=== PATIENT | male | born 1935 | race Caucasian/White ===

== ENCOUNTER 2017-02-04 16:53 | Inpatient (IN) | payer MEDICARE, BC ==
--- NOTE | 2017-02-04 17:41 | ER Document Report ---
ED General - General Time seen by provider: 17:38 Mode of Arrival: Medic Information source: Patient, Relative TRAVEL OUTSIDE OF THE [place] IN LAST 30 DAYS: No <CHILANGO LOPEZ - Last Filed: 02/04/17 20:14> <SHAMAR BELTRAN - Last Filed: 02/04/17 22:13> - General Chief Complaint: Shortness Of Breath Stated Complaint: RESPIRATORY DISTRESS Notes: 81-year-old male with 3 day history of worsening shortness of breath causing and uses home oxygen. He reports prior admission for pneumonia with similar symptoms. He also has history of COPD and is followed by pulmonology locally. He thinks his cough is been productive white or green sputum. He reports a remote history of cardiac bypass surgery and prior to that was having chest pain but he has not had any such symptoms recently. He reports no cardiac workup since his bypass surgery. He denies swelling to extremities, chest pain , abdominal pain, back pain, earache, sore throat, fevers, or chills. Has been using inhalers at home without improvement. He received one nebulizer treatment and 125 of soluMedrol IV from ambulance personnel in route. Physical Exam: General: Alert, appears well. HEENT: Normocephalic. Atraumatic. PERRLA. Extraocular movements intact. Oropharynx clear. Neck: Supple. Non-tender. Respiratory: Mild respiratory distress. Wheezes rhonchi throughout all lung hernandez with prolonged expiratory phase and diminished aeration Cardiovascular: Regular rate and rhythm. Abdominal: Normal Inspection. Soft, non-tender. No distension. Normal Bowel Sounds. Back: Non-tender. No deformity or step off. Extremities: Moves all four extremities. Upper extremities: Normal inspection. Non-tender. Normal color. Normal ROM. Normal temperature. Lower extremities: Normal inspection. Non-tender. No edema. Normal color. Normal ROM. Normal temperature. Neurological: Speech clear mentation normal engineering drawings checker strength 5 out of 5 equal both upper extremities motor function 5 out of 5 equal both lower extremities Psychological: Normal affect. Normal Mood. Skin: Warm. Dry. Normal color. (CHILANGO LOPEZ) - Related Data Allergies/Adverse Reactions: No Known Allergies Allergy (Verified 10/30/16 06:40) Past Medical History - Social History Smoking Status: Former Smoker Family History: Malignancy - Brain tumor - Past Medical History Cardiac Medical History: Reports: Hx Atrial Fibrillation, Hx Coronary Artery Disease, Hx Heart Attack - 08/2009, Hx Hypercholesterolemia, Hx Hypertension Pulmonary Medical History: Reports: Hx COPD, Hx Pneumonia Denies: Hx Asthma Neurological Medical History: Denies: Hx Cerebrovascular Accident, Hx Seizures GI Medical History: Denies: Hx Hepatitis, Hx Hiatal Hernia, Hx Ulcer Musculoskeltal Medical History: Reports Hx Arthritis, Reports Hx Musculoskeletal Trauma Psychiatric Medical History: Denies: Hx Depression Infectious Medical History: Denies: Hx Hepatitis Past Surgical History: Reports: Hx Appendectomy, Hx Coronary Artery Bypass Graft , Hx Open Heart Surgery, Hx Orthopedic Surgery - back surgery, Hx Pacemaker - Immunizations Immunizations up to date: Yes Hx Diphtheria, Pertussis, Tetanus Vaccination: Yes <CHILANGO LOPEZ - Last Filed: 02/04/17 20:14> Review of Systems - Review of Systems Constitutional: See HPI EENT: denies: Ear pain, Throat pain Cardiovascular: See HPI Respiratory: See HPI Gastrointestinal: denies: Abdominal pain, Diarrhea, Nausea, Vomiting, Blood in vomit, Black stools, Rectal bleeding Genitourinary: denies: Burning, Dysuria Musculoskeletal: Back pain - Chronic not different than baseline. denies: Leg swelling, Ankle swelling Skin: denies: Rash Hematologic/Lymphatic: denies: Swollen glands Neurological/Psychological: denies: Weakness, Numbness <CHILANGO LOPEZ - Last Filed: 02/04/17 20:14> Course - Laboratory Result Diagrams: 02/04/17 17:34 02/04/17 17:34 - Diagnostic Test Radiology reviewed: Image reviewed, Reports reviewed <CHILANGO LOPEZ - Last Filed: 02/04/17 20:14> - Laboratory Result Diagrams: 02/04/17 17:34 02/04/17 17:34 <SHAMAR BELTRAN - Last Filed: 02/04/17 22:13> - Re-evaluation Re-evalutation: 02/04/17 19:59 Patient is sitting up and eating and oxygen saturations 96% on 2 L as a cannula. Patient reports he does not routinely use oxygen at home. He did have some leftover after prior hospitalization. Attempt was made to discharge the patient but with ambulation of approximately 20 feet his oxygen saturation in room air about 84% and becomes quite short of breath. Do not believe he is safe for discharge now and will consult the hospitalist service for admission 02/04/17 20:14 (CHILANGO LOPEZ) - Vital Signs Vital signs: Temp Pulse Resp BP Pulse Ox 97.9 F 65 11 L 166/69 H 91 L 02/04/17 17:35 02/04/17 17:35 02/04/17 21:30 02/04/17 21:30 02/04/17 21:30 - Laboratory Laboratory results interpreted by me: 02/04/17 02/04/17 02/04/17 17:34 17:34 17:34 WBC 11.2 H Hgb 13.2 L RDW 15.8 H Eosinophils % 10.0 H Absolute Eosinophils 1.1 H Carbon Dioxide 33 H ALT 17 L NT-Pro-B Natriuret Pep 600 H - EKG Interpretation by Me Additional EKG results interpreted by me: 02/04/17 20:07 EKG 1 reviewed by myself sinus rhythm 64 acute change e old inferior TN EKG #2 reviewed by myself shows sinus rhythm at 70 to old inferior TN no acute changes no significant change from first (CHILANGO LOPEZ) Discharge <CHILANGO LOPEZ - Last Filed: 02/04/17 20:14> - Discharge Admitting Provider: Hospitalist Unit Admitted: Telemetry <SHAMAR BELTRAN - Last Filed: 02/04/17 22:13> - Discharge Clinical Impression: COPD with acute exacerbation, COPD exacerbation Condition: Fair Disposition: ADMITTED INPATIENT Additional Instructions: Chronic Obstructive Lung Disease You have chronic obstructive lung disease (COPD). The symptoms come from emphysema (damage to small airways, with trapping of air in large sacks in the lung) and chronic bronchitis (repeated infection and damage to larger airways). The cause is almost always cigarette smoking, although dust exposure, asthma, and infections contribute. You should avoid fumes, dust, and smoke (especially tobacco smoke). Your condition will flare from time to time. There is no cure, but the symptoms can be treated. Bronchodilators (asthma medicine) are often helpful. Antibiotics help when infection is present. When shortness of breath is severe, we may prescribe cortisone medication. If medicine doesn't help enough, we can arrange for you to have an oxygen tank at home. Notify your doctor at once if sputum becomes thick, foul, or bloody, if you develop a fever or chest pain, or if your shortness of breath worsens. See your regular doctor and your gamma facilities operator next week Prescriptions: Benzonatate [Tessalon Perle 100 mg Capsule] 100 mg PO Q8HP PRN #30 cap PRN Reason: Azithromycin [Zithromax 250 mg Tablet] 250 mg PO ASDIR PRN #6 tablet PRN Reason: Methylprednisolone [Medrol Dosepack (4 mg/Tab) 21 Tab/Dosepak] 4 mg PO ASDIR PRN #21 tab.ds.pk PRN Reason: Referrals: LILIANE VANEGAS NP [Primary Care Provider] - Follow up as needed
[2017-02-04 17:49] LABS: ABSOLUTE BASOPHILS # (AUTO) 0.1 10^3/uL (0.0-0.2); ABSOLUTE EOSINOPHILS # (AUTO) 1.1 10^3/uL (0.0-0.6); ABSOLUTE LYMPHOCYTES (AUTO) 3.5 10^3/uL (0.5-4.7); ABSOLUTE MONOCYTES (AUTO) 1.2 10^3/uL (0.1-1.4); ABSOLUTE NEUT (AUTO) 5.3 10^3/uL (1.7-8.2); BASOPHILS % (AUTO) 0.7 % (0-2); HEMATOCRIT 40.5 % (37.9-51.0); HEMOGLOBIN 13.2 g/dL (13.5-17.0); HGB HCT DIFFERENCE -0.9; LYMPHOCYTES % (AUTO) 31.2 % (13-45); MEAN CORPUSCULAR HEMOGLOBIN 28.9 pg (27.0-33.4); MEAN CORPUSCULAR HGB CONC 32.5 g/dL (32.0-36.0); MEAN CORPUSCULAR VOLUME 89 fl (80-97); MONOCYTES % (AUTO) 10.6 % (3-13); RED BLOOD COUNT 4.55 10^6/uL (4.35-5.55); RED CELL DISTRIBUTION WIDTH 15.8 % (11.5-14.0); SEGMENTED NEUTROPHILS % (AUTO) 47.5 % (42-78); WHITE BLOOD COUNT 11.2 10^3/uL (4.0-10.5)
[2017-02-04] MEDS ORDERED: IPRATROPIUM/ALBUTEROL 0.5-2.5 MG/3 ML AMPUL NEB ONE (17:56)
[2017-02-04 18:26] LABS: CREATINE KINASE MB 1.55 ng/mL (<4.55); TROPONIN I 0.013 ng/mL
[2017-02-04 18:34] LABS: ALANINE AMINOTRANSFERASE 17 U/L (21-72); ALBUMIN 4.3 g/dL (3.5-5.0); ALKALINE PHOSPHATASE 100 U/L (38-126); ANION GAP 12 (5-19); ASPARTATE AMINO TRANSFERASE 30 U/L (17-59); BILIRUBIN,TOTAL 0.8 mg/dL (0.2-1.3); BLOOD UREA NITROGEN 16 mg/dL (7-20); CALCIUM 9.9 mg/dL (8.4-10.2); CARBON DIOXIDE 33 mmol/L (22-30); CHLORIDE 99 mmol/L (98-107); CREATINE KINASE 72 U/L (55-170); CREATININE RESULT 0.84 mg/dL (0.52-1.25); DIGOXIN 1.18 ng/mL (0.8-2.0); GLUCOSE 100 mg/dL (75-110); MAGNESIUM 2.2 mg/dL (1.6-2.3); POTASSIUM 4.3 mmol/L (3.6-5.0); SODIUM 144.3 mmol/L (137-145)
[2017-02-04] MEDS ORDERED: AZITHROMYCIN 250 MG TABLET PO ONE (19:59)
--- NOTE | 2017-02-04 20:04 | EKG REPORT ---
SEVERITY:- ABNORMAL ECG - SINUS RHYTHM PROBABLE INFERIOR INFARCT, AGE INDETERMINATE : Confirmed by: Martha Mccall 04-Feb-2017 20:03:38
--- NOTE | 2017-02-04 20:07 | EKG REPORT ---
SEVERITY:- ABNORMAL ECG - SINUS RHYTHM PROBABLE INFERIOR INFARCT, AGE INDETERMINATE : Confirmed by: Martha Mccall 04-Feb-2017 20:07:06
[2017-02-05] MEDS ORDERED: DEXTROSE 50%-WATER 25 GM/50 ML DISP.SYRIN IV PRN ×2 (01:15)
[2017-02-05] MEDS ORDERED: GLUCAGON,HUMAN RECOMB 1 MG INJ IM PRN (01:15)
[2017-02-05] MEDS ORDERED: INSULIN LISPRO 100 UNIT/ML 3 ML VIAL SUBCUT PRN (01:15)
[2017-02-05] MEDS ORDERED: DEXTROSE 40% GEL 15 GM TUBE PO PRN ×2 (01:15)
[2017-02-05] MEDS ORDERED: DEXTROSE 5%-1/2 NORMAL SALINE 1,000 ML IV PRN (01:17)
[2017-02-05] MEDS ORDERED: ACETAMINOPHEN 325 MG TABLET PO PRN (01:17)
[2017-02-05] MEDS ORDERED: GUAIFENESIN SYRP 200 MG/10 ML UDC PO PRN (01:17)
[2017-02-05] MEDS ORDERED: MAGNESIUM HYDROXIDE SUSP 30 ML UDCUP PO PRN (01:22)
--- NOTE | 2017-02-05 01:37 | PDOC H&P ---
History of Present Illness Admission Date/PCP: 02/04/17 22:47 Rashmi Birch Neda Patient complains of: difficulty breathing History of Present Illness: JEAN-PIERRE OLIVAREZ is a 81 year old male, with underlying when necessary home O2 dependent COPD, typically rarely using oxygen, having stopped smoking in October when admitted here for pneumonia, who presents to the emergency room for a 3 day history of slowly progressive difficulty breathing. Difficulty breathing particular noticeable with much of any exertion. Has been using oxygen 24/7 over the last day or so. Home breathing treatments have not been very helpful. Cough productive of white and green sputum. No fever chills, nausea vomiting, or chest pain. No sick contacts. Up-to-date with flu vaccination. No prior intubation for respiratory difficulty. Patient has been discussed with emergency room physician who evaluated the patient. Initial plans by the emergency room physician were to send the patient home. However, once on room air, he became quite short of breath after only a few steps, with saturation dropping to 84% on room air. Hospitalist service then consulted. Hospitalized on our service October 30 through the of last year with final diagnoses including COPD exacerbation. Reported History in the not too distant past of MRSA and Escherichia coli pneumonia. History and physical and discharge summary have been reviewed.. Laboratory results are listed in [facility] and are reviewed. X-ray summary results are listed below, with full report(s) reviewed. . EKG's reviewed. And compared to tracing from October 30 of last year Social history/personal habits: . Lives with . 3 children. Retired. No tobacco use since above hospital stay. No alcohol or illicit drug use. Allergies/adverse reactions NKDA. Home medications Home medications initially autopopulated into [facility] may not accurately reflect patient's true medications, dosages, and/or frequencies. Unfortunately, patient uncertain of medications/dosages/frequencies. Order has been entered for staff to contact family, outpatient physician, and/or pharmacy to more accurately determine medications, dosages, and frequencies and to contact physician when that has been accomplished. REVIEW OF SYSTEMS: Constitutional: No fever or chills. Eyes: Wears glasses. ENT: No swallowing problems or complaints. No hearing problems or complaints. Pulmonary: See history and present illness. Cardiovascular: No current complaints, including chest pain. Gastrointestinal: No current complaints, including nausea or vomiting. Skin: No current complaints, including rashes. Hematologic: No unusual easy bruising or bleeding. Neurologic: No current complaints, including numbness or tingling. Musculoskeletal: Joint pain from arthritis. Psychiatric: No current complaints, including anxiety or depression. Endocrine: No current complaints, including polyuria. Genitourinary: No current complaints, including dysuria. PHYSICAL EXAMINATION: Temperature 97.9. 5 feet 10 inches tall. 68.2 kg. BMI 21.6 kg/m. Blood pressure 169/64. Pulse 71 and regular. Respirations are 18 and unlabored. 98 % saturation on 2 L oxygen per nasal cannula. Well-nourished well-developed elderly male appearing perhaps a bit younger than his stated age. Pleasant awake alert and cooperative. Appears to feel a bit under the weather, so to speak. Mildly anxious, without agitation. Perhaps slightly fatigued. Skin is warm and dry. No grossly obvious evidence of rash in areas of skin examined. No subcutaneous nodules palpated. ENT: Hearing grossly normal Mildly hard of hearing to normal conversation. Tongue midline on protrusion pink and slightly tacky.. Eyes: No scleral icterus. Pupils equal and reactive to light at 4 mm. [place] conjunctivae. Neck is supple and nontender to gentle active range of motion and palpation. Midline trachea. No palpable thyroid nodule mass enlargement or tenderness. Lymphatic: No palpable cervical or clavicular nodes. Neck and lymphatic exams limited by patient body habitus. Psychiatric: Reasonable insight into acute and chronic medical issues. Oriented to time location and why here. Lungs: Auscultation reveals equal breath sounds bilaterally. No use of accessory respiratory muscles. Mildly coarse breath sounds diffusely, with mild expiratory wheezing bilaterally. Cardiovascular: Heart regular rate and rhythm, without gallop murmur or rub. No carotid or abdominal aortic bruits. No ankle or pedal edema. palpable dorsalis pedis pulses. Abdomen: soft, , nontender with positive bowel sounds. No upper abdominal mass or organomegaly palpated.. Extremities: Feet are warm and dry. No calf tenderness to compression. No grossly obvious visual evidence of calf swelling. Gentle manipulation of lower extremities fails to reveal any obvious evidence of injury or instability to knees hips or ankles. Left lower extremity slightly smaller than right, chronic , since prior back surgery, per patient. Neurologic: Moves upper extremities grossly normally. Patellar reflexes absent. Absent Babinski. Light touch is intact at feet. plantarflexion of feet 5 / 5 and symmetric. Dorsiflexion of right foot 5 over 5; 3 over 5 on left , present since prior back surgery, per patient. Past Medical History Cardiac Medical History: Reports: Atrial Fibrillation - Aspirin only due to epistaxis with systemic anticoagulation., Coronary Artery Disease, Myocardial Infarction - 08/2009, Hyperlipidema, Hypertension Denies: DVT, Pulmonary Embolism Pulmonary Medical History: Reports: Chronic Obstructive Pulmonary Disease (COPD) , Pneumonia Denies: Asthma, Sleep Apnea Neurological Medical History: Denies: Hemorrhagic CVA, Ischemic CVA, Seizures Endocrine Medical History: Denies: Diabetes Mellitus Type 1, Diabetes Mellitus Type 2, Hyperthyroidism, Hypothyroidism Renal/ Medical History: Reports: None Malignancy Medical History: Reports: Skin Cancer GI Medical History: Reports: Gastroesophageal Reflux Disease Denies: Cirrhosis, Hepatitis, Hiatal Hernia, Peptic Ulcer Disease Musculoskeltal Medical History: Reports: Arthritis Psychiatric Medical History: Denies: Alcohol Dependency, Depression, General Anxiety Disorder, Substance Abuse, Tobacco Dependency - No tobacco use since October 2016 when admitted for COPD exacerbation. Hematology: Reports: Other - Easy bruising Denies: Anemia, Sickle Cell Disease Infectious Medical History: Reports: Methicillin-Resistant Staph Aureus Denies: Clostridium Difficile, Hepatitis B, Hepatitis C Past Surgical History Past Surgical History: Reports: Appendectomy, Coronary Artery Bypass Graft, Orthopedic Surgery - back surgery, Pacemaker Social History Information Source: Patient, Emergency Med Personnel, [facility] Records Lives with: Spouse/Significant other Smoking Status: Former Smoker Frequency of Alcohol Use: None Hx Recreational Drug Use: No Drugs: None Hx Prescription Drug Abuse: No - Advance Directive Resuscitation Status: Full Code Surrogate healthcare decision maker:: Family History Family History: Malignancy - Brain tumor Parental Family History Reviewed: Yes Children Family History Reviewed: Yes Sibling(s) Family History Reviewed.: Yes Medication/Allergy Home Medications: RX: Aspirin [Aspirin 325 mg Tablet] 325 mg PO DAILY 02/05/17 RX: Atorvastatin Calcium [Lipitor 80 mg Tablet] 80 mg PO QHS 02/05/17 RX: Gabapentin [Neurontin] 600 mg PO TID 02/05/17 RX: Hydrocodone/Acetaminophen [[place] 7.5-325 Tablet] 1 tab PO TIDP PRN 02/05/17 RX: Ipratropium/Albuterol Sulfate [Duoneb 3 ml Ampul] 3 ml NEB RTQ6 02/05/17 RX: Metoprolol Succinate [Toprol Xl 25 mg Tab.sr] 25 mg PO DAILY 02/05/17 RX: Ranitidine HCl [Zantac 150 mg Tablet] 150 mg PO BID 02/05/17 RX: Tamsulosin HCl [Flomax] 0.4 mg PO BID 02/05/17 Albuterol Sulfate [Ventolin 0.083% Neb 2.5 mg/3 ml Ampul] 2.5 mg NEB Q6HP PRN # 1 packet 02/10/17 Fluticasone/Salmeterol [Advair 250-50 Diskus 28 dose] 1 inh IH Q12H #1 inhaler 02/10/17 RX: Fluticasone Propionate [Flonase Nasal [place] 50 Mcg/[place] 16 gm] 1 spray NASL Q12 #1 spray.pump 02/10/17 RX: Linezolid [Zyvox 600 mg Tablet] 600 mg PO Q12 #28 tablet 02/10/17 RX: Montelukast Sodium [Singulair 10 mg Tablet] 10 mg PO QHS #30 tablet RX: Prednisone [Deltasone 20 mg Tablet] 40 mg PO BID #21 tablet 02/10/17 Allergies/Adverse Reactions: No Known Allergies Allergy (Verified 10/30/16 06:40) Physical Exam Vital Signs: Temp Pulse Resp BP Pulse Ox 97.9 F 65 12 177/71 H 97 02/04/17 17:35 02/04/17 17:35 02/04/17 23:01 02/04/17 23:00 02/04/17 23:01 Results Impressions: Chest X-Ray 02/04/17 17:35 IMPRESSION: No significant interval change. Obstructive lung disease. No acute changes are identified. Assessment & Plan - Diagnosis (1) COPD exacerbation Is this a current diagnosis for this admission?: YesPlan: Patient will be admitted under COPD exacerbation protocol. Incentive spirometry twice a day. Scheduled DuoNeb's. PRN albuterol nebs Solu-Medrol Prevacid for gastritis prophylaxis. Antibiotics will consist of intravenous Zithromax and cefepime.. I strongly encouraged patient to notify staff should patient feel that respiratory status is worsening. Patient is a full code. I have strongly encouraged patient not to get out of bed without notifying staff , , to avoid a fall with injury. Knee high SCDs for DVT prophylaxis, along with subcutaneous Lovenox Impression and plans were discussed with patient, who concurs. Time spent in evaluation and management of patient: 63 minutes. (2) Hypoxemia Is this a current diagnosis for this admission?: Yes (3) Atrial fibrillation Qualifiers: Atrial fibrillation type: paroxysmal Qualified Code(s): I48.0 - Paroxysmal atrial fibrillation Is this a current diagnosis for this admission?: YesPlan: Hemodynamically stable.Resume home medications as appropriate once these have been determined and reviewed. (4) CAD (coronary artery disease) Qualifiers: Coronary Disease-Associated Artery/Lesion type: [place] artery [place] vs. transplanted heart: [place] heart Associated angina: without angina Qualified Code(s): I25.10 - Atherosclerotic heart disease of [place] coronary artery without angina pectoris Is this a current diagnosis for this admission?: YesPlan: No evidence of acute coronary syndrome.Resume home medications as appropriate once these have been determined and reviewed. (5) HLD (hyperlipidemia) Qualifiers: Hyperlipidemia type: unspecified Qualified Code(s): E78.5 - Hyperlipidemia, unspecified Is this a current diagnosis for this admission?: YesPlan: Resume home medications as appropriate once these have been determined and reviewed. (6) HTN (hypertension) Qualifiers: Hypertension type: essential hypertension Qualified Code(s): I10 - Essential (primary) hypertension Is this a current diagnosis for this admission?: YesPlan: Resume home medications as appropriate once these have been determined and reviewed. (7) History of MRSA infection of lungs Is this a current diagnosis for this admission?: YesPlan: Contact precautions - Inpatient Certification Based on my medical assessment, after consideration of the patient's comorbidities, presenting symptoms, or acuity I expect that the services needed warrant INPATIENT care.: Yes I certify that my determination is in accordance with my understanding of Medicare's requirements for reasonable and necessary INPATIENT services [42 CFR 412.3e].: Yes Medical Necessity: Need Close Monitoring Due to Risk of Patient Decompensation, Need For Continuous Telemetry Monitoring, Need for Nebulizer Therapy and Monitoring of Response, Need for IV Antibiotics, Risk of Complication if Not Cared For in Hospital, Risk of Diagnosis Which Will Require Inpatient Eval/Care/ Monitoring Post Hospital Care: D/C or Transfer Summary
[2017-02-05] MEDS: ALBUTEROL SULFATE 0.083% NEB 2.5 MG/3 ML AMPUL NEB PRN ×4 (01:51→17:55)
[2017-02-05] MEDS ORDERED: CEFEPIME INJ 2 GM VIAL IV PRN (01:51)
[2017-02-05] MEDS ORDERED: CEFEPIME 2 GM/D5W RTU 2 GM/50 ML RTUPB IV SCH ×2 (02:00→04:00)
[2017-02-05] MEDS ORDERED: DOCUSATE SODIUM 100 MG CAPSULE PO SCH (02:00)
[2017-02-05] MEDS: METHYLPREDNISOLONE INJ 40 MG/1 ML SDV IV SCH ×3 (03:09→20:59)
[2017-02-05] MEDS ORDERED: CEFEPIME 2 GM/D5W RTU 2 GM/50 ML RTUPB IV ONE (03:54)
[2017-02-05] MEDS ORDERED: DOCUSATE SODIUM 100 MG CAPSULE PO ONE (04:00)
[2017-02-05] MEDS: LANSOPRAZOLE 30 MG TAB.RAP.DR PO SCH (05:15)
[2017-02-05 07:29] LABS: ABSOLUTE LYMPHOCYTES (AUTO) 0.9 10^3/uL (0.5-4.7); ABSOLUTE MONOCYTES (AUTO) 0.1 10^3/uL (0.1-1.4); BASOPHILS % (AUTO) 0.1 % (0-2); EOSINOPHILS % (AUTO) 0.1 % (0-6); HEMATOCRIT 41.3 % (37.9-51.0); HEMOGLOBIN 13.7 g/dL (13.5-17.0); HGB HCT DIFFERENCE -0.2; LYMPHOCYTES % (AUTO) 11.7 % (13-45); MEAN CORPUSCULAR HEMOGLOBIN 29.1 pg (27.0-33.4); MEAN CORPUSCULAR HGB CONC 33.2 g/dL (32.0-36.0); MEAN CORPUSCULAR VOLUME 88 fl (80-97); RED CELL DISTRIBUTION WIDTH 15.6 % (11.5-14.0); SEGMENTED NEUTROPHILS % (AUTO) 87.1 % (42-78); WHITE BLOOD COUNT 8.1 10^3/uL (4.0-10.5)
[2017-02-05] MEDS: IPRATROPIUM/ALBUTEROL 0.5-2.5 MG/3 ML AMPUL NEB SCH ×3 (08:09→19:38)
[2017-02-05] MEDS: ENOXAPARIN SODIUM INJ 40 MG/0.4 ML DISP.SYRIN SUBCUT SCH (09:29)
[2017-02-05] MEDS: DOCUSATE SODIUM 100 MG CAPSULE PO SCH ×2 (09:30→17:25)
[2017-02-05] MEDS: AZITHROMYCIN 500 MG in DEXTROSE 5%-WATER 250 ML IV SCH (09:30)
--- NOTE | 2017-02-05 15:37 | PDOC PROGRESS REPORT ---
Subjective Progress Note for:: 02/05/17 Subjective:: The patient was seen earlier today on rounds. Patient states that he feels much improved in comparison to when he came in. The patient admits to 2 separate episodes of dyspnea while at rest. The patient stated this improved when he got a nebulizer treatment. The patient denies any nausea, vomiting, diarrhea, shortness of breath, dizziness, chest pain, heart palpitations, fevers , or chills. The patient has remained afebrile. Blood pressures have been in a good range. When prompted the patient voices no other concerns at this time. Review of systems: The rest of the review of systems is negative. Physical Exam Vital Signs: Temp Pulse Resp BP Pulse Ox 97.8 F 85 20 156/75 H 96 02/05/17 12:06 02/05/17 13:56 02/05/17 13:56 02/05/17 12:06 02/05/17 13:56 Intake & Output 02/03/17 02/04/17 02/05/17 23:59 23:59 23:59 Intake Total 1201 Balance 1201 General appearance: PRESENT: no acute distress, cooperative, well-developed, well-nourished Head exam: PRESENT: atraumatic, normocephalic Eye exam: PRESENT: conjunctiva pink, EOMI, PERRLA. ABSENT: scleral icterus Ear exam: PRESENT: normal external ear exam Mouth exam: PRESENT: moist, tongue midline Neck exam: ABSENT: carotid bruit, JVD, lymphadenopathy, thyromegaly Respiratory exam: PRESENT: decreased breath sounds, symmetrical, tachypnea, wheezes. ABSENT: rales, rhonchi, unlabored Cardiovascular exam: PRESENT: RRR. ABSENT: diastolic murmur, rubs, systolic murmur Pulses: PRESENT: normal dorsalis pedis pul Vascular exam: PRESENT: normal capillary refill GI/Abdominal exam: PRESENT: normal bowel sounds, soft. ABSENT: distended, guarding, mass, organolmegaly, rebound, tenderness Rectal exam: PRESENT: deferred Extremities exam: PRESENT: full ROM. ABSENT: calf tenderness, clubbing, pedal edema Neurological exam: PRESENT: alert, awake, oriented to person, oriented to place , oriented to time, oriented to situation, CN II-XII grossly intact. ABSENT: motor sensory deficit Psychiatric exam: PRESENT: appropriate affect, normal mood. ABSENT: homicidal ideation, suicidal ideation Skin exam: PRESENT: dry, intact, warm. ABSENT: cyanosis, rash Results Laboratory Results: 02/05/17 06:35 02/05/17 06:35 WBC 8.1 RBC 4.70 Hgb 13.7 Hct 41.3 MCV 88 MCH 29.1 MCHC 33.2 RDW 15.6 H Plt Count 223 Seg Neutrophils % 87.1 H Lymphocytes % 11.7 L Monocytes % 1.0 L Eosinophils % 0.1 Basophils % 0.1 Absolute Neutrophils 7.0 Absolute Lymphocytes 0.9 Absolute Monocytes 0.1 Absolute Eosinophils 0.0 Absolute Basophils 0.0 Impressions: Chest X-Ray 02/04/17 17:35 IMPRESSION: No significant interval change. Obstructive lung disease. No acute changes are identified. Assessment & Plan - Diagnosis (1) COPD with acute exacerbation Is this a current diagnosis for this admission?: YesPlan: Continue nebulizer supplemental oxygen. Will add Mucinex, Singulair, Flonase, and start the patient on long acting inhaler Advair (2) Acute on chronic respiratory failure with hypoxemia Is this a current diagnosis for this admission?: YesPlan: Secondary to the above. Will continue supplemental O2. (3) Atrial fibrillation Qualifiers: Atrial fibrillation type: chronic Qualified Code(s): I48.2 - Chronic atrial fibrillation Is this a current diagnosis for this admission?: YesPlan: Patient currently in sinus rhythm will continue current medications (4) CAD (coronary artery disease) Qualifiers: Coronary Disease-Associated Artery/Lesion type: [place] artery [place] vs. transplanted heart: [place] heart Associated angina: without angina Qualified Code(s): I25.10 - Atherosclerotic heart disease of [place] coronary artery without angina pectoris Is this a current diagnosis for this admission?: YesPlan: Will continue current medications (5) HLD (hyperlipidemia) Qualifiers: Hyperlipidemia type: unspecified Qualified Code(s): E78.5 - Hyperlipidemia, unspecified Is this a current diagnosis for this admission?: Yes (6) HTN (hypertension) Qualifiers: Hypertension type: essential hypertension Qualified Code(s): I10 - Essential (primary) hypertension Is this a current diagnosis for this admission?: Yes (7) History of MRSA infection of lungs Is this a current diagnosis for this admission?: Yes - Time Time Spent with patient: 35 or more minutes Medications reviewed and adjusted accordingly: Yes Anticipated discharge: Home Within: within 48 hours
[2017-02-05] MEDS ORDERED: ASPIRIN 325 MG TABLET PO ONE (16:30)
[2017-02-05] MEDS: TAMSULOSIN HCL 0.4 MG CAP.SR.24H PO SCH (17:25)
[2017-02-05] MEDS: ASPIRIN 325 MG TABLET PO SCH (17:25)
[2017-02-05] MEDS: CEFEPIME HCL 2 GM in DEXTROSE 5%-WATER 50 ML IV SCH (17:27)
[2017-02-05] MEDS ORDERED: GUAIFENESIN 600 MG TABLET.SA PO ONE (18:00)
[2017-02-05] MEDS ORDERED: (PENDING PHARMACY ID) (Ranitidine Hcl [Zantac 150 Mg Tablet] 150 MG) PO SCH (18:00)
[2017-02-05] MEDS ORDERED: AZITHROMYCIN 500 MG in DEXTROSE 5%-WATER 250 ML IV SCH (20:00)
[2017-02-05] MEDS: FAMOTIDINE 20 MG TABLET PO SCH (21:00)
[2017-02-05] MEDS: FLUTICASONE/SALMETEROL DISKUS 250-50 MCG/DOSE IH SCH (21:00)
[2017-02-05] MEDS: FLUTICASONE NASAL SPRAY 50 MCG/SPRY 120 SPRAY/16 GM NASL SCH (21:00)
[2017-02-05] MEDS: GUAIFENESIN 600 MG TABLET.SA PO SCH (21:01)
[2017-02-05] MEDS: MONTELUKAST SODIUM 10 MG TABLET PO SCH (21:01)
[2017-02-05] MEDS: ATORVASTATIN CALCIUM 80 MG TABLET PO SCH (21:01)
[2017-02-05] MEDS: GABAPENTIN 300 MG CAPSULE PO SCH (21:02)
[2017-02-06] MEDS: METHYLPREDNISOLONE INJ 40 MG/1 ML SDV IV SCH ×2 (03:29→12:31)
[2017-02-06] MEDS: HYDROCODONE/ACETAMINOPHEN 7.5-325 MG TABLET PO PRN (03:37)
[2017-02-06] MEDS: LANSOPRAZOLE 30 MG TAB.RAP.DR PO SCH (05:43)
[2017-02-06] MEDS: GABAPENTIN 300 MG CAPSULE PO SCH ×3 (05:43→23:58)
[2017-02-06] MEDS: CEFEPIME HCL 2 GM in DEXTROSE 5%-WATER 50 ML IV SCH ×2 (05:43→18:58)
[2017-02-06 08:22] LABS: ABSOLUTE MONOCYTES (AUTO) 0.4 10^3/uL (0.1-1.4); ABSOLUTE NEUT (AUTO) 14.8 10^3/uL (1.7-8.2); HEMATOCRIT 35.8 % (37.9-51.0); HEMOGLOBIN 11.8 g/dL (13.5-17.0); HGB HCT DIFFERENCE -0.4; LYMPHOCYTES % (AUTO) 6.1 % (13-45); MEAN CORPUSCULAR HEMOGLOBIN 28.9 pg (27.0-33.4); MEAN CORPUSCULAR HGB CONC 32.9 g/dL (32.0-36.0); MEAN CORPUSCULAR VOLUME 88 fl (80-97); MONOCYTES % (AUTO) 2.8 % (3-13); RED BLOOD COUNT 4.07 10^6/uL (4.35-5.55); SEGMENTED NEUTROPHILS % (AUTO) 91.1 % (42-78); WHITE BLOOD COUNT 16.2 10^3/uL (4.0-10.5)
[2017-02-06 08:38] LABS: ANION GAP 7 (5-19); BLOOD UREA NITROGEN 21 mg/dL (7-20); CALCIUM 9.6 mg/dL (8.4-10.2); CARBON DIOXIDE 32 mmol/L (22-30); CHLORIDE 103 mmol/L (98-107); CREATININE RESULT 0.79 mg/dL (0.52-1.25); GLUCOSE 131 mg/dL (75-110); POTASSIUM 5.1 mmol/L (3.6-5.0); SODIUM 141.6 mmol/L (137-145)
[2017-02-06] MEDS: IPRATROPIUM/ALBUTEROL 0.5-2.5 MG/3 ML AMPUL NEB SCH ×3 (08:59→20:14)
[2017-02-06] MEDS: METOPROLOL SUCCINATE 25 MG TAB.SR.24H PO SCH (09:50)
[2017-02-06] MEDS: GUAIFENESIN 600 MG TABLET.SA PO SCH ×2 (09:50→23:58)
[2017-02-06] MEDS: ENOXAPARIN SODIUM INJ 40 MG/0.4 ML DISP.SYRIN SUBCUT SCH (09:51)
[2017-02-06] MEDS: FAMOTIDINE 20 MG TABLET PO SCH ×2 (09:51→23:58)
[2017-02-06] MEDS: AZITHROMYCIN 500 MG in DEXTROSE 5%-WATER 250 ML IV SCH (09:51)
[2017-02-06] MEDS: TAMSULOSIN HCL 0.4 MG CAP.SR.24H PO SCH ×2 (09:51→18:54)
[2017-02-06] MEDS: DOCUSATE SODIUM 100 MG CAPSULE PO SCH ×2 (09:52→18:54)
[2017-02-06] MEDS: FLUTICASONE NASAL SPRAY 50 MCG/SPRY 120 SPRAY/16 GM NASL SCH ×2 (09:59→23:59)
[2017-02-06] MEDS: FLUTICASONE/SALMETEROL DISKUS 250-50 MCG/DOSE IH SCH ×2 (10:00→23:59)
--- NOTE | 2017-02-06 13:49 | PDOC PROGRESS REPORT ---
Subjective Progress Note for:: 02/06/17 Subjective:: Patient reports he moved his bowels yesterday. He reports his shortness of breath has greatly improved since admission. Patient denies chest pain, abdominal pain, nausea, vomiting, fevers, chills, diarrhea, constipation, headache, new onset weakness. Physical Exam Vital Signs: Temp Pulse Resp BP Pulse Ox 97.4 F 62 18 144/51 H 96 02/06/17 08:37 02/06/17 08:59 02/06/17 08:59 02/06/17 08:37 02/06/17 08:37 Intake & Output 02/05/17 02/06/17 02/07/17 06:59 06:59 07:59 Intake Total 741 2170 Output Total 1100 Balance 741 1070 Weight 67.8 kg Exam: General: Awake alert and oriented x3, no acute respiratory distress HEENT: AT/NC, PERRL, EOMI, oropharynx is moist, pink, no scleral icterus, no conjunctival injection Neck: No JVD, trachea midline Chest: Bilateral end expiratory wheezes CV: Regular rate and rhythm, normal S1 and S2, no rub or gallop Abdomen: Soft, nontender to palpation, nondistended, active bowel sounds; no rebound, rigidity, or guarding Extremities: No cyanosis, clubbing or edema Neuro: Cranial nerves II through XII are grossly intact without focal deficits; awake alert and oriented x3 Psych: Normal mood and affect Results Laboratory Results: 02/06/17 08:07 02/06/17 08:07 02/06/17 02/06/17 08:07 08:07 WBC 16.2 H RBC 4.07 L Hgb 11.8 L Hct 35.8 L MCV 88 MCH 28.9 MCHC 32.9 RDW 16.0 H Plt Count 213 Seg Neutrophils % 91.1 H Lymphocytes % 6.1 L Monocytes % 2.8 L Eosinophils % 0.0 Basophils % 0.0 Absolute Neutrophils 14.8 H Absolute Lymphocytes 1.0 Absolute Monocytes 0.4 Absolute Eosinophils 0.0 Absolute Basophils 0.0 Sodium 141.6 Potassium 5.1 H Chloride 103 Carbon Dioxide 32 H Anion Gap 7 BUN 21 H Creatinine 0.79 Est GFR ( Amer) > 60 Est GFR (Non-Af Amer) > 60 Glucose 131 H Calcium 9.6 02/05/17 03:30 Nasophary ([facility] Only) MRSA Surveillance Culture - Final NO MRSA RECOVERED Impressions: Chest X-Ray 02/04/17 17:35 IMPRESSION: No significant interval change. Obstructive lung disease. No acute changes are identified. Assessment & Plan - Diagnosis (1) Acute on chronic respiratory failure with hypoxemia Is this a current diagnosis for this admission?: YesPlan: Continue oxygen. Continue treatment for underlying pneumonia. Patient reports he has been a smoker until proximally 5 months ago. (2) COPD with acute exacerbation Is this a current diagnosis for this admission?: YesPlan: Will increase patient's soluMedrol today with hopes of decreasing it tomorrow. He is still quite bronchospastic. Scheduled nebulized treatments. (3) Atrial fibrillation Qualifiers: Atrial fibrillation type: paroxysmal Qualified Code(s): I48.0 - Paroxysmal atrial fibrillation Is this a current diagnosis for this admission?: YesPlan: Patient currently in sinus rhythm. Patient is not on anything for this. Previous atrial fibrillation was likely driven by his COPD. (4) CAD (coronary artery disease) Qualifiers: Coronary Disease-Associated Artery/Lesion type: [place] artery [place] vs. transplanted heart: [place] heart Associated angina: without angina Qualified Code(s): I25.10 - Atherosclerotic heart disease of [place] coronary artery without angina pectoris Is this a current diagnosis for this admission?: Yes (5) HLD (hyperlipidemia) Qualifiers: Hyperlipidemia type: unspecified Qualified Code(s): E78.5 - Hyperlipidemia, unspecified Is this a current diagnosis for this admission?: Yes (6) HTN (hypertension) Qualifiers: Hypertension type: essential hypertension Qualified Code(s): I10 - Essential (primary) hypertension Is this a current diagnosis for this admission?: Yes (7) History of MRSA infection of lungs Is this a current diagnosis for this admission?: YesPlan: We'll place patient on linezolid pending sputum culture. - Time Time Spent with patient: 25-34 minutes Medications reviewed and adjusted accordingly: Yes
[2017-02-06] MEDS: ASPIRIN 325 MG TABLET PO SCH (18:54)
[2017-02-06] MEDS ORDERED: METHYLPREDNISOLONE INJ 40 MG/1 ML SDV IV SCH (22:00)
[2017-02-06] MEDS ORDERED: METHYLPREDNISOLONE INJ 125 MG/2 ML SDV IV SCH (23:45)
[2017-02-06] MEDS: ATORVASTATIN CALCIUM 80 MG TABLET PO SCH (23:57)
[2017-02-06] MEDS: MONTELUKAST SODIUM 10 MG TABLET PO SCH (23:58)
[2017-02-06] MEDS: LINEZOLID 600 MG TABLET PO SCH (23:59)
[2017-02-07] MEDS: HYDROCODONE/ACETAMINOPHEN 7.5-325 MG TABLET PO PRN ×2 (00:15→17:48)
[2017-02-07] MEDS: LANSOPRAZOLE 30 MG TAB.RAP.DR PO SCH (05:29)
[2017-02-07] MEDS: GABAPENTIN 300 MG CAPSULE PO SCH ×3 (05:29→22:21)
[2017-02-07] MEDS: CEFEPIME HCL 2 GM in DEXTROSE 5%-WATER 50 ML IV SCH ×2 (05:29→17:16)
[2017-02-07] MEDS: IPRATROPIUM/ALBUTEROL 0.5-2.5 MG/3 ML AMPUL NEB SCH ×3 (08:07→20:21)
[2017-02-07] MEDS: ENOXAPARIN SODIUM INJ 40 MG/0.4 ML DISP.SYRIN SUBCUT SCH (08:15)
[2017-02-07] MEDS: GUAIFENESIN 600 MG TABLET.SA PO SCH ×2 (09:58→22:21)
[2017-02-07] MEDS: METOPROLOL SUCCINATE 25 MG TAB.SR.24H PO SCH (09:58)
[2017-02-07] MEDS: AZITHROMYCIN 250 MG TABLET PO SCH (09:59)
[2017-02-07] MEDS: FAMOTIDINE 20 MG TABLET PO SCH ×2 (09:59→22:21)
[2017-02-07] MEDS: DOCUSATE SODIUM 100 MG CAPSULE PO SCH ×2 (09:59→17:15)
[2017-02-07] MEDS: TAMSULOSIN HCL 0.4 MG CAP.SR.24H PO SCH ×2 (09:59→17:15)
[2017-02-07] MEDS: FLUTICASONE NASAL SPRAY 50 MCG/SPRY 120 SPRAY/16 GM NASL SCH ×2 (10:00→22:21)
[2017-02-07] MEDS: FLUTICASONE/SALMETEROL DISKUS 250-50 MCG/DOSE IH SCH ×2 (10:00→22:22)
[2017-02-07] MEDS: LINEZOLID 600 MG TABLET PO SCH ×2 (10:00→22:21)
[2017-02-07 11:26] LABS: HEMATOCRIT 36.3 % (37.9-51.0); HEMOGLOBIN 11.9 g/dL (13.5-17.0); HGB HCT DIFFERENCE -0.6; MEAN CORPUSCULAR HEMOGLOBIN 28.8 pg (27.0-33.4); MEAN CORPUSCULAR HGB CONC 32.8 g/dL (32.0-36.0); MEAN CORPUSCULAR VOLUME 88 fl (80-97); RED BLOOD COUNT 4.13 10^6/uL (4.35-5.55); RED CELL DISTRIBUTION WIDTH 15.6 % (11.5-14.0); WHITE BLOOD COUNT 14.6 10^3/uL (4.0-10.5)
[2017-02-07 11:31] LABS: ANION GAP 7 (5-19); BLOOD UREA NITROGEN 23 mg/dL (7-20); CALCIUM 9.3 mg/dL (8.4-10.2); CARBON DIOXIDE 29 mmol/L (22-30); CHLORIDE 101 mmol/L (98-107); GLUCOSE 161 mg/dL (75-110); POTASSIUM 4.5 mmol/L (3.6-5.0); SODIUM 136.8 mmol/L (137-145)
[2017-02-07 11:47] LABS: BASOPHILS % (MANUAL) 0 % (0-2); EOSINOPHILS % (MANUAL) 0 % (0-6); LYMPHOCYTES % (MANUAL) 3 % (13-45); TOTAL CELLS COUNTED 100
[2017-02-07 11:48] LABS: ANISOCYTOSIS SLIGHT; HYPOCHROMASIA SLIGHT; OVALOCYTES SLIGHT; POIKILOCYTOSIS SLIGHT; TEAR DROP CELLS SLIGHT
[2017-02-07] MEDS: ASPIRIN 325 MG TABLET PO SCH (17:15)
[2017-02-07] MEDS: MONTELUKAST SODIUM 10 MG TABLET PO SCH (22:21)
[2017-02-07] MEDS: ATORVASTATIN CALCIUM 80 MG TABLET PO SCH (22:21)
[2017-02-08] MEDS: HYDROCODONE/ACETAMINOPHEN 7.5-325 MG TABLET PO PRN ×3 (01:23→22:21)
[2017-02-08] MEDS: CEFEPIME HCL 2 GM in DEXTROSE 5%-WATER 50 ML IV SCH ×2 (06:46→18:05)
[2017-02-08] MEDS: LANSOPRAZOLE 30 MG TAB.RAP.DR PO SCH (06:46)
[2017-02-08] MEDS: GABAPENTIN 300 MG CAPSULE PO SCH ×3 (06:46→22:19)
[2017-02-08] MEDS: IPRATROPIUM/ALBUTEROL 0.5-2.5 MG/3 ML AMPUL NEB SCH ×3 (07:57→19:56)
[2017-02-08] MEDS: ENOXAPARIN SODIUM INJ 40 MG/0.4 ML DISP.SYRIN SUBCUT SCH (09:34)
[2017-02-08] MEDS: FLUTICASONE NASAL SPRAY 50 MCG/SPRY 120 SPRAY/16 GM NASL SCH ×2 (09:35→22:19)
[2017-02-08] MEDS: FLUTICASONE/SALMETEROL DISKUS 250-50 MCG/DOSE IH SCH ×2 (09:35→22:19)
[2017-02-08] MEDS: TAMSULOSIN HCL 0.4 MG CAP.SR.24H PO SCH ×2 (09:36→18:06)
[2017-02-08] MEDS: DOCUSATE SODIUM 100 MG CAPSULE PO SCH ×2 (09:36→18:06)
[2017-02-08] MEDS: METOPROLOL SUCCINATE 25 MG TAB.SR.24H PO SCH (09:36)
[2017-02-08] MEDS: FAMOTIDINE 20 MG TABLET PO SCH ×2 (09:37→22:19)
[2017-02-08] MEDS: LINEZOLID 600 MG TABLET PO SCH ×2 (09:37→22:20)
[2017-02-08] MEDS: AZITHROMYCIN 250 MG TABLET PO SCH (09:37)
[2017-02-08] MEDS: GUAIFENESIN 600 MG TABLET.SA PO SCH ×2 (09:37→22:19)
--- NOTE | 2017-02-08 16:20 | PDOC PROGRESS REPORT ---
Subjective Progress Note for:: 02/07/17 Subjective:: This is a late entry for Reynaldo Figueroa for date of service 02/07/2017. Patient seen earlier that they are rounding. Patient complains of being unable to sleep. Patient is sleeping when I enter the room. No acute events overnight. Patient denies chest pain, abdominal pain, nausea, vomiting, fevers, chills, diarrhea, constipation, headache, new onset weakness. Physical Exam Vital Signs: Temp Pulse Resp BP Pulse Ox 97.6 F 65 18 161/59 H 99 02/08/17 07:42 02/08/17 07:42 02/08/17 07:42 02/08/17 07:42 02/08/17 07:42 Intake & Output 02/07/17 02/08/17 02/09/17 06:59 06:59 06:59 Intake Total 760 Output Total Balance 760 Weight Exam: General: Awake alert and oriented x3, no acute respiratory distress HEENT: AT/NC, PERRL, EOMI, oropharynx is moist, pink, no scleral icterus, no conjunctival injection Neck: No JVD, trachea midline Chest: Light Bilateral end expiratory wheezes CV: Regular rate and rhythm, normal S1 and S2, no rub or gallop Abdomen: Soft, nontender to palpation, nondistended, active bowel sounds; no rebound, rigidity, or guarding Extremities: No cyanosis, clubbing or edema Neuro: Cranial nerves II through XII are grossly intact without focal deficits; awake alert and oriented x3 Psych: Normal mood and affect Results Laboratory Results: 02/07/17 11:01 02/07/17 11:01 02/07/17 02/07/17 11:01 11:01 WBC 14.6 H RBC 4.13 L Hgb 11.9 L Hct 36.3 L MCV 88 MCH 28.8 MCHC 32.8 RDW 15.6 H Plt Count 226 Seg Neutrophils % Not Reportable Lymphocytes % Not Reportable Monocytes % Not Reportable Eosinophils % Not Reportable Basophils % Not Reportable Absolute Neutrophils Not Reportable Absolute Lymphocytes Not Reportable Absolute Monocytes Not Reportable Absolute Eosinophils Not Reportable Absolute Basophils Not Reportable Sodium 136.8 L Potassium 4.5 Chloride 101 Carbon Dioxide 29 Anion Gap 7 BUN 23 H Creatinine 0.80 Est GFR ( Amer) > 60 Est GFR (Non-Af Amer) > 60 Glucose 161 H Calcium 9.3 Impressions: Chest X-Ray 02/04/17 17:35 IMPRESSION: No significant interval change. Obstructive lung disease. No acute changes are identified. Assessment & Plan - Diagnosis (1) Acute on chronic respiratory failure with hypoxemia Is this a current diagnosis for this admission?: YesPlan: Continue oxygen. Continue treatment for underlying pneumonia. Patient reports he has been a smoker until proximally 5 months ago. (2) COPD with acute exacerbation Is this a current diagnosis for this admission?: YesPlan: Continue Solu-Medrol today. Plan to decrease tomorrow. Patient with significant wheezing. Encourage incentive spirometry and flutter valve. Encourage aggressive pulmonary toilet. Scheduled nebulized treatments. (3) Atrial fibrillation Qualifiers: Atrial fibrillation type: paroxysmal Qualified Code(s): I48.0 - Paroxysmal atrial fibrillation Is this a current diagnosis for this admission?: YesPlan: Currently in sinus. On metoprolol and aspirin. (4) CAD (coronary artery disease) Qualifiers: Coronary Disease-Associated Artery/Lesion type: [place] artery [place] vs. transplanted heart: [place] heart Associated angina: without angina Qualified Code(s): I25.10 - Atherosclerotic heart disease of [place] coronary artery without angina pectoris Is this a current diagnosis for this admission?: Yes (5) HLD (hyperlipidemia) Qualifiers: Hyperlipidemia type: unspecified Qualified Code(s): E78.5 - Hyperlipidemia, unspecified Is this a current diagnosis for this admission?: Yes (6) HTN (hypertension) Qualifiers: Hypertension type: essential hypertension Qualified Code(s): I10 - Essential (primary) hypertension Is this a current diagnosis for this admission?: Yes (7) History of MRSA infection of lungs Is this a current diagnosis for this admission?: YesPlan: We'll place patient on linezolid pending sputum culture. - Time Time Spent with patient: 25-34 minutes Medications reviewed and adjusted accordingly: Yes
--- NOTE | 2017-02-08 16:25 | PDOC PROGRESS REPORT ---
Subjective Progress Note for:: 02/08/17 Subjective:: Patient reports his shortness of breath is greatly improved. He reports he has not had a bowel movement in 2 days. He also continues to complain of insomnia. Patient denies chest pain, abdominal pain, nausea, vomiting, fevers, chills, diarrhea, constipation, headache, new onset weakness. Daughter is daughter is present at bedside Physical Exam Vital Signs: Temp Pulse Resp BP Pulse Ox 97.6 F 65 18 161/59 H 99 02/08/17 07:42 02/08/17 07:42 02/08/17 07:42 02/08/17 07:42 02/08/17 07:42 Intake & Output 02/07/17 02/08/17 02/09/17 06:59 06:59 06:59 Intake Total 760 Output Total Balance 760 Weight Exam: General: Awake alert and oriented x3, no acute respiratory distress HEENT: AT/NC, PERRL, EOMI, oropharynx is moist, pink, no scleral icterus, no conjunctival injection Neck: No JVD, trachea midline Chest: Coarse bilaterally, pleural rub CV: Regular rate and rhythm, normal S1 and S2, no rub or gallop Abdomen: Soft, nontender to palpation, nondistended, active bowel sounds; no rebound, rigidity, or guarding Extremities: No cyanosis, clubbing or edema Neuro: Cranial nerves II through XII are grossly intact without focal deficits; awake alert and oriented x3 Psych: Normal mood and affect Results Laboratory Results: 02/07/17 11:01 02/07/17 11:01 02/07/17 02/07/17 11:01 11:01 WBC 14.6 H RBC 4.13 L Hgb 11.9 L Hct 36.3 L MCV 88 MCH 28.8 MCHC 32.8 RDW 15.6 H Plt Count 226 Seg Neutrophils % Not Reportable Lymphocytes % Not Reportable Monocytes % Not Reportable Eosinophils % Not Reportable Basophils % Not Reportable Absolute Neutrophils Not Reportable Absolute Lymphocytes Not Reportable Absolute Monocytes Not Reportable Absolute Eosinophils Not Reportable Absolute Basophils Not Reportable Sodium 136.8 L Potassium 4.5 Chloride 101 Carbon Dioxide 29 Anion Gap 7 BUN 23 H Creatinine 0.80 Est GFR ( Amer) > 60 Est GFR (Non-Af Amer) > 60 Glucose 161 H Calcium 9.3 Impressions: Chest X-Ray 02/04/17 17:35 IMPRESSION: No significant interval change. Obstructive lung disease. No acute changes are identified. Assessment & Plan - Diagnosis (1) Acute on chronic respiratory failure with hypoxemia Is this a current diagnosis for this admission?: YesPlan: Continue oxygen. Continue treatment for underlying pneumonia. Patient reports he has been a smoker until proximally 5 months ago. (2) COPD with acute exacerbation Is this a current diagnosis for this admission?: YesPlan: Decrease Solu-Medrol today. Encourage incentive spirometry and flutter valve. Encourage aggressive pulmonary toilet. Scheduled nebulized treatments. Encourage ambulation (3) Atrial fibrillation Qualifiers: Atrial fibrillation type: paroxysmal Qualified Code(s): I48.0 - Paroxysmal atrial fibrillation Is this a current diagnosis for this admission?: YesPlan: Currently in sinus. On metoprolol and aspirin. (4) CAD (coronary artery disease) Qualifiers: Coronary Disease-Associated Artery/Lesion type: [place] artery [place] vs. transplanted heart: [place] heart Associated angina: without angina Qualified Code(s): I25.10 - Atherosclerotic heart disease of [place] coronary artery without angina pectoris Is this a current diagnosis for this admission?: Yes (5) HLD (hyperlipidemia) Qualifiers: Hyperlipidemia type: unspecified Qualified Code(s): E78.5 - Hyperlipidemia, unspecified Is this a current diagnosis for this admission?: Yes (6) HTN (hypertension) Qualifiers: Hypertension type: essential hypertension Qualified Code(s): I10 - Essential (primary) hypertension Is this a current diagnosis for this admission?: Yes (7) History of MRSA infection of lungs Is this a current diagnosis for this admission?: YesPlan: We'll place patient on linezolid pending sputum culture. Currently growing gram -positive cocci. (8) Insomnia Qualifiers: Insomnia type: unspecified Qualified Code(s): G47.00 - Insomnia, unspecified Is this a current diagnosis for this admission?: YesPlan: Place patient on trazodone 25 mg by mouth daily at bedtime may repeat 1 for insomnia. He reports he normally doesn't take anything at home, but being in the hospital makes him an unable asleep. Feel that reducing his steroids will also improve this. - Time Time Spent with patient: 25-34 minutes Medications reviewed and adjusted accordingly: Yes Anticipated discharge: Home Within: within 48 hours
[2017-02-08] MEDS: ASPIRIN 325 MG TABLET PO SCH (18:06)
[2017-02-08] MEDS: ACETYLCYSTEINE 20% SOLN 800 MG/4 ML VIAL.NEB NEB SCH (19:56)
[2017-02-08] MEDS ORDERED: TRAZODONE HCL 50 MG TABLET PO SCH (22:00)
[2017-02-08] MEDS: ATORVASTATIN CALCIUM 80 MG TABLET PO SCH (22:19)
[2017-02-08] MEDS: METHYLPREDNISOLONE INJ 125 MG/2 ML SDV IV SCH (22:20)
[2017-02-08] MEDS: TRAZODONE HCL 50 MG TABLET PO SCH (22:20)
[2017-02-08] MEDS: MONTELUKAST SODIUM 10 MG TABLET PO SCH (22:20)
[2017-02-09] MEDS: GABAPENTIN 300 MG CAPSULE PO SCH ×3 (06:31→22:12)
[2017-02-09] MEDS: METHYLPREDNISOLONE INJ 125 MG/2 ML SDV IV SCH ×2 (06:32→14:30)
[2017-02-09] MEDS: CEFEPIME HCL 2 GM in DEXTROSE 5%-WATER 50 ML IV SCH (06:32)
[2017-02-09] MEDS: LANSOPRAZOLE 30 MG TAB.RAP.DR PO SCH (06:32)
[2017-02-09] MEDS: ENOXAPARIN SODIUM INJ 40 MG/0.4 ML DISP.SYRIN SUBCUT SCH (08:21)
[2017-02-09] MEDS: IPRATROPIUM/ALBUTEROL 0.5-2.5 MG/3 ML AMPUL NEB SCH ×3 (08:45→20:01)
[2017-02-09] MEDS: ACETYLCYSTEINE 20% SOLN 800 MG/4 ML VIAL.NEB NEB SCH ×2 (08:46→20:01)
[2017-02-09] MEDS: DOCUSATE SODIUM 100 MG CAPSULE PO SCH ×2 (10:10→18:06)
[2017-02-09] MEDS: LINEZOLID 600 MG TABLET PO SCH ×2 (10:10→22:12)
[2017-02-09] MEDS: AZITHROMYCIN 250 MG TABLET PO SCH (10:10)
[2017-02-09] MEDS: FAMOTIDINE 20 MG TABLET PO SCH ×2 (10:10→22:12)
[2017-02-09] MEDS: METOPROLOL SUCCINATE 25 MG TAB.SR.24H PO SCH (10:11)
[2017-02-09] MEDS: GUAIFENESIN 600 MG TABLET.SA PO SCH ×2 (10:11→22:12)
[2017-02-09] MEDS: FLUTICASONE NASAL SPRAY 50 MCG/SPRY 120 SPRAY/16 GM NASL SCH ×2 (10:12→22:11)
[2017-02-09] MEDS: FLUTICASONE/SALMETEROL DISKUS 250-50 MCG/DOSE IH SCH ×2 (10:12→22:11)
[2017-02-09] MEDS: TAMSULOSIN HCL 0.4 MG CAP.SR.24H PO SCH ×2 (10:16→18:07)
[2017-02-09] MEDS: ASPIRIN 325 MG TABLET PO SCH (18:06)
[2017-02-09] MEDS: PREDNISONE 20 MG TABLET PO SCH (18:07)
[2017-02-09] MEDS: HYDROCODONE/ACETAMINOPHEN 7.5-325 MG TABLET PO PRN (18:55)
[2017-02-09] MEDS: MONTELUKAST SODIUM 10 MG TABLET PO SCH (22:12)
[2017-02-09] MEDS: ATORVASTATIN CALCIUM 80 MG TABLET PO SCH (22:12)
[2017-02-09] MEDS: TRAZODONE HCL 50 MG TABLET PO SCH (22:13)
--- NOTE | 2017-02-09 23:29 | PDOC PROGRESS REPORT ---
Subjective Progress Note for:: 02/09/17 Subjective:: Patient reports he slept well last night with trazodone. Patient reports he is breathing better. He reports he's been ambulating in the [place]. Patient denies chest pain, abdominal pain, nausea, vomiting, fevers, chills, diarrhea, constipation, headache, new onset weakness. Physical Exam Vital Signs: Temp Pulse Resp BP Pulse Ox 97.5 F 73 16 114/61 96 02/09/17 03:20 02/09/17 03:28 02/09/17 03:20 02/09/17 03:20 02/09/17 04:00 Intake & Output 02/08/17 02/09/17 02/10/17 06:59 06:59 06:59 Intake Total 760 1010 Output Total 400 Balance 760 610 Weight 64.9 kg Exam: General: Awake alert and oriented x3, no acute respiratory distress HEENT: AT/NC, PERRL, EOMI, oropharynx is moist, pink, no scleral icterus, no conjunctival injection Neck: No JVD, trachea midline Chest: Slight bilateral end expiratory wheezes, occasional rhonchi CV: Regular rate and rhythm, normal S1 and S2, no rub or gallop Abdomen: Soft, nontender to palpation, nondistended, active bowel sounds; no rebound, rigidity, or guarding Extremities: No cyanosis, clubbing or edema Neuro: Cranial nerves II through XII are grossly intact without focal deficits; awake alert and oriented x3 Psych: Normal mood and affect Results Laboratory Results: 02/07/17 11:01 02/07/17 11:01 Impressions: Chest X-Ray 02/04/17 17:35 IMPRESSION: No significant interval change. Obstructive lung disease. No acute changes are identified. Assessment & Plan - Diagnosis (1) Acute on chronic respiratory failure with hypoxemia Is this a current diagnosis for this admission?: YesPlan: Continue oxygen. Continue treatment for underlying pneumonia. Patient reports he has been a smoker until proximally 5 months ago. (2) COPD with acute exacerbation Is this a current diagnosis for this admission?: YesPlan: Attempt transition to prednisone Encourage incentive spirometry and flutter valve. Encourage aggressive pulmonary toilet. Scheduled nebulized treatments. Encourage ambulation Patiently currently growing MRSA in the sputum. Patient on linezolid alone. (3) Atrial fibrillation Qualifiers: Atrial fibrillation type: paroxysmal Qualified Code(s): I48.0 - Paroxysmal atrial fibrillation Is this a current diagnosis for this admission?: YesPlan: Currently in sinus. On metoprolol and aspirin. (4) CAD (coronary artery disease) Qualifiers: Coronary Disease-Associated Artery/Lesion type: [place] artery [place] vs. transplanted heart: [place] heart Associated angina: without angina Qualified Code(s): I25.10 - Atherosclerotic heart disease of [place] coronary artery without angina pectoris Is this a current diagnosis for this admission?: Yes (5) HLD (hyperlipidemia) Qualifiers: Hyperlipidemia type: unspecified Qualified Code(s): E78.5 - Hyperlipidemia, unspecified Is this a current diagnosis for this admission?: Yes (6) HTN (hypertension) Qualifiers: Hypertension type: essential hypertension Qualified Code(s): I10 - Essential (primary) hypertension Is this a current diagnosis for this admission?: Yes (7) History of MRSA infection of lungs Is this a current diagnosis for this admission?: Yes (8) Insomnia Qualifiers: Insomnia type: unspecified Qualified Code(s): G47.00 - Insomnia, unspecified Is this a current diagnosis for this admission?: Yes - Time Time Spent with patient: 25-34 minutes Medications reviewed and adjusted accordingly: Yes Anticipated discharge: Home Within: within 48 hours
[2017-02-10] MEDS: GABAPENTIN 300 MG CAPSULE PO SCH (06:10)
[2017-02-10] MEDS: LANSOPRAZOLE 30 MG TAB.RAP.DR PO SCH (06:10)
[2017-02-10] MEDS: IPRATROPIUM/ALBUTEROL 0.5-2.5 MG/3 ML AMPUL NEB SCH ×2 (08:53→14:02)
[2017-02-10] MEDS: ACETYLCYSTEINE 20% SOLN 800 MG/4 ML VIAL.NEB NEB SCH (08:54)
[2017-02-10] MEDS: ENOXAPARIN SODIUM INJ 40 MG/0.4 ML DISP.SYRIN SUBCUT SCH (11:02)
[2017-02-10] MEDS: FAMOTIDINE 20 MG TABLET PO SCH (11:07)
[2017-02-10] MEDS: METOPROLOL SUCCINATE 25 MG TAB.SR.24H PO SCH (11:07)
[2017-02-10] MEDS: TAMSULOSIN HCL 0.4 MG CAP.SR.24H PO SCH (11:07)
[2017-02-10] MEDS: DOCUSATE SODIUM 100 MG CAPSULE PO SCH (11:07)
[2017-02-10] MEDS: PREDNISONE 20 MG TABLET PO SCH (11:08)
[2017-02-10] MEDS: HYDROCODONE/ACETAMINOPHEN 7.5-325 MG TABLET PO PRN (11:09)
[2017-02-10] MEDS: LINEZOLID 600 MG TABLET PO SCH (11:10)
[2017-02-10] MEDS: FLUTICASONE NASAL SPRAY 50 MCG/SPRY 120 SPRAY/16 GM NASL SCH (11:11)
[2017-02-10] MEDS: FLUTICASONE/SALMETEROL DISKUS 250-50 MCG/DOSE IH SCH (11:11)
[2017-02-10] MEDS: GUAIFENESIN 600 MG TABLET.SA PO SCH (11:12)
[2017-02-10 14:16] VITALS: BP 102/69
--- NOTE | 2017-02-11 18:15 | PDOC DISCHARGE SUMMARY ---
General - Admit/Disc Date/PCP Admission Date/Primary Care Provider: 02/05/17 01:17 LILIANE VANEGAS NP Discharge Date: 02/10/17 - Discharge Diagnosis (1) Acute on chronic respiratory failure with hypoxemia Is this a current diagnosis for this admission?: Yes (2) COPD with acute exacerbation Is this a current diagnosis for this admission?: Yes (3) Atrial fibrillation Is this a current diagnosis for this admission?: Yes (4) CAD (coronary artery disease) Is this a current diagnosis for this admission?: Yes (5) HLD (hyperlipidemia) Is this a current diagnosis for this admission?: Yes (6) HTN (hypertension) Is this a current diagnosis for this admission?: Yes (7) Insomnia Is this a current diagnosis for this admission?: Yes (8) MRSA pneumonia Is this a current diagnosis for this admission?: Yes - Additional Information Resuscitation Status: Full Code Discharge Diet: Cardiac Discharge Activity: Activity As Tolerated, Walk Frequently Home Medications: Aspirin [Aspirin 325 mg Tablet] 325 mg PO DAILY 02/05/17 Atorvastatin Calcium [Lipitor 80 mg Tablet] 80 mg PO QHS 02/05/17 Gabapentin [Neurontin] 600 mg PO TID 02/05/17 Hydrocodone/Acetaminophen [[place] 7.5-325 Tablet] 1 tab PO TIDP PRN 02/05/17 Ipratropium/Albuterol Sulfate [Duoneb 3 ml Ampul] 3 ml NEB RTQ6 02/05/17 Metoprolol Succinate [Toprol Xl 25 mg Tab.sr] 25 mg PO DAILY 02/05/17 Ranitidine HCl [Zantac 150 mg Tablet] 150 mg PO BID 02/05/17 Tamsulosin HCl [Flomax] 0.4 mg PO BID 02/05/17 Albuterol Sulfate [Ventolin 0.083% Neb 2.5 mg/3 ml Ampul] 2.5 mg NEB Q6HP PRN # 1 packet 02/10/17 Fluticasone Propionate [Flonase Nasal [place] 50 Mcg/[place] 16 gm] 1 spray NASL Q12 #1 spray.pump 02/10/17 Fluticasone/Salmeterol [Advair 250-50 Diskus 28 dose] 1 inh IH Q12H #1 inhaler 02/10/17 Linezolid [Zyvox 600 mg Tablet] 600 mg PO Q12 #28 tablet 02/10/17 Montelukast Sodium [Singulair 10 mg Tablet] 10 mg PO QHS #30 tablet 02/10/17 Prednisone [Deltasone 20 mg Tablet] 40 mg PO BID #21 tablet 02/10/17 History of Present Illness History of Present Illness: Please see H&P for full history of present illness Hospital Course Hospital Course: Patient was admitted per standard pneumonia protocol, but upon review of his previous microbiology was discovered that he had MRSA pneumonia as well as pseudomonal pneumonia. Patient was started empirically on linezolid in addition to his cefepime. Patient continued on scheduled because treatments and quickly improved. Patient was found to have MRSA in his sputum. His steroids were quickly tapered from IV to by mouth. Patient did suffer from some insomnia which was improved with trazodone, but declined an outpatient prescription for this medication. He was ambulating in the halls with oxygen. Patient has home oxygen, but reports intermittent usage. He has been encouraged to be compliant with this. Patient was doing well on day of discharge without complaint. Physical Exam Vital Signs: Temp Pulse Resp BP Pulse Ox 98.5 F 64 16 102/69 97 02/10/17 14:12 02/10/17 14:12 02/10/17 14:12 02/10/17 14:12 02/10/17 14:12 Intake & Output 02/10/17 02/11/17 02/12/17 06:59 06:59 06:59 Intake Total 1200 Balance 1200 Weight 64.9 kg Exam: General: Awake alert and oriented x3, no acute respiratory distress HEENT: AT/NC, PERRL, EOMI, oropharynx is moist, pink, no scleral icterus, no conjunctival injection Neck: No JVD, trachea midline Chest: Clear to auscultation bilaterally CV: Regular rate and rhythm, normal S1 and S2, no rub or gallop Abdomen: Soft, nontender to palpation, nondistended, active bowel sounds; no rebound, rigidity, or guarding Extremities: No cyanosis, clubbing or edema Neuro: Cranial nerves II through XII are grossly intact without focal deficits; awake alert and oriented x3 Psych: Normal mood and affect Results Laboratory Results: 02/07/17 11:01 02/07/17 11:01 Impressions: Chest X-Ray 02/04/17 17:35 IMPRESSION: No significant interval change. Obstructive lung disease. No acute changes are identified. Qualifiers PATEINT BEING DISCHARGED WITH ANY OF THE FOLLOWING DIAGNOSIS?: No Plan Time Spent: Less than 30 Minutes
== END 2017-02-10 15:30 | disposition home or self-care (01) | DRG 190 ==
LOC: ER 16:53 → EH 22:47 → UNDOADMIN 22:47 → EH 02-05 01:17 → 5 02-05 02:31
PROVIDERS: ADMIT Family Medicine; ATTEND Family Medicine
DX: J44.0 Chronic obstructive pulmonary disease with (acute) lower respiratory infection (principal); J15.212 Pneumonia due to Methicillin resistant Staphylococcus aureus; J15.1 Pneumonia due to Pseudomonas; J96.21 Acute and chronic respiratory failure with hypoxia; J44.1 Chronic obstructive pulmonary disease with (acute) exacerbation; Z99.81 Dependence on supplemental oxygen; I48.0 Paroxysmal atrial fibrillation; I25.10 Atherosclerotic heart disease of native coronary artery without angina pectoris; M19.90 Unspecified osteoarthritis, unspecified site; G47.00 Insomnia, unspecified; I10 Essential (primary) hypertension; E78.5 Hyperlipidemia, unspecified; Z79.51 Long term (current) use of inhaled steroids; Z79.82 Long term (current) use of aspirin; Z95.1 Presence of aortocoronary bypass graft; Z95.0 Presence of cardiac pacemaker; Z79.899 Other long term (current) drug therapy; I25.2 Old myocardial infarction; Z87.891 Personal history of nicotine dependence; Z86.14 Personal history of Methicillin resistant Staphylococcus aureus infection; Z85.828 Personal history of other malignant neoplasm of skin; Z90.49 Acquired absence of other specified parts of digestive tract; Z80.8 Family history of malignant neoplasm of other organs or systems
CPT/HCPCS: 36415; 71010; 80048; 80053; 80162; 82550; 82553; 82962; 83735; 83880; 84484; 85025; 87040; 87070; 87077; 87186; 87205; 93005; 93010; 94640; 94799; 99285; J0456; J0692; J1650; J1815; J2920; J2930; J3490; J7060; J7512; J7620

== ENCOUNTER → 2017-07-13 | Outpatient (CLI) | payer MEDICARE, BC ==
--- NOTE | 2017-07-13 10:42 | RADIOLOGY REPORT (SQ) ---
EXAM DESCRIPTION: CHEST PA/LATERAL COMPLETED DATE/TIME: 07/13/2017 10:25 am REASON FOR STUDY: COUGH COMPARISON: Chest films 02/04/2017, 10/30/2016, 10/25/2016, 10/19/2016, 09/25/2010 since EXAM PARAMETERS: NUMBER OF VIEWS: two views TECHNIQUE: Digital Frontal and Lateral radiographic views of the chest acquired. RADIATION DOSE: NA LIMITATIONS: none FINDINGS: LUNGS AND PLEURA: Lungs are hyperlucent in the upper lobes from obstructive disease. There is patchy airspace disease just above the right hemidiaphragm, new compared to previous exams. No pleural effusions. No pneumothorax. No gross pulmonary nodules. MEDIASTINUM AND HILAR STRUCTURES: No masses or contour abnormalities. HEART AND VASCULAR STRUCTURES: No cardiomegaly. Old sternotomy for CABG. BONES: Osteopenic HARDWARE: Left-sided dual lead pacemaker. OTHER: No other significant finding. IMPRESSION: New airspace disease in the right lower lobe TECHNICAL DOCUMENTATION: JOB ID: [id number]- All Rights Reserved
[2017-07-13 11:38] LABS: ABSOLUTE EOSINOPHILS # (AUTO) 0.1 10^3/uL (0.0-0.6); ABSOLUTE LYMPHOCYTES (AUTO) 2.2 10^3/uL (0.5-4.7); ABSOLUTE MONOCYTES (AUTO) 1.3 10^3/uL (0.1-1.4); BASOPHILS % (AUTO) 0.4 % (0-2); EOSINOPHILS % (AUTO) 1.4 % (0-6); HEMATOCRIT 35.6 % (37.9-51.0); HGB HCT DIFFERENCE 0.4; LYMPHOCYTES % (AUTO) 20.3 % (13-45); MEAN CORPUSCULAR HEMOGLOBIN 29.5 pg (27.0-33.4); MEAN CORPUSCULAR HGB CONC 33.7 g/dL (32.0-36.0); MEAN CORPUSCULAR VOLUME 87 fl (80-97); MONOCYTES % (AUTO) 11.8 % (3-13); RED BLOOD COUNT 4.07 10^6/uL (4.35-5.55); RED CELL DISTRIBUTION WIDTH 14.8 % (11.5-14.0); SEGMENTED NEUTROPHILS % (AUTO) 66.1 % (42-78); WHITE BLOOD COUNT 10.6 10^3/uL (4.0-10.5)
== END ==
LOC: OD 09:59
PROVIDERS: ATTEND Internal Medicine Pulmonary Disease
DX: R05 Cough (principal)
CPT/HCPCS: 36415; 71020; 85025; 87070; 87077; 87186; 87205

== ENCOUNTER 2017-07-28 03:45 | Inpatient (IN) | payer MEDICARE, BC ==
[2017-07-28] MEDS ORDERED: ALBUTEROL SULFATE 0.083% NEB 2.5 MG/3 ML AMPUL NEB ONE (03:47)
--- NOTE | 2017-07-28 03:55 | ER Document Report ---
ED General - General Stated Complaint: DIFFICULTY BREATHING Time Seen by Provider: 07/28/17 03:46 Notes: Patient is an 81-year-old male who presents with complaint of difficulty breathing. He has had worsening difficulty breathing over the last week. He was recently placed on tobramycin inhaled nebulizer treatments. He says since starting those feels like his got worse. He does have history recurrent pneumonia. He says he was last admitted here in November for pneumonia. Denies any recent fevers. No vomiting. He quit smoking a month ago. Since denies spitting up much worse. He wears 1-1/2-2 L of oxygen at home. When paramedics arrived he was on his oxygen but still with setting the mid to low 80s. Paramedics gave him a total 4 g magnesium, 125 mg of Solu-Medrol, multiple breathing treatments, and place him on CPAP. He has had significant improvement with these interventions. Paramedics said when they first arrived he had poor air movement and diffuse wheezing. She denies any chest pain. He denies abdominal pain. She denies any recent leg pain or leg swelling. TRAVEL OUTSIDE OF THE [place] IN LAST 30 DAYS: No - Related Data Allergies/Adverse Reactions: No Known Allergies Allergy (Verified 10/30/16 06:40) Past Medical History - Social History Smoking Status: Former Smoker Frequency of alcohol use: None Drug Abuse: None Family History: Malignancy - Brain tumor - Past Medical History Cardiac Medical History: Reports: Hx Atrial Fibrillation - Aspirin only due to epistaxis with systemic anticoagulation., Hx Coronary Artery Disease, Hx Heart Attack - 08/2009, Hx Hypercholesterolemia, Hx Hypertension Denies: Hx DVT, Hx Pulmonary Embolism Pulmonary Medical History: Reports: Hx COPD, Hx Pneumonia Denies: Hx Asthma, Hx Sleep Apnea Neurological Medical History: Denies: Hx Cerebrovascular Accident, Hx Seizures Endocrine Medical History: Denies: Hx Diabetes Mellitus Type 1, Hx Diabetes Mellitus Type 2, Hx Hyperthyroidism, Hx Hypothyroidism Malignancy Medical History: Reports Hx Skin Cancer GI Medical History: Reports: Hx Gastroesophageal Reflux Disease. Denies: Hx Cirrhosis, Hx Hepatitis, Hx Hiatal Hernia, Hx Ulcer Musculoskeltal Medical History: Reports Hx Arthritis, Reports Hx Musculoskeletal Trauma Psychiatric Medical History: Denies: Hx Depression Infectious Medical History: Reports: Hx MRSA. Denies: Hx C-Diff, Hx Hepatitis Past Surgical History: Reports: Hx Appendectomy, Hx Coronary Artery Bypass Graft , Hx Open Heart Surgery, Hx Orthopedic Surgery - back surgery, Hx Pacemaker - Immunizations Immunizations up to date: Yes Hx Diphtheria, Pertussis, Tetanus Vaccination: Yes Review of Systems - Review of Systems Notes: My Normal Review Basic REVIEW OF SYSTEMS: CONSTITUTIONAL : Denies fever, chills, or sweats. Denies recent illness. EENT: Denies eye, ear, throat, or mouth pain or symptoms. Denies nasal or sinus congestion. CARDIOVASCULAR: Denies chest pain. RESPIRATORY: Difficulty breathing. Wheezing. GASTROINTESTINAL: Denies abdominal pain. Denies nausea, vomiting, or diarrhea. Denies constipation. Last BM: MUSCULOSKELETAL: Denies neck or back pain or joint pain or swelling. SKIN: Denies rash or skin lesions. NEUROLOGICAL: Denies altered mental status or loss of consciousness. Denies headache. Denies weakness or paralysis or loss of use of either side. Denies problems with gait or speech. Denies sensory or motor loss. ALL OTHER SYSTEMS REVIEWED AND NEGATIVE. Physical Exam - Vital signs Vitals: Pulse Ox 98 07/28/17 03:46 - Notes Notes: General Appearance: Well nourished, alert, cooperative, mild to moderate acute distress, speaking 3-4 words at a time. No obvious discomfort. Vitals: reviewed, See vital signs table. Head: no swelling or tenderness to the head Eyes: PERRL, EOMI, Conjuctiva clear Mouth: No decreasd moisture Throat: No tonsillar inflammation, No airway obstruction, No lymphadenopathy Neck: Supple, no neck tenderness Lungs: Diffuse wheezing, No rales, No rhonci, No accessory muscle use, good air exchange bilaterally. Heart: Normal rate, Regular rythm, No murmur, no rub Abdomen: Normal BS, soft, No rigidity, No abdominal tenderness, No guarding, no rebound, no abdominal masses, no organomegaly Extremities: strength 5/5 in all extremities, good pulses in all extremities, no swelling or tenderness in the extremities, no edema. Skin: warm, dry, appropriate color, no rash Neuro: speech clear, oriented x 3, normal affect, responds appropriately to questions. Course - Re-evaluation Re-evalutation: 07/28/17 04:59 Patient continues to improve. He still on the BiPAP. He was initially 93-92% on the BiPAP. I did increase his FiO2 some. He is now around 95-96%. His work of breathing has decreased significantly. He still has some tightness and wheezing but is also improving as well. I suspect that he will probably do well. His chest x-ray is read as possible developing pneumonia however he has this exact same findings on his previous old x-rays. Initially was in place him on linezolid due to his history of MRSA pneumonia but after comparing his current x-ray to his old x-rays, I will discontinue the antibiotic being that they look exactly like his previous x-rays. Also the patient has no fever and no leukocytosis. I have spoken with the hospitalist, Dr. Zapaat, who agrees to admit the patient. Dictation of this chart was performed using voice recognition software; therefore, there may be some unintended grammatical errors. - Vital Signs Vital signs: Temp Pulse Resp BP Pulse Ox 17 100/63 95 07/28/17 04:31 07/28/17 04:31 07/28/17 04:31 - Laboratory Result Diagrams: 07/28/17 03:55 07/28/17 03:55 Laboratory results interpreted by me: 07/28/17 07/28/17 03:55 03:55 RBC 3.87 L Hgb 11.6 L Hct 34.1 L RDW 15.1 H Eosinophils % 9.3 H Absolute Eosinophils 0.9 H Glucose 119 H Direct Bilirubin 0.5 H AST 75 H - EKG Interpretation by Me Additional EKG results interpreted by me: 07/28/17 03:55 EKG is reviewed and interpreted by me. EKG shows normal sinus rhythm with rate of [address] segment elevation or depression. No ischemic T-wave inversions. ID interval, QRS duration, QTc intervals are within normal range. Old EKG for comparison is from February 04, 2017. Discharge - Discharge Clinical Impression: COPD with acute exacerbation Condition: Stable Disposition: ADMITTED OBSERVATION Admitting Provider: Hospitalist Unit Admitted: Telemetry
[2017-07-28 04:09] LABS: ABSOLUTE BASOPHILS # (AUTO) 0.1 10^3/uL (0.0-0.2); ABSOLUTE EOSINOPHILS # (AUTO) 0.9 10^3/uL (0.0-0.6); ABSOLUTE LYMPHOCYTES (AUTO) 3.2 10^3/uL (0.5-4.7); ABSOLUTE MONOCYTES (AUTO) 0.9 10^3/uL (0.1-1.4); ABSOLUTE NEUT (AUTO) 4.6 10^3/uL (1.7-8.2); BASOPHILS % (AUTO) 0.7 % (0-2); EOSINOPHILS % (AUTO) 9.3 % (0-6); HEMATOCRIT 34.1 % (37.9-51.0); HEMOGLOBIN 11.6 g/dL (13.5-17.0); HGB HCT DIFFERENCE 0.7; LYMPHOCYTES % (AUTO) 32.8 % (13-45); MEAN CORPUSCULAR HEMOGLOBIN 29.9 pg (27.0-33.4); MEAN CORPUSCULAR HGB CONC 33.9 g/dL (32.0-36.0); MEAN CORPUSCULAR VOLUME 88 fl (80-97); MONOCYTES % (AUTO) 9.6 % (3-13); RED BLOOD COUNT 3.87 10^6/uL (4.35-5.55); RED CELL DISTRIBUTION WIDTH 15.1 % (11.5-14.0); SEGMENTED NEUTROPHILS % (AUTO) 47.6 % (42-78); WHITE BLOOD COUNT 9.6 10^3/uL (4.0-10.5)
[2017-07-28 04:20] LABS: VENOUS BLOOD BASE EXCESS 1.1 mmol/L; VENOUS BLOOD HCO3 28.1 mmol/L (20-32); VENOUS BLOOD PCO2 55.3 mmHg (35-63); VENOUS BLOOD PH 7.32 (7.30-7.42)
[2017-07-28 04:31] LABS: ALANINE AMINOTRANSFERASE 51 U/L (21-72); ALBUMIN 3.5 g/dL (3.5-5.0); ALKALINE PHOSPHATASE 121 U/L (38-126); ANION GAP 9 (5-19); ASPARTATE AMINO TRANSFERASE 75 U/L (17-59); BILIRUBIN,DIRECT 0.5 mg/dL (0.0-0.4); BILIRUBIN,TOTAL 0.7 mg/dL (0.2-1.3); BLOOD UREA NITROGEN 19 mg/dL (7-20); CALCIUM 9.3 mg/dL (8.4-10.2); CARBON DIOXIDE 27 mmol/L (22-30); CHLORIDE 106 mmol/L (98-107); CREATINE KINASE 56 U/L (55-170); CREATININE RESULT 1.07 mg/dL (0.52-1.25); GLUCOSE 119 mg/dL (75-110); SODIUM 142.4 mmol/L (137-145); TOTAL PROTEIN 6.7 g/dL (6.3-8.2)
--- NOTE | 2017-07-28 04:36 | RADIOLOGY REPORT (SQ) ---
EXAM DESCRIPTION: CHEST SINGLE VIEW COMPLETED DATE/TIME: 07/28/2017 4:17 am REASON FOR STUDY: respiratory distress COMPARISON: 07/13/2017. 02/04/2017. EXAM PARAMETERS: NUMBER OF VIEWS: One view. TECHNIQUE: Single frontal radiographic view of the chest acquired. RADIATION DOSE: NA LIMITATIONS: None. FINDINGS: LUNGS AND PLEURA: Small patchy airspace opacities of the right lung base, increased in deg ree of opacification. Moderate emphysematous hyperinflation. Mild interstitial markings. MEDIASTINUM AND HILAR STRUCTURES: No masses. Contour normal. HEART AND VASCULAR STRUCTURES: Heart normal in size. Normal vasculature. BONES: No acute findings. HARDWARE: Sternotomy. Left cardiac stimulation device and leads. OTHER: No other significant finding. IMPRESSION: Small right basilar pneumonia. Recommend CR surveillance in 7-12 weeks as clinically wa rranted. TECHNICAL DOCUMENTATION: JOB ID: [id number]
[2017-07-28 04:42] LABS: CREATINE KINASE MB 1.61 ng/mL (<4.55); TROPONIN I 0.014 ng/mL
[2017-07-28] MEDS ORDERED: LINEZOLID 300 ML IV ONE (04:51)
[2017-07-28] MEDS ORDERED: CEFTAZIDIME PENTAHYDRATE 2 GM in DEXTROSE 5%-WATER 100 ML IV SCH (05:15)
[2017-07-28] MEDS ORDERED: CEFTAZIDIME PENTAHYDRATE 2 GM in DEXTROSE 5%-WATER 100 ML IV ONE (05:30)
[2017-07-28] MEDS ORDERED: CEFTAZIDIME INJ 1 GM VIAL IV SCH (05:30)
[2017-07-28] MEDS ORDERED: FAMOTIDINE 20 MG TABLET PO SCH (06:00)
--- NOTE | 2017-07-28 06:28 | PDOC H&P ---
History of Present Illness Admission Date/PCP: MAVIS RED MD Patient complains of: Shortness of breath History of Present Illness: JEAN-PIERRE OLIVAREZ is a 81 year old male with a past medical history of coronary artery disease, permanent pacemaker, atrial fibrillation, oxygen dependent COPD , bronchiectasis and recurrent pneumonia whose sputum culture grew Pseudomonas 2 weeks ago and was subsequently placed on inhaled tobramycin. He has had significant worsening of the last 72 hours prompting a call to EMS finding him with oxygen saturations of 83% despite oxygen use. He received continuous albuterol nebulizer, magnesium sulfate with BiPAP support and he is referred to the hospitalist for admission. He denies chest pain nausea vomiting diaphoresis. Past Medical History Cardiac Medical History: Reports: Atrial Fibrillation - Aspirin only due to epistaxis with systemic anticoagulation., Coronary Artery Disease, Myocardial Infarction - 08/2009, Hyperlipidema, Hypertension Denies: DVT, Pulmonary Embolism Pulmonary Medical History: Reports: Chronic Obstructive Pulmonary Disease (COPD) , Pneumonia Denies: Asthma, Sleep Apnea Neurological Medical History: Denies: Seizures Endocrine Medical History: Denies: Diabetes Mellitus Type 1, Diabetes Mellitus Type 2, Hyperthyroidism, Hypothyroidism Malignancy Medical History: Reports: Skin Cancer GI Medical History: Reports: Gastroesophageal Reflux Disease Denies: Cirrhosis, Hepatitis, Hiatal Hernia Musculoskeltal Medical History: Reports: Arthritis Psychiatric Medical History: Denies: Depression Hematology: Denies: Anemia, Sickle Cell Disease Infectious Medical History: Reports: Methicillin-Resistant Staph Aureus Denies: Clostridium Difficile Past Surgical History Past Surgical History: Reports: Appendectomy, Coronary Artery Bypass Graft, Orthopedic Surgery - back surgery, Pacemaker Social History Smoking Status: Former Smoker Frequency of Alcohol Use: None Hx Recreational Drug Use: No Drugs: None Hx Prescription Drug Abuse: No - Advance Directive Resuscitation Status: Full Code Family History Family History: COPD, Malignancy - Brain tumor Parental Family History Reviewed: Yes Children Family History Reviewed: Yes Sibling(s) Family History Reviewed.: Yes Medication/Allergy Home Medications: Aspirin [Aspirin 325 mg Tablet] 325 mg PO DAILY 02/05/17 Atorvastatin Calcium [Lipitor 80 mg Tablet] 80 mg PO QHS 02/05/17 Gabapentin [Neurontin] 600 mg PO TID 02/05/17 Hydrocodone/Acetaminophen [[place] 7.5-325 Tablet] 1 tab PO TIDP PRN 02/05/17 Ipratropium/Albuterol Sulfate [Duoneb 3 ml Ampul] 3 ml NEB RTQ6 02/05/17 Metoprolol Succinate [Toprol Xl 25 mg Tab.sr] 25 mg PO DAILY 02/05/17 Ranitidine HCl [Zantac 150 mg Tablet] 150 mg PO BID 02/05/17 Tamsulosin HCl [Flomax] 0.4 mg PO BID 02/05/17 Albuterol Sulfate [Ventolin 0.083% Neb 2.5 mg/3 ml Ampul] 2.5 mg NEB Q6HP PRN # 1 packet 02/10/17 Fluticasone Propionate [Flonase Nasal [place] 50 Mcg/[place] 16 gm] 1 spray NASL Q12 #1 spray.pump 02/10/17 Fluticasone/Salmeterol [Advair 250-50 Diskus 28 dose] 1 inh IH Q12H #1 inhaler 02/10/17 Linezolid [Zyvox 600 mg Tablet] 600 mg PO Q12 #28 tablet 02/10/17 Montelukast Sodium [Singulair 10 mg Tablet] 10 mg PO QHS #30 tablet 02/10/17 Prednisone [Deltasone 20 mg Tablet] 40 mg PO BID #21 tablet 02/10/17 Allergies/Adverse Reactions: No Known Allergies Allergy (Verified 10/30/16 06:40) Review of Systems Constitutional: PRESENT: chills, fatigue. ABSENT: fever(s), headache(s), weight gain, weight loss Eyes: ABSENT: visual disturbances Ears: ABSENT: hearing changes Cardiovascular: ABSENT: chest pain, dyspnea on exertion, edema, orthropnea, palpitations Respiratory: PRESENT: cough, dyspnea, sputum. ABSENT: hemoptysis Gastrointestinal: ABSENT: abdominal pain, constipation, diarrhea, hematemesis, hematochezia, nausea, vomiting Genitourinary: ABSENT: dysuria, hematuria Musculoskeletal: ABSENT: joint swelling Integumentary: ABSENT: rash, wounds Neurological: ABSENT: abnormal gait, abnormal speech, confusion, dizziness, focal weakness, syncope Psychiatric: ABSENT: anxiety, depression, homidical ideation, suicidal ideation Endocrine: ABSENT: cold intolerance, heat intolerance, polydipsia, polyuria Hematologic/Lymphatic: ABSENT: easy bleeding, easy bruising Physical Exam Vital Signs: Temp Pulse Resp BP Pulse Ox 13 144/46 H 100 07/28/17 05:31 07/28/17 05:31 07/28/17 05:31 Intake & Output 07/26/17 07/27/17 07/28/17 11:59 11:59 11:59 Weight 63.503 kg General appearance: PRESENT: cooperative, mild distress, thin Head exam: PRESENT: atraumatic Eye exam: PRESENT: conjunctiva pink, EOMI, PERRLA. ABSENT: scleral icterus Ear exam: PRESENT: normal external ear exam Mouth exam: PRESENT: moist, tongue midline Neck exam: ABSENT: carotid bruit, JVD, lymphadenopathy, thyromegaly Respiratory exam: PRESENT: accessory muscle use, crackles, prolonged expiratory phas, retraction, rhonchi, symmetrical, tachypnea. ABSENT: stridor Cardiovascular exam: PRESENT: irregular rhythm, +S1, tachycardia Pulses: PRESENT: normal dorsalis pedis pul Vascular exam: PRESENT: normal capillary refill GI/Abdominal exam: PRESENT: normal bowel sounds, soft. ABSENT: distended, guarding, mass, organolmegaly, rebound, tenderness Rectal exam: PRESENT: deferred Extremities exam: PRESENT: full ROM. ABSENT: calf tenderness, clubbing, pedal edema Neurological exam: PRESENT: alert, awake, oriented to person, oriented to place , oriented to time, oriented to situation, CN II-XII grossly intact. ABSENT: motor sensory deficit Psychiatric exam: PRESENT: appropriate affect, normal mood. ABSENT: homicidal ideation, suicidal ideation Skin exam: PRESENT: dry, intact, warm. ABSENT: cyanosis, rash Results Laboratory Results: 07/28/17 03:55 07/28/17 03:55 07/28/17 07/28/17 07/28/17 03:55 03:55 03:55 WBC 9.6 RBC 3.87 L Hgb 11.6 L Hct 34.1 L MCV 88 MCH 29.9 MCHC 33.9 RDW 15.1 H Plt Count 311 Seg Neutrophils % 47.6 Lymphocytes % 32.8 Monocytes % 9.6 Eosinophils % 9.3 H Basophils % 0.7 Absolute Neutrophils 4.6 Absolute Lymphocytes 3.2 Absolute Monocytes 0.9 Absolute Eosinophils 0.9 H Absolute Basophils 0.1 VBG pH 7.32 VBG pCO2 55.3 VBG HCO3 28.1 VBG Base Excess 1.1 Sodium 142.4 Potassium 4.0 Chloride 106 Carbon Dioxide 27 Anion Gap 9 BUN 19 Creatinine 1.07 Est GFR ( Amer) > 60 Est GFR (Non-Af Amer) > 60 Glucose 119 H Calcium 9.3 Total Bilirubin 0.7 AST 75 H ALT 51 Alkaline Phosphatase 121 Total Protein 6.7 Albumin 3.5 07/28/17 07/28/17 03:55 03:55 Creatine Kinase 56 CK-MB (CK-2) 1.61 Troponin I 0.014 Impressions: Chest X-Ray 07/28/17 03:47 IMPRESSION: Small right basilar pneumonia. Recommend CR surveillance in 7-12 weeks as clinically warranted. Assessment & Plan - Diagnosis (1) Pseudomonas pneumonia Is this a current diagnosis for this admission?: Yes Plan: Complicated by bronchiectasis he is admitted to the telemetry floor with a pneumonia care set, microbiology sensitivity to ceftazidime is less than 1. He is started on ceftazidime and tobramycin inhaled. His CBC results in significant eosinophilia and started on prednisone. BiPAP, flutter valve and incentive spirometry ordered will consult ambulatory care nurse Dr. Red if not significantly improved. (2) Acute on chronic respiratory failure with hypoxemia Is this a current diagnosis for this admission?: Yes Plan: Please see #1 (3) Atrial fibrillation Qualifiers: Atrial fibrillation type: paroxysmal Qualified Code(s): I48.0 - Paroxysmal atrial fibrillation Is this a current diagnosis for this admission?: Yes Plan: Rate controlled continue Lopressor. - Time Time Spent: 50 to 70 Minutes - Inpatient Certification Medical Necessity: Need Close Monitoring Due to Risk of Patient Decompensation
[2017-07-28] MEDS: GABAPENTIN 300 MG CAPSULE PO SCH ×3 (07:02→21:15)
[2017-07-28] MEDS: HEPARIN SOD (PORCINE) 5,000 UNIT/ML 1 ML SYRINGE SUBCUT SCH ×3 (07:05→21:22)
[2017-07-28] MEDS: IPRATROPIUM/ALBUTEROL 0.5-2.5 MG/3 ML AMPUL NEB SCH ×3 (07:53→19:46)
[2017-07-28] MEDS ORDERED: LACTULOSE SYRUP 20 GM/30 ML UDCUP PO ONE ×2 (08:00→09:30)
[2017-07-28] MEDS: METOPROLOL SUCCINATE 25 MG TAB.SR.24H PO SCH (09:12)
[2017-07-28] MEDS: TAMSULOSIN HCL 0.4 MG CAP.SR.24H PO SCH ×2 (09:12→16:36)
[2017-07-28] MEDS: ASPIRIN 325 MG TABLET PO SCH (09:13)
[2017-07-28] MEDS: FLUTICASONE NASAL SPRAY 50 MCG/SPRY 120 SPRAY/16 GM NASL SCH ×2 (09:13→21:17)
[2017-07-28] MEDS: FLUTICASONE/SALMETEROL DISKUS 250-50 MCG/DOSE IH SCH ×2 (09:18→21:17)
[2017-07-28] MEDS ORDERED: PREDNISONE 20 MG TABLET PO SCH ×2 (10:00)
[2017-07-28] MEDS ORDERED: POLYETHYLENE GLYCOL 3350 POWDER 17 GM/1 PACKET PO PRN (10:14)
[2017-07-28] MEDS ORDERED: DIGOXIN 0.125 MG TABLET PO ONE (10:30)
--- NOTE | 2017-07-28 11:52 | EKG REPORT ---
SEVERITY:- ABNORMAL ECG - SINUS RHYTHM LAD, CONSIDER LEFT ANTERIOR FASCICULAR BLOCK BORDERLINE T ABNORMALITIES, ANT-LAT LEADS : Confirmed by: Martha Mccall 28-Jul-2017 11:51:13
[2017-07-28] MEDS ORDERED: ERGOCALCIFEROL (VITAMIN D2) 50000 UNIT (1.25 MG) CAPSULE PO ONE (12:00)
--- NOTE | 2017-07-28 13:57 | PDOC PROGRESS REPORT ---
Subjective Progress Note for:: 07/28/17 Subjective:: Patient was seen on morning rounds. He is resting comfortably on nasal cannula in bed. Continues to have diffuse wheezing bilaterally. His cough is nonproductive. He denies any chest pain, dizziness or dyspnea at the present time. He denies any fevers or chills. He states his breathing is much improved since admission. He denies any nausea, vomiting or abdominal pain. He denies any arthralgias or myalgias. Remaining review of systems is negative. Physical Exam Vital Signs: Temp Pulse Resp BP Pulse Ox 97.6 F 87 33 H 134/65 H 97 07/28/17 06:06 07/28/17 12:50 07/28/17 12:50 07/28/17 06:06 07/28/17 12:50 Intake & Output 07/27/17 07/28/17 07/29/17 06:59 06:59 06:59 Intake Total 0 Balance 0 Weight 59.6 kg General appearance: PRESENT: no acute distress, thin, well-developed Head exam: PRESENT: atraumatic, normocephalic Eye exam: PRESENT: conjunctiva pink, EOMI, PERRLA. ABSENT: scleral icterus Ear exam: PRESENT: normal external ear exam Mouth exam: PRESENT: moist, tongue midline Neck exam: ABSENT: carotid bruit, JVD, lymphadenopathy, thyromegaly Respiratory exam: PRESENT: symmetrical, unlabored, wheezes - bilateral expiratory wheezning Cardiovascular exam: PRESENT: RRR. ABSENT: diastolic murmur, rubs, systolic murmur Pulses: PRESENT: normal dorsalis pedis pul Vascular exam: PRESENT: normal capillary refill GI/Abdominal exam: PRESENT: normal bowel sounds, soft. ABSENT: distended, guarding, mass, organolmegaly, rebound, tenderness Rectal exam: PRESENT: deferred Musculoskeletal exam: PRESENT: ambulatory, full ROM Neurological exam: PRESENT: alert, awake, oriented to person, oriented to place , oriented to time, oriented to situation, CN II-XII grossly intact. ABSENT: motor sensory deficit Skin exam: PRESENT: dry, intact, warm. ABSENT: cyanosis, rash Results Impressions: Chest X-Ray 07/28/17 03:47 IMPRESSION: Small right basilar pneumonia. Recommend CR surveillance in 7-12 weeks as clinically warranted. Assessment & Plan - Diagnosis (1) Acute on chronic respiratory failure with hypoxemia Is this a current diagnosis for this admission?: Yes Plan: Patient required BIPAP therapy initially secondary to hypoxemia on 3l/min via nc. He is improved off bipap at the present,. He was being treated with oral Levaquin and inhaled tobramycin. He is presently on IV cefepime and tobramycin nebulizers. Added IV Solu-Medrol to his regimen as well. We will continue Spiriva Advair and DuoNeb therapy. (2) COPD with acute exacerbation Is this a current diagnosis for this admission?: Yes Plan: As above (3) Pseudomonas pneumonia Qualifiers: Laterality: right Lung location: lower lobe of lung Qualified Code(s): J15.1 - Pneumonia due to Pseudomonas Is this a current diagnosis for this admission?: Yes Plan: Cefepime and Tobramycin nebulizers (4) Atrial fibrillation Qualifiers: Atrial fibrillation type: paroxysmal Qualified Code(s): I48.0 - Paroxysmal atrial fibrillation Is this a current diagnosis for this admission?: Yes Plan: Currently normal sinus rhythm (5) CAD (coronary artery disease) Qualifiers: Coronary Disease-Associated Artery/Lesion type: [place] artery [place] vs. transplanted heart: [place] heart Associated angina: without angina Qualified Code(s): I25.10 - Atherosclerotic heart disease of [place] coronary artery without angina pectoris Is this a current diagnosis for this admission?: Yes (6) HLD (hyperlipidemia) Qualifiers: Hyperlipidemia type: unspecified Qualified Code(s): E78.5 - Hyperlipidemia , unspecified Is this a current diagnosis for this admission?: Yes Plan: Continue statin (7) HTN (hypertension) Qualifiers: Hypertension type: essential hypertension Qualified Code(s): I10 - Essential (primary) hypertension Is this a current diagnosis for this admission?: Yes Plan: Continue current antihypertensives,he is normotensive - Time Time Spent with patient: 25-34 minutes Medications reviewed and adjusted accordingly: Yes Anticipated discharge: Home with Homehealth - Inpatient Certification Based on my medical assessment, after consideration of the patient's comorbidities, presenting symptoms, or acuity I expect that the services needed warrant INPATIENT care.: Yes I certify that my determination is in accordance with my understanding of Medicare's requirements for reasonable and necessary INPATIENT services [42 CFR 412.3e].: Yes
[2017-07-28] MEDS: METHYLPREDNISOLONE INJ 40 MG/1 ML SDV IV SCH ×2 (15:53→21:15)
[2017-07-28] MEDS: TIOTROPIUM BROMIDE DPI 5 CAP/KIT (18 MCG/CAP) IH SCH (15:54)
[2017-07-28] MEDS ORDERED: (PENDING PHARMACY ID) (Ranitidine Hcl [Zantac 150 Mg Tablet] 150 MG) PO SCH (16:00)
[2017-07-28] MEDS: HYDROCODONE/ACETAMINOPHEN 7.5-325 MG TABLET PO PRN (16:35)
[2017-07-28] MEDS: FAMOTIDINE 20 MG TABLET PO SCH (16:35)
[2017-07-28] MEDS: CEFTAZIDIME PENTAHYDRATE 2 GM in DEXTROSE 5%-WATER 100 ML IV SCH (18:30)
[2017-07-28] MEDS: TOBRAMYCIN SULFATE NEB 40 MG/ML 30 ML NEB SCH (19:46)
[2017-07-28] MEDS ORDERED: NACL IH SCH (20:00)
[2017-07-28] MEDS ORDERED: [UNRECOGNIZED DRUG - OTHER] IH SCH (20:00)
[2017-07-28] MEDS ORDERED: TOBRAMYCIN IH SCH (20:00)
[2017-07-28] MEDS: ATORVASTATIN CALCIUM 80 MG TABLET PO SCH (21:15)
[2017-07-28] MEDS: MONTELUKAST SODIUM 10 MG TABLET PO SCH (21:16)
[2017-07-29] MEDS: IPRATROPIUM/ALBUTEROL 0.5-2.5 MG/3 ML AMPUL NEB SCH ×4 (02:06→19:47)
[2017-07-29] MEDS: METHYLPREDNISOLONE INJ 40 MG/1 ML SDV IV SCH ×3 (05:24→21:14)
[2017-07-29] MEDS: GABAPENTIN 300 MG CAPSULE PO SCH ×3 (05:24→21:13)
[2017-07-29] MEDS: CEFTAZIDIME PENTAHYDRATE 2 GM in DEXTROSE 5%-WATER 100 ML IV SCH ×2 (05:25→17:49)
[2017-07-29] MEDS: HEPARIN SOD (PORCINE) 5,000 UNIT/ML 1 ML SYRINGE SUBCUT SCH ×3 (05:29→21:13)
[2017-07-29 07:00] LABS: ABSOLUTE LYMPHOCYTES (AUTO) 1.1 10^3/uL (0.5-4.7); ABSOLUTE MONOCYTES (AUTO) 0.3 10^3/uL (0.1-1.4); BASOPHILS % (AUTO) 0.5 % (0-2); HEMATOCRIT 33.6 % (37.9-51.0); HEMOGLOBIN 11.3 g/dL (13.5-17.0); HGB HCT DIFFERENCE 0.3; LYMPHOCYTES % (AUTO) 14.4 % (13-45); MEAN CORPUSCULAR HEMOGLOBIN 29.2 pg (27.0-33.4); MEAN CORPUSCULAR HGB CONC 33.8 g/dL (32.0-36.0); MEAN CORPUSCULAR VOLUME 87 fl (80-97); MONOCYTES % (AUTO) 4.3 % (3-13); RED BLOOD COUNT 3.88 10^6/uL (4.35-5.55); SEGMENTED NEUTROPHILS % (AUTO) 80.8 % (42-78); WHITE BLOOD COUNT 7.4 10^3/uL (4.0-10.5)
[2017-07-29 07:15] LABS: ANION GAP 9 (5-19); BLOOD UREA NITROGEN 24 mg/dL (7-20); CALCIUM 9.5 mg/dL (8.4-10.2); CARBON DIOXIDE 28 mmol/L (22-30); CHLORIDE 103 mmol/L (98-107); CREATININE RESULT 0.87 mg/dL (0.52-1.25); GLUCOSE 132 mg/dL (75-110); POTASSIUM 4.6 mmol/L (3.6-5.0)
[2017-07-29] MEDS: TOBRAMYCIN SULFATE NEB 40 MG/ML 30 ML NEB SCH (08:01)
[2017-07-29] MEDS ORDERED: BISACODYL 10 MG SUPP.RECT PR PRN (10:41)
[2017-07-29] MEDS: ASPIRIN 325 MG TABLET PO SCH (11:22)
[2017-07-29] MEDS: FAMOTIDINE 20 MG TABLET PO SCH ×2 (11:22→17:49)
[2017-07-29] MEDS: TAMSULOSIN HCL 0.4 MG CAP.SR.24H PO SCH ×2 (11:24→17:49)
[2017-07-29] MEDS: METOPROLOL SUCCINATE 25 MG TAB.SR.24H PO SCH (11:24)
[2017-07-29] MEDS: DIGOXIN 0.125 MG TABLET PO SCH (11:24)
[2017-07-29] MEDS: FLUTICASONE/SALMETEROL DISKUS 250-50 MCG/DOSE IH SCH ×2 (11:25→21:15)
[2017-07-29] MEDS: FLUTICASONE NASAL SPRAY 50 MCG/SPRY 120 SPRAY/16 GM NASL SCH ×2 (11:25→21:15)
[2017-07-29] MEDS: TIOTROPIUM BROMIDE DPI 5 CAP/KIT (18 MCG/CAP) IH SCH (11:25)
--- NOTE | 2017-07-29 12:24 | PDOC PROGRESS REPORT ---
Subjective Progress Note for:: 07/29/17 Subjective:: Patient was seen on morning rounds. He is resting comfortably on nasal cannula in bed. His wheezing is improved from yesterday. His cough is productive. He denies any chest pain, dizziness or dyspnea at the present time. He denies any fevers or chills. He states his breathing is much improved since admission. He denies any nausea, vomiting or abdominal pain. He has problems with constipation. He reports his bowels finally moved this morning. He denies any arthralgias or myalgias. Remaining review of systems is negative. Physical Exam Vital Signs: Temp Pulse Resp BP Pulse Ox 97.5 F 53 L 18 117/67 92 07/29/17 11:35 07/29/17 11:35 07/29/17 11:35 07/29/17 11:35 07/29/17 11:35 Intake & Output 07/28/17 07/29/17 07/30/17 06:59 06:59 06:59 Intake Total 0 1120 Output Total 475 Balance 0 645 Weight 59.6 kg 59.6 kg General appearance: PRESENT: no acute distress, well-developed, well-nourished Head exam: PRESENT: atraumatic, normocephalic Eye exam: PRESENT: conjunctiva pink, EOMI, PERRLA. ABSENT: scleral icterus Ear exam: PRESENT: normal external ear exam Mouth exam: PRESENT: moist, tongue midline Neck exam: ABSENT: carotid bruit, JVD, lymphadenopathy, thyromegaly Respiratory exam: PRESENT: accessory muscle use, rhonchi, symmetrical, unlabored , wheezes. ABSENT: rales Cardiovascular exam: PRESENT: RRR. ABSENT: diastolic murmur, rubs, systolic murmur Pulses: PRESENT: normal dorsalis pedis pul Vascular exam: PRESENT: normal capillary refill GI/Abdominal exam: PRESENT: normal bowel sounds, soft. ABSENT: distended, guarding, mass, organolmegaly, rebound, tenderness Rectal exam: PRESENT: deferred Extremities exam: PRESENT: full ROM. ABSENT: calf tenderness, clubbing, pedal edema Neurological exam: PRESENT: alert, awake, oriented to person, oriented to place , oriented to time, oriented to situation, CN II-XII grossly intact. ABSENT: motor sensory deficit Psychiatric exam: PRESENT: appropriate affect, normal mood. ABSENT: homicidal ideation, suicidal ideation Skin exam: PRESENT: dry, intact, warm. ABSENT: cyanosis, rash Results Laboratory Results: 07/29/17 06:47 07/29/17 06:47 07/29/17 07/29/17 06:47 06:47 WBC 7.4 RBC 3.88 L Hgb 11.3 L Hct 33.6 L MCV 87 MCH 29.2 MCHC 33.8 RDW 15.0 H Plt Count 279 Seg Neutrophils % 80.8 H Lymphocytes % 14.4 Monocytes % 4.3 Eosinophils % 0.0 Basophils % 0.5 Absolute Neutrophils 6.0 Absolute Lymphocytes 1.1 Absolute Monocytes 0.3 Absolute Eosinophils 0.0 Absolute Basophils 0.0 Sodium 140.0 Potassium 4.6 Chloride 103 Carbon Dioxide 28 Anion Gap 9 BUN 24 H Creatinine 0.87 Est GFR ( Amer) > 60 Est GFR (Non-Af Amer) > 60 Glucose 132 H Calcium 9.5 07/28/17 06:30 Nasophary ([facility] Only) MRSA Surveillance Culture - Final NO MRSA RECOVERED Impressions: Chest X-Ray 07/28/17 03:47 IMPRESSION: Small right basilar pneumonia. Recommend CR surveillance in 7-12 weeks as clinically warranted. Assessment & Plan - Diagnosis (1) Acute on chronic respiratory failure with hypoxemia Is this a current diagnosis for this admission?: Yes Plan: Patient required BIPAP therapy initially secondary to hypoxemia on 3l/min via nc. He is improved off bipap at the present,. He was being treated with oral Levaquin and inhaled tobramycin. He is presently on IV cefepime and tobramycin nebulizers. Added IV Solu-Medrol to his regimen as well. We will continue Spiriva Advair and DuoNeb therapy. (2) COPD with acute exacerbation Is this a current diagnosis for this admission?: Yes Plan: As above (3) Pseudomonas pneumonia Qualifiers: Laterality: right Lung location: lower lobe of lung Qualified Code(s): J15.1 - Pneumonia due to Pseudomonas Is this a current diagnosis for this admission?: Yes Plan: Cefepime and Tobramycin nebulizers (4) Atrial fibrillation Qualifiers: Atrial fibrillation type: paroxysmal Qualified Code(s): I48.0 - Paroxysmal atrial fibrillation Is this a current diagnosis for this admission?: Yes Plan: Currently normal sinus rhythm (5) CAD (coronary artery disease) Qualifiers: Coronary Disease-Associated Artery/Lesion type: [place] artery [place] vs. transplanted heart: [place] heart Associated angina: without angina Qualified Code(s): I25.10 - Atherosclerotic heart disease of [place] coronary artery without angina pectoris Is this a current diagnosis for this admission?: Yes (6) HLD (hyperlipidemia) Qualifiers: Hyperlipidemia type: unspecified Qualified Code(s): E78.5 - Hyperlipidemia , unspecified Is this a current diagnosis for this admission?: Yes Plan: Continue statin (7) HTN (hypertension) Qualifiers: Hypertension type: essential hypertension Qualified Code(s): I10 - Essential (primary) hypertension Is this a current diagnosis for this admission?: Yes Plan: Continue current antihypertensives,he is normotensive - Time Time Spent with patient: 25-34 minutes Critical Time spent with patient: 25-34 minutes Medications reviewed and adjusted accordingly: Yes Anticipated discharge: Home with Homehealth
[2017-07-29] MEDS: ATORVASTATIN CALCIUM 80 MG TABLET PO SCH (21:14)
[2017-07-29] MEDS: MONTELUKAST SODIUM 10 MG TABLET PO SCH (21:14)
[2017-07-29] MEDS: HYDROCODONE/ACETAMINOPHEN 7.5-325 MG TABLET PO PRN (21:32)
[2017-07-30] MEDS: IPRATROPIUM/ALBUTEROL 0.5-2.5 MG/3 ML AMPUL NEB SCH ×4 (02:01→20:04)
[2017-07-30 02:18] LABS: ALANINE AMINOTRANSFERASE 40 U/L (21-72); ALBUMIN 3.4 g/dL (3.5-5.0); ALKALINE PHOSPHATASE 85 U/L (38-126); ANION GAP 8 (5-19); ASPARTATE AMINO TRANSFERASE 30 U/L (17-59); BILIRUBIN,DIRECT 0.4 mg/dL (0.0-0.4); BILIRUBIN,TOTAL 0.5 mg/dL (0.2-1.3); BLOOD UREA NITROGEN 29 mg/dL (7-20); CALCIUM 9.4 mg/dL (8.4-10.2); CARBON DIOXIDE 29 mmol/L (22-30); CHLORIDE 102 mmol/L (98-107); CREATININE RESULT 0.92 mg/dL (0.52-1.25); GLUCOSE 180 mg/dL (75-110); MAGNESIUM 2.3 mg/dL (1.6-2.3); POTASSIUM 5.1 mmol/L (3.6-5.0); SODIUM 138.8 mmol/L (137-145); TOTAL PROTEIN 6.5 g/dL (6.3-8.2)
[2017-07-30] MEDS ORDERED: CALCIUM GLUCONATE 1000 MG/10 ML INJ IV ONE ×2 (02:28→03:00)
[2017-07-30] MEDS ORDERED: FUROSEMIDE INJ/PF 20 MG/2 ML SDV ONE (02:28)
[2017-07-30] MEDS ORDERED: FUROSEMIDE INJ/PF 20 MG/2 ML SDV IV ONE (03:00)
[2017-07-30] MEDS ORDERED: CALCIUM GLUCONATE 1,000 MG in DEXTROSE 5%-WATER 50 ML IV ONE (03:00)
[2017-07-30] MEDS: HEPARIN SOD (PORCINE) 5,000 UNIT/ML 1 ML SYRINGE SUBCUT SCH ×3 (04:58→21:17)
[2017-07-30] MEDS: GABAPENTIN 300 MG CAPSULE PO SCH ×3 (04:58→21:20)
[2017-07-30] MEDS: CEFTAZIDIME PENTAHYDRATE 2 GM in DEXTROSE 5%-WATER 100 ML IV SCH ×2 (04:59→17:07)
[2017-07-30] MEDS: METHYLPREDNISOLONE INJ 40 MG/1 ML SDV IV SCH ×3 (04:59→21:20)
--- NOTE | 2017-07-30 09:54 | PDOC PROGRESS REPORT ---
Subjective Progress Note for:: 07/30/17 Subjective:: The patient is an 81-year-old male with underlying COPD (presumed severe) who presents with an exacerbation of COPD, acute on chronic hypoxic respiratory failure. The patient also has underlying bronchiectasis. The patient had a sputum culture that grew Pseudomonas approximately 2 weeks ago. The patient reported to me this morning that he felt that the tobramycin nebulizer treatment triggered his current admission, but, he is still receiving the tobramycin here. The patient is bringing up very little sputum. He denies hemoptysis. He states that his breathing is still very bad and he is not yet nearing his baseline. He is on and off BiPAP for rest. The patient told me this morning that he would not wish to be intubated or placed on mechanical ventilation. Physical Exam Vital Signs: Temp Pulse Resp BP Pulse Ox 98.6 F 49 L 18 130/60 H 95 07/30/17 07:41 07/30/17 07:41 07/30/17 07:41 07/30/17 07:41 07/30/17 07:41 Intake & Output 07/29/17 07/30/17 07/31/17 06:59 06:59 06:59 Intake Total 1120 1030 Output Total 475 Balance 645 1030 Weight 59.6 kg 59.6 kg General appearance: PRESENT: mild distress, other - He appears elderly and frail. He is thin but not cachectic. In general, he appears to be in poor health. Head exam: PRESENT: atraumatic Eye exam: PRESENT: EOMI Mouth exam: PRESENT: neck supple Respiratory exam: PRESENT: rhonchi, wheezes Cardiovascular exam: PRESENT: RRR GI/Abdominal exam: PRESENT: normal bowel sounds, soft Extremities exam: PRESENT: full ROM Musculoskeletal exam: PRESENT: full ROM Neurological exam: PRESENT: alert, awake Psychiatric exam: PRESENT: appropriate affect Results Laboratory Results: 07/29/17 06:47 07/30/17 01:48 07/30/17 01:48 Sodium 138.8 Potassium 5.1 H Chloride 102 Carbon Dioxide 29 Anion Gap 8 BUN 29 H Creatinine 0.92 Est GFR ( Amer) > 60 Est GFR (Non-Af Amer) > 60 Glucose 180 H Calcium 9.4 Magnesium 2.3 Total Bilirubin 0.5 AST 30 ALT 40 Alkaline Phosphatase 85 Total Protein 6.5 Albumin 3.4 L 07/28/17 06:30 Nasophary ([facility] Only) MRSA Surveillance Culture - Final NO MRSA RECOVERED Impressions: Chest X-Ray 07/28/17 03:47 IMPRESSION: Small right basilar pneumonia. Recommend CR surveillance in 7-12 weeks as clinically warranted.
--- NOTE | 2017-07-30 10:02 | PDOC PROGRESS REPORT ---
Subjective Progress Note for:: 07/30/17 Subjective:: See additional progress note from today. Physical Exam Vital Signs: Temp Pulse Resp BP Pulse Ox 98.6 F 49 L 18 130/60 H 95 07/30/17 07:41 07/30/17 07:41 07/30/17 07:41 07/30/17 07:41 07/30/17 07:41 Intake & Output 07/29/17 07/30/17 07/31/17 06:59 06:59 06:59 Intake Total 1120 1030 Output Total 475 Balance 645 1030 Weight 59.6 kg 59.6 kg Results Laboratory Results: 07/29/17 06:47 07/30/17 01:48 07/30/17 01:48 Sodium 138.8 Potassium 5.1 H Chloride 102 Carbon Dioxide 29 Anion Gap 8 BUN 29 H Creatinine 0.92 Est GFR ( Amer) > 60 Est GFR (Non-Af Amer) > 60 Glucose 180 H Calcium 9.4 Magnesium 2.3 Total Bilirubin 0.5 AST 30 ALT 40 Alkaline Phosphatase 85 Total Protein 6.5 Albumin 3.4 L 07/28/17 06:30 Nasophary ([facility] Only) MRSA Surveillance Culture - Final NO MRSA RECOVERED Impressions: Chest X-Ray 07/28/17 03:47 IMPRESSION: Small right basilar pneumonia. Recommend CR surveillance in 7-12 weeks as clinically warranted. Assessment & Plan - Diagnosis (1) Hyperkalemia Plan: The patient has a very mild elevation of potassium today at 5.1. He is not receiving supplemental potassium. This was confirmed with nursing staff. Will repeat labs in the morning. (2) COPD with acute exacerbation Is this a current diagnosis for this admission?: Yes Plan: Continue corticosteroids, antibiotics and nebulizer treatments. (3) Pseudomonas pneumonia Qualifiers: Laterality: right Lung location: lower lobe of lung Qualified Code(s): J15.1 - Pneumonia due to Pseudomonas Is this a current diagnosis for this admission?: Yes Plan: Continue dual antibiotic coverage. Patient does not appear to be having a reaction to the inhaled tobramycin as he suggested this morning. (4) Acute on chronic respiratory failure with hypoxemia Is this a current diagnosis for this admission?: Yes Plan: Continue supplemental oxygen and BiPAP as needed. The patient does not want intubation. (5) Insomnia Qualifiers: Insomnia type: unspecified Qualified Code(s): G47.00 - Insomnia, unspecified Plan: Patient does not complain of insomnia this morning. (6) Atrial fibrillation Qualifiers: Atrial fibrillation type: paroxysmal Qualified Code(s): I48.0 - Paroxysmal atrial fibrillation Is this a current diagnosis for this admission?: Yes Plan: Currently, patient is in sinus rhythm. (7) CAD (coronary artery disease) Qualifiers: Coronary Disease-Associated Artery/Lesion type: [place] artery [place] vs. transplanted heart: [place] heart Associated angina: without angina Qualified Code(s): I25.10 - Atherosclerotic heart disease of [place] coronary artery without angina pectoris Is this a current diagnosis for this admission?: Yes Plan: Continue with medical management. (8) HLD (hyperlipidemia) Qualifiers: Hyperlipidemia type: unspecified Qualified Code(s): E78.5 - Hyperlipidemia , unspecified Is this a current diagnosis for this admission?: Yes Plan: Continue with medical management. (9) HTN (hypertension) Qualifiers: Hypertension type: essential hypertension Qualified Code(s): I10 - Essential (primary) hypertension Is this a current diagnosis for this admission?: Yes Plan: Continue with medical management. - Time Critical Time spent with patient: 25-34 minutes - Inpatient Certification Medical Necessity: Need for IV Antibiotics - The patient requires inpatient hospitalization for ongoing respiratory failure. He is still somewhat dependent on BiPAP. He is also receiving intravenous antibiotics that cannot be given at home.
--- NOTE | 2017-07-30 10:10 | Progress Note ---
Provider Note Provider Note: The patient does not appear to be receiving tobramycin. This appears to have been discontinued yesterday. He is receiving ceftazidime. I was able to pull up the Pseudomonas culture from 2 weeks ago and the organism is susceptible to ceftazidime which we will continue at this time.
[2017-07-30] MEDS: ASPIRIN 325 MG TABLET PO SCH (10:28)
[2017-07-30] MEDS: FAMOTIDINE 20 MG TABLET PO SCH ×2 (10:28→17:07)
[2017-07-30] MEDS: FLUTICASONE/SALMETEROL DISKUS 250-50 MCG/DOSE IH SCH ×2 (10:29→21:20)
[2017-07-30] MEDS: TIOTROPIUM BROMIDE DPI 5 CAP/KIT (18 MCG/CAP) IH SCH (10:29)
[2017-07-30] MEDS: METOPROLOL SUCCINATE 25 MG TAB.SR.24H PO SCH (10:29)
[2017-07-30] MEDS: TAMSULOSIN HCL 0.4 MG CAP.SR.24H PO SCH ×2 (10:29→17:07)
[2017-07-30] MEDS: DIGOXIN 0.125 MG TABLET PO SCH (10:29)
[2017-07-30] MEDS: FLUTICASONE NASAL SPRAY 50 MCG/SPRY 120 SPRAY/16 GM NASL SCH ×2 (10:29→21:19)
[2017-07-30] MEDS: GUAIFENESIN SYRP 200 MG/10 ML UDC PO PRN (21:18)
[2017-07-30] MEDS: ATORVASTATIN CALCIUM 80 MG TABLET PO SCH (21:20)
[2017-07-30] MEDS: MONTELUKAST SODIUM 10 MG TABLET PO SCH (21:22)
--- NOTE | 2017-07-30 22:03 | EKG REPORT ---
SEVERITY:- ABNORMAL ECG - ATRIAL-PACED COMPLEXES VENTRICULAR PREMATURE COMPLEX LAD, CONSIDER LEFT ANTERIOR FASCICULAR BLOCK BORDERLINE T ABNORMALITIES, ANTERIOR LEADS : Confirmed by: Martha Mccall 30-Jul-2017 22:03:28
[2017-07-31] MEDS: IPRATROPIUM/ALBUTEROL 0.5-2.5 MG/3 ML AMPUL NEB SCH ×4 (01:53→19:53)
[2017-07-31] MEDS: HEPARIN SOD (PORCINE) 5,000 UNIT/ML 1 ML SYRINGE SUBCUT SCH ×3 (05:15→22:13)
[2017-07-31] MEDS: METHYLPREDNISOLONE INJ 40 MG/1 ML SDV IV SCH ×2 (05:16→22:13)
[2017-07-31] MEDS: GABAPENTIN 300 MG CAPSULE PO SCH ×3 (05:16→22:10)
[2017-07-31] MEDS: CEFTAZIDIME PENTAHYDRATE 2 GM in DEXTROSE 5%-WATER 100 ML IV SCH ×2 (05:16→17:35)
[2017-07-31 06:21] LABS: ANION GAP 6 (5-19); BLOOD UREA NITROGEN 26 mg/dL (7-20); CALCIUM 9.5 mg/dL (8.4-10.2); CARBON DIOXIDE 32 mmol/L (22-30); CHLORIDE 102 mmol/L (98-107); CREATININE RESULT 0.79 mg/dL (0.52-1.25); GLUCOSE 122 mg/dL (75-110); POTASSIUM 4.7 mmol/L (3.6-5.0); SODIUM 139.7 mmol/L (137-145)
[2017-07-31] MEDS: TIOTROPIUM BROMIDE DPI 5 CAP/KIT (18 MCG/CAP) IH SCH (10:40)
[2017-07-31] MEDS: ASPIRIN 325 MG TABLET PO SCH (10:41)
[2017-07-31] MEDS: TAMSULOSIN HCL 0.4 MG CAP.SR.24H PO SCH ×2 (10:41→17:35)
[2017-07-31] MEDS: DIGOXIN 0.125 MG TABLET PO SCH (10:41)
[2017-07-31] MEDS: FLUTICASONE/SALMETEROL DISKUS 250-50 MCG/DOSE IH SCH ×2 (10:41→22:12)
[2017-07-31] MEDS: METOPROLOL SUCCINATE 25 MG TAB.SR.24H PO SCH (10:41)
[2017-07-31] MEDS: FAMOTIDINE 20 MG TABLET PO SCH ×2 (10:41→17:35)
[2017-07-31] MEDS: FLUTICASONE NASAL SPRAY 50 MCG/SPRY 120 SPRAY/16 GM NASL SCH ×2 (10:41→22:11)
--- NOTE | 2017-07-31 12:30 | PDOC PROGRESS REPORT ---
Subjective Progress Note for:: 07/31/17 Subjective:: The patient is an 81-year-old male with underlying COPD (presumed severe) who presents with an exacerbation of COPD, acute on chronic hypoxic respiratory failure. The patient also has underlying bronchiectasis. The patient had a sputum culture that grew Pseudomonas approximately 2 weeks ago. The patient reported to me this morning that he felt that the tobramycin nebulizer treatment triggered his current admission. Initially, tobramycin was written for upon admission but it was stopped on 29 July 2017. The patient is bringing up very little sputum. He denies hemoptysis. Today, the patient states that he feels a lot better when compared to admission. He actually has been off BiPAP since yesterday afternoon. Yesterday afternoon he took a walk on supplemental oxygen and he was preparing for a walk this morning when I examined him. He is not yet back to baseline but feels that he is improving. His only other complaint today is constipation. Physical Exam Vital Signs: Temp Pulse Resp BP Pulse Ox 97.7 F 64 20 108/53 L 94 07/31/17 11:11 07/31/17 11:11 07/31/17 11:11 07/31/17 11:11 07/31/17 11:11 Intake & Output 07/30/17 07/31/17 08/01/17 06:59 06:59 06:59 Intake Total 1030 1300 Output Total 1700 Balance 1030 -400 Weight 59.6 kg 59.6 kg General appearance: PRESENT: no acute distress, cooperative Head exam: PRESENT: atraumatic Eye exam: PRESENT: EOMI Respiratory exam: PRESENT: accessory muscle use, rhonchi, wheezes Cardiovascular exam: PRESENT: RRR GI/Abdominal exam: PRESENT: normal bowel sounds, soft Extremities exam: PRESENT: full ROM Musculoskeletal exam: PRESENT: ambulatory Neurological exam: PRESENT: alert Skin exam: PRESENT: intact Results Laboratory Results: 07/29/17 06:47 07/31/17 04:58 07/31/17 04:58 Sodium 139.7 Potassium 4.7 Chloride 102 Carbon Dioxide 32 H Anion Gap 6 BUN 26 H Creatinine 0.79 Est GFR ( Amer) > 60 Est GFR (Non-Af Amer) > 60 Glucose 122 H Calcium 9.5 Impressions: Chest X-Ray 07/28/17 03:47 IMPRESSION: Small right basilar pneumonia. Recommend CR surveillance in 7-12 weeks as clinically warranted. Assessment & Plan - Diagnosis (1) Hyperkalemia Plan: Repeat labs today show the potassium to be improved at 4.7. (2) COPD with acute exacerbation Is this a current diagnosis for this admission?: Yes Plan: Continue corticosteroids, antibiotics and nebulizer treatments. Patient is improving, dose of IV steroids has been decreased today. (3) Pseudomonas pneumonia Qualifiers: Laterality: right Lung location: lower lobe of lung Qualified Code(s): J15.1 - Pneumonia due to Pseudomonas Is this a current diagnosis for this admission?: Yes Plan: Continue intravenous therapy while here. Patient is receiving ceftazadine. (4) Acute on chronic respiratory failure with hypoxemia Is this a current diagnosis for this admission?: Yes Plan: Continue supplemental oxygen and BiPAP as needed. The patient does not want intubation. His CODE STATUS was changed yesterday to reflect the fact that he does not want to be intubated. He is actually doing better and has not been on BiPAP starting yesterday afternoon. (5) Insomnia Qualifiers: Insomnia type: unspecified Qualified Code(s): G47.00 - Insomnia, unspecified Plan: Patient does not complain of insomnia this morning. (6) Atrial fibrillation Qualifiers: Atrial fibrillation type: paroxysmal Qualified Code(s): I48.0 - Paroxysmal atrial fibrillation Is this a current diagnosis for this admission?: Yes Plan: Currently, patient is in sinus rhythm. (7) CAD (coronary artery disease) Qualifiers: Coronary Disease-Associated Artery/Lesion type: [place] artery [place] vs. transplanted heart: [place] heart Associated angina: without angina Qualified Code(s): I25.10 - Atherosclerotic heart disease of [place] coronary artery without angina pectoris Is this a current diagnosis for this admission?: Yes Plan: Continue with medical management. (8) HTN (hypertension) Qualifiers: Hypertension type: essential hypertension Qualified Code(s): I10 - Essential (primary) hypertension Is this a current diagnosis for this admission?: Yes (9) HLD (hyperlipidemia) Qualifiers: Hyperlipidemia type: unspecified Qualified Code(s): E78.5 - Hyperlipidemia , unspecified Is this a current diagnosis for this admission?: Yes Plan: Continue with medical management. - Time Time Spent with patient: 25-34 minutes - Inpatient Certification Medical Necessity: Significant Comorbidiites Make Outpatient Treatment Too Risky , Need Close Monitoring Due to Risk of Patient Decompensation, Need for Nebulizer Therapy and Monitoring of Response, Need for IV Antibiotics
[2017-07-31] MEDS: GUAIFENESIN SYRP 200 MG/10 ML UDC PO PRN (14:08)
[2017-07-31] MEDS: DOCUSATE SODIUM 100 MG CAPSULE PO SCH (17:35)
[2017-07-31] MEDS: MONTELUKAST SODIUM 10 MG TABLET PO SCH (22:11)
[2017-07-31] MEDS: ATORVASTATIN CALCIUM 80 MG TABLET PO SCH (22:11)
[2017-08-01] MEDS: IPRATROPIUM/ALBUTEROL 0.5-2.5 MG/3 ML AMPUL NEB SCH ×4 (02:02→20:10)
[2017-08-01] MEDS: HEPARIN SOD (PORCINE) 5,000 UNIT/ML 1 ML SYRINGE SUBCUT SCH ×3 (06:06→22:29)
[2017-08-01] MEDS: GABAPENTIN 300 MG CAPSULE PO SCH ×3 (06:08→22:29)
[2017-08-01 06:24] LABS: ANION GAP 10 (5-19); BLOOD UREA NITROGEN 26 mg/dL (7-20); CALCIUM 9.4 mg/dL (8.4-10.2); CARBON DIOXIDE 30 mmol/L (22-30); CHLORIDE 101 mmol/L (98-107); CREATININE RESULT 0.72 mg/dL (0.52-1.25); GLUCOSE 125 mg/dL (75-110); POTASSIUM 4.6 mmol/L (3.6-5.0); SODIUM 140.9 mmol/L (137-145)
[2017-08-01] MEDS: CEFTAZIDIME PENTAHYDRATE 2 GM in DEXTROSE 5%-WATER 100 ML IV SCH ×2 (06:49→18:05)
[2017-08-01] MEDS: FAMOTIDINE 20 MG TABLET PO SCH ×2 (08:39→15:47)
[2017-08-01] MEDS: ASPIRIN 325 MG TABLET PO SCH (11:54)
[2017-08-01] MEDS: METHYLPREDNISOLONE INJ 40 MG/1 ML SDV IV SCH ×2 (11:54→22:29)
[2017-08-01] MEDS: METOPROLOL SUCCINATE 25 MG TAB.SR.24H PO SCH (11:55)
[2017-08-01] MEDS: DOCUSATE SODIUM 100 MG CAPSULE PO SCH ×2 (11:55→17:58)
[2017-08-01] MEDS: DIGOXIN 0.125 MG TABLET PO SCH (11:56)
[2017-08-01] MEDS: FLUTICASONE/SALMETEROL DISKUS 250-50 MCG/DOSE IH SCH ×2 (11:57→22:29)
[2017-08-01] MEDS: TAMSULOSIN HCL 0.4 MG CAP.SR.24H PO SCH ×2 (11:57→17:58)
[2017-08-01] MEDS: FLUTICASONE NASAL SPRAY 50 MCG/SPRY 120 SPRAY/16 GM NASL SCH ×2 (11:57→22:29)
--- NOTE | 2017-08-01 13:39 | PDOC PROGRESS REPORT ---
Subjective Progress Note for:: 08/01/17 Subjective:: The patient is an 81-year-old male with underlying COPD (presumed severe) who presents with an exacerbation of COPD, acute on chronic hypoxic respiratory failure. The patient also has underlying bronchiectasis. The patient had a sputum culture that grew Pseudomonas approximately 2 weeks ago. The patient reported to me this morning that he felt that the tobramycin nebulizer treatment triggered his current admission. Initially, tobramycin was written for upon admission but it was stopped on 29 July 2017. The patient is bringing up very little sputum. He denies hemoptysis. Today, the patient is not feeling as well as he did yesterday. He was on BiPAP for most of the night. He just feels more short of breath. He is not bringing up any sputum. His review of systems is otherwise unchanged. Physical Exam Vital Signs: Temp Pulse Resp BP Pulse Ox 97.8 F 99 18 115/54 L 100 08/01/17 11:28 08/01/17 11:28 08/01/17 11:28 08/01/17 11:28 08/01/17 11:28 Intake & Output 07/31/17 08/01/17 08/02/17 06:59 06:59 06:59 Intake Total 1300 1930 Output Total 1700 700 Balance -400 1230 Weight 59.6 kg 59.6 kg General appearance: PRESENT: no acute distress, cooperative Head exam: PRESENT: atraumatic Eye exam: PRESENT: EOMI Respiratory exam: PRESENT: accessory muscle use, rhonchi - Lungs sound better today with less rhonchi. Cardiovascular exam: PRESENT: RRR GI/Abdominal exam: PRESENT: soft, other - Patient has an abdominal bruit just to the right of midline. Extremities exam: PRESENT: full ROM Musculoskeletal exam: PRESENT: ambulatory Neurological exam: PRESENT: alert, awake Psychiatric exam: PRESENT: appropriate affect Skin exam: PRESENT: other - She has some areas on his skin that look concerning for skin cancer. They are primarily on his face. This has been discussed with the patient. Results Laboratory Results: 07/29/17 06:47 08/01/17 05:30 08/01/17 05:30 Sodium 140.9 Potassium 4.6 Chloride 101 Carbon Dioxide 30 Anion Gap 10 BUN 26 H Creatinine 0.72 Est GFR ( Amer) > 60 Est GFR (Non-Af Amer) > 60 Glucose 125 H Calcium 9.4 Impressions: Chest X-Ray 07/28/17 03:47 IMPRESSION: Small right basilar pneumonia. Recommend CR surveillance in 7-12 weeks as clinically warranted. Assessment & Plan - Diagnosis (1) Hyperkalemia Plan: Repeat labs today show the potassium to be improved at 4.6. (2) COPD with acute exacerbation Is this a current diagnosis for this admission?: Yes Plan: Continue corticosteroids, antibiotics and nebulizer treatments. Patient is improving, dose of IV steroids was decreased yesterday. Perhaps this is why the patient feels a little bit worse. In any event, we cannot continue the high doses of steroids indefinitely. I was hoping to switch to oral steroids today, but, I will refrain from switching to oral steroids and continue IV steroids at the current dose. Bronchodilators will be continued. I have recommended that the patient participate in pulmonary rehabilitation upon discharge. (3) Pseudomonas pneumonia Qualifiers: Laterality: right Lung location: lower lobe of lung Qualified Code(s): J15.1 - Pneumonia due to Pseudomonas Is this a current diagnosis for this admission?: Yes Plan: Continue intravenous therapy while here. Patient is receiving ceftazadine. (4) Acute on chronic respiratory failure with hypoxemia Is this a current diagnosis for this admission?: Yes Plan: Continue supplemental oxygen and BiPAP as needed. The patient does not want intubation. His CODE STATUS was changed to reflect the fact that he does not want to be intubated. (5) Insomnia Qualifiers: Insomnia type: unspecified Qualified Code(s): G47.00 - Insomnia, unspecified Plan: Patient does not complain of insomnia this morning. (6) Atrial fibrillation Qualifiers: Atrial fibrillation type: paroxysmal Qualified Code(s): I48.0 - Paroxysmal atrial fibrillation Is this a current diagnosis for this admission?: Yes Plan: Currently, patient is in sinus rhythm. (7) CAD (coronary artery disease) Qualifiers: Coronary Disease-Associated Artery/Lesion type: [place] artery [place] vs. transplanted heart: [place] heart Associated angina: without angina Qualified Code(s): I25.10 - Atherosclerotic heart disease of [place] coronary artery without angina pectoris Is this a current diagnosis for this admission?: Yes Plan: Continue with medical management. (8) HTN (hypertension) Qualifiers: Hypertension type: essential hypertension Qualified Code(s): I10 - Essential (primary) hypertension Is this a current diagnosis for this admission?: Yes Plan: Continue with medical management. (9) HLD (hyperlipidemia) Qualifiers: Hyperlipidemia type: unspecified Qualified Code(s): E78.5 - Hyperlipidemia , unspecified Is this a current diagnosis for this admission?: Yes Plan: Continue with medical management. (10) Abdominal bruit Plan: The patient has an abdominal bruit. I noted this finding today. The patient states that he has an abdominal aortic aneurysm. This is being followed by the heart center. He is having periodic ultrasound exams. - Time Time Spent with patient: 25-34 minutes Within: within 72 hours - Inpatient Certification Medical Necessity: Significant Comorbidiites Make Outpatient Treatment Too Risky , Need Close Monitoring Due to Risk of Patient Decompensation, Need for IV Antibiotics
[2017-08-01] MEDS: TIOTROPIUM BROMIDE DPI 5 CAP/KIT (18 MCG/CAP) IH SCH (14:42)
[2017-08-01] MEDS: ATORVASTATIN CALCIUM 80 MG TABLET PO SCH (22:29)
[2017-08-01] MEDS: MONTELUKAST SODIUM 10 MG TABLET PO SCH (22:29)
[2017-08-02] MEDS: IPRATROPIUM/ALBUTEROL 0.5-2.5 MG/3 ML AMPUL NEB SCH ×4 (01:54→19:56)
[2017-08-02] MEDS: CEFTAZIDIME PENTAHYDRATE 2 GM in DEXTROSE 5%-WATER 100 ML IV SCH ×2 (05:26→17:15)
[2017-08-02] MEDS: GABAPENTIN 300 MG CAPSULE PO SCH ×3 (05:27→21:34)
[2017-08-02] MEDS: HEPARIN SOD (PORCINE) 5,000 UNIT/ML 1 ML SYRINGE SUBCUT SCH ×3 (05:27→21:34)
[2017-08-02 06:21] LABS: BLOOD UREA NITROGEN 29 mg/dL (7-20); CALCIUM 9.2 mg/dL (8.4-10.2); CHLORIDE 101 mmol/L (98-107); CREATININE RESULT 0.71 mg/dL (0.52-1.25); GLUCOSE 120 mg/dL (75-110); POTASSIUM 4.7 mmol/L (3.6-5.0)
[2017-08-02 06:31] LABS: ANION GAP 6 (5-19); CARBON DIOXIDE 32 mmol/L (22-30)
[2017-08-02] MEDS: TIOTROPIUM BROMIDE DPI 5 CAP/KIT (18 MCG/CAP) IH SCH (10:16)
[2017-08-02] MEDS: FLUTICASONE/SALMETEROL DISKUS 250-50 MCG/DOSE IH SCH ×2 (10:16→21:34)
[2017-08-02] MEDS: METHYLPREDNISOLONE INJ 40 MG/1 ML SDV IV SCH ×2 (10:17→21:34)
[2017-08-02] MEDS: FAMOTIDINE 20 MG TABLET PO SCH ×2 (10:17→17:15)
[2017-08-02] MEDS: ASPIRIN 325 MG TABLET PO SCH (10:17)
[2017-08-02] MEDS: FLUTICASONE NASAL SPRAY 50 MCG/SPRY 120 SPRAY/16 GM NASL SCH ×2 (10:17→21:34)
[2017-08-02] MEDS: METOPROLOL SUCCINATE 25 MG TAB.SR.24H PO SCH (10:17)
[2017-08-02] MEDS: DOCUSATE SODIUM 100 MG CAPSULE PO SCH ×2 (10:17→17:15)
[2017-08-02] MEDS: TAMSULOSIN HCL 0.4 MG CAP.SR.24H PO SCH ×2 (10:18→17:15)
[2017-08-02] MEDS: DIGOXIN 0.125 MG TABLET PO SCH (10:18)
--- NOTE | 2017-08-02 13:37 | PDOC PROGRESS REPORT ---
Subjective Progress Note for:: 08/02/17 Subjective:: The patient is an 81-year-old male with underlying COPD (presumed severe) who presents with an exacerbation of COPD, acute on chronic hypoxic respiratory failure. The patient also has underlying bronchiectasis. The patient had a sputum culture that grew Pseudomonas approximately 2 weeks ago. The patient reported to me this morning that he felt that the tobramycin nebulizer treatment triggered his current admission. Initially, tobramycin was written for upon admission but it was stopped on 29 July 2017. Initially, the patient was bringing up very little sputum. He denies hemoptysis. The patient is not yet back to baseline. He still feels more short of breath when compared to being on corticosteroids 40 mg IV every 8. I did decrease his dose of intravenous steroids to every 12 hours about 24 hours ago. Again, last evening he required BiPAP. Today, he relates that he is coughing up more sputum. His sputum is yellow in color and fairly thick and mucinous. He does not have any hemoptysis. Physical Exam Vital Signs: Temp Pulse Resp BP Pulse Ox 97.6 F 68 18 136/53 H 92 08/02/17 07:38 08/02/17 08:43 08/02/17 08:43 08/02/17 07:38 08/02/17 08:43 Intake & Output 08/01/17 08/02/17 08/03/17 06:59 06:59 06:59 Intake Total 1930 1415 Output Total 700 900 Balance 1230 515 Weight 59.6 kg 59.6 kg General appearance: PRESENT: no acute distress, cooperative, thin Head exam: PRESENT: atraumatic Eye exam: PRESENT: EOMI Mouth exam: PRESENT: moist, neck supple Neck exam: PRESENT: full ROM Respiratory exam: PRESENT: accessory muscle use, rhonchi Cardiovascular exam: PRESENT: RRR GI/Abdominal exam: PRESENT: normal bowel sounds, soft Rectal exam: PRESENT: deferred - Extremity exam demonstrates edema in the left lower extremity and ankle. This is the patient's baseline since he underwent coronary artery bypass grafting and has saphenous vein graft at this area. Neurological exam: PRESENT: alert, awake Psychiatric exam: PRESENT: appropriate affect Additional comments: Skin exam does demonstrate purpura. Patient has very thin and friable skin likely from chronic steroid use. Results Laboratory Results: 07/29/17 06:47 08/02/17 05:10 08/02/17 05:10 Sodium 139.0 Potassium 4.7 Chloride 101 Carbon Dioxide 32 H Anion Gap 6 BUN 29 H Creatinine 0.71 Est GFR ( Amer) > 60 Est GFR (Non-Af Amer) > 60 Glucose 120 H Calcium 9.2 07/28/17 05:11 Blood Blood Culture - Final NO GROWTH IN 5 DAYS Impressions: Chest X-Ray 07/28/17 03:47 IMPRESSION: Small right basilar pneumonia. Recommend CR surveillance in 7-12 weeks as clinically warranted. Assessment & Plan - Diagnosis (1) Hyperkalemia Is this a current diagnosis for this admission?: Yes Plan: Repeat labs today show the potassium to be stable at 4.7. (2) COPD with acute exacerbation Is this a current diagnosis for this admission?: Yes Plan: Continue corticosteroids, antibiotics and nebulizer treatments. Patient appears to be slowly improving. I informed the patient again that he will not go back to his previous baseline due to progression of his underlying disease. At this point in time he will require another 24-48 hours in the hospital for intravenous corticosteroids. (3) Pseudomonas pneumonia Qualifiers: Laterality: right Lung location: lower lobe of lung Qualified Code(s): J15.1 - Pneumonia due to Pseudomonas Is this a current diagnosis for this admission?: Yes Plan: Continue intravenous therapy while here. Patient is receiving ceftazadine. Total duration of therapy should be 14 days. This should include parenteral and oral therapy. (4) Acute on chronic respiratory failure with hypoxemia Is this a current diagnosis for this admission?: Yes Plan: Continue supplemental oxygen and BiPAP as needed. The patient does not want intubation. His CODE STATUS was changed to reflect the fact that he does not want to be intubated. (5) Atrial fibrillation Qualifiers: Atrial fibrillation type: paroxysmal Qualified Code(s): I48.0 - Paroxysmal atrial fibrillation Is this a current diagnosis for this admission?: Yes (6) CAD (coronary artery disease) Qualifiers: Coronary Disease-Associated Artery/Lesion type: [place] artery [place] vs. transplanted heart: [place] heart Associated angina: without angina Qualified Code(s): I25.10 - Atherosclerotic heart disease of [place] coronary artery without angina pectoris Is this a current diagnosis for this admission?: Yes Plan: Continue with medical management. (7) HTN (hypertension) Qualifiers: Hypertension type: essential hypertension Qualified Code(s): I10 - Essential (primary) hypertension Is this a current diagnosis for this admission?: Yes Plan: Continue with medical management. (8) HLD (hyperlipidemia) Qualifiers: Hyperlipidemia type: unspecified Qualified Code(s): E78.5 - Hyperlipidemia , unspecified Is this a current diagnosis for this admission?: Yes Plan: Continue with medical management. (9) Abdominal bruit Is this a current diagnosis for this admission?: Yes Plan: The patient has an abdominal bruit. I noted this finding yesterday. The patient states that he has an abdominal aortic aneurysm. This is being followed by the heart center. He is having periodic ultrasound exams. - Time Time Spent with patient: 15-24 minutes - Inpatient Certification Medical Necessity: Significant Comorbidiites Make Outpatient Treatment Too Risky , Need Close Monitoring Due to Risk of Patient Decompensation, Need for Nebulizer Therapy and Monitoring of Response, Need for IV Antibiotics
[2017-08-02] MEDS: HYDROCODONE/ACETAMINOPHEN 7.5-325 MG TABLET PO PRN (17:52)
[2017-08-02] MEDS: MONTELUKAST SODIUM 10 MG TABLET PO SCH (21:34)
[2017-08-02] MEDS: ATORVASTATIN CALCIUM 80 MG TABLET PO SCH (21:34)
[2017-08-03] MEDS: IPRATROPIUM/ALBUTEROL 0.5-2.5 MG/3 ML AMPUL NEB SCH ×4 (01:54→20:21)
[2017-08-03 05:06] LABS: ANION GAP 6 (5-19); BLOOD UREA NITROGEN 26 mg/dL (7-20); CALCIUM 9.2 mg/dL (8.4-10.2); CARBON DIOXIDE 33 mmol/L (22-30); CHLORIDE 102 mmol/L (98-107); CREATININE RESULT 0.72 mg/dL (0.52-1.25); GLUCOSE 130 mg/dL (75-110); POTASSIUM 4.8 mmol/L (3.6-5.0); SODIUM 140.8 mmol/L (137-145)
[2017-08-03] MEDS: CEFTAZIDIME PENTAHYDRATE 2 GM in DEXTROSE 5%-WATER 100 ML IV SCH (05:33)
[2017-08-03] MEDS: GABAPENTIN 300 MG CAPSULE PO SCH ×3 (05:34→22:22)
[2017-08-03] MEDS: HEPARIN SOD (PORCINE) 5,000 UNIT/ML 1 ML SYRINGE SUBCUT SCH ×3 (05:34→22:26)
[2017-08-03] MEDS: FAMOTIDINE 20 MG TABLET PO SCH ×2 (07:36→16:39)
[2017-08-03] MEDS: TAMSULOSIN HCL 0.4 MG CAP.SR.24H PO SCH ×2 (10:11→17:35)
[2017-08-03] MEDS: ASPIRIN 325 MG TABLET PO SCH (10:11)
[2017-08-03] MEDS: DOCUSATE SODIUM 100 MG CAPSULE PO SCH ×2 (10:11→17:35)
[2017-08-03] MEDS: FLUTICASONE/SALMETEROL DISKUS 250-50 MCG/DOSE IH SCH ×2 (10:12→22:23)
[2017-08-03] MEDS: DIGOXIN 0.125 MG TABLET PO SCH (10:12)
[2017-08-03] MEDS: FLUTICASONE NASAL SPRAY 50 MCG/SPRY 120 SPRAY/16 GM NASL SCH ×2 (10:12→22:23)
[2017-08-03] MEDS: METOPROLOL SUCCINATE 25 MG TAB.SR.24H PO SCH (10:12)
[2017-08-03] MEDS: METHYLPREDNISOLONE INJ 40 MG/1 ML SDV IV SCH ×2 (10:13→22:23)
[2017-08-03] MEDS: TIOTROPIUM BROMIDE DPI 5 CAP/KIT (18 MCG/CAP) IH SCH (10:13)
--- NOTE | 2017-08-03 13:38 | PDOC PROGRESS REPORT ---
Subjective Progress Note for:: 08/03/17 Subjective:: Patient sitting up in bed. Patient states that he still not able to take real deep breath. Patient still having productive cough. Patient did not sleep with BiPAP last night. Patient is willing to try chest physiotherapy. Physical Exam Vital Signs: Temp Pulse Resp BP Pulse Ox 97.9 F 59 L 18 130/54 H 100 08/03/17 11:48 08/03/17 11:48 08/03/17 11:48 08/03/17 11:48 08/03/17 11:48 Intake & Output 08/02/17 08/03/17 08/04/17 06:59 06:59 06:59 Intake Total 1415 1830 Output Total 900 850 Balance 515 980 Weight 59.6 kg 62.1 kg General appearance: PRESENT: no acute distress, cooperative Head exam: PRESENT: normocephalic Eye exam: PRESENT: EOMI Mouth exam: PRESENT: moist Neck exam: PRESENT: full ROM. ABSENT: lymphadenopathy Respiratory exam: PRESENT: decreased breath sounds, rhonchi. ABSENT: retraction , unlabored Cardiovascular exam: PRESENT: RRR GI/Abdominal exam: PRESENT: soft. ABSENT: tenderness Rectal exam: PRESENT: deferred Extremities exam: ABSENT: pedal edema Musculoskeletal exam: PRESENT: full ROM Neurological exam: PRESENT: alert, altered, awake, CN II-XII grossly intact Psychiatric exam: PRESENT: normal mood Skin exam: PRESENT: warm Results Laboratory Results: 07/29/17 06:47 08/03/17 03:56 08/03/17 03:56 Sodium 140.8 Potassium 4.8 Chloride 102 Carbon Dioxide 33 H Anion Gap 6 BUN 26 H Creatinine 0.72 Est GFR ( Amer) > 60 Est GFR (Non-Af Amer) > 60 Glucose 130 H Calcium 9.2 Impressions: Chest X-Ray 07/28/17 03:47 IMPRESSION: Small right basilar pneumonia. Recommend CR surveillance in 7-12 weeks as clinically warranted. Assessment & Plan - Diagnosis (1) Hyperkalemia Is this a current diagnosis for this admission?: Yes Plan: Potassium is stable at 4.8. Renal function is normal. We will continue to monitor intermittently. (2) COPD with acute exacerbation Is this a current diagnosis for this admission?: Yes Plan: Continue current dose of steroids which is 40 mg IV twice daily, antibiotics, and breathing treatments. Patient will be treated transition to p.o. steroids tomorrow. Will also start chest physical therapy to see if this improves patient symptoms. Patient is currently using a flutter valve which he says helps some. (3) Pseudomonas pneumonia Qualifiers: Laterality: right Lung location: lower lobe of lung Qualified Code(s): J15.1 - Pneumonia due to Pseudomonas Is this a current diagnosis for this admission?: Yes Plan: She is currently on ceftazidime this is day 6 of treatment was recommended that patient complete 14 days of treatment. (4) Acute on chronic respiratory failure with hypoxemia Is this a current diagnosis for this admission?: Yes Plan: Patient is on supplemental oxygen. Patient is using BiPAP as needed. Patient did not use BiPAP last night. Patient does not want to be intubated patient is currently a DO NOT INTUBATE. (5) Atrial fibrillation Qualifiers: Atrial fibrillation type: paroxysmal Qualified Code(s): I48.0 - Paroxysmal atrial fibrillation Is this a current diagnosis for this admission?: Yes Plan: Patient currently in normal sinus rhythm with heart rates in the 50s. We will continue patient on his metoprolol succinate 25 mg daily and digoxin 0.125 mg p.o. daily. Patient is not on anticoagulation however he is on high-dose aspirin. (6) CAD (coronary artery disease) Qualifiers: Coronary Disease-Associated Artery/Lesion type: [place] artery [place] vs. transplanted heart: [place] heart Associated angina: without angina Qualified Code(s): I25.10 - Atherosclerotic heart disease of [place] coronary artery without angina pectoris Is this a current diagnosis for this admission?: Yes Plan: Is currently on medical management management with beta-sung statin and aspirin. (7) HLD (hyperlipidemia) Qualifiers: Hyperlipidemia type: unspecified Qualified Code(s): E78.5 - Hyperlipidemia , unspecified Is this a current diagnosis for this admission?: Yes Plan: Continue statin. (8) HTN (hypertension) Qualifiers: Hypertension type: essential hypertension Qualified Code(s): I10 - Essential (primary) hypertension Is this a current diagnosis for this admission?: Yes (9) Abdominal bruit Is this a current diagnosis for this admission?: Yes Plan: Patient has a history of abdominal aortic aneurysm. Which is being followed by the heart center. Patient states that he does have periodic ultrasound examinations. - Time Time Spent with patient: 15-24 minutes - Current comorbidities may outpatient treatment risky. Patient is still requiring close monitoring while on IV antibiotics and steroids.
[2017-08-03] MEDS: ATORVASTATIN CALCIUM 80 MG TABLET PO SCH (22:22)
[2017-08-03] MEDS: MONTELUKAST SODIUM 10 MG TABLET PO SCH (22:22)
[2017-08-03] MEDS: HYDROCODONE/ACETAMINOPHEN 7.5-325 MG TABLET PO PRN (22:28)
[2017-08-04] MEDS: IPRATROPIUM/ALBUTEROL 0.5-2.5 MG/3 ML AMPUL NEB SCH ×4 (01:54→20:14)
[2017-08-04] MEDS: GABAPENTIN 300 MG CAPSULE PO SCH ×3 (05:19→22:12)
[2017-08-04] MEDS: HEPARIN SOD (PORCINE) 5,000 UNIT/ML 1 ML SYRINGE SUBCUT SCH ×3 (05:19→22:11)
[2017-08-04 05:38] LABS: ANION GAP 7 (5-19); BLOOD UREA NITROGEN 29 mg/dL (7-20); CALCIUM 9.3 mg/dL (8.4-10.2); CARBON DIOXIDE 33 mmol/L (22-30); CHLORIDE 101 mmol/L (98-107); CREATININE RESULT 0.77 mg/dL (0.52-1.25); GLUCOSE 119 mg/dL (75-110); POTASSIUM 4.9 mmol/L (3.6-5.0)
[2017-08-04] MEDS: FAMOTIDINE 20 MG TABLET PO SCH ×2 (08:07→15:09)
[2017-08-04] MEDS ORDERED: ERGOCALCIFEROL (VITAMIN D2) 50000 UNIT (1.25 MG) CAPSULE PO SCH (10:00)
[2017-08-04] MEDS ORDERED: (PENDING PHARMACY ID) (Cholecalciferol (Vitamin D3) [Vitamin D3] 50,000 UNIT) PO SCH (10:00)
[2017-08-04] MEDS: METHYLPREDNISOLONE INJ 40 MG/1 ML SDV IV SCH (10:22)
[2017-08-04] MEDS: LEVOFLOXACIN 750 MG TABLET PO SCH (10:22)
[2017-08-04] MEDS: METOPROLOL SUCCINATE 25 MG TAB.SR.24H PO SCH (10:23)
[2017-08-04] MEDS: DOCUSATE SODIUM 100 MG CAPSULE PO SCH ×2 (10:23→17:24)
[2017-08-04] MEDS: DIGOXIN 0.125 MG TABLET PO SCH (10:24)
[2017-08-04] MEDS: TAMSULOSIN HCL 0.4 MG CAP.SR.24H PO SCH ×2 (10:25→17:25)
[2017-08-04] MEDS: ASPIRIN 325 MG TABLET PO SCH (10:25)
[2017-08-04] MEDS: FLUTICASONE/SALMETEROL DISKUS 250-50 MCG/DOSE IH SCH ×2 (10:25→22:12)
[2017-08-04] MEDS: FLUTICASONE NASAL SPRAY 50 MCG/SPRY 120 SPRAY/16 GM NASL SCH ×2 (10:26→22:12)
[2017-08-04] MEDS: TIOTROPIUM BROMIDE DPI 5 CAP/KIT (18 MCG/CAP) IH SCH (10:26)
[2017-08-04] MEDS ORDERED: HYDROCODONE/ACETAMINOPHEN 7.5-325 MG TABLET PO PRN (14:15)
--- NOTE | 2017-08-04 15:41 | PDOC PROGRESS REPORT ---
Subjective Progress Note for:: 08/04/17 Subjective:: Patient states that he breathing is still not good. Patient is also complaining of back pain. Physical Exam Vital Signs: Temp Pulse Resp BP Pulse Ox 98.4 F 64 17 118/71 100 08/04/17 11:16 08/04/17 14:00 08/04/17 13:48 08/04/17 11:16 08/04/17 11:16 Intake & Output 08/03/17 08/04/17 08/05/17 06:59 06:59 06:59 Intake Total 1830 2084 Output Total 850 1500 Balance 980 584 Weight 62.1 kg 60.9 kg General appearance: PRESENT: no acute distress, thin - frail Head exam: PRESENT: normocephalic Respiratory exam: PRESENT: decreased breath sounds, rales, rhonchi, unlabored Cardiovascular exam: PRESENT: RRR GI/Abdominal exam: PRESENT: normal bowel sounds, soft Rectal exam: PRESENT: deferred Extremities exam: ABSENT: pedal edema Musculoskeletal exam: PRESENT: full ROM Neurological exam: PRESENT: alert, awake, oriented to person, oriented to place , oriented to time, oriented to situation, CN II-XII grossly intact Psychiatric exam: PRESENT: normal mood Skin exam: PRESENT: warm Results Laboratory Results: 07/29/17 06:47 08/04/17 05:05 08/04/17 05:05 Sodium 141.0 Potassium 4.9 Chloride 101 Carbon Dioxide 33 H Anion Gap 7 BUN 29 H Creatinine 0.77 Est GFR ( Amer) > 60 Est GFR (Non-Af Amer) > 60 Glucose 119 H Calcium 9.3 Impressions: Chest X-Ray 07/28/17 03:47 IMPRESSION: Small right basilar pneumonia. Recommend CR surveillance in 7-12 weeks as clinically warranted. Assessment & Plan - Diagnosis (1) Hyperkalemia Is this a current diagnosis for this admission?: Yes Plan: Potassium is stable at 4.9. Patient has normal renal function. (2) COPD with acute exacerbation Is this a current diagnosis for this admission?: Yes Plan: Will continue IV steroids as daily dosing, ceftazidime switched to levaquin. Patient continue on nebs and flutter valve. Patient asked to walk the hallways. Will continue chest CPT. (3) Pseudomonas pneumonia Qualifiers: Laterality: right Lung location: lower lobe of lung Qualified Code(s): J15.1 - Pneumonia due to Pseudomonas Is this a current diagnosis for this admission?: Yes Plan: Patient transitioned to oral levaquin from ceftazidime on 08/03. (4) Acute on chronic respiratory failure with hypoxemia Is this a current diagnosis for this admission?: Yes (5) Atrial fibrillation Qualifiers: Atrial fibrillation type: paroxysmal Qualified Code(s): I48.0 - Paroxysmal atrial fibrillation Is this a current diagnosis for this admission?: Yes Plan: Patient currently in normal sinus rhythm with heart rates in the 50s. Will continue patient on his metoprolol succinate 25 mg daily and digoxin 0.125 mg p.o. daily. Patient is not on anticoagulation however he is on high-dose aspirin. (6) CAD (coronary artery disease) Qualifiers: Coronary Disease-Associated Artery/Lesion type: [place] artery [place] vs. transplanted heart: [place] heart Associated angina: without angina Qualified Code(s): I25.10 - Atherosclerotic heart disease of [place] coronary artery without angina pectoris Is this a current diagnosis for this admission?: Yes Plan: Continue medical management with beta-sung statin and aspirin. (7) HLD (hyperlipidemia) Qualifiers: Hyperlipidemia type: unspecified Qualified Code(s): E78.5 - Hyperlipidemia , unspecified Is this a current diagnosis for this admission?: Yes Plan: Continue statin. (8) HTN (hypertension) Qualifiers: Hypertension type: essential hypertension Qualified Code(s): I10 - Essential (primary) hypertension Is this a current diagnosis for this admission?: Yes Plan: Stable on current medications. (9) Abdominal bruit Is this a current diagnosis for this admission?: Yes Plan: Patient has a history of abdominal aortic aneurysm. Which is being followed by the heart center. Patient states that he does have periodic ultrasound examinations. - Time Time Spent with patient: Less than 15 minutes Anticipated discharge: Home Within: within 24 hours - Plan Summary Plan Summary: Patient transitioned to oral antibiotics. Currently still on IV steroids at a decreased dose.
[2017-08-04] MEDS: ATORVASTATIN CALCIUM 80 MG TABLET PO SCH (22:12)
[2017-08-04] MEDS: MONTELUKAST SODIUM 10 MG TABLET PO SCH (22:12)
[2017-08-05] MEDS: IPRATROPIUM/ALBUTEROL 0.5-2.5 MG/3 ML AMPUL NEB SCH ×3 (02:11→13:57)
[2017-08-05 05:07] LABS: ANION GAP 5 (5-19); BLOOD UREA NITROGEN 26 mg/dL (7-20); CALCIUM 9.3 mg/dL (8.4-10.2); CARBON DIOXIDE 34 mmol/L (22-30); CHLORIDE 102 mmol/L (98-107); CREATININE RESULT 0.79 mg/dL (0.52-1.25); GLUCOSE 90 mg/dL (75-110); POTASSIUM 4.8 mmol/L (3.6-5.0)
[2017-08-05] MEDS: HEPARIN SOD (PORCINE) 5,000 UNIT/ML 1 ML SYRINGE SUBCUT SCH ×2 (05:45→13:36)
[2017-08-05] MEDS: GABAPENTIN 300 MG CAPSULE PO SCH ×2 (05:45→13:35)
[2017-08-05] MEDS: FAMOTIDINE 20 MG TABLET PO SCH (09:00)
[2017-08-05] MEDS: ASPIRIN 325 MG TABLET PO SCH (09:01)
[2017-08-05] MEDS: LEVOFLOXACIN 750 MG TABLET PO SCH (09:01)
[2017-08-05] MEDS: DIGOXIN 0.125 MG TABLET PO SCH (09:01)
[2017-08-05] MEDS: METOPROLOL SUCCINATE 25 MG TAB.SR.24H PO SCH (09:01)
[2017-08-05] MEDS: DOCUSATE SODIUM 100 MG CAPSULE PO SCH (09:01)
[2017-08-05] MEDS: TAMSULOSIN HCL 0.4 MG CAP.SR.24H PO SCH (09:01)
[2017-08-05] MEDS: FLUTICASONE/SALMETEROL DISKUS 250-50 MCG/DOSE IH SCH (09:01)
[2017-08-05] MEDS: FLUTICASONE NASAL SPRAY 50 MCG/SPRY 120 SPRAY/16 GM NASL SCH (09:02)
[2017-08-05] MEDS ORDERED: METHYLPREDNISOLONE INJ 40 MG/1 ML SDV IV SCH (10:00)
[2017-08-05 12:20] VITALS: BP 106/48
[2017-08-05] MEDS: TIOTROPIUM BROMIDE DPI 5 CAP/KIT (18 MCG/CAP) IH SCH (13:34)
--- NOTE | 2017-08-06 01:23 | PDOC DISCHARGE SUMMARY ---
General - Admit/Disc Date/PCP Admission Date/Primary Care Provider: 07/28/17 05:07 MAVIS FISHER MD Discharge Date: 08/05/17 - Discharge Diagnosis (1) Hyperkalemia Is this a current diagnosis for this admission?: Yes (2) COPD with acute exacerbation Is this a current diagnosis for this admission?: Yes (3) Pseudomonas pneumonia Is this a current diagnosis for this admission?: Yes (4) Acute on chronic respiratory failure with hypoxemia Is this a current diagnosis for this admission?: Yes (5) Atrial fibrillation Is this a current diagnosis for this admission?: Yes (6) CAD (coronary artery disease) Is this a current diagnosis for this admission?: Yes (7) HLD (hyperlipidemia) Is this a current diagnosis for this admission?: Yes (8) HTN (hypertension) Is this a current diagnosis for this admission?: Yes (9) Abdominal bruit Is this a current diagnosis for this admission?: Yes - Additional Information Resuscitation Status: Full Code Discharge Diet: Regular Discharge Activity: Activity As Tolerated Home Medications: Albuterol Sulfate [Proair HFA] 2 puff IH Q4HP PRN 07/28/17 Aspirin [Aspirin 325 mg Tablet] 325 mg PO DAILY 07/28/17 Atorvastatin Calcium [Lipitor 80 mg Tablet] 80 mg PO QHS 07/28/17 Cholecalciferol (Vitamin D3) [Vitamin D3] 50,000 unit PO WE@1000 07/28/17 Digoxin [Lanoxin 0.125 mg Tablet] 0.125 mg PO DAILY 07/28/17 Gabapentin [Neurontin] 600 mg PO Q8 07/28/17 Hydrocodone/Acetaminophen [[place] 7.5-325 mg Tablet] 1 tab PO TIDP PRN 07/28/17 Metoprolol Succinate [Toprol Xl 25 mg Tab.sr] 12.5 mg PO DAILY 07/28/17 Ranitidine HCl [Zantac 150 mg Tablet] 150 mg PO BIDACBS 07/28/17 Tamsulosin HCl [Flomax 0.4 mg Cap.sr] 0.8 mg PO QPM 07/28/17 Albuterol Sulfate [Albuterol Sulfate 2.5mg/3 mL] 1 vial IH RTQ6HP PRN 30 Days ml 08/05/17 Aspirin [Aspirin 325 mg Tablet] 325 mg PO DAILY tablet 08/05/17 Atorvastatin Calcium [Lipitor 80 mg Tablet] 80 mg PO QHS tablet 08/05/17 Fluticasone/Salmeterol [Advair 250-50 Diskus 28 dose] 1 inh IH Q12 #1 inhaler Ipratropium/Albuterol Sulfate [Duoneb 3 ml Ampul] 3 ml NEB RTQ6HP PRN 30 Days vial.neb 08/05/17 Levofloxacin [Levaquin 750 mg Tablet] 750 mg PO DAILY #6 tablet 08/05/17 Tamsulosin HCl [Flomax 0.4 mg Cap.sr] 0.4 mg PO BID cap.sr.24h 08/05/17 Tiotropium [place] [Spiriva Handihaler 18 mcg/dose (30 Dose)] 1 cap IH DAILY # 30 cap.w.dev 08/05/17 History of Present Illness History of Present Illness: JEAN-PIERRE OLIVAREZ is a 81 year old male with a past medical history of coronary artery disease, permanent pacemaker, atrial fibrillation, oxygen dependent COPD , bronchiectasis and recurrent pneumonia whose sputum culture grew Pseudomonas 2 weeks ago and was subsequently placed on inhaled tobramycin. He has had significant worsening of the last 72 hours prompting a call to EMS finding him with oxygen saturations of 83% despite oxygen use. He received continuous albuterol nebulizer, magnesium sulfate with BiPAP support and he is referred to the hospitalist for admission. He denies chest pain nausea vomiting diaphoresis. Hospital Course Hospital Course: Patient presented with COPD exacerbation most likely secondary to his Pseudomonas pneumonia pneumonia. Patient was receiving Tobra nebs however he was unable to tolerate this medication. He was then started on ceftazidime. This medication was later on transitioned to Levaquin. He was made recommended that patient complete 14 days of treatment with the Levaquin. Patient COPD exacerbation seems to be improving however patient has a unrealistic expectation of complete resolution despite having underlying chronic lung disease leaving him oxygen dependent. Patient did use his supplemental oxygen during the day however did use BiPAP occasionally at night. Patient made it clear that he does not want to be intubated at any time therefore he was made a DO NOT INTUBATE. Patient also has a history of atrial fibrillation which was fairly well-controlled during his hospitalization occasionally patient become tachycardic with activity however this will resolve immediately with rest. He also has a history of coronary artery disease for which he was continued on aspirin statin and beta-sung. He was continued on his statin for his hyperlipidemia. Hypertension remains stable on his current medications. Patient also was noted to have a abdominal bruit for which he is being followed at the heart center. Physical Exam Vital Signs: Temp Pulse Resp BP Pulse Ox 98.9 F 65 18 106/48 L 98 08/05/17 14:03 08/05/17 14:03 08/05/17 14:03 08/05/17 14:03 08/05/17 14:03 Intake & Output 08/04/17 08/05/17 08/06/17 06:59 06:59 06:59 Intake Total 2084 2216 Output Total 1500 3800 Balance 584 -1584 Weight 60.9 kg 60.9 kg General appearance: PRESENT: no acute distress, thin Eye exam: PRESENT: EOMI Respiratory exam: PRESENT: decreased breath sounds, rhonchi, unlabored. ABSENT : accessory muscle use, prolonged expiratory phas Cardiovascular exam: PRESENT: RRR GI/Abdominal exam: PRESENT: normal bowel sounds, soft. ABSENT: tenderness Rectal exam: PRESENT: deferred Extremities exam: ABSENT: pedal edema Musculoskeletal exam: PRESENT: full ROM Neurological exam: PRESENT: alert, awake, oriented to person, oriented to place , oriented to time, oriented to situation, CN II-XII grossly intact Psychiatric exam: PRESENT: normal mood Results Laboratory Results: 07/29/17 06:47 08/05/17 04:10 08/05/17 04:10 Sodium 141.0 Potassium 4.8 Chloride 102 Carbon Dioxide 34 H Anion Gap 5 BUN 26 H Creatinine 0.79 Est GFR ( Amer) > 60 Est GFR (Non-Af Amer) > 60 Glucose 90 Calcium 9.3 Impressions: Chest X-Ray 07/28/17 03:47 IMPRESSION: Small right basilar pneumonia. Recommend CR surveillance in 7-12 weeks as clinically warranted. Plan Time Spent: Greater than 30 Minutes - All patient medications were called into his [facility] pharmacy prior to discharge.
== END 2017-08-05 14:45 | disposition home health service (06) | DRG 190 ==
LOC: ER 03:45 → EH 05:02 → OBSVTOIN 05:07 → INTOOBSV 05:07 → UNDOADMOB 05:07 → EH 05:07 → 5 05:59
PROVIDERS: ADMIT Internal Medicine; ATTEND Internal Medicine
PROC: 5A09457 Assistance with Respiratory Ventilation, 24-96 Consecutive Hours, Continuous Positive Airway Pressure (ICD-10-PCS; principal; 2017-07-28)
PROC: 3E0F73Z Introduction of Anti-inflammatory into Respiratory Tract, Via Natural or Artificial Opening (ICD-10-PCS; 2017-07-28)
DX: J44.0 Chronic obstructive pulmonary disease with (acute) lower respiratory infection (principal); J15.1 Pneumonia due to Pseudomonas; J96.21 Acute and chronic respiratory failure with hypoxia; J44.1 Chronic obstructive pulmonary disease with (acute) exacerbation; E87.5 Hyperkalemia; I48.0 Paroxysmal atrial fibrillation; I25.10 Atherosclerotic heart disease of native coronary artery without angina pectoris; E78.5 Hyperlipidemia, unspecified; I10 Essential (primary) hypertension; I25.2 Old myocardial infarction; K21.9 Gastro-esophageal reflux disease without esophagitis; M19.90 Unspecified osteoarthritis, unspecified site; K59.00 Constipation, unspecified; G47.00 Insomnia, unspecified; Z66 Do not resuscitate; Z79.899 Other long term (current) drug therapy; Z79.82 Long term (current) use of aspirin; Z95.0 Presence of cardiac pacemaker; Z99.81 Dependence on supplemental oxygen; Z86.14 Personal history of Methicillin resistant Staphylococcus aureus infection; Z95.5 Presence of coronary angioplasty implant and graft; Z87.891 Personal history of nicotine dependence; Z83.6 Family history of other diseases of the respiratory system; Z80.8 Family history of malignant neoplasm of other organs or systems
CPT/HCPCS: 36415; 71010; 80048; 80053; 82550; 82553; 82803; 83735; 84484; 85025; 87040; 93005; 93010; 94640; 94660; 94667; 94668; 94799; 96365; 99285; J0610; J0713; J1644; J1940; J2920; J3490; J7512; J7620; J7685

== ENCOUNTER 2017-10-05 16:14 | Inpatient (IN) | payer MEDICARE, BC ==
[2017-10-05] MEDS ORDERED: IPRATROPIUM/ALBUTEROL 0.5-2.5 MG/3 ML AMPUL NEB ONE (16:34)
[2017-10-05 16:47] LABS: ABSOLUTE BASOPHILS # (AUTO) 0.1 10^3/uL (0.0-0.2); ABSOLUTE EOSINOPHILS # (AUTO) 0.7 10^3/uL (0.0-0.6); ABSOLUTE LYMPHOCYTES (AUTO) 2.3 10^3/uL (0.5-4.7); ABSOLUTE MONOCYTES (AUTO) 1.2 10^3/uL (0.1-1.4); ABSOLUTE NEUT (AUTO) 4.7 10^3/uL (1.7-8.2); BASOPHILS % (AUTO) 0.6 % (0-2); EOSINOPHILS % (AUTO) 7.4 % (0-6); HEMATOCRIT 36.2 % (37.9-51.0); HGB HCT DIFFERENCE -0.2; LYMPHOCYTES % (AUTO) 25.8 % (13-45); MEAN CORPUSCULAR HEMOGLOBIN 28.6 pg (27.0-33.4); MEAN CORPUSCULAR VOLUME 87 fl (80-97); RED BLOOD COUNT 4.19 10^6/uL (4.35-5.55); RED CELL DISTRIBUTION WIDTH 16.8 % (11.5-14.0); SEGMENTED NEUTROPHILS % (AUTO) 53.2 % (42-78); WHITE BLOOD COUNT 8.9 10^3/uL (4.0-10.5)
[2017-10-05 16:53] LABS: ALANINE AMINOTRANSFERASE 25 U/L (21-72); ALKALINE PHOSPHATASE 103 U/L (38-126); ANION GAP 10 (5-19); ASPARTATE AMINO TRANSFERASE 27 U/L (17-59); BILIRUBIN,DIRECT 0.4 mg/dL (0.0-0.4); BILIRUBIN,TOTAL 0.4 mg/dL (0.2-1.3); BLOOD UREA NITROGEN 28 mg/dL (7-20); CALCIUM 9.5 mg/dL (8.4-10.2); CARBON DIOXIDE 32 mmol/L (22-30); CHLORIDE 100 mmol/L (98-107); CREATINE KINASE 47 U/L (55-170); CREATININE RESULT 1.26 mg/dL (0.52-1.25); GLUCOSE 102 mg/dL (75-110); POTASSIUM 5.1 mmol/L (3.6-5.0); SODIUM 141.8 mmol/L (137-145); TOTAL PROTEIN 7.4 g/dL (6.3-8.2)
[2017-10-05 17:04] LABS: CREATINE KINASE MB 1.95 ng/mL (<4.55); TROPONIN I 0.014 ng/mL
--- NOTE | 2017-10-05 17:15 | RADIOLOGY REPORT (SQ) ---
EXAM DESCRIPTION: CHEST SINGLE VIEW COMPLETED DATE/TIME: 10/05/2017 5:00 pm REASON FOR STUDY: sob, cough, copd COMPARISON: 07/28/2017 EXAM PARAMETERS: NUMBER OF VIEWS: One view. TECHNIQUE: Single frontal radiographic view of the chest acquired. RADIATION DOSE: NA LIMITATIONS: None. FINDINGS: LUNGS AND PLEURA: There is some minimal increased density in the right lung base which cou ld represent atelectatic changes or minimal infiltrate. Remaining lung hernandez are clear. No pleural effusions are identified. No pneumothorax is seen. Again there is evidence for obstructive lung di sease. MEDIASTINUM AND HILAR STRUCTURES: No masses. Contour normal. HEART AND VASCULAR STRUCTURES: Heart normal in size. Normal vasculature. BONES: No acute findings. HARDWARE: Patient is status post median sternotomy. Transvenous pacemaker is unchanged in position. OTHER: No other significant finding. IMPRESSION: Minimal increased density in the right lung base which could represent atelectatic fernandes es or a minimal infiltrate. Remaining lung hernandez are clear. Again there is evidence for obstructiv e lung disease. Other findings as noted above. TECHNICAL DOCUMENTATION: JOB ID: [id number] [employer]- All Rights Reserved
[2017-10-05] MEDS ORDERED: ACETAMINOPHEN 325 MG TABLET PO PRN (18:05)
--- NOTE | 2017-10-05 18:07 | ER Document Report ---
ED Respiratory Problem - General Chief Complaint: Breathing Difficulty Stated Complaint: DIFFICULTY BREATHING Time Seen by Provider: 10/05/17 16:28 Mode of Arrival: Medic Information source: Patient Notes: Patient is an 81-year-old male with COPD who is brought into the emergency department by EMS today for difficulty breathing, respiratory distress. Patient states that for the past 13 days he has been on antibiotics, he cannot tell me the name of these. He states that Dr. Red, his die finisher placed him on this for pneumonia. He is on 2 L of oxygen at home normally. He does also have inhalers that he has been using that he states has not been helping. He states that breathing got worse today. He admits to wheezing, cough that is productive. States that a sputum culture came back that showed MRSA pneumonia. TRAVEL OUTSIDE OF THE [place] IN LAST 30 DAYS: No - Related Data Allergies/Adverse Reactions: No Known Allergies Allergy (Verified 10/30/16 06:40) Past Medical History - General Information source: Patient - Social History Smoking Status: Former Smoker Chew tobacco use (# tins/day): No Frequency of alcohol use: None Drug Abuse: None Family History: COPD, Malignancy - Brain tumor - Past Medical History Cardiac Medical History: Reports: Hx Atrial Fibrillation - Aspirin only due to epistaxis with systemic anticoagulation., Hx Coronary Artery Disease, Hx Heart Attack - 08/2009, Hx Hypercholesterolemia, Hx Hypertension Denies: Hx DVT, Hx Pulmonary Embolism Pulmonary Medical History: Reports: Hx COPD, Hx Pneumonia Denies: Hx Asthma, Hx Sleep Apnea Neurological Medical History: Denies: Hx Cerebrovascular Accident, Hx Seizures Endocrine Medical History: Denies: Hx Diabetes Mellitus Type 1, Hx Diabetes Mellitus Type 2, Hx Hyperthyroidism, Hx Hypothyroidism Malignancy Medical History: Reports Hx Skin Cancer GI Medical History: Reports: Hx Gastroesophageal Reflux Disease. Denies: Hx Cirrhosis, Hx Hepatitis, Hx Hiatal Hernia, Hx Ulcer Musculoskeltal Medical History: Reports Hx Arthritis, Reports Hx Musculoskeletal Trauma Psychiatric Medical History: Denies: Hx Depression Infectious Medical History: Reports: Hx MRSA. Denies: Hx C-Diff, Hx Hepatitis Past Surgical History: Reports: Hx Appendectomy, Hx Coronary Artery Bypass Graft , Hx Open Heart Surgery, Hx Orthopedic Surgery - back surgery, Hx Pacemaker - Immunizations Immunizations up to date: Yes Hx Diphtheria, Pertussis, Tetanus Vaccination: Yes Review of Systems - Review of Systems Constitutional: No symptoms reported EENT: No symptoms reported Cardiovascular: No symptoms reported Respiratory: See HPI Gastrointestinal: No symptoms reported Genitourinary: No symptoms reported Male Genitourinary: No symptoms reported Musculoskeletal: No symptoms reported Skin: No symptoms reported Hematologic/Lymphatic: No symptoms reported Neurological/Psychological: No symptoms reported Physical Exam - Vital signs Vitals: Resp 19 10/05/17 16:25 - Notes Notes: PHYSICAL EXAMINATION: GENERAL: Working harder to breathe, and mild respiratory distress HEAD: Atraumatic, normocephalic. EYES: Pupils equal round and reactive to light, extraocular movements intact, sclera anicteric, conjunctiva are normal. ENT: ear canals without erythema or foreign body, TMs pearly cross with good bony landmarks, nares patent, oropharynx clear without exudates. Moist mucous membranes. airway patent NECK: Normal range of motion, supple without lymphadenopathy LUNGS: Using accessory muscles to breathe, moderate wheezing throughout, no rales or rhonchi. HEART: Regular rate and rhythm without murmurs EXTREMITIES: Normal range of motion, no pitting edema. No cyanosis. NEUROLOGICAL: Cranial nerves grossly intact. Normal sensory/motor exams. PSYCH: Normal mood, normal affect. SKIN: Warm, Dry, normal turgor, no rashes or lesions noted Course - Re-evaluation Re-evalutation: 10/05/17 18:14 Laboratory evaluation unremarkable today, normal white blood cell count, chest x -ray reveals a worsening infiltrate in the right lower lobe. Patient on BiPAP, doing much better. Dr. Barrios, hospitalist agrees to admit patient at this time. VBG pending at this time. - Vital Signs Vital signs: Temp Pulse Resp BP Pulse Ox 14 154/52 H 95 10/05/17 17:40 10/05/17 17:01 10/05/17 17:40 - Laboratory Result Diagrams: 10/05/17 16:20 10/05/17 16:20 Laboratory results interpreted by me: 10/05/17 10/05/17 16:20 16:20 RBC 4.19 L Hgb 12.0 L Hct 36.2 L RDW 16.8 H Eosinophils % 7.4 H Absolute Eosinophils 0.7 H Potassium 5.1 H Carbon Dioxide 32 H BUN 28 H Creatinine 1.26 H Est GFR (Non-Af Amer) 55 L Creatine Kinase 47 L Discharge - Discharge Clinical Impression: Pneumonia Qualifiers: Pneumonia type: due to unspecified organism Laterality: right Lung location: lower lobe of lung Qualified Code(s): J18.1 - Lobar pneumonia, unspecified organism Condition: Stable Disposition: ADMITTED INPATIENT Admitting Provider: Hospitalist Unit Admitted: [facility]
[2017-10-05] MEDS ORDERED: PHARMACY COMMUNICATION ORDER MC NR (18:15)
[2017-10-05] MEDS ORDERED: ONDANSETRON HCL INJ/PF 4 MG/2 ML SDV IV PRN (18:15)
[2017-10-05] MEDS ORDERED: ALPRAZOLAM 0.25 MG TABLET PO PRN (18:46)
--- NOTE | 2017-10-05 19:45 | EKG REPORT ---
SEVERITY:- ABNORMAL ECG - SINUS RHYTHM PROBABLE INFERIOR INFARCT, AGE INDETERMINATE : Confirmed by: Tima Rendon MD 05-Oct-2017 19:44:14
[2017-10-05] MEDS: NORMAL SALINE 1000 ML 1,000 ML IV PRN ×2 (19:51→21:35)
[2017-10-05] MEDS: IPRATROPIUM/ALBUTEROL 0.5-2.5 MG/3 ML AMPUL NEB SCH (19:51)
[2017-10-05] MEDS ORDERED: METHYLPREDNISOLONE INJ 40 MG/1 ML SDV IV ONE (20:00)
[2017-10-05 20:01] LABS: APPEARANCE,URINE CLEAR; BILIRUBIN,URINE NEGATIVE (NEGATIVE); GLUCOSE, URINE NEGATIVE (NEGATIVE); KETONES,URINE NEGATIVE (NEGATIVE); LEUKOCYTE ESTERASE,URINE NEGATIVE (NEGATIVE); NITRITE,URINE NEGATIVE (NEGATIVE); PROTEIN,URINE NEGATIVE (NEGATIVE); URINE SPECIFIC GRAVITY 1.017; UROBILINOGEN,URINE NEGATIVE mg/dL (<2.0)
[2017-10-05] MEDS: CEFEPIME 2 GM/D5W RTU 2 GM/50 ML RTUPB IV SCH (21:37)
[2017-10-05] MEDS ORDERED: TAMSULOSIN HCL 0.4 MG CAP.SR.24H PO ONE (23:00)
[2017-10-05] MEDS ORDERED: METOPROLOL TARTRATE 50 MG TABLET PO ONE (23:09)
[2017-10-05] MEDS: HEPARIN SOD (PORCINE) 5,000 UNIT/ML 1 ML SYRINGE SUBCUT SCH (23:12)
[2017-10-05] MEDS: GUAIFENESIN 600 MG TABLET.SA PO SCH (23:12)
[2017-10-05] MEDS: LINEZOLID 300 ML IV SCH (23:12)
[2017-10-05] MEDS ORDERED: ATORVASTATIN CALCIUM 80 MG TABLET PO ONE (23:30)
[2017-10-05] MEDS ORDERED: GABAPENTIN 300 MG CAPSULE PO ONE (23:30)
[2017-10-05] MEDS ORDERED: CALCIUM CARBONATE 500 MG TAB.CHEW PO PRN (23:34)
[2017-10-05] MEDS ORDERED: LANSOPRAZOLE 30 MG TAB.RAP.DR PO ONE (23:45)
[2017-10-06 01:00] LABS: CREATINE KINASE MB 1.93 ng/mL (<4.55); TROPONIN I 0.012 ng/mL
--- NOTE | 2017-10-06 01:16 | PDOC H&P ---
History of Present Illness Admission Date/PCP: 10/05/17 18:22 KELLIE BASSETT Patient complains of: Shortness of breath worse today History of Present Illness: JEAN-PIERRE OLIVAREZ is a 81 year old male who arrived to ED via ambulance after calling 911 since got short of breath all of a sudden. Patient states that going to his car when could not breath. He did not know what to do but to call 911. Patient states that had been battling chest congestion and was seen by Dr Red 2 weeks ago. He was put on 2 different kinds of antibiotics (one is levaquin and the other one cannot remember the name). He was also placed on oxygen which he uses off/on. He is supposed to be on 2 liters. He admits history of COPD. Patient admits having productive cough mostly of white phlegm. He denies fever, chills or chest pain. While in route he was given oxygen with further improvement. He was placed on bipap but gets claustrophobic. Our service was contacted and prompted to admit. Past Medical History Cardiac Medical History: Reports: Atrial Fibrillation - Aspirin only due to epistaxis with systemic anticoagulation., Coronary Artery Disease, Myocardial Infarction - 08/2009, Hyperlipidema, Hypertension Denies: DVT, Pulmonary Embolism Pulmonary Medical History: Reports: Chronic Obstructive Pulmonary Disease (COPD) , Pneumonia Denies: Asthma, Sleep Apnea Neurological Medical History: Denies: Seizures Endocrine Medical History: Denies: Diabetes Mellitus Type 1, Diabetes Mellitus Type 2, Hyperthyroidism, Hypothyroidism Malignancy Medical History: Reports: Skin Cancer GI Medical History: Reports: Gastroesophageal Reflux Disease Denies: Cirrhosis, Hepatitis, Hiatal Hernia Musculoskeltal Medical History: Reports: Arthritis Psychiatric Medical History: Denies: Depression Hematology: Denies: Anemia, Sickle Cell Disease Infectious Medical History: Reports: Methicillin-Resistant Staph Aureus Denies: Clostridium Difficile Past Surgical History Past Surgical History: Reports: Appendectomy, Coronary Artery Bypass Graft, Orthopedic Surgery - back surgery, Pacemaker Social History Information Source: Patient Lives with: Spouse/Significant other Smoking Status: Former Smoker Frequency of Alcohol Use: None Hx Recreational Drug Use: No Drugs: None Hx Prescription Drug Abuse: No - Advance Directive Resuscitation Status: Do Not Resuscitate Family History Family History: COPD, Malignancy - Brain tumor Parental Family History Reviewed: Yes Children Family History Reviewed: Yes Sibling(s) Family History Reviewed.: Yes Medication/Allergy Home Medications: Albuterol Sulfate [Proair HFA] 2 puff IH Q4HP PRN 10/05/17 Aspirin [Aspirin 325 mg Tablet] 325 mg PO DAILY 10/05/17 Atorvastatin Calcium [Lipitor 80 mg Tablet] 80 mg PO DAILY 10/05/17 Digoxin [Digox] 125 mcg PO DAILY 10/05/17 Fluticasone/Salmeterol [Advair 250-50 Diskus 28 dose] 1 puff PO Q12 10/05/17 Gabapentin [Neurontin] 600 mg PO Q8 10/05/17 Hydrocodone/Acetaminophen [[place] 7.5-325 Tablet] 1 tab PO TIDP PRN 10/05/17 Metoprolol Succinate [Toprol Xl 25 mg Tab.sr] 25 mg PO DAILY 10/05/17 Nitroglycerin [Nitrostat] 0.4 mg SL Q5MP PRN 10/05/17 Sulfamethoxazole/Trimethoprim [Bactrim Ds Tablet] 1 tab PO BID 10/05/17 Tamsulosin HCl [Flomax 0.4 mg Cap.sr] 0.4 mg PO DAILY 10/05/17 Tiotropium [place] [Spiriva Handihaler 18 mcg/dose (30 Dose)] 1 cap IH DAILY 07/15 Allergies/Adverse Reactions: No Known Allergies Allergy (Verified 10/30/16 06:40) Review of Systems Constitutional: PRESENT: fatigue, fever(s). ABSENT: chills, headache(s), night sweats Eyes: ABSENT: visual disturbances Ears: ABSENT: hearing changes Cardiovascular: PRESENT: dyspnea on exertion. ABSENT: chest pain, palpitations Respiratory: PRESENT: cough, sputum Gastrointestinal: ABSENT: abdominal pain, bloating, diarrhea Musculoskeletal: PRESENT: joint swelling. ABSENT: deformity Neurological: ABSENT: focal weakness, frequent falls Psychiatric: PRESENT: anxiety Physical Exam Vital Signs: Temp Pulse Resp BP Pulse Ox 14 154/52 H 95 10/05/17 17:40 10/05/17 17:01 10/05/17 17:40 General appearance: PRESENT: no acute distress, cooperative, thin Head exam: PRESENT: atraumatic, normocephalic Eye exam: PRESENT: conjunctiva pink, EOMI, PERRLA Ear exam: PRESENT: normal external ear exam Mouth exam: PRESENT: moist, neck supple Neck exam: PRESENT: full ROM. ABSENT: JVD, tenderness, thyromegaly Respiratory exam: PRESENT: crackles - basilar, wheezes Cardiovascular exam: ABSENT: diastolic murmur - IRRR, systolic murmur Vascular exam: PRESENT: normal capillary refill GI/Abdominal exam: PRESENT: normal bowel sounds, soft, tenderness. ABSENT: organolmegaly Extremities exam: PRESENT: full ROM, pedal edema Musculoskeletal exam: PRESENT: ambulatory Neurological exam: PRESENT: alert, oriented to person, oriented to place, oriented to time Psychiatric exam: PRESENT: appropriate affect, normal mood Results Impressions: Chest X-Ray 10/05/17 16:34 IMPRESSION: Minimal increased density in the right lung base which could represent atelectatic changes or a minimal infiltrate. Remaining lung hernandez are clear. Again there is evidence for obstructive lung disease. Other findings as noted above. Assessment & Plan - Diagnosis (1) Bronchiectasis Is this a current diagnosis for this admission?: Yes Plan: Recent culture rony Pseudomonas and MRSA. To place on cefepime and zyvox. To order nebs, iv steroids and mucolytic (2) Acute on chronic respiratory failure with hypoxemia Is this a current diagnosis for this admission?: Yes Plan: Patient got anxious which aggravated dyspnea. To discontinue bipap and keep on oxygen which will be titrated as needed. (3) COPD with acute exacerbation Is this a current diagnosis for this admission?: Yes Plan: Oxygen, iv steroids, nebs and mucolytic. Order low dose xanax since gets anxious. To consult Dr Red in AM (4) Atrial fibrillation Qualifiers: Atrial fibrillation type: paroxysmal Qualified Code(s): I48.0 - Paroxysmal atrial fibrillation Is this a current diagnosis for this admission?: Yes Plan: Stable and watch for decompensation since using nebs. (5) HTN (hypertension) Qualifiers: Hypertension type: essential hypertension Qualified Code(s): I10 - Essential (primary) hypertension Is this a current diagnosis for this admission?: Yes Plan: Anticipate to continue outpatient regimen - Time Time Spent: 30 to 50 Minutes Medications reviewed and adjusted accordingly: Yes Anticipated discharge: Home Within: within 48 hours - Inpatient Certification Based on my medical assessment, after consideration of the patient's comorbidities, presenting symptoms, or acuity I expect that the services needed warrant INPATIENT care.: Yes I certify that my determination is in accordance with my understanding of Medicare's requirements for reasonable and necessary INPATIENT services [42 CFR 412.3e].: Yes Medical Necessity: Need For Continuous Telemetry Monitoring, Need for IV Antibiotics
[2017-10-06] MEDS: HYDROCODONE/ACETAMINOPHEN 7.5-325 MG TABLET PO PRN (01:36)
[2017-10-06] MEDS: IPRATROPIUM/ALBUTEROL 0.5-2.5 MG/3 ML AMPUL NEB SCH ×4 (02:00→20:07)
[2017-10-06] MEDS: METHYLPREDNISOLONE INJ 40 MG/1 ML SDV IV SCH ×3 (03:01→22:08)
[2017-10-06] MEDS: HEPARIN SOD (PORCINE) 5,000 UNIT/ML 1 ML SYRINGE SUBCUT SCH ×3 (06:41→22:09)
[2017-10-06] MEDS: GABAPENTIN 300 MG CAPSULE PO SCH ×3 (06:41→22:08)
[2017-10-06] MEDS: LANSOPRAZOLE 30 MG TAB.RAP.DR PO SCH ×2 (08:19→16:17)
[2017-10-06 09:03] LABS: ABSOLUTE MONOCYTES (AUTO) 0.1 10^3/uL (0.1-1.4); ABSOLUTE NEUT (AUTO) 4.5 10^3/uL (1.7-8.2); BASOPHILS % (AUTO) 0.2 % (0-2); HEMATOCRIT 35.8 % (37.9-51.0); HEMOGLOBIN 11.9 g/dL (13.5-17.0); HGB HCT DIFFERENCE -0.1; LYMPHOCYTES % (AUTO) 18.5 % (13-45); MEAN CORPUSCULAR HEMOGLOBIN 28.5 pg (27.0-33.4); MEAN CORPUSCULAR HGB CONC 33.3 g/dL (32.0-36.0); MEAN CORPUSCULAR VOLUME 86 fl (80-97); MONOCYTES % (AUTO) 1.6 % (3-13); RED BLOOD COUNT 4.18 10^6/uL (4.35-5.55); RED CELL DISTRIBUTION WIDTH 16.9 % (11.5-14.0); SEGMENTED NEUTROPHILS % (AUTO) 79.7 % (42-78); WHITE BLOOD COUNT 5.6 10^3/uL (4.0-10.5)
[2017-10-06 09:22] LABS: ANION GAP 9 (5-19); BLOOD UREA NITROGEN 24 mg/dL (7-20); CALCIUM 9.4 mg/dL (8.4-10.2); CARBON DIOXIDE 29 mmol/L (22-30); CHLORIDE 104 mmol/L (98-107); CREATINE KINASE 51 U/L (55-170); CREATININE RESULT 0.94 mg/dL (0.52-1.25); GLUCOSE 128 mg/dL (75-110); SODIUM 141.5 mmol/L (137-145)
[2017-10-06 09:30] LABS: POTASSIUM 4.1 mmol/L (3.6-5.0)
[2017-10-06 09:41] LABS: CREATINE KINASE MB 2.24 ng/mL (<4.55); TROPONIN I 0.013 ng/mL
[2017-10-06] MEDS: GUAIFENESIN 600 MG TABLET.SA PO SCH ×2 (09:46→22:08)
[2017-10-06] MEDS: ASPIRIN 325 MG TABLET PO SCH (09:46)
[2017-10-06] MEDS: DIGOXIN 0.125 MG TABLET PO SCH (09:47)
[2017-10-06] MEDS: TAMSULOSIN HCL 0.4 MG CAP.SR.24H PO SCH (09:47)
[2017-10-06] MEDS: LINEZOLID 300 ML IV SCH ×2 (09:48→23:57)
[2017-10-06] MEDS ORDERED: METOPROLOL SUCCINATE 25 MG TAB.SR.24H PO SCH (10:00)
[2017-10-06] MEDS ORDERED: LACTULOSE SYRUP 20 GM/30 ML UDCUP PO ONE (12:00)
--- NOTE | 2017-10-06 12:13 | PDOC PROGRESS REPORT ---
Subjective Progress Note for:: 10/06/17 Subjective:: Patient relates that the breathing is better. Complains of constipation for 5-6 days. Physical Exam Vital Signs: Temp Pulse Resp BP Pulse Ox 97.7 F 60 20 147/50 H 94 10/06/17 03:16 10/06/17 03:16 10/06/17 03:16 10/06/17 03:16 10/06/17 03:16 Intake & Output 10/05/17 10/06/17 10/07/17 06:59 06:59 06:59 Output Total 250 Balance -250 Weight 52 kg General appearance: PRESENT: no acute distress, cooperative, thin Head exam: PRESENT: atraumatic, normocephalic Eye exam: PRESENT: EOMI, PERRLA Mouth exam: PRESENT: moist, neck supple Neck exam: PRESENT: full ROM. ABSENT: JVD, lymphadenopathy, tenderness, thyromegaly Respiratory exam: PRESENT: clear to auscultation alicia Cardiovascular exam: ABSENT: diastolic murmur, gallop - IRR, systolic murmur Vascular exam: PRESENT: normal capillary refill GI/Abdominal exam: PRESENT: hypoactive bowel sounds, soft. ABSENT: guarding, tenderness Extremities exam: ABSENT: joint swelling, pedal edema Musculoskeletal exam: PRESENT: full ROM Neurological exam: PRESENT: oriented to person, oriented to place, oriented to time Results Laboratory Results: 10/05/17 19:49 Urine Color YELLOW Urine Appearance CLEAR Urine pH 6.0 Ur Specific Williamson 1.017 Urine Protein NEGATIVE Urine Glucose (UA) NEGATIVE Urine Ketones NEGATIVE Urine Blood NEGATIVE Urine Nitrite NEGATIVE Ur Leukocyte Esterase NEGATIVE Urine WBC (Auto) 1 Urine RBC (Auto) 0 10/06/17 10/06/17 00:18 00:18 Creatine Kinase 47 L CK-MB (CK-2) 1.93 Troponin I 0.012 Impressions: Chest X-Ray 10/05/17 16:34 IMPRESSION: Minimal increased density in the right lung base which could represent atelectatic changes or a minimal infiltrate. Remaining lung hernandez are clear. Again there is evidence for obstructive lung disease. Other findings as noted above. Assessment & Plan - Diagnosis (1) Bronchiectasis Is this a current diagnosis for this admission?: Yes Plan: Recent culture grew Pseudomonas and MRSA. continue cefepime/zyvox. Decrease steroids. Order sputum culture. (2) Acute on chronic respiratory failure with hypoxemia Is this a current diagnosis for this admission?: Yes Plan: Patient got anxious which aggravated dyspnea. Continue oxygen supplementation (3) COPD with acute exacerbation Is this a current diagnosis for this admission?: Yes Plan: Oxygen, nebs, mucolytic, restart Advair. Decrease iv steroids Continue low dose xanax since gets anxious. (4) Atrial fibrillation Qualifiers: Atrial fibrillation type: paroxysmal Qualified Code(s): I48.0 - Paroxysmal atrial fibrillation Is this a current diagnosis for this admission?: Yes Plan: Stable and watch for decompensation since using nebs. (5) HTN (hypertension) Qualifiers: Hypertension type: essential hypertension Qualified Code(s): I10 - Essential (primary) hypertension Is this a current diagnosis for this admission?: Yes Plan: Continue outpatient regimen (6) Constipation Is this a current diagnosis for this admission?: Yes Plan: Trial lactulose and add miralax - Time Time Spent with patient: 15-24 minutes Medications reviewed and adjusted accordingly: Yes Anticipated discharge: Home Within: within 48 hours - Inpatient Certification Based on my medical assessment, after consideration of the patient's comorbidities, presenting symptoms, or acuity I expect that the services needed warrant INPATIENT care.: Yes I certify that my determination is in accordance with my understanding of Medicare's requirements for reasonable and necessary INPATIENT services [42 CFR 412.3e].: Yes Medical Necessity: Need for Nebulizer Therapy and Monitoring of Response, Need for IV Antibiotics
[2017-10-06] MEDS: NORMAL SALINE 1000 ML 1,000 ML IV PRN (14:42)
[2017-10-06 17:17] LABS: CREATINE KINASE MB 1.99 ng/mL (<4.55)
[2017-10-06 17:21] LABS: TROPONIN I < 0.012 ng/mL
[2017-10-06] MEDS: LACTULOSE SYRUP 20 GM/30 ML UDCUP PO SCH (17:28)
[2017-10-06] MEDS: ALBUTEROL SULFATE 0.083% NEB 2.5 MG/3 ML AMPUL NEB PRN (17:39)
[2017-10-06] MEDS: FLUTICASONE/SALMETEROL DISKUS 500-50 MCG/DOSE IH SCH (22:08)
[2017-10-06] MEDS: ATORVASTATIN CALCIUM 80 MG TABLET PO SCH (22:08)
[2017-10-06] MEDS: CEFEPIME 2 GM/D5W RTU 2 GM/50 ML RTUPB IV SCH (22:09)
[2017-10-06] MEDS ORDERED: NA PHOS,M-B/NA PHOS,DI-BA (ADULT) 133 ML ENEMA PR ONE (23:00)
[2017-10-06] MEDS ORDERED: NA PHOS,M-B/NA PHOS,DI-BA (ADULT) 133 ML ENEMA PR PRN (23:03)
[2017-10-07] MEDS: IPRATROPIUM/ALBUTEROL 0.5-2.5 MG/3 ML AMPUL NEB SCH ×4 (01:53→20:04)
[2017-10-07] MEDS: NORMAL SALINE 1000 ML 1,000 ML IV PRN ×2 (06:19→21:38)
[2017-10-07] MEDS: HEPARIN SOD (PORCINE) 5,000 UNIT/ML 1 ML SYRINGE SUBCUT SCH ×3 (06:19→21:38)
[2017-10-07] MEDS: GABAPENTIN 300 MG CAPSULE PO SCH ×3 (06:20→21:40)
[2017-10-07] MEDS ORDERED: ONDANSETRON HCL INJ/PF 4 MG/2 ML SDV IV PRN (09:30)
[2017-10-07] MEDS ORDERED: ALPRAZOLAM 0.25 MG TABLET PO PRN (09:30)
[2017-10-07] MEDS: POLYETHYLENE GLYCOL 3350 POWDER 17 GM/1 PACKET PO SCH (09:39)
[2017-10-07] MEDS: ASPIRIN 325 MG TABLET PO SCH (09:40)
[2017-10-07] MEDS: LACTULOSE SYRUP 20 GM/30 ML UDCUP PO SCH ×2 (09:40→17:45)
[2017-10-07] MEDS: TAMSULOSIN HCL 0.4 MG CAP.SR.24H PO SCH (09:41)
[2017-10-07] MEDS: HYDROCODONE/ACETAMINOPHEN 7.5-325 MG TABLET PO PRN ×2 (09:42→23:00)
[2017-10-07] MEDS: GUAIFENESIN 600 MG TABLET.SA PO SCH ×2 (09:45→21:39)
[2017-10-07] MEDS: FLUTICASONE/SALMETEROL DISKUS 500-50 MCG/DOSE IH SCH ×2 (09:46→21:41)
[2017-10-07] MEDS: LINEZOLID 300 ML IV SCH ×2 (09:47→22:53)
[2017-10-07] MEDS: DIGOXIN 0.125 MG TABLET PO SCH (09:56)
[2017-10-07] MEDS: METHYLPREDNISOLONE INJ 40 MG/1 ML SDV IV SCH ×3 (10:02→21:38)
[2017-10-07] MEDS: LANSOPRAZOLE 30 MG TAB.RAP.DR PO SCH ×2 (10:03→16:10)
[2017-10-07 11:21] LABS: ARTERIAL BLOOD BASE EXCESS -1.9 mmol/L; ARTERIAL BLOOD O2 SATURATION 97.7 % (94-98)
--- NOTE | 2017-10-07 11:35 | PDOC PROGRESS REPORT ---
Subjective Progress Note for:: 10/07/17 Subjective:: Patient relates that the breathing is no better today.Was able to move his bowels with an enema. ROS All organ systems evaluated and negative except as in subject All significant laboratories and diagnostics have been reviewed Physical Exam Vital Signs: Temp Pulse Resp BP Pulse Ox 97.9 F 61 18 137/40 H 99 10/07/17 03:38 10/07/17 03:38 10/07/17 03:38 10/07/17 03:38 10/07/17 03:38 Intake & Output 10/06/17 10/07/17 10/08/17 06:59 06:59 06:59 Intake Total 832 2576 Output Total 250 1450 Balance 582 1126 Weight 52 kg 62.1 kg General appearance: PRESENT: no acute distress, cooperative, thin Head exam: PRESENT: atraumatic, normocephalic Eye exam: PRESENT: EOMI, PERRLA Ear exam: PRESENT: normal external ear exam Mouth exam: PRESENT: moist, neck supple Neck exam: PRESENT: full ROM. ABSENT: JVD, tenderness Respiratory exam: PRESENT: crackles - Crackles heard throughout with adequate movement of air, unlabored Cardiovascular exam: ABSENT: diastolic murmur - IRR, systolic murmur Vascular exam: PRESENT: normal capillary refill GI/Abdominal exam: PRESENT: normal bowel sounds, soft. ABSENT: tenderness Extremities exam: ABSENT: joint swelling, pedal edema Musculoskeletal exam: PRESENT: full ROM Neurological exam: PRESENT: alert, oriented to person, oriented to place, oriented to time Results Laboratory Results: 10/06/17 08:27 10/06/17 08:27 10/06/17 10/06/17 08:27 08:27 WBC 5.6 RBC 4.18 L Hgb 11.9 L Hct 35.8 L MCV 86 MCH 28.5 MCHC 33.3 RDW 16.9 H Plt Count 198 Seg Neutrophils % 79.7 H Lymphocytes % 18.5 Monocytes % 1.6 L Eosinophils % 0.0 Basophils % 0.2 Absolute Neutrophils 4.5 Absolute Lymphocytes 1.0 Absolute Monocytes 0.1 Absolute Eosinophils 0.0 Absolute Basophils 0.0 Sodium 141.5 Potassium 4.1 D Chloride 104 Carbon Dioxide 29 Anion Gap 9 BUN 24 H Creatinine 0.94 Est GFR ( Amer) > 60 Est GFR (Non-Af Amer) > 60 Glucose 128 H Calcium 9.4 10/06/17 10/06/17 10/06/17 00:18 00:18 08:27 Creatine Kinase 47 L 51 L CK-MB (CK-2) 1.93 Troponin I 0.012 10/06/17 10/06/17 10/06/17 08:27 16:37 16:37 Creatine Kinase 34 L CK-MB (CK-2) 2.24 1.99 Troponin I 0.013 < 0.012 Impressions: Chest X-Ray 10/05/17 16:34 IMPRESSION: Minimal increased density in the right lung base which could represent atelectatic changes or a minimal infiltrate. Remaining lung hernandez are clear. Again there is evidence for obstructive lung disease. Other findings as noted above. Assessment & Plan - Diagnosis (1) Bronchiectasis Is this a current diagnosis for this admission?: Yes Plan: Recent culture grew Pseudomonas and MRSA. Continue cefepime/zyvox. Increase steroids. Sputum culture ordered. (2) Acute on chronic respiratory failure with hypoxemia Is this a current diagnosis for this admission?: Yes Plan: Patient got anxious which aggravated dyspnea. Continue oxygen supplementation. Order ABG. Considering BiPAP at night but patient gets claustrophobic (3) COPD with acute exacerbation Is this a current diagnosis for this admission?: Yes Plan: Oxygen, nebs, mucolytic and Advair. Increase iv steroids Continue low dose xanax since gets anxious. At [employer] [facility] (4) Atrial fibrillation Qualifiers: Atrial fibrillation type: paroxysmal Qualified Code(s): I48.0 - Paroxysmal atrial fibrillation Is this a current diagnosis for this admission?: Yes Plan: Stable and watch for decompensation since using nebs. Order BNP and echocardiogram to evaluate dyspnea. (5) HTN (hypertension) Qualifiers: Hypertension type: essential hypertension Qualified Code(s): I10 - Essential (primary) hypertension Is this a current diagnosis for this admission?: Yes Plan: Continue outpatient regimen (6) Constipation Is this a current diagnosis for this admission?: Yes Plan: Improved after enema - Time Time Spent with patient: 15-24 minutes Medications reviewed and adjusted accordingly: Yes Anticipated discharge: Home - Inpatient Certification Based on my medical assessment, after consideration of the patient's comorbidities, presenting symptoms, or acuity I expect that the services needed warrant INPATIENT care.: Yes I certify that my determination is in accordance with my understanding of Medicare's requirements for reasonable and necessary INPATIENT services [42 CFR 412.3e].: Yes Medical Necessity: Need for Nebulizer Therapy and Monitoring of Response, Need for IV Antibiotics
[2017-10-07] MEDS: ROFLUMILAST 500 MCG TABLET PO SCH (12:24)
[2017-10-07] MEDS: ACETYLCYSTEINE 20% SOLN 800 MG/4 ML VIAL.NEB NEB SCH (20:04)
--- NOTE | 2017-10-07 20:58 | Physician Advisory Note ---
Physician Advisor ProgressNote .: Pursuant to the plan for [facility], I have reviewed the medical record for this patient. Physician Advisor Statement: Please consider documentin. Reason for abx: "Acute exacerbation of bronchiectasis due to Pseudomonas & MRSA", or "RLL pneumonia, suspect Pseudomonas & MRSA", or "Acute bronchitis", or ... 2. Support for dx Acute on Chronic Hypoxemic Respiratory Failure: "evidenced by labored breathing, & O2 sat 89% on his usual 2L O2, for EMS". Thanks! CK
[2017-10-07] MEDS: CEFEPIME 2 GM/D5W RTU 2 GM/50 ML RTUPB IV SCH (21:38)
[2017-10-07] MEDS: ATORVASTATIN CALCIUM 80 MG TABLET PO SCH (21:39)
[2017-10-08] MEDS: IPRATROPIUM/ALBUTEROL 0.5-2.5 MG/3 ML AMPUL NEB SCH ×4 (02:16→20:52)
[2017-10-08] MEDS: METHYLPREDNISOLONE INJ 40 MG/1 ML SDV IV SCH ×3 (05:59→21:30)
[2017-10-08] MEDS: HEPARIN SOD (PORCINE) 5,000 UNIT/ML 1 ML SYRINGE SUBCUT SCH ×3 (05:59→21:32)
[2017-10-08] MEDS: GABAPENTIN 300 MG CAPSULE PO SCH ×3 (05:59→21:31)
[2017-10-08] MEDS: ACETYLCYSTEINE 20% SOLN 800 MG/4 ML VIAL.NEB NEB SCH ×2 (07:48→20:51)
--- NOTE | 2017-10-08 08:53 | RADIOLOGY REPORT (SQ) ---
EXAM DESCRIPTION: CTA CHEST COMPLETED DATE/TIME: 10/08/2017 8:21 am REASON FOR STUDY: dyspnea COMPARISON: Recent radiographs. TECHNIQUE: CT scan of the chest performed using helical scanning technique with dynamic intravenous contrast injection. Images reviewed with lung, soft tissue and bone windows. Reconstructed coronal and sagittal MPR images reviewed. Additional 3 dimensional post-processing performed to develop Maximal Intensity Projection images (TX P). All images stored on PACS. All CT scanners at this facility use dose modulation, iterative reconstruction, and/or weight based d osing when appropriate to reduce radiation dose to as low as reasonably achievable (ALARA). [facility]: Dose Right [facility]: CareDose [facility]: Dose Right [facility]: Teradose 4D [facility]: Extreme Wireless Communication CONTRAST TYPE AND DOSE: contrast/concentration: Isovue 370.00 mg/ml; Total Contrast Delivered: 58.0 ml; Total Saline Delivered: 103.0 ml Contrast bolus optimized for the pulmonary arteries. Not diagnostic for the aorta. RENAL FUNCTION: Creatinine 0.9 RADIATION DOSE: Up-to-date CT equipment and radiation dose reduction techniques were employed. CTDIv ol: 7.9 - 9.4 mGy. DLP: 362 mGy-cm. . LIMITATIONS: None. 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 Patchy airsp danette disease right lower lobe ; debris and plugging of the regional bronchi. Faint potential intersti tial infiltrate left lower lobe. There is some associated bronchiectasis and mucous plugging in the airways here as well. No significant pleural effusion. No pleural plaque or calcification detected. AORTA AND GREAT VESSELS: No overt dissection or aneurysm, limited assessment. HEART: No pericardial effusion. Prior CABG. PULMONARY ARTERIES: No emboli visualized in the main pulmonary arteries or the segmental branches. HILAR AND MEDIASTINAL STRUCTURES: Small mediastinal nodes measuring just under 1 cm generally. Mild subcentimeter nodes in the bilateral joycelyn. HARDWARE: Left pacer. UPPER ABDOMEN: No significant findings. Limited exam. THYROID AND OTHER SOFT TISSUES: No masses. No adenopathy. BONES: No acute or significant finding. 3D MIPS: Confirm above findings. OTHER: No other significant finding. IMPRESSION: 1. Chronic changes of COPD. 2. Mucous plugging and infiltrates in the lung bases. 3. No evidence of pulmonary embolus. COMMENT: Quality ID # [id number]: Final reports with documentation of one or more dose reduction techniques (e.g., Automated exposure control, adjustment of the mA and/or kV according to patient size, use of iterative reconstruction technique) TECHNICAL DOCUMENTATION: JOB ID: [id number] [employer]- All Rights Reserved
[2017-10-08] MEDS: LINEZOLID 300 ML IV SCH (09:07)
[2017-10-08] MEDS: FLUTICASONE/SALMETEROL DISKUS 500-50 MCG/DOSE IH SCH ×2 (09:09→21:29)
[2017-10-08] MEDS: POLYETHYLENE GLYCOL 3350 POWDER 17 GM/1 PACKET PO SCH (09:09)
[2017-10-08] MEDS: GUAIFENESIN 600 MG TABLET.SA PO SCH ×2 (09:09→21:30)
[2017-10-08] MEDS: DIGOXIN 0.125 MG TABLET PO SCH (09:09)
[2017-10-08] MEDS: LACTULOSE SYRUP 20 GM/30 ML UDCUP PO SCH ×2 (09:09→17:05)
[2017-10-08] MEDS: LANSOPRAZOLE 30 MG TAB.RAP.DR PO SCH ×2 (09:09→17:05)
[2017-10-08] MEDS: TAMSULOSIN HCL 0.4 MG CAP.SR.24H PO SCH (09:09)
[2017-10-08] MEDS: ASPIRIN 325 MG TABLET PO SCH (09:10)
--- NOTE | 2017-10-08 09:39 | XCELERA REPORT ---
[address] [address] Transthoracic Echocardiogram Report Name: JEAN-PIERRE OLIVAREZ Age: 81 yrs Gender: Male : 1935 Patient Status: Inpatient Patient Location: [address] [place] [address] Study Date: 10/07/2017 02:01 PM Height: 68 in Weight: 136 lb BSA: 1.7 m2 Procedure: A complete two-dimensional transthoracic echocardiogram was performed (2D, M-mode, spectral and color flow Doppler). The study was technically difficult with many images being suboptimal in quality. Reason For Study: dyspnea Ordering Physician: ALEJA GARCIA Performed By: Lolis Mario Interpretation Summary The study was technically difficult with many images being suboptimal in quality. The left ventricular ejection fraction is normal. There is mild concentric left ventricular hypertrophy. The left ventricle is grossly normal size. Doppler measurements suggest impaired left ventricular relaxation, which is associated with grade I/IV or mild diastolic dysfunction Regional wall motion abnormalities cannot be excluded due to limited visualization. The right ventricle is mildly dilated. The right ventricular systolic function is normal. The right atrium is mildly dilated. The left atrium is moderately dilated. There is no mitral valve stenosis. There is a trace amount of mitral regurgitation There is no aortic valve stenosis No aortic regurgitation is present. There is a trace or physiologic amount of tricuspid regurgitation Tricuspid regurgitation jet envelope not well defined to measure RV systolic pressure accurately. The aortic root is not well visualized. The inferior vena cava was not well visualized There is no pericardial effusion. MMode/2D Measurements & Calculations RVDd: 3.3 cm LVIDd: 5.2 cmFS: 40.7 % Ao root diam: 3.2 cm IVSd: 1.2 cm LVIDs: 3.1 cmEDV(Teich): 130.0 ml LVPWd: 1.2 cmESV(Teich): 37.6 ml Ao root area: 8.2 cm2 EF(Teich): 71.1 % LA dimension: 5.0 cm LVOT diam: 2.2 cm LVOT area: 3.9 cm2 Doppler Measurements & Calculations MV E max scout: MV P1/2t max scout: Ao V2 max: LV V1 max P.3 cm/sec 95.3 cm/sec 118.5 cm/sec 3.6 mmHg MV A max scout: MV P1/2t: 77.6 msec Ao max PG: LV V1 max: 58.2 cm/sec MVA(P1/2t): 2.8 cm2 5.7 mmHg 95.3 cm/sec MV E/A: 1.6 MV dec slope: YEHUDA(V,D): 3.1 cm2 359.7 cm/sec2 PA V2 max: TR max scout: 100.2 cm/sec 219.1 cm/sec PA max PG: TR max P.2 mmHg 4.0 mmHg Left Ventricle The left ventricle is grossly normal size. There is mild concentric left ventricular hypertrophy. The left ventricular ejection fraction is normal. Doppler measurements suggest impaired left ventricular relaxation, which is associated with grade I/IV or mild diastolic dysfunction. Regional wall motion abnormalities cannot be excluded due to limited visualization. Right Ventricle The right ventricle is mildly dilated. There is normal right ventricular wall thickness. The right ventricular systolic function is normal. Atria The right atrium is mildly dilated. The left atrium is moderately dilated. Interarterial septum not well visualized and not well dopplered. Cannot comment on ASD/PFO presence. Mitral Valve There is mild mitral leaflet calcification. There is moderate mitral annular calcification. There is no mitral valve stenosis. There is a trace amount of mitral regurgitation. Aortic Valve The aortic valve is mildly calcified. There is no aortic valve stenosis. No aortic regurgitation is present. Tricuspid Valve The tricuspid valve is not well visualized secondary to technical limitations. There is no tricuspid stenosis. There is a trace or physiologic amount of tricuspid regurgitation. Tricuspid regurgitation jet envelope not well defined to measure RV systolic pressure accurately. Pulmonic Valve The pulmonic valve is not well visualized. Great Vessels The aortic root is not well visualized. The inferior vena cava was not well visualized. Effusions There is no pericardial effusion. : ALEJA GARCIA > Catalina Schroeder
[2017-10-08] MEDS: ALBUTEROL SULFATE 0.083% NEB 2.5 MG/3 ML AMPUL NEB PRN (11:18)
[2017-10-08] MEDS ORDERED: ALBUTEROL SULFATE 0.083% NEB 2.5 MG/3 ML AMPUL NEB PRN (12:00)
[2017-10-08] MEDS: SODIUM CHLORIDE 3% FOR INHALATION 15 ML AMPUL NEB SCH ×3 (12:10→20:01)
--- NOTE | 2017-10-08 12:45 | PDOC PROGRESS REPORT ---
Subjective Progress Note for:: 10/08/17 Subjective:: Patient relates that the breathing is bad. He is unable to cough up what is inside his chest. Family to bedside and went over recent results of CTA of the chest as well as echocardiogram. Made aware that anxiety and depression are also playing a role and in agreement. Would prefer to avoid any medications to treat depression. ROS All organ systems evaluated and negative except as in subject All significant laboratories and diagnostics have been reviewed Physical Exam Vital Signs: Temp Pulse Resp BP Pulse Ox 97.7 F 69 20 100/49 L 98 10/08/17 03:12 10/08/17 03:12 10/08/17 03:12 10/08/17 03:12 10/08/17 03:12 Intake & Output 10/06/17 10/07/17 10/08/17 06:59 06:59 06:59 Intake Total 832 2576 3317 Output Total 250 1450 900 Balance 582 1126 2417 Weight 52 kg 62.1 kg 54.2 kg General appearance: PRESENT: cooperative, mild distress, thin Head exam: PRESENT: atraumatic, normocephalic Eye exam: PRESENT: EOMI, PERRLA Ear exam: PRESENT: normal external ear exam Mouth exam: PRESENT: moist, neck supple Neck exam: PRESENT: full ROM. ABSENT: JVD, tenderness, thyromegaly Respiratory exam: PRESENT: crackles - decreased movement of air, wheezes Cardiovascular exam: ABSENT: diastolic murmur - IRRR, systolic murmur GI/Abdominal exam: PRESENT: normal bowel sounds, soft, tenderness Extremities exam: ABSENT: joint swelling, pedal edema Musculoskeletal exam: PRESENT: full ROM Neurological exam: PRESENT: alert, oriented to person, oriented to place, oriented to time Results Laboratory Results: 10/06/17 08:27 10/06/17 08:27 10/07/17 11:00 Carbonic Acid 1.21 HCO3/H2CO3 Ratio 19:1 ABG pH 7.38 ABG pCO2 40.3 ABG pO2 105.4 H ABG HCO3 23.1 ABG O2 Saturation 97.7 ABG Base Excess -1.9 FiO2 3L 10/05/17 21:20 Nasophary (Mrsa Only) MRSA Surveillance Culture - Final NO MRSA RECOVERED 10/06/17 10/06/17 10/06/17 00:18 00:18 08:27 Creatine Kinase 47 L 51 L CK-MB (CK-2) 1.93 Troponin I 0.012 NT-Pro-B Natriuret Pep 10/06/17 10/06/17 10/06/17 08:27 16:37 16:37 Creatine Kinase 34 L CK-MB (CK-2) 2.24 1.99 Troponin I 0.013 < 0.012 NT-Pro-B Natriuret Pep 10/07/17 11:33 Creatine Kinase CK-MB (CK-2) Troponin I NT-Pro-B Natriuret Pep 860 H Impressions: Chest X-Ray 10/05/17 16:34 IMPRESSION: Minimal increased density in the right lung base which could represent atelectatic changes or a minimal infiltrate. Remaining lung hernandez are clear. Again there is evidence for obstructive lung disease. Other findings as noted above. Assessment & Plan - Diagnosis (1) Bronchiectasis Qualifiers: Bronchiectasis type: with acute exacerbation Qualified Code(s): J47.1 - Bronchiectasis with (acute) exacerbation Is this a current diagnosis for this admission?: Yes Plan: To discontinue Zyvox and cefepime IV. Will place on Cipro and Zyvox. CTA obtained show significant mucus plugging which certainly contributing to his persistent complaints of shortness of breath and inability to cough up. Will continue with Mucomyst neb and will add hypertonic saline nebs. Patient encouraged to drink water. Findings of CTA discussed with patient and family present in the room (2) Acute on chronic respiratory failure with hypoxemia Is this a current diagnosis for this admission?: Yes Plan: Patient got anxious which aggravated dyspnea. ABG noted and will decrease oxygen. (3) COPD with acute exacerbation Is this a current diagnosis for this admission?: Yes (4) Atrial fibrillation Qualifiers: Atrial fibrillation type: paroxysmal Qualified Code(s): I48.0 - Paroxysmal atrial fibrillation Is this a current diagnosis for this admission?: Yes Plan: Stable and watch for decompensation since using nebs. Echo results noted (5) HTN (hypertension) Qualifiers: Hypertension type: essential hypertension Qualified Code(s): I10 - Essential (primary) hypertension Is this a current diagnosis for this admission?: Yes Plan: We will adjust regimen since running a bit on the lower side (6) Constipation Is this a current diagnosis for this admission?: Yes Plan: Continue current regimen - Time Time Spent with patient: 25-34 minutes Medications reviewed and adjusted accordingly: Yes Anticipated discharge: Home - Inpatient Certification Based on my medical assessment, after consideration of the patient's comorbidities, presenting symptoms, or acuity I expect that the services needed warrant INPATIENT care.: Yes I certify that my determination is in accordance with my understanding of Medicare's requirements for reasonable and necessary INPATIENT services [42 CFR 412.3e].: Yes Medical Necessity: Need for Nebulizer Therapy and Monitoring of Response, Risk of Complication if Not Cared For in Hospital
[2017-10-08] MEDS: ROFLUMILAST 500 MCG TABLET PO SCH (14:54)
[2017-10-08] MEDS: LINEZOLID 600 MG TABLET PO SCH (21:30)
[2017-10-08] MEDS: CIPROFLOXACIN HCL 500 MG TABLET PO SCH (21:31)
[2017-10-08] MEDS: ATORVASTATIN CALCIUM 80 MG TABLET PO SCH (21:31)
[2017-10-08] MEDS ORDERED: CIPROFLOXACIN HCL 500 MG TABLET PO SCH (22:00)
[2017-10-08] MEDS: HYDROCODONE/ACETAMINOPHEN 7.5-325 MG TABLET PO PRN (22:43)
[2017-10-09] MEDS: IPRATROPIUM/ALBUTEROL 0.5-2.5 MG/3 ML AMPUL NEB SCH ×4 (02:26→20:30)
[2017-10-09] MEDS: GABAPENTIN 300 MG CAPSULE PO SCH ×3 (05:48→22:10)
[2017-10-09] MEDS: HEPARIN SOD (PORCINE) 5,000 UNIT/ML 1 ML SYRINGE SUBCUT SCH ×3 (05:49→22:53)
[2017-10-09] MEDS: METHYLPREDNISOLONE INJ 40 MG/1 ML SDV IV SCH ×3 (05:49→22:53)
[2017-10-09] MEDS: ACETYLCYSTEINE 20% SOLN 800 MG/4 ML VIAL.NEB NEB SCH (07:37)
[2017-10-09] MEDS: SODIUM CHLORIDE 3% FOR INHALATION 15 ML AMPUL NEB SCH ×2 (07:37→11:54)
[2017-10-09] MEDS: LANSOPRAZOLE 30 MG TAB.RAP.DR PO SCH ×2 (09:31→18:03)
[2017-10-09] MEDS: LINEZOLID 600 MG TABLET PO SCH (09:32)
[2017-10-09] MEDS: GUAIFENESIN 600 MG TABLET.SA PO SCH ×2 (09:32→22:11)
[2017-10-09] MEDS: ASPIRIN 325 MG TABLET PO SCH (09:32)
[2017-10-09] MEDS: CIPROFLOXACIN HCL 500 MG TABLET PO SCH ×2 (09:33→22:53)
[2017-10-09] MEDS: TAMSULOSIN HCL 0.4 MG CAP.SR.24H PO SCH (09:33)
[2017-10-09] MEDS: FLUTICASONE/SALMETEROL DISKUS 500-50 MCG/DOSE IH SCH (09:34)
[2017-10-09] MEDS: DIGOXIN 0.125 MG TABLET PO SCH (09:34)
[2017-10-09] MEDS: LACTULOSE SYRUP 20 GM/30 ML UDCUP PO SCH ×2 (09:47→17:04)
[2017-10-09] MEDS: POLYETHYLENE GLYCOL 3350 POWDER 17 GM/1 PACKET PO SCH (09:47)
[2017-10-09] MEDS ORDERED: LEVOFLOXACIN 500 MG TABLET PO SCH (10:00)
--- NOTE | 2017-10-09 10:34 | PDOC PROGRESS REPORT ---
Subjective Progress Note for:: 10/09/17 Subjective:: Mr. Figueroa is an elderly male with severe underlying COPD. The patient also has an extensive cardiac history. In any event he has been starting to feel better slowly. This morning, he did feel worse after he received a nebulizer treatment. When I talked to his nurse about this I think this was in conjunction with receiving the Mucor mist nebulizer as it smelled like rotten eggs. He is receiving benefit with Acapella. Physical Exam Vital Signs: Temp Pulse Resp BP Pulse Ox 97.7 F 65 19 162/56 H 99 10/09/17 07:47 10/09/17 07:47 10/09/17 07:47 10/09/17 07:47 10/09/17 07:47 Intake & Output 10/08/17 10/09/17 10/10/17 06:59 06:59 06:59 Intake Total 3317 363 Output Total 900 1750 Balance 2417 -1387 Weight 54.2 kg Additional comments: The patient is a thin, elderly male. He does not appear to be in any distress. He does not have any audible wheezing. His mentation and cognition are appropriate. His facial appearance is normal. His lungs do demonstrate scattered wheezes. He has decreased air movement and decreased breath sounds throughout all lung hernandez. His cardiac exam is regular. I do not appreciate any murmurs, gallops or rubs. The abdomen is soft and flat. Bowel sounds are present and are noted in the lower quadrants. There is no guarding or rebound present. There are no hernias or masses present. No hepatosplenomegaly is noted. The lower extremities are thin. Skin demonstrates some chronic changes of purpura but is otherwise without any acute lesions or rashes. Skin is clean , warm, dry and intact. Results Laboratory Results: 10/06/17 08:27 10/06/17 08:27 10/06/17 10/06/17 10/06/17 00:18 00:18 08:27 Creatine Kinase 47 L 51 L CK-MB (CK-2) 1.93 Troponin I 0.012 NT-Pro-B Natriuret Pep 10/06/17 10/06/17 10/06/17 08:27 16:37 16:37 Creatine Kinase 34 L CK-MB (CK-2) 2.24 1.99 Troponin I 0.013 < 0.012 NT-Pro-B Natriuret Pep 10/07/17 11:33 Creatine Kinase CK-MB (CK-2) Troponin I NT-Pro-B Natriuret Pep 860 H Impressions: Chest X-Ray 10/05/17 16:34 IMPRESSION: Minimal increased density in the right lung base which could represent atelectatic changes or a minimal infiltrate. Remaining lung hernandez are clear. Again there is evidence for obstructive lung disease. Other findings as noted above. Chest/Abdomen CTA 10/08/17 00:00 IMPRESSION: 1. Chronic changes of COPD. 2. Mucous plugging and infiltrates in the lung bases. 3. No evidence of pulmonary embolus. Assessment & Plan - Diagnosis (1) Bronchiectasis Qualifiers: Bronchiectasis type: with acute exacerbation Qualified Code(s): J47.1 - Bronchiectasis with (acute) exacerbation Is this a current diagnosis for this admission?: Yes (2) Constipation Is this a current diagnosis for this admission?: Yes (3) Acute on chronic respiratory failure with hypoxemia Is this a current diagnosis for this admission?: Yes (4) COPD with acute exacerbation Is this a current diagnosis for this admission?: Yes (5) Pseudomonas pneumonia Qualifiers: Laterality: right Lung location: lower lobe of lung Qualified Code(s): J15.1 - Pneumonia due to Pseudomonas (6) Atrial fibrillation Qualifiers: Atrial fibrillation type: paroxysmal Qualified Code(s): I48.0 - Paroxysmal atrial fibrillation Is this a current diagnosis for this admission?: Yes (7) CAD (coronary artery disease) Qualifiers: Coronary Disease-Associated Artery/Lesion type: [place] artery [place] vs. transplanted heart: [place] heart Associated angina: without angina Qualified Code(s): I25.10 - Atherosclerotic heart disease of [place] coronary artery without angina pectoris (8) HTN (hypertension) Qualifiers: Hypertension type: essential hypertension Qualified Code(s): I10 - Essential (primary) hypertension Is this a current diagnosis for this admission?: Yes - Time Time Spent with patient: 25-34 minutes - Inpatient Certification Medical Necessity: Need Close Monitoring Due to Risk of Patient Decompensation, Need for Nebulizer Therapy and Monitoring of Response - Plan Summary Plan Summary: The patient has advanced lung disease. At this point time his sputum culture is growing Pseudomonas and MRSA. While these could be agents that are colonizing the patient he is receiving Zyvox and ciprofloxacin. I have stopped the Mucomyst as this could aggravate bronchospasm. Hypertonic saline can also aggravate bronchial spasm. He can continue on the Mucinex. He is continuing to receive IV steroids, Advair, Daliresp and nebulizer treatments. I have taken care of this patient in the past. I have explained to the patient that he has very advanced lung disease and he is likely going to get progressively worse over time. The patient does see Dr. Red in the outpatient arena.
[2017-10-09] MEDS: ROFLUMILAST 500 MCG TABLET PO SCH (12:41)
[2017-10-09] MEDS: HYDROCODONE/ACETAMINOPHEN 7.5-325 MG TABLET PO PRN ×2 (14:52→22:11)
[2017-10-09] MEDS: ATORVASTATIN CALCIUM 80 MG TABLET PO SCH (22:53)
[2017-10-10] MEDS: IPRATROPIUM/ALBUTEROL 0.5-2.5 MG/3 ML AMPUL NEB SCH ×4 (02:08→19:44)
[2017-10-10] MEDS: FLUTICASONE/SALMETEROL DISKUS 500-50 MCG/DOSE IH SCH ×3 (05:11→22:10)
[2017-10-10] MEDS: HEPARIN SOD (PORCINE) 5,000 UNIT/ML 1 ML SYRINGE SUBCUT SCH ×3 (06:07→22:09)
[2017-10-10] MEDS: METHYLPREDNISOLONE INJ 40 MG/1 ML SDV IV SCH (06:07)
[2017-10-10] MEDS: GABAPENTIN 300 MG CAPSULE PO SCH ×3 (06:07→22:10)
[2017-10-10] MEDS: LANSOPRAZOLE 30 MG TAB.RAP.DR PO SCH ×2 (06:21→17:45)
[2017-10-10] MEDS: LACTULOSE SYRUP 20 GM/30 ML UDCUP PO SCH ×2 (10:33→17:49)
[2017-10-10] MEDS: ASPIRIN 325 MG TABLET PO SCH (10:33)
[2017-10-10] MEDS: TAMSULOSIN HCL 0.4 MG CAP.SR.24H PO SCH (10:34)
[2017-10-10] MEDS: GUAIFENESIN 600 MG TABLET.SA PO SCH ×2 (10:34→22:10)
[2017-10-10] MEDS: CIPROFLOXACIN HCL 500 MG TABLET PO SCH (10:34)
[2017-10-10] MEDS: POLYETHYLENE GLYCOL 3350 POWDER 17 GM/1 PACKET PO SCH (10:35)
[2017-10-10] MEDS: DIGOXIN 0.125 MG TABLET PO SCH (10:35)
--- NOTE | 2017-10-10 11:50 | PDOC PROGRESS REPORT ---
Subjective Progress Note for:: 10/10/17 Subjective:: The patient is currently hospitalized for COPD with acute exacerbation. He is now stating that he feels better and he thinks he might be ready to go home soon. Yesterday, we stopped the Mucomyst nebulizer treatments which appeared to be exacerbating underlying bronchospasm. The patient appears to have some confusion with how he is supposed to take his bronchodilator medications. I did provide education and counseling this morning in regards to his rescue inhaler and I told him that prior to discharge I want to sit down with both he and his and go over his medication list so that I can explain how he should use his respiratory medications precisely. Also, the patient did not enroll in pulmonary rehab after his last hospitalization. Physical Exam Vital Signs: Temp Pulse Resp BP Pulse Ox 99.3 F 67 18 148/70 H 97 10/10/17 07:44 10/10/17 08:01 10/10/17 08:01 10/10/17 07:44 10/10/17 08:01 Intake & Output 10/09/17 10/10/17 10/11/17 06:59 06:59 06:59 Intake Total 363 458 Output Total 1750 750 Balance -1387 -292 Weight 54 kg Additional comments: The patient appears better today. He does not appear to be significantly tachypneic. His cognition and mentation are appropriate. Today, the patient does appear to have better air excursion. He has mild rhonchi throughout his lung hernandez both anteriorly and posteriorly but this is the clearest I have heard the patient. This relates to this admission and previous admissions when I have taken care of him. His cardiac exam demonstrates a regular rate and rhythm without murmurs, gallops or rubs. The abdomen is noted to be soft and flat. Bowel sounds are present in all 4 quadrants. He does not have guarding, rebound, hernias or masses. The lower extremities are warm and thin. Skin is warm dry and intact without lesions or rashes. Results Laboratory Results: 10/06/17 08:27 10/06/17 08:27 10/06/17 22:00 Sputum Gram Stain - Final 10/06/17 22:00 Sputum Sputum Culture - Final Escherichia Coli C.albicans/C.dubliniensis Greatly Reduced Normal Brittny 10/06/17 10/06/17 10/06/17 00:18 00:18 08:27 Creatine Kinase 47 L 51 L CK-MB (CK-2) 1.93 Troponin I 0.012 NT-Pro-B Natriuret Pep 10/06/17 10/06/17 10/06/17 08:27 16:37 16:37 Creatine Kinase 34 L CK-MB (CK-2) 2.24 1.99 Troponin I 0.013 < 0.012 NT-Pro-B Natriuret Pep 10/07/17 11:33 Creatine Kinase CK-MB (CK-2) Troponin I NT-Pro-B Natriuret Pep 860 H Impressions: Chest X-Ray 10/05/17 16:34 IMPRESSION: Minimal increased density in the right lung base which could represent atelectatic changes or a minimal infiltrate. Remaining lung hernandez are clear. Again there is evidence for obstructive lung disease. Other findings as noted above. Chest/Abdomen CTA 10/08/17 00:00 IMPRESSION: 1. Chronic changes of COPD. 2. Mucous plugging and infiltrates in the lung bases. 3. No evidence of pulmonary embolus. Assessment & Plan - Diagnosis (1) Bronchiectasis Qualifiers: Bronchiectasis type: with acute exacerbation Qualified Code(s): J47.1 - Bronchiectasis with (acute) exacerbation Is this a current diagnosis for this admission?: Yes Plan: Continue pulmonary toilet with the Acapella MC device. (2) Constipation Is this a current diagnosis for this admission?: Yes Plan: She is complaining of mild constipation today. I will reevaluate his bowel regimen. (3) Acute on chronic respiratory failure with hypoxemia Is this a current diagnosis for this admission?: Yes Plan: Improving. Continue supplemental oxygen. (4) COPD with acute exacerbation Is this a current diagnosis for this admission?: Yes Plan: Improving. Switch to p.o. steroids and continue bronchodilators. (5) Pseudomonas pneumonia Qualifiers: Laterality: right Lung location: lower lobe of lung Qualified Code(s): J15.1 - Pneumonia due to Pseudomonas Plan: Currently, respiratory pathogen is E. coli. Will adjust antibiotics. (6) Atrial fibrillation Qualifiers: Atrial fibrillation type: paroxysmal Qualified Code(s): I48.0 - Paroxysmal atrial fibrillation Is this a current diagnosis for this admission?: Yes (7) CAD (coronary artery disease) Qualifiers: Coronary Disease-Associated Artery/Lesion type: [place] artery [place] vs. transplanted heart: [place] heart Associated angina: without angina Qualified Code(s): I25.10 - Atherosclerotic heart disease of [place] coronary artery without angina pectoris (8) HTN (hypertension) Qualifiers: Hypertension type: essential hypertension Qualified Code(s): I10 - Essential (primary) hypertension Is this a current diagnosis for this admission?: Yes - Time Time Spent with patient: 25-34 minutes - Inpatient Certification Medical Necessity: Significant Comorbidiites Make Outpatient Treatment Too Risky , Need Close Monitoring Due to Risk of Patient Decompensation - Plan Summary Plan Summary: The care plan is outlined above. The cardiac issues are stable. I have made no changes to the patient's regimen for atrial fibrillation, coronary artery disease and hypertension. If patient continues to improve I plan on sending him home on oral prednisone with a taper tomorrow. Today, I will also augment his regimen for constipation and give him something for sleep because he is not sleeping well.
[2017-10-10] MEDS ORDERED: BISACODYL 5 MG TABEC PO PRN (11:51)
[2017-10-10] MEDS ORDERED: TEMAZEPAM 15 MG CAPSULE PO PRN (11:51)
[2017-10-10] MEDS ORDERED: BISACODYL 5 MG TABEC PO ONE (12:30)
[2017-10-10] MEDS: ROFLUMILAST 500 MCG TABLET PO SCH (12:57)
[2017-10-10] MEDS ORDERED: DOCUSATE SODIUM 100 MG CAPSULE PO ONE (13:00)
[2017-10-10] MEDS: HYDROCODONE/ACETAMINOPHEN 7.5-325 MG TABLET PO PRN ×2 (13:06→22:10)
[2017-10-10] MEDS: PREDNISONE 20 MG TABLET PO SCH (17:45)
[2017-10-10] MEDS: AMOXICILLIN TR/POT CLAVULANATE 500-125 MG TAB PO SCH (17:46)
[2017-10-10] MEDS: DOCUSATE SODIUM 100 MG CAPSULE PO SCH (17:49)
[2017-10-10] MEDS: ATORVASTATIN CALCIUM 80 MG TABLET PO SCH (22:10)
[2017-10-11] MEDS: IPRATROPIUM/ALBUTEROL 0.5-2.5 MG/3 ML AMPUL NEB SCH ×3 (01:37→13:45)
[2017-10-11] MEDS: GABAPENTIN 300 MG CAPSULE PO SCH ×2 (05:46→14:57)
[2017-10-11] MEDS: HEPARIN SOD (PORCINE) 5,000 UNIT/ML 1 ML SYRINGE SUBCUT SCH ×2 (05:46→14:58)
[2017-10-11 05:56] LABS: ANION GAP 7 (5-19); BLOOD UREA NITROGEN 30 mg/dL (7-20); CALCIUM 8.9 mg/dL (8.4-10.2); CARBON DIOXIDE 28 mmol/L (22-30); CHLORIDE 108 mmol/L (98-107); CREATININE RESULT 0.74 mg/dL (0.52-1.25); GLUCOSE 97 mg/dL (75-110); MAGNESIUM 2.2 mg/dL (1.6-2.3); POTASSIUM 4.8 mmol/L (3.6-5.0); SODIUM 142.9 mmol/L (137-145)
[2017-10-11] MEDS: PREDNISONE 20 MG TABLET PO SCH (09:29)
[2017-10-11] MEDS: GUAIFENESIN 600 MG TABLET.SA PO SCH (09:29)
[2017-10-11] MEDS: DOCUSATE SODIUM 100 MG CAPSULE PO SCH (09:30)
[2017-10-11] MEDS: LACTULOSE SYRUP 20 GM/30 ML UDCUP PO SCH (09:30)
[2017-10-11] MEDS: AMOXICILLIN TR/POT CLAVULANATE 500-125 MG TAB PO SCH ×2 (09:30→12:39)
[2017-10-11] MEDS: ASPIRIN 325 MG TABLET PO SCH (09:30)
[2017-10-11] MEDS: TAMSULOSIN HCL 0.4 MG CAP.SR.24H PO SCH (09:30)
[2017-10-11] MEDS: LANSOPRAZOLE 30 MG TAB.RAP.DR PO SCH (09:30)
[2017-10-11] MEDS: FLUTICASONE/SALMETEROL DISKUS 500-50 MCG/DOSE IH SCH (09:31)
[2017-10-11] MEDS: POLYETHYLENE GLYCOL 3350 POWDER 17 GM/1 PACKET PO SCH (09:31)
[2017-10-11] MEDS: DIGOXIN 0.125 MG TABLET PO SCH (09:31)
[2017-10-11] MEDS: ROFLUMILAST 500 MCG TABLET PO SCH (12:39)
--- NOTE | 2017-10-11 14:15 | PDOC DISCHARGE SUMMARY ---
General - Admit/Disc Date/PCP Admission Date/Primary Care Provider: 10/05/17 18:03 KELLIE BASSETT Discharge Date: 10/11/17 - Discharge Diagnosis (1) Bronchiectasis Is this a current diagnosis for this admission?: Yes (2) Constipation Is this a current diagnosis for this admission?: Yes (3) Acute on chronic respiratory failure with hypoxemia Is this a current diagnosis for this admission?: Yes (4) COPD with acute exacerbation Is this a current diagnosis for this admission?: Yes (6) Atrial fibrillation Is this a current diagnosis for this admission?: Yes (8) HTN (hypertension) Is this a current diagnosis for this admission?: Yes - Additional Information Resuscitation Status: Do Not Resuscitate Discharge Diet: Cardiac Discharge Activity: Balance Activity w/Rest, No Lifting Over 10 Pounds, Walk Frequently Home Medications: Albuterol Sulfate [Proair HFA] 2 puff IH Q4HP PRN 10/05/17 Aspirin [Aspirin 325 mg Tablet] 325 mg PO DAILY 10/05/17 Atorvastatin Calcium [Lipitor 80 mg Tablet] 80 mg PO DAILY 10/05/17 Digoxin [Digox] 125 mcg PO DAILY 10/05/17 Fluticasone/Salmeterol [Advair 250-50 Diskus 28 dose] 1 puff PO Q12 10/05/17 Gabapentin [Neurontin] 600 mg PO Q8 10/05/17 Hydrocodone/Acetaminophen [[place] 7.5-325 Tablet] 1 tab PO TIDP PRN 10/05/17 Metoprolol Succinate [Toprol Xl 25 mg Tab.sr] 25 mg PO DAILY 10/05/17 Nitroglycerin [Nitrostat] 0.4 mg SL Q5MP PRN 10/05/17 Tamsulosin HCl [Flomax 0.4 mg Cap.sr] 0.4 mg PO DAILY 10/05/17 Tiotropium [place] [Spiriva Handihaler 18 mcg/dose (30 Dose)] 1 cap IH DAILY 07/15 Albuterol Sulfate [Ventolin 0.083% Neb 2.5 mg/3 mL Ampul] 2.5 mg NEB RTQ4HP PRN 10 Days #30 vial.neb 10/11/17 Alprazolam [Xanax 0.25 mg Tablet] 0.25 mg PO Q8HP PRN 7 Days #20 tablet Amox Tr/Potassium Clavulanate [Augmentin "500" Tablet] 1 tab PO MEALS 5 Days # 15 tablet 10/11/17 Docusate Sodium [Colace 100 mg Capsule] 100 mg PO BID capsule 10/11/17 Guaifenesin [Mucinex Sr 600 mg Tablet.sa] 1,200 mg PO Q12 tablet.sa 10/11/17 Pantoprazole Sodium 40 mg PO DAILY 30 Days #30 tablet. 10/11/17 Polyethylene Glycol 3350 [Miralax Powder 17 gm/Packet] 17 gm PO DAILY powd.pack 10/11/17 Prednisone [Deltasone 20 mg Tablet] 20 mg PO BID 3 Days #6 tablet 10/11/17 History of Present Illness History of Present Illness: JEAN-PIERRE OLIVAREZ is a 81 year old male who arrived to ED via ambulance after calling 911 since got short of breath all of a sudden. Patient states that going to his car when could not breath. He did not know what to do but to call 911. Patient states that had been battling chest congestion and was seen by Dr Red 2 weeks ago. He was put on 2 different kinds of antibiotics (one is levaquin and the other one cannot remember the name). He was also placed on oxygen which he uses off/on. He is supposed to be on 2 liters. He admits history of COPD. Patient admits having productive cough mostly of white phlegm. He denies fever, chills or chest pain. While in route he was given oxygen with further improvement. He was placed on bipap but gets claustrophobic. Our service was contacted and prompted to admit. Hospital Course Hospital Course: The patient was admitted to the hospital on October 05 with evidence of respiratory distress. Patient has severe COPD. In addition, he has a significant cardiac history. The patient recently had a sputum culture that was showing evidence of Pseudomonas, MRSA and Proteus. Therefore, on admission the patient was placed on cefepime and Zyvox. Sputum culture during this hospitalization demonstrated E. coli. Therefore, the patient will be discharged on a course of Augmentin. While he was here he was receiving cefepime and Zyvox followed by ciprofloxacin. The organism is resistant to ciprofloxacin. The patient also received intravenous steroids followed by oral prednisone. He had an echocardiogram this admission on 10/07/2017. This showed grossly normal LV function. The patient's cardiac issues did not appear to be playing a significant role during this hospitalization. I strongly encouraged pulmonary rehabilitation during this hospitalization. This will be set up through home health. Physical Exam Vital Signs: Temp Pulse Resp BP Pulse Ox 97.8 F 70 16 128/50 H 96 10/11/17 11:11 10/11/17 13:47 10/11/17 13:47 10/11/17 11:11 10/11/17 13:47 Intake & Output 10/10/17 10/11/17 10/12/17 06:59 06:59 06:59 Intake Total 458 1111 400 Output Total 750 1250 350 Balance -292 -139 50 Weight 54 kg 64.042 kg Additional comments: The patient is elderly, frail and thin. He does not appear to be in good health. However, the patient is stable and actually appears to be doing better than on previous occasions. His mentation is appropriate. In terms of his lungs he does have diminished breath sounds throughout but he is not wheezing today. He has a few scattered crackles in the bases of his lungs posteriorly only. His cardiac exam is regular. I do not appreciate any murmurs, gallops or rubs. The abdomen is soft and flat. Bowel sounds are present. He has no guarding or rebound noted. There are no skin lesions or rashes present. Skin is clean, warm, dry and intact. Results Laboratory Results: 10/06/17 08:27 10/11/17 04:52 10/11/17 04:52 Sodium 142.9 Potassium 4.8 Chloride 108 H Carbon Dioxide 28 Anion Gap 7 BUN 30 H Creatinine 0.74 Est GFR ( Amer) > 60 Est GFR (Non-Af Amer) > 60 Glucose 97 Calcium 8.9 Magnesium 2.2 10/06/17 22:00 Sputum Gram Stain - Final 10/06/17 22:00 Sputum Sputum Culture - Final Escherichia Coli C.albicans/C.dubliniensis Greatly Reduced Normal Brittny 10/06/17 10/06/17 10/06/17 00:18 00:18 08:27 Creatine Kinase 47 L 51 L CK-MB (CK-2) 1.93 Troponin I 0.012 NT-Pro-B Natriuret Pep 10/06/17 10/06/17 10/06/17 08:27 16:37 16:37 Creatine Kinase 34 L CK-MB (CK-2) 2.24 1.99 Troponin I 0.013 < 0.012 NT-Pro-B Natriuret Pep 10/07/17 11:33 Creatine Kinase CK-MB (CK-2) Troponin I NT-Pro-B Natriuret Pep 860 H Impressions: Chest X-Ray 10/05/17 16:34 IMPRESSION: Minimal increased density in the right lung base which could represent atelectatic changes or a minimal infiltrate. Remaining lung hernandez are clear. Again there is evidence for obstructive lung disease. Other findings as noted above. Chest/Abdomen CTA 10/08/17 00:00 IMPRESSION: 1. Chronic changes of COPD. 2. Mucous plugging and infiltrates in the lung bases. 3. No evidence of pulmonary embolus. Plan Discharge Plan: 1. Follow-up with primary ambulatory care coordinator in 7-10 days 2. Follow-up with Dr. Red as scheduled 3. Home health will be arranged for in-home pulmonary rehabilitation Time Spent: Greater than 30 Minutes
[2017-10-11 14:38] VITALS: BP 106/44
== END 2017-10-11 15:22 | disposition home health service (06) | DRG 190 ==
LOC: ER 16:14 → EH 18:03 → UNDOADMIN 18:22 → 3N 20:35
PROVIDERS: ADMIT Internal Medicine; ATTEND Internal Medicine
PROC: 5A09357 Assistance with Respiratory Ventilation, Less than 24 Consecutive Hours, Continuous Positive Airway Pressure (ICD-10-PCS; principal; 2017-10-05)
PROC: 3E0F73Z Introduction of Anti-inflammatory into Respiratory Tract, Via Natural or Artificial Opening (ICD-10-PCS; 2017-10-08)
DX: J47.1 Bronchiectasis with (acute) exacerbation (principal); J96.21 Acute and chronic respiratory failure with hypoxia; J44.1 Chronic obstructive pulmonary disease with (acute) exacerbation; K59.00 Constipation, unspecified; I48.0 Paroxysmal atrial fibrillation; I10 Essential (primary) hypertension; B96.5 Pseudomonas (aeruginosa) (mallei) (pseudomallei) as the cause of diseases classified elsewhere; B96.4 Proteus (mirabilis) (morganii) as the cause of diseases classified elsewhere; B95.62 Methicillin resistant Staphylococcus aureus infection as the cause of diseases classified elsewhere; B96.20 Unspecified Escherichia coli [E. coli] as the cause of diseases classified elsewhere; I25.10 Atherosclerotic heart disease of native coronary artery without angina pectoris; K21.9 Gastro-esophageal reflux disease without esophagitis; M19.90 Unspecified osteoarthritis, unspecified site; J15.1 Pneumonia due to Pseudomonas; I25.2 Old myocardial infarction; Z66 Do not resuscitate; Z79.82 Long term (current) use of aspirin; Z79.899 Other long term (current) drug therapy; Z85.828 Personal history of other malignant neoplasm of skin; Z79.1 Long term (current) use of non-steroidal anti-inflammatories (NSAID); Z95.0 Presence of cardiac pacemaker; Z87.891 Personal history of nicotine dependence; Z83.6 Family history of other diseases of the respiratory system; Z80.8 Family history of malignant neoplasm of other organs or systems
CPT/HCPCS: 36415; 36600; 71010; 71275; 80048; 80053; 81001; 82550; 82553; 82803; 83605; 83735; 83880; 84484; 85025; 87040; 87070; 87077; 87186; 87205; 93005; 93010; 93306; 94640; 94660; 99285; J0692; J1644; J2020; J2920; J3490; J7030; J7512; J7620

== ENCOUNTER 2017-12-29 19:08 | Inpatient (IN) | payer MEDICARE, BC ==
[~2017-12-29 19:08] MED LIST: ROCURONIUM BROMIDE INJ 50 MG/5 ML VIAL IV ONE
[2017-12-29] MEDS ORDERED: ETOMIDATE INJ/PF 20 MG/10 ML SDV IV ONE (19:15)
--- NOTE | 2017-12-29 19:23 | ER Document Report ---
ED General - General Mode of Arrival: Stretcher Information source: Emergency Med Personnel TRAVEL OUTSIDE OF THE [place] IN LAST 30 DAYS: No <EDUARDO BRUMFIELD - Last Filed: 12/30/17 03:19> <YESSENIA RAINES - Last Filed: 12/30/17 03:24> - General Chief Complaint: Respiratory Distress Stated Complaint: RESPIRATORY DISTRESS Time Seen by Provider: 12/29/17 19:15 Notes: Patient is an 82 year old male with a history of COPD and pneumonia presents to the emergency department via EMS in respiratory distress. EMS states they believe the patient was having a severe exacerbation of COPD. EMS states upon arrival to the patients home, the patient was able to speak in 3-4 word sentences. Family denies any recent illness with the patient. EMS gave the patient 4 Albuterol, 2 Mag, 3 Epi, and 125 Atrovent Solu-Medrol, Versed, and 2 Atrovent. (EDUARDO BRUMFIELD) - Related Data Allergies/Adverse Reactions: tobramycin Adverse Reaction (Unknown, Verified 10/06/17 01:57) Past Medical History - General Information source: Emergency Med Personnel - Social History Smoking Status: Unknown if Ever Smoked Family History: COPD, Malignancy - Brain tumor - Past Medical History Cardiac Medical History: Reports: Hx Atrial Fibrillation - Aspirin only due to epistaxis with systemic anticoagulation., Hx Coronary Artery Disease, Hx Heart Attack - 08/2009, Hx Hypercholesterolemia, Hx Hypertension Pulmonary Medical History: Reports: Hx COPD, Hx Pneumonia Malignancy Medical History: Reports Hx Skin Cancer GI Medical History: Reports: Hx Gastroesophageal Reflux Disease Musculoskeltal Medical History: Reports Hx Arthritis, Reports Hx Musculoskeletal Trauma Infectious Medical History: Reports: Hx MRSA Past Surgical History: Reports: Hx Appendectomy, Hx Coronary Artery Bypass Graft , Hx Open Heart Surgery, Hx Orthopedic Surgery - back surgery, Hx Pacemaker - Immunizations Immunizations up to date: Yes Hx Diphtheria, Pertussis, Tetanus Vaccination: Yes <EDUARDO BRUMFIELD - Last Filed: 12/30/17 03:19> Review of Systems - Review of Systems -: Yes ROS unobtainable due to patient's medical condition Constitutional: No symptoms reported EENT: No symptoms reported Cardiovascular: No symptoms reported Respiratory: No symptoms reported Gastrointestinal: No symptoms reported Genitourinary: No symptoms reported Male Genitourinary: No symptoms reported Musculoskeletal: No symptoms reported Skin: No symptoms reported Hematologic/Lymphatic: No symptoms reported Neurological/Psychological: No symptoms reported -: Yes All other systems reviewed and negative <EDUARDO BRUMFIELD - Last Filed: 12/30/17 03:19> Physical Exam <EDUARDO BRUMFIELD - Last Filed: 12/30/17 03:19> <YESSENIA RAINES - Last Filed: 12/30/17 03:24> - Vital signs Vitals: Resp 0 L 12/29/17 19:10 - Notes Notes: GENERAL: Drowsy but arousable to voice. In severe respiratory distress. HEAD: Normocephalic, atraumatic. EYES: Appear normal. Pupils equal, round, and reactive to light. ENT: Dry mucus membranes, tongue midline. LUNGS: Tachypneic, hypoxic. Decreased breath sounds, worse on the left. Decreased air movement bilaterally.Wheezing. In respiratory distress. HEART: Regular rate and rhythm. No murmurs, gallops, or rubs. ABDOMEN: Soft, non-tender. Non-distended. Normal bowel sounds. SKIN: Hot, dry, normal turgor. No rashes or lesions noted. (EDUARDO BRUMFIELD) Course - Laboratory Result Diagrams: 12/29/17 19:30 12/29/17 19:30 <EDUARDO BRUMFIELD - Last Filed: 12/30/17 03:19> - Laboratory Result Diagrams: 12/29/17 19:30 12/29/17 19:30 <YESSENIA RAINES - Last Filed: 12/30/17 03:24> - Re-evaluation Re-evalutation: 12/29/17 19:30 Patient is still in respiratory distress though somewhat improved. Pneumonia shown on chest x-ray. Ordered antibiotics. 12/29/17 19:47 Rate of breathing improved. Patient has a temperature of 102, Tylenol will be given rectally. 12/29/17 20:21 Daughter and at bedside and brought DNR papers. Patients work of breathing is better. Family states the patient was sick over the weekend and requested the patient be seen at the doctor on 12/27/2017 but denied. Patient wants to be taken off BiPAP and denies being placed on ventilator. Patient requested a drink , told no. (EDUARDO BRUMFIELD) Patient is an 82-year-old male who comes in with severe respiratory distress. Patient was given 5 nebulizer treatments, Solu-Medrol, and magnesium prior to arrival. He was also given Versed to tolerate CPAP on the way here. Epinephrine was also given subcu. Patient was placed on BiPAP in the emergency department. He has been monitored and his work of breathing has improved. Family states that the patient has not been feeling well for a few days but did not want to come to the emergency department or be seen by his doctor. Patient Is a DNR order with him. When asked if he would want to be intubated patient shakes his head no he would not want to be put on a ventilator. He is much improved from his initial presentation and is asking for something to drink. Patient has been instructed that he will not be drinking anything while he was on the BiPAP because we do not want him to get worse right now. Initial pH and CO2 on blood gas concerning for respiratory failure Patient with bilateral pneumonia on x-ray. Patient was recently admitted 2 months ago and has a history of MRSA pneumonia. He was started on cefepime, vancomycin, and Levaquin. Cultures have been sent. Patient has been discussed with the hospitalist service and will be admitted to the [facility]. He is also been fluid resuscitated for tachycardia, hypotension. He has been given Tylenol for fever. Patient and family agree with this plan. Stable at the time of admission. ( YESSENIA RAINES) - Vital Signs Vital signs: Temp Pulse Resp BP Pulse Ox 97.7 F 99 16 123/56 L 100 12/30/17 00:05 12/30/17 02:04 12/30/17 02:04 12/30/17 00:05 12/30/17 02:04 - Laboratory Laboratory results interpreted by tn: 12/29/17 12/29/17 12/29/17 19:30 19:30 19:30 WBC 19.9 H RBC 4.03 L Hgb 10.4 L Hct 32.3 L MCH 25.8 L RDW 17.0 H Plt Count 621 H Seg Neutrophils % 90.3 H Lymphocytes % 6.5 L Monocytes % 0.8 L Absolute Neutrophils 18.0 H Absolute Basophils 0.3 H VBG pH 7.29 L VBG pCO2 71.2 H* VBG HCO3 33.1 H AST 106 H Alkaline Phosphatase 154 H NT-Pro-B Natriuret Pep Urine Protein 12/29/17 12/29/17 19:30 19:55 WBC RBC Hgb Hct MCH RDW Plt Count Seg Neutrophils % Lymphocytes % Monocytes % Absolute Neutrophils Absolute Basophils VBG pH VBG pCO2 VBG HCO3 AST Alkaline Phosphatase NT-Pro-B Natriuret Pep 2330 H Urine Protein 30 H Critical Care Note - Critical Care Note Total time excluding time spent on procedures (mins): 60 - Evaluation and management of respiratory distress, treatment of pneumonia, treatment of sepsis , multiple re-evaluations, coordination of admission, counseling of patient and family <YESSENIA RAINES - Last Filed: 12/30/17 03:24> Discharge <EDUARDO BRUMFIELD - Last Filed: 12/30/17 03:19> - [facility] Unit Admitted: [facility] <YESSENIA RAINES - Last Filed: 12/30/17 03:24> - Discharge Clinical Impression: COPD with acute exacerbation, Acute on chronic respiratory failure with hypoxemia Pneumonia Qualifiers: Pneumonia type: due to unspecified organism Laterality: bilateral Lung location : lower lobe of lung Qualified Code(s): J18.9 - Pneumonia, unspecified organism Sepsis Qualifiers: Sepsis type: sepsis due to unspecified organism Qualified Code(s): A41.9 - Sepsis, unspecified organism Condition: Stable Disposition: ADMITTED INPATIENT Scribe Attestation: 12/30/17 03:24 I personally performed the services described in the documentation, reviewed and edited the documentation which was dictated to the scribe in my presence, and it accurately records my words and actions. (YESSENIA RAINES) Scribe Documentation - Scribe Written by Eddiibe:: Donovan Wong, 12/29/2017 19:50 acting as scribe for :: Gwyn <EDUARDO BRUMFIELD - Last Filed: 12/30/17 03:19>
[2017-12-29] MEDS ORDERED: VANCOMYCIN HCL INJ 1000 MG VIAL IV ONE (19:30)
[2017-12-29] MEDS ORDERED: CEFEPIME 2 GM/D5W RTU 2 GM/50 ML RTUPB IV ONE (19:30)
[2017-12-29] MEDS ORDERED: ACETAMINOPHEN 325 MG TABLET ONE (19:38)
[2017-12-29] MEDS ORDERED: ACETAMINOPHEN 650 MG SUPP.RECT PR ONE (19:39)
[2017-12-29 19:49] LABS: ABSOLUTE BASOPHILS # (AUTO) 0.3 10^3/uL (0.0-0.2); ABSOLUTE EOSINOPHILS # (AUTO) 0.2 10^3/uL (0.0-0.6); ABSOLUTE LYMPHOCYTES (AUTO) 1.3 10^3/uL (0.5-4.7); ABSOLUTE MONOCYTES (AUTO) 0.2 10^3/uL (0.1-1.4); BASOPHILS % (AUTO) 1.3 % (0-2); EOSINOPHILS % (AUTO) 1.1 % (0-6); HEMATOCRIT 32.3 % (37.9-51.0); HEMOGLOBIN 10.4 g/dL (13.5-17.0); LYMPHOCYTES % (AUTO) 6.5 % (13-45); MEAN CORPUSCULAR HEMOGLOBIN 25.8 pg (27.0-33.4); MEAN CORPUSCULAR HGB CONC 32.2 g/dL (32.0-36.0); MEAN CORPUSCULAR VOLUME 80 fl (80-97); MONOCYTES % (AUTO) 0.8 % (3-13); PLATELET COUNT 621 10^3/uL (150-450); RED BLOOD COUNT 4.03 10^6/uL (4.35-5.55); SEGMENTED NEUTROPHILS % (AUTO) 90.3 % (42-78); TOTAL CELLS COUNTED % (AUTO) 100 %; VENOUS BLOOD BASE EXCESS 4.8 mmol/L; VENOUS BLOOD HCO3 33.1 mmol/L (20-32); VENOUS BLOOD PH 7.29 (7.30-7.42); WHITE BLOOD COUNT 19.9 10^3/uL (4.0-10.5)
[2017-12-29 19:54] LABS: INTERNATIONAL RATION (INR) 1.02; PROTHROMBIN TIME 14.1 SEC (11.4-15.4)
--- NOTE | 2017-12-29 19:57 | RADIOLOGY REPORT (SQ) ---
EXAM DESCRIPTION: CHEST SINGLE VIEW COMPLETED DATE/TIME: 12/29/2017 7:31 pm REASON FOR STUDY: SOB COMPARISON: 10/05/2017 EXAM PARAMETERS: NUMBER OF VIEWS: One view. TECHNIQUE: Single frontal radiographic view of the chest acquired. RADIATION DOSE: NA LIMITATIONS: None. FINDINGS: LUNGS AND PLEURA: Acute dense opacity in the periphery of the right base. Minimal opacity at the left base. No pneumothorax. MEDIASTINUM AND HILAR STRUCTURES: No masses. Contour normal. HEART AND VASCULAR STRUCTURES: Heart normal in size. Normal vasculature. BONES: Sternal wires. HARDWARE: Cardiac stable. OTHER: No other significant finding. IMPRESSION: Bilateral lower lobe pneumonia right greater than left. TECHNICAL DOCUMENTATION: JOB ID: [id number] [employer]- All Rights Reserved
[2017-12-29] MEDS ORDERED: ACETAMINOPHEN 325 MG SUPP.RECT PR ONE (20:01)
[2017-12-29 20:06] LABS: ALANINE AMINOTRANSFERASE 62 U/L (21-72); ALBUMIN 3.7 g/dL (3.5-5.0); ALKALINE PHOSPHATASE 154 U/L (38-126); ANION GAP 9 (5-19); ASPARTATE AMINO TRANSFERASE 106 U/L (17-59); BILIRUBIN,DIRECT 0.4 mg/dL (0.0-0.4); BILIRUBIN,TOTAL 0.4 mg/dL (0.2-1.3); BLOOD UREA NITROGEN 18 mg/dL (7-20); CALCIUM 9.4 mg/dL (8.4-10.2); CARBON DIOXIDE 28 mmol/L (22-30); CHLORIDE 105 mmol/L (98-107); GLUCOSE 96 mg/dL (75-110); POTASSIUM 4.8 mmol/L (3.6-5.0); SODIUM 141.8 mmol/L (137-145)
[2017-12-29 20:18] LABS: TROPONIN I 0.03 ng/mL; VENOUS BLOOD PCO2 71.2 mmHg (35-63)
[2017-12-29] MEDS ORDERED: NORMAL SALINE 1000 ML 1,000 ML IV ONE (20:30)
[2017-12-29 20:42] LABS: APPEARANCE,URINE CLEAR; BILIRUBIN,URINE NEGATIVE (NEGATIVE); COLOR,URINE YELLOW; GLUCOSE, URINE NEGATIVE (NEGATIVE); KETONES,URINE NEGATIVE (NEGATIVE); LEUKOCYTE ESTERASE,URINE NEGATIVE (NEGATIVE); NITRITE,URINE NEGATIVE (NEGATIVE); PROTEIN,URINE 30 mg/dL (NEGATIVE); URINE SPECIFIC GRAVITY 1.011; UROBILINOGEN,URINE NEGATIVE mg/dL (<2.0)
[2017-12-29] MEDS ORDERED: GUAIFENESIN SYRP 200 MG/10 ML UDC PO PRN (21:07)
[2017-12-29] MEDS ORDERED: IPRATROPIUM/ALBUTEROL 0.5-2.5 MG/3 ML AMPUL NEB PRN (21:07)
[2017-12-29] MEDS ORDERED: HYDROCODONE/ACETAMINOPHEN 5-325 MG TABLET PO PRN (21:10)
[2017-12-29] MEDS ORDERED: DILTIAZEM HCL 60 MG TABLET PO ONE (21:13)
[2017-12-29] MEDS ORDERED: VANCOMYCIN HCL 0 MG in DEXTROSE 5%-WATER 250 ML IV NR (21:15)
[2017-12-29] MEDS: DILTIAZEM HCL 60 MG TABLET PO SCH (21:59)
[2017-12-29] MEDS ORDERED: GUAIFENESIN 600 MG TABLET.SA PO SCH (22:00)
[2017-12-29] MEDS ORDERED: LEVOFLOXACIN 750 MG/D5W RTU 750 MG/150 ML RTUPB IV ONE (22:30)
[2017-12-29] MEDS ORDERED: CHLORPHENIRAMINE MALEATE 4 MG TABLET PO ONE (23:00)
[2017-12-29] MEDS: FAMOTIDINE 20 MG TABLET PO SCH (23:04)
[2017-12-29] MEDS: GABAPENTIN 300 MG CAPSULE PO SCH (23:04)
[2017-12-29] MEDS: FLUTICASONE NASAL SPRAY 50 MCG/SPRY 120 SPRAY/16 GM NASL SCH (23:05)
[2017-12-29] MEDS: NORMAL SALINE 1000 ML 1,000 ML IV SCH (23:05)
[2017-12-29] MEDS: ATORVASTATIN CALCIUM 80 MG TABLET PO SCH (23:06)
[2017-12-29] MEDS: HEPARIN SOD (PORCINE) 5,000 UNIT/ML 1 ML SYRINGE SUBCUT SCH (23:06)
[2017-12-30] MEDS: IPRATROPIUM/ALBUTEROL 0.5-2.5 MG/3 ML AMPUL NEB SCH ×4 (02:06→20:10)
[2017-12-30] MEDS: NORMAL SALINE 1000 ML 1,000 ML IV SCH (04:32)
--- NOTE | 2017-12-30 04:43 | PDOC H&P ---
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 Patient presents with 48 hours of shortness of breath nonproductive cough. In the emergency room he is found to have tachypnea, atrial fibrillation with RVR, a right-sided infiltrate suggestive of pneumonia, leukocytosis and referred to the hospitalist for admission. Patient is a poor historian and unable to provide history. Past Medical History Cardiac Medical History: Reports: Atrial Fibrillation - Aspirin only due to epistaxis with systemic anticoagulation., Coronary Artery Disease, Myocardial Infarction - 08/2009, Hyperlipidema, Hypertension Denies: DVT, Pulmonary Embolism Pulmonary Medical History: Reports: Chronic Obstructive Pulmonary Disease (COPD) , Pneumonia Denies: Asthma, Sleep Apnea Neurological Medical History: Denies: Seizures Endocrine Medical History: Denies: Diabetes Mellitus Type 1, Diabetes Mellitus Type 2, Hyperthyroidism, Hypothyroidism Malignancy Medical History: Reports: Skin Cancer GI Medical History: Reports: Gastroesophageal Reflux Disease Denies: Cirrhosis, Hepatitis, Hiatal Hernia Musculoskeltal Medical History: Reports: Arthritis Psychiatric Medical History: Reports: Dementia Denies: Depression Hematology: Denies: Anemia, Sickle Cell Disease Infectious Medical History: Reports: Methicillin-Resistant Staph Aureus Denies: Clostridium Difficile Past Surgical History Past Surgical History: Reports: Appendectomy, Coronary Artery Bypass Graft, Orthopedic Surgery - back surgery, Pacemaker Social History Information Source: Patient, [facility] Records Smoking Status: Unknown if Ever Smoked Frequency of Alcohol Use: None Hx Recreational Drug Use: No Drugs: None Hx Prescription Drug Abuse: No - Advance Directive Resuscitation Status: Do Not Resuscitate Family History Family History: COPD, Malignancy - Brain tumor Parental Family History Reviewed: Yes Children Family History Reviewed: Yes Sibling(s) Family History Reviewed.: Yes Medication/Allergy Home Medications: Albuterol Sulfate [Albuterol Sulfate 2.5mg/3 mL] 1 vial IH Q4 PRN 12/29/17 Aspirin [Aspirin 325 mg Tablet] 325 mg PO DAILY 12/29/17 Atorvastatin Calcium [Lipitor 80 mg Tablet] 80 mg PO QHS 12/29/17 Fluticasone/Salmeterol [Advair 250-50 Diskus 14 Dose/Diskus] 1 inh IH Q12 Gabapentin [Neurontin] 600 mg PO Q8 12/29/17 Hydrocodone/Acetaminophen [Hydrocodon-Acetaminophen 5-325] 1 tab PO Q8 12/29/17 Ipratropium/Albuterol Sulfate [Duoneb 3 ml Ampul] 3 ml NEB RTQ6HP PRN 12/29/17 Ranitidine HCl [Zantac 150 mg Tablet] 150 mg PO BIDACBS 12/29/17 Tamsulosin HCl [Flomax 0.4 mg Cap.sr] 0.4 mg PO DAILY 12/29/17 Tiotropium [place] [Spiriva Handihaler 5 Cap/Kit (18 Mcg/Cap)] 1 cap IH DAILY Allergies/Adverse Reactions: tobramycin Adverse Reaction (Unknown, Verified 10/06/17 01:57) Review of Systems ROS unobtainable: Due to mental status Physical Exam Vital Signs: Temp Pulse Resp BP Pulse Ox 98.0 F 73 18 120/57 L 100 12/30/17 04:16 12/30/17 04:16 12/30/17 04:16 12/30/17 04:16 12/30/17 04:16 Intake & Output 12/28/17 12/29/17 12/30/17 11:59 11:59 11:59 Weight 65.5 kg General appearance: PRESENT: cooperative, mild distress, well-developed, other - Temporal wasting Head exam: PRESENT: atraumatic, normocephalic Eye exam: PRESENT: conjunctiva pink, EOMI, PERRLA. ABSENT: scleral icterus Ear exam: PRESENT: normal external ear exam Mouth exam: PRESENT: moist, tongue midline Neck exam: ABSENT: carotid bruit, JVD, lymphadenopathy, thyromegaly Respiratory exam: PRESENT: accessory muscle use, crackles, prolonged expiratory phas, rales, retraction, rhonchi, tachypnea, wheezes. ABSENT: chest wall tenderness, clear to auscultation alicia Cardiovascular exam: PRESENT: irregular rhythm, +S1, +S2, tachycardia. ABSENT: diastolic murmur, gallop Pulses: PRESENT: normal dorsalis pedis pul Vascular exam: PRESENT: normal capillary refill GI/Abdominal exam: PRESENT: normal bowel sounds, soft. ABSENT: distended, guarding, mass, organolmegaly, rebound, tenderness Rectal exam: PRESENT: deferred Extremities exam: PRESENT: full ROM. ABSENT: calf tenderness, clubbing, pedal edema Neurological exam: PRESENT: alert, awake, oriented to person, CN II-XII grossly intact. ABSENT: motor sensory deficit Psychiatric exam: PRESENT: appropriate affect, normal mood. ABSENT: homicidal ideation, suicidal ideation Skin exam: PRESENT: dry, intact, warm. ABSENT: cyanosis, rash Results Impressions: Chest X-Ray 12/29/17 19:16 IMPRESSION: Bilateral lower lobe pneumonia right greater than left. Assessment & Plan - Diagnosis (1) Acute on chronic respiratory failure with hypoxemia Is this a current diagnosis for this admission?: Yes Plan: Telemetry admission, pneumonia care set, incentive spirometry and flutter valve (2) Pneumonia Qualifiers: Pneumonia type: due to unspecified organism Laterality: bilateral Lung location: lower lobe of lung Qualified Code(s): J18.9 - Pneumonia, unspecified organism Is this a current diagnosis for this admission?: Yes Plan: MRSA history, vancomycin and cefepime ordered. Follow-up culture (3) Sepsis Qualifiers: Sepsis type: sepsis due to unspecified organism Qualified Code(s): A41.9 - Sepsis, unspecified organism Is this a current diagnosis for this admission?: Yes Plan: Secondary to pneumonia complicated by atrial fibrillation and coronary artery disease. IV fluid resuscitation and reevaluation of fluid status. Follow-up CBC and blood culture (4) MRSA pneumonia Is this a current diagnosis for this admission?: Yes Plan: Vancomycin and cefepime ordered. Follow-up culture (5) Atrial fibrillation Qualifiers: Is this a current diagnosis for this admission?: Yes Plan: Dayron Mclaughlin initiated follow-up telemetry. - Time Time Spent: 50 to 70 Minutes - Inpatient Certification Medical Necessity: Need Close Monitoring Due to Risk of Patient Decompensation
[2017-12-30] MEDS: DILTIAZEM HCL 60 MG TABLET PO SCH ×2 (05:34→14:39)
[2017-12-30] MEDS: HEPARIN SOD (PORCINE) 5,000 UNIT/ML 1 ML SYRINGE SUBCUT SCH ×3 (05:34→22:12)
[2017-12-30] MEDS: GABAPENTIN 300 MG CAPSULE PO SCH ×3 (05:36→22:13)
[2017-12-30] MEDS ORDERED: CEFEPIME 2 GM/D5W RTU 2 GM/50 ML RTUPB IV ONE (05:57)
[2017-12-30] MEDS ORDERED: CEFEPIME 2 GM/D5W RTU 2 GM/50 ML RTUPB IV SCH (06:00)
[2017-12-30 06:18] LABS: HEMATOCRIT 30.1 % (37.9-51.0); HEMOGLOBIN 9.6 g/dL (13.5-17.0); MEAN CORPUSCULAR HEMOGLOBIN 25.4 pg (27.0-33.4); MEAN CORPUSCULAR VOLUME 80 fl (80-97); PLATELET COUNT 440 10^3/uL (150-450); RED BLOOD COUNT 3.79 10^6/uL (4.35-5.55); RED CELL DISTRIBUTION WIDTH 16.9 % (11.5-14.0)
[2017-12-30 06:34] LABS: ANION GAP 9 (5-19); BLOOD UREA NITROGEN 19 mg/dL (7-20); CALCIUM 8.8 mg/dL (8.4-10.2); CARBON DIOXIDE 25 mmol/L (22-30); CHLORIDE 108 mmol/L (98-107); GLUCOSE 166 mg/dL (75-110); POTASSIUM 5.2 mmol/L (3.6-5.0); SODIUM 142.1 mmol/L (137-145)
[2017-12-30 06:38] LABS: ABSOLUTE LYMPHOCYTES# (MANUAL) 0.7 10^3/uL (0.5-4.7); ABSOLUTE MONOCYTES # (MANUAL) 0.7 10^3/uL (0.1-1.4); BAND NEUTROPHILS % (MANUAL) 9 % (3-5); BASOPHILS % (MANUAL) 0 % (0-2); EOSINOPHILS % (MANUAL) 0 % (0-6); LYMPHOCYTES % (MANUAL) 2 % (13-45); MONOCYTES % (MANUAL) 2 % (3-13); SEGMENTED NEUTROPHILS % (MAN) 87 % (42-78); TOTAL CELLS COUNTED 100
[2017-12-30 06:40] LABS: ANISOCYTOSIS 1+; BURR CELLS 1+; OVALOCYTES SLIGHT; PLATELET COMMENT ADEQUATE; POIKILOCYTOSIS 1+; POLYCHROMASIA SLIGHT; SCHISTOCYTES SLIGHT; TOXIC GRANULATION 1+; TOXIC VACUOLATION PRESENT; WHITE BLOOD COUNT 33.3 10^3/uL (4.0-10.5)
--- NOTE | 2017-12-30 07:31 | EKG REPORT ---
SEVERITY:- ABNORMAL ECG - ATRIAL FIBRILLATION, V-RATE 109-153 VENTRICULAR PACING PROBABLE INFERIOR INFARCT, AGE INDETERMINATE : Confirmed by: Tima Rendon MD 30-Dec-2017 07:30:29
[2017-12-30] MEDS ORDERED: (PENDING PHARMACY ID) (Ranitidine Hcl [Zantac 150 Mg Tablet] 150 MG) PO SCH (08:00)
[2017-12-30] MEDS: PREDNISONE 20 MG TABLET PO SCH ×2 (09:11→17:23)
[2017-12-30] MEDS: TAMSULOSIN HCL 0.4 MG CAP.SR.24H PO SCH (09:11)
[2017-12-30] MEDS: ASPIRIN 325 MG TABLET PO SCH (09:11)
[2017-12-30] MEDS: FAMOTIDINE 20 MG TABLET PO SCH ×2 (09:11→22:13)
[2017-12-30] MEDS: GUAIFENESIN 600 MG TABLET.SA PO SCH ×2 (09:11→22:13)
[2017-12-30] MEDS: FLUTICASONE NASAL SPRAY 50 MCG/SPRY 120 SPRAY/16 GM NASL SCH ×2 (09:12→22:21)
[2017-12-30] MEDS: VANCOMYCIN HCL 750 MG in DEXTROSE 5%-WATER 250 ML IV SCH ×2 (09:48→22:13)
[2017-12-30 12:54] LABS: PATH REVIEW PATHOLOGIST REVIEWED
[2017-12-30] MEDS: CEFEPIME HCL 2 GM in DEXTROSE 5%-WATER 50 ML IV SCH (17:25)
--- NOTE | 2017-12-30 18:49 | PDOC PROGRESS REPORT ---
Subjective Progress Note for:: 12/30/17 Subjective:: Patient admitted with shortness of breath as well as cough and was found to be tachypneic with a right-sided infiltrate suggestive of pneumonia. He was also found to have atrial fibrillation with rapid ventricular response. He reports feeling better today. He denies any cough and states his breathing is improving. A Reason For Visit: SEPSIS PNEUMONIA, COPD EXACERBATION Physical Exam Vital Signs: Temp Pulse Resp BP Pulse Ox 98.3 F 70 18 94/56 L 100 12/30/17 17:09 12/30/17 17:09 12/30/17 17:09 12/30/17 17:09 12/30/17 17:09 Intake & Output 12/29/17 12/30/17 12/31/17 06:59 06:59 06:59 Intake Total 237 2125 Output Total 280 Balance -43 2125 Weight 70.3 kg General appearance: PRESENT: no acute distress, well-nourished Head exam: PRESENT: atraumatic, normocephalic Eye exam: PRESENT: conjunctiva pink, EOMI, PERRLA. ABSENT: scleral icterus Ear exam: PRESENT: normal external ear exam Mouth exam: PRESENT: moist, tongue midline Neck exam: ABSENT: carotid bruit, JVD, lymphadenopathy, thyromegaly Respiratory exam: PRESENT: crackles, decreased breath sounds. ABSENT: rales, rhonchi, wheezes Cardiovascular exam: PRESENT: RRR. ABSENT: diastolic murmur, rubs, systolic murmur Pulses: PRESENT: normal dorsalis pedis pul Vascular exam: PRESENT: normal capillary refill GI/Abdominal exam: PRESENT: normal bowel sounds, soft. ABSENT: distended, guarding, mass, organolmegaly, rebound, tenderness Rectal exam: PRESENT: deferred Extremities exam: PRESENT: full ROM. ABSENT: calf tenderness, clubbing, pedal edema Neurological exam: PRESENT: alert, awake, oriented to person, oriented to place , oriented to time, oriented to situation, CN II-XII grossly intact. ABSENT: motor sensory deficit Psychiatric exam: PRESENT: appropriate affect, normal mood. ABSENT: homicidal ideation, suicidal ideation Skin exam: PRESENT: dry, intact, warm. ABSENT: cyanosis, rash Results Laboratory Results: 12/30/17 05:08 12/30/17 05:08 12/30/17 12/30/17 05:08 05:08 WBC 33.3 H* RBC 3.79 L Hgb 9.6 L Hct 30.1 L MCV 80 MCH 25.4 L MCHC 32.0 RDW 16.9 H Plt Count 440 Seg Neutrophils % Not Reportable Lymphocytes % Not Reportable Monocytes % Not Reportable Eosinophils % Not Reportable Basophils % Not Reportable Absolute Neutrophils Not Reportable Absolute Lymphocytes Not Reportable Absolute Monocytes Not Reportable Absolute Eosinophils Not Reportable Absolute Basophils Not Reportable Sodium 142.1 Potassium 5.2 H Chloride 108 H Carbon Dioxide 25 Anion Gap 9 BUN 19 Creatinine 0.84 Est GFR ( Amer) > 60 Est GFR (Non-Af Amer) > 60 Glucose 166 H Calcium 8.8 Impressions: Chest X-Ray 12/29/17 19:16 IMPRESSION: Bilateral lower lobe pneumonia right greater than left. Assessment & Plan - Time Time Spent with patient: 15-24 minutes Medications reviewed and adjusted accordingly: Yes Anticipated discharge: Home - Inpatient Certification Medical Necessity: Need for IV Antibiotics, Risk of Complication if Not Cared For in Hospital - Plan Summary Plan Summary: Assessment and plan These are current diagnosis for this admission Acute on chronic respiratory failure with hypoxia and secondary to pneumonia. Patient appears to be clinically improved since admission. Will continue with oxygen support. 2. Pneumonia bilateral effusions specified organism. Patient is on e empiric coverage with vancomycin and cefepime. Will continue with both and de-escalate as appropriate #3 sepsis secondary to pneumonia with tachycardia tachypnea on admission this has since resolved. 4. 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 Atrial fibrillation with rapid ventricular response. His heart rate is currently stable #6 leukocytosis with a white count of 33,000. It was 19.9 yesterday evening. I suspect this may be due to steroids. Patient is not clinically worse so at this time I will continue with the current management and repeat CBC in a.m. #7 mild hyperkalemia will follow
[2017-12-30] MEDS ORDERED: DILTIAZEM HCL 60 MG TABLET PO SCH (18:52)
[2017-12-30] MEDS: DILTIAZEM HCL 30 MG TABLET PO SCH (22:12)
[2017-12-30] MEDS: ATORVASTATIN CALCIUM 80 MG TABLET PO SCH (22:13)
[2017-12-31] MEDS: IPRATROPIUM/ALBUTEROL 0.5-2.5 MG/3 ML AMPUL NEB SCH ×4 (01:49→20:12)
[2017-12-31 05:11] LABS: HEMATOCRIT 26.5 % (37.9-51.0); HEMOGLOBIN 8.5 g/dL (13.5-17.0); MEAN CORPUSCULAR HEMOGLOBIN 25.6 pg (27.0-33.4); MEAN CORPUSCULAR HGB CONC 32.1 g/dL (32.0-36.0); MEAN CORPUSCULAR VOLUME 80 fl (80-97); PLATELET COUNT 399 10^3/uL (150-450); RED BLOOD COUNT 3.33 10^6/uL (4.35-5.55); RED CELL DISTRIBUTION WIDTH 16.8 % (11.5-14.0); WHITE BLOOD COUNT 29.7 10^3/uL (4.0-10.5)
[2017-12-31] MEDS: HEPARIN SOD (PORCINE) 5,000 UNIT/ML 1 ML SYRINGE SUBCUT SCH ×3 (05:15→22:33)
[2017-12-31] MEDS: GABAPENTIN 300 MG CAPSULE PO SCH ×3 (05:15→22:33)
[2017-12-31] MEDS: CEFEPIME HCL 2 GM in DEXTROSE 5%-WATER 50 ML IV SCH ×2 (05:15→18:12)
[2017-12-31] MEDS: DILTIAZEM HCL 30 MG TABLET PO SCH (05:15)
[2017-12-31 05:33] LABS: ABSOLUTE LYMPHOCYTES# (MANUAL) 0.6 10^3/uL (0.5-4.7); ABSOLUTE MONOCYTES # (MANUAL) 0.9 10^3/uL (0.1-1.4); ABSOLUTE NEUTROPHILS# (MANUAL) 28.2 10^3/uL (1.7-8.2); BASOPHILS % (MANUAL) 0 % (0-2); EOSINOPHILS % (MANUAL) 0 % (0-6); LYMPHOCYTES % (MANUAL) 2 % (13-45); MONOCYTES % (MANUAL) 3 % (3-13); SEGMENTED NEUTROPHILS % (MAN) 95 % (42-78); TOTAL CELLS COUNTED 100
[2017-12-31 05:34] LABS: TOXIC GRANULATION SLIGHT; TOXIC VACUOLATION PRESENT
[2017-12-31 05:35] LABS: ANISOCYTOSIS 1+; BURR CELLS SLIGHT; HYPOCHROMASIA SLIGHT; OVALOCYTES SLIGHT; PLATELET COMMENT ADEQUATE; POIKILOCYTOSIS SLIGHT; SCHISTOCYTES SLIGHT
[2017-12-31 05:39] LABS: ANION GAP 9 (5-19); BLOOD UREA NITROGEN 27 mg/dL (7-20); CALCIUM 8.6 mg/dL (8.4-10.2); CARBON DIOXIDE 24 mmol/L (22-30); CHLORIDE 106 mmol/L (98-107); GLUCOSE 123 mg/dL (75-110); POTASSIUM 5.6 mmol/L (3.6-5.0); SODIUM 138.6 mmol/L (137-145)
[2017-12-31] MEDS: ASPIRIN 325 MG TABLET PO SCH (10:55)
[2017-12-31] MEDS: FLUTICASONE NASAL SPRAY 50 MCG/SPRY 120 SPRAY/16 GM NASL SCH ×2 (10:56→22:46)
[2017-12-31] MEDS: FAMOTIDINE 20 MG TABLET PO SCH ×2 (10:56→22:33)
[2017-12-31] MEDS: GUAIFENESIN 600 MG TABLET.SA PO SCH ×2 (10:57→22:33)
[2017-12-31] MEDS: PREDNISONE 20 MG TABLET PO SCH ×2 (10:57→18:07)
[2017-12-31] MEDS: VANCOMYCIN HCL 750 MG in DEXTROSE 5%-WATER 250 ML IV SCH (10:58)
[2017-12-31] MEDS: TAMSULOSIN HCL 0.4 MG CAP.SR.24H PO SCH (10:58)
[2017-12-31] MEDS: HYDROCODONE/ACETAMINOPHEN 5-325 MG TABLET PO PRN (12:41)
[2017-12-31] MEDS ORDERED: SODIUM POLYSTYRENE SULFONATE 15 GM/60 ML PO ONE (16:22)
--- NOTE | 2017-12-31 16:32 | PDOC PROGRESS REPORT ---
Subjective Progress Note for:: 12/31/17 Subjective:: Patient admitted with shortness of breath as well as cough and was found to be tachypneic with a right-sided infiltrate suggestive of pneumonia. He was also found to have atrial fibrillation with rapid ventricular response. Patient reports breathing better Reason For Visit: SEPSIS PNEUMONIA, COPD EXACERBATION Physical Exam Vital Signs: Temp Pulse Resp BP Pulse Ox 97.6 F 77 16 109/43 L 98 12/31/17 11:05 12/31/17 14:05 12/31/17 14:05 12/31/17 11:05 12/31/17 14:05 Intake & Output 12/30/17 12/31/17 01/01/18 06:59 06:59 06:59 Intake Total 237 2825 150 Output Total 280 200 Balance -43 2825 -50 Weight 70.3 kg 74.2 kg General appearance: PRESENT: no acute distress, thin Head exam: PRESENT: atraumatic Eye exam: PRESENT: conjunctiva pink, EOMI, PERRLA. ABSENT: scleral icterus Ear exam: PRESENT: bleeding Mouth exam: PRESENT: dry mucosa Neck exam: ABSENT: carotid bruit, JVD, lymphadenopathy, thyromegaly Respiratory exam: PRESENT: decreased breath sounds, rales, unlabored. ABSENT: wheezes Cardiovascular exam: PRESENT: RRR. ABSENT: diastolic murmur, rubs, systolic murmur Pulses: PRESENT: normal dorsalis pedis pul Vascular exam: PRESENT: normal capillary refill GI/Abdominal exam: PRESENT: normal bowel sounds, soft. ABSENT: distended, guarding, mass, organolmegaly, rebound, tenderness Rectal exam: PRESENT: deferred Extremities exam: PRESENT: full ROM. ABSENT: calf tenderness, clubbing, pedal edema Skin exam: PRESENT: other - Pacemaker on L chest wall Results Laboratory Results: 12/31/17 04:42 12/31/17 04:42 12/31/17 12/31/17 04:42 04:42 WBC 29.7 H RBC 3.33 L Hgb 8.5 L Hct 26.5 L MCV 80 MCH 25.6 L MCHC 32.1 RDW 16.8 H Plt Count 399 Seg Neutrophils % Not Reportable Lymphocytes % Not Reportable Monocytes % Not Reportable Eosinophils % Not Reportable Basophils % Not Reportable Absolute Neutrophils Not Reportable Absolute Lymphocytes Not Reportable Absolute Monocytes Not Reportable Absolute Eosinophils Not Reportable Absolute Basophils Not Reportable Sodium 138.6 Potassium 5.6 H Chloride 106 Carbon Dioxide 24 Anion Gap 9 BUN 27 H Creatinine 0.95 Est GFR ( Amer) > 60 Est GFR (Non-Af Amer) > 60 Glucose 123 H Calcium 8.6 Impressions: Chest X-Ray 12/29/17 19:16 IMPRESSION: Bilateral lower lobe pneumonia right greater than left. Assessment & Plan - Time Time Spent with patient: 15-24 minutes Anticipated discharge: Home Within: within 72 hours - Inpatient Certification Medical Necessity: Need for Nebulizer Therapy and Monitoring of Response, Need for IV Antibiotics - Plan Summary Plan Summary: Assessment and plan These are current diagnosis for this admission 1. Acute on chronic respiratory failure with hypoxia, secondary to pneumonia. Patient continues to clinically improved. Will continue with oxygen support. 2. Pneumonia bilateral, unspecified organism. Patient is on empiric coverage with vancomycin and cefepime. Will continue with both and de-escalate as appropriate #3 sepsis secondary to pneumonia with tachycardia tachypnea, leukocytosis on admission this has since resolved. 4. 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 Atrial fibrillation with rapid ventricular response. His heart rate is currently stable His BP has tended low, will hold Cardizem for nopw and restart as appropriate #6 leukocytosis secondary to sepsis and pneumonia. We will continue to trend #7 mild hyperkalemia will give Kayexalate and recheck in a.m. #8 anemia likely chronic with acute worsening from acute infection. There is no evidence of acute blood loss.
[2017-12-31] MEDS: ATORVASTATIN CALCIUM 80 MG TABLET PO SCH (22:33)
[2017-12-31] MEDS: VANCOMYCIN HCL 1,000 MG in DEXTROSE 5%-WATER 250 ML IV SCH (22:34)
[2018-01-01] MEDS: IPRATROPIUM/ALBUTEROL 0.5-2.5 MG/3 ML AMPUL NEB SCH ×4 (02:16→20:40)
[2018-01-01] MEDS: HEPARIN SOD (PORCINE) 5,000 UNIT/ML 1 ML SYRINGE SUBCUT SCH ×3 (06:05→22:21)
[2018-01-01] MEDS: GABAPENTIN 300 MG CAPSULE PO SCH ×3 (06:05→22:08)
[2018-01-01] MEDS: CEFEPIME HCL 2 GM in DEXTROSE 5%-WATER 50 ML IV SCH ×2 (06:05→17:32)
[2018-01-01 06:08] LABS: HEMATOCRIT 26.2 % (37.9-51.0); HEMOGLOBIN 8.5 g/dL (13.5-17.0); MEAN CORPUSCULAR HEMOGLOBIN 25.6 pg (27.0-33.4); MEAN CORPUSCULAR HGB CONC 32.3 g/dL (32.0-36.0); MEAN CORPUSCULAR VOLUME 79 fl (80-97); PLATELET COUNT 413 10^3/uL (150-450); RED CELL DISTRIBUTION WIDTH 17.2 % (11.5-14.0); WHITE BLOOD COUNT 25.1 10^3/uL (4.0-10.5)
[2018-01-01 06:28] LABS: ANION GAP 8 (5-19); BLOOD UREA NITROGEN 23 mg/dL (7-20); CALCIUM 8.8 mg/dL (8.4-10.2); CARBON DIOXIDE 29 mmol/L (22-30); CHLORIDE 107 mmol/L (98-107); GLUCOSE 117 mg/dL (75-110); POTASSIUM 4.8 mmol/L (3.6-5.0); SODIUM 144.2 mmol/L (137-145)
[2018-01-01 07:06] LABS: ABSOLUTE LYMPHOCYTES# (MANUAL) 0.8 10^3/uL (0.5-4.7); ABSOLUTE MONOCYTES # (MANUAL) 0.8 10^3/uL (0.1-1.4); ABSOLUTE NEUTROPHILS# (MANUAL) 23.6 10^3/uL (1.7-8.2); BASOPHILS % (MANUAL) 0 % (0-2); EOSINOPHILS % (MANUAL) 0 % (0-6); LYMPHOCYTES % (MANUAL) 3 % (13-45); MONOCYTES % (MANUAL) 3 % (3-13); SEGMENTED NEUTROPHILS % (MAN) 94 % (42-78); TOTAL CELLS COUNTED 100
[2018-01-01 07:08] LABS: ANISOCYTOSIS 1+; HYPOCHROMASIA SLIGHT; POIKILOCYTOSIS 1+
[2018-01-01 07:09] LABS: OVALOCYTES 1+
[2018-01-01 07:10] LABS: SCHISTOCYTES 1+; STOMATOCYTES SLIGHT
[2018-01-01 07:11] LABS: PLATELET COMMENT ADEQUATE
[2018-01-01] MEDS: ASPIRIN 325 MG TABLET PO SCH (11:49)
[2018-01-01] MEDS: FAMOTIDINE 20 MG TABLET PO SCH ×2 (11:49→22:08)
[2018-01-01] MEDS: PREDNISONE 20 MG TABLET PO SCH ×2 (11:49→17:31)
[2018-01-01] MEDS: GUAIFENESIN 600 MG TABLET.SA PO SCH ×2 (11:49→22:08)
[2018-01-01] MEDS: TAMSULOSIN HCL 0.4 MG CAP.SR.24H PO SCH (11:49)
[2018-01-01] MEDS: FLUTICASONE NASAL SPRAY 50 MCG/SPRY 120 SPRAY/16 GM NASL SCH ×2 (11:50→22:09)
[2018-01-01] MEDS: VANCOMYCIN HCL 1,000 MG in DEXTROSE 5%-WATER 250 ML IV SCH ×2 (11:50→22:09)
--- NOTE | 2018-01-01 14:12 | PDOC PROGRESS REPORT ---
Subjective Progress Note for:: 01/01/18 Subjective:: Patient admitted with shortness of breath as well as cough and was found to be tachypneic with a right-sided infiltrate suggestive of pneumonia. He was also found to have atrial fibrillation with rapid ventricular response. Patient reports breathing better Reason For Visit: SEPSIS PNEUMONIA, COPD EXACERBATION Physical Exam Vital Signs: Temp Pulse Resp BP Pulse Ox 97.4 F 88 18 90/54 L 99 01/01/18 12:03 01/01/18 12:03 01/01/18 12:03 01/01/18 12:03 01/01/18 12:03 Intake & Output 12/31/17 01/01/18 01/02/18 06:59 06:59 06:59 Intake Total 2825 2275 237 Output Total 1900 Balance 2825 375 237 Weight 74.2 kg 73.3 kg General appearance: PRESENT: no acute distress, well-developed, well-nourished Head exam: PRESENT: atraumatic, normocephalic Eye exam: PRESENT: conjunctiva pink, EOMI, PERRLA. ABSENT: scleral icterus Ear exam: PRESENT: normal external ear exam Mouth exam: PRESENT: moist, tongue midline Neck exam: ABSENT: carotid bruit, JVD, lymphadenopathy, thyromegaly Respiratory exam: PRESENT: clear to auscultation alicia. ABSENT: rales, rhonchi, wheezes Cardiovascular exam: PRESENT: RRR. ABSENT: diastolic murmur, rubs, systolic murmur Pulses: PRESENT: normal dorsalis pedis pul Vascular exam: PRESENT: normal capillary refill GI/Abdominal exam: PRESENT: normal bowel sounds, soft. ABSENT: distended, guarding, mass, organolmegaly, rebound, tenderness Rectal exam: PRESENT: deferred Extremities exam: PRESENT: full ROM. ABSENT: calf tenderness, clubbing, pedal edema Neurological exam: PRESENT: alert, awake, oriented to person, oriented to place , oriented to time, oriented to situation, CN II-XII grossly intact. ABSENT: motor sensory deficit Psychiatric exam: PRESENT: appropriate affect, normal mood. ABSENT: homicidal ideation, suicidal ideation Skin exam: PRESENT: dry, intact, warm. ABSENT: cyanosis, rash Results Laboratory Results: 01/01/18 05:15 01/01/18 05:15 01/01/18 01/01/18 05:15 05:15 WBC 25.1 H RBC 3.30 L Hgb 8.5 L Hct 26.2 L MCV 79 L MCH 25.6 L MCHC 32.3 RDW 17.2 H Plt Count 413 Seg Neutrophils % Not Reportable Lymphocytes % Not Reportable Monocytes % Not Reportable Eosinophils % Not Reportable Basophils % Not Reportable Absolute Neutrophils Not Reportable Absolute Lymphocytes Not Reportable Absolute Monocytes Not Reportable Absolute Eosinophils Not Reportable Absolute Basophils Not Reportable Sodium 144.2 Potassium 4.8 Chloride 107 Carbon Dioxide 29 Anion Gap 8 BUN 23 H Creatinine 0.72 Est GFR ( Amer) > 60 Est GFR (Non-Af Amer) > 60 Glucose 117 H Calcium 8.8 Impressions: Chest X-Ray 12/29/17 19:16 IMPRESSION: Bilateral lower lobe pneumonia right greater than left. Assessment & Plan - Plan Summary Plan Summary: Assessment and plan These are current diagnosis for this admission 1. Acute on chronic respiratory failure with hypoxia, secondary to pneumonia. Resolved 2. Pneumonia bilateral, unspecified organism. Patient is on empiric coverage with vancomycin and cefepime. Continue with both and de-escalate as appropriate #3 sepsis secondary to pneumonia with tachycardia tachypnea, leukocytosis on admission this has since resolved. 4. 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 Atrial fibrillation with rapid ventricular response. His heart rate is currently stable Hold Cardizem for now and restart as appropriate #6 leukocytosis secondary to sepsis and pneumonia. continue to trend #7 mild hyperkalemia - Recheck in am #8 anemia likely chronic with acute worsening from acute infection. There is no evidence of acute blood loss. Will continue to monitor
[2018-01-01] MEDS: ATORVASTATIN CALCIUM 80 MG TABLET PO SCH (22:08)
[2018-01-02] MEDS: IPRATROPIUM/ALBUTEROL 0.5-2.5 MG/3 ML AMPUL NEB SCH ×4 (01:27→19:52)
[2018-01-02 05:56] LABS: HEMATOCRIT 27.1 % (37.9-51.0); HEMOGLOBIN 8.7 g/dL (13.5-17.0); MEAN CORPUSCULAR HEMOGLOBIN 25.6 pg (27.0-33.4); MEAN CORPUSCULAR VOLUME 80 fl (80-97); PLATELET COUNT 417 10^3/uL (150-450); RED BLOOD COUNT 3.38 10^6/uL (4.35-5.55); RED CELL DISTRIBUTION WIDTH 17.4 % (11.5-14.0)
[2018-01-02] MEDS: HEPARIN SOD (PORCINE) 5,000 UNIT/ML 1 ML SYRINGE SUBCUT SCH ×3 (05:56→23:00)
[2018-01-02] MEDS: CEFEPIME HCL 2 GM in DEXTROSE 5%-WATER 50 ML IV SCH ×2 (05:56→18:01)
[2018-01-02] MEDS: GABAPENTIN 300 MG CAPSULE PO SCH ×3 (05:57→23:00)
[2018-01-02 06:18] LABS: ABSOLUTE LYMPHOCYTES# (MANUAL) 1.1 10^3/uL (0.5-4.7); ABSOLUTE MONOCYTES # (MANUAL) 1.1 10^3/uL (0.1-1.4); ABSOLUTE NEUTROPHILS# (MANUAL) 19.8 10^3/uL (1.7-8.2); BASOPHILS % (MANUAL) 0 % (0-2); EOSINOPHILS % (MANUAL) 0 % (0-6); LYMPHOCYTES % (MANUAL) 5 % (13-45); MONOCYTES % (MANUAL) 5 % (3-13); SEGMENTED NEUTROPHILS % (MAN) 90 % (42-78); TOTAL CELLS COUNTED 100
[2018-01-02 06:19] LABS: ANISOCYTOSIS 1+
[2018-01-02 06:20] LABS: POIKILOCYTOSIS 1+
[2018-01-02 06:21] LABS: ANION GAP 6 (5-19); BLOOD UREA NITROGEN 24 mg/dL (7-20); BURR CELLS SLIGHT; CALCIUM 9.5 mg/dL (8.4-10.2); CARBON DIOXIDE 33 mmol/L (22-30); CHLORIDE 105 mmol/L (98-107); GLUCOSE 134 mg/dL (75-110); HYPOCHROMASIA SLIGHT; OVALOCYTES 1+; PLATELET COMMENT ADEQUATE; POLYCHROMASIA SLIGHT; POTASSIUM 4.9 mmol/L (3.6-5.0); SCHISTOCYTES SLIGHT; SODIUM 143.6 mmol/L (137-145); TARGET CELLS SLIGHT; TEAR DROP CELLS SLIGHT
[2018-01-02 06:22] LABS: TOXIC VACUOLATION PRESENT
[2018-01-02 10:33] LABS: VANCOMYCIN,TROUGH 15.3 ug/mL (5.0-20.0)
[2018-01-02] MEDS: FAMOTIDINE 20 MG TABLET PO SCH ×2 (11:08→23:00)
[2018-01-02] MEDS: GUAIFENESIN 600 MG TABLET.SA PO SCH ×2 (11:09→23:00)
[2018-01-02] MEDS: PREDNISONE 20 MG TABLET PO SCH (11:09)
[2018-01-02] MEDS: ASPIRIN 325 MG TABLET PO SCH (11:09)
[2018-01-02] MEDS: FLUTICASONE NASAL SPRAY 50 MCG/SPRY 120 SPRAY/16 GM NASL SCH ×2 (11:10→23:00)
[2018-01-02] MEDS: TAMSULOSIN HCL 0.4 MG CAP.SR.24H PO SCH (11:10)
[2018-01-02] MEDS: VANCOMYCIN HCL 1,000 MG in DEXTROSE 5%-WATER 250 ML IV SCH ×2 (11:11→23:00)
[2018-01-02] MEDS ORDERED: BISACODYL 5 MG TABEC PO PRN (12:27)
[2018-01-02] MEDS ORDERED: POLYETHYLENE GLYCOL 3350 POWDER 17 GM/1 PACKET PO SCH (12:30)
--- NOTE | 2018-01-02 12:37 | PDOC PROGRESS REPORT ---
Subjective Progress Note for:: 01/02/18 Subjective:: Patient admitted with shortness of breath as well as cough and was found to be tachypneic with a right-sided infiltrate suggestive of pneumonia. He was also found to have atrial fibrillation with rapid ventricular response. Patient reports breathing better He c/o constipation otherwise making some progress Reason For Visit: SEPSIS PNEUMONIA, COPD EXACERBATION Physical Exam Vital Signs: Temp Pulse Resp BP Pulse Ox 98.5 F 98 18 148/64 H 100 01/02/18 08:57 01/02/18 08:57 01/02/18 08:57 01/02/18 08:57 01/02/18 08:57 Intake & Output 01/01/18 01/02/18 01/03/18 06:59 06:59 06:59 Intake Total 2275 1727 Output Total 1900 650 Balance 375 1077 Weight 73.3 kg 71.4 kg General appearance: PRESENT: no acute distress, thin - elderly comfortable in no distress Head exam: PRESENT: atraumatic Eye exam: PRESENT: conjunctiva pink, EOMI, PERRLA. ABSENT: scleral icterus Ear exam: PRESENT: normal external ear exam Respiratory exam: PRESENT: decreased breath sounds, rales - bilat basal, rhonchi Cardiovascular exam: PRESENT: RRR, other - PPM on L chest wall. ABSENT: diastolic murmur, rubs, systolic murmur Pulses: PRESENT: normal dorsalis pedis pul GI/Abdominal exam: PRESENT: normal bowel sounds, soft. ABSENT: distended, guarding, mass, organolmegaly, rebound, tenderness Rectal exam: PRESENT: deferred Extremities exam: PRESENT: full ROM. ABSENT: calf tenderness, clubbing, pedal edema Musculoskeletal exam: PRESENT: ambulatory Neurological exam: PRESENT: alert, awake, oriented to person, oriented to place , oriented to time Results Laboratory Results: 01/02/18 05:24 01/02/18 09:43 01/02/18 01/02/18 01/02/18 05:24 05:24 09:43 WBC 22.0 H RBC 3.38 L Hgb 8.7 L Hct 27.1 L MCV 80 MCH 25.6 L MCHC 32.0 RDW 17.4 H Plt Count 417 Seg Neutrophils % Not Reportable Lymphocytes % Not Reportable Monocytes % Not Reportable Eosinophils % Not Reportable Basophils % Not Reportable Absolute Neutrophils Not Reportable Absolute Lymphocytes Not Reportable Absolute Monocytes Not Reportable Absolute Eosinophils Not Reportable Absolute Basophils Not Reportable Sodium 143.6 Potassium 4.9 Chloride 105 Carbon Dioxide 33 H Anion Gap 6 BUN 24 H Creatinine 0.80 0.76 Est GFR ( Amer) > 60 > 60 Est GFR (Non-Af Amer) > 60 > 60 Glucose 134 H Calcium 9.5 Impressions: Chest X-Ray 12/29/17 19:16 IMPRESSION: Bilateral lower lobe pneumonia right greater than left. Assessment & Plan - Diagnosis (1) Acute on chronic respiratory failure with hypoxemia Is this a current diagnosis for this admission?: Yes Plan: Secondary to pneumonia (2) COPD with acute exacerbation Is this a current diagnosis for this admission?: Yes Plan: We will continue to taper steroids as per clinical course (3) Pneumonia Qualifiers: Pneumonia type: due to unspecified organism Laterality: bilateral Lung location: lower lobe of lung Qualified Code(s): J18.9 - Pneumonia, unspecified organism Is this a current diagnosis for this admission?: Yes Plan: Continue his current antibiotics and de-escalate as per response (4) Sepsis Qualifiers: Sepsis type: sepsis due to unspecified organism Qualified Code(s): A41.9 - Sepsis, unspecified organism Is this a current diagnosis for this admission?: Yes Plan: Secondary to pneumonia this is resolving (5) Hyperkalemia Is this a current diagnosis for this admission?: Yes Plan: Etiology is unclear. We will continue to monitor (6) Atrial fibrillation Qualifiers: Atrial fibrillation type: chronic Qualified Code(s): I48.2 - Chronic atrial fibrillation Is this a current diagnosis for this admission?: Yes Plan: His Cardizem had been on hold due to hypotension but his blood pressure seems to be recovering so we will restart his Cardizem at a lower dose - Time Time Spent with patient: 15-24 minutes Medications reviewed and adjusted accordingly: Yes Anticipated discharge: Home Within: within 72 hours - Inpatient Certification Medical Necessity: Need Close Monitoring Due to Risk of Patient Decompensation, Need for IV Antibiotics
[2018-01-02] MEDS ORDERED: DOCUSATE SODIUM 100 MG CAPSULE PO ONE (13:00)
[2018-01-02] MEDS: DILTIAZEM HCL 30 MG TABLET PO SCH ×2 (14:42→23:00)
[2018-01-02] MEDS: ATORVASTATIN CALCIUM 80 MG TABLET PO SCH (23:00)
[2018-01-03] MEDS: IPRATROPIUM/ALBUTEROL 0.5-2.5 MG/3 ML AMPUL NEB SCH ×4 (01:22→20:21)
[2018-01-03] MEDS: CEFEPIME HCL 2 GM in DEXTROSE 5%-WATER 50 ML IV SCH ×2 (06:29→18:49)
[2018-01-03] MEDS: GABAPENTIN 300 MG CAPSULE PO SCH ×3 (06:29→21:29)
[2018-01-03] MEDS: HEPARIN SOD (PORCINE) 5,000 UNIT/ML 1 ML SYRINGE SUBCUT SCH ×3 (06:29→21:28)
[2018-01-03] MEDS: DILTIAZEM HCL 30 MG TABLET PO SCH ×3 (06:29→21:28)
[2018-01-03 07:02] LABS: ABSOLUTE BASOPHILS # (AUTO) 0.1 10^3/uL (0.0-0.2); ABSOLUTE LYMPHOCYTES (AUTO) 2.7 10^3/uL (0.5-4.7); ABSOLUTE MONOCYTES (AUTO) 1.7 10^3/uL (0.1-1.4); ABSOLUTE NEUT (AUTO) 11.9 10^3/uL (1.7-8.2); BASOPHILS % (AUTO) 0.7 % (0-2); EOSINOPHILS % (AUTO) 0.2 % (0-6); HEMATOCRIT 27.5 % (37.9-51.0); HEMOGLOBIN 8.9 g/dL (13.5-17.0); LYMPHOCYTES % (AUTO) 16.3 % (13-45); MEAN CORPUSCULAR HEMOGLOBIN 25.8 pg (27.0-33.4); MEAN CORPUSCULAR HGB CONC 32.2 g/dL (32.0-36.0); MEAN CORPUSCULAR VOLUME 80 fl (80-97); MONOCYTES % (AUTO) 10.1 % (3-13); PLATELET COUNT 432 10^3/uL (150-450); RED BLOOD COUNT 3.43 10^6/uL (4.35-5.55); SEGMENTED NEUTROPHILS % (AUTO) 72.7 % (42-78); TOTAL CELLS COUNTED % (AUTO) 100 %; WHITE BLOOD COUNT 16.4 10^3/uL (4.0-10.5)
[2018-01-03 07:24] LABS: ANION GAP 7 (5-19); BLOOD UREA NITROGEN 22 mg/dL (7-20); CALCIUM 9.5 mg/dL (8.4-10.2); CARBON DIOXIDE 31 mmol/L (22-30); CHLORIDE 104 mmol/L (98-107); GLUCOSE 80 mg/dL (75-110); POTASSIUM 4.4 mmol/L (3.6-5.0); SODIUM 142.1 mmol/L (137-145)
[2018-01-03] MEDS: FAMOTIDINE 20 MG TABLET PO SCH ×2 (09:40→21:28)
[2018-01-03] MEDS: DOCUSATE SODIUM 100 MG CAPSULE PO SCH (09:40)
[2018-01-03] MEDS: PREDNISONE 20 MG TABLET PO SCH (09:40)
[2018-01-03] MEDS: GUAIFENESIN 600 MG TABLET.SA PO SCH ×2 (09:40→21:29)
[2018-01-03] MEDS: ASPIRIN 325 MG TABLET PO SCH (09:40)
[2018-01-03] MEDS: VANCOMYCIN HCL 1,000 MG in DEXTROSE 5%-WATER 250 ML IV SCH ×2 (09:41→21:29)
[2018-01-03] MEDS: FLUTICASONE NASAL SPRAY 50 MCG/SPRY 120 SPRAY/16 GM NASL SCH ×2 (09:41→21:30)
[2018-01-03] MEDS: TAMSULOSIN HCL 0.4 MG CAP.SR.24H PO SCH (09:41)
--- NOTE | 2018-01-03 15:52 | PDOC PROGRESS REPORT ---
Subjective Progress Note for:: 01/03/18 Subjective:: Patient admitted with shortness of breath as well as cough and was found to be tachypneic with a right-sided infiltrate suggestive of pneumonia. He was also found to have atrial fibrillation with rapid ventricular response. Patient reports breathing better No new complaints today Reason For Visit: SEPSIS PNEUMONIA, COPD EXACERBATION Physical Exam Vital Signs: Temp Pulse Resp BP Pulse Ox 97.5 F 77 18 129/72 H 98 01/03/18 12:21 01/03/18 14:00 01/03/18 14:00 01/03/18 12:21 01/03/18 14:00 Intake & Output 01/02/18 01/03/18 01/04/18 06:59 06:59 06:59 Intake Total 1727 1972 450 Output Total 650 900 500 Balance 1077 1072 -50 Weight 71.4 kg 71.4 kg General appearance: PRESENT: no acute distress, thin Head exam: PRESENT: atraumatic Eye exam: PRESENT: conjunctiva pink, EOMI, PERRLA. ABSENT: scleral icterus Mouth exam: PRESENT: moist, tongue midline Respiratory exam: PRESENT: crackles, decreased breath sounds, rales, rhonchi. ABSENT: accessory muscle use, clear to auscultation alicia Cardiovascular exam: PRESENT: bradycardia GI/Abdominal exam: PRESENT: normal bowel sounds, soft. ABSENT: distended, guarding, mass, organolmegaly, rebound, tenderness Rectal exam: PRESENT: deferred Extremities exam: PRESENT: full ROM. ABSENT: calf tenderness, clubbing, pedal edema Neurological exam: PRESENT: alert, awake, oriented to person, oriented to place , oriented to time, oriented to situation, CN II-XII grossly intact. ABSENT: motor sensory deficit Results Laboratory Results: 01/03/18 05:38 01/03/18 05:38 01/03/18 01/03/18 05:38 05:38 WBC 16.4 H RBC 3.43 L Hgb 8.9 L Hct 27.5 L MCV 80 MCH 25.8 L MCHC 32.2 RDW 17.0 H Plt Count 432 Seg Neutrophils % 72.7 Lymphocytes % 16.3 Monocytes % 10.1 Eosinophils % 0.2 Basophils % 0.7 Absolute Neutrophils 11.9 H Absolute Lymphocytes 2.7 Absolute Monocytes 1.7 H Absolute Eosinophils 0.0 Absolute Basophils 0.1 Sodium 142.1 Potassium 4.4 Chloride 104 Carbon Dioxide 31 H Anion Gap 7 BUN 22 H Creatinine 0.77 Est GFR ( Amer) > 60 Est GFR (Non-Af Amer) > 60 Glucose 80 Calcium 9.5 Impressions: Chest X-Ray 12/29/17 19:16 IMPRESSION: Bilateral lower lobe pneumonia right greater than left. Assessment & Plan - Diagnosis (1) Acute on chronic respiratory failure with hypoxemia Is this a current diagnosis for this admission?: Yes Plan: Secondary to pneumonia (2) COPD with acute exacerbation Is this a current diagnosis for this admission?: Yes Plan: Patient continues to improve. continue to taper steroids as per clinical course (3) Pneumonia Qualifiers: Pneumonia type: due to unspecified organism Laterality: bilateral Lung location: lower lobe of lung Qualified Code(s): J18.9 - Pneumonia, unspecified organism Is this a current diagnosis for this admission?: Yes Plan: Continue his current antibiotics and de-escalate as per response (4) Sepsis Qualifiers: Sepsis type: sepsis due to unspecified organism Qualified Code(s): A41.9 - Sepsis, unspecified organism Is this a current diagnosis for this admission?: Yes Plan: Secondary to pneumonia -Resolved (5) Hyperkalemia Is this a current diagnosis for this admission?: Yes Plan: Etiology is unclear. We will continue to monitor (6) Atrial fibrillation Qualifiers: Atrial fibrillation type: chronic Qualified Code(s): I48.2 - Chronic atrial fibrillation Is this a current diagnosis for this admission?: Yes Plan: Cont Cardizem at a lower dose - Time Time Spent with patient: 15-24 minutes Anticipated discharge: Home Within: within 72 hours
[2018-01-03] MEDS: ATORVASTATIN CALCIUM 80 MG TABLET PO SCH (21:28)
[2018-01-04] MEDS: IPRATROPIUM/ALBUTEROL 0.5-2.5 MG/3 ML AMPUL NEB SCH ×4 (02:32→20:24)
[2018-01-04] MEDS: CEFEPIME HCL 2 GM in DEXTROSE 5%-WATER 50 ML IV SCH ×2 (05:44→18:35)
[2018-01-04] MEDS: HEPARIN SOD (PORCINE) 5,000 UNIT/ML 1 ML SYRINGE SUBCUT SCH ×3 (05:44→21:36)
[2018-01-04] MEDS: GABAPENTIN 300 MG CAPSULE PO SCH ×3 (05:44→21:37)
[2018-01-04] MEDS: DILTIAZEM HCL 30 MG TABLET PO SCH ×3 (05:44→21:36)
[2018-01-04 06:02] LABS: HEMATOCRIT 28.1 % (37.9-51.0); HEMOGLOBIN 9.2 g/dL (13.5-17.0); MEAN CORPUSCULAR HEMOGLOBIN 25.8 pg (27.0-33.4); MEAN CORPUSCULAR HGB CONC 32.6 g/dL (32.0-36.0); MEAN CORPUSCULAR VOLUME 79 fl (80-97); PLATELET COUNT 428 10^3/uL (150-450); RED BLOOD COUNT 3.56 10^6/uL (4.35-5.55); RED CELL DISTRIBUTION WIDTH 17.3 % (11.5-14.0); WHITE BLOOD COUNT 14.4 10^3/uL (4.0-10.5)
[2018-01-04] MEDS ORDERED: PREDNISONE 20 MG TABLET PO SCH (10:00)
[2018-01-04] MEDS: ASPIRIN 325 MG TABLET PO SCH (10:51)
[2018-01-04] MEDS: TAMSULOSIN HCL 0.4 MG CAP.SR.24H PO SCH (10:52)
[2018-01-04] MEDS: DOCUSATE SODIUM 100 MG CAPSULE PO SCH (10:52)
[2018-01-04] MEDS: GUAIFENESIN 600 MG TABLET.SA PO SCH ×2 (10:52→21:38)
[2018-01-04] MEDS: VANCOMYCIN HCL 1,000 MG in DEXTROSE 5%-WATER 250 ML IV SCH ×2 (10:52→21:37)
[2018-01-04] MEDS: FAMOTIDINE 20 MG TABLET PO SCH ×2 (10:52→21:37)
[2018-01-04] MEDS: FLUTICASONE NASAL SPRAY 50 MCG/SPRY 120 SPRAY/16 GM NASL SCH ×2 (10:52→21:41)
--- NOTE | 2018-01-04 12:55 | PDOC PROGRESS REPORT ---
Subjective Progress Note for:: 01/04/18 Subjective:: Patient admitted with shortness of breath as well as cough and was found to be tachypneic with a right-sided infiltrate suggestive of pneumonia. He was also found to have atrial fibrillation with rapid ventricular response. Patient reports breathing better No new complaints today. He is recovering well and ambulating Reason For Visit: SEPSIS PNEUMONIA, COPD EXACERBATION Physical Exam Vital Signs: Temp Pulse Resp BP Pulse Ox 98.1 F 84 20 127/59 H 94 01/04/18 08:00 01/04/18 08:03 01/04/18 08:03 01/04/18 08:00 01/04/18 08:03 Intake & Output 01/03/18 01/04/18 01/05/18 06:59 06:59 06:59 Intake Total 1972 2655 Output Total 900 2375 Balance 1072 280 Weight 71.4 kg 72.3 kg General appearance: PRESENT: no acute distress, thin - Elderly but comfortable Head exam: PRESENT: atraumatic Eye exam: PRESENT: conjunctiva pink, EOMI, PERRLA. ABSENT: scleral icterus Ear exam: PRESENT: normal external ear exam Respiratory exam: PRESENT: decreased breath sounds, rhonchi - Few scattered. ABSENT: accessory muscle use, tachypnea, unlabored, wheezes Cardiovascular exam: PRESENT: RRR, other - Pacemaker and chest wall. ABSENT: diastolic murmur, rubs, systolic murmur GI/Abdominal exam: PRESENT: normal bowel sounds, soft. ABSENT: distended, guarding, mass, organolmegaly, rebound, tenderness Rectal exam: PRESENT: deferred Neurological exam: PRESENT: alert, awake, oriented to person, oriented to place , oriented to time, oriented to situation, CN II-XII grossly intact. ABSENT: motor sensory deficit Results Laboratory Results: 01/04/18 05:22 01/03/18 05:38 01/04/18 05:22 WBC 14.4 H RBC 3.56 L Hgb 9.2 L Hct 28.1 L MCV 79 L MCH 25.8 L MCHC 32.6 RDW 17.3 H Plt Count 428 12/29/17 21:30 Blood Blood Culture - Final NO GROWTH IN 5 DAYS Impressions: Chest X-Ray 12/29/17 19:16 IMPRESSION: Bilateral lower lobe pneumonia right greater than left. Assessment & Plan - Diagnosis (1) Acute on chronic respiratory failure with hypoxemia Is this a current diagnosis for this admission?: Yes Plan: Secondary to pneumonia Patient seems to be recovering pretty well. He is back on his chronic 2 L of oxygen and ambulating with no issues (2) COPD with acute exacerbation Is this a current diagnosis for this admission?: Yes Plan: Patient continues to improve. Prednisone is down to 10 mg and this can be discontinued prior to discharge (3) Pneumonia Qualifiers: Pneumonia type: due to unspecified organism Laterality: bilateral Lung location: lower lobe of lung Qualified Code(s): J18.9 - Pneumonia, unspecified organism Is this a current diagnosis for this admission?: Yes Plan: Patient is on day 6 of cefepime and I will suggest that with complete 7 days tomorrow after which patient can be discharged hopefully on January 06. I will discontinue vancomycin today after a full 5 day course. (4) Sepsis Qualifiers: Sepsis type: sepsis due to unspecified organism Qualified Code(s): A41.9 - Sepsis, unspecified organism Is this a current diagnosis for this admission?: Yes Plan: Secondary to pneumonia -Resolved (5) Hyperkalemia Is this a current diagnosis for this admission?: Yes Plan: Etiology is unclear. We will continue to monitor (6) Atrial fibrillation Qualifiers: Atrial fibrillation type: chronic Qualified Code(s): I48.2 - Chronic atrial fibrillation Is this a current diagnosis for this admission?: Yes Plan: Cont Cardizem and adjust as needed. I have started him on 30mg q8h and this can be adjusted as needed - Time Time Spent with patient: 15-24 minutes Medications reviewed and adjusted accordingly: Yes Anticipated discharge: Home Within: within 48 hours
[2018-01-04] MEDS: ATORVASTATIN CALCIUM 80 MG TABLET PO SCH (21:37)
[2018-01-05] MEDS: IPRATROPIUM/ALBUTEROL 0.5-2.5 MG/3 ML AMPUL NEB SCH ×4 (02:21→19:55)
[2018-01-05] MEDS: HEPARIN SOD (PORCINE) 5,000 UNIT/ML 1 ML SYRINGE SUBCUT SCH ×3 (05:02→21:18)
[2018-01-05] MEDS: GABAPENTIN 300 MG CAPSULE PO SCH ×3 (05:02→21:18)
[2018-01-05] MEDS: DILTIAZEM HCL 30 MG TABLET PO SCH ×3 (05:02→21:18)
[2018-01-05] MEDS: CEFEPIME HCL 2 GM in DEXTROSE 5%-WATER 50 ML IV SCH ×2 (05:03→17:35)
[2018-01-05] MEDS: HYDROCODONE/ACETAMINOPHEN 5-325 MG TABLET PO PRN (08:43)
[2018-01-05] MEDS: FAMOTIDINE 20 MG TABLET PO SCH ×2 (09:34→21:18)
[2018-01-05] MEDS: DOCUSATE SODIUM 100 MG CAPSULE PO SCH (09:35)
[2018-01-05] MEDS: ASPIRIN 325 MG TABLET PO SCH (09:35)
[2018-01-05] MEDS: TAMSULOSIN HCL 0.4 MG CAP.SR.24H PO SCH (09:35)
[2018-01-05] MEDS: FLUTICASONE NASAL SPRAY 50 MCG/SPRY 120 SPRAY/16 GM NASL SCH ×2 (09:36→21:21)
[2018-01-05] MEDS: GUAIFENESIN 600 MG TABLET.SA PO SCH ×2 (09:36→21:18)
[2018-01-05] MEDS: PREDNISONE 20 MG TABLET PO SCH (09:36)
--- NOTE | 2018-01-05 18:11 | PDOC PROGRESS REPORT ---
Subjective Progress Note for:: 01/05/18 Subjective:: She states he is breathing better. Patient states he has not had a bowel movement. Patient states that he is still wheezing. Reason For Visit: SEPSIS PNEUMONIA, COPD EXACERBATION Physical Exam Vital Signs: Temp Pulse Resp BP Pulse Ox 98.8 F 91 20 93/51 L 95 01/05/18 16:00 01/05/18 16:00 01/05/18 16:00 01/05/18 16:00 01/05/18 16:00 Intake & Output 01/04/18 01/05/18 01/06/18 06:59 06:59 06:59 Intake Total 2655 1360 337 Output Total 2375 1350 500 Balance 280 10 -163 Weight 72.3 kg 74 kg General appearance: PRESENT: no acute distress, well-developed, well-nourished Head exam: PRESENT: atraumatic, normocephalic Eye exam: PRESENT: conjunctiva pink, EOMI. ABSENT: scleral icterus Ear exam: PRESENT: normal external ear exam Mouth exam: PRESENT: moist, tongue midline Neck exam: ABSENT: carotid bruit, JVD, lymphadenopathy, thyromegaly Respiratory exam: PRESENT: accessory muscle use, prolonged expiratory phas, wheezes Cardiovascular exam: PRESENT: RRR. ABSENT: diastolic murmur, rubs, systolic murmur Pulses: PRESENT: normal dorsalis pedis pul Vascular exam: PRESENT: normal capillary refill GI/Abdominal exam: PRESENT: normal bowel sounds, soft. ABSENT: distended, guarding, mass, organolmegaly, rebound, tenderness Rectal exam: PRESENT: deferred Extremities exam: PRESENT: full ROM. ABSENT: calf tenderness, clubbing, pedal edema Neurological exam: PRESENT: alert, awake, oriented to person, oriented to place , oriented to time, oriented to situation, CN II-XII grossly intact. ABSENT: motor sensory deficit Psychiatric exam: PRESENT: appropriate affect, normal mood. ABSENT: homicidal ideation, suicidal ideation Skin exam: PRESENT: dry, intact, warm. ABSENT: cyanosis, rash Results Laboratory Results: 01/04/18 05:22 01/03/18 05:38 Impressions: Chest X-Ray 12/29/17 19:16 IMPRESSION: Bilateral lower lobe pneumonia right greater than left. Assessment & Plan - Diagnosis (1) Acute on chronic respiratory failure with hypoxemia Is this a current diagnosis for this admission?: Yes Plan: Secondary to pneumonia community-acquired and COPD exacerbation: Resolving. Patient is breathing much better. (2) COPD with acute exacerbation Is this a current diagnosis for this admission?: Yes Plan: We will continue breathing treatments and steroids. (3) Pneumonia Qualifiers: Pneumonia type: due to unspecified organism Laterality: bilateral Lung location: lower lobe of lung Qualified Code(s): J18.9 - Pneumonia, unspecified organism Is this a current diagnosis for this admission?: Yes Plan: Pt completed antibiotic treatment. (4) Sepsis Qualifiers: Sepsis type: sepsis due to unspecified organism Qualified Code(s): A41.9 - Sepsis, unspecified organism Is this a current diagnosis for this admission?: Yes Plan: Secondary to community-acquired pneumonia: Resolved. (5) Hyperkalemia Is this a current diagnosis for this admission?: Yes Plan: Resolved. (6) Atrial fibrillation Qualifiers: Atrial fibrillation type: chronic Qualified Code(s): I48.2 - Chronic atrial fibrillation Is this a current diagnosis for this admission?: Yes Plan: Will continue Cardizem 30mg Q8h (7) Constipation Is this a current diagnosis for this admission?: Yes Plan: Give enema (8) Anemia Is this a current diagnosis for this admission?: Yes Plan: Etiology currently unclear we will have to discuss with patient about workup for anemia. Will do iron studies and check stools. - Time Time Spent with patient: 25-34 minutes
[2018-01-05] MEDS: ATORVASTATIN CALCIUM 80 MG TABLET PO SCH (21:18)
[2018-01-06] MEDS: IPRATROPIUM/ALBUTEROL 0.5-2.5 MG/3 ML AMPUL NEB SCH ×4 (01:41→19:57)
[2018-01-06 06:08] LABS: ABSOLUTE EOSINOPHILS # (AUTO) 0.4 10^3/uL (0.0-0.6); ABSOLUTE LYMPHOCYTES (AUTO) 3.1 10^3/uL (0.5-4.7); ABSOLUTE MONOCYTES (AUTO) 2.3 10^3/uL (0.1-1.4); ABSOLUTE NEUT (AUTO) 8.5 10^3/uL (1.7-8.2); ABSOLUTE RETICS # 0.079 10^6/uL (0.028-0.122); BASOPHILS % (AUTO) 0.2 % (0-2); EOSINOPHILS % (AUTO) 2.9 % (0-6); HEMATOCRIT 27.5 % (37.9-51.0); HEMOGLOBIN 8.8 g/dL (13.5-17.0); LYMPHOCYTES % (AUTO) 21.9 % (13-45); MEAN CORPUSCULAR HEMOGLOBIN 25.2 pg (27.0-33.4); MEAN CORPUSCULAR HGB CONC 31.9 g/dL (32.0-36.0); MEAN CORPUSCULAR VOLUME 79 fl (80-97); MONOCYTES % (AUTO) 15.7 % (3-13); PLATELET COUNT 410 10^3/uL (150-450); RED BLOOD COUNT 3.48 10^6/uL (4.35-5.55); RED CELL DISTRIBUTION WIDTH 17.4 % (11.5-14.0); RETICULOCYTE COUNT (AUTO) 2.27 % (0.66-2.85); SEGMENTED NEUTROPHILS % (AUTO) 59.3 % (42-78); TOTAL CELLS COUNTED % (AUTO) 100 %; WHITE BLOOD COUNT 14.4 10^3/uL (4.0-10.5)
[2018-01-06 06:25] LABS: ALANINE AMINOTRANSFERASE 31 U/L (21-72); ALBUMIN 2.8 g/dL (3.5-5.0); ALKALINE PHOSPHATASE 88 U/L (38-126); ANION GAP 7 (5-19); ASPARTATE AMINO TRANSFERASE 17 U/L (17-59); BILIRUBIN,DIRECT 0.1 mg/dL (0.0-0.4); BILIRUBIN,TOTAL 0.3 mg/dL (0.2-1.3); BLOOD UREA NITROGEN 21 mg/dL (7-20); CARBON DIOXIDE 33 mmol/L (22-30); CHLORIDE 102 mmol/L (98-107); GLUCOSE 81 mg/dL (75-110); IRON(TIBC) 20.3 ug/dL (49-181); POTASSIUM 4.6 mmol/L (3.6-5.0); SODIUM 141.9 mmol/L (137-145); TOTAL PROTEIN 5.4 g/dL (6.3-8.2)
[2018-01-06] MEDS: DILTIAZEM HCL 30 MG TABLET PO SCH ×3 (06:25→21:39)
[2018-01-06] MEDS: GABAPENTIN 300 MG CAPSULE PO SCH ×3 (06:26→21:29)
[2018-01-06] MEDS: HEPARIN SOD (PORCINE) 5,000 UNIT/ML 1 ML SYRINGE SUBCUT SCH ×2 (06:28→14:18)
[2018-01-06 07:34] LABS: FOLATE 4.59 ng/mL (>2.76)
[2018-01-06] MEDS: DOCUSATE SODIUM 100 MG CAPSULE PO SCH (11:28)
[2018-01-06] MEDS: ASPIRIN 325 MG TABLET PO SCH (11:28)
[2018-01-06] MEDS: PREDNISONE 20 MG TABLET PO SCH (11:29)
[2018-01-06] MEDS: GUAIFENESIN 600 MG TABLET.SA PO SCH ×2 (11:29→21:30)
[2018-01-06] MEDS: FAMOTIDINE 20 MG TABLET PO SCH ×2 (11:30→21:30)
[2018-01-06] MEDS: FLUTICASONE NASAL SPRAY 50 MCG/SPRY 120 SPRAY/16 GM NASL SCH ×2 (11:30→21:31)
[2018-01-06] MEDS: TAMSULOSIN HCL 0.4 MG CAP.SR.24H PO SCH (11:30)
[2018-01-06] MEDS ORDERED: NORMAL SALINE 1000 ML 500 ML IV ONE (20:14)
[2018-01-06] MEDS ORDERED: IPRATROPIUM/ALBUTEROL 0.5-2.5 MG/3 ML AMPUL NEB PRN (20:15)
--- NOTE | 2018-01-06 20:23 | PDOC PROGRESS REPORT ---
Subjective Progress Note for:: 01/06/18 Subjective:: Patient states that his breathing is better. Patient states that he had a large bowel movement yesterday. Patient states that he has been able to get up and ambulate around room however he would like to be more active. Reason For Visit: SEPSIS PNEUMONIA, COPD EXACERBATION Physical Exam Vital Signs: Temp Pulse Resp BP Pulse Ox 98.7 F 111 H 18 95/64 L 98 01/06/18 17:22 01/06/18 19:57 01/06/18 19:57 01/06/18 17:22 01/06/18 19:57 Intake & Output 01/05/18 01/06/18 01/07/18 06:59 06:59 06:59 Intake Total 1360 1443 588 Output Total 1350 1700 850 Balance 10 -257 -262 Weight 74 kg 73.1 kg General appearance: PRESENT: no acute distress, thin, well-developed Head exam: PRESENT: atraumatic, normocephalic Eye exam: PRESENT: conjunctiva pink, EOMI. ABSENT: scleral icterus Ear exam: PRESENT: normal external ear exam Mouth exam: PRESENT: moist, tongue midline Neck exam: ABSENT: carotid bruit, JVD, lymphadenopathy, thyromegaly Respiratory exam: PRESENT: accessory muscle use, wheezes - Scant wheezing. ABSENT: rales, rhonchi Cardiovascular exam: PRESENT: RRR. ABSENT: diastolic murmur, rubs, systolic murmur Pulses: PRESENT: normal dorsalis pedis pul Vascular exam: PRESENT: normal capillary refill GI/Abdominal exam: PRESENT: normal bowel sounds, soft. ABSENT: distended, guarding, mass, organolmegaly, rebound, tenderness Rectal exam: PRESENT: deferred Extremities exam: PRESENT: full ROM. ABSENT: calf tenderness, clubbing, pedal edema Musculoskeletal exam: PRESENT: full ROM Neurological exam: PRESENT: alert, awake, oriented to person, oriented to place , oriented to time, oriented to situation, CN II-XII grossly intact. ABSENT: motor sensory deficit Psychiatric exam: PRESENT: appropriate affect, normal mood. ABSENT: homicidal ideation, suicidal ideation Skin exam: PRESENT: dry, intact, warm. ABSENT: cyanosis, rash Results Laboratory Results: 01/06/18 05:41 01/06/18 05:41 02/08/18 02/08/18 05:41 05:41 WBC 14.4 H RBC 3.48 L Hgb 8.8 L Hct 27.5 L MCV 79 L MCH 25.2 L MCHC 31.9 L RDW 17.4 H Plt Count 410 Seg Neutrophils % 59.3 Lymphocytes % 21.9 Monocytes % 15.7 H Eosinophils % 2.9 Basophils % 0.2 Absolute Neutrophils 8.5 H Absolute Lymphocytes 3.1 Absolute Monocytes 2.3 H Absolute Eosinophils 0.4 Absolute Basophils 0.0 Retic Count (auto) 2.27 Absolute Retic 0.079 Sodium 141.9 Potassium 4.6 Chloride 102 Carbon Dioxide 33 H Anion Gap 7 BUN 21 H Creatinine 0.69 Est GFR ( Amer) > 60 Est GFR (Non-Af Amer) > 60 Glucose 81 Calcium 9.0 Iron 20.3 L TIBC 276 % Saturation 7 Ferritin 25.40 Total Bilirubin 0.3 AST 17 ALT 31 Alkaline Phosphatase 88 Total Protein 5.4 L Albumin 2.8 L Vitamin B12 431.0 Folate 4.59 Impressions: Chest X-Ray 12/29/17 19:16 IMPRESSION: Bilateral lower lobe pneumonia right greater than left. Assessment & Plan - Diagnosis (1) Acute on chronic respiratory failure with hypoxemia Is this a current diagnosis for this admission?: Yes Plan: Secondary to pneumonia community-acquired gram-negative and COPD exacerbation: Resolving. Patient is breathing much better. (2) COPD with acute exacerbation Is this a current diagnosis for this admission?: Yes Plan: We will space breathing treatments this evening.. (3) Pneumonia Qualifiers: Pneumonia type: due to unspecified organism Laterality: bilateral Lung location: lower lobe of lung Qualified Code(s): J18.9 - Pneumonia, unspecified organism Is this a current diagnosis for this admission?: Yes Plan: Secondary to gram-positive organism: Pt completed antibiotic treatment. (4) Sepsis Qualifiers: Sepsis type: sepsis due to unspecified organism Qualified Code(s): A41.9 - Sepsis, unspecified organism Is this a current diagnosis for this admission?: Yes Plan: Secondary to community-acquired pneumonia: Resolved. (5) Hyperkalemia Is this a current diagnosis for this admission?: Yes Plan: Resolved. (6) Atrial fibrillation Qualifiers: Atrial fibrillation type: chronic Qualified Code(s): I48.2 - Chronic atrial fibrillation Is this a current diagnosis for this admission?: Yes Plan: Will continue Cardizem 30mg Q8h (7) Constipation Is this a current diagnosis for this admission?: Yes Plan: Resolved (8) Anemia Is this a current diagnosis for this admission?: Yes Plan: Iron deficiency anemia: We will give iron replacement. Occult stool pending - Time Time Spent with patient: 25-34 minutes
[2018-01-06] MEDS ORDERED: NORMAL SALINE 500 ML IV ONE (21:00)
[2018-01-06] MEDS: ATORVASTATIN CALCIUM 80 MG TABLET PO SCH (21:30)
[2018-01-07] MEDS: IPRATROPIUM/ALBUTEROL 0.5-2.5 MG/3 ML AMPUL NEB SCH ×3 (00:23→16:24)
[2018-01-07 05:14] LABS: ABSOLUTE BASOPHILS # (AUTO) 0.1 10^3/uL (0.0-0.2); ABSOLUTE EOSINOPHILS # (AUTO) 0.3 10^3/uL (0.0-0.6); ABSOLUTE LYMPHOCYTES (AUTO) 3.6 10^3/uL (0.5-4.7); ABSOLUTE MONOCYTES (AUTO) 1.6 10^3/uL (0.1-1.4); ABSOLUTE NEUT (AUTO) 5.9 10^3/uL (1.7-8.2); BASOPHILS % (AUTO) 1.1 % (0-2); EOSINOPHILS % (AUTO) 2.7 % (0-6); HEMATOCRIT 26.5 % (37.9-51.0); HEMOGLOBIN 8.6 g/dL (13.5-17.0); LYMPHOCYTES % (AUTO) 31.5 % (13-45); MEAN CORPUSCULAR HEMOGLOBIN 25.7 pg (27.0-33.4); MEAN CORPUSCULAR HGB CONC 32.5 g/dL (32.0-36.0); MEAN CORPUSCULAR VOLUME 79 fl (80-97); MONOCYTES % (AUTO) 13.9 % (3-13); PLATELET COUNT 407 10^3/uL (150-450); RED BLOOD COUNT 3.35 10^6/uL (4.35-5.55); RED CELL DISTRIBUTION WIDTH 17.5 % (11.5-14.0); SEGMENTED NEUTROPHILS % (AUTO) 50.8 % (42-78); TOTAL CELLS COUNTED % (AUTO) 100 %; WHITE BLOOD COUNT 11.5 10^3/uL (4.0-10.5)
[2018-01-07 05:32] LABS: ALANINE AMINOTRANSFERASE 36 U/L (21-72); ALBUMIN 2.8 g/dL (3.5-5.0); ALKALINE PHOSPHATASE 84 U/L (38-126); ASPARTATE AMINO TRANSFERASE 17 U/L (17-59); BILIRUBIN,DIRECT 0.4 mg/dL (0.0-0.4); BILIRUBIN,TOTAL 0.4 mg/dL (0.2-1.3); BLOOD UREA NITROGEN 26 mg/dL (7-20); CALCIUM 9.1 mg/dL (8.4-10.2); CHLORIDE 102 mmol/L (98-107); GLUCOSE 87 mg/dL (75-110); POTASSIUM 5.1 mmol/L (3.6-5.0); TOTAL PROTEIN 5.6 g/dL (6.3-8.2)
[2018-01-07 05:41] LABS: CARBON DIOXIDE 33 mmol/L (22-30); SODIUM 137.4 mmol/L (137-145)
[2018-01-07 05:42] LABS: ANION GAP 2 (5-19)
[2018-01-07] MEDS: DILTIAZEM HCL 30 MG TABLET PO SCH ×3 (06:00→23:44)
[2018-01-07] MEDS: GABAPENTIN 300 MG CAPSULE PO SCH ×3 (06:00→23:44)
[2018-01-07] MEDS ORDERED: RINGERS SOLUTION,LACTATED 1,000 ML IV ONE (06:03)
[2018-01-07] MEDS: PREDNISONE 20 MG TABLET PO SCH (10:52)
[2018-01-07] MEDS: IRON SUCROSE COMPLEX INJ/PF 100 MG/5 ML SDV IV SCH (10:52)
[2018-01-07] MEDS: TAMSULOSIN HCL 0.4 MG CAP.SR.24H PO SCH (10:52)
[2018-01-07] MEDS: GUAIFENESIN 600 MG TABLET.SA PO SCH ×2 (10:52→23:45)
[2018-01-07] MEDS: ASPIRIN 325 MG TABLET PO SCH (10:52)
[2018-01-07] MEDS: FAMOTIDINE 20 MG TABLET PO SCH ×2 (10:52→23:45)
[2018-01-07] MEDS: DOCUSATE SODIUM 100 MG CAPSULE PO SCH (10:52)
[2018-01-07] MEDS: FLUTICASONE NASAL SPRAY 50 MCG/SPRY 120 SPRAY/16 GM NASL SCH ×2 (10:53→23:50)
--- NOTE | 2018-01-07 20:39 | PDOC PROGRESS REPORT ---
Subjective Progress Note for:: 01/07/18 Subjective:: Pt states that he is feeling better. Nursing states that his blood pressure is low. Reason For Visit: SEPSIS PNEUMONIA, COPD EXACERBATION Physical Exam Vital Signs: Temp Pulse Resp BP Pulse Ox 98.7 F 78 18 108/57 L 100 01/07/18 17:18 01/07/18 17:18 01/07/18 17:18 01/07/18 17:18 01/07/18 17:18 Intake & Output 01/06/18 01/07/18 01/08/18 06:59 06:59 06:59 Intake Total 5011 988 9940 Output Total 1700 2350 1050 Balance -257 -1752 590 Weight 73.1 kg 73.3 kg General appearance: PRESENT: no acute distress, well-developed, well-nourished Head exam: PRESENT: atraumatic, normocephalic Eye exam: PRESENT: conjunctiva pink, EOMI. ABSENT: scleral icterus Ear exam: PRESENT: normal external ear exam Mouth exam: PRESENT: moist, tongue midline Neck exam: ABSENT: carotid bruit, JVD, lymphadenopathy, thyromegaly Respiratory exam: PRESENT: accessory muscle use, prolonged expiratory phas, wheezes Cardiovascular exam: PRESENT: RRR. ABSENT: diastolic murmur, rubs, systolic murmur Pulses: PRESENT: normal dorsalis pedis pul Vascular exam: PRESENT: normal capillary refill GI/Abdominal exam: PRESENT: normal bowel sounds, soft. ABSENT: distended, guarding, mass, organolmegaly, rebound, tenderness Rectal exam: PRESENT: deferred Extremities exam: PRESENT: full ROM. ABSENT: calf tenderness, clubbing, pedal edema Neurological exam: PRESENT: alert, awake, oriented to person, oriented to place , oriented to time, oriented to situation, CN II-XII grossly intact. ABSENT: motor sensory deficit Psychiatric exam: PRESENT: appropriate affect, normal mood. ABSENT: homicidal ideation, suicidal ideation Skin exam: PRESENT: dry, intact, warm. ABSENT: cyanosis, rash Results Laboratory Results: 01/07/18 04:46 01/07/18 04:46 01/06/18 01/06/18 01/07/18 05:41 22:00 04:46 WBC 11.5 H RBC 3.35 L Hgb 8.6 L Hct 26.5 L MCV 79 L MCH 25.7 L MCHC 32.5 RDW 17.5 H Plt Count 407 Seg Neutrophils % 50.8 Lymphocytes % 31.5 Monocytes % 13.9 H Eosinophils % 2.7 Basophils % 1.1 Absolute Neutrophils 5.9 Absolute Lymphocytes 3.6 Absolute Monocytes 1.6 H Absolute Eosinophils 0.3 Absolute Basophils 0.1 Sodium Potassium Chloride Carbon Dioxide Anion Gap BUN Creatinine Est GFR ( Amer) Est GFR (Non-Af Amer) Glucose Calcium Magnesium 2.0 Transferrin 199 L Total Bilirubin AST ALT Alkaline Phosphatase Total Protein Albumin 01/07/18 04:46 WBC RBC Hgb Hct MCV MCH MCHC RDW Plt Count Seg Neutrophils % Lymphocytes % Monocytes % Eosinophils % Basophils % Absolute Neutrophils Absolute Lymphocytes Absolute Monocytes Absolute Eosinophils Absolute Basophils Sodium 137.4 Potassium 5.1 H Chloride 102 Carbon Dioxide 33 H Anion Gap 2 L BUN 26 H Creatinine 0.73 Est GFR ( Amer) > 60 Est GFR (Non-Af Amer) > 60 Glucose 87 Calcium 9.1 Magnesium 2.0 Transferrin Total Bilirubin 0.4 AST 17 ALT 36 Alkaline Phosphatase 84 Total Protein 5.6 L Albumin 2.8 L Impressions: Chest X-Ray 12/29/17 19:16 IMPRESSION: Bilateral lower lobe pneumonia right greater than left. Assessment & Plan - Diagnosis (1) Acute on chronic respiratory failure with hypoxemia Is this a current diagnosis for this admission?: Yes Plan: Secondary to pneumonia community-acquired gram-negative and COPD exacerbation: Resolving. Patient is breathing much better. (2) COPD with acute exacerbation Is this a current diagnosis for this admission?: Yes Plan: We will space breathing treatments this evening.. (3) Pneumonia Qualifiers: Pneumonia type: due to unspecified organism Laterality: bilateral Lung location: lower lobe of lung Qualified Code(s): J18.9 - Pneumonia, unspecified organism Is this a current diagnosis for this admission?: Yes Plan: Secondary to gram-positive organism: Pt completed antibiotic treatment. (4) Sepsis Qualifiers: Sepsis type: sepsis due to unspecified organism Qualified Code(s): A41.9 - Sepsis, unspecified organism Is this a current diagnosis for this admission?: Yes Plan: Secondary to community-acquired pneumonia: Resolved. (5) Hyperkalemia Is this a current diagnosis for this admission?: Yes Plan: Resolved. (6) Atrial fibrillation Qualifiers: Atrial fibrillation type: chronic Qualified Code(s): I48.2 - Chronic atrial fibrillation Is this a current diagnosis for this admission?: Yes Plan: Will continue Cardizem 30mg Q8h (7) Constipation Is this a current diagnosis for this admission?: Yes Plan: Resolved (8) Anemia Is this a current diagnosis for this admission?: Yes Plan: Iron deficiency anemia: We will give iron replacement. Occult stool pending (9) Hypotension Is this a current diagnosis for this admission?: Yes Plan: Secondary to Dehydration and medication: Pt give NS bolus. - Time Time Spent with patient: 15-24 minutes
[2018-01-07] MEDS: ATORVASTATIN CALCIUM 80 MG TABLET PO SCH (23:45)
[2018-01-08] MEDS: IPRATROPIUM/ALBUTEROL 0.5-2.5 MG/3 ML AMPUL NEB SCH ×2 (00:06→08:39)
[2018-01-08 05:28] LABS: ABSOLUTE BASOPHILS # (AUTO) 0.1 10^3/uL (0.0-0.2); ABSOLUTE EOSINOPHILS # (AUTO) 0.4 10^3/uL (0.0-0.6); ABSOLUTE LYMPHOCYTES (AUTO) 3.2 10^3/uL (0.5-4.7); ABSOLUTE MONOCYTES (AUTO) 1.3 10^3/uL (0.1-1.4); ABSOLUTE NEUT (AUTO) 5.4 10^3/uL (1.7-8.2); BASOPHILS % (AUTO) 0.8 % (0-2); HEMATOCRIT 27.3 % (37.9-51.0); HEMOGLOBIN 8.8 g/dL (13.5-17.0); LYMPHOCYTES % (AUTO) 30.7 % (13-45); MEAN CORPUSCULAR HEMOGLOBIN 25.5 pg (27.0-33.4); MEAN CORPUSCULAR HGB CONC 32.4 g/dL (32.0-36.0); MEAN CORPUSCULAR VOLUME 79 fl (80-97); MONOCYTES % (AUTO) 12.5 % (3-13); PLATELET COUNT 399 10^3/uL (150-450); RED BLOOD COUNT 3.46 10^6/uL (4.35-5.55); RED CELL DISTRIBUTION WIDTH 17.4 % (11.5-14.0); TOTAL CELLS COUNTED % (AUTO) 100 %; WHITE BLOOD COUNT 10.4 10^3/uL (4.0-10.5)
[2018-01-08] MEDS: DILTIAZEM HCL 30 MG TABLET PO SCH (05:47)
[2018-01-08] MEDS: GABAPENTIN 300 MG CAPSULE PO SCH (05:48)
[2018-01-08 05:55] LABS: ALANINE AMINOTRANSFERASE 27 U/L (21-72); ALBUMIN 2.8 g/dL (3.5-5.0); ALKALINE PHOSPHATASE 83 U/L (38-126); ANION GAP 6 (5-19); ASPARTATE AMINO TRANSFERASE 16 U/L (17-59); BILIRUBIN,DIRECT 0.4 mg/dL (0.0-0.4); BILIRUBIN,TOTAL 0.4 mg/dL (0.2-1.3); BLOOD UREA NITROGEN 20 mg/dL (7-20); CALCIUM 9.3 mg/dL (8.4-10.2); CARBON DIOXIDE 33 mmol/L (22-30); CHLORIDE 101 mmol/L (98-107); GLUCOSE 85 mg/dL (75-110); POTASSIUM 4.6 mmol/L (3.6-5.0); SODIUM 140.4 mmol/L (137-145); TOTAL PROTEIN 5.7 g/dL (6.3-8.2)
[2018-01-08] MEDS: IRON SUCROSE COMPLEX INJ/PF 100 MG/5 ML SDV IV SCH (10:29)
[2018-01-08] MEDS: FAMOTIDINE 20 MG TABLET PO SCH (10:29)
[2018-01-08] MEDS: TAMSULOSIN HCL 0.4 MG CAP.SR.24H PO SCH (10:29)
[2018-01-08] MEDS: PREDNISONE 20 MG TABLET PO SCH (10:29)
[2018-01-08] MEDS: DOCUSATE SODIUM 100 MG CAPSULE PO SCH (10:29)
[2018-01-08] MEDS: ASPIRIN 325 MG TABLET PO SCH (10:29)
[2018-01-08] MEDS: GUAIFENESIN 600 MG TABLET.SA PO SCH (10:29)
[2018-01-08] MEDS: FLUTICASONE NASAL SPRAY 50 MCG/SPRY 120 SPRAY/16 GM NASL SCH (10:29)
--- NOTE | 2018-01-08 11:45 | PDOC DISCHARGE SUMMARY ---
General - Admit/Disc Date/PCP Admission Date/Primary Care Provider: 12/29/17 21:05 KELLIE BASSETT Discharge Date: 01/08/18 - Discharge Diagnosis (1) Acute on chronic respiratory failure with hypoxemia Is this a current diagnosis for this admission?: Yes Summary: Secondary to community-acquired pneumonia gram-negative organism and COPD: Patient was admitted to placed on breathing treatments, steroids, and antibiotics. Patient's respiratory function has slowly improved and at time of discharge patient is back to baseline. Patient has completed antibiotic treatment for pneumonia and COPD exacerbation. Patient was sent home on a Medrol dose taper. (2) COPD with acute exacerbation Is this a current diagnosis for this admission?: Yes Summary: Pt was admitted to the hospital was placed on breathing treatments, antibiotics , and steroids. Pt 02 requirements are at patient's baseline. Patient was placed on a Medrol dose taper. (3) Pneumonia Is this a current diagnosis for this admission?: Yes Summary: Community Acquired pneumonia gram-negative organism: Completed treatment (4) Sepsis Is this a current diagnosis for this admission?: Yes Summary: Secondary to community-acquired pneumonia gram-negative organism: Resolved (5) Hyperkalemia Is this a current diagnosis for this admission?: Yes Summary: Resolved. (6) Atrial fibrillation Is this a current diagnosis for this admission?: Yes Summary: Placed on diltiazem 30 mg p.o. every 8 hours. Patient is on high-dose aspirin. Noted to have hemoglobin of 8.8. Patient also noted to have iron deficiency anemia and has been placed on iron replacement. Patient will need to have follow-up with GI for possible colonoscopy and EGD. (7) Constipation Is this a current diagnosis for this admission?: Yes (8) Anemia Is this a current diagnosis for this admission?: Yes Summary: Deficiency anemia: Patient will need a follow-up with GI for further evaluation. Patient only on aspirin. Ferrous Sulfate 325mg PO BID. (9) Hypotension Is this a current diagnosis for this admission?: Yes Summary: Resolved. - Additional Information Resuscitation Status: Do Not Resuscitate Discharge Diet: Regular Discharge Activity: Activity As Tolerated Prescriptions: Diltiazem HCl [Cardizem 30 mg Tablet] 30 mg PO Q8 #90 tablet Methylprednisolone [Medrol Dosepack (4 mg/Tab) 21 Tab/Dosepak] 4 mg PO ASDIR PRN #21 tab.ds.pk PRN Reason: Home Medications: Albuterol Sulfate [Albuterol Sulfate 2.5mg/3 mL] 1 vial IH Q4 PRN 12/29/17 Aspirin [Aspirin 325 mg Tablet] 325 mg PO DAILY 12/29/17 Atorvastatin Calcium [Lipitor 80 mg Tablet] 80 mg PO QHS 12/29/17 Fluticasone/Salmeterol [Advair 250-50 Diskus 14 Dose/Diskus] 1 inh IH Q12 Gabapentin [Neurontin] 600 mg PO Q8 12/29/17 Hydrocodone/Acetaminophen [Hydrocodone-Acetamin 5-325 mg] 1 tab PO Q8 12/29/17 Ipratropium/Albuterol Sulfate [Duoneb 3 ml Ampul] 3 ml NEB [id number] PRN 12/29/17 Ranitidine HCl [Zantac 150 mg Tablet] 150 mg PO BIDACBS 12/29/17 Tamsulosin HCl [Flomax 0.4 mg Cap.sr] 0.4 mg PO DAILY 12/29/17 Tiotropium [place] [Spiriva Handihaler 5 Cap/Kit (18 Mcg/Cap)] 1 cap IH DAILY Diltiazem HCl [Cardizem 30 mg Tablet] 30 mg PO Q8 #90 tablet 01/08/18 Methylprednisolone [Medrol Dosepack (4 mg/Tab) 21 Tab/Dosepak] 4 mg PO ASDIR PRN #21 tab.ds.pk 01/08/18 History of Present Illness Patient complains of: Shortness of breath History of Present Illness: JEAN-PIERRE OLIVAREZ is a 82 year old male hospital with complaint of shortness of breath. Patient was admitted to the hospital for COPD exacerbation and community-acquired pneumonia. Hospital Course Hospital Course: 82-year-old male presented to our facility with complaint of shortness of breath. Found to have community-acquired pneumonia and COPD exacerbation. Patient was placed on steroids breathing treatments and steroids. Patient completed antibiotic treatment here at the hospital and patient was placed on steroid taper for COPD exacerbation. Physical Exam Vital Signs: Temp Pulse Resp BP Pulse Ox 97.8 F 79 18 100/62 100 01/08/18 07:50 01/08/18 08:39 01/08/18 08:39 01/08/18 07:50 01/08/18 07:50 Intake & Output 01/07/18 01/08/18 01/09/18 06:59 06:59 06:59 Intake Total 598 1640 Output Total 2350 1050 Balance -1752 590 Weight 73.3 kg 71.9 kg General appearance: PRESENT: no acute distress, well-developed, well-nourished Head exam: PRESENT: atraumatic, normocephalic Eye exam: PRESENT: conjunctiva pink, EOMI. ABSENT: scleral icterus Ear exam: PRESENT: normal external ear exam Mouth exam: PRESENT: moist, tongue midline Neck exam: ABSENT: carotid bruit, JVD, lymphadenopathy, thyromegaly Respiratory exam: PRESENT: accessory muscle use, wheezes - scant Cardiovascular exam: PRESENT: irregular rhythm. ABSENT: diastolic murmur, rubs , systolic murmur Pulses: PRESENT: normal dorsalis pedis pul Vascular exam: PRESENT: normal capillary refill GI/Abdominal exam: PRESENT: normal bowel sounds, soft. ABSENT: distended, guarding, mass, organolmegaly, rebound, tenderness Rectal exam: PRESENT: deferred Extremities exam: PRESENT: full ROM. ABSENT: calf tenderness, clubbing, pedal edema Musculoskeletal exam: PRESENT: full ROM Neurological exam: PRESENT: alert, awake, oriented to person, oriented to place , oriented to time, oriented to situation, CN II-XII grossly intact. ABSENT: motor sensory deficit Psychiatric exam: PRESENT: appropriate affect, normal mood. ABSENT: homicidal ideation, suicidal ideation Skin exam: PRESENT: dry, intact, warm. ABSENT: cyanosis, rash Results Laboratory Results: 01/08/18 04:51 01/08/18 04:51 01/08/18 01/08/18 04:51 04:51 WBC 10.4 RBC 3.46 L Hgb 8.8 L Hct 27.3 L MCV 79 L MCH 25.5 L MCHC 32.4 RDW 17.4 H Plt Count 399 Seg Neutrophils % 52.0 Lymphocytes % 30.7 Monocytes % 12.5 Eosinophils % 4.0 Basophils % 0.8 Absolute Neutrophils 5.4 Absolute Lymphocytes 3.2 Absolute Monocytes 1.3 Absolute Eosinophils 0.4 Absolute Basophils 0.1 Sodium 140.4 Potassium 4.6 Chloride 101 Carbon Dioxide 33 H Anion Gap 6 BUN 20 Creatinine 0.71 Est GFR ( Amer) > 60 Est GFR (Non-Af Amer) > 60 Glucose 85 Calcium 9.3 Total Bilirubin 0.4 AST 16 L ALT 27 Alkaline Phosphatase 83 Total Protein 5.7 L Albumin 2.8 L Impressions: Chest X-Ray 12/29/17 19:16 IMPRESSION: Bilateral lower lobe pneumonia right greater than left. Plan Time Spent: Greater than 30 Minutes
[2018-01-08 12:14] VITALS: BP 93/51
== END 2018-01-08 12:45 | disposition home or self-care (01) | DRG 871 ==
LOC: ER 19:08 → EH 21:05 → 3W 22:23
PROVIDERS: ADMIT Internal Medicine; ATTEND Internal Medicine
PROC: 5A09557 Assistance with Respiratory Ventilation, Greater than 96 Consecutive Hours, Continuous Positive Airway Pressure (ICD-10-PCS; principal; 2017-12-29)
DX: A41.9 Sepsis, unspecified organism (principal); J15.6 Pneumonia due to other Gram-negative bacteria; J96.21 Acute and chronic respiratory failure with hypoxia; J44.1 Chronic obstructive pulmonary disease with (acute) exacerbation; J44.0 Chronic obstructive pulmonary disease with (acute) lower respiratory infection; I25.2 Old myocardial infarction; D64.9 Anemia, unspecified; I48.2 Chronic atrial fibrillation; I25.10 Atherosclerotic heart disease of native coronary artery without angina pectoris; E87.5 Hyperkalemia; I10 Essential (primary) hypertension; K21.9 Gastro-esophageal reflux disease without esophagitis; K59.00 Constipation, unspecified; M19.90 Unspecified osteoarthritis, unspecified site; Z86.14 Personal history of Methicillin resistant Staphylococcus aureus infection; Z95.1 Presence of aortocoronary bypass graft; Z90.49 Acquired absence of other specified parts of digestive tract; Z85.828 Personal history of other malignant neoplasm of skin; Z66 Do not resuscitate; F41.9 Anxiety disorder, unspecified; Z95.0 Presence of cardiac pacemaker; Z79.82 Long term (current) use of aspirin
CPT/HCPCS: 36415; 71045; 80048; 80053; 80202; 81001; 82565; 82607; 82728; 82746; 82803; 83540; 83550; 83605; 83735; 83880; 84466; 84484; 85025; 85027; 85045; 85610; 87040; 87086; 93005; 93010; 94660; 94667; 94668; 94799; 96365; 96367; 99285; G8978-GP; G8979-GP; G8980-GP; G8987-GO; G8988-GO; G8989-GO; J0692; J1644; J1756; J1956; J3370; J3490; J7030; J7040; J7060; J7120; J7512; J7620

== ENCOUNTER 2018-01-23 04:57 | Inpatient (IN) | payer MEDICARE, BC ==
[2018-01-23] MEDS ORDERED: ALBUTEROL SULFATE 0.083% NEB 2.5 MG/3 ML AMPUL NEB ONE (05:01)
--- NOTE | 2018-01-23 05:03 | ER Document Report ---
Doctor's Note Notes: 01/23/18 05:01 I performed a quick triage evaluation the patient. Patient is an 82-year-old male who presents with rest or distress. He says he has had worsening breathing over last couple days. Tonight became much worse and therefore he called the months. He does wear 2 L of oxygen at home. When paramedics arrived he was 74% on his 2 L. The given 3 DuoNeb treatments. He placed on CPAP. On CPAP with the breathing treatments he is 97%. Continues to have some tachypnea. He does have some tightness throughout lung hernandez with some wheezing. Magnesium 2 g was started in the ambulance was continued here in the ER. He also received Solu-Medrol 125 mg in the ambulance. He has been admitted in the past due to COPD exacerbations. He quit smoking approximately 6 months ago. We will continue BiPAP here. Lab work has been ordered. Venous blood gas been ordered. Chest x-ray has been ordered. He will receive breathing treatments BiPAP machine.
[2018-01-23 05:28] LABS: HEMATOCRIT 35.1 % (37.9-51.0); HEMOGLOBIN 11.2 g/dL (13.5-17.0); MEAN CORPUSCULAR HEMOGLOBIN 26.2 pg (27.0-33.4); MEAN CORPUSCULAR HGB CONC 31.8 g/dL (32.0-36.0); PLATELET COUNT 295 10^3/uL (150-450); RED BLOOD COUNT 4.25 10^6/uL (4.35-5.55); WHITE BLOOD COUNT 23.6 10^3/uL (4.0-10.5)
[2018-01-23 05:31] LABS: VENOUS BLOOD BASE EXCESS 3.8 mmol/L; VENOUS BLOOD HCO3 32.3 mmol/L (20-32); VENOUS BLOOD PH 7.28 (7.30-7.42)
--- NOTE | 2018-01-23 05:34 | RADIOLOGY REPORT (SQ) ---
EXAM DESCRIPTION: CHEST SINGLE VIEW CLINICAL HISTORY: dyspnea COMPARISON: 12/29/2017 FINDINGS: Single frontal view of the chest. Atherosclerotic calcification of the aortic arch. Heart is not enlarged. Left-sided pacemaker. Prior median sternotomy. Hyperinflation. Persistent right basilar airspace opacity. Interval increase of left basilar airspace opacity. No definite pleural effusion or pneumothorax. No acute osseous abnormalities. Upper abdominal soft tissues are unremarkable. IMPRESSION: 1. Interval increase of patchy left basilar airspace opacity. Persistent right basilar airspace opacity. These findings are concerning for bibasilar pneumonia. Findings could be related to aspiration.
[2018-01-23 05:42] LABS: ALANINE AMINOTRANSFERASE 25 U/L (21-72); ALBUMIN 3.7 g/dL (3.5-5.0); ALKALINE PHOSPHATASE 104 U/L (38-126); ANION GAP 11 (5-19); ASPARTATE AMINO TRANSFERASE 46 U/L (17-59); BILIRUBIN,DIRECT 0.4 mg/dL (0.0-0.4); BILIRUBIN,TOTAL 0.7 mg/dL (0.2-1.3); BLOOD UREA NITROGEN 20 mg/dL (7-20); CALCIUM 8.9 mg/dL (8.4-10.2); CARBON DIOXIDE 31 mmol/L (22-30); CHLORIDE 100 mmol/L (98-107); GLUCOSE 111 mg/dL (75-110); POTASSIUM 5.1 mmol/L (3.6-5.0); SODIUM 142.1 mmol/L (137-145); TOTAL PROTEIN 7.4 g/dL (6.3-8.2)
[2018-01-23 05:49] LABS: VENOUS BLOOD PCO2 70.7 mmHg (35-63)
[2018-01-23 05:59] LABS: ABSOLUTE LYMPHOCYTES# (MANUAL) 3.5 10^3/uL (0.5-4.7); ABSOLUTE MONOCYTES # (MANUAL) 0.5 10^3/uL (0.1-1.4); ABSOLUTE NEUTROPHILS# (MANUAL) 18.4 10^3/uL (1.7-8.2); BAND NEUTROPHILS % (MANUAL) 1 % (3-5); BASOPHILS % (MANUAL) 0 % (0-2); EOSINOPHILS % (MANUAL) 5 % (0-6); LYMPHOCYTES % (MANUAL) 15 % (13-45); MONOCYTES % (MANUAL) 2 % (3-13); SEGMENTED NEUTROPHILS % (MAN) 77 % (42-78); TOTAL CELLS COUNTED 100
[2018-01-23 06:00] LABS: PLATELET COMMENT ADEQUATE
[2018-01-23 06:02] LABS: BURR CELLS SLIGHT; HYPOCHROMASIA SLIGHT; OVALOCYTES SLIGHT; POIKILOCYTOSIS 1+; STOMATOCYTES SLIGHT
[2018-01-23] MEDS ORDERED: VANCOMYCIN HCL INJ 1000 MG VIAL IV ONE ×2 (06:14→08:19)
[2018-01-23] MEDS ORDERED: PIPERACILLIN/TAZOBACTAM 3.375 GM VIAL IV ONE ×2 (06:14→08:11)
[2018-01-23 06:28] LABS: MEAN CORPUSCULAR VOLUME 83 fl (80-97)
--- NOTE | 2018-01-23 06:37 | ER Document Report ---
ED Respiratory Problem - General Chief Complaint: Shortness Of Breath Stated Complaint: RESPIRATORY DISTRESS Time Seen by Provider: 01/23/18 05:00 Notes: This 82 years old male with a well advanced COPD was discharged from the hospital 2 weeks ago, presents with increasing shortness of breath and wheezing. She he was seen by the media production support manager diagnosed as atrial fibrillation and possible CHF 2 in the recent past. He presents today with increased shortness of breath. On arrival he was placed on BiPAP. And currently oxygenating well. Denies any chest pain denies any nausea vomiting denies any fever chills or other constitutional symptoms. TRAVEL OUTSIDE OF THE [place] IN LAST 30 DAYS: No - Related Data Allergies/Adverse Reactions: tobramycin Adverse Reaction (Unknown, Verified 10/06/17 01:57) Past Medical History - Social History Smoking Status: Former Smoker Chew tobacco use (# tins/day): No Frequency of alcohol use: None Drug Abuse: None Family History: COPD, Malignancy - Brain tumor Patient has suicidal ideation: No Patient has homicidal ideation: No - Past Medical History Cardiac Medical History: Reports: Hx Atrial Fibrillation - Aspirin only due to epistaxis with systemic anticoagulation., Hx Coronary Artery Disease, Hx Heart Attack - 08/2009, Hx Hypercholesterolemia, Hx Hypertension Denies: Hx DVT, Hx Pulmonary Embolism Pulmonary Medical History: Reports: Hx COPD, Hx Pneumonia Denies: Hx Asthma, Hx Sleep Apnea Neurological Medical History: Denies: Hx Cerebrovascular Accident, Hx Seizures Endocrine Medical History: Denies: Hx Diabetes Mellitus Type 1, Hx Diabetes Mellitus Type 2, Hx Hyperthyroidism, Hx Hypothyroidism Renal/ Medical History: Denies: Hx Peritoneal Dialysis Malignancy Medical History: Reports Hx Skin Cancer GI Medical History: Reports: Hx Gastroesophageal Reflux Disease. Denies: Hx Cirrhosis, Hx Hepatitis, Hx Hiatal Hernia, Hx Ulcer Musculoskeltal Medical History: Reports Hx Arthritis, Reports Hx Musculoskeletal Trauma Psychiatric Medical History: Reports: Hx Dementia Denies: Hx Depression Infectious Medical History: Reports: Hx MRSA. Denies: Hx C-Diff, Hx Hepatitis Past Surgical History: Reports: Hx Appendectomy, Hx Coronary Artery Bypass Graft , Hx Open Heart Surgery, Hx Orthopedic Surgery - back surgery, Hx Pacemaker - Immunizations Immunizations up to date: Yes Hx Diphtheria, Pertussis, Tetanus Vaccination: Yes Review of Systems - Review of Systems Constitutional: See HPI Physical Exam - Vital signs Vitals: Pulse Ox 100 01/23/18 04:59 PHYSICAL EXAMINATION: GENERAL: Cachectic, due to advanced COPD. Respiratory difficulty. HEAD: Atraumatic, normocephalic. EYES: Pupils equal round and reactive to light, extraocular movements intact, sclera anicteric, conjunctiva are normal. ENT: Nares patent, oropharynx clear without exudates. Moist mucous membranes. NECK: Normal range of motion, supple without lymphadenopathy LUNGS: Bilaterally diffuse expiratory crackles with no inspiratory rales. HEART: Regular rate and rhythm without murmurs ABDOMEN: Soft, nontender, nondistended abdomen. No guarding, no rebound. No masses appreciated. Musculoskeletal: Normal range of motion, no pitting or edema. No cyanosis. NEUROLOGICAL: Cranial nerves grossly intact. Normal speech, normal gait. Normal sensory, motor exams PSYCH: Normal mood, normal affect. SKIN: Warm, Dry, normal turgor, no rashes or lesions noted. Course - Re-evaluation Re-evalutation: 01/23/18 06:35 Patient was placed on BiPAP and oxygenating well now. 01/23/18 08:20 Give him IV antibiotics Zosyn and Vanco IV fluids - Vital Signs Vital signs: Temp Pulse Resp BP Pulse Ox 98.5 F 119 H 0 L 99/69 L 96 01/23/18 05:17 01/23/18 05:17 01/23/18 08:01 01/23/18 08:00 01/23/18 08:01 - Laboratory Result Diagrams: 01/23/18 05:05 01/23/18 05:05 Laboratory results interpreted by me: 01/23/18 01/23/18 01/23/18 05:05 05:05 05:05 WBC 23.6 H RBC 4.25 L Hgb 11.2 L Hct 35.1 L MCH 26.2 L MCHC 31.8 L RDW 21.0 H Band Neutrophils % 1 L Monocytes % (Manual) 2 L Abs Neuts (Manual) 18.4 H Absolute Eos (Manual) 1.2 H VBG pH 7.28 L VBG pCO2 70.7 H* VBG HCO3 32.3 H Potassium 5.1 H Carbon Dioxide 31 H Glucose 111 H Critical Care Note - Critical Care Note Total time excluding time spent on procedures (mins): 60 - Manmanagement of COPD pneumonia Discharge - Discharge Clinical Impression: COPD with acute exacerbation, Acute on chronic respiratory failure with hypoxemia Atrial fibrillation Qualifiers: Atrial fibrillation type: chronic Qualified Code(s): I48.2 - Chronic atrial fibrillation Pneumonia Qualifiers: Pneumonia type: aspiration pneumonia Aspiration pneumonia type: unspecified Laterality: right Lung location: upper lobe of lung Qualified Code(s): J69.0 - Pneumonitis due to inhalation of food and vomit Disposition: ADMITTED INPATIENT Admitting Provider: Hospitalist Unit Admitted: IMCU Referrals: KELLIE BASSETT MD [Primary Care Provider] - Follow up as needed
[2018-01-23] MEDS ORDERED: NORMAL SALINE 1000 ML 1,000 ML IV PRN (08:09)
--- NOTE | 2018-01-23 08:59 | EKG REPORT ---
SEVERITY:- ABNORMAL ECG - AFIB/FLUT LEFT ANTERIOR FASCICULAR BLOCK BORDERLINE REPOL ABNORMALITY, ANT-LAT LEADS : Confirmed by: Tima Rendon MD 23-Jan-2018 08:58:33
[2018-01-23 10:48] LABS: A TYPE INFLUENZA AG NEGATIVE (NEGATIVE); B INFLUENZA AG NEGATIVE (NEGATIVE)
[2018-01-23] MEDS ORDERED: ACETAMINOPHEN 325 MG TABLET PO PRN (11:56)
[2018-01-23] MEDS ORDERED: ALBUTEROL SULFATE HFA (90 MCG/PUFF) 200 PUFF/8.5 GM MDI IH PRN (11:56)
[2018-01-23] MEDS ORDERED: PHARMACY COMMUNICATION ORDER MC NR (12:15)
[2018-01-23] MEDS ORDERED: DILTIAZEM HCL 30 MG TABLET PO SCH (14:00)
[2018-01-23] MEDS: CEFEPIME 2 GM/D5W RTU 2 GM/50 ML RTUPB IV SCH (15:23)
[2018-01-23] MEDS: NORMAL SALINE 1000 ML 1,000 ML IV PRN ×2 (15:24→16:54)
[2018-01-23] MEDS: IPRATROPIUM/ALBUTEROL 0.5-2.5 MG/3 ML AMPUL NEB PRN ×2 (15:24→21:07)
--- NOTE | 2018-01-23 15:39 | PDOC H&P ---
History of Present Illness Admission Date/PCP: 01/23/18 08:34 KELLIE BASSETT Patient complains of: Difficulty breathing and shortness of breath History of Present Illness: JEAN-PIERRE OLIVAREZ is a 82 year old male This 82-year-old gentleman who is well-known to me from his last admission when was treated for a community-acquired pneumonia returns to the emergency room today again with complaints of difficulty breathing and shortness of breath as well as fever. Chest x-ray finding was an interval increase of patchy left basilar air space opacity with persistent right basilar airspace opacity concerning for bibasilar pneumonia. He was found to be hypoxemic on initial presentation. Patient was also septic with hypotension, tachycardia and tachypnea with source infection of pneumonia. He said he finished his antibiotic from his last admission. He was just discharged on January 08. Past Medical History Cardiac Medical History: Reports: Atrial Fibrillation - Aspirin only due to epistaxis with systemic anticoagulation., Coronary Artery Disease, Myocardial Infarction - 08/2009, Hyperlipidema, Hypertension Denies: DVT, Pulmonary Embolism Pulmonary Medical History: Reports: Chronic Obstructive Pulmonary Disease (COPD) , Pneumonia Denies: Asthma, Sleep Apnea Neurological Medical History: Denies: Seizures Endocrine Medical History: Denies: Diabetes Mellitus Type 1, Diabetes Mellitus Type 2, Hyperthyroidism, Hypothyroidism Malignancy Medical History: Reports: Skin Cancer GI Medical History: Reports: Gastroesophageal Reflux Disease Denies: Cirrhosis, Hepatitis, Hiatal Hernia Musculoskeltal Medical History: Reports: Arthritis Psychiatric Medical History: Reports: Dementia Denies: Depression Hematology: Denies: Anemia, Sickle Cell Disease Infectious Medical History: Reports: Methicillin-Resistant Staph Aureus Denies: Clostridium Difficile Past Surgical History Past Surgical History: Reports: Appendectomy, Coronary Artery Bypass Graft, Orthopedic Surgery - back surgery, Pacemaker Social History Information Source: Patient Smoking Status: Former Smoker Frequency of Alcohol Use: None Hx Recreational Drug Use: No Drugs: None Hx Prescription Drug Abuse: No - Advance Directive Resuscitation Status: Do Not Resuscitate Family History Family History: COPD, Malignancy - Brain tumor Parental Family History Reviewed: No - None available Children Family History Reviewed: Yes - Reviewed no significant Sibling(s) Family History Reviewed.: Unknown Medication/Allergy Home Medications: Albuterol Sulfate [Albuterol Sulfate 2.5mg/3 mL] 1 vial IH RTQ4HP PRN 01/23/18 Aspirin [Aspirin 325 mg Tablet] 325 mg PO DAILY 01/23/18 Atorvastatin Calcium [Lipitor 80 mg Tablet] 80 mg PO QHS 01/23/18 Diltiazem HCl [Cardizem 30 mg Tablet] 30 mg PO Q8 01/23/18 Fluticasone/Salmeterol [Advair 250-50 Diskus 14 Dose/Diskus] 1 inh IH Q12 Gabapentin [Neurontin] 600 mg PO Q8 01/23/18 Ipratropium/Albuterol Sulfate [Duoneb 3 ml Ampul] 3 ml NEB RTQ6HP PRN 01/23/18 Ranitidine HCl [Zantac] 150 mg PO BIDACBS 01/23/18 Tamsulosin HCl [Flomax 0.4 mg Cap.sr] 0.4 mg PO DAILY 01/23/18 Tiotropium [place] [Spiriva Handihaler 5 Cap/Kit (18 Mcg/Cap)] 1 cap IH DAILY Allergies/Adverse Reactions: tobramycin Adverse Reaction (Unknown, Verified 10/06/17 01:57) Review of Systems All systems: reviewed and no additional remarkable complaints except as stated Cardiovascular: PRESENT: dyspnea on exertion. ABSENT: chest pain, palpitations Respiratory: PRESENT: cough, dyspnea, sputum Gastrointestinal: ABSENT: abdominal pain, constipation, diarrhea, hematemesis, hematochezia, nausea, vomiting Genitourinary: ABSENT: dysuria, hematuria Musculoskeletal: PRESENT: as per HPI Integumentary: PRESENT: as per HPI Neurological: PRESENT: as per HPI Endocrine: PRESENT: as per HPI Hematologic/Lymphatic: PRESENT: as per HPI Physical Exam Vital Signs: Temp Pulse Resp BP Pulse Ox 98.8 F 119 H 17 96/59 L 99 01/23/18 11:57 01/23/18 05:17 01/23/18 13:05 01/23/18 12:01 01/23/18 13:05 General appearance: PRESENT: no acute distress, other - Elderly and frail Head exam: PRESENT: atraumatic Eye exam: PRESENT: conjunctiva pink, EOMI, PERRLA. ABSENT: scleral icterus Mouth exam: PRESENT: dry mucosa Neck exam: ABSENT: carotid bruit, JVD, lymphadenopathy, thyromegaly Respiratory exam: PRESENT: crackles, rhonchi. ABSENT: accessory muscle use, chest wall tenderness Cardiovascular exam: PRESENT: RRR, +S1, +S2 Pulses: PRESENT: normal dorsalis pedis pul GI/Abdominal exam: PRESENT: normal bowel sounds, soft. ABSENT: distended, guarding, mass, organolmegaly, rebound, tenderness Rectal exam: PRESENT: deferred Gentrourinary exam: ABSENT: erythema Extremities exam: PRESENT: full ROM. ABSENT: calf tenderness, clubbing, pedal edema Musculoskeletal exam: PRESENT: ambulatory, full ROM Neurological exam: PRESENT: alert, awake, oriented to person, oriented to place , oriented to time, oriented to situation Psychiatric exam: PRESENT: appropriate affect, normal mood. ABSENT: homicidal ideation, suicidal ideation Results Laboratory Results: 01/23/18 08:40 Lactic Acid 0.9 Impressions: Chest X-Ray 01/23/18 05:00 IMPRESSION: 1. Interval increase of patchy left basilar airspace opacity. Persistent right basilar airspace opacity. These findings are concerning for bibasilar pneumonia. Findings could be related to aspiration. Assessment & Plan - Diagnosis (1) Acute on chronic respiratory failure with hypoxemia Is this a current diagnosis for this admission?: Yes Plan: Secondary to healthcare associated pneumonia. Patient was just recently discharged about 2 weeks ago for community-acquired pneumonia. We will continue with oxygen support BRA mind that patient has history of COPD although this is currently stable (2) Pneumonia Qualifiers: Pneumonia type: aspiration pneumonia Aspiration pneumonia type: unspecified Laterality: right Lung location: upper lobe of lung Qualified Code(s): J69.0 - Pneumonitis due to inhalation of food and vomit Plan: This should be treated as a healthcare associated pneumonia and so I have added vancomycin to his regimen. Due to concerns about aspiration pneumonia is speech therapy evaluation will also be ordered to review his swallowing. (3) Sepsis Qualifiers: Sepsis type: sepsis due to unspecified organism Qualified Code(s): A41.9 - Sepsis, unspecified organism Is this a current diagnosis for this admission?: Yes Plan: Patient meets current sepsis criteria with his tachycardia, tachypnea, fever as well as hypotension and pneumonia. (4) HTN (hypertension) Qualifiers: (5) Atrial fibrillation Qualifiers: Atrial fibrillation type: chronic Qualified Code(s): I48.2 - Chronic atrial fibrillation Plan: Likely this seems to be relatively controlled at this time. Patient is on no anticoagulant likely due to fall risk He will be placed on prophylactic anticoagulant - Time Time Spent: 50 to 70 Minutes Medications reviewed and adjusted accordingly: Yes Anticipated discharge: Home Within: within 72 hours - Inpatient Certification Medical Necessity: Need for IV Antibiotics, Risk of Complication if Not Cared For in Hospital
[2018-01-23] MEDS ORDERED: ENOXAPARIN SODIUM INJ 40 MG/0.4 ML DISP.SYRIN SUBCUT ONE (16:00)
[2018-01-23] MEDS: FAMOTIDINE 20 MG TABLET PO SCH (19:54)
[2018-01-23] MEDS: HYDROCODONE/ACETAMINOPHEN 5-325 MG TABLET PO PRN (20:40)
[2018-01-23] MEDS: FLUTICASONE/SALMETEROL DISKUS 250-50 MCG/DOSE IH SCH (21:25)
[2018-01-23] MEDS: ATORVASTATIN CALCIUM 80 MG TABLET PO SCH (21:25)
[2018-01-23] MEDS: GUAIFENESIN 600 MG TABLET.SA PO SCH (21:25)
[2018-01-23] MEDS: VANCOMYCIN HCL 750 MG in DEXTROSE 5%-WATER 250 ML IV SCH (21:26)
[2018-01-24] MEDS ORDERED: MAG HYDROX/AL HYDROX/SIMETH SUSP 30 ML UDCUP PO PRN (00:29)
[2018-01-24] MEDS: IPRATROPIUM/ALBUTEROL 0.5-2.5 MG/3 ML AMPUL NEB PRN ×3 (02:12→17:25)
[2018-01-24] MEDS ORDERED: CEFEPIME 2 GM/D5W RTU 2 GM/50 ML RTUPB IV ONE (02:15)
[2018-01-24] MEDS: CEFEPIME 2 GM/D5W RTU 2 GM/50 ML RTUPB IV SCH (02:21)
[2018-01-24] MEDS ORDERED: CALCIUM CARBONATE 500 MG TAB.CHEW PO PRN (02:40)
[2018-01-24 04:41] LABS: HEMATOCRIT 28.3 % (37.9-51.0); MEAN CORPUSCULAR HEMOGLOBIN 26.3 pg (27.0-33.4); MEAN CORPUSCULAR HGB CONC 32.3 g/dL (32.0-36.0); MEAN CORPUSCULAR VOLUME 82 fl (80-97); PLATELET COUNT 181 10^3/uL (150-450); RED BLOOD COUNT 3.48 10^6/uL (4.35-5.55); RED CELL DISTRIBUTION WIDTH 21.2 % (11.5-14.0); WHITE BLOOD COUNT 18.2 10^3/uL (4.0-10.5)
[2018-01-24 04:58] LABS: HEMOGLOBIN 9.1 g/dL (13.5-17.0)
[2018-01-24 04:59] LABS: ANION GAP 10 (5-19); BLOOD UREA NITROGEN 26 mg/dL (7-20); CALCIUM 8.3 mg/dL (8.4-10.2); CARBON DIOXIDE 25 mmol/L (22-30); CHLORIDE 102 mmol/L (98-107); GLUCOSE 124 mg/dL (75-110); POTASSIUM 4.7 mmol/L (3.6-5.0); SODIUM 137.2 mmol/L (137-145)
[2018-01-24] MEDS: NORMAL SALINE 1000 ML 1,000 ML IV PRN ×2 (05:10→18:06)
[2018-01-24] MEDS: HYDROCODONE/ACETAMINOPHEN 5-325 MG TABLET PO PRN ×2 (08:05→18:10)
[2018-01-24] MEDS: GUAIFENESIN 600 MG TABLET.SA PO SCH ×2 (09:21→21:48)
[2018-01-24] MEDS: TAMSULOSIN HCL 0.4 MG CAP.SR.24H PO SCH (09:21)
[2018-01-24] MEDS: FAMOTIDINE 20 MG TABLET PO SCH ×2 (09:22→21:47)
[2018-01-24] MEDS: ASPIRIN 325 MG TABLET PO SCH (09:22)
[2018-01-24] MEDS: FLUTICASONE/SALMETEROL DISKUS 250-50 MCG/DOSE IH SCH ×2 (09:22→21:48)
[2018-01-24] MEDS: VANCOMYCIN HCL 750 MG in DEXTROSE 5%-WATER 250 ML IV SCH ×2 (09:23→21:51)
[2018-01-24] MEDS: ENOXAPARIN SODIUM INJ 40 MG/0.4 ML DISP.SYRIN SUBCUT SCH (09:23)
--- NOTE | 2018-01-24 09:56 | PDOC PROGRESS REPORT ---
Subjective Progress Note for:: 01/24/18 Subjective:: Patient feels better and breathing is improved. Is actually using minimal oxygen at this time. He still has a lot of cough but getting clear. Reason For Visit: [facility] PNEUMONIA Physical Exam Vital Signs: Temp Pulse Resp BP Pulse Ox 98.4 F 73 18 148/68 H 95 01/24/18 07:10 01/24/18 09:30 01/24/18 09:30 01/24/18 07:10 01/24/18 09:30 Intake & Output 01/23/18 01/24/18 01/25/18 06:59 06:59 06:59 Intake Total 2119 Balance 2119 Weight 68.3 kg General appearance: PRESENT: no acute distress, cooperative, thin Head exam: PRESENT: atraumatic Eye exam: PRESENT: conjunctiva pink, EOMI, PERRLA. ABSENT: scleral icterus Ear exam: PRESENT: normal external ear exam Neck exam: ABSENT: carotid bruit, JVD, lymphadenopathy, thyromegaly Respiratory exam: PRESENT: decreased breath sounds, rales, rhonchi, unlabored. ABSENT: accessory muscle use, crackles, prolonged expiratory phas, tachypnea, wheezes Cardiovascular exam: PRESENT: RRR, +S1, +S2 Pulses: PRESENT: normal dorsalis pedis pul GI/Abdominal exam: PRESENT: normal bowel sounds, soft. ABSENT: distended, guarding, mass, organolmegaly, rebound, tenderness Extremities exam: ABSENT: calf tenderness, joint swelling Musculoskeletal exam: PRESENT: ambulatory, full ROM Neurological exam: PRESENT: alert, awake, oriented to time, oriented to situation, CN II-XII grossly intact. ABSENT: motor sensory deficit Psychiatric exam: PRESENT: appropriate affect, normal mood. ABSENT: homicidal ideation, suicidal ideation Skin exam: PRESENT: dry, intact, warm. ABSENT: cyanosis, rash Results Laboratory Results: 01/24/18 04:13 01/24/18 04:13 01/23/18 01/23/18 01/24/18 08:40 17:11 04:13 WBC 18.2 H RBC 3.48 L Hgb 9.1 L D Hct 28.3 L MCV 82 MCH 26.3 L MCHC 32.3 RDW 21.2 H Plt Count 181 Sodium Potassium Chloride Carbon Dioxide Anion Gap BUN Creatinine Est GFR ( Amer) Est GFR (Non-Af Amer) Glucose Lactic Acid 0.9 Calcium Magnesium 2.2 01/24/18 04:13 WBC RBC Hgb Hct MCV MCH MCHC RDW Plt Count Sodium 137.2 Potassium 4.7 Chloride 102 Carbon Dioxide 25 Anion Gap 10 BUN 26 H Creatinine 0.79 Est GFR ( Amer) > 60 Est GFR (Non-Af Amer) > 60 Glucose 124 H Lactic Acid Calcium 8.3 L Magnesium 01/23/18 19:20 Sputum Gram Stain - Final 01/23/18 19:20 Sputum Sputum Culture - Final Impressions: Chest X-Ray 01/23/18 05:00 IMPRESSION: 1. Interval increase of patchy left basilar airspace opacity. Persistent right basilar airspace opacity. These findings are concerning for bibasilar pneumonia. Findings could be related to aspiration. Status: Imported from PACS Assessment & Plan - Diagnosis (1) Acute on chronic respiratory failure with hypoxemia Is this a current diagnosis for this admission?: Yes Plan: Secondary to healthcare associated pneumonia. Patient was just recently discharged about 2 weeks ago for community-acquired pneumonia. [facility] oxygenation has improved currently on half liter oxygen (2) Pneumonia Qualifiers: Pneumonia type: aspiration pneumonia Aspiration pneumonia type: unspecified Laterality: right Lung location: upper lobe of lung Qualified Code(s): J69.0 - Pneumonitis due to inhalation of food and vomit Plan: We will continue vancomycin for possible healthcare associated pneumonia as well as cefepime. Speech therapy evaluation of his swallowing abilities will be obtained to rule out aspiration pneumonia (3) Sepsis Qualifiers: Sepsis type: sepsis due to unspecified organism Qualified Code(s): A41.9 - Sepsis, unspecified organism Is this a current diagnosis for this admission?: Yes Plan: Patient meets current sepsis criteria with his tachycardia, tachypnea, fever as well as hypotension and pneumonia. This is resolving (4) HTN (hypertension) Qualifiers: Is this a current diagnosis for this admission?: Yes Plan: His blood pressure has actually tended somewhat low. We will hold his antihypertensives for now (5) Atrial fibrillation Qualifiers: Atrial fibrillation type: chronic Qualified Code(s): I48.2 - Chronic atrial fibrillation Is this a current diagnosis for this admission?: Yes Plan: He is currently sinus although with some occasional PVCs noted - Time Time Spent with patient: 15-24 minutes Medications reviewed and adjusted accordingly: Yes Anticipated discharge: Home - Inpatient Certification Based on my medical assessment, after consideration of the patient's comorbidities, presenting symptoms, or acuity I expect that the services needed warrant INPATIENT care.: Yes I certify that my determination is in accordance with my understanding of Medicare's requirements for reasonable and necessary INPATIENT services [42 CFR 412.3e].: Yes Medical Necessity: Need for IV Antibiotics, Risk of Complication if Not Cared For in Hospital
[2018-01-24] MEDS ORDERED: CEFEPIME HCL 2 GM in NORMAL SALINE 100 ML IV ONE (15:00)
[2018-01-24] MEDS ORDERED: DILTIAZEM HCL 30 MG TABLET PO ONE ×2 (19:30→22:00)
[2018-01-24] MEDS: ATORVASTATIN CALCIUM 80 MG TABLET PO SCH (21:47)
[2018-01-24] MEDS ORDERED: LEVALBUTEROL HCL NEB 0.63 MG/3 ML AMPUL NEB ONE (21:57)
[2018-01-24] MEDS ORDERED: IPRATROPIUM BROMIDE 0.02% NEB 0.5 MG/2.5 ML AMPUL NEB ONE (21:57)
[2018-01-24] MEDS: IPRATROPIUM BROMIDE 0.02% NEB 0.5 MG/2.5 ML AMPUL NEB SCH (23:46)
[2018-01-24] MEDS: LEVALBUTEROL HCL NEB 0.63 MG/3 ML AMPUL NEB SCH (23:47)
[2018-01-25] MEDS: CEFEPIME HCL 2 GM in NORMAL SALINE 100 ML IV SCH ×2 (02:33→15:51)
[2018-01-25] MEDS: HYDROCODONE/ACETAMINOPHEN 5-325 MG TABLET PO PRN ×2 (02:36→22:27)
[2018-01-25] MEDS: LEVALBUTEROL HCL NEB 0.63 MG/3 ML AMPUL NEB SCH ×5 (04:01→21:01)
[2018-01-25] MEDS: IPRATROPIUM BROMIDE 0.02% NEB 0.5 MG/2.5 ML AMPUL NEB SCH ×5 (04:01→21:01)
[2018-01-25 05:58] LABS: HEMATOCRIT 28.9 % (37.9-51.0); HEMOGLOBIN 9.2 g/dL (13.5-17.0); MEAN CORPUSCULAR HGB CONC 31.9 g/dL (32.0-36.0); MEAN CORPUSCULAR VOLUME 82 fl (80-97); PLATELET COUNT 215 10^3/uL (150-450); RED BLOOD COUNT 3.54 10^6/uL (4.35-5.55); RED CELL DISTRIBUTION WIDTH 20.8 % (11.5-14.0); WHITE BLOOD COUNT 14.8 10^3/uL (4.0-10.5)
[2018-01-25] MEDS ORDERED: DILTIAZEM HCL 30 MG TABLET PO SCH (06:00)
[2018-01-25] MEDS ORDERED: LORAZEPAM INJ 2 MG/1 ML VIAL ONE (08:41)
[2018-01-25] MEDS: ASPIRIN 325 MG TABLET PO SCH (08:50)
[2018-01-25] MEDS: DILTIAZEM HCL 60 MG TABLET PO SCH ×2 (08:50→22:27)
--- NOTE | 2018-01-25 09:50 | PDOC PROGRESS REPORT ---
Subjective Progress Note for:: 01/25/18 Subjective:: Patient was tachycardic and was restarted on his Cardizem, his dose was increased overnight. Still tachycardic and anxious. He apparently was started on Dig after his last hospital discharge and so he has been off this for at least 3 days now. Reason For Visit: [facility] PNEUMONIA Physical Exam Vital Signs: Temp Pulse Resp BP Pulse Ox 97.7 F 103 H 22 H 141/79 H 100 01/25/18 07:09 01/25/18 07:09 01/25/18 07:09 01/25/18 07:09 01/25/18 07:09 Intake & Output 01/24/18 01/25/18 01/26/18 06:59 06:59 06:59 Intake Total 2119 3391 Output Total 940 Balance 2119 2451 Weight 68.3 kg 71.7 kg General appearance: PRESENT: no acute distress, thin Head exam: PRESENT: atraumatic Eye exam: PRESENT: conjunctiva pink, EOMI, PERRLA. ABSENT: scleral icterus Ear exam: PRESENT: normal external ear exam Mouth exam: PRESENT: dry mucosa Neck exam: ABSENT: carotid bruit, JVD, lymphadenopathy, thyromegaly Respiratory exam: PRESENT: decreased breath sounds, rhonchi Cardiovascular exam: PRESENT: irregular rhythm, +S1, +S2, other - PPM GI/Abdominal exam: PRESENT: normal bowel sounds, soft. ABSENT: distended, guarding, mass, organolmegaly, rebound, tenderness Rectal exam: PRESENT: deferred Extremities exam: PRESENT: full ROM. ABSENT: calf tenderness, clubbing, pedal edema Musculoskeletal exam: PRESENT: ambulatory Neurological exam: PRESENT: alert, awake, oriented to person, oriented to time Psychiatric exam: PRESENT: anxious Results Laboratory Results: 01/25/18 05:20 01/24/18 04:13 01/25/18 05:20 WBC 14.8 H RBC 3.54 L Hgb 9.2 L Hct 28.9 L MCV 82 MCH 26.0 L MCHC 31.9 L RDW 20.8 H Plt Count 215 01/23/18 19:20 Sputum Gram Stain - Final 01/23/18 19:20 Sputum Sputum Culture - Final Impressions: Chest X-Ray 01/23/18 05:00 IMPRESSION: 1. Interval increase of patchy left basilar airspace opacity. Persistent right basilar airspace opacity. These findings are concerning for bibasilar pneumonia. Findings could be related to aspiration. Assessment & Plan - Diagnosis (1) Acute on chronic respiratory failure with hypoxemia Is this a current diagnosis for this admission?: Yes Plan: Secondary to healthcare associated pneumonia. Patient was just recently discharged about 2 weeks ago for community-acquired pneumonia. His respiratory status continues to improve (2) Pneumonia Qualifiers: Pneumonia type: aspiration pneumonia Aspiration pneumonia type: unspecified Laterality: right Lung location: upper lobe of lung Qualified Code(s): J69.0 - Pneumonitis due to inhalation of food and vomit (3) Sepsis Qualifiers: Sepsis type: sepsis due to unspecified organism Qualified Code(s): A41.9 - Sepsis, unspecified organism Is this a current diagnosis for this admission?: Yes Plan: Patient meets current sepsis criteria with his tachycardia, tachypnea, fever as well as hypotension and pneumonia. This is resolving (4) Atrial fibrillation Qualifiers: Atrial fibrillation type: chronic Qualified Code(s): I48.2 - Chronic atrial fibrillation Is this a current diagnosis for this admission?: Yes Plan: Patient is back in A fib with RVR also worsened by his anxiety. Will add Digoxin , ativan and continue Diltiazem. See plans above (5) HTN (hypertension) Qualifiers: Is this a current diagnosis for this admission?: Yes Plan: BP has recovered and he is now hypertensive. Will restart his antihypertensives - Time Time Spent with patient: 15-24 minutes Medications reviewed and adjusted accordingly: Yes Anticipated discharge: Home Within: within 72 hours - Inpatient Certification Based on my medical assessment, after consideration of the patient's comorbidities, presenting symptoms, or acuity I expect that the services needed warrant INPATIENT care.: Yes I certify that my determination is in accordance with my understanding of Medicare's requirements for reasonable and necessary INPATIENT services [42 CFR 412.3e].: Yes Medical Necessity: Need for IV Antibiotics, Risk of Complication if Not Cared For in Hospital
[2018-01-25] MEDS ORDERED: DIGOXIN INJ 0.5 MG/2 ML AMPULE IV ONE (10:00)
[2018-01-25 11:09] LABS: VANCOMYCIN,TROUGH 11.7 ug/mL (5.0-20.0)
[2018-01-25] MEDS: TAMSULOSIN HCL 0.4 MG CAP.SR.24H PO SCH (11:09)
[2018-01-25] MEDS: GUAIFENESIN 600 MG TABLET.SA PO SCH ×2 (11:10→22:32)
[2018-01-25] MEDS: FLUTICASONE/SALMETEROL DISKUS 250-50 MCG/DOSE IH SCH ×2 (11:10→22:28)
[2018-01-25] MEDS: ENOXAPARIN SODIUM INJ 40 MG/0.4 ML DISP.SYRIN SUBCUT SCH (11:10)
[2018-01-25] MEDS: FAMOTIDINE 20 MG TABLET PO SCH ×2 (11:10→22:27)
[2018-01-25] MEDS: VANCOMYCIN HCL 750 MG in DEXTROSE 5%-WATER 250 ML IV SCH (11:33)
[2018-01-25] MEDS: LORAZEPAM 0.5 MG TABLET PO PRN ×2 (15:34→21:01)
[2018-01-25] MEDS: VANCOMYCIN HCL 1,000 MG in DEXTROSE 5%-WATER 250 ML IV SCH (22:21)
[2018-01-25] MEDS: ATORVASTATIN CALCIUM 80 MG TABLET PO SCH (22:32)
[2018-01-26] MEDS: IPRATROPIUM BROMIDE 0.02% NEB 0.5 MG/2.5 ML AMPUL NEB SCH ×6 (00:02→19:49)
[2018-01-26] MEDS: LEVALBUTEROL HCL NEB 0.63 MG/3 ML AMPUL NEB SCH ×6 (00:03→19:49)
[2018-01-26] MEDS: CEFEPIME HCL 2 GM in NORMAL SALINE 100 ML IV SCH ×2 (02:47→14:26)
[2018-01-26 04:49] LABS: HEMATOCRIT 26.9 % (37.9-51.0); HEMOGLOBIN 8.7 g/dL (13.5-17.0); MEAN CORPUSCULAR HEMOGLOBIN 26.2 pg (27.0-33.4); MEAN CORPUSCULAR HGB CONC 32.2 g/dL (32.0-36.0); MEAN CORPUSCULAR VOLUME 82 fl (80-97); PLATELET COUNT 211 10^3/uL (150-450); RED CELL DISTRIBUTION WIDTH 21.3 % (11.5-14.0)
[2018-01-26 05:07] LABS: BLOOD UREA NITROGEN 25 mg/dL (7-20); CALCIUM 8.4 mg/dL (8.4-10.2); CARBON DIOXIDE 24 mmol/L (22-30); CHLORIDE 110 mmol/L (98-107); DIGOXIN 0.48 ng/mL (0.8-2.0); GLUCOSE 81 mg/dL (75-110); POTASSIUM 4.6 mmol/L (3.6-5.0)
[2018-01-26 05:30] LABS: SODIUM 136.6 mmol/L (137-145)
[2018-01-26 05:34] LABS: ANION GAP 3 (5-19)
[2018-01-26] MEDS: LORAZEPAM 0.5 MG TABLET PO PRN (07:00)
--- NOTE | 2018-01-26 10:14 | PDOC PROGRESS REPORT ---
Subjective Progress Note for:: 01/26/18 Subjective:: Patient says his appetite is poor, not sure if he's feeling better. Reason For Visit: [facility] A Fib Physical Exam Vital Signs: Temp Pulse Resp BP Pulse Ox 98.7 F 94 16 157/67 H 100 01/26/18 08:08 01/26/18 08:08 01/26/18 08:08 01/26/18 08:08 01/26/18 08:08 Intake & Output 01/25/18 01/26/18 01/27/18 06:59 06:59 06:59 Intake Total 3391 1843 Output Total 940 1750 Balance 2451 93 Weight 71.7 kg 69.2 kg General appearance: PRESENT: thin - elderly Head exam: PRESENT: atraumatic Eye exam: PRESENT: conjunctiva pink, EOMI, PERRLA. ABSENT: scleral icterus Ear exam: PRESENT: normal external ear exam Neck exam: ABSENT: carotid bruit, JVD, lymphadenopathy, thyromegaly Respiratory exam: PRESENT: decreased breath sounds, rhonchi. ABSENT: accessory muscle use Cardiovascular exam: PRESENT: irregular rhythm, +S1, +S2 Pulses: PRESENT: normal dorsalis pedis pul GI/Abdominal exam: PRESENT: normal bowel sounds, soft. ABSENT: distended, guarding, mass, organolmegaly, rebound, tenderness Rectal exam: PRESENT: deferred Extremities exam: PRESENT: full ROM. ABSENT: calf tenderness, clubbing, pedal edema Musculoskeletal exam: PRESENT: ambulatory, full ROM, normal inspection Neurological exam: PRESENT: alert, awake, oriented to person, oriented to place , oriented to time, oriented to situation, CN II-XII grossly intact. ABSENT: motor sensory deficit Psychiatric exam: PRESENT: anxious Skin exam: PRESENT: dry, intact, warm. ABSENT: cyanosis, rash Results Laboratory Results: 01/26/18 04:38 01/26/18 04:38 01/26/18 01/26/18 04:38 04:38 WBC 11.0 H RBC 3.30 L Hgb 8.7 L Hct 26.9 L MCV 82 MCH 26.2 L MCHC 32.2 RDW 21.3 H Plt Count 211 Sodium 136.6 L Potassium 4.6 Chloride 110 H Carbon Dioxide 24 Anion Gap 3 L BUN 25 H Creatinine 0.74 Est GFR ( Amer) > 60 Est GFR (Non-Af Amer) > 60 Glucose 81 Calcium 8.4 Magnesium 2.0 Impressions: Chest X-Ray 01/23/18 05:00 IMPRESSION: 1. Interval increase of patchy left basilar airspace opacity. Persistent right basilar airspace opacity. These findings are concerning for bibasilar pneumonia. Findings could be related to aspiration. Assessment & Plan - Diagnosis (1) Acute on chronic respiratory failure with hypoxemia Is this a current diagnosis for this admission?: Yes Plan: Secondary to healthcare associated pneumonia. Patient was recently discharged about 2 weeks ago for community-acquired pneumonia. His respiratory status continues to improve. He is on 2L Oxygen chronically, currently requiring even less with Sat>92% (2) Pneumonia Qualifiers: Pneumonia type: aspiration pneumonia Aspiration pneumonia type: unspecified Laterality: right Lung location: upper lobe of lung Qualified Code(s): J69.0 - Pneumonitis due to inhalation of food and vomit Plan: We will continue vancomycin for possible healthcare associated pneumonia as well as cefepime. (3) Sepsis Qualifiers: Sepsis type: sepsis due to unspecified organism Qualified Code(s): A41.9 - Sepsis, unspecified organism Is this a current diagnosis for this admission?: Yes Plan: Patient meets current sepsis criteria with his tachycardia, tachypnea, fever as well as hypotension and pneumonia. This is resolving (4) Atrial fibrillation Qualifiers: Atrial fibrillation type: chronic Qualified Code(s): I48.2 - Chronic atrial fibrillation Is this a current diagnosis for this admission?: Yes Plan: Controlled. Dig level is low. Will continue to adjust meds as appropriate (5) HTN (hypertension) Qualifiers: Is this a current diagnosis for this admission?: Yes Plan: Cont current meds - Time Time Spent with patient: 15-24 minutes Anticipated discharge: Home Within: within 72 hours - Inpatient Certification Based on my medical assessment, after consideration of the patient's comorbidities, presenting symptoms, or acuity I expect that the services needed warrant INPATIENT care.: Yes Medical Necessity: Need For Continuous Telemetry Monitoring, Need for Nebulizer Therapy and Monitoring of Response, Need for IV Antibiotics
[2018-01-26] MEDS: ASPIRIN 325 MG TABLET PO SCH (10:58)
[2018-01-26] MEDS: GUAIFENESIN 600 MG TABLET.SA PO SCH ×2 (10:58→21:17)
[2018-01-26] MEDS: TAMSULOSIN HCL 0.4 MG CAP.SR.24H PO SCH (10:58)
[2018-01-26] MEDS: ENOXAPARIN SODIUM INJ 40 MG/0.4 ML DISP.SYRIN SUBCUT SCH (10:58)
[2018-01-26] MEDS: FAMOTIDINE 20 MG TABLET PO SCH ×2 (10:58→21:15)
[2018-01-26] MEDS: DIGOXIN 0.125 MG TABLET PO SCH (10:58)
[2018-01-26] MEDS: FLUTICASONE/SALMETEROL DISKUS 250-50 MCG/DOSE IH SCH ×2 (11:00→21:16)
[2018-01-26] MEDS: VANCOMYCIN HCL 1,000 MG in DEXTROSE 5%-WATER 250 ML IV SCH ×2 (11:01→21:17)
[2018-01-26] MEDS: HYDROCODONE/ACETAMINOPHEN 5-325 MG TABLET PO PRN (14:22)
[2018-01-26] MEDS: DILTIAZEM HCL 60 MG TABLET PO SCH ×2 (14:24→21:15)
[2018-01-26] MEDS: ATORVASTATIN CALCIUM 80 MG TABLET PO SCH (21:15)
[2018-01-27] MEDS: LEVALBUTEROL HCL NEB 0.63 MG/3 ML AMPUL NEB SCH ×6 (00:06→19:52)
[2018-01-27] MEDS: IPRATROPIUM BROMIDE 0.02% NEB 0.5 MG/2.5 ML AMPUL NEB SCH ×6 (00:07→19:53)
[2018-01-27] MEDS: LORAZEPAM 0.5 MG TABLET PO PRN ×2 (02:15→09:49)
[2018-01-27] MEDS: IPRATROPIUM/ALBUTEROL 0.5-2.5 MG/3 ML AMPUL NEB PRN ×2 (02:30→07:44)
[2018-01-27] MEDS: CEFEPIME HCL 2 GM in NORMAL SALINE 100 ML IV SCH ×2 (02:32→14:08)
[2018-01-27] MEDS: DILTIAZEM HCL 60 MG TABLET PO SCH ×3 (06:00→21:51)
[2018-01-27] MEDS: ENOXAPARIN SODIUM INJ 40 MG/0.4 ML DISP.SYRIN SUBCUT SCH (09:48)
[2018-01-27] MEDS: FAMOTIDINE 20 MG TABLET PO SCH ×2 (09:49→21:50)
[2018-01-27] MEDS: ASPIRIN 325 MG TABLET PO SCH (09:49)
[2018-01-27] MEDS: TAMSULOSIN HCL 0.4 MG CAP.SR.24H PO SCH (09:49)
[2018-01-27] MEDS: DIGOXIN 0.125 MG TABLET PO SCH (09:49)
[2018-01-27] MEDS: GUAIFENESIN 600 MG TABLET.SA PO SCH ×2 (09:49→21:50)
[2018-01-27] MEDS: FLUTICASONE/SALMETEROL DISKUS 250-50 MCG/DOSE IH SCH ×2 (09:54→21:50)
[2018-01-27] MEDS: VANCOMYCIN HCL 1,000 MG in DEXTROSE 5%-WATER 250 ML IV SCH ×2 (10:02→21:49)
[2018-01-27 10:35] LABS: VANCOMYCIN,TROUGH 18.4 ug/mL (5.0-20.0)
--- NOTE | 2018-01-27 14:04 | PDOC PROGRESS REPORT ---
Subjective Progress Note for:: 01/27/18 Subjective:: Patient still not sure if he's feeling better. He appears to be less anxious today Reason For Visit: [facility] Physical Exam Vital Signs: Temp Pulse Resp BP Pulse Ox 97.4 F 106 H 16 148/63 H 99 01/27/18 11:23 01/27/18 11:33 01/27/18 11:33 01/27/18 11:23 01/27/18 11:23 Intake & Output 01/26/18 01/27/18 01/28/18 06:59 06:59 06:59 Intake Total 1843 2009 Output Total 1750 1200 Balance 93 810 Weight 69.2 kg 69.9 kg General appearance: PRESENT: no acute distress, thin, other - Elderly Head exam: PRESENT: atraumatic Ear exam: PRESENT: normal external ear exam Neck exam: ABSENT: carotid bruit, JVD, lymphadenopathy, thyromegaly Respiratory exam: PRESENT: decreased breath sounds, rhonchi, unlabored. ABSENT : accessory muscle use, crackles, rales, retraction, tachypnea, wheezes Cardiovascular exam: PRESENT: irregular rhythm, other GI/Abdominal exam: PRESENT: normal bowel sounds, soft. ABSENT: distended, guarding, mass, organolmegaly, rebound, tenderness Rectal exam: PRESENT: deferred Extremities exam: PRESENT: calf tenderness Musculoskeletal exam: PRESENT: ambulatory Neurological exam: PRESENT: alert, awake, oriented to person, oriented to place , oriented to time Psychiatric exam: PRESENT: anxious Skin exam: PRESENT: abrasion Results Laboratory Results: 01/26/18 04:38 01/27/18 09:52 01/27/18 09:52 Creatinine 0.71 Est GFR ( Amer) > 60 Est GFR (Non-Af Amer) > 60 Impressions: Chest X-Ray 01/23/18 05:00 IMPRESSION: 1. Interval increase of patchy left basilar airspace opacity. Persistent right basilar airspace opacity. These findings are concerning for bibasilar pneumonia. Findings could be related to aspiration. Assessment & Plan - Diagnosis (1) Acute on chronic respiratory failure with hypoxemia Is this a current diagnosis for this admission?: Yes Plan: Secondary to healthcare associated pneumonia. Patient was recently discharged about 2 weeks ago for community-acquired pneumonia. His respiratory status continues to improve. He is on 2L Oxygen chronically, currently requiring even less with Sat>92%, Patient is somewhat anxious and sometimes works himself up but once it comes down his oxygen saturation has always been acceptable and is clinically recovering from the pneumonia. (2) Pneumonia Qualifiers: Pneumonia type: aspiration pneumonia Aspiration pneumonia type: unspecified Laterality: right Lung location: upper lobe of lung Qualified Code(s): J69.0 - Pneumonitis due to inhalation of food and vomit Plan: We will continue vancomycin for possible healthcare associated pneumonia as well as cefepime. His sputum culture yielded MRSA although patient has a prior history of same. I will continue vancomycin as well as cefepime and de- escalate antibiotics as appropriate (3) Sepsis Qualifiers: Sepsis type: sepsis due to unspecified organism Qualified Code(s): A41.9 - Sepsis, unspecified organism Is this a current diagnosis for this admission?: Yes Plan: Patient meets current sepsis criteria with his tachycardia, tachypnea, fever as well as hypotension and pneumonia. This is resolved (4) Atrial fibrillation Qualifiers: Atrial fibrillation type: chronic Qualified Code(s): I48.2 - Chronic atrial fibrillation Is this a current diagnosis for this admission?: Yes Plan: Controlled. Dig level is low. Will continue to adjust meds as appropriate We will continue his current medications as his heart rate has been controlled on the current regimen. (5) HTN (hypertension) Qualifiers: Is this a current diagnosis for this admission?: Yes Plan: Cont current meds and adjust as needed - Time Time Spent with patient: 15-24 minutes Medications reviewed and adjusted accordingly: Yes Anticipated discharge: Home Within: within 72 hours - Inpatient Certification Medical Necessity: Need for IV Antibiotics, Risk of Complication if Not Cared For in Hospital - Plan Summary Plan Summary: Discussed with patient and spouse and questions answered satisfactorily
[2018-01-27] MEDS: ATORVASTATIN CALCIUM 80 MG TABLET PO SCH (21:48)
[2018-01-27] MEDS: FLUTICASONE NASAL SPRAY 50 MCG/SPRY 120 SPRAY/16 GM NASL SCH (21:50)
[2018-01-28] MEDS: IPRATROPIUM BROMIDE 0.02% NEB 0.5 MG/2.5 ML AMPUL NEB SCH ×6 (00:03→20:07)
[2018-01-28] MEDS: LEVALBUTEROL HCL NEB 0.63 MG/3 ML AMPUL NEB SCH ×7 (00:03→23:59)
[2018-01-28] MEDS: LORAZEPAM 0.5 MG TABLET PO PRN ×2 (00:43→07:56)
[2018-01-28] MEDS: CEFEPIME HCL 2 GM in NORMAL SALINE 100 ML IV SCH (03:48)
[2018-01-28 04:40] LABS: HEMATOCRIT 28.4 % (37.9-51.0); HEMOGLOBIN 9.4 g/dL (13.5-17.0); MEAN CORPUSCULAR HEMOGLOBIN 26.6 pg (27.0-33.4); MEAN CORPUSCULAR HGB CONC 33.2 g/dL (32.0-36.0); MEAN CORPUSCULAR VOLUME 80 fl (80-97); PLATELET COUNT 201 10^3/uL (150-450); RED BLOOD COUNT 3.55 10^6/uL (4.35-5.55); RED CELL DISTRIBUTION WIDTH 21.1 % (11.5-14.0); WHITE BLOOD COUNT 8.2 10^3/uL (4.0-10.5)
[2018-01-28 05:13] LABS: ANION GAP 6 (5-19); BLOOD UREA NITROGEN 15 mg/dL (7-20); CALCIUM 8.8 mg/dL (8.4-10.2); CARBON DIOXIDE 26 mmol/L (22-30); CHLORIDE 107 mmol/L (98-107); GLUCOSE 98 mg/dL (75-110); POTASSIUM 4.2 mmol/L (3.6-5.0); SODIUM 138.7 mmol/L (137-145)
[2018-01-28] MEDS: DILTIAZEM HCL 60 MG TABLET PO SCH ×3 (06:43→22:08)
[2018-01-28] MEDS: ENOXAPARIN SODIUM INJ 40 MG/0.4 ML DISP.SYRIN SUBCUT SCH (10:09)
[2018-01-28] MEDS: GUAIFENESIN 600 MG TABLET.SA PO SCH ×2 (10:10→22:07)
[2018-01-28] MEDS: FAMOTIDINE 20 MG TABLET PO SCH ×2 (10:10→22:07)
[2018-01-28] MEDS: DIGOXIN 0.125 MG TABLET PO SCH (10:10)
[2018-01-28] MEDS: TAMSULOSIN HCL 0.4 MG CAP.SR.24H PO SCH (10:10)
[2018-01-28] MEDS: ASPIRIN 325 MG TABLET PO SCH (10:10)
[2018-01-28] MEDS: VANCOMYCIN HCL 1,000 MG in DEXTROSE 5%-WATER 250 ML IV SCH ×2 (10:11→22:10)
[2018-01-28] MEDS: FLUTICASONE/SALMETEROL DISKUS 250-50 MCG/DOSE IH SCH ×2 (10:11→22:08)
[2018-01-28] MEDS ORDERED: MORPHINE SULFATE 0.1 MG/ML ORAL SOLN 100 ML (NSY) PO PRN (11:36)
[2018-01-28] MEDS ORDERED: BISACODYL 10 MG SUPP.RECT PR PRN (12:04)
[2018-01-28] MEDS: MORPHINE SULFATE 10 MG/5 ML ORAL SOLUTION UDCUP PO PRN (13:03)
[2018-01-28] MEDS: IPRATROPIUM/ALBUTEROL 0.5-2.5 MG/3 ML AMPUL NEB PRN (14:35)
[2018-01-28] MEDS ORDERED: CEFEPIME HCL 2 GM in DEXTROSE 5%-WATER 100 ML IV SCH (15:00)
[2018-01-28] MEDS ORDERED: CEFEPIME HCL 2 GM in NORMAL SALINE 100 ML IV ONE (15:00)
[2018-01-28] MEDS: LORAZEPAM INJ 2 MG/1 ML VIAL IV PRN (16:03)
--- NOTE | 2018-01-28 16:50 | PDOC PROGRESS REPORT ---
Subjective Progress Note for:: 01/28/18 Subjective:: Patient feeling weak today. He is still coughing quite a bit. He gets very anxious if he can breathe well. No fevers or chills today. He is sleeping without too much difficulty. He continues to cough and is producing phlegm. No chest pain. Feeling a little bit constipated today and requesting a Dulcolax suppository that he uses at home. No urinary difficulty. Reason For Visit: [facility] Physical Exam Vital Signs: Temp Pulse Resp BP Pulse Ox 97.7 F 84 20 100/56 L 100 01/28/18 16:31 01/28/18 16:31 01/28/18 16:31 01/28/18 16:31 01/28/18 16:31 Intake & Output 01/27/18 01/28/18 01/29/18 06:59 06:59 06:59 Intake Total 2009 1617 Output Total 1200 400 Balance 810 1217 Weight 69.9 kg 71.4 kg General appearance: PRESENT: cooperative, mild distress, thin Head exam: PRESENT: atraumatic, normocephalic Eye exam: PRESENT: conjunctiva pink, EOMI. ABSENT: scleral icterus Ear exam: PRESENT: normal external ear exam. ABSENT: drainage Mouth exam: PRESENT: dry mucosa Respiratory exam: PRESENT: rhonchi, wheezes. ABSENT: retraction, tachypnea, unlabored Cardiovascular exam: PRESENT: RRR. ABSENT: systolic murmur Pulses: PRESENT: normal radial pulses GI/Abdominal exam: PRESENT: normal bowel sounds, soft. ABSENT: distended, tenderness Rectal exam: PRESENT: deferred Extremities exam: ABSENT: pedal edema Neurological exam: PRESENT: alert, awake, oriented to person, oriented to place , oriented to situation, CN II-XII grossly intact Psychiatric exam: PRESENT: anxious, appropriate affect Skin exam: PRESENT: dry, intact, warm Results Laboratory Results: 01/28/18 04:22 01/28/18 04:22 01/28/18 01/28/18 04:22 04:22 WBC 8.2 RBC 3.55 L Hgb 9.4 L Hct 28.4 L MCV 80 MCH 26.6 L MCHC 33.2 RDW 21.1 H Plt Count 201 Sodium 138.7 Potassium 4.2 Chloride 107 Carbon Dioxide 26 Anion Gap 6 BUN 15 Creatinine 0.70 Est GFR ( Amer) > 60 Est GFR (Non-Af Amer) > 60 Glucose 98 Calcium 8.8 01/23/18 11:07 Blood Blood Culture - Final NO GROWTH IN 5 DAYS 01/23/18 08:40 Blood Blood Culture - Final NO GROWTH IN 5 DAYS 01/24/18 15:45 Sputum Gram Stain - Final 01/24/18 15:45 Sputum Sputum Culture - Final Mrsa (Meth Resis Staph Aureus) C.albicans/C.dubliniensis Greatly Reduced Normal Brittny Impressions: Chest X-Ray 01/23/18 05:00 IMPRESSION: 1. Interval increase of patchy left basilar airspace opacity. Persistent right basilar airspace opacity. These findings are concerning for bibasilar pneumonia. Findings could be related to aspiration. Assessment & Plan - Diagnosis (1) Dyspnea and respiratory abnormalities Is this a current diagnosis for this admission?: Yes Plan: Related to pneumonia, underlying COPD. Patient has had some relief with Ativan 0.5 mg and so I will make that available every 4 hours as needed dyspnea with anxiety. I am also adding oral morphine 2.5 mg p.o. every 4 hours as needed dyspnea. He has already had 1 dose and it has helped him considerably. We will monitor for excessive sedation and titrate back on sedating meds if indicated. (2) Anxiety Is this a current diagnosis for this admission?: Yes Plan: We will continue with Ativan 0.5 mg tabs for anxiety related to dyspnea and also will make this available more frequently, every 4 hours as needed. (3) Acute on chronic respiratory failure with hypoxemia Is this a current diagnosis for this admission?: Yes Plan: Secondary to healthcare associated pneumonia, patient growing MRSA in his sputum. Continue O2 to keep his sats greater than 90%. Continue antibiotics. (4) COPD with acute exacerbation Is this a current diagnosis for this admission?: Yes Plan: Continue his home COPD meds. Secondary to wheezing will add prednisone 20 mg p.o. daily for 5 days. (5) Pneumonia Qualifiers: Aspiration pneumonia type: unspecified Laterality: right Lung location: upper lobe of lung Is this a current diagnosis for this admission?: Yes Plan: Continue Invanz. We will continue guaifenesin twice daily. Slowly improving. (6) Atrial fibrillation Qualifiers: Atrial fibrillation type: chronic Qualified Code(s): I48.2 - Chronic atrial fibrillation Is this a current diagnosis for this admission?: Yes Plan: Rate controlled. Continue current medications. Patient is not on anticoagulation for stroke prophylaxis. I cannot find the reason why in chart review. Will ask the patient and his family. (7) Constipation Qualifiers: Constipation type: drug induced constipation Qualified Code(s): K59.03 - Drug induced constipation Is this a current diagnosis for this admission?: Yes Plan: Probably related to opioid use chronically. Will add Dulcolax 10 mg suppository daily as needed constipation, this is his home medication works well for him.
[2018-01-28] MEDS: PREDNISONE 20 MG TABLET PO SCH (18:09)
[2018-01-28] MEDS: ATORVASTATIN CALCIUM 80 MG TABLET PO SCH (22:08)
[2018-01-28] MEDS: FLUTICASONE NASAL SPRAY 50 MCG/SPRY 120 SPRAY/16 GM NASL SCH (22:16)
[2018-01-29] MEDS: CEFEPIME HCL 2 GM in DEXTROSE 5%-WATER 50 ML IV SCH ×2 (02:19→15:13)
[2018-01-29] MEDS: IPRATROPIUM BROMIDE 0.02% NEB 0.5 MG/2.5 ML AMPUL NEB SCH ×7 (04:13→23:21)
[2018-01-29] MEDS: LEVALBUTEROL HCL NEB 0.63 MG/3 ML AMPUL NEB SCH ×6 (04:13→23:21)
[2018-01-29] MEDS: DILTIAZEM HCL 60 MG TABLET PO SCH ×3 (06:40→21:21)
[2018-01-29] MEDS: FAMOTIDINE 20 MG TABLET PO SCH ×2 (09:53→21:20)
[2018-01-29] MEDS: GUAIFENESIN 600 MG TABLET.SA PO SCH ×2 (09:54→21:26)
[2018-01-29] MEDS: ENOXAPARIN SODIUM INJ 40 MG/0.4 ML DISP.SYRIN SUBCUT SCH (09:54)
[2018-01-29] MEDS: TAMSULOSIN HCL 0.4 MG CAP.SR.24H PO SCH (09:54)
[2018-01-29] MEDS: ASPIRIN 325 MG TABLET PO SCH (09:54)
[2018-01-29] MEDS: DIGOXIN 0.125 MG TABLET PO SCH (09:54)
[2018-01-29] MEDS: FLUTICASONE/SALMETEROL DISKUS 250-50 MCG/DOSE IH SCH ×2 (09:54→21:25)
[2018-01-29] MEDS: VANCOMYCIN HCL 1,000 MG in DEXTROSE 5%-WATER 250 ML IV SCH ×2 (09:59→21:27)
[2018-01-29] MEDS: HYDROCODONE/ACETAMINOPHEN 5-325 MG TABLET PO PRN (10:33)
[2018-01-29] MEDS: PREDNISONE 20 MG TABLET PO SCH (17:11)
[2018-01-29] MEDS: MORPHINE SULFATE 10 MG/5 ML ORAL SOLUTION UDCUP PO PRN ×2 (17:22→21:22)
--- NOTE | 2018-01-29 18:13 | PDOC PROGRESS REPORT ---
Subjective Progress Note for:: 01/29/18 Subjective:: Patient breathing better. Cough improving. Still having some dyspnea and anxiety especially with movement. Slept reasonably well. Appetite still poor. No nausea vomiting. No dysuria. Patient feels a little constipated and will use a suppository tonight. Reason For Visit: [facility] Physical Exam Vital Signs: Temp Pulse Resp BP Pulse Ox 98.6 F 78 20 111/55 L 100 01/29/18 16:18 01/29/18 16:18 01/29/18 16:18 01/29/18 16:18 01/29/18 16:18 Intake & Output 01/28/18 01/29/18 01/30/18 06:59 06:59 06:59 Intake Total 1617 2268 430 Output Total 400 Balance 1217 2268 430 Weight 71.4 kg 70.9 kg General appearance: PRESENT: no acute distress, cooperative, thin Eye exam: PRESENT: conjunctiva pink, EOMI Mouth exam: PRESENT: moist Respiratory exam: PRESENT: rales, rhonchi, unlabored. ABSENT: wheezes Cardiovascular exam: PRESENT: RRR, systolic murmur Pulses: PRESENT: normal radial pulses GI/Abdominal exam: PRESENT: normal bowel sounds, soft. ABSENT: distended, tenderness Extremities exam: ABSENT: calf tenderness, pedal edema Musculoskeletal exam: PRESENT: normal inspection Neurological exam: PRESENT: alert, awake, oriented to person, oriented to place , oriented to situation, CN II-XII grossly intact Psychiatric exam: PRESENT: appropriate affect. ABSENT: anxious Skin exam: PRESENT: dry, intact, warm Results Laboratory Results: 01/28/18 04:22 01/28/18 04:22 Impressions: Chest X-Ray 01/23/18 05:00 IMPRESSION: 1. Interval increase of patchy left basilar airspace opacity. Persistent right basilar airspace opacity. These findings are concerning for bibasilar pneumonia. Findings could be related to aspiration. Assessment & Plan - Diagnosis (1) Dyspnea and respiratory abnormalities Is this a current diagnosis for this admission?: Yes Plan: Secondary to pneumonia and COPD. He has used Ativan and morphine and they are both helpful. Will continue to make the morphine 2.5 mg p.o. every 4 hours as needed dyspnea available. Ativan at 0.5 mg p.o. or IV every 4 hours as needed anxiety and dyspnea. (2) Anxiety Is this a current diagnosis for this admission?: Yes Plan: Improving, continue as needed Ativan, dose above. (3) Acute on chronic respiratory failure with hypoxemia Is this a current diagnosis for this admission?: Yes Plan: Secondary to COPD with exacerbation and pneumonia. Will treat underlying conditions as dictated in this note. Continue nasal cannula oxygen to keep sats greater than 90. (4) COPD with acute exacerbation Is this a current diagnosis for this admission?: Yes Plan: Continue prednisone 20 mg p.o. for a total of 5 days, continue other medications. Wheezing improved. To new nasal cannula oxygen for now. (5) Pneumonia Qualifiers: Aspiration pneumonia type: unspecified Laterality: right Lung location: upper lobe of lung Is this a current diagnosis for this admission?: Yes Plan: Yesterday's note it is we will continue Invanz, this is an air. We will continue vancomycin and cefepime and that was true yesterday as well. Clinically the patient is improving. Cell count was 23.6 on admission and is 8.2 yesterday. (6) Atrial fibrillation Qualifiers: Atrial fibrillation type: chronic Qualified Code(s): I48.2 - Chronic atrial fibrillation Is this a current diagnosis for this admission?: Yes Plan: Rate controlled, continue current medications. (7) Constipation Qualifiers: Constipation type: drug induced constipation Qualified Code(s): K59.03 - Drug induced constipation Is this a current diagnosis for this admission?: Yes Plan: Patient will continue to use his as needed Dulcolax. He is not concerned about constipation at this time. - Time Time Spent with patient: 15-24 minutes - Inpatient Certification Based on my medical assessment, after consideration of the patient's comorbidities, presenting symptoms, or acuity I expect that the services needed warrant INPATIENT care.: Yes I certify that my determination is in accordance with my understanding of Medicare's requirements for reasonable and necessary INPATIENT services [42 CFR 412.3e].: Yes Medical Necessity: Significant Comorbidiites Make Outpatient Treatment Too Risky , Need Close Monitoring Due to Risk of Patient Decompensation, Need for IV Antibiotics, Risk of Complication if Not Cared For in Hospital
[2018-01-29] MEDS: ATORVASTATIN CALCIUM 80 MG TABLET PO SCH (21:20)
[2018-01-29] MEDS: FLUTICASONE NASAL SPRAY 50 MCG/SPRY 120 SPRAY/16 GM NASL SCH (21:22)
[2018-01-30] MEDS ORDERED: CEFEPIME HCL 2 GM in DEXTROSE 5%-WATER 100 ML IV SCH (03:00)
[2018-01-30] MEDS: IPRATROPIUM BROMIDE 0.02% NEB 0.5 MG/2.5 ML AMPUL NEB SCH ×6 (04:22→23:26)
[2018-01-30] MEDS: LEVALBUTEROL HCL NEB 0.63 MG/3 ML AMPUL NEB SCH ×6 (04:22→23:26)
[2018-01-30] MEDS: DILTIAZEM HCL 60 MG TABLET PO SCH ×2 (05:49→13:39)
[2018-01-30] MEDS: GUAIFENESIN 600 MG TABLET.SA PO SCH ×2 (09:02→22:31)
[2018-01-30] MEDS: ASPIRIN 325 MG TABLET PO SCH (09:02)
[2018-01-30] MEDS: DIGOXIN 0.125 MG TABLET PO SCH (09:03)
[2018-01-30] MEDS: FAMOTIDINE 20 MG TABLET PO SCH ×3 (09:03→22:30)
[2018-01-30] MEDS: TAMSULOSIN HCL 0.4 MG CAP.SR.24H PO SCH (09:03)
[2018-01-30] MEDS: ENOXAPARIN SODIUM INJ 40 MG/0.4 ML DISP.SYRIN SUBCUT SCH (09:03)
[2018-01-30] MEDS: MORPHINE SULFATE 10 MG/5 ML ORAL SOLUTION UDCUP PO PRN (09:03)
[2018-01-30] MEDS: FLUTICASONE/SALMETEROL DISKUS 250-50 MCG/DOSE IH SCH ×2 (09:04→22:31)
[2018-01-30] MEDS: VANCOMYCIN HCL 1,000 MG in DEXTROSE 5%-WATER 250 ML IV SCH ×2 (09:08→22:32)
[2018-01-30] MEDS: HYDROCODONE/ACETAMINOPHEN 5-325 MG TABLET PO PRN (10:46)
[2018-01-30] MEDS ORDERED: HYDROCORTISONE ACETATE 25 MG SUPP.RECT PR PRN (10:51)
[2018-01-30] MEDS: GABAPENTIN 300 MG CAPSULE PO SCH ×2 (13:38→22:29)
[2018-01-30] MEDS: LORAZEPAM INJ 2 MG/1 ML VIAL IV PRN (13:44)
--- NOTE | 2018-01-30 15:11 | PDOC PROGRESS REPORT ---
Subjective Progress Note for:: 01/30/18 Subjective:: Pt is feeling better , still weak, still coughing, some phlegm production. Still with some dyspnea. Low-dose oral morphine does not seem to be helping as much as Ativan with the dyspnea. He is sleeping better. He had a bowel movement early this morning. Tells me that at home chronically he struggles with constipation. We discussed constipation in the context of chronic opioids which he uses for chronic pain. No dysuria. No fever or chills. Reason For Visit: [facility] Physical Exam Vital Signs: Temp Pulse Resp BP Pulse Ox 97.6 F 87 20 103/60 100 01/30/18 08:08 01/30/18 14:00 01/30/18 11:31 01/30/18 08:08 01/30/18 08:08 Intake & Output 01/29/18 01/30/18 01/31/18 06:59 06:59 06:59 Intake Total 2268 1135 237 Balance 2268 1135 237 Weight 70.9 kg 69.6 kg General appearance: PRESENT: no acute distress, cooperative, thin Head exam: PRESENT: atraumatic, normocephalic Eye exam: PRESENT: conjunctiva pink, EOMI Ear exam: PRESENT: normal external ear exam Mouth exam: PRESENT: moist, neck supple Neck exam: ABSENT: lymphadenopathy Respiratory exam: PRESENT: decreased breath sounds, rhonchi. ABSENT: tachypnea , unlabored, wheezes Cardiovascular exam: PRESENT: RRR, systolic murmur. ABSENT: bradycardia GI/Abdominal exam: PRESENT: normal bowel sounds, soft. ABSENT: distended, guarding, tenderness Rectal exam: PRESENT: deferred Extremities exam: ABSENT: pedal edema Musculoskeletal exam: PRESENT: normal inspection Neurological exam: PRESENT: alert, awake, oriented to person, oriented to place , oriented to situation, CN II-XII grossly intact Psychiatric exam: PRESENT: appropriate affect. ABSENT: anxious Skin exam: PRESENT: dry, warm Results Laboratory Results: 01/28/18 04:22 01/28/18 04:22 Impressions: Chest X-Ray 01/23/18 05:00 IMPRESSION: 1. Interval increase of patchy left basilar airspace opacity. Persistent right basilar airspace opacity. These findings are concerning for bibasilar pneumonia. Findings could be related to aspiration. Assessment & Plan - Diagnosis (1) Dyspnea and respiratory abnormalities Is this a current diagnosis for this admission?: Yes Plan: Stopping oral morphine. We will continue with Ativan for anxiety with dyspnea. We will continue to treat his MRSA pneumonia and COPD exacerbation. (2) Anxiety Is this a current diagnosis for this admission?: Yes Plan: Continue with Ativan. This has been effective and there have been no adverse sequelae. Anxiety seems to be related to dyspnea. (3) Acute on chronic respiratory failure with hypoxemia Is this a current diagnosis for this admission?: Yes Plan: Secondary to COPD with exacerbation and now with pneumonia. We will continue nasal cannula oxygen to keep sats greater than 90%. (4) COPD with acute exacerbation Is this a current diagnosis for this admission?: Yes Plan: Continue on prednisone, continue bronchodilators, nasal cannula oxygen, antibiotics. (5) Pneumonia Qualifiers: Aspiration pneumonia type: unspecified Laterality: right Lung location: upper lobe of lung Is this a current diagnosis for this admission?: Yes Plan: Patient is growing MRSA in his sputum. He will need 10-14 days of IV vancomycin. Cultures are negative. Consult for PICC line has been placed. Discharge planning consult has been placed. (6) Atrial fibrillation Qualifiers: Atrial fibrillation type: chronic Qualified Code(s): I48.2 - Chronic atrial fibrillation Is this a current diagnosis for this admission?: Yes Plan: Rate has been well controlled. Continue diltiazem and digoxin. Will check dig level. (7) Constipation Qualifiers: Constipation type: drug induced constipation Qualified Code(s): K59.03 - Drug induced constipation Is this a current diagnosis for this admission?: Yes Plan: Patient agrees to add senna. I have added senna 1 tab p.o. twice daily. We can up titrate until he has regular bowel movements. We will continue the as needed Dulcolax. - Time Time Spent with patient: 25-34 minutes Medications reviewed and adjusted accordingly: Yes Anticipated discharge: SNF - Inpatient Certification Medical Necessity: Need for IV Antibiotics
[2018-01-30] MEDS ORDERED: (PENDING PHARMACY ID) (Ranitidine Hcl [Zantac 150 Mg Tablet] 150 MG) PO SCH (16:00)
[2018-01-30] MEDS: SENNOSIDES/DOCUSATE 8.6-50 MG 1 EACH TABLET PO SCH (17:54)
[2018-01-30] MEDS: PREDNISONE 20 MG TABLET PO SCH (17:54)
[2018-01-30] MEDS: ATORVASTATIN CALCIUM 80 MG TABLET PO SCH (22:30)
[2018-01-30] MEDS ORDERED: VANCOMYCIN HCL INJ 1000 MG VIAL ONE (22:30)
[2018-01-30] MEDS: FLUTICASONE NASAL SPRAY 50 MCG/SPRY 120 SPRAY/16 GM NASL SCH (22:31)
[2018-01-31] MEDS: DILTIAZEM HCL 60 MG TABLET PO SCH ×2 (00:50→06:14)
[2018-01-31] MEDS: LEVALBUTEROL HCL NEB 0.63 MG/3 ML AMPUL NEB SCH ×5 (03:49→20:31)
[2018-01-31] MEDS: IPRATROPIUM BROMIDE 0.02% NEB 0.5 MG/2.5 ML AMPUL NEB SCH ×5 (03:49→20:31)
[2018-01-31] MEDS: GABAPENTIN 300 MG CAPSULE PO SCH ×3 (06:13→23:01)
[2018-01-31] MEDS: FAMOTIDINE 20 MG TABLET PO SCH ×3 (07:58→15:54)
[2018-01-31] MEDS: ASPIRIN 325 MG TABLET PO SCH (10:08)
[2018-01-31] MEDS: SENNOSIDES/DOCUSATE 8.6-50 MG 1 EACH TABLET PO SCH ×2 (10:08→17:13)
[2018-01-31] MEDS: GUAIFENESIN 600 MG TABLET.SA PO SCH ×2 (10:11→23:02)
[2018-01-31] MEDS: VANCOMYCIN HCL 1,000 MG in DEXTROSE 5%-WATER 250 ML IV SCH ×2 (10:12→22:58)
[2018-01-31] MEDS: DIGOXIN 0.125 MG TABLET PO SCH (10:12)
[2018-01-31] MEDS: TAMSULOSIN HCL 0.4 MG CAP.SR.24H PO SCH (10:12)
[2018-01-31] MEDS: FLUTICASONE/SALMETEROL DISKUS 250-50 MCG/DOSE IH SCH ×2 (10:13→22:59)
--- NOTE | 2018-01-31 10:43 | PDOC PROGRESS REPORT ---
Subjective Progress Note for:: 01/31/18 Subjective:: Pls much beetter today, less anxious Reason For Visit: [facility] Physical Exam Vital Signs: Temp Pulse Resp BP Pulse Ox 97.8 F 82 18 89/50 L 100 01/31/18 08:12 01/31/18 08:12 01/31/18 08:12 01/31/18 08:12 01/31/18 08:12 Intake & Output 01/30/18 01/31/18 02/01/18 06:59 06:59 06:59 Intake Total 1135 1307 Output Total 250 Balance 1135 1057 Weight 69.6 kg 74.6 kg General appearance: PRESENT: no acute distress, thin Head exam: PRESENT: atraumatic Ear exam: PRESENT: normal external ear exam Respiratory exam: PRESENT: decreased breath sounds, rhonchi, unlabored. ABSENT : accessory muscle use, chest wall tenderness, tachypnea, wheezes Cardiovascular exam: PRESENT: irregular rhythm, +S1, +S2. ABSENT: diastolic murmur, rubs, systolic murmur Pulses: PRESENT: normal dorsalis pedis pul GI/Abdominal exam: PRESENT: normal bowel sounds, soft. ABSENT: distended, guarding, mass, organolmegaly, rebound, tenderness Rectal exam: PRESENT: deferred Extremities exam: ABSENT: calf tenderness Musculoskeletal exam: PRESENT: ambulatory Neurological exam: PRESENT: alert, awake, oriented to person, oriented to place , oriented to time Psychiatric exam: PRESENT: appropriate affect, normal mood. ABSENT: homicidal ideation, suicidal ideation Results Laboratory Results: 01/28/18 04:22 01/28/18 04:22 Impressions: Chest X-Ray 01/23/18 05:00 IMPRESSION: 1. Interval increase of patchy left basilar airspace opacity. Persistent right basilar airspace opacity. These findings are concerning for bibasilar pneumonia. Findings could be related to aspiration. Assessment & Plan - Diagnosis (1) Acute on chronic respiratory failure with hypoxemia Is this a current diagnosis for this admission?: Yes Plan: Secondary to healthcare associated pneumonia. Patient was recently discharged about 2 weeks ago for community-acquired pneumonia. His respiratory status continues to improve. He is on 2L Oxygen chronically, currently requiring even less with Sat>92%, Patient is somewhat anxious and sometimes works himself up but once it comes down his oxygen saturation has always been acceptable and is clinically recovering from the pneumonia. Will continue his current Oxygen (2) Pneumonia Qualifiers: Aspiration pneumonia type: unspecified Laterality: right Lung location: upper lobe of lung Is this a current diagnosis for this admission?: Yes Plan: Patient has received 9 days of Vancomycin. Sputum yielded MRSA with negative blood cultures and clinical improvement. Will plan on 10 days of IV Vancomycin then DC. If further antibiotic treatment is needed can place him on Bactrim PO for additional 4 days to complete 14days of treatment otherwise no further abx treatment needed. I have DC PICC line ordered for today (3) Sepsis Qualifiers: Sepsis type: sepsis due to unspecified organism Qualified Code(s): A41.9 - Sepsis, unspecified organism Is this a current diagnosis for this admission?: Yes Plan: This is resolved (4) Atrial fibrillation Qualifiers: Atrial fibrillation type: chronic Qualified Code(s): I48.2 - Chronic atrial fibrillation Is this a current diagnosis for this admission?: Yes Plan: Controlled. We will continue his current medications as his heart rate has been controlled on the current regimen. (5) HTN (hypertension) Qualifiers: Is this a current diagnosis for this admission?: Yes Plan: Cont current meds and adjust as needed - Time Time Spent with patient: 15-24 minutes Medications reviewed and adjusted accordingly: Yes Anticipated discharge: SNF
[2018-01-31] MEDS: ENOXAPARIN SODIUM INJ 40 MG/0.4 ML DISP.SYRIN SUBCUT SCH (11:57)
[2018-01-31] MEDS ORDERED: DILTIAZEM HCL 30 MG TABLET PO ONE (14:30)
[2018-01-31] MEDS: HYDROCODONE/ACETAMINOPHEN 5-325 MG TABLET PO PRN (14:46)
[2018-01-31] MEDS: PREDNISONE 20 MG TABLET PO SCH (17:14)
[2018-01-31] MEDS: FLUTICASONE NASAL SPRAY 50 MCG/SPRY 120 SPRAY/16 GM NASL SCH (22:59)
[2018-01-31] MEDS: ATORVASTATIN CALCIUM 80 MG TABLET PO SCH (23:01)
[2018-01-31] MEDS: DILTIAZEM HCL 30 MG TABLET PO SCH (23:02)
[2018-02-01] MEDS: LEVALBUTEROL HCL NEB 0.63 MG/3 ML AMPUL NEB SCH ×7 (00:22→23:59)
[2018-02-01] MEDS: IPRATROPIUM BROMIDE 0.02% NEB 0.5 MG/2.5 ML AMPUL NEB SCH ×6 (00:22→19:38)
[2018-02-01 05:14] LABS: ABSOLUTE LYMPHOCYTES (AUTO) 1.2 10^3/uL (0.5-4.7); ABSOLUTE MONOCYTES (AUTO) 0.8 10^3/uL (0.1-1.4); ABSOLUTE NEUT (AUTO) 4.5 10^3/uL (1.7-8.2); BASOPHILS % (AUTO) 0.6 % (0-2); EOSINOPHILS % (AUTO) 0.1 % (0-6); HEMATOCRIT 28.3 % (37.9-51.0); HEMOGLOBIN 9.4 g/dL (13.5-17.0); LYMPHOCYTES % (AUTO) 18.4 % (13-45); MEAN CORPUSCULAR HEMOGLOBIN 26.5 pg (27.0-33.4); MEAN CORPUSCULAR HGB CONC 33.1 g/dL (32.0-36.0); MEAN CORPUSCULAR VOLUME 80 fl (80-97); MONOCYTES % (AUTO) 12.3 % (3-13); PLATELET COUNT 297 10^3/uL (150-450); RED BLOOD COUNT 3.53 10^6/uL (4.35-5.55); RED CELL DISTRIBUTION WIDTH 20.9 % (11.5-14.0); SEGMENTED NEUTROPHILS % (AUTO) 68.6 % (42-78); TOTAL CELLS COUNTED % (AUTO) 100 %; WHITE BLOOD COUNT 6.5 10^3/uL (4.0-10.5)
[2018-02-01] MEDS: GABAPENTIN 300 MG CAPSULE PO SCH ×3 (05:26→22:05)
[2018-02-01] MEDS: DILTIAZEM HCL 30 MG TABLET PO SCH ×3 (05:27→22:06)
[2018-02-01] MEDS: HYDROCODONE/ACETAMINOPHEN 5-325 MG TABLET PO PRN ×2 (05:31→19:55)
[2018-02-01 05:32] LABS: ANION GAP 6 (5-19); BLOOD UREA NITROGEN 20 mg/dL (7-20); CALCIUM 8.9 mg/dL (8.4-10.2); CARBON DIOXIDE 28 mmol/L (22-30); CHLORIDE 106 mmol/L (98-107); GLUCOSE 121 mg/dL (75-110); POTASSIUM 4.7 mmol/L (3.6-5.0); SODIUM 139.9 mmol/L (137-145)
[2018-02-01] MEDS: FAMOTIDINE 20 MG TABLET PO SCH ×2 (08:03→16:06)
[2018-02-01] MEDS: GUAIFENESIN 600 MG TABLET.SA PO SCH ×2 (09:07→22:10)
[2018-02-01] MEDS: SENNOSIDES/DOCUSATE 8.6-50 MG 1 EACH TABLET PO SCH ×2 (09:07→17:12)
[2018-02-01] MEDS: TAMSULOSIN HCL 0.4 MG CAP.SR.24H PO SCH (09:07)
[2018-02-01] MEDS: ENOXAPARIN SODIUM INJ 40 MG/0.4 ML DISP.SYRIN SUBCUT SCH (09:07)
[2018-02-01] MEDS: ASPIRIN 325 MG TABLET PO SCH (09:07)
[2018-02-01] MEDS: DIGOXIN 0.125 MG TABLET PO SCH (09:07)
--- NOTE | 2018-02-01 10:16 | PDOC PROGRESS REPORT ---
Subjective Progress Note for:: 02/01/18 Subjective:: Pt states that he is coughing up a little phlegm. Pt states that he had a bowel movement on Wednesday. Reason For Visit: [facility] Physical Exam Vital Signs: Temp Pulse Resp BP Pulse Ox 98.3 F 91 23 H 113/65 98 02/01/18 07:13 02/01/18 07:53 02/01/18 07:53 02/01/18 07:13 02/01/18 07:53 Intake & Output 01/31/18 02/01/18 02/02/18 06:59 06:59 06:59 Intake Total 1307 1572 Output Total 250 775 Balance 1057 797 Weight 74.6 kg 75 kg General appearance: PRESENT: no acute distress, thin, well-nourished Head exam: PRESENT: atraumatic, normocephalic Eye exam: PRESENT: conjunctiva pink, EOMI. ABSENT: scleral icterus Ear exam: PRESENT: normal external ear exam Mouth exam: PRESENT: moist, tongue midline Neck exam: ABSENT: carotid bruit, JVD, lymphadenopathy, thyromegaly Respiratory exam: PRESENT: other - F. ABSENT: rales, rhonchi, wheezes Cardiovascular exam: PRESENT: RRR. ABSENT: diastolic murmur, rubs, systolic murmur Pulses: PRESENT: normal dorsalis pedis pul Vascular exam: PRESENT: normal capillary refill GI/Abdominal exam: PRESENT: normal bowel sounds, soft. ABSENT: distended, guarding, mass, organolmegaly, rebound, tenderness Rectal exam: PRESENT: deferred Extremities exam: PRESENT: full ROM. ABSENT: calf tenderness, clubbing, pedal edema Musculoskeletal exam: PRESENT: full ROM Neurological exam: PRESENT: alert, awake, oriented to person, oriented to place , oriented to time, oriented to situation, CN II-XII grossly intact. ABSENT: motor sensory deficit Psychiatric exam: PRESENT: appropriate affect, normal mood. ABSENT: homicidal ideation, suicidal ideation Skin exam: PRESENT: dry, intact, warm. ABSENT: cyanosis, rash Results Laboratory Results: 02/01/18 04:46 02/01/18 04:46 02/01/18 02/01/18 04:46 04:46 WBC 6.5 RBC 3.53 L Hgb 9.4 L Hct 28.3 L MCV 80 MCH 26.5 L MCHC 33.1 RDW 20.9 H Plt Count 297 Seg Neutrophils % 68.6 Lymphocytes % 18.4 Monocytes % 12.3 Eosinophils % 0.1 Basophils % 0.6 Absolute Neutrophils 4.5 Absolute Lymphocytes 1.2 Absolute Monocytes 0.8 Absolute Eosinophils 0.0 Absolute Basophils 0.0 Sodium 139.9 Potassium 4.7 Chloride 106 Carbon Dioxide 28 Anion Gap 6 BUN 20 Creatinine 0.74 Est GFR ( Amer) > 60 Est GFR (Non-Af Amer) > 60 Glucose 121 H Calcium 8.9 Impressions: Chest X-Ray 01/23/18 05:00 IMPRESSION: 1. Interval increase of patchy left basilar airspace opacity. Persistent right basilar airspace opacity. These findings are concerning for bibasilar pneumonia. Findings could be related to aspiration. Assessment & Plan - Diagnosis (1) Acute on chronic respiratory failure with hypoxemia Is this a current diagnosis for this admission?: Yes Plan: Secondary to MRSA Pneumonia: Will continue Vancomycin. Will have PICC placed for Antibiotics. (2) Pneumonia Qualifiers: Aspiration pneumonia type: unspecified Laterality: right Lung location: upper lobe of lung Is this a current diagnosis for this admission?: Yes Plan: Secondary to MRSA Pneumonia: Will continue Vancomyin. Will have PICC line placed. (3) Atrial fibrillation Qualifiers: Atrial fibrillation type: chronic Qualified Code(s): I48.2 - Chronic atrial fibrillation Is this a current diagnosis for this admission?: Yes Plan: Will continue current medication. (4) Sepsis Qualifiers: Sepsis type: sepsis due to unspecified organism Qualified Code(s): A41.9 - Sepsis, unspecified organism Is this a current diagnosis for this admission?: Yes Plan: Secondary to MRSA Pneumonia: Will continue Vancomycin. (5) HTN (hypertension) Qualifiers: Is this a current diagnosis for this admission?: Yes Plan: Will continue current treatment plan. (6) Hypotension Is this a current diagnosis for this admission?: Yes Plan: Cardiazem discreased due to low blood pressure. (7) DVT prophylaxis Is this a current diagnosis for this admission?: Yes Plan: Lovenox. - Time Time Spent with patient: 15-24 minutes
[2018-02-01 10:47] LABS: VANCOMYCIN,TROUGH 21.9 ug/mL (5.0-20.0)
[2018-02-01] MEDS: FLUTICASONE/SALMETEROL DISKUS 250-50 MCG/DOSE IH SCH ×2 (11:10→22:13)
[2018-02-01] MEDS: VANCOMYCIN HCL 1,000 MG in DEXTROSE 5%-WATER 250 ML IV SCH (11:10)
--- NOTE | 2018-02-01 13:47 | RADIOLOGY REPORT (SQ) ---
EXAM DESCRIPTION: PICC INSERTION; FLUORO/CV PLACEMENT COMPLETED DATE/TIME: 02/01/2018 1:07 pm REASON FOR STUDY: Antibiotics; IV ABX COMPARISON: None. FLUOROSCOPY TIME: 5 seconds 2 images saved to PACS. TECHNIQUE: Fluoroscopic and ultrasound guided PICC placement. LIMITATIONS: None. PROCEDURE: After written consent and assessment were obtained, the patient was brought into the fluo roscopy room and place supine on the table. Ultrasound was used on the patient's right arm for PICC access. The right arm was prepped and draped in a sterile fashion along with the ultrasound probe. Th e entry site was anesthetized with 1% lidocaine. A 21 gauge 7 cm needle was advanced through the skin and into the basilic vein under live ultrasound guidance. An ultrasound image was saved to PACS con firming access site. A .018 guide wire was then inserted through the needle and into the venous syst em. The needle was the removed and an 11 blade scalpel was used to make a 1cm skin incision. A 5 fr peel-away sheath was advanced over the wire and into the venous system. A measurement was then made u sing the existing wire and live fluoroscopic guidance. The wire was then removed and the trimmed. The PICC was advanced through the peel-away sheath and into the venous system. The peel-away sheath was removed and the catheter was adhered to the patients arm with a stat lock. The catheter was then aspi rated and flushed and a sterile bandage was placed over the access site. A fluoroscopic spot image w as saved to PACS confirming the catheter tip within the superior vena cava. IMPRESSION: SUCCESSFUL PLACEMENT OF A 5 FR DUAL LUMEN 33 CM PICC IN THE RIGHT BASILIC VEIN. COMMENT: Patient medication list reviewed: Yes- Quality ID# 130:Eligible professional attests to doc umenting in the medical record they obtained, updated, or reviewed the patient's current medications. . Quality ID 145: Final reports for procedures using fluoroscopy that document radiation exposure munira fer, or exposure time and number of fluorographic images (if radiation exposure indices are not avail able) Quality ID #76: The patient was prepped and draped using maximum sterile barrier technique including cap, mask, sterile gown, sterile gloves, a large sterile sheet, hand hygiene, and 2% Chlorhexidine fo r cutaneous antisepsis. When ultrasound is used, sterile ultrasound techniques are followed requiring sterile gel and sterile probes. TECHNICAL DOCUMENTATION: JOB ID: [id number] [employer]- All Rights Reserved Reading location - IP/workstation name: [email or web address]
[2018-02-01] MEDS ORDERED: NORMAL SALINE 10 ML SDV (AFTER EACH USE) IV PRN (14:05)
--- NOTE | 2018-02-01 14:06 | RADIOLOGY REPORT (SQ) ---
EXAM DESCRIPTION: U/S GUIDE FOR VASCULAR ACCESS COMPLETE DATE/TIME: 02/01/2018 1:10 pm REASON FOR STUDY: IV ABX FINDINGS: Please see combined report for performance of procedure and radiologic supervision and int erpretation. IMPRESSION: Please see combined report for performance of procedure and radiologic supervision and i nterpretation. Reading location - IP/workstation name: [email or web address]
[2018-02-01] MEDS: PREDNISONE 20 MG TABLET PO SCH (17:12)
[2018-02-01] MEDS: VANCOMYCIN HCL 750 MG in DEXTROSE 5%-WATER 250 ML IV SCH (22:05)
[2018-02-01] MEDS: ATORVASTATIN CALCIUM 80 MG TABLET PO SCH (22:06)
[2018-02-01] MEDS: NORMAL SALINE 10 ML SDV (SCHEDULED) IV SCH (22:07)
[2018-02-01] MEDS: FLUTICASONE NASAL SPRAY 50 MCG/SPRY 120 SPRAY/16 GM NASL SCH (22:13)
[2018-02-02] MEDS: LEVALBUTEROL HCL NEB 0.63 MG/3 ML AMPUL NEB SCH ×5 (03:56→20:07)
[2018-02-02] MEDS: IPRATROPIUM BROMIDE 0.02% NEB 0.5 MG/2.5 ML AMPUL NEB SCH ×6 (03:56→20:07)
[2018-02-02] MEDS: GABAPENTIN 300 MG CAPSULE PO SCH ×2 (05:30→16:58)
[2018-02-02] MEDS: DILTIAZEM HCL 30 MG TABLET PO SCH ×2 (05:30→17:00)
[2018-02-02 05:44] LABS: ABSOLUTE LYMPHOCYTES (AUTO) 1.5 10^3/uL (0.5-4.7); ABSOLUTE MONOCYTES (AUTO) 0.7 10^3/uL (0.1-1.4); BASOPHILS % (AUTO) 0.3 % (0-2); HEMATOCRIT 28.1 % (37.9-51.0); HEMOGLOBIN 9.1 g/dL (13.5-17.0); LYMPHOCYTES % (AUTO) 17.9 % (13-45); MEAN CORPUSCULAR HEMOGLOBIN 26.4 pg (27.0-33.4); MEAN CORPUSCULAR HGB CONC 32.4 g/dL (32.0-36.0); MEAN CORPUSCULAR VOLUME 82 fl (80-97); MONOCYTES % (AUTO) 8.9 % (3-13); PLATELET COUNT 359 10^3/uL (150-450); RED BLOOD COUNT 3.45 10^6/uL (4.35-5.55); RED CELL DISTRIBUTION WIDTH 20.9 % (11.5-14.0); SEGMENTED NEUTROPHILS % (AUTO) 72.9 % (42-78); TOTAL CELLS COUNTED % (AUTO) 100 %; WHITE BLOOD COUNT 8.2 10^3/uL (4.0-10.5)
[2018-02-02 06:02] LABS: ALANINE AMINOTRANSFERASE 29 U/L (21-72); ALBUMIN 2.9 g/dL (3.5-5.0); ALKALINE PHOSPHATASE 84 U/L (38-126); ANION GAP 8 (5-19); ASPARTATE AMINO TRANSFERASE 17 U/L (17-59); BILIRUBIN,TOTAL 0.1 mg/dL (0.2-1.3); BLOOD UREA NITROGEN 19 mg/dL (7-20); CALCIUM 9.2 mg/dL (8.4-10.2); CARBON DIOXIDE 31 mmol/L (22-30); CHLORIDE 101 mmol/L (98-107); GLUCOSE 100 mg/dL (75-110); POTASSIUM 4.6 mmol/L (3.6-5.0); SODIUM 139.9 mmol/L (137-145); TOTAL PROTEIN 5.4 g/dL (6.3-8.2)
[2018-02-02] MEDS: FAMOTIDINE 20 MG TABLET PO SCH ×2 (07:55→16:59)
--- NOTE | 2018-02-02 10:33 | PDOC PROGRESS REPORT ---
Subjective Progress Note for:: 02/02/18 Subjective:: Pt states that he is feeling much better today. Patient states that he is coughing up some phlegm. Reason For Visit: [facility] Physical Exam Vital Signs: Temp Pulse Resp BP Pulse Ox 98.9 F 92 16 111/51 L 100 02/02/18 08:51 02/02/18 08:51 02/02/18 08:51 02/02/18 08:51 02/02/18 08:51 Intake & Output 02/01/18 02/02/18 02/03/18 06:59 06:59 06:59 Intake Total 1572 1834 Output Total 775 300 Balance 797 1534 Weight 75 kg 73 kg General appearance: PRESENT: no acute distress, thin, well-developed Head exam: PRESENT: atraumatic, normocephalic Eye exam: PRESENT: conjunctiva pink, EOMI. ABSENT: scleral icterus Ear exam: PRESENT: normal external ear exam Mouth exam: PRESENT: moist, tongue midline Neck exam: ABSENT: carotid bruit, JVD, lymphadenopathy, thyromegaly Respiratory exam: PRESENT: other - coarse breath sounds, diminished at bases.. ABSENT: rales, rhonchi, wheezes Cardiovascular exam: PRESENT: RRR. ABSENT: diastolic murmur, rubs, systolic murmur Pulses: PRESENT: normal dorsalis pedis pul Vascular exam: PRESENT: normal capillary refill GI/Abdominal exam: PRESENT: normal bowel sounds, soft. ABSENT: distended, guarding, mass, organolmegaly, rebound, tenderness Rectal exam: PRESENT: deferred Extremities exam: PRESENT: full ROM. ABSENT: calf tenderness, clubbing, pedal edema Musculoskeletal exam: PRESENT: full ROM Neurological exam: PRESENT: alert, awake, oriented to person, oriented to place , oriented to time, oriented to situation, CN II-XII grossly intact. ABSENT: motor sensory deficit Psychiatric exam: PRESENT: appropriate affect, normal mood. ABSENT: homicidal ideation, suicidal ideation Skin exam: PRESENT: dry, intact, warm. ABSENT: cyanosis, rash Results Laboratory Results: 02/02/18 04:40 02/02/18 04:40 02/02/18 02/02/18 04:40 04:40 WBC 8.2 RBC 3.45 L Hgb 9.1 L Hct 28.1 L MCV 82 MCH 26.4 L MCHC 32.4 RDW 20.9 H Plt Count 359 Seg Neutrophils % 72.9 Lymphocytes % 17.9 Monocytes % 8.9 Eosinophils % 0.0 Basophils % 0.3 Absolute Neutrophils 6.0 Absolute Lymphocytes 1.5 Absolute Monocytes 0.7 Absolute Eosinophils 0.0 Absolute Basophils 0.0 Sodium 139.9 Potassium 4.6 Chloride 101 Carbon Dioxide 31 H Anion Gap 8 BUN 19 Creatinine 0.76 Est GFR ( Amer) > 60 Est GFR (Non-Af Amer) > 60 Glucose 100 Calcium 9.2 Magnesium 2.1 Total Bilirubin 0.1 L AST 17 ALT 29 Alkaline Phosphatase 84 Total Protein 5.4 L Albumin 2.9 L Impressions: Chest X-Ray 01/23/18 05:00 IMPRESSION: 1. Interval increase of patchy left basilar airspace opacity. Persistent right basilar airspace opacity. These findings are concerning for bibasilar pneumonia. Findings could be related to aspiration. Guidance Fluoroscopy 02/01/18 00:00 IMPRESSION: SUCCESSFUL PLACEMENT OF A 5 FR DUAL LUMEN 33 CM PICC IN THE RIGHT BASILIC VEIN. Interventional Vascular Procedure 02/01/18 00:00 IMPRESSION: Please see combined report for performance of procedure and radiologic supervision and interpretation. PICC Line Insertion 02/01/18 00:00 IMPRESSION: SUCCESSFUL PLACEMENT OF A 5 FR DUAL LUMEN 33 CM PICC IN THE RIGHT BASILIC VEIN. Assessment & Plan - Diagnosis (1) Acute on chronic respiratory failure with hypoxemia Is this a current diagnosis for this admission?: Yes Plan: Secondary to MRSA Pneumonia: Will continue Vancomycin. PICC placed for Antibiotics. (2) Pneumonia Qualifiers: Aspiration pneumonia type: unspecified Laterality: right Lung location: upper lobe of lung Is this a current diagnosis for this admission?: Yes Plan: Secondary to MRSA Pneumonia: Will continue Vancomyin. PICC line placed. (3) Atrial fibrillation Qualifiers: Atrial fibrillation type: chronic Qualified Code(s): I48.2 - Chronic atrial fibrillation Is this a current diagnosis for this admission?: Yes Plan: Will continue current medication. (4) Sepsis Qualifiers: Sepsis type: sepsis due to unspecified organism Qualified Code(s): A41.9 - Sepsis, unspecified organism Is this a current diagnosis for this admission?: Yes Plan: Secondary to MRSA Pneumonia: Will continue Vancomycin. (5) HTN (hypertension) Qualifiers: Is this a current diagnosis for this admission?: Yes Plan: Will continue current treatment plan. (6) Hypotension Is this a current diagnosis for this admission?: Yes Plan: Blood pressure has improved. We will continue to monitor. (7) DVT prophylaxis Is this a current diagnosis for this admission?: Yes Plan: Lovenox.
[2018-02-02] MEDS: TAMSULOSIN HCL 0.4 MG CAP.SR.24H PO SCH (10:48)
[2018-02-02] MEDS: GUAIFENESIN 600 MG TABLET.SA PO SCH (10:48)
[2018-02-02] MEDS: DIGOXIN 0.125 MG TABLET PO SCH (10:48)
[2018-02-02] MEDS: FLUTICASONE/SALMETEROL DISKUS 250-50 MCG/DOSE IH SCH (10:49)
[2018-02-02] MEDS: ASPIRIN 325 MG TABLET PO SCH (10:49)
[2018-02-02] MEDS: NORMAL SALINE 10 ML SDV (SCHEDULED) IV SCH (10:50)
[2018-02-02] MEDS: VANCOMYCIN HCL 750 MG in DEXTROSE 5%-WATER 250 ML IV SCH (10:50)
[2018-02-02] MEDS: ENOXAPARIN SODIUM INJ 40 MG/0.4 ML DISP.SYRIN SUBCUT SCH (10:51)
[2018-02-02] MEDS: SENNOSIDES/DOCUSATE 8.6-50 MG 1 EACH TABLET PO SCH ×2 (10:53→17:04)
[2018-02-02] MEDS: HYDROCODONE/ACETAMINOPHEN 5-325 MG TABLET PO PRN (11:08)
--- NOTE | 2018-02-02 14:46 | PDOC DISCHARGE SUMMARY ---
General - Admit/Disc Date/PCP Admission Date/Primary Care Provider: 01/23/18 08:34 KELLIE BASSETT Discharge Date: 02/02/18 - Discharge Diagnosis (1) Acute on chronic respiratory failure with hypoxemia Is this a current diagnosis for this admission?: Yes Summary: Secondary to MRSA pneumonia: Patient was placed on vancomycin patient will need to finish a total of 8/ days of treatment. (2) Pneumonia Is this a current diagnosis for this admission?: Yes Summary: Secondary to MRSA pneumonia: Patient is on vancomycin. (3) Atrial fibrillation Is this a current diagnosis for this admission?: Yes Summary: Patient was continued on diltiazem and digoxin was added. Patient's heart rate has been better controlled. (4) Sepsis Is this a current diagnosis for this admission?: Yes Summary: Contrary to MRSA pneumonia: Resolved (5) HTN (hypertension) Is this a current diagnosis for this admission?: Yes Summary: Continue current medications. (6) Hypotension Is this a current diagnosis for this admission?: Yes Summary: Resolved - Additional Information Resuscitation Status: Do Not Resuscitate Discharge Diet: Cardiac Discharge Activity: Activity As Tolerated Prescriptions: Hydrocodone/Acetaminophen [[place] 5-325 mg Tablet] 1 tab PO Q6HP PRN #5 tablet PRN Reason: Methylprednisolone [Medrol Dosepack (4 mg/Tab) 21 Tab/Dosepak] 4 mg PO ASDIR PRN #21 tab.ds.pk PRN Reason: Home Medications: Albuterol Sulfate [Albuterol Sulfate 2.5mg/3 mL] 1 vial IH RTQ4HP PRN 01/23/18 Aspirin [Aspirin 325 mg Tablet] 325 mg PO DAILY 01/23/18 Atorvastatin Calcium [Lipitor 80 mg Tablet] 80 mg PO QHS 01/23/18 Diltiazem HCl [Cardizem 30 mg Tablet] 30 mg PO Q8 01/23/18 Fluticasone/Salmeterol [Advair 250-50 Diskus 14 Dose/Diskus] 1 inh IH Q12 Gabapentin [Neurontin] 600 mg PO Q8 01/23/18 Ranitidine HCl [Zantac 150 mg Tablet] 150 mg PO BIDACBS 01/23/18 Tamsulosin HCl [Flomax 0.4 mg Cap.sr] 0.4 mg PO DAILY 01/23/18 Tiotropium [place] [Spiriva Handihaler 5 Cap/Kit (18 Mcg/Cap)] 1 cap IH DAILY Acetaminophen [Tylenol 325 mg Tablet] 650 mg PO Q4HP PRN tablet 02/02/18 Digoxin [Lanoxin 0.125 mg Tablet] 0.125 mg PO DAILY tablet 02/02/18 Diltiazem HCl [Cardizem 30 mg Tablet] 30 mg PO Q8 tablet 02/02/18 Fluticasone Propionate [Flonase Nasal [place] 50 Mcg/[place] 16 gm] 2 spray NASL QHS spray.pump 02/02/18 Heparin Sodium,Porcine [Heparin Flush 10 Unit/ml 5 ml Disp.syrg] 30 unit IV .AFTER EACH USE PRN disp.syrin 02/02/18 Heparin Sodium,Porcine [Heparin Flush 10 Unit/ml 5 ml Disp.syrg] 30 unit IV Q12 disp.syrin 02/02/18 Hydrocodone/Acetaminophen [[place] 5-325 mg Tablet] 1 tab PO Q6HP PRN #5 tablet Hydrocortisone Acetate [Anusol Hc 25 mg Supp.rect] 25 mg NV BIDP PRN supp.rect 02/02/18 Ipratropium [place] [Atrovent 0.02% Neb 0.5 mg/2.5 ml Ampul] 0.5 mg NEB RTQ4 vial.neb 02/02/18 Levalbuterol HCl [Xopenex Neb 0.63 mg/3 ml Ampul] 0.63 mg NEB RTQ4 vial.neb 06/15 Methylprednisolone [Medrol Dosepack (4 mg/Tab) 21 Tab/Dosepak] 4 mg PO ASDIR PRN #21 tab.ds.pk 02/02/18 History of Present Illness Patient complains of: Difficulty breathing and shortness of breath History of Present Illness: JEAN-PIERRE OLIVAREZ is a 82 year old male admitted to hospital with complaint of difficulty breathing and shortness of breath. Patient had been admitted approximately 1-2 weeks ago and was treated for community-acquired pneumonia. During this hospitalization patient was found to have MRSA pneumonia. Patient was placed on vancomycin and is currently requiring 21 days of treatment. Patient was noted to have tachycardia secondary to his A. fib and was placed on dig. Patient's heart rate has been under good control. Patient was also noted to have hypotension at time of admission however that has resolved. Hospital Course Hospital Course: JEAN-PIERRE OLIVAREZ is a 82 year old male admitted to hospital with complaint of difficulty breathing and shortness of breath. Patient had been admitted approximately 1-2 weeks ago and was treated for community-acquired pneumonia. During this hospitalization patient was found to have MRSA pneumonia. Patient was placed on vancomycin and is currently requiring 21 days of treatment. Patient was noted to have tachycardia secondary to his A. fib and was placed on dig. Patient's heart rate has been under good control. Patient was also noted to have hypotension at time of admission however that has resolved. Physical Exam Vital Signs: Temp Pulse Resp BP Pulse Ox 98.9 F 75 16 111/51 L 97 02/02/18 08:51 02/02/18 11:46 02/02/18 11:46 02/02/18 08:51 02/02/18 11:46 Intake & Output 02/01/18 02/02/18 02/03/18 06:59 06:59 06:59 Intake Total 1572 1834 Output Total 775 300 Balance 797 1534 Weight 75 kg 73 kg General appearance: PRESENT: no acute distress, thin, well-nourished Head exam: PRESENT: atraumatic, normocephalic Eye exam: PRESENT: conjunctiva pink, EOMI. ABSENT: scleral icterus Ear exam: PRESENT: normal external ear exam Mouth exam: PRESENT: moist, tongue midline Neck exam: ABSENT: carotid bruit, JVD, lymphadenopathy, thyromegaly Respiratory exam: PRESENT: other - Coarse breath sounds, no wheezing heard. ABSENT: rales, rhonchi Cardiovascular exam: PRESENT: irregular rhythm. ABSENT: diastolic murmur, rubs , systolic murmur Pulses: PRESENT: normal dorsalis pedis pul Vascular exam: PRESENT: normal capillary refill GI/Abdominal exam: PRESENT: normal bowel sounds, soft. ABSENT: distended, guarding, mass, organolmegaly, rebound, tenderness Rectal exam: PRESENT: deferred Extremities exam: PRESENT: full ROM. ABSENT: calf tenderness, clubbing, pedal edema Musculoskeletal exam: PRESENT: full ROM Neurological exam: PRESENT: alert, awake, oriented to person, oriented to place , oriented to time, oriented to situation, CN II-XII grossly intact. ABSENT: motor sensory deficit Psychiatric exam: PRESENT: appropriate affect, normal mood. ABSENT: homicidal ideation, suicidal ideation Skin exam: PRESENT: dry, intact, warm. ABSENT: cyanosis, rash Results Laboratory Results: 02/02/18 04:40 02/02/18 04:40 02/02/18 02/02/18 04:40 04:40 WBC 8.2 RBC 3.45 L Hgb 9.1 L Hct 28.1 L MCV 82 MCH 26.4 L MCHC 32.4 RDW 20.9 H Plt Count 359 Seg Neutrophils % 72.9 Lymphocytes % 17.9 Monocytes % 8.9 Eosinophils % 0.0 Basophils % 0.3 Absolute Neutrophils 6.0 Absolute Lymphocytes 1.5 Absolute Monocytes 0.7 Absolute Eosinophils 0.0 Absolute Basophils 0.0 Sodium 139.9 Potassium 4.6 Chloride 101 Carbon Dioxide 31 H Anion Gap 8 BUN 19 Creatinine 0.76 Est GFR ( Amer) > 60 Est GFR (Non-Af Amer) > 60 Glucose 100 Calcium 9.2 Magnesium 2.1 Total Bilirubin 0.1 L AST 17 ALT 29 Alkaline Phosphatase 84 Total Protein 5.4 L Albumin 2.9 L Impressions: Chest X-Ray 01/23/18 05:00 IMPRESSION: 1. Interval increase of patchy left basilar airspace opacity. Persistent right basilar airspace opacity. These findings are concerning for bibasilar pneumonia. Findings could be related to aspiration. Guidance Fluoroscopy 02/01/18 00:00 IMPRESSION: SUCCESSFUL PLACEMENT OF A 5 FR DUAL LUMEN 33 CM PICC IN THE RIGHT BASILIC VEIN. Interventional Vascular Procedure 02/01/18 00:00 IMPRESSION: Please see combined report for performance of procedure and radiologic supervision and interpretation. PICC Line Insertion 02/01/18 00:00 IMPRESSION: SUCCESSFUL PLACEMENT OF A 5 FR DUAL LUMEN 33 CM PICC IN THE RIGHT BASILIC VEIN. Qualifiers - * PATEINT BEING DISCHARGED WITH ANY OF THE FOLLOWING DIAGNOSIS?: No Plan Time Spent: Greater than 30 Minutes
[2018-02-02] MEDS: PREDNISONE 20 MG TABLET PO SCH (17:00)
[2018-02-02] MEDS: LORAZEPAM INJ 2 MG/1 ML VIAL IV PRN (17:06)
[2018-02-02 19:18] VITALS: BP 112/73
== END 2018-02-02 18:45 | DRG 871 ==
LOC: ER 04:57 → EH 08:34 → 3W 16:21
PROVIDERS: ADMIT Emergency Medicine; ATTEND Emergency Medicine
PROC: 5A09457 Assistance with Respiratory Ventilation, 24-96 Consecutive Hours, Continuous Positive Airway Pressure (ICD-10-PCS; 2018-01-23)
PROC: 3E0F73Z Introduction of Anti-inflammatory into Respiratory Tract, Via Natural or Artificial Opening (ICD-10-PCS; 2018-01-23)
PROC: 02HV33Z Insertion of Infusion Device into Superior Vena Cava, Percutaneous Approach (ICD-10-PCS; principal; 2018-02-01)
PROC: B5181ZA Fluoroscopy of Superior Vena Cava using Low Osmolar Contrast, Guidance (ICD-10-PCS; 2018-02-01)
PROC: B548ZZA Ultrasonography of Superior Vena Cava, Guidance (ICD-10-PCS; 2018-02-01)
DX: A41.9 Sepsis, unspecified organism (principal); J96.21 Acute and chronic respiratory failure with hypoxia; J15.212 Pneumonia due to Methicillin resistant Staphylococcus aureus; J69.0 Pneumonitis due to inhalation of food and vomit; J44.0 Chronic obstructive pulmonary disease with (acute) lower respiratory infection; J44.1 Chronic obstructive pulmonary disease with (acute) exacerbation; Z66 Do not resuscitate; K59.03 Drug induced constipation; I48.91 Unspecified atrial fibrillation; I10 Essential (primary) hypertension; M19.90 Unspecified osteoarthritis, unspecified site; I25.10 Atherosclerotic heart disease of native coronary artery without angina pectoris; F03.90 Unspecified dementia, unspecified severity, without behavioral disturbance, psychotic disturbance, mood disturbance, and anxiety; E78.00 Pure hypercholesterolemia, unspecified; K21.9 Gastro-esophageal reflux disease without esophagitis; I48.2 Chronic atrial fibrillation; F41.9 Anxiety disorder, unspecified; I25.2 Old myocardial infarction; Z99.81 Dependence on supplemental oxygen; Z88.3 Allergy status to other anti-infective agents; Z79.82 Long term (current) use of aspirin; Z79.899 Other long term (current) drug therapy; Z85.828 Personal history of other malignant neoplasm of skin; Z95.1 Presence of aortocoronary bypass graft; Z95.0 Presence of cardiac pacemaker; Z83.6 Family history of other diseases of the respiratory system; Z80.8 Family history of malignant neoplasm of other organs or systems
CPT/HCPCS: 36415; 36569; 71045; 76937; 77001; 80048; 80053; 80162; 80202; 82565; 82803; 83605; 83735; 85025; 85027; 87040; 87070; 87077; 87186; 87205; 87804; 93005; 93010; 94660; 96361; 96374; 96375; 99291; G8996-GN; G8997-GN; G8998-GN; J0692; J1160; J1642; J1650; J2060; J2543; J3370; J3490; J7030; J7060; J7512; J7614; J7620

== ENCOUNTER → 2018-02-17 | Outpatient (CLI) | payer MEDICARE, BC ==
[2018-02-17 13:12] LABS: ANION GAP 6 (5-19); BLOOD UREA NITROGEN 14 mg/dL (7-20); CALCIUM 8.8 mg/dL (8.4-10.2); CARBON DIOXIDE 34 mmol/L (22-30); CHLORIDE 100 mmol/L (98-107); GLUCOSE 128 mg/dL (75-110); POTASSIUM 3.9 mmol/L (3.6-5.0); SODIUM 140.4 mmol/L (137-145)
== END ==
LOC: OD 12:03
PROVIDERS: ATTEND Family Medicine
DX: J96.21 Acute and chronic respiratory failure with hypoxia (principal); I48.91 Unspecified atrial fibrillation; I95.9 Hypotension, unspecified; I10 Essential (primary) hypertension
CPT/HCPCS: 36415; 80048

== ENCOUNTER 2018-03-03 06:19 | Inpatient (IN) | payer MEDICARE, BC ==
[2018-03-03] MEDS ORDERED: ASPIRIN 81 MG TABLET, CHEWABLE PO ONE (06:42)
[2018-03-03 06:49] LABS: ABSOLUTE BASOPHILS # (AUTO) 0.1 10^3/uL (0.0-0.2); ABSOLUTE EOSINOPHILS # (AUTO) 0.6 10^3/uL (0.0-0.6); ABSOLUTE LYMPHOCYTES (AUTO) 2.1 10^3/uL (0.5-4.7); ABSOLUTE MONOCYTES (AUTO) 1.4 10^3/uL (0.1-1.4); ABSOLUTE NEUT (AUTO) 5.3 10^3/uL (1.7-8.2); BASOPHILS % (AUTO) 1.2 % (0-2); EOSINOPHILS % (AUTO) 6.4 % (0-6); HEMATOCRIT 32.6 % (37.9-51.0); HEMOGLOBIN 10.8 g/dL (13.5-17.0); LYMPHOCYTES % (AUTO) 21.8 % (13-45); MEAN CORPUSCULAR HEMOGLOBIN 26.3 pg (27.0-33.4); MEAN CORPUSCULAR VOLUME 80 fl (80-97); MONOCYTES % (AUTO) 14.5 % (3-13); PLATELET COUNT 570 10^3/uL (150-450); RED CELL DISTRIBUTION WIDTH 20.3 % (11.5-14.0); SEGMENTED NEUTROPHILS % (AUTO) 56.1 % (42-78); TOTAL CELLS COUNTED % (AUTO) 100 %; WHITE BLOOD COUNT 9.5 10^3/uL (4.0-10.5)
[2018-03-03] MEDS ORDERED: IPRATROPIUM/ALBUTEROL 0.5-2.5 MG/3 ML AMPUL NEB ONE (06:52)
[2018-03-03 07:03] LABS: INTERNATIONAL RATION (INR) 0.96; PROTHROMBIN TIME 13.5 SEC (11.4-15.4)
--- NOTE | 2018-03-03 07:03 | ER Document Report ---
ED Respiratory Problem - General Chief Complaint: Shortness Of Breath Stated Complaint: SHORT OF BREATH Time Seen by Provider: 03/03/18 06:36 Notes: 82-year-old male history of COPD MRSA pneumonia presents to the ER with shortness of breath and cough. The patient is at the group home and they noticed that he was having increasing cough and difficulty breathing last night. The sent the patient to the ER. The patient is being treated for MRSA pneumonia. The spouse states the patient has been very swollen. He states he is not having fever or chills at this time he had a cough occasionally white/ clear sputum. Denies hemoptysis. Complains of lower extremity swelling. Planes of shortness of breath. Denies chest pain. TRAVEL OUTSIDE OF THE [place] IN LAST 30 DAYS: No - Related Data Allergies/Adverse Reactions: tobramycin Adverse Reaction (Unknown, Verified 03/03/18 06:55) Past Medical History - Social History Smoking Status: Former Smoker Chew tobacco use (# tins/day): No Frequency of alcohol use: None Drug Abuse: None Family History: COPD, Malignancy - Brain tumor Patient has suicidal ideation: No Patient has homicidal ideation: No - Past Medical History Cardiac Medical History: Reports: Hx Atrial Fibrillation - Aspirin only due to epistaxis with systemic anticoagulation., Hx Coronary Artery Disease, Hx Heart Attack - 08/2009, Hx Hypercholesterolemia, Hx Hypertension Denies: Hx DVT, Hx Pulmonary Embolism Pulmonary Medical History: Reports: Hx COPD, Hx Pneumonia Denies: Hx Asthma, Hx Sleep Apnea Neurological Medical History: Denies: Hx Cerebrovascular Accident, Hx Seizures Endocrine Medical History: Denies: Hx Diabetes Mellitus Type 1, Hx Diabetes Mellitus Type 2, Hx Hyperthyroidism, Hx Hypothyroidism Renal/ Medical History: Denies: Hx Peritoneal Dialysis Malignancy Medical History: Reports Hx Skin Cancer GI Medical History: Reports: Hx Gastroesophageal Reflux Disease. Denies: Hx Cirrhosis, Hx Hepatitis, Hx Hiatal Hernia, Hx Ulcer Musculoskeltal Medical History: Reports Hx Arthritis, Reports Hx Musculoskeletal Trauma Psychiatric Medical History: Reports: Hx Dementia Denies: Hx Depression Infectious Medical History: Reports: Hx MRSA. Denies: Hx C-Diff, Hx Hepatitis Past Surgical History: Reports: Hx Appendectomy, Hx Coronary Artery Bypass Graft , Hx Open Heart Surgery, Hx Orthopedic Surgery - back surgery, Hx Pacemaker - Immunizations Immunizations up to date: Yes Hx Diphtheria, Pertussis, Tetanus Vaccination: Yes Review of Systems - Review of Systems EENT: No symptoms reported Cardiovascular: Edema. denies: Chest pain, Palpitations, Heart racing Respiratory: Cough, Short of breath, Sputum, Wheezing Gastrointestinal: No symptoms reported Genitourinary: No symptoms reported Male Genitourinary: No symptoms reported Musculoskeletal: No symptoms reported Skin: No symptoms reported Hematologic/Lymphatic: No symptoms reported Neurological/Psychological: No symptoms reported -: Yes All other systems reviewed and negative Physical Exam - Vital signs Vitals: Pulse Ox 100 03/03/18 06:23 - Notes Notes: GENERAL_APPEARANCE: well_nourished, alert, cooperative VITALS: reviewed, see vital signs table. HEAD: no_swelling\tenderness on the head. EYES: PERRL, EOMI, conjunctiva_clear. NOSE: no_nasal_discharge. MOUTH: (-)decreased moisture. THROAT: no_tonsilar_inflammation, no_airway_obstruction. no_lymphadenopathy NECK: supple, no_neck_tenderness, (-)thyromegaly. BACK: no_back_tenderness. CHEST_WALL: no_chest_tenderness. LUNGS: Scattered_wheezing, basilar crackles, no_rhonchi, (-)accessory muscle use, failure air exchange bilateral. HEART: normal_rate, normal_rhythm, normal_S1, normal_S2, (-)S3, (-)S4, no_ murmur, no_rub. ABDOMEN: soft, no_abd_tenderness, (-)guarding, (-)rebound, no_organomegaly, no_ abd_masses. EXTREMITIES: good pulses in all_extremities, no_swelling\tenderness in the extremities, 3+ pedal_edema. SKIN: warm, dry, good_color, no_rash. MENTAL_STATUS: speech_clear, oriented_X_3, normal_affect, responds_ appropriately to questions. Course - Re-evaluation Re-evalutation: 03/03/18 07:02 82-year-old male presents to the ER with shortness of breath. Patient has some lower extremity edema. He has some crackles in the bases. He is also wheezing. We will give him an aerosol treatment. Certainly this may be COPD exacerbation versus CHF. Patient also is being treated with MRSA pneumonia. 03/03/18 07:23 Laboratory 03/03/18 03/03/18 03/03/18 06:25 06:25 06:25 WBC 9.5 RBC 4.10 L Hgb 10.8 L Hct 32.6 L MCV 80 MCH 26.3 L MCHC 33.0 RDW 20.3 H Plt Count 570 H Seg Neutrophils % 56.1 Lymphocytes % 21.8 Monocytes % 14.5 H Eosinophils % 6.4 H Basophils % 1.2 Absolute Neutrophils 5.3 Absolute Lymphocytes 2.1 Absolute Monocytes 1.4 Absolute Eosinophils 0.6 Absolute Basophils 0.1 PT 13.5 INR 0.96 Sodium 147.1 H Potassium 3.8 Chloride 103 Carbon Dioxide 38 H Anion Gap 6 BUN 18 Creatinine 1.05 Est GFR ( Amer) > 60 Est GFR (Non-Af Amer) > 60 Glucose 105 Calcium 9.5 Total Bilirubin 0.4 Direct Bilirubin 0.4 Neonat Total Bilirubin Not Reportable Neonat Direct Bilirubin Not Reportable Neonat Indirect Bili Not Reportable AST 24 ALT 22 Alkaline Phosphatase 104 Creatine Kinase 24 L CK-MB (CK-2) Troponin I NT-Pro-B Natriuret Pep Total Protein 7.5 Albumin 3.7 03/03/18 06:25 WBC RBC Hgb Hct MCV MCH MCHC RDW Plt Count Seg Neutrophils % Lymphocytes % Monocytes % Eosinophils % Basophils % Absolute Neutrophils Absolute Lymphocytes Absolute Monocytes Absolute Eosinophils Absolute Basophils PT INR Sodium Potassium Chloride Carbon Dioxide Anion Gap BUN Creatinine Est GFR ( Amer) Est GFR (Non-Af Amer) Glucose Calcium Total Bilirubin Direct Bilirubin Neonat Total Bilirubin Neonat Direct Bilirubin Neonat Indirect Bili AST ALT Alkaline Phosphatase Creatine Kinase CK-MB (CK-2) 0.60 Troponin I 0.021 NT-Pro-B Natriuret Pep 2210 H Total Protein Albumin 03/03/18 07:25 Chest X-Ray 03/03/18 06:42 IMPRESSION: 1. Persistent bibasilar airspace opacities with development of right pleural effusion. 03/03/18 09:05 Patient received aerosol treatments and steroids. He has no leukocytosis no fever. Chest x-ray shows some opacities which is very similar to his old and a right effusion. Chest x-ray outpatient yesterday showed a left-sided pneumonia however not really appreciating that clearly here. The patient also is edematous. The family states he was getting vancomycin IV at the group home and instead of the small bags due to the IV fluid shortage the ended up putting it in very large IV bags and the patient swelled up and they have been giving him Lasix to try to get the swelling down. The chest x-ray does show an effusion. This may be either fluid buildup due to the excess IV fluids or recurrence of the MRSA pneumonia. We will give a dose of vancomycin here and speak with the hospitalist service for admission. Patient still feels short of breath. 03/03/18 09:22 Spoke with the hospitalist service Dr West The patient was given again a dose of Lasix here for improved diuresis due to the increased fluid intake. Patient is stable at this time - Vital Signs Vital signs: Temp Pulse Resp BP Pulse Ox 97.9 F 96 18 107/68 97 03/03/18 06:48 03/03/18 06:48 03/03/18 07:31 03/03/18 07:01 03/03/18 07:01 - Laboratory Result Diagrams: 03/03/18 06:25 03/03/18 06:25 Laboratory results interpreted by me: 03/03/18 03/03/18 03/03/18 06:25 06:25 06:25 RBC 4.10 L Hgb 10.8 L Hct 32.6 L MCH 26.3 L RDW 20.3 H Plt Count 570 H Monocytes % 14.5 H Eosinophils % 6.4 H Sodium 147.1 H Carbon Dioxide 38 H Creatine Kinase 24 L NT-Pro-B Natriuret Pep 2210 H Discharge - Discharge Clinical Impression: COPD with acute exacerbation MRSA pneumonia Qualifiers: Laterality: bilateral Lung location: unspecified part of lung Qualified Code(s) : J15.212 - Pneumonia due to Methicillin resistant Staphylococcus aureus Condition: Fair Disposition: ADMITTED INPATIENT Admitting Provider: Hospitalist Referrals: KELLIE BASSETT MD [Primary Care Provider] - Follow up as needed
[2018-03-03 07:11] LABS: ALANINE AMINOTRANSFERASE 22 U/L (21-72); ALBUMIN 3.7 g/dL (3.5-5.0); ALKALINE PHOSPHATASE 104 U/L (38-126); ANION GAP 6 (5-19); ASPARTATE AMINO TRANSFERASE 24 U/L (17-59); BILIRUBIN,DIRECT 0.4 mg/dL (0.0-0.4); BILIRUBIN,TOTAL 0.4 mg/dL (0.2-1.3); BLOOD UREA NITROGEN 18 mg/dL (7-20); CALCIUM 9.5 mg/dL (8.4-10.2); CARBON DIOXIDE 38 mmol/L (22-30); CHLORIDE 103 mmol/L (98-107); CREATINE KINASE 24 U/L (55-170); GLUCOSE 105 mg/dL (75-110); POTASSIUM 3.8 mmol/L (3.6-5.0); SODIUM 147.1 mmol/L (137-145); TOTAL PROTEIN 7.5 g/dL (6.3-8.2)
--- NOTE | 2018-03-03 07:12 | RADIOLOGY REPORT (SQ) ---
EXAM DESCRIPTION: CHEST SINGLE VIEW CLINICAL HISTORY: SOB COMPARISON: 01/23/2018 FINDINGS: Single frontal view of the chest. Left-sided multilead pacemaker. Atherosclerotic calcification tortuosity of thoracic aorta. Heart is not enlarged. Right pleural effusion and bibasilar opacities, more confluent on the right than the left. No pneumothorax definitely identified. No acute osseous abnormality. Upper abdominal soft tissues are unremarkable. IMPRESSION: 1. Persistent bibasilar airspace opacities with development of right pleural effusion.
[2018-03-03 07:13] LABS: CREATINE KINASE MB 0.6 ng/mL (<4.55); TROPONIN I 0.021 ng/mL
[2018-03-03] MEDS ORDERED: METHYLPREDNISOLONE INJ 40 MG/1 ML SDV IV ONE (09:03)
[2018-03-03] MEDS ORDERED: FUROSEMIDE INJ/PF 20 MG/2 ML SDV IV ONE (09:03)
[2018-03-03] MEDS ORDERED: VANCOMYCIN HCL INJ 1000 MG VIAL IV ONE (09:07)
--- NOTE | 2018-03-03 09:13 | EKG REPORT ---
SEVERITY:- ABNORMAL ECG - VENTRICULAR-PACED COMPLEXES LEFT AXIS DEVIATION : Confirmed by: Martha Mccall 03-Mar-2018 09:12:28
[2018-03-03] MEDS ORDERED: ACETAMINOPHEN 325 MG TABLET PO PRN (11:21)
[2018-03-03] MEDS ORDERED: ONDANSETRON HCL INJ/PF 4 MG/2 ML SDV IV PRN (11:21)
[2018-03-03] MEDS ORDERED: TEMAZEPAM 7.5 MG CAPSULE PO PRN (11:21)
[2018-03-03] MEDS ORDERED: MAGNESIUM HYDROXIDE SUSP 30 ML UDCUP PO PRN (11:21)
[2018-03-03] MEDS ORDERED: IPRATROPIUM/ALBUTEROL 0.5-2.5 MG/3 ML AMPUL NEB PRN (11:29)
[2018-03-03 11:42] LABS: APPEARANCE,URINE CLEAR; BILIRUBIN,URINE NEGATIVE (NEGATIVE); COLOR,URINE STRAW; GLUCOSE, URINE NEGATIVE (NEGATIVE); KETONES,URINE NEGATIVE (NEGATIVE); LEUKOCYTE ESTERASE,URINE NEGATIVE (NEGATIVE); NITRITE,URINE NEGATIVE (NEGATIVE); PROTEIN,URINE 30 mg/dL (NEGATIVE); URINE SPECIFIC GRAVITY 1.009; UROBILINOGEN,URINE NEGATIVE mg/dL (<2.0)
[2018-03-03] MEDS: CLINDAMYCIN HCL 150 MG CAPSULE PO SCH ×3 (13:21→23:06)
[2018-03-03] MEDS: METHYLPREDNISOLONE INJ 40 MG/1 ML SDV IV SCH ×3 (13:22→23:06)
[2018-03-03] MEDS: IPRATROPIUM/ALBUTEROL 0.5-2.5 MG/3 ML AMPUL NEB SCH ×2 (14:17→20:51)
--- NOTE | 2018-03-03 14:38 | PDOC PROGRESS REPORT ---
Subjective Progress Note for:: 03/03/18 Subjective:: Patient presents to the emergency room with complaints of difficulty breathing and shortness of breath. This patient is well-known to this service. In fact he has been admitted about 3 times within the last couple of months for COPD as well as pneumonia and respiratory failure. He was [facility] and he says he had been there for 21 days precisely was actually supposed to be discharged home today but then he started having difficulty breathing. This started last night. There is no associated fever or chills and he has a cough with a whitish sputum. X-ray today shows right-sided pleural effusion which is somewhat new compared to his previous x- rays of the last few months. He remains afebrile and hypoxemic. He was subsequently found to be bronchospastic with wheezing in the ED so is being treated for possible COPD exacerbation. Reason For Visit: COPD EXACERBATION, RESPIRATORY FAILURE Physical Exam Vital Signs: Temp Pulse Resp BP Pulse Ox 97.9 F 123 H 15 104/65 96 03/03/18 06:48 03/03/18 14:17 03/03/18 14:17 03/03/18 13:01 03/03/18 14:17 General appearance: PRESENT: no acute distress Head exam: PRESENT: atraumatic Eye exam: PRESENT: conjunctiva pink, EOMI, PERRLA. ABSENT: scleral icterus Mouth exam: PRESENT: moist, tongue midline Cardiovascular exam: PRESENT: irregular rhythm, tachycardia GI/Abdominal exam: PRESENT: normal bowel sounds, soft. ABSENT: distended, guarding, mass, organolmegaly, rebound, tenderness Rectal exam: PRESENT: deferred Extremities exam: PRESENT: full ROM. ABSENT: calf tenderness, clubbing, pedal edema Neurological exam: PRESENT: alert, awake, oriented to person, oriented to place , oriented to time Psychiatric exam: PRESENT: appropriate affect, normal mood. ABSENT: homicidal ideation, suicidal ideation Results Laboratory Results: Laboratory 03/03/18 03/03/18 03/03/18 06:25 06:25 06:25 WBC 9.5 RBC 4.10 L Hgb 10.8 L Hct 32.6 L MCV 80 MCH 26.3 L MCHC 33.0 RDW 20.3 H Plt Count 570 H Seg Neutrophils % 56.1 Lymphocytes % 21.8 Monocytes % 14.5 H Eosinophils % 6.4 H Basophils % 1.2 Absolute Neutrophils 5.3 Absolute Lymphocytes 2.1 Absolute Monocytes 1.4 Absolute Eosinophils 0.6 Absolute Basophils 0.1 PT 13.5 INR 0.96 Sodium 147.1 H Potassium 3.8 Chloride 103 Carbon Dioxide 38 H Anion Gap 6 BUN 18 Creatinine 1.05 Est GFR ( Amer) > 60 Est GFR (Non-Af Amer) > 60 Glucose 105 Calcium 9.5 Total Bilirubin 0.4 Direct Bilirubin 0.4 Neonat Total Bilirubin Not Reportable Neonat Direct Bilirubin Not Reportable Neonat Indirect Bili Not Reportable AST 24 ALT 22 Alkaline Phosphatase 104 Creatine Kinase 24 L CK-MB (CK-2) Troponin I NT-Pro-B Natriuret Pep Total Protein 7.5 Albumin 3.7 Urine Color Urine Appearance Urine pH Ur Specific [place] Urine Protein Urine Glucose (UA) Urine Ketones Urine Blood Urine Nitrite Urine Bilirubin Urine Urobilinogen Ur Leukocyte Esterase Urine WBC (Auto) Urine RBC (Auto) Urine Bacteria (Auto) Urine Mucus (Auto) Urine Ascorbic Acid Digoxin 03/03/18 03/03/18 03/03/18 06:25 06:25 11:03 WBC RBC Hgb Hct MCV MCH MCHC RDW Plt Count Seg Neutrophils % Lymphocytes % Monocytes % Eosinophils % Basophils % Absolute Neutrophils Absolute Lymphocytes Absolute Monocytes Absolute Eosinophils Absolute Basophils PT INR Sodium Potassium Chloride Carbon Dioxide Anion Gap BUN Creatinine Est GFR ( Amer) Est GFR (Non-Af Amer) Glucose Calcium Total Bilirubin Direct Bilirubin Neonat Total Bilirubin Neonat Direct Bilirubin Neonat Indirect Bili AST ALT Alkaline Phosphatase Creatine Kinase CK-MB (CK-2) 0.60 Troponin I 0.021 0.021 NT-Pro-B Natriuret Pep 2210 H Total Protein Albumin Urine Color Urine Appearance Urine pH Ur Specific [place] Urine Protein Urine Glucose (UA) Urine Ketones Urine Blood Urine Nitrite Urine Bilirubin Urine Urobilinogen Ur Leukocyte Esterase Urine WBC (Auto) Urine RBC (Auto) Urine Bacteria (Auto) Urine Mucus (Auto) Urine Ascorbic Acid Digoxin 0.95 03/03/18 11:03 WBC RBC Hgb Hct MCV MCH MCHC RDW Plt Count Seg Neutrophils % Lymphocytes % Monocytes % Eosinophils % Basophils % Absolute Neutrophils Absolute Lymphocytes Absolute Monocytes Absolute Eosinophils Absolute Basophils PT INR Sodium Potassium Chloride Carbon Dioxide Anion Gap BUN Creatinine Est GFR ( Amer) Est GFR (Non-Af Amer) Glucose Calcium Total Bilirubin Direct Bilirubin Neonat Total Bilirubin Neonat Direct Bilirubin Neonat Indirect Bili AST ALT Alkaline Phosphatase Creatine Kinase CK-MB (CK-2) Troponin I NT-Pro-B Natriuret Pep Total Protein Albumin Urine Color STRAW Urine Appearance CLEAR Urine pH 7.0 Ur Specific [place] 1.009 Urine Protein 30 H Urine Glucose (UA) NEGATIVE Urine Ketones NEGATIVE Urine Blood MODERATE H Urine Nitrite NEGATIVE Urine Bilirubin NEGATIVE Urine Urobilinogen NEGATIVE Ur Leukocyte Esterase NEGATIVE Urine WBC (Auto) 0 Urine RBC (Auto) 33 Urine Bacteria (Auto) TRACE Urine Mucus (Auto) RARE Urine Ascorbic Acid NEGATIVE Digoxin Impressions: Chest X-Ray 03/03/18 06:42 IMPRESSION: 1. Persistent bibasilar airspace opacities with development of right pleural effusion. Assessment & Plan - Diagnosis (1) Acute on chronic respiratory failure with hypoxemia Is this a current diagnosis for this admission?: Yes Plan: This is likely multifactorial including right pleural effusion, possible diastolic dysfunction and sequela from recent pneumonia superimposed on COPD with exacerbation. He did have an echocardiogram done in September 2017 showed a grossly intact left ventricular systolic function with a grade 1 diastolic dysfunction. His BNP is elevated and so he would benefit from some Lasix. With a pleural effusion I think it is reasonable to try and obtain a therapeutic thoracentesis and send the fluid for analysis (2) COPD with acute exacerbation Is this a current diagnosis for this admission?: Yes Plan: We will continue with bronchodilators as well as steroids (3) MRSA pneumonia Qualifiers: Laterality: bilateral Lung location: unspecified part of lung Qualified Code(s): J15.212 - Pneumonia due to Methicillin resistant Staphylococcus aureus Is this a current diagnosis for this admission?: No Plan: This is a recent diagnosis however patient has completed his antibiotics. Will obtain repeat sputum cultures. I will place him on empiric clindamycin orally. I doubt that his symptoms at this time I really secondary to an infectious process (4) Anxiety Is this a current diagnosis for this admission?: Yes Plan: Continue with benzodiazepines (5) Atrial fibrillation Qualifiers: Atrial fibrillation type: chronic Is this a current diagnosis for this admission?: Yes Plan: Patient has history of chronic atrial fibrillation. He is on no anticoagulant likely because of his propensity for falls. We will continue rate control although his A. fib normally gets poorly controlled with his infection (6) Pleural effusion Is this a current diagnosis for this admission?: Yes Plan: Right-sided with precise etiology unknown. Patient was recently treated for pneumonia and so this could be a parapneumonic effusion. He also has diastolic dysfunction. With his acute onset of respiratory failure I will order a thoracentesis and hopefully get some fluid for analysis. Patient will be placed on Lasix as well as empiric antibiotics and will continue with oxygen support. - Plan Summary Plan Summary: I discussed CODE STATUS with the patient and he clarifies that he is a DO NOT RESUSCITATE
--- NOTE | 2018-03-03 16:35 | PDOC H&P ---
History of Present Illness Admission Date/PCP: 03/03/18 12:19 KELLIE BASSETT Patient complains of: difficulty breathing History of Present Illness: JEAN-PIERRE OLIVAREZ is a 82 year old male Patient presents to the emergency room with complaints of difficulty breathing and shortness of breath. This patient is well-known to this service. In fact he has been admitted about 3 times within the last couple of months for COPD as well as pneumonia and respiratory failure. [facility] and he says he had been there for 21 days precisely was actually supposed to be discharged home today but then he started having difficulty breathing. This started last night. There is no associated fever or chills and he has a cough with a whitish sputum. X-ray today shows right-sided pleural effusion which is somewhat new compared to his previous x- rays of the last few months. He remains afebrile and hypoxemic. He was subsequently found to be bronchospastic with wheezing in the ED so is being treated for possible COPD exacerbation. Past Medical History Cardiac Medical History: Reports: Atrial Fibrillation - Aspirin only due to epistaxis with systemic anticoagulation., Coronary Artery Disease, Myocardial Infarction - 08/2009, Hyperlipidema, Hypertension Denies: DVT, Pulmonary Embolism Pulmonary Medical History: Reports: Chronic Obstructive Pulmonary Disease (COPD) , Pneumonia Denies: Asthma, Sleep Apnea Neurological Medical History: Denies: Seizures Endocrine Medical History: Denies: Diabetes Mellitus Type 1, Diabetes Mellitus Type 2, Hyperthyroidism, Hypothyroidism Malignancy Medical History: Reports: Skin Cancer GI Medical History: Reports: Gastroesophageal Reflux Disease Denies: Cirrhosis, Hepatitis, Hiatal Hernia Musculoskeltal Medical History: Reports: Arthritis Psychiatric Medical History: Reports: Dementia Denies: Depression Hematology: Denies: Anemia, Sickle Cell Disease Infectious Medical History: Reports: Methicillin-Resistant Staph Aureus Denies: Clostridium Difficile Past Surgical History Past Surgical History: Reports: Appendectomy, Coronary Artery Bypass Graft, Orthopedic Surgery - back surgery, Pacemaker Social History Smoking Status: Former Smoker Frequency of Alcohol Use: None Hx Recreational Drug Use: No Drugs: None Hx Prescription Drug Abuse: No Family History Family History: COPD, Malignancy - Brain tumor Parental Family History Reviewed: Yes Children Family History Reviewed: Yes Sibling(s) Family History Reviewed.: Yes Medication/Allergy Home Medications: RX: Albuterol Sulfate [Albuterol Sulfate 2.5mg/3 mL] 1 vial IH RTQ4HP PRN RX: Aspirin [Aspirin 325 mg Tablet] 325 mg PO DAILY 01/23/18 RX: Atorvastatin Calcium [Lipitor 80 mg Tablet] 80 mg PO QHS 01/23/18 RX: Fluticasone/Salmeterol [Advair 250-50 Diskus 14 Dose/Diskus] 1 inh IH Q12 RX: Gabapentin [Neurontin] 600 mg PO Q8 01/23/18 RX: Ranitidine HCl [Zantac 150 mg Tablet] 150 mg PO BIDACBS 01/23/18 RX: Tamsulosin HCl [Flomax 0.4 mg Cap.sr] 0.4 mg PO DAILY 01/23/18 RX: Tiotropium Roscoe [Spiriva Handihaler 5 Cap/Kit (18 Mcg/Cap)] 1 cap IH DAILY 01/23/18 RX: Acetaminophen [Tylenol 325 mg Tablet] 650 mg PO Q4HP PRN tablet 02/02/18 RX: Digoxin [Lanoxin 0.125 mg Tablet] 0.125 mg PO DAILY tablet 02/02/18 RX: Diltiazem HCl [Cardizem 30 mg Tablet] 30 mg PO Q8 tablet 02/02/18 RX: Fluticasone Propionate [Flonase Nasal Nimitz 50 Mcg/Nimitz 16 gm] 2 spray NASL QHS spray.pump 02/02/18 RX: Hydrocodone/Acetaminophen [Onida 5-325 mg Tablet] 1 tab PO Q6HP PRN #5 tablet 02/02/18 RX: Hydrocortisone Acetate [Anusol Hc 25 mg Supp.rect] 25 mg VT BIDP PRN supp.rect 02/02/18 RX: Levalbuterol HCl [Xopenex Neb 0.63 mg/3 ml Ampul] 0.63 mg NEB RTQ4 vial.neb 02/02/18 Furosemide [Lasix 40 mg Tablet] 40 mg PO QAM 03/03/18 Ipratropium/Albuterol Sulfate [Duoneb 3 ml Ampul] 3 ml NEB RTQ6 03/03/18 Allergies/Adverse Reactions: tobramycin Adverse Reaction (Unknown, Verified 03/03/18 06:55) Review of Systems All systems: reviewed and no additional remarkable complaints except as stated Physical Exam Vital Signs: Temp Pulse Resp BP Pulse Ox 97.9 F 123 H 15 104/65 96 03/03/18 06:48 03/03/18 14:17 03/03/18 14:17 03/03/18 13:01 03/03/18 14:17 General appearance: PRESENT: no acute distress, thin Head exam: PRESENT: atraumatic, normocephalic Eye exam: PRESENT: conjunctiva pink, EOMI, PERRLA. ABSENT: scleral icterus Ear exam: PRESENT: normal external ear exam Mouth exam: PRESENT: moist, tongue midline Respiratory exam: PRESENT: clear to auscultation alicia. ABSENT: rales, rhonchi, wheezes Cardiovascular exam: PRESENT: irregular rhythm, +S1, +S2, tachycardia. ABSENT: systolic murmur Pulses: PRESENT: normal dorsalis pedis pul Vascular exam: PRESENT: normal capillary refill GI/Abdominal exam: PRESENT: normal bowel sounds, soft. ABSENT: distended, guarding, mass, organolmegaly, rebound, tenderness Rectal exam: PRESENT: deferred Extremities exam: PRESENT: full ROM. ABSENT: calf tenderness, clubbing, pedal edema Neurological exam: PRESENT: alert, awake, oriented to person, oriented to place , oriented to time, oriented to situation Psychiatric exam: PRESENT: appropriate affect, normal mood. ABSENT: homicidal ideation, suicidal ideation Skin exam: PRESENT: erythema, rash Results Laboratory Results: Laboratory 03/03/18 03/03/18 03/03/18 06:25 06:25 06:25 WBC 9.5 RBC 4.10 L Hgb 10.8 L Hct 32.6 L MCV 80 MCH 26.3 L MCHC 33.0 RDW 20.3 H Plt Count 570 H Seg Neutrophils % 56.1 Lymphocytes % 21.8 Monocytes % 14.5 H Eosinophils % 6.4 H Basophils % 1.2 Absolute Neutrophils 5.3 Absolute Lymphocytes 2.1 Absolute Monocytes 1.4 Absolute Eosinophils 0.6 Absolute Basophils 0.1 PT 13.5 INR 0.96 Sodium 147.1 H Potassium 3.8 Chloride 103 Carbon Dioxide 38 H Anion Gap 6 BUN 18 Creatinine 1.05 Est GFR ( Amer) > 60 Est GFR (Non-Af Amer) > 60 Glucose 105 Calcium 9.5 Total Bilirubin 0.4 Direct Bilirubin 0.4 Neonat Total Bilirubin Not Reportable Neonat Direct Bilirubin Not Reportable Neonat Indirect Bili Not Reportable AST 24 ALT 22 Alkaline Phosphatase 104 Creatine Kinase 24 L CK-MB (CK-2) Troponin I NT-Pro-B Natriuret Pep Total Protein 7.5 Albumin 3.7 Urine Color Urine Appearance Urine pH Ur Specific [place] Urine Protein Urine Glucose (UA) Urine Ketones Urine Blood Urine Nitrite Urine Bilirubin Urine Urobilinogen Ur Leukocyte Esterase Urine WBC (Auto) Urine RBC (Auto) Urine Bacteria (Auto) Urine Mucus (Auto) Urine Ascorbic Acid Digoxin 03/03/18 03/03/18 03/03/18 06:25 06:25 11:03 WBC RBC Hgb Hct MCV MCH MCHC RDW Plt Count Seg Neutrophils % Lymphocytes % Monocytes % Eosinophils % Basophils % Absolute Neutrophils Absolute Lymphocytes Absolute Monocytes Absolute Eosinophils Absolute Basophils PT INR Sodium Potassium Chloride Carbon Dioxide Anion Gap BUN Creatinine Est GFR ( Amer) Est GFR (Non-Af Amer) Glucose Calcium Total Bilirubin Direct Bilirubin Neonat Total Bilirubin Neonat Direct Bilirubin Neonat Indirect Bili AST ALT Alkaline Phosphatase Creatine Kinase CK-MB (CK-2) 0.60 Troponin I 0.021 0.021 NT-Pro-B Natriuret Pep 2210 H Total Protein Albumin Urine Color Urine Appearance Urine pH Ur Specific [place] Urine Protein Urine Glucose (UA) Urine Ketones Urine Blood Urine Nitrite Urine Bilirubin Urine Urobilinogen Ur Leukocyte Esterase Urine WBC (Auto) Urine RBC (Auto) Urine Bacteria (Auto) Urine Mucus (Auto) Urine Ascorbic Acid Digoxin 0.95 03/03/18 11:03 WBC RBC Hgb Hct MCV MCH MCHC RDW Plt Count Seg Neutrophils % Lymphocytes % Monocytes % Eosinophils % Basophils % Absolute Neutrophils Absolute Lymphocytes Absolute Monocytes Absolute Eosinophils Absolute Basophils PT INR Sodium Potassium Chloride Carbon Dioxide Anion Gap BUN Creatinine Est GFR ( Amer) Est GFR (Non-Af Amer) Glucose Calcium Total Bilirubin Direct Bilirubin Neonat Total Bilirubin Neonat Direct Bilirubin Neonat Indirect Bili AST ALT Alkaline Phosphatase Creatine Kinase CK-MB (CK-2) Troponin I NT-Pro-B Natriuret Pep Total Protein Albumin Urine Color STRAW Urine Appearance CLEAR Urine pH 7.0 Ur Specific [place] 1.009 Urine Protein 30 H Urine Glucose (UA) NEGATIVE Urine Ketones NEGATIVE Urine Blood MODERATE H Urine Nitrite NEGATIVE Urine Bilirubin NEGATIVE Urine Urobilinogen NEGATIVE Ur Leukocyte Esterase NEGATIVE Urine WBC (Auto) 0 Urine RBC (Auto) 33 Urine Bacteria (Auto) TRACE Urine Mucus (Auto) RARE Urine Ascorbic Acid NEGATIVE Digoxin Impressions: Chest X-Ray 03/03/18 06:42 IMPRESSION: 1. Persistent bibasilar airspace opacities with development of right pleural effusion. Assessment & Plan - Diagnosis (1) Pleural effusion Is this a current diagnosis for this admission?: Yes Plan: Right-sided with precise etiology unknown. Patient was recently treated for pneumonia and so this could be a parapneumonic effusion. He also has diastolic dysfunction. With his acute onset of respiratory failure I will order a thoracentesis and hopefully get some fluid for analysis. Patient will be placed on Lasix as well as empiric antibiotics and will continue with oxygen support. (2) Acute on chronic respiratory failure with hypoxemia Is this a current diagnosis for this admission?: Yes Plan: This is likely multifactorial including right pleural effusion, possible diastolic dysfunction and sequela from recent pneumonia superimposed on COPD with exacerbation. He did have an echocardiogram done in September 2017 showed a grossly intact left ventricular systolic function with a grade 1 diastolic dysfunction. His BNP is elevated and so he would benefit from some Lasix. With a pleural effusion I think it is reasonable to try and obtain a therapeutic thoracentesis and send the fluid for analysis (3) COPD with acute exacerbation Is this a current diagnosis for this admission?: Yes Plan: We will continue with bronchodilators as well as steroids (4) MRSA pneumonia Qualifiers: Laterality: bilateral Lung location: unspecified part of lung Qualified Code(s): J15.212 - Pneumonia due to Methicillin resistant Staphylococcus aureus Is this a current diagnosis for this admission?: No Plan: This is a recent diagnosis however patient has completed his antibiotics. Will obtain repeat sputum cultures. I will place him on empiric clindamycin orally. I doubt that his symptoms at this time I really secondary to an infectious process (5) Anxiety Is this a current diagnosis for this admission?: Yes Plan: Continue with benzodiazepines (6) Atrial fibrillation Qualifiers: Atrial fibrillation type: chronic Is this a current diagnosis for this admission?: Yes Plan: Patient has history of chronic atrial fibrillation. He is on no anticoagulant likely because of his propensity for falls. We will continue rate control although his A. fib normally gets poorly controlled with his infection - Time Time Spent: 30 to 50 Minutes Critical Time spent with patient: Less than 15 minutes Medications reviewed and adjusted accordingly: Yes Anticipated discharge: Home Within: within 72 hours - Inpatient Certification Based on my medical assessment, after consideration of the patient's comorbidities, presenting symptoms, or acuity I expect that the services needed warrant INPATIENT care.: Yes Medical Necessity: Need for IV Antibiotics
[2018-03-03] MEDS: TAMSULOSIN HCL 0.4 MG CAP.SR.24H PO SCH (20:24)
[2018-03-03] MEDS: DILTIAZEM HCL 30 MG TABLET PO SCH (21:59)
[2018-03-03] MEDS: ATORVASTATIN CALCIUM 80 MG TABLET PO SCH (21:59)
[2018-03-03] MEDS: GABAPENTIN 300 MG CAPSULE PO SCH (21:59)
[2018-03-03] MEDS: FLUTICASONE NASAL SPRAY 50 MCG/SPRY 120 SPRAY/16 GM NASL SCH (22:00)
[2018-03-03] MEDS: FAMOTIDINE 20 MG TABLET PO SCH (22:00)
[2018-03-03] MEDS: FLUTICASONE/SALMETEROL DISKUS 250-50 MCG/DOSE IH SCH (22:00)
[2018-03-04] MEDS: IPRATROPIUM/ALBUTEROL 0.5-2.5 MG/3 ML AMPUL NEB SCH ×4 (01:47→20:16)
[2018-03-04] MEDS: DILTIAZEM HCL 30 MG TABLET PO SCH ×3 (05:45→22:32)
[2018-03-04] MEDS: CLINDAMYCIN HCL 150 MG CAPSULE PO SCH ×4 (05:45→23:43)
[2018-03-04] MEDS: METHYLPREDNISOLONE INJ 40 MG/1 ML SDV IV SCH ×4 (05:45→23:43)
[2018-03-04] MEDS: GABAPENTIN 300 MG CAPSULE PO SCH ×3 (05:45→22:32)
[2018-03-04] MEDS: OXYCODONE-ACETAMINOPHEN 5-325 MG TABLET PO PRN (05:45)
[2018-03-04] MEDS ORDERED: MAG HYDROX/AL HYDROX/SIMETH SUSP 30 ML UDCUP PO ONE (06:45)
[2018-03-04 07:50] LABS: HEMATOCRIT 30.3 % (37.9-51.0); HEMOGLOBIN 9.6 g/dL (13.5-17.0); MEAN CORPUSCULAR HEMOGLOBIN 25.2 pg (27.0-33.4); MEAN CORPUSCULAR HGB CONC 31.8 g/dL (32.0-36.0); MEAN CORPUSCULAR VOLUME 79 fl (80-97); PLATELET COUNT 505 10^3/uL (150-450); RED BLOOD COUNT 3.82 10^6/uL (4.35-5.55); RED CELL DISTRIBUTION WIDTH 19.6 % (11.5-14.0); WHITE BLOOD COUNT 11.1 10^3/uL (4.0-10.5)
[2018-03-04 08:15] LABS: BLOOD UREA NITROGEN 32 mg/dL (7-20); CALCIUM 9.3 mg/dL (8.4-10.2); CARBON DIOXIDE 33 mmol/L (22-30); CHLORIDE 101 mmol/L (98-107); GLUCOSE 145 mg/dL (75-110); POTASSIUM 4.3 mmol/L (3.6-5.0); SODIUM 142.1 mmol/L (137-145)
[2018-03-04 08:16] LABS: ANION GAP 8 (5-19); DIGOXIN 0.83 ng/mL (0.8-2.0)
[2018-03-04] MEDS ORDERED: LIDOCAINE 1% INJ-PF (10 MG/ML) 30 ML SDV ONE (10:53)
[2018-03-04 11:29] LABS: FLUID APPEARANCE HAZY; FLUID COLOR STRAW; FLUID TYPE PLEURAL; FLUID VISCOSITY LIQUID
--- NOTE | 2018-03-04 11:40 | RADIOLOGY REPORT (SQ) ---
EXAM DESCRIPTION: U/S THORACENTESIS WITH IMAGING COMPLETED DATE/TIME: 03/04/2018 11:25 am REASON FOR STUDY: Pleural effusion, Respiratory failure A00.9 CHOLERA, UNSPECIFIED COMPARISON: None. RADIATION DOSE: None LIMITATIONS: None. PROCEDURE: Procedure, risks, benefit, and alternative explained to patient who then gave written con sent. The left chest wall was marked using ultrasound guidance. A time-out was called for correct m arking verification. Chest prepped and draped using sterile technique. Local anesthesia achieved usi ng 10 ml of 1% lidocaine injection. A thoracentesis catheter was introduced into the left pleural sp danette. Fluid was aspirated. The catheter was removed and the entry site was covered with sterile band age. No immediate complications noted. Images acquired during the procedure were stored on PACS. FINDINGS: ENTRY SITE: Left chest wall posteriorly FLUID VOLUME: 450 mL FLUID ANALYSIS: Straw-colored OTHER: None IMPRESSION: SUCCESSFUL THORACENTESIS USING ultrasound GUIDANCE. COMMENT: Patient medication list reviewed: Yes Quality ID #[id number]: Final reports for procedures using fluoroscopy that document radiation exposure munira fer, or exposure time and number of fluorographic images (if radiation exposure indices are not avail able) TECHNICAL DOCUMENTATION: JOB ID: [id number] [employer]- All Rights Reserved Reading location - IP/workstation name: [email or web address]
[2018-03-04] MEDS: ENOXAPARIN SODIUM INJ 40 MG/0.4 ML DISP.SYRIN SUBCUT SCH (11:52)
[2018-03-04] MEDS: DOCUSATE SODIUM 100 MG CAPSULE PO SCH (11:53)
[2018-03-04] MEDS: ASPIRIN 325 MG TABLET PO SCH (11:54)
[2018-03-04] MEDS: FAMOTIDINE 20 MG TABLET PO SCH ×2 (11:54→22:33)
[2018-03-04] MEDS: FLUTICASONE/SALMETEROL DISKUS 250-50 MCG/DOSE IH SCH ×2 (11:54→22:33)
[2018-03-04] MEDS: DIGOXIN 0.125 MG TABLET PO SCH (11:55)
--- NOTE | 2018-03-04 13:34 | RADIOLOGY REPORT (SQ) ---
EXAM DESCRIPTION: CHEST SINGLE VIEW COMPLETED DATE/TIME: 03/04/2018 11:28 am REASON FOR STUDY: S/P LEFT THORACENTESIS COMPARISON: 03/03/2018 EXAM PARAMETERS: NUMBER OF VIEWS: One view. TECHNIQUE: Single frontal radiographic view of the chest acquired. RADIATION DOSE: NA LIMITATIONS: None. FINDINGS: LUNGS AND PLEURA: Small right pleural effusion. No pneumothorax. Chronic interstitial ch anges in the lung bases. Opacification in the right lower lobe. MEDIASTINUM AND HILAR STRUCTURES: No masses. Contour normal. HEART AND VASCULAR STRUCTURES: Heart normal in size. Normal vasculature. BONES: No acute findings. HARDWARE: Sternotomy wires. Pacemaker. OTHER: No other significant finding. IMPRESSION: No pneumothorax. Cannot exclude right lower lobe pneumonia. Chronic lung changes. Devon ewhat loculated right pleural effusion. TECHNICAL DOCUMENTATION: JOB ID: [id number] [employer]- All Rights Reserved Reading location - IP/workstation name: [email or web address]
--- NOTE | 2018-03-04 14:03 | PDOC PROGRESS REPORT ---
Subjective Progress Note for:: 03/04/18 Subjective:: Patient presents to the emergency room with complaints of difficulty breathing and shortness of breath. This patient is well-known to this service. In fact he has been admitted about 3 times within the last couple of months for COPD as well as pneumonia and respiratory failure. He was discharged a [facility] weeks ago to [facility] and he says he had been there for 21 days precisely was actually supposed to be discharged home today but then he started having difficulty breathing. This started last night. There is no associated fever or chills and he has a cough with a whitish sputum. X-ray today shows right-sided pleural effusion which is somewhat new compared to his previous x- rays of the last few months. He remains afebrile and hypoxemic. He was subsequently found to be bronchospastic with wheezing in the ED so is being treated for possible COPD exacerbation. Reason For Visit: COPD EXACERBATION, RESPIRATORY FAILURE Physical Exam Vital Signs: Temp Pulse Resp BP Pulse Ox 98.2 F 95 16 109/49 L 94 03/04/18 04:00 03/04/18 07:50 03/04/18 07:50 03/04/18 04:00 03/04/18 07:50 Intake & Output 03/03/18 03/04/18 03/05/18 06:59 06:59 06:59 Intake Total 165 Output Total 225 Balance -60 Weight 67.7 kg General appearance: PRESENT: no acute distress, thin Head exam: PRESENT: atraumatic Eye exam: PRESENT: conjunctiva pink, EOMI, PERRLA. ABSENT: scleral icterus Ear exam: PRESENT: normal external ear exam Neck exam: ABSENT: carotid bruit, JVD, lymphadenopathy, thyromegaly Respiratory exam: PRESENT: decreased breath sounds, symmetrical, unlabored. ABSENT: chest wall tenderness, rhonchi, wheezes Cardiovascular exam: PRESENT: irregular rhythm, +S1, +S2 Pulses: PRESENT: normal carotid pulses GI/Abdominal exam: PRESENT: normal bowel sounds, soft. ABSENT: distended, guarding, mass, organolmegaly, rebound, tenderness Rectal exam: PRESENT: deferred Extremities exam: PRESENT: full ROM. ABSENT: calf tenderness, clubbing, pedal edema Neurological exam: PRESENT: alert, awake, oriented to person, oriented to place , oriented to time, oriented to situation Skin exam: PRESENT: dry, intact, warm. ABSENT: cyanosis, rash Results Laboratory Results: 03/04/18 06:56 03/04/18 06:56 03/04/18 03/04/18 03/04/18 06:56 06:56 11:02 WBC 11.1 H RBC 3.82 L Hgb 9.6 L Hct 30.3 L MCV 79 L MCH 25.2 L MCHC 31.8 L RDW 19.6 H Plt Count 505 H Sodium 142.1 Potassium 4.3 Chloride 101 Carbon Dioxide 33 H Anion Gap 8 BUN 32 H Creatinine 0.96 Est GFR ( Amer) > 60 Est GFR (Non-Af Amer) > 60 Glucose 145 H Calcium 9.3 Fluid Type PLEURAL Fluid Source Fluid Color STRAW Fluid Appearance HAZY Fluid Viscosity LIQUID Fluid WBC 385 Fluid RBC 820 Impressions: Thoracentesis Ultrasound 03/04/18 14:20 IMPRESSION: SUCCESSFUL THORACENTESIS USING ultrasound GUIDANCE. Assessment & Plan - Diagnosis (1) Acute on chronic respiratory failure with hypoxemia Is this a current diagnosis for this admission?: Yes Plan: This is likely multifactorial including right pleural effusion, possible diastolic dysfunction and sequela from recent pneumonia superimposed on COPD with exacerbation. He did have an echocardiogram done in September 2017 showed a grossly intact left ventricular systolic function with a grade 1 diastolic dysfunction. His BNP is elevated and so he would benefit from some Lasix although I will reduce dose as his BUN climbed overnight. (2) COPD with acute exacerbation Is this a current diagnosis for this admission?: Yes Plan: Continue with bronchodilators as well as steroids (3) MRSA pneumonia Qualifiers: Laterality: bilateral Lung location: unspecified part of lung Qualified Code(s): J15.212 - Pneumonia due to Methicillin resistant Staphylococcus aureus Is this a current diagnosis for this admission?: No Plan: This is a recent diagnosis however patient has completed his antibiotics. F/u repeat sputum cultures and pleural fluid analysis. Continue empiric clindamycin orally. (4) Anxiety Is this a current diagnosis for this admission?: Yes Plan: Continue with benzodiazepines (5) Atrial fibrillation Qualifiers: Atrial fibrillation type: chronic Is this a current diagnosis for this admission?: Yes Plan: Patient has history of chronic atrial fibrillation. He is on no anticoagulant likely because of his propensity for falls. (6) Pleural effusion Is this a current diagnosis for this admission?: Yes Plan: Right-sided with precise etiology unknown. Patient was recently treated for pneumonia and so this could be a parapneumonic effusion. He also has diastolic dysfunction. F/u pleural cultures (7) Pneumonia Qualifiers: Aspiration pneumonia type: unspecified Laterality: right Lung location: upper lobe of lung Is this a current diagnosis for this admission?: Yes Plan: Chest x-ray findings may be a sequela of recent bouts of pneumonia. Suggest follow-up of pleural fluid Gram stain and culture as well as chest x-ray as needed. Sputum culture has also been ordered. - Time Time Spent with patient: 15-24 minutes Medications reviewed and adjusted accordingly: Yes Anticipated discharge: Home with Homehealth Within: within 72 hours - Inpatient Certification Based on my medical assessment, after consideration of the patient's comorbidities, presenting symptoms, or acuity I expect that the services needed warrant INPATIENT care.: Yes Medical Necessity: Need for Nebulizer Therapy and Monitoring of Response, Need for IV Antibiotics - Plan Summary Plan Summary: Patient had a thoracentesis done today with removal of 450 mL of straw-colored fluid. This has been sent for analysis. Patient breathing is improved. The slight leukocytosis since yesterday is likely due to steroids. Chest x-ray obtained post procedure suggest a right lower lobe pneumonia and may be a loculated right pleural effusion. Of note patient has been treated for pneumonia believe since November and he has been on multiple antibiotics since then so this may just be a sequela of his recent infections. I did place him on an oral clindamycin as he did have a recent MRSA pneumonitis but I see no indication for anything more than this at this time. he also has a thrombocytosis which is new since his prior admission also likely due to reactive thrombocytosis The appears to be a deficit of knowledge between both the patient and his spouse. I have requested a palliative care consult but I am not really sure that the patient and spouse understand the severity of his chronic illnesses
--- NOTE | 2018-03-04 15:15 | RADIOLOGY REPORT (SQ) ---
EXAM DESCRIPTION: CHEST SINGLE VIEW COMPLETED DATE/TIME: 03/04/2018 1:31 pm REASON FOR STUDY: 2 HOURS S/P LEFT THORACENTESIS COMPARISON: 03/04/2018 EXAM PARAMETERS: NUMBER OF VIEWS: One view. TECHNIQUE: Single frontal radiographic view of the chest acquired. RADIATION DOSE: NA LIMITATIONS: None. FINDINGS: LUNGS AND PLEURA: There is no pneumothorax. Findings in the right lung are unchanged. So mewhat loculated small right pleural effusion. No significant left pleural effusion. MEDIASTINUM AND HILAR STRUCTURES: No masses. Contour normal. HEART AND VASCULAR STRUCTURES: Heart normal in size. Normal vasculature. BONES: No acute findings. HARDWARE: Sternotomy wires. Pacemaker. OTHER: No other significant finding. IMPRESSION: No pneumothorax. No interval changes are present. TECHNICAL DOCUMENTATION: JOB ID: [id number] [employer]- All Rights Reserved Reading location - IP/workstation name: [email or web address]
--- NOTE | 2018-03-04 16:19 | Palliative Consultation Report ---
Consultation From:: TREVA ELDER Consult Reason: Palliaitve care - HPI Chief Complaint: Repeated COPD exacerbations, pleural effusion, hospitalizations HPI: Appreciate palliative care consult for this 82 year old man who is admitted with recurrent shortness of breath and COPD exacerbation. He has had pleural effusion post pneumonia and had thoracentesis today to drain 450 ml. He said he is very tired and sleepy, having not slept well the last few nights. He is not sure if the thoracentesis helped his dyspnea or not. Mr. Figueroa is exhausted and asked if I could talk with him another time. He looks comfortable but is requesting to stay in fairly high fowlers position for breathing and comfort. No accessory muscles used at present for respirations, and he is using oxygen per nasal cannula. He denies pain or cough. Onset: Last week Onset/Duration: Gradual Quality of Pain: No pain Severity: None Pain Level: Denies Associated Symptoms: Productive cough, Shortness of breath Exacerbated by: Movement, Coughing Relieved by: Remaining still Past Medical History(Consults) - General Information Source: Patient, REPLACED BY [facility] Records Home Medications: Albuterol Sulfate [Albuterol Sulfate 2.5mg/3 mL] 1 vial IH RTQ4HP PRN 01/23/18 Aspirin [Aspirin 325 mg Tablet] 325 mg PO DAILY 01/23/18 Atorvastatin Calcium [Lipitor 80 mg Tablet] 80 mg PO QHS 01/23/18 Fluticasone/Salmeterol [Advair 250-50 Diskus 14 Dose/Diskus] 1 inh IH Q12 Gabapentin [Neurontin] 600 mg PO Q8 01/23/18 Ranitidine HCl [Zantac 150 mg Tablet] 150 mg PO BIDACBS 01/23/18 Tamsulosin HCl [Flomax 0.4 mg Cap.sr] 0.4 mg PO DAILY 01/23/18 Tiotropium [place] [Spiriva Handihaler 5 Cap/Kit (18 Mcg/Cap)] 1 cap IH DAILY Acetaminophen [Tylenol 325 mg Tablet] 650 mg PO Q4HP PRN tablet 02/02/18 Digoxin [Lanoxin 0.125 mg Tablet] 0.125 mg PO DAILY tablet 02/02/18 Diltiazem HCl [Cardizem 30 mg Tablet] 30 mg PO Q8 tablet 02/02/18 Fluticasone Propionate [Flonase Nasal [place] 50 Mcg/[place] 16 gm] 2 spray NASL QHS spray.pump 02/02/18 Hydrocodone/Acetaminophen [Premium 5-325 mg Tablet] 1 tab PO Q6HP PRN #5 tablet Hydrocortisone Acetate [Anusol Hc 25 mg Supp.rect] 25 mg [place] BIDP PRN supp.rect 02/02/18 Levalbuterol HCl [Xopenex Neb 0.63 mg/3 ml Ampul] 0.63 mg NEB RTQ4 vial.neb 06/15 Furosemide [Lasix 40 mg Tablet] 40 mg PO QAM 03/03/18 Ipratropium/Albuterol Sulfate [Duoneb 3 ml Ampul] 3 ml NEB RTQ6 03/03/18 Allergies/Adverse Reactions: tobramycin Adverse Reaction (Unknown, Verified 03/03/18 06:55) - Social History Lives with: Spouse/Significant other Family History: COPD, Malignancy - Brain tumor Parental Family History Reviewed: No Children Family History Reviewed: No Sibling(s) Family History Reviewed.: No Smoking Status: Former Smoker Frequency of Alcohol Use: None Hx Recreational Drug Use: No Drugs: None Hx Prescription Drug Abuse: No - Past Medical History Cardiac Medical History: Reports: Hx Atrial Fibrillation - Aspirin only due to epistaxis with systemic anticoagulation., Hx Coronary Artery Disease, Hx Heart Attack - 08/2009, Hx Hypercholesterolemia, Hx Hypertension Denies: Hx DVT, Hx Pulmonary Embolism Pulmonary Medical History: Reports: Hx COPD, Hx Pneumonia Denies: Hx Asthma, Hx Sleep Apnea Neurological Medical History: Denies: Hx Cerebrovascular Accident, Hx Seizures Endocrine Medical History: Denies: Hx Diabetes Mellitus Type 1, Hx Diabetes Mellitus Type 2, Hx Hyperthyroidism, Hx Hypothyroidism Renal/ Medical History: Denies: Hx Peritoneal Dialysis Malignancy Medical History: Reports Hx Skin Cancer GI Medical History: Reports: Hx Gastroesophageal Reflux Disease. Denies: Hx Cirrhosis, Hx Hepatitis, Hx Hiatal Hernia, Hx Ulcer Musculoskeltal Medical History: Reports Hx Arthritis, Reports Hx Musculoskeletal Trauma Psychiatric Medical History: Reports: Hx Anxiety, Hx Dementia Denies: Hx Depression Infectious Medical History: Reports: Hx MRSA. Denies: Hx C-Diff, Hx Hepatitis Hematology: Denies: Anemia, Sickle Cell Disease - Surgical History Past Surgical History: Reports: Hx Appendectomy, Hx Coronary Artery Bypass Graft , Hx Open Heart Surgery, Hx Orthopedic Surgery - back surgery, Hx Pacemaker - Immunizations Immunizations up to date: Yes Review of systems Constitutional: Malaise, Weakness Respiratory: Short of breath Gastrointestinal: No symptoms reported Neurological/Psychological: Anxiety, Weakness Ojective:Exam Vital Signs: Temp Pulse Resp BP Pulse Ox 98.2 F 95 16 109/49 L 94 03/04/18 04:00 03/04/18 07:50 03/04/18 07:50 03/04/18 04:00 03/04/18 07:50 Intake & Output 03/03/18 03/04/18 03/05/18 06:59 06:59 06:59 Intake Total 165 Output Total 225 Balance -60 Weight 67.7 kg - General General Appearance: Anxious In distress: None - HEENT Head: Normocephalic Eyes: Normal - Respiratory Respiratory Status: No respiratory distress Breath sounds: Rhonchi - Cardiovascular Pulses: Normal: Radial - Abdominal Distension: No distension Tenderness: Nontender - Neurological Cognition: Normal Orientation: AAOx4 - Psychological Associated symptoms: Anxious - Tired, states he just wants to sleep. Objective-Diagnostic Laboratory: 03/04/18 06:56 03/04/18 06:56 03/04/18 03/04/18 03/04/18 06:56 06:56 11:02 WBC 11.1 H RBC 3.82 L Hgb 9.6 L Hct 30.3 L MCV 79 L MCH 25.2 L MCHC 31.8 L RDW 19.6 H Plt Count 505 H Sodium 142.1 Potassium 4.3 Chloride 101 Carbon Dioxide 33 H Anion Gap 8 BUN 32 H Creatinine 0.96 Est GFR ( Amer) > 60 Est GFR (Non-Af Amer) > 60 Glucose 145 H Calcium 9.3 Fluid Type PLEURAL Fluid Source Fluid Color STRAW Fluid Appearance HAZY Fluid Viscosity LIQUID Fluid WBC 385 Fluid RBC 820 Plan and Recommendation Plan and Recommendation: No family with patient. I left my card with him and briefly discussed palliative alf visits. This patient may soon be appropriate for hospice with COPD if symptoms and frequent hospitalizations persist. I have asked RN liason from [facility] to check on him next week as I will be OOT. Appreciate consult request, no recommendations at this time. Javi follow at home if he agrees and agrees. - Time Spent with Patient Time spent with patient: 15 to 30 Minutes Time: 30 min total time
[2018-03-04] MEDS: TAMSULOSIN HCL 0.4 MG CAP.SR.24H PO SCH (17:17)
[2018-03-04] MEDS: ATORVASTATIN CALCIUM 80 MG TABLET PO SCH (22:32)
[2018-03-04] MEDS: FLUTICASONE NASAL SPRAY 50 MCG/SPRY 120 SPRAY/16 GM NASL SCH (22:33)
[2018-03-05] MEDS: IPRATROPIUM/ALBUTEROL 0.5-2.5 MG/3 ML AMPUL NEB SCH ×4 (01:52→20:33)
[2018-03-05 04:10] LABS: ANION GAP 7 (5-19); BLOOD UREA NITROGEN 44 mg/dL (7-20); CALCIUM 9.2 mg/dL (8.4-10.2); CARBON DIOXIDE 34 mmol/L (22-30); CHLORIDE 102 mmol/L (98-107); GLUCOSE 147 mg/dL (75-110); POTASSIUM 4.6 mmol/L (3.6-5.0); SODIUM 143.2 mmol/L (137-145)
[2018-03-05] MEDS: GABAPENTIN 300 MG CAPSULE PO SCH ×3 (05:26→21:57)
[2018-03-05] MEDS: CLINDAMYCIN HCL 150 MG CAPSULE PO SCH (05:26)
[2018-03-05] MEDS: METHYLPREDNISOLONE INJ 40 MG/1 ML SDV IV SCH ×3 (05:26→17:13)
[2018-03-05] MEDS: DILTIAZEM HCL 30 MG TABLET PO SCH ×3 (05:26→21:57)
[2018-03-05] MEDS ORDERED: FUROSEMIDE 20 MG TABLET PO SCH (10:00)
[2018-03-05] MEDS ORDERED: CEFTRIAXONE 1 GM/D5W RTU 1 GM/50 ML RTUPB IV SCH (10:00)
[2018-03-05] MEDS: ENOXAPARIN SODIUM INJ 40 MG/0.4 ML DISP.SYRIN SUBCUT SCH (10:01)
[2018-03-05] MEDS: DIGOXIN 0.125 MG TABLET PO SCH (10:01)
[2018-03-05] MEDS: FLUTICASONE/SALMETEROL DISKUS 250-50 MCG/DOSE IH SCH ×2 (10:02→21:57)
[2018-03-05] MEDS: ASPIRIN 325 MG TABLET PO SCH (10:02)
[2018-03-05] MEDS: DOCUSATE SODIUM 100 MG CAPSULE PO SCH (10:02)
[2018-03-05] MEDS: FAMOTIDINE 20 MG TABLET PO SCH ×2 (10:02→21:57)
[2018-03-05] MEDS ORDERED: CEFTRIAXONE SODIUM 1,000 MG in NORMAL SALINE 100 ML IV SCH (12:00)
[2018-03-05] MEDS: TAMSULOSIN HCL 0.4 MG CAP.SR.24H PO SCH (17:13)
--- NOTE | 2018-03-05 20:07 | PDOC PROGRESS REPORT ---
Subjective Progress Note for:: 03/05/18 Subjective:: Patient is not having chest pain. He thinks that he is breathing and feeling better overall. No palpitations. Is not sleeping well in the hospital. He is eating and drinking relatively well. No nausea vomiting. No fever or chills far as he can tell. Reason For Visit: COPD EXACERBATION, RESPIRATORY FAILURE Physical Exam Vital Signs: Temp Pulse Resp BP Pulse Ox 98.3 F 101 H 20 94/57 L 98 03/05/18 15:38 03/05/18 19:00 03/05/18 15:38 03/05/18 15:38 03/05/18 15:38 Intake & Output 03/04/18 03/05/18 03/06/18 06:59 06:59 06:59 Intake Total 165 720 460 Output Total 225 300 Balance -60 420 460 Weight 67.7 kg 67.7 kg General appearance: PRESENT: no acute distress, cooperative, thin Head exam: PRESENT: atraumatic, normocephalic, other - Significant bitemporal wasting. Eye exam: PRESENT: conjunctiva pink. ABSENT: scleral icterus Ear exam: PRESENT: normal external ear exam Teeth exam: PRESENT: poor dentation Neck exam: PRESENT: lymphadenopathy Respiratory exam: PRESENT: decreased breath sounds, unlabored. ABSENT: rales, rhonchi, wheezes Cardiovascular exam: PRESENT: RRR Pulses: PRESENT: normal radial pulses GI/Abdominal exam: PRESENT: normal bowel sounds, soft. ABSENT: distended, firm , tenderness Rectal exam: PRESENT: deferred Extremities exam: PRESENT: +1 edema Neurological exam: PRESENT: alert, awake, oriented to person, oriented to place , oriented to situation, CN II-XII grossly intact Psychiatric exam: PRESENT: appropriate affect. ABSENT: anxious Skin exam: PRESENT: dry, warm Results Laboratory Results: 03/04/18 06:56 03/05/18 03:36 03/04/18 03/04/18 03/04/18 11:02 11:02 11:02 Sodium Potassium Chloride Carbon Dioxide Anion Gap BUN Creatinine Est GFR ( Amer) Est GFR (Non-Af Amer) Glucose Calcium Magnesium Fluid Glucose 202 Fluid Total Protein 2.0 Fluid LDH 100 03/05/18 03/05/18 03:36 10:11 Sodium 143.2 Potassium 4.6 Chloride 102 Carbon Dioxide 34 H Anion Gap 7 BUN 44 H Creatinine 1.01 Est GFR ( Amer) > 60 Est GFR (Non-Af Amer) > 60 Glucose 147 H Calcium 9.2 Magnesium 2.5 H Fluid Glucose Fluid Total Protein Fluid LDH 03/05/18 03:36 NT-Pro-B Natriuret Pep 2890 H Impressions: Chest X-Ray 03/04/18 00:00 IMPRESSION: No pneumothorax. No interval changes are present. Thoracentesis Ultrasound 03/04/18 14:20 IMPRESSION: SUCCESSFUL THORACENTESIS USING ultrasound GUIDANCE. Assessment & Plan - Diagnosis (1) Acute on chronic diastolic heart failure Is this a current diagnosis for this admission?: Yes Plan: Patient has had his pleural effusion tapped. We are waiting fluid results. This is potentially both heart failure and parapneumonic related. Is being diuresed and is being treated for pneumonia. (2) COPD with acute exacerbation Is this a current diagnosis for this admission?: Yes (3) MRSA pneumonia Qualifiers: Laterality: bilateral Lung location: unspecified part of lung Qualified Code(s): J15.212 - Pneumonia due to Methicillin resistant Staphylococcus aureus Is this a current diagnosis for this admission?: No Plan: Patient was recently admitted to this hospital and treated for a MRSA pneumonia. There does not seem to be MRSA growing in his current sputum culture. (4) Pleural effusion Is this a current diagnosis for this admission?: Yes Plan: Fluid results pending. His breathing significantly easier since the thoracentesis. (5) Acute on chronic respiratory failure with hypoxemia Is this a current diagnosis for this admission?: Yes Plan: Multifactorial with pleural effusion, pneumonia, heart failure. Underlying conditions are being treated. He feels better. (6) Anxiety Is this a current diagnosis for this admission?: Yes Plan: Patient becomes anxious when he is dyspneic. He is stable from this perspective now. (7) Pneumonia Qualifiers: Aspiration pneumonia type: unspecified Laterality: right Lung location: upper lobe of lung Is this a current diagnosis for this admission?: Yes Plan: Today his sputum culture grew both gram-negative rods and what appears to be Streptococcus. I have started him on cefepime as he does have a history of pseudomonal pneumonia. This will also cover a strep pneumo pneumonia. Will await final culture results. (8) Atrial fibrillation Qualifiers: Atrial fibrillation type: chronic Is this a current diagnosis for this admission?: Yes Plan: Patient is on diltiazem 30 mg p.o. every 8 hours. His heart rate is right around 100 and his blood pressure has been showing systolic in the 90s and sometimes his diuresis was held because of this. I am going to try to transition his rate control medication over to metoprolol so that possibly we can get his blood pressure to increase some which will give us more room for diuresis. Hold parameters for heart rate and blood pressure have been placed for the diltiazem and metoprolol. - Time Time Spent with patient: 25-34 minutes Medications reviewed and adjusted accordingly: Yes - Inpatient Certification Based on my medical assessment, after consideration of the patient's comorbidities, presenting symptoms, or acuity I expect that the services needed warrant INPATIENT care.: Yes I certify that my determination is in accordance with my understanding of Medicare's requirements for reasonable and necessary INPATIENT services [42 CFR 412.3e].: Yes Medical Necessity: Significant Comorbidiites Make Outpatient Treatment Too Risky , Need Close Monitoring Due to Risk of Patient Decompensation, Need For Continuous Telemetry Monitoring, Need for IV Antibiotics, Risk of Complication if Not Cared For in Hospital
[2018-03-05] MEDS ORDERED: CEFEPIME 2 GM/D5W RTU 2 GM/50 ML RTUPB IV ONE (21:45)
[2018-03-05] MEDS: METOPROLOL TARTRATE 25 MG TABLET PO SCH (21:57)
[2018-03-05] MEDS: OXYCODONE-ACETAMINOPHEN 5-325 MG TABLET PO PRN (21:57)
[2018-03-05] MEDS: FLUTICASONE NASAL SPRAY 50 MCG/SPRY 120 SPRAY/16 GM NASL SCH (21:57)
[2018-03-05] MEDS: ATORVASTATIN CALCIUM 80 MG TABLET PO SCH (21:57)
[2018-03-05] MEDS ORDERED: CEFEPIME 2 GM/D5W RTU 2 GM/50 ML RTUPB IV SCH (22:00)
[2018-03-06] MEDS: IPRATROPIUM/ALBUTEROL 0.5-2.5 MG/3 ML AMPUL NEB SCH ×4 (02:17→20:27)
[2018-03-06] MEDS: DILTIAZEM HCL 30 MG TABLET PO SCH ×2 (05:58→21:35)
[2018-03-06] MEDS: OXYCODONE-ACETAMINOPHEN 5-325 MG TABLET PO PRN (05:58)
[2018-03-06] MEDS: METHYLPREDNISOLONE INJ 40 MG/1 ML SDV IV SCH ×2 (05:58→19:33)
[2018-03-06] MEDS: GABAPENTIN 300 MG CAPSULE PO SCH ×3 (05:58→21:35)
[2018-03-06] MEDS ORDERED: FUROSEMIDE 20 MG TABLET PO SCH (07:24)
[2018-03-06] MEDS: ASPIRIN 325 MG TABLET PO SCH (09:51)
[2018-03-06] MEDS: FAMOTIDINE 20 MG TABLET PO SCH ×2 (09:51→21:35)
[2018-03-06] MEDS: METOPROLOL TARTRATE 25 MG TABLET PO SCH ×2 (09:52→21:34)
[2018-03-06] MEDS: ENOXAPARIN SODIUM INJ 40 MG/0.4 ML DISP.SYRIN SUBCUT SCH (09:53)
[2018-03-06] MEDS: DOCUSATE SODIUM 100 MG CAPSULE PO SCH (09:54)
[2018-03-06] MEDS: FLUTICASONE/SALMETEROL DISKUS 250-50 MCG/DOSE IH SCH ×2 (09:54→21:35)
[2018-03-06] MEDS: DIGOXIN 0.125 MG TABLET PO SCH (09:54)
[2018-03-06] MEDS ORDERED: CEFEPIME HCL 2 GM in DEXTROSE 5%-WATER 100 ML IV SCH (10:00)
[2018-03-06] MEDS ORDERED: CEFEPIME HCL 2 GM in DEXTROSE 5%-WATER 100 ML IV ONE (13:00)
--- NOTE | 2018-03-06 13:42 | PDOC PROGRESS REPORT ---
Subjective Progress Note for:: 03/06/18 Subjective:: Patient is breathing well today. He is able to expectorate sputum. No blood. Eating and drinking relatively well but he does not like the food here. His strength is returning. No fever or chills. No chest pain. No abdominal pain nausea or vomiting. He moved his bowels today. Reason For Visit: COPD EXACERBATION, RESPIRATORY FAILURE Physical Exam Vital Signs: Temp Pulse Resp BP Pulse Ox 97.6 F 73 18 124/50 L 97 03/06/18 07:36 03/06/18 07:36 03/06/18 07:36 03/06/18 07:36 03/06/18 07:36 Intake & Output 03/05/18 03/06/18 03/07/18 06:59 06:59 06:59 Intake Total 720 860 Output Total 300 Balance 420 860 Weight 67.7 kg 71.6 kg General appearance: PRESENT: no acute distress, cooperative, thin Head exam: PRESENT: atraumatic, normocephalic Eye exam: PRESENT: conjunctiva pink, EOMI. ABSENT: scleral icterus Ear exam: PRESENT: normal external ear exam Mouth exam: PRESENT: moist, neck supple Neck exam: ABSENT: lymphadenopathy Respiratory exam: PRESENT: decreased breath sounds, rales, unlabored. ABSENT: rhonchi, wheezes Cardiovascular exam: PRESENT: RRR Pulses: PRESENT: normal radial pulses, normal dorsalis pedis pul GI/Abdominal exam: PRESENT: normal bowel sounds, soft. ABSENT: distended, tenderness Rectal exam: PRESENT: deferred Extremities exam: PRESENT: other - Trace bilateral ankle edema Psychiatric exam: PRESENT: appropriate affect. ABSENT: anxious Skin exam: PRESENT: dry, intact, warm Results Laboratory Results: 03/04/18 06:56 03/05/18 03:36 03/04/18 03/04/18 03/04/18 11:02 11:02 11:02 Fluid Glucose 202 Fluid Total Protein 2.0 Fluid LDH 100 03/05/18 03:36 NT-Pro-B Natriuret Pep 2890 H Impressions: Chest X-Ray 03/04/18 00:00 IMPRESSION: No pneumothorax. No interval changes are present. Thoracentesis Ultrasound 03/04/18 14:20 IMPRESSION: SUCCESSFUL THORACENTESIS USING ultrasound GUIDANCE. Assessment & Plan - Diagnosis (1) Acute on chronic diastolic heart failure Is this a current diagnosis for this admission?: Yes Plan: Pleural fluid looks likely to be a transudate. He does have evidence of pneumonia however. Family tells me that he may have been fluid overloaded while in a alf prior to this hospitalization. They described that he was receiving large amounts of IV fluids and became very edematous requiring diuresis just prior to this hospitalization. (2) COPD with acute exacerbation Is this a current diagnosis for this admission?: Yes Plan: Stable. Continue to titrate methylprednisolone down eventually to off. Patient is improving from a respiratory perspective. Continue antibiotics for gram-negative rods in the sputum. Continue bronchodilators as ordered. (3) MRSA pneumonia Qualifiers: Laterality: bilateral Lung location: unspecified part of lung Qualified Code(s): J15.212 - Pneumonia due to Methicillin resistant Staphylococcus aureus Is this a current diagnosis for this admission?: No Plan: Recent hospitalization for MRSA pneumonia. He was discharged to rehab for continued treatment with vancomycin. This treatment has been completed. (4) Pleural effusion Is this a current diagnosis for this admission?: Yes Plan: Fluid results show likely transudate. There are multiple cells however including lymphocytes and others that the pathologist is viewing. Ulcer hard to interpret at this point secondary to clumping and I will await pathology report for that. Thoracentesis culture is negative to date. Sputum culture is growing negative rods. Today the patient's and family told me that while he was in rehab receiving vancomycin for a recent MRSA pneumonia he was fluid overloaded and became very edematous. They are wondering if this pleural effusion is potentially related to those events. (5) Acute on chronic respiratory failure with hypoxemia Is this a current diagnosis for this admission?: Yes Plan: Possibly secondary to CHF exacerbation/volume overload also with pneumonia contributing. Patient feels significantly better. He is getting close to his baseline with his respiratory status. (6) Anxiety Is this a current diagnosis for this admission?: Yes Plan: Patient does not feel anxious today. His breathing is stable. Difficulty breathing is what makes him the most anxious he states today. (7) Pneumonia Qualifiers: Aspiration pneumonia type: unspecified Laterality: right Lung location: upper lobe of lung Is this a current diagnosis for this admission?: Yes Plan: Patient has had multiple pneumonias over the past few months. Most recently he was discharged from this hospital with a MRSA pneumonia. He is now growing gram -negative rods in his sputum culture. Etiology of recurrent pneumonia is not entirely clear though he has been in and out of the hospital and this could be related to hospitalization. I think patient would benefit from pulmonary follow -up on discharge and so we will set him up with an appointment with local job honer. He agrees with this plan. For now continue cefepime for gram- negative rods and sputum. (8) Atrial fibrillation Qualifiers: Atrial fibrillation type: chronic Qualified Code(s): I48.2 - Chronic atrial fibrillation Is this a current diagnosis for this admission?: Yes Plan: Heart rate stable. Blood pressure is improving. I am working on discontinuing diltiazem because his blood pressure has been pretty low and it has been difficult to administer Lasix for this reason. I am trying to switch him over to metoprolol for A. fib rate control. - Time Time Spent with patient: 25-34 minutes Anticipated discharge: Home with Homehealth - Family meeting held today in patient's room. 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
[2018-03-06] MEDS: TAMSULOSIN HCL 0.4 MG CAP.SR.24H PO SCH (19:33)
[2018-03-06] MEDS: FLUTICASONE NASAL SPRAY 50 MCG/SPRY 120 SPRAY/16 GM NASL SCH (21:35)
[2018-03-06] MEDS: CEFEPIME HCL 2 GM in DEXTROSE 5%-WATER 100 ML IV SCH (21:35)
[2018-03-06] MEDS: ATORVASTATIN CALCIUM 80 MG TABLET PO SCH (21:35)
[2018-03-07] MEDS: IPRATROPIUM/ALBUTEROL 0.5-2.5 MG/3 ML AMPUL NEB SCH ×4 (02:22→19:40)
[2018-03-07] MEDS: METHYLPREDNISOLONE INJ 40 MG/1 ML SDV IV SCH (06:32)
[2018-03-07] MEDS: GABAPENTIN 300 MG CAPSULE PO SCH ×3 (06:32→22:13)
[2018-03-07 06:45] LABS: HEMATOCRIT 28.6 % (37.9-51.0); HEMOGLOBIN 9.2 g/dL (13.5-17.0); MEAN CORPUSCULAR HEMOGLOBIN 25.5 pg (27.0-33.4); MEAN CORPUSCULAR HGB CONC 32.3 g/dL (32.0-36.0); MEAN CORPUSCULAR VOLUME 79 fl (80-97); PLATELET COUNT 448 10^3/uL (150-450); RED BLOOD COUNT 3.62 10^6/uL (4.35-5.55); RED CELL DISTRIBUTION WIDTH 19.2 % (11.5-14.0); WHITE BLOOD COUNT 12.3 10^3/uL (4.0-10.5)
[2018-03-07 07:18] LABS: ANION GAP 6 (5-19); BLOOD UREA NITROGEN 43 mg/dL (7-20); CALCIUM 9.3 mg/dL (8.4-10.2); CARBON DIOXIDE 34 mmol/L (22-30); CHLORIDE 101 mmol/L (98-107); GLUCOSE 131 mg/dL (75-110); POTASSIUM 4.8 mmol/L (3.6-5.0); SODIUM 141.2 mmol/L (137-145)
[2018-03-07] MEDS ORDERED: ONDANSETRON HCL INJ/PF 4 MG/2 ML SDV IV PRN (09:30)
[2018-03-07] MEDS: CEFEPIME HCL 2 GM in DEXTROSE 5%-WATER 100 ML IV SCH ×2 (12:02→22:12)
[2018-03-07] MEDS: FAMOTIDINE 20 MG TABLET PO SCH ×2 (12:24→22:13)
[2018-03-07] MEDS: ASPIRIN 325 MG TABLET PO SCH (12:24)
[2018-03-07] MEDS: METOPROLOL TARTRATE 25 MG TABLET PO SCH ×2 (12:25→22:13)
[2018-03-07] MEDS: ENOXAPARIN SODIUM INJ 40 MG/0.4 ML DISP.SYRIN SUBCUT SCH (12:25)
[2018-03-07] MEDS: OXYCODONE-ACETAMINOPHEN 5-325 MG TABLET PO PRN (12:27)
[2018-03-07] MEDS: PREDNISONE 20 MG TABLET PO SCH (12:28)
[2018-03-07] MEDS: DILTIAZEM HCL 30 MG TABLET PO SCH (12:28)
[2018-03-07] MEDS: FUROSEMIDE 40 MG TABLET PO SCH (12:28)
[2018-03-07] MEDS: DOCUSATE SODIUM 100 MG CAPSULE PO SCH (12:29)
[2018-03-07] MEDS: FLUTICASONE/SALMETEROL DISKUS 250-50 MCG/DOSE IH SCH ×2 (12:31→22:12)
[2018-03-07] MEDS: DIGOXIN 0.125 MG TABLET PO SCH (12:31)
[2018-03-07] MEDS ORDERED: METOPROLOL TARTRATE 25 MG TABLET PO SCH (19:23)
--- NOTE | 2018-03-07 19:29 | PDOC PROGRESS REPORT ---
Subjective Progress Note for:: 03/07/18 Subjective:: She is feeling pretty well today. No difficulty breathing. Getting closer to normal. No fevers or chills. Dry cough. No hemoptysis. Chest pain. He has not moved his bowels for 2 days does not feel constipated. No dysuria. Reason For Visit: PLEURAL EFFUSION,CHF WITH EXACERBATION Physical Exam Vital Signs: Temp Pulse Resp BP Pulse Ox 97.9 F 97 18 101/55 L 100 03/07/18 16:18 03/07/18 16:18 03/07/18 16:18 03/07/18 16:18 03/07/18 16:18 Intake & Output 03/06/18 03/07/18 03/08/18 06:59 06:59 06:59 Intake Total 1732 240 Balance 1732 240 Weight 71.1 kg General appearance: PRESENT: no acute distress, cooperative, thin Head exam: PRESENT: atraumatic, normocephalic Eye exam: PRESENT: EOMI Mouth exam: PRESENT: moist, neck supple Respiratory exam: PRESENT: decreased breath sounds - Bilateral bases he is decreased, rales, unlabored. ABSENT: rhonchi, wheezes Cardiovascular exam: PRESENT: irregular rhythm, systolic murmur Pulses: PRESENT: normal radial pulses GI/Abdominal exam: PRESENT: normal bowel sounds, soft. ABSENT: distended, firm , tenderness Neurological exam: PRESENT: alert, awake, oriented to person, oriented to place , oriented to situation, CN II-XII grossly intact Psychiatric exam: PRESENT: appropriate affect. ABSENT: anxious Skin exam: PRESENT: dry, warm Results Laboratory Results: 03/07/18 06:19 03/07/18 06:19 03/07/18 03/07/18 06:19 06:19 WBC 12.3 H RBC 3.62 L Hgb 9.2 L Hct 28.6 L MCV 79 L MCH 25.5 L MCHC 32.3 RDW 19.2 H Plt Count 448 Sodium 141.2 Potassium 4.8 Chloride 101 Carbon Dioxide 34 H Anion Gap 6 BUN 43 H Creatinine 0.91 Est GFR ( Amer) > 60 Est GFR (Non-Af Amer) > 60 Glucose 131 H Calcium 9.3 Impressions: Chest X-Ray 03/04/18 00:00 IMPRESSION: No pneumothorax. No interval changes are present. Thoracentesis Ultrasound 03/04/18 14:20 IMPRESSION: SUCCESSFUL THORACENTESIS USING ultrasound GUIDANCE. Assessment & Plan - Diagnosis (1) Acute on chronic diastolic heart failure Is this a current diagnosis for this admission?: Yes Plan: We will continue with current diuresis. Patient is improving from a respiratory perspective. (2) COPD with acute exacerbation Is this a current diagnosis for this admission?: Yes Plan: We will continue with breathing treatments as ordered, will continue prednisone taper, leukocytosis likely secondary to steroids d (3) MRSA pneumonia Qualifiers: Laterality: bilateral Lung location: unspecified part of lung Qualified Code(s): J15.212 - Pneumonia due to Methicillin resistant Staphylococcus aureus Is this a current diagnosis for this admission?: No Plan: Recent history of MRSA pneumonia. He recently completed treatment and a sniff. (4) Pleural effusion Is this a current diagnosis for this admission?: Yes Plan: Secondary to possibly pneumonia and congestive heart failure. (5) Acute on chronic respiratory failure with hypoxemia Is this a current diagnosis for this admission?: Yes Plan: Improving. Continue to treat underlying conditions. (6) Anxiety Is this a current diagnosis for this admission?: Yes Plan: Stable. Patient sometimes becomes anxious when he is dyspneic. He has responded well to Ativan low-dose in the past. (7) Pneumonia Qualifiers: Aspiration pneumonia type: unspecified Laterality: right Lung location: upper lobe of lung Is this a current diagnosis for this admission?: Yes Plan: Gram-negative rods growing in sputum. Continue cefepime for now. (8) Atrial fibrillation Qualifiers: Atrial fibrillation type: chronic Qualified Code(s): I48.2 - Chronic atrial fibrillation Is this a current diagnosis for this admission?: Yes Plan: Patient is relatively well rate controlled. He has however been struggling with hypotension. For this reason I have been transitioning him from diltiazem to metoprolol. Today he will receive his last dose of diltiazem and I have put him on metoprolol 25 mg p.o. every 8 hours with hold parameters. Secondary to hypotension we have had to hold several doses of diuresis and that was 1 of the motivating factors behind this medication change. - Time Time Spent with patient: 15-24 minutes Medications reviewed and adjusted accordingly: Yes Anticipated discharge: Home with Homehealth - Patient will likely need home physical therapy upon discharge. - Inpatient Certification Based on my medical assessment, after consideration of the patient's comorbidities, presenting symptoms, or acuity I expect that the services needed warrant INPATIENT care.: Yes I certify that my determination is in accordance with my understanding of Medicare's requirements for reasonable and necessary INPATIENT services [42 CFR 412.3e].: Yes Medical Necessity: Need Close Monitoring Due to Risk of Patient Decompensation, Risk of Complication if Not Cared For in Hospital
[2018-03-07] MEDS: TAMSULOSIN HCL 0.4 MG CAP.SR.24H PO SCH (19:47)
[2018-03-07] MEDS: FLUTICASONE NASAL SPRAY 50 MCG/SPRY 120 SPRAY/16 GM NASL SCH (22:12)
[2018-03-07] MEDS: ATORVASTATIN CALCIUM 80 MG TABLET PO SCH (22:13)
[2018-03-08] MEDS: IPRATROPIUM/ALBUTEROL 0.5-2.5 MG/3 ML AMPUL NEB SCH ×4 (01:25→19:33)
[2018-03-08] MEDS: METOPROLOL TARTRATE 25 MG TABLET PO SCH ×3 (05:07→21:30)
[2018-03-08] MEDS: GABAPENTIN 300 MG CAPSULE PO SCH ×3 (05:07→21:24)
[2018-03-08] MEDS: PREDNISONE 20 MG TABLET PO SCH (09:10)
[2018-03-08] MEDS: ENOXAPARIN SODIUM INJ 40 MG/0.4 ML DISP.SYRIN SUBCUT SCH (09:10)
[2018-03-08] MEDS: FUROSEMIDE 40 MG TABLET PO SCH (09:10)
[2018-03-08] MEDS: FAMOTIDINE 20 MG TABLET PO SCH ×2 (09:10→21:24)
[2018-03-08] MEDS: ASPIRIN 325 MG TABLET PO SCH (09:10)
[2018-03-08] MEDS: DIGOXIN 0.125 MG TABLET PO SCH (09:10)
[2018-03-08] MEDS: FLUTICASONE/SALMETEROL DISKUS 250-50 MCG/DOSE IH SCH ×2 (09:10→21:24)
[2018-03-08] MEDS: DOCUSATE SODIUM 100 MG CAPSULE PO SCH (09:10)
[2018-03-08] MEDS: CEFEPIME HCL 2 GM in DEXTROSE 5%-WATER 100 ML IV SCH (09:13)
[2018-03-08 09:27] LABS: HEMATOCRIT 29.2 % (37.9-51.0); HEMOGLOBIN 9.3 g/dL (13.5-17.0); MEAN CORPUSCULAR HEMOGLOBIN 25.3 pg (27.0-33.4); MEAN CORPUSCULAR HGB CONC 31.8 g/dL (32.0-36.0); MEAN CORPUSCULAR VOLUME 80 fl (80-97); PLATELET COUNT 428 10^3/uL (150-450); RED BLOOD COUNT 3.67 10^6/uL (4.35-5.55); RED CELL DISTRIBUTION WIDTH 19.3 % (11.5-14.0); WHITE BLOOD COUNT 15.6 10^3/uL (4.0-10.5)
[2018-03-08] MEDS: TAMSULOSIN HCL 0.4 MG CAP.SR.24H PO SCH (17:17)
--- NOTE | 2018-03-08 17:18 | PDOC PROGRESS REPORT ---
Subjective Progress Note for:: 03/08/18 Subjective:: The patient is resting in his bed. He states that his breathing is improving and he feels like he is getting a little closer to his baseline. He denies fever chills. No chest pain, increased shortness of breath or cough. No nausea vomiting or diarrhea. No dysuria, frequency or hematuria Reason For Visit: PLEURAL EFFUSION,CHF WITH EXACERBATION Physical Exam Vital Signs: Temp Pulse Resp BP Pulse Ox 98.4 F 99 16 88/51 L 98 03/08/18 16:00 03/08/18 16:00 03/08/18 16:00 03/08/18 16:00 03/08/18 16:00 Intake & Output 03/07/18 03/08/18 03/09/18 06:59 06:59 06:59 Intake Total 1732 390 Balance 1732 390 Weight 71.1 kg 71.7 kg General appearance: PRESENT: no acute distress, well-developed, well-nourished Head exam: PRESENT: atraumatic, normocephalic Ear exam: PRESENT: normal external ear exam Mouth exam: PRESENT: moist, tongue midline Respiratory exam: PRESENT: clear to auscultation alicia. ABSENT: rales, rhonchi, wheezes Cardiovascular exam: PRESENT: RRR. ABSENT: diastolic murmur, rubs, systolic murmur GI/Abdominal exam: PRESENT: normal bowel sounds, soft. ABSENT: distended, guarding, mass, organolmegaly, rebound, tenderness Rectal exam: PRESENT: deferred Extremities exam: PRESENT: full ROM. ABSENT: calf tenderness, clubbing, pedal edema Neurological exam: PRESENT: alert, awake, oriented to person, oriented to place , oriented to time, oriented to situation, CN II-XII grossly intact. ABSENT: motor sensory deficit Psychiatric exam: PRESENT: appropriate affect, normal mood. ABSENT: homicidal ideation, suicidal ideation Skin exam: PRESENT: dry, intact, warm. ABSENT: cyanosis, rash Results Laboratory Results: 03/08/18 08:57 03/07/18 06:19 03/08/18 08:57 WBC 15.6 H RBC 3.67 L Hgb 9.3 L Hct 29.2 L MCV 80 MCH 25.3 L MCHC 31.8 L RDW 19.3 H Plt Count 428 Impressions: Chest X-Ray 03/04/18 00:00 IMPRESSION: No pneumothorax. No interval changes are present. Thoracentesis Ultrasound 03/04/18 14:20 IMPRESSION: SUCCESSFUL THORACENTESIS USING ultrasound GUIDANCE. Assessment & Plan - Diagnosis (1) Acute on chronic respiratory failure with hypoxemia Is this a current diagnosis for this admission?: Yes Plan: The patient is improving. He is just about back to his baseline oxygen requirements. (2) Pneumonia Qualifiers: Aspiration pneumonia type: unspecified Laterality: right Lung location: upper lobe of lung Is this a current diagnosis for this admission?: Yes Plan: Sputum cultures positive for Acinetobacter. There is quite a bit of resistance to this organism. He has been on cefepime with only intermediate susceptibility. Going to change him over to meropenem. We will give him a couple of days of broad-spectrum antibiotics and then possibly de-escalate. His organism is sensitive to Unasyn. I will discuss further with pharmacy whether Augmentin would work for this patient. (3) Acute on chronic diastolic heart failure Is this a current diagnosis for this admission?: Yes Plan: He has been transitioned to oral Lasix at this point. His acute heart failure exacerbation has resolved (4) COPD with acute exacerbation Is this a current diagnosis for this admission?: Yes Plan: Continue p.o. prednisone (5) Pleural effusion Is this a current diagnosis for this admission?: Yes Plan: Stable (6) Atrial fibrillation Qualifiers: Atrial fibrillation type: chronic Qualified Code(s): I48.2 - Chronic atrial fibrillation Is this a current diagnosis for this admission?: Yes Plan: Currently rate controlled (7) Hyperglycemia Is this a current diagnosis for this admission?: Yes Plan: Secondary to steroids (8) Anemia Is this a current diagnosis for this admission?: Yes Plan: He has a microcytic anemia. His hemoglobin is stable (9) Anxiety Is this a current diagnosis for this admission?: Yes Plan: Stable (10) Hypernatremia Is this a current diagnosis for this admission?: Yes Plan: Resolved - Time Time Spent with patient: 25-34 minutes - Inpatient Certification Medical Necessity: Other - Inpatient hospitalization remains necessary. The patient has a positive sputum culture with lots of resistance. His antibiotic coverage needs to be changed as he has not been on the proper antibiotic. Timing of disposition will be determined by his clinical course
[2018-03-08] MEDS: FLUTICASONE NASAL SPRAY 50 MCG/SPRY 120 SPRAY/16 GM NASL SCH (21:24)
[2018-03-08] MEDS: ATORVASTATIN CALCIUM 80 MG TABLET PO SCH (21:24)
[2018-03-08] MEDS: MEROPENEM 1 GM in NORMAL SALINE 50 ML IV SCH (21:25)
[2018-03-08] MEDS: OXYCODONE-ACETAMINOPHEN 5-325 MG TABLET PO PRN (21:29)
[2018-03-09] MEDS: IPRATROPIUM/ALBUTEROL 0.5-2.5 MG/3 ML AMPUL NEB SCH ×4 (02:05→19:45)
[2018-03-09 05:08] LABS: ANION GAP 5 (5-19); BLOOD UREA NITROGEN 41 mg/dL (7-20); CALCIUM 8.9 mg/dL (8.4-10.2); CARBON DIOXIDE 35 mmol/L (22-30); CHLORIDE 102 mmol/L (98-107); GLUCOSE 90 mg/dL (75-110); POTASSIUM 4.4 mmol/L (3.6-5.0); SODIUM 142.4 mmol/L (137-145)
[2018-03-09] MEDS: MEROPENEM 1 GM in NORMAL SALINE 50 ML IV SCH ×3 (06:07→21:35)
[2018-03-09] MEDS: METOPROLOL TARTRATE 25 MG TABLET PO SCH ×3 (06:07→21:35)
[2018-03-09] MEDS ORDERED: GABAPENTIN 300 MG CAPSULE ONE (06:14)
[2018-03-09] MEDS: GABAPENTIN 300 MG CAPSULE PO SCH ×3 (06:16→21:35)
[2018-03-09] MEDS: ENOXAPARIN SODIUM INJ 40 MG/0.4 ML DISP.SYRIN SUBCUT SCH (09:05)
[2018-03-09] MEDS: DOCUSATE SODIUM 100 MG CAPSULE PO SCH (09:06)
[2018-03-09] MEDS: PREDNISONE 20 MG TABLET PO SCH (09:06)
[2018-03-09] MEDS: ASPIRIN 325 MG TABLET PO SCH (09:06)
[2018-03-09] MEDS: DIGOXIN 0.125 MG TABLET PO SCH (09:06)
[2018-03-09] MEDS: FUROSEMIDE 40 MG TABLET PO SCH (09:07)
[2018-03-09] MEDS: FAMOTIDINE 20 MG TABLET PO SCH ×2 (09:07→21:35)
[2018-03-09] MEDS: FLUTICASONE/SALMETEROL DISKUS 250-50 MCG/DOSE IH SCH (09:07)
[2018-03-09] MEDS: TAMSULOSIN HCL 0.4 MG CAP.SR.24H PO SCH (17:32)
[2018-03-09] MEDS: OXYCODONE-ACETAMINOPHEN 5-325 MG TABLET PO PRN (17:34)
--- NOTE | 2018-03-09 18:32 | PDOC PROGRESS REPORT ---
Subjective Progress Note for:: 03/09/18 Subjective:: The patient is an 82-year-old gentleman who is well-known to the hospitalist service. He is admitted admitted has been admitted 3 times within the past couple of months for acute on chronic respiratory failure, COPD exacerbations and pneumonia. He was discharged recently to a skilled facility for subacute rehabilitation. He was getting ready to be discharged to home after completing 21 days of therapy. However he began to have difficulty breathing. He had no fever chills at the time of admission. In the emergency room he was found to be having evidence of COPD exacerbation and he was referred for admission. He ultimately was found to be have a large left pleural effusion and he underwent thoracentesis. He is currently being treated for a COPD exacerbation as well as underlying pneumonia. Sputum culture is positive for Acinetobacter. He has not been on appropriate antibiotic therapy. His antibiotic therapy was changed to IV meropenem yesterday. I was going to give him a couple of days of broad-spectrum appropriate parenteral therapy and then transition him to possibly p.o. Augmentin which it looks like his organism is sensitive to. Today when I saw the patient he is sitting up on the side of the bed. He is in agreement with this plan. He states he feels a little better after starting the meropenem yesterday. He denies fever chills. No chest pain, shortness of breath or heart palpitations. He states his cough is improving. He has had no nausea vomiting or diarrhea. He states his appetite is improving. No dysuria, frequency or hematuria Reason For Visit: PLEURAL EFFUSION,CHF WITH EXACERBATION Physical Exam Vital Signs: Temp Pulse Resp BP Pulse Ox 98.3 F 92 17 98/57 L 99 03/09/18 15:57 03/09/18 15:57 03/09/18 15:57 03/09/18 15:57 03/09/18 15:57 Intake & Output 03/08/18 03/09/18 03/10/18 06:59 06:59 06:59 Intake Total 952 664 7358 Output Total 950 650 Balance 390 42 620 Weight 71.7 kg 71.7 kg General appearance: PRESENT: no acute distress, well-developed, well-nourished Head exam: PRESENT: normocephalic Mouth exam: PRESENT: moist, tongue midline Respiratory exam: PRESENT: clear to auscultation alicia, decreased breath sounds Cardiovascular exam: PRESENT: irregular rhythm. ABSENT: diastolic murmur, rubs , systolic murmur GI/Abdominal exam: PRESENT: normal bowel sounds, soft. ABSENT: distended, guarding, mass, organolmegaly, rebound, tenderness Rectal exam: PRESENT: deferred Extremities exam: PRESENT: full ROM. ABSENT: calf tenderness, clubbing, pedal edema Neurological exam: PRESENT: alert, awake, oriented to person, oriented to place , oriented to time, oriented to situation, CN II-XII grossly intact. ABSENT: motor sensory deficit Psychiatric exam: PRESENT: appropriate affect, normal mood. ABSENT: homicidal ideation, suicidal ideation Skin exam: PRESENT: dry, intact, warm. ABSENT: cyanosis, rash Results Laboratory Results: 03/08/18 08:57 03/09/18 03:56 03/09/18 03:56 Sodium 142.4 Potassium 4.4 Chloride 102 Carbon Dioxide 35 H Anion Gap 5 BUN 41 H Creatinine 0.85 Est GFR ( Amer) > 60 Est GFR (Non-Af Amer) > 60 Glucose 90 Calcium 8.9 Magnesium 2.3 Impressions: Chest X-Ray 03/04/18 00:00 IMPRESSION: No pneumothorax. No interval changes are present. Thoracentesis Ultrasound 03/04/18 14:20 IMPRESSION: SUCCESSFUL THORACENTESIS USING ultrasound GUIDANCE. Assessment & Plan - Diagnosis (1) Acute on chronic respiratory failure with hypoxemia Is this a current diagnosis for this admission?: Yes Plan: The patient is improving. He is just about back to his baseline oxygen requirements. (2) Pneumonia Qualifiers: Aspiration pneumonia type: unspecified Laterality: right Lung location: upper lobe of lung Is this a current diagnosis for this admission?: Yes Plan: Sputum cultures positive for Acinetobacter. There is quite a bit of resistance to this organism. He has been on cefepime with only intermediate susceptibility. This is day #2 of treatment with meropenem. We will give him a couple of days of broad-spectrum antibiotics and then possibly de-escalate. His organism is sensitive to Unasyn. He should be able to be discharged on Augmentin. (3) Acute on chronic diastolic heart failure Is this a current diagnosis for this admission?: Yes Plan: He has been transitioned to oral Lasix at this point. His acute heart failure exacerbation has resolved (4) COPD with acute exacerbation Is this a current diagnosis for this admission?: Yes Plan: Continue p.o. prednisone (5) Pleural effusion Is this a current diagnosis for this admission?: Yes Plan: Stable. He is status post thoracentesis. (6) Atrial fibrillation Qualifiers: Atrial fibrillation type: chronic Qualified Code(s): I48.2 - Chronic atrial fibrillation Is this a current diagnosis for this admission?: Yes Plan: Currently rate controlled (7) Hyperglycemia Is this a current diagnosis for this admission?: Yes (8) Anemia Is this a current diagnosis for this admission?: Yes (9) Anxiety Is this a current diagnosis for this admission?: Yes (10) Hypernatremia Is this a current diagnosis for this admission?: Yes Plan: Resolved - Time Time Spent with patient: 25-34 minutes - Inpatient Certification Medical Necessity: Need for IV Antibiotics - Inpatient hospitalization remains necessary. I was planning on giving the patient 3 days of IV meropenem and then transitioning him to p.o. Augmentin for discharge. Hopefully he will be stable for discharge in the next 24-48 hours., Other
[2018-03-09] MEDS: FLUTICASONE NASAL SPRAY 50 MCG/SPRY 120 SPRAY/16 GM NASL SCH (21:34)
[2018-03-09] MEDS: ATORVASTATIN CALCIUM 80 MG TABLET PO SCH (21:35)
[2018-03-10] MEDS: FLUTICASONE/SALMETEROL DISKUS 250-50 MCG/DOSE IH SCH ×2 (00:03→10:09)
[2018-03-10] MEDS: IPRATROPIUM/ALBUTEROL 0.5-2.5 MG/3 ML AMPUL NEB SCH ×3 (02:22→13:47)
[2018-03-10] MEDS: MEROPENEM 1 GM in NORMAL SALINE 50 ML IV SCH ×2 (05:45→13:13)
[2018-03-10] MEDS: GABAPENTIN 300 MG CAPSULE PO SCH ×2 (05:45→13:13)
[2018-03-10] MEDS: METOPROLOL TARTRATE 25 MG TABLET PO SCH ×2 (05:45→13:14)
[2018-03-10 06:42] LABS: ABSOLUTE EOSINOPHILS # (AUTO) 0.5 10^3/uL (0.0-0.6); ABSOLUTE LYMPHOCYTES (AUTO) 3.7 10^3/uL (0.5-4.7); ABSOLUTE MONOCYTES (AUTO) 1.8 10^3/uL (0.1-1.4); BASOPHILS % (AUTO) 0.2 % (0-2); EOSINOPHILS % (AUTO) 3.8 % (0-6); HEMATOCRIT 29.4 % (37.9-51.0); HEMOGLOBIN 9.3 g/dL (13.5-17.0); LYMPHOCYTES % (AUTO) 30.6 % (13-45); MEAN CORPUSCULAR HGB CONC 31.8 g/dL (32.0-36.0); MEAN CORPUSCULAR VOLUME 79 fl (80-97); MONOCYTES % (AUTO) 14.8 % (3-13); PLATELET COUNT 366 10^3/uL (150-450); RED BLOOD COUNT 3.74 10^6/uL (4.35-5.55); RED CELL DISTRIBUTION WIDTH 19.5 % (11.5-14.0); SEGMENTED NEUTROPHILS % (AUTO) 50.6 % (42-78); TOTAL CELLS COUNTED % (AUTO) 100 %; WHITE BLOOD COUNT 11.9 10^3/uL (4.0-10.5)
[2018-03-10 07:04] LABS: BLOOD UREA NITROGEN 36 mg/dL (7-20); CALCIUM 8.8 mg/dL (8.4-10.2); CARBON DIOXIDE 35 mmol/L (22-30); CHLORIDE 103 mmol/L (98-107); GLUCOSE 86 mg/dL (75-110); POTASSIUM 4.4 mmol/L (3.6-5.0); SODIUM 141.6 mmol/L (137-145)
[2018-03-10 07:10] LABS: ANION GAP 4 (5-19)
[2018-03-10] MEDS: ASPIRIN 325 MG TABLET PO SCH (10:07)
[2018-03-10] MEDS: FAMOTIDINE 20 MG TABLET PO SCH (10:07)
[2018-03-10] MEDS: ENOXAPARIN SODIUM INJ 40 MG/0.4 ML DISP.SYRIN SUBCUT SCH (10:07)
[2018-03-10] MEDS: DOCUSATE SODIUM 100 MG CAPSULE PO SCH (10:07)
[2018-03-10] MEDS: DIGOXIN 0.125 MG TABLET PO SCH (10:08)
[2018-03-10] MEDS: FUROSEMIDE 40 MG TABLET PO SCH (10:09)
[2018-03-10 13:34] VITALS: BP 137/57
--- NOTE | 2018-03-10 13:43 | PDOC DISCHARGE SUMMARY ---
General - Admit/Disc Date/PCP Admission Date/Primary Care Provider: 03/06/18 13:52 KELLIE BASSETT Discharge Date: 11/09/18 - Discharge Diagnosis (1) Pneumonia Is this a current diagnosis for this admission?: Yes (2) COPD with acute exacerbation Is this a current diagnosis for this admission?: Yes (3) Pleural effusion Is this a current diagnosis for this admission?: Yes (4) Atrial fibrillation Is this a current diagnosis for this admission?: Yes (5) CAD (coronary artery disease) Is this a current diagnosis for this admission?: Yes - Additional Information Resuscitation Status: Do Not Resuscitate Discharge Diet: Cardiac Discharge Activity: Activity As Tolerated, Balance Activity w/Rest, Weigh Daily Home Medications: Albuterol Sulfate [Proair HFA Inhalation Aerosol 8.5 gm MDI] 1 puff IH Q4HP PRN 03/14/18 Atorvastatin Calcium [Lipitor 80 mg Tablet] 80 mg PO QHS 03/14/18 Budesonide/Formoterol Fumarate [Symbicort HFA 160-4.5 mcg Inhaler 6 gm] 2 puff IH Q12 03/14/18 Digoxin [Lanoxin 0.125 mg Tablet] 0.125 mg PO DAILY 03/14/18 History of Present Illness History of Present Illness: JEAN-PIERRE OLIVAREZ is a very pleasant but unfortunate 82 year old male patient with multiple comorbidities including hypertension, hyperlipidemia, atrial fibrillation, coronary artery disease status post coronary artery bypass graft and COPD.. Transferred from [facility] for shortness of breath. Of note patient has multiple admission to the hospital the last 2 months. On his chest x-ray patient found to have pneumonia and pleural effusion. Hospital Course Hospital Course: Patient has been managed with antibiotics and ultrasound-guided thoracentesis was done and about 450 mL of straw-colored fluid had been removed. Patient has underlying chronic shortness of breath because of his COPD but currently his shortness of breath seems relatively subsided. Vital signs are also within normal limits Physical Exam Vital Signs: Temp Pulse Resp BP Pulse Ox 97.9 F 83 20 137/57 H 98 03/10/18 13:31 03/10/18 13:31 03/10/18 13:31 03/10/18 13:31 03/10/18 13:31 Intake & Output 03/09/18 03/10/18 03/11/18 06:59 06:59 06:59 Intake Total 992 1622 Output Total 950 950 Balance 42 672 Weight 71.7 kg 71.6 kg General appearance: PRESENT: mild distress Head exam: PRESENT: atraumatic, normocephalic Respiratory exam: PRESENT: decreased breath sounds Cardiovascular exam: PRESENT: irregular rhythm Results Laboratory Results: 03/10/18 05:55 03/10/18 05:55 03/10/18 03/10/18 05:55 05:55 WBC 11.9 H RBC 3.74 L Hgb 9.3 L Hct 29.4 L MCV 79 L MCH 25.0 L MCHC 31.8 L RDW 19.5 H Plt Count 366 Seg Neutrophils % 50.6 Lymphocytes % 30.6 Monocytes % 14.8 H Eosinophils % 3.8 Basophils % 0.2 Absolute Neutrophils 6.0 Absolute Lymphocytes 3.7 Absolute Monocytes 1.8 H Absolute Eosinophils 0.5 Absolute Basophils 0.0 Sodium 141.6 Potassium 4.4 Chloride 103 Carbon Dioxide 35 H Anion Gap 4 L BUN 36 H Creatinine 0.80 Est GFR ( Amer) > 60 Est GFR (Non-Af Amer) > 60 Glucose 86 Calcium 8.8 Magnesium 2.4 H Impressions: Chest X-Ray 03/04/18 00:00 IMPRESSION: No pneumothorax. No interval changes are present. Thoracentesis Ultrasound 03/04/18 14:20 IMPRESSION: SUCCESSFUL THORACENTESIS USING ultrasound GUIDANCE. Qualifiers - * PATEINT BEING DISCHARGED WITH ANY OF THE FOLLOWING DIAGNOSIS?: No
== END 2018-03-10 14:54 | disposition home or self-care (01) | DRG 177 ==
LOC: ER 06:19 → EH 12:19 → 5 19:09 → OBSVTOIN 03-06 13:52
PROVIDERS: ADMIT Internal Medicine; ATTEND Internal Medicine
PROC: 0W9B3ZX Drainage of Left Pleural Cavity, Percutaneous Approach, Diagnostic (ICD-10-PCS; principal; 2018-03-04)
PROC: 0W993ZX Drainage of Right Pleural Cavity, Percutaneous Approach, Diagnostic (ICD-10-PCS; 2018-03-04)
PROC: 3E0F73Z Introduction of Anti-inflammatory into Respiratory Tract, Via Natural or Artificial Opening (ICD-10-PCS; 2018-03-06)
DX: J15.6 Pneumonia due to other Gram-negative bacteria (principal); I50.33 Acute on chronic diastolic (congestive) heart failure; J96.21 Acute and chronic respiratory failure with hypoxia; J44.1 Chronic obstructive pulmonary disease with (acute) exacerbation; J44.0 Chronic obstructive pulmonary disease with (acute) lower respiratory infection; J91.8 Pleural effusion in other conditions classified elsewhere; E87.0 Hyperosmolality and hypernatremia; I25.10 Atherosclerotic heart disease of native coronary artery without angina pectoris; I11.0 Hypertensive heart disease with heart failure; E78.5 Hyperlipidemia, unspecified; Z51.5 Encounter for palliative care; F41.9 Anxiety disorder, unspecified; I25.2 Old myocardial infarction; T38.0X5A Adverse effect of glucocorticoids and synthetic analogues, initial encounter; K21.9 Gastro-esophageal reflux disease without esophagitis; M19.90 Unspecified osteoarthritis, unspecified site; Z66 Do not resuscitate; F03.90 Unspecified dementia, unspecified severity, without behavioral disturbance, psychotic disturbance, mood disturbance, and anxiety; D72.829 Elevated white blood cell count, unspecified; R73.9 Hyperglycemia, unspecified; D47.3 Essential (hemorrhagic) thrombocythemia; J15.212 Pneumonia due to Methicillin resistant Staphylococcus aureus; Z79.899 Other long term (current) drug therapy; Z95.1 Presence of aortocoronary bypass graft; Z79.82 Long term (current) use of aspirin; Z85.828 Personal history of other malignant neoplasm of skin; Z90.49 Acquired absence of other specified parts of digestive tract; Z87.891 Personal history of nicotine dependence; Z82.5 Family history of asthma and other chronic lower respiratory diseases; Z79.51 Long term (current) use of inhaled steroids; Z88.8 Allergy status to other drugs, medicaments and biological substances; Z87.01 Personal history of pneumonia (recurrent); Z83.6 Family history of other diseases of the respiratory system; Z80.8 Family history of malignant neoplasm of other organs or systems; Z95.0 Presence of cardiac pacemaker; Z86.14 Personal history of Methicillin resistant Staphylococcus aureus infection
CPT/HCPCS: 32555; 36415; 71045; 80048; 80053; 80162; 81001; 82550; 82553; 82945; 83615; 83735; 83880; 84157; 84484; 85025; 85027; 85610; 87040; 87070; 87075; 87077; 87186; 87205; 88305; 89050; 93005; 93010; 94640; 94667; 94668; 94799; 96365; 96366; 96372; 96375; 96376; 99285; G0378; G8978-GP; G8979-GP; G8980-GP; J0692; J0696; J1650; J1940; J2185; J2920; J3370; J3490; J7512; J7620

== ENCOUNTER 2018-03-14 03:37 | Inpatient (IN) | payer MEDICARE, BC ==
[2018-03-14] MEDS ORDERED: DILTIAZEM HCL/D5W 125 MG/125 ML RTUINJ IV PRN (03:43)
[2018-03-14] MEDS ORDERED: FUROSEMIDE INJ/PF 20 MG/2 ML SDV IV ONE (03:43)
[2018-03-14] MEDS ORDERED: DILTIAZEM HCL INJ 25 MG/5 ML VIAL IV ONE (03:43)
--- NOTE | 2018-03-14 03:46 | ER Document Report ---
ED General - General Stated Complaint: RESPIRATORY DISTRESS Time Seen by Provider: 03/14/18 03:42 Notes: Patient is an 82-year-old male with a history of CHF [facility] from [facility] with difficulty breathing. He says he was recently released with the hospital similar thing. No chest pain. No fevers. No vomiting. He does have a history of atrial fibrillation. He is in A. fib with RVR at this time. He has had increased edema in his legs ever since he has been to the prison. Has no other complaints at this time. He refused breathing treatment in the ambulance. He refused any care from the paramedics other than oxygen. TRAVEL OUTSIDE OF THE [place] IN LAST 30 DAYS: No - Related Data Allergies/Adverse Reactions: tobramycin Adverse Reaction (Unknown, Verified 03/14/18 04:27) Past Medical History - Social History Smoking Status: Unknown if Ever Smoked Frequency of alcohol use: None Drug Abuse: None Family History: COPD, Malignancy - Brain tumor - Past Medical History Cardiac Medical History: Reports: Hx Atrial Fibrillation - Aspirin only due to epistaxis with systemic anticoagulation., Hx Coronary Artery Disease, Hx Heart Attack - 08/2009, Hx Hypercholesterolemia, Hx Hypertension Denies: Hx DVT, Hx Pulmonary Embolism Pulmonary Medical History: Reports: Hx COPD, Hx Pneumonia Denies: Hx Asthma, Hx Sleep Apnea Neurological Medical History: Denies: Hx Cerebrovascular Accident, Hx Seizures Endocrine Medical History: Denies: Hx Diabetes Mellitus Type 1, Hx Diabetes Mellitus Type 2, Hx Hyperthyroidism, Hx Hypothyroidism Renal/ Medical History: Denies: Hx Peritoneal Dialysis Malignancy Medical History: Reports Hx Skin Cancer GI Medical History: Reports: Hx Gastroesophageal Reflux Disease. Denies: Hx Cirrhosis, Hx Hepatitis, Hx Hiatal Hernia, Hx Ulcer Musculoskeltal Medical History: Reports Hx Arthritis, Reports Hx Musculoskeletal Trauma Psychiatric Medical History: Reports: Hx Anxiety, Hx Dementia Denies: Hx Depression Infectious Medical History: Reports: Hx MRSA. Denies: Hx C-Diff, Hx Hepatitis Past Surgical History: Reports: Hx Appendectomy, Hx Coronary Artery Bypass Graft , Hx Open Heart Surgery, Hx Orthopedic Surgery - back surgery, Hx Pacemaker - Immunizations Immunizations up to date: Yes Hx Diphtheria, Pertussis, Tetanus Vaccination: Yes Review of Systems - Review of Systems Notes: My Normal Review Basic REVIEW OF SYSTEMS: CONSTITUTIONAL : Denies fever, chills, or sweats. Denies recent illness. EENT: Denies eye, ear, throat, or mouth pain or symptoms. Denies nasal or sinus congestion. CARDIOVASCULAR: Denies chest pain. RESPIRATORY: Difficulty breathing. GASTROINTESTINAL: Denies abdominal pain. Denies nausea, vomiting, or diarrhea. Denies constipation. Last BM: GENITOURINARY: Denies difficulty urinating, painful urination, burning, frequency, or blood in urine. MUSCULOSKELETAL: Leg edema. SKIN: Denies rash or skin lesions. NEUROLOGICAL: Denies altered mental status or loss of consciousness. Denies headache. Denies weakness or paralysis or loss of use of either side. Denies problems with gait or speech. Denies sensory or motor loss. ALL OTHER SYSTEMS REVIEWED AND NEGATIVE. Physical Exam - Vital signs Vitals: Pulse Ox 79 L 03/14/18 03:41 - Notes Notes: General Appearance: Well nourished, alert, cooperative, moderate acute distress , no obvious discomfort. Vitals: reviewed, See vital signs table. Head: no swelling or tenderness to the head Eyes: PERRL, EOMI, Conjuctiva clear Mouth: No decreasd moisture Neck: Supple, no neck tenderness, Lungs: No wheezing, diffuse rales, No rhonci, moderate accessory muscle use, good air exchange bilaterally. Heart: Normal rate, Regular rythm, No murmur, no rub Abdomen: Normal BS, soft, No rigidity, No abdominal tenderness, No guarding, no rebound, Extremities: strength 5/5 in all extremities, good pulses in all extremities, no swelling or tenderness in the extremities, 2+ bilateral lower extremity edema. Skin: warm, dry, appropriate color, no rash Neuro: speech clear, oriented x 3, normal affect, responds appropriately to questions. Course - Re-evaluation Re-evalutation: 03/14/18 05:44 Patient's lung hernandez have cleared considerably since being placed on the BiPAP. His heart rate is now much improved. His heart was initially 150s and now it is in the 90s. He looks much more comfortable and speaking full sentences. Chest x-ray shows pulmonary edema plus possibly pneumonia. It is difficult for me to ascertain whether it is truly pneumonia being that she has had similar findings in the past. I will still cover him being that he was recently hospitalized and he has a white count of 29,000. I did speak with the hospitalist, Dr. Zapata, who agrees to admit the patient. - Vital Signs Vital signs: Temp Pulse Resp BP Pulse Ox 98.1 F 130 H 18 110/61 94 03/14/18 03:42 03/14/18 03:43 03/14/18 05:00 03/14/18 04:56 03/14/18 05:00 - Laboratory Result Diagrams: 03/14/18 03:50 03/14/18 03:50 Laboratory results interpreted by me: 03/14/18 03/14/18 03/14/18 03:50 03:50 03:50 WBC 29.6 H RBC 4.08 L Hgb 10.0 L Hct 32.7 L MCH 24.6 L MCHC 30.7 L RDW 19.7 H Seg Neuts % (Manual) 87 H Lymphocytes % (Manual) 3 L Abs Neuts (Manual) 26.6 H Abs Monocytes (Manual) 1.5 H Carbon Dioxide 34 H BUN 32 H AST 61 H NT-Pro-B Natriuret Pep 2040 H Total Protein 6.1 L Albumin 3.3 L - EKG Interpretation by Me Additional EKG results interpreted by me: 03/14/18 03:58 EKG is reviewed and interpreted by me. EKG shows A. fib with RVR with rate of [address] segment elevation or depression. No ischemic T-wave inversions. QRS duration is within normal range. QTc interval slightly prolonged. Discharge - Discharge Clinical Impression: Atrial fibrillation with rapid ventricular response, Pulmonary vascular congestion Pneumonia Qualifiers: Pneumonia type: due to unspecified organism Laterality: unspecified laterality Lung location: unspecified part of lung Qualified Code(s): J18.9 - Pneumonia, unspecified organism Condition: Stable Disposition: ADMITTED INPATIENT Admitting Provider: Hospitalist Unit Admitted: I[facility]U
[2018-03-14 04:03] LABS: HEMATOCRIT 32.7 % (37.9-51.0); MEAN CORPUSCULAR HEMOGLOBIN 24.6 pg (27.0-33.4); MEAN CORPUSCULAR HGB CONC 30.7 g/dL (32.0-36.0); MEAN CORPUSCULAR VOLUME 80 fl (80-97); RED BLOOD COUNT 4.08 10^6/uL (4.35-5.55); RED CELL DISTRIBUTION WIDTH 19.7 % (11.5-14.0); WHITE BLOOD COUNT 29.6 10^3/uL (4.0-10.5)
--- NOTE | 2018-03-14 04:10 | RADIOLOGY REPORT (SQ) ---
EXAM DESCRIPTION: CHEST SINGLE VIEW CLINICAL HISTORY: 82 years Male, dyspnea COMPARISON: 4.6.18 NUMBER OF VIEWS/TECHNIQUE: 1/AP LIMITATIONS: None. FINDINGS: Moderate mixed airspace and interstitial opacity with lower predominance, right more than left, moderate right basilar effusion, normal cardiac silhouette, atherosclerosis, sternotomy, and left cardiac stimulation device and leads. IMPRESSION: Interval worsening includes moderate right lower lobar opacity-effusion.
[2018-03-14 04:16] LABS: ALANINE AMINOTRANSFERASE 62 U/L (21-72); ALBUMIN 3.3 g/dL (3.5-5.0); ALKALINE PHOSPHATASE 114 U/L (38-126); ANION GAP 6 (5-19); ASPARTATE AMINO TRANSFERASE 61 U/L (17-59); BILIRUBIN,DIRECT 0.1 mg/dL (0.0-0.4); BILIRUBIN,TOTAL 0.4 mg/dL (0.2-1.3); BLOOD UREA NITROGEN 32 mg/dL (7-20); CALCIUM 8.8 mg/dL (8.4-10.2); CARBON DIOXIDE 34 mmol/L (22-30); CHLORIDE 104 mmol/L (98-107); GLUCOSE 98 mg/dL (75-110); SODIUM 143.7 mmol/L (137-145); TOTAL PROTEIN 6.1 g/dL (6.3-8.2)
[2018-03-14 04:24] LABS: ABSOLUTE LYMPHOCYTES# (MANUAL) 0.9 10^3/uL (0.5-4.7); ABSOLUTE MONOCYTES # (MANUAL) 1.5 10^3/uL (0.1-1.4); ABSOLUTE NEUTROPHILS# (MANUAL) 26.6 10^3/uL (1.7-8.2); BAND NEUTROPHILS % (MANUAL) 3 % (3-5); BASOPHILS % (MANUAL) 0 % (0-2); EOSINOPHILS % (MANUAL) 2 % (0-6); LYMPHOCYTES % (MANUAL) 3 % (13-45); MONOCYTES % (MANUAL) 5 % (3-13); SEGMENTED NEUTROPHILS % (MAN) 87 % (42-78); TOTAL CELLS COUNTED 100
[2018-03-14 04:28] LABS: ANISOCYTOSIS 2+; BURR CELLS SLIGHT; HYPOCHROMASIA 2+; OVALOCYTES SLIGHT; PLATELET CLUMPS PRESENT; PLATELET COMMENT ADEQUATE; POIKILOCYTOSIS 1+
[2018-03-14 04:29] LABS: TOXIC GRANULATION 1+
[2018-03-14 04:30] LABS: PLATELET COUNT 334 10^3/uL (150-450)
[2018-03-14 04:51] LABS: TROPONIN I 0.041 ng/mL
[2018-03-14 04:57] LABS: INTERNATIONAL RATION (INR) 0.98; PROTHROMBIN TIME 13.5 SEC (11.4-15.4)
[2018-03-14] MEDS ORDERED: VANCOMYCIN HCL INJ 1000 MG VIAL IV ONE (05:20)
[2018-03-14] MEDS ORDERED: PIPERACILLIN/TAZOBACTAM 3.375 GM VIAL IV ONE (05:20)
[2018-03-14] MEDS ORDERED: ACETAMINOPHEN 325 MG TABLET PO PRN (05:43)
[2018-03-14] MEDS ORDERED: CHLORPHENIRAMINE MALEATE 4 MG TABLET PO ONE ×2 (05:44→13:00)
[2018-03-14] MEDS ORDERED: GUAIFENESIN SYRP 200 MG/10 ML UDC PO PRN (05:44)
[2018-03-14] MEDS ORDERED: DIGOXIN 0.125 MG TABLET PO ONE (06:00)
[2018-03-14] MEDS ORDERED: VANCOMYCIN HCL 0 MG in DEXTROSE 5%-WATER 250 ML IV NR (06:00)
[2018-03-14] MEDS ORDERED: DILTIAZEM HCL 30 MG TABLET PO SCH (06:00)
--- NOTE | 2018-03-14 06:18 | PDOC H&P ---
History of Present Illness Admission Date/PCP: KELLIE BASSETT Patient complains of: Shortness of breath History of Present Illness: JEAN-PIERRE OLIVAREZ is a 82 year old male with a past medical history of atrial fibrillation, COPD, chronic bronchitis, recurrent MRSA pneumonia, anxiety, coronary artery disease status post bypass grafting with permanent pacemaker. Patient is chronically ill with admission at [facility] 28 days of the past 2 months. Patient discharged to halfway 4 days ago returning to the emergency room with shortness of breath found to be in A. fib with RVR in the 140s and a leukocytosis of 29,000 and left-sided infiltrate on chest x-ray. He started on IV Cardizem, BiPAP, vancomycin and referred to the hospitalist for admission. Patient denies chest pain nausea vomiting diaphoresis. Past Medical History Cardiac Medical History: Reports: Atrial Fibrillation - Aspirin only due to epistaxis with systemic anticoagulation., Coronary Artery Disease, Myocardial Infarction - 08/2009, Hyperlipidema, Hypertension Denies: DVT, Pulmonary Embolism Pulmonary Medical History: Reports: Bronchitis, Chronic Obstructive Pulmonary Disease (COPD), Pneumonia Denies: Asthma, Sleep Apnea Neurological Medical History: Denies: Seizures Endocrine Medical History: Denies: Diabetes Mellitus Type 1, Diabetes Mellitus Type 2, Hyperthyroidism, Hypothyroidism Malignancy Medical History: Reports: Skin Cancer GI Medical History: Reports: Gastroesophageal Reflux Disease Denies: Cirrhosis, Hepatitis, Hiatal Hernia Musculoskeltal Medical History: Reports: Arthritis Psychiatric Medical History: Reports: Dementia Denies: Depression Hematology: Denies: Anemia, Sickle Cell Disease Infectious Medical History: Reports: Methicillin-Resistant Staph Aureus Denies: Clostridium Difficile Past Surgical History Past Surgical History: Reports: Appendectomy, Coronary Artery Bypass Graft, Orthopedic Surgery - back surgery, Pacemaker Social History Information Source: [facility] Records Lives with: Skilled Nursing Smoking Status: Unknown if Ever Smoked Frequency of Alcohol Use: None Hx Recreational Drug Use: No Drugs: None Hx Prescription Drug Abuse: No - Advance Directive Resuscitation Status: Do Not Resuscitate Family History Family History: COPD, Malignancy - Brain tumor Parental Family History Reviewed: Yes Children Family History Reviewed: Yes Sibling(s) Family History Reviewed.: Yes Medication/Allergy Home Medications: Albuterol Sulfate [Albuterol Sulfate 2.5mg/3 mL] 1 vial IH RTQ4HP PRN 01/23/18 Aspirin [Aspirin 325 mg Tablet] 325 mg PO DAILY 01/23/18 Atorvastatin Calcium [Lipitor 80 mg Tablet] 80 mg PO QHS 01/23/18 Fluticasone/Salmeterol [Advair 250-50 Diskus 14 Dose/Diskus] 1 inh IH Q12 Gabapentin [Neurontin] 600 mg PO Q8 01/23/18 Ranitidine HCl [Zantac 150 mg Tablet] 150 mg PO BIDACBS 01/23/18 Tamsulosin HCl [Flomax 0.4 mg Cap.sr] 0.4 mg PO DAILY 01/23/18 Tiotropium [place] [Spiriva Handihaler 5 Cap/Kit (18 Mcg/Cap)] 1 cap IH DAILY Acetaminophen [Tylenol 325 mg Tablet] 650 mg PO Q4HP PRN tablet 02/02/18 Digoxin [Lanoxin 0.125 mg Tablet] 0.125 mg PO DAILY tablet 02/02/18 Diltiazem HCl [Cardizem 30 mg Tablet] 30 mg PO Q8 tablet 02/02/18 Fluticasone Propionate [Flonase Nasal [place] 50 Mcg/[place] 16 gm] 2 spray NASL QHS spray.pump 02/02/18 Hydrocodone/Acetaminophen [[place] 5-325 mg Tablet] 1 tab PO Q6HP PRN #5 tablet Hydrocortisone Acetate [Anusol Hc 25 mg Supp.rect] 25 mg IN BIDP PRN supp.rect 02/02/18 Levalbuterol HCl [Xopenex Neb 0.63 mg/3 ml Ampul] 0.63 mg NEB RTQ4 vial.neb 06/15 Furosemide [Lasix 40 mg Tablet] 40 mg PO QAM 03/03/18 Ipratropium/Albuterol Sulfate [Duoneb 3 ml Ampul] 3 ml NEB RTQ6 03/03/18 Amox Tr/Potassium Clavulanate [Augmentin 500-125 Tablet] 1 each PO BID #14 tablet 03/10/18 Budesonide/Formoterol Fumarate [Symbicort 160-4.5 Mcg Inhaler] 10.2 gm IH BID 30 Days #1 hfa.aer.ad 03/10/18 Allergies/Adverse Reactions: tobramycin Adverse Reaction (Unknown, Verified 03/14/18 04:27) Review of Systems ROS unobtainable: Other - BiPAP with shortness of breath Physical Exam Vital Signs: Temp Pulse Resp BP Pulse Ox 98.1 F 130 H 18 110/61 94 03/14/18 03:42 03/14/18 03:43 03/14/18 05:00 03/14/18 04:56 03/14/18 05:00 Intake & Output 03/12/18 03/13/18 03/14/18 11:59 11:59 11:59 Weight 71.6 kg General appearance: PRESENT: disheveled, severe distress, thin Head exam: PRESENT: atraumatic, normocephalic Eye exam: PRESENT: conjunctiva pink, EOMI, PERRLA. ABSENT: scleral icterus Ear exam: PRESENT: normal external ear exam Mouth exam: PRESENT: moist, tongue midline Neck exam: ABSENT: carotid bruit, JVD, lymphadenopathy, thyromegaly Respiratory exam: PRESENT: accessory muscle use, crackles, decreased breath sounds, prolonged expiratory phas, rales, retraction, rhonchi, tachypnea. ABSENT: symmetrical Cardiovascular exam: PRESENT: gallop, irregular rhythm, tachycardia Pulses: PRESENT: normal dorsalis pedis pul Vascular exam: PRESENT: normal capillary refill GI/Abdominal exam: PRESENT: normal bowel sounds, soft. ABSENT: distended, guarding, mass, organolmegaly, rebound, tenderness Rectal exam: PRESENT: deferred Extremities exam: PRESENT: full ROM, +2 edema. ABSENT: calf tenderness, clubbing, pedal edema Neurological exam: PRESENT: alert, awake, oriented to person, oriented to situation, CN II-XII grossly intact. ABSENT: motor sensory deficit Psychiatric exam: PRESENT: anxious Skin exam: PRESENT: dry, intact, warm. ABSENT: cyanosis, rash Results Laboratory Results: 03/14/18 03:50 03/14/18 03:50 03/14/18 03/14/18 03:50 03:50 WBC 29.6 H RBC 4.08 L Hgb 10.0 L Hct 32.7 L MCV 80 MCH 24.6 L MCHC 30.7 L RDW 19.7 H Plt Count 334 Seg Neutrophils % Not Reportable Lymphocytes % Not Reportable Monocytes % Not Reportable Eosinophils % Not Reportable Basophils % Not Reportable Absolute Neutrophils Not Reportable Absolute Lymphocytes Not Reportable Absolute Monocytes Not Reportable Absolute Eosinophils Not Reportable Absolute Basophils Not Reportable Sodium 143.7 Potassium 5.0 Chloride 104 Carbon Dioxide 34 H Anion Gap 6 BUN 32 H Creatinine 0.81 Est GFR ( Amer) > 60 Est GFR (Non-Af Amer) > 60 Glucose 98 Calcium 8.8 Magnesium 2.1 Total Bilirubin 0.4 AST 61 H ALT 62 Alkaline Phosphatase 114 Total Protein 6.1 L Albumin 3.3 L 03/14/18 03:50 Troponin I 0.041 NT-Pro-B Natriuret Pep 2040 H Impressions: Chest X-Ray 03/14/18 03:43 IMPRESSION: Interval worsening includes moderate right lower lobar opacity-effusion. Assessment & Plan - Diagnosis (1) Atrial fibrillation with rapid ventricular response Is this a current diagnosis for this admission?: Yes Plan: IV Cardizem initiated, increase p.o. to 60 mg every 8 hours. Avoid albuterol in favor of Xopenex. (2) Pneumonia Qualifiers: Pneumonia type: due to unspecified organism Laterality: unspecified laterality Lung location: unspecified part of lung Qualified Code(s): J18.9 - Pneumonia, unspecified organism Is this a current diagnosis for this admission?: Yes Plan: Recurrent pneumonia recent hospitalization coverage with vancomycin and Levaquin. Follow-up CBC blood and sputum culture (3) Pulmonary vascular congestion Is this a current diagnosis for this admission?: Yes Plan: Secondary to #1 and 2, BiPAP (4) COPD with acute exacerbation Is this a current diagnosis for this admission?: Yes Plan: Incentive spirometry, flutter valve, Flonase, Xopenex with Atrovent. (5) Do not resuscitate Is this a current diagnosis for this admission?: Yes Plan: Poor overall prognosis given recurrence and underlying debility, hospice consult ordered - Time Time Spent: 50 to 70 Minutes - Inpatient Certification Medical Necessity: Need Close Monitoring Due to Risk of Patient Decompensation
[2018-03-14] MEDS: GABAPENTIN 300 MG CAPSULE PO SCH ×3 (07:49→21:21)
[2018-03-14] MEDS ORDERED: VANCOMYCIN HCL 1,000 MG in DEXTROSE 5%-WATER 250 ML IV ONE (08:00)
[2018-03-14] MEDS ORDERED: FUROSEMIDE 40 MG TABLET PO SCH (08:00)
[2018-03-14] MEDS: IPRATROPIUM BROMIDE 0.02% NEB 0.5 MG/2.5 ML AMPUL NEB SCH ×3 (08:09→20:11)
[2018-03-14] MEDS: LEVALBUTEROL HCL NEB 1.25 MG/3 ML AMPUL NEB SCH ×3 (08:09→20:11)
[2018-03-14] MEDS ORDERED: FUROSEMIDE INJ/PF 40 MG/4 ML SDV IV STA (09:11)
[2018-03-14] MEDS ORDERED: FLUTICASONE/SALMETEROL DISKUS 250-50 MCG/DOSE IH SCH (10:00)
[2018-03-14] MEDS: TAMSULOSIN HCL 0.4 MG CAP.SR.24H PO SCH (10:50)
[2018-03-14] MEDS: ASPIRIN 325 MG TABLET PO SCH (10:50)
[2018-03-14] MEDS: LEVOFLOXACIN 750 MG/D5W RTU 750 MG/150 ML RTUPB IV SCH (10:50)
[2018-03-14] MEDS: FLUTICASONE NASAL SPRAY 50 MCG/SPRY 120 SPRAY/16 GM NASL SCH ×2 (10:53→21:21)
[2018-03-14] MEDS: DILTIAZEM HCL 60 MG TABLET PO SCH ×2 (12:16→21:21)
[2018-03-14] MEDS: HEPARIN SOD (PORCINE) 5,000 UNIT/ML 1 ML SYRINGE SUBCUT SCH ×2 (13:36→21:20)
[2018-03-14] MEDS: OXYCODONE-ACETAMINOPHEN 5-325 MG TABLET PO PRN ×2 (13:41→20:13)
[2018-03-14 15:11] LABS: CREATINE KINASE MB 0.86 ng/mL (<4.55)
--- NOTE | 2018-03-14 15:12 | EKG REPORT ---
SEVERITY:- ABNORMAL ECG - ATRIAL FIBRILLATION WITH RAPID V-RATE LEFT AXIS DEVIATION REPOLARIZATION ABNORMALITY, PROB RATE RELATED : Confirmed by: Martha Mccall 14-Mar-2018 15:11:39
[2018-03-14 15:17] LABS: TROPONIN I 0.18 ng/mL
--- NOTE | 2018-03-14 16:21 | PDOC PROGRESS REPORT ---
Subjective Progress Note for:: 03/14/18 Subjective:: Mr. Amaya is a very pleasant unfortunate 82 years old male patient with recurrent admission to this hospital for the last 2 months this to be brought from long-term with chief complaint of shortness of breath. His initial evaluation revealed leukocytosis of 29,000 and chest x-ray right lower lobe consolidation compatible with pneumonia. Patient also running fever. When I see him at ED patient is propped up in bed and is in mild to moderate respiratory distress with labored breathing. Reason For Visit: PNEUMONIA, AFIB CHF Physical Exam Vital Signs: Temp Pulse Resp BP Pulse Ox 98.7 F 95 14 94/33 L 99 03/14/18 11:55 03/14/18 14:06 03/14/18 14:06 03/14/18 13:36 03/14/18 14:06 Pulse Oximeter Continuous Start: 03/14/18 05: 44 Freq: RTQ4 Status: Active Document 03/14/18 12:45 HCR (Rec: 03/14/18 13:38 HCR [email or web address]) Pulse Oximetry Assessment Oxygen Saturation (92-100) 98 Oxygen Flow Rate (L/min) 2.5 Equipment Usage Initial Set Up Continuous Pulse Oximeter 24 Hour Charge Charge Now Continuous SpO2 Machine # 2 General appearance: PRESENT: no acute distress, well-developed, well-nourished, other - Moderate respiratory distress Head exam: PRESENT: atraumatic, normocephalic Eye exam: PRESENT: conjunctiva pink, EOMI, PERRLA. ABSENT: scleral icterus Ear exam: PRESENT: normal external ear exam Mouth exam: PRESENT: moist, tongue midline Neck exam: ABSENT: carotid bruit, JVD, lymphadenopathy, thyromegaly Respiratory exam: PRESENT: decreased breath sounds - Bilaterally with crackles. ABSENT: rales, rhonchi, wheezes Cardiovascular exam: PRESENT: irregular rhythm, RRR, tachycardia. ABSENT: diastolic murmur, rubs, systolic murmur Pulses: PRESENT: normal dorsalis pedis pul Vascular exam: PRESENT: normal capillary refill GI/Abdominal exam: PRESENT: normal bowel sounds, soft. ABSENT: distended, guarding, mass, organolmegaly, rebound, tenderness Rectal exam: PRESENT: deferred Extremities exam: PRESENT: full ROM, pedal edema, +2 edema. ABSENT: calf tenderness, clubbing Neurological exam: PRESENT: alert, awake, oriented to person, oriented to place , oriented to time, oriented to situation, CN II-XII grossly intact. ABSENT: motor sensory deficit Psychiatric exam: PRESENT: appropriate affect, normal mood. ABSENT: homicidal ideation, suicidal ideation Skin exam: PRESENT: dry, intact, warm. ABSENT: cyanosis, rash Results Laboratory Results: 03/14/18 09:44 Lactic Acid 1.9 03/14/18 03/14/18 14:28 14:28 Creatine Kinase 34 L CK-MB (CK-2) 0.86 Troponin I 0.180 Impressions: Chest X-Ray 03/14/18 03:43 IMPRESSION: Interval worsening includes moderate right lower lobar opacity-effusion. Assessment & Plan - Diagnosis (1) Sepsis Qualifiers: Sepsis type: sepsis due to unspecified organism Qualified Code(s): A41.9 - Sepsis, unspecified organism Is this a current diagnosis for this admission?: Yes Plan: Patient has fever leukocytosis tachycardia and ongoing involvement namely the lungs. Patient has been on cefepime and vancomycin. CBC and BMP in a.m. (2) Healthcare-associated pneumonia Is this a current diagnosis for this admission?: Yes Plan: Patient has been in the long-term frequently admitted to hospital so patient qualifies for healthcare associated pneumonia. Continue cefepime and Vanco. CBC, lactic acid, sputum for culture. (3) Atrial fibrillation with RVR Is this a current diagnosis for this admission?: Yes Plan: Patient has been on Cardizem drip currently his heart rate is about 80 and the Cardizem drip discontinued and patient started on oral Cardizem. (4) Coronary artery disease Is this a current diagnosis for this admission?: Yes Plan: Continue home medications. (5) COPD (chronic obstructive pulmonary disease) Is this a current diagnosis for this admission?: Yes Plan: Continue as needed DuoNeb. - Time Time Spent with patient: 35 or more minutes
[2018-03-14] MEDS: VANCOMYCIN HCL 750 MG in DEXTROSE 5%-WATER 250 ML IV SCH (20:26)
[2018-03-14] MEDS: ATORVASTATIN CALCIUM 80 MG TABLET PO SCH (21:21)
[2018-03-14] MEDS ORDERED: NA PHOS,M-B/NA PHOS,DI-BA (ADULT) 133 ML ENEMA PR PRN (21:52)
[2018-03-14] MEDS ORDERED: DOCUSATE SODIUM 100 MG CAPSULE PO ONE (22:00)
[2018-03-14 22:04] LABS: CREATINE KINASE MB 1.13 ng/mL (<4.55)
[2018-03-14 22:09] LABS: TROPONIN I 0.123 ng/mL
[2018-03-15] MEDS: LEVALBUTEROL HCL NEB 1.25 MG/3 ML AMPUL NEB SCH ×3 (01:41→14:27)
[2018-03-15] MEDS: IPRATROPIUM BROMIDE 0.02% NEB 0.5 MG/2.5 ML AMPUL NEB SCH ×3 (01:41→14:27)
[2018-03-15 05:20] LABS: ABSOLUTE BASOPHILS # (AUTO) 0.1 10^3/uL (0.0-0.2); ABSOLUTE EOSINOPHILS # (AUTO) 0.5 10^3/uL (0.0-0.6); ABSOLUTE LYMPHOCYTES (AUTO) 3.2 10^3/uL (0.5-4.7); ABSOLUTE NEUT (AUTO) 9.5 10^3/uL (1.7-8.2); BASOPHILS % (AUTO) 0.4 % (0-2); EOSINOPHILS % (AUTO) 3.2 % (0-6); HEMATOCRIT 27.9 % (37.9-51.0); HEMOGLOBIN 8.8 g/dL (13.5-17.0); LYMPHOCYTES % (AUTO) 21.2 % (13-45); MEAN CORPUSCULAR HEMOGLOBIN 25.2 pg (27.0-33.4); MEAN CORPUSCULAR HGB CONC 31.6 g/dL (32.0-36.0); MEAN CORPUSCULAR VOLUME 80 fl (80-97); MONOCYTES % (AUTO) 13.1 % (3-13); PLATELET COUNT 230 10^3/uL (150-450); RED BLOOD COUNT 3.51 10^6/uL (4.35-5.55); RED CELL DISTRIBUTION WIDTH 19.6 % (11.5-14.0); SEGMENTED NEUTROPHILS % (AUTO) 62.1 % (42-78); TOTAL CELLS COUNTED % (AUTO) 100 %; WHITE BLOOD COUNT 15.2 10^3/uL (4.0-10.5)
[2018-03-15] MEDS: DILTIAZEM HCL 60 MG TABLET PO SCH ×3 (05:31→21:15)
[2018-03-15] MEDS: HEPARIN SOD (PORCINE) 5,000 UNIT/ML 1 ML SYRINGE SUBCUT SCH ×3 (05:31→21:15)
[2018-03-15] MEDS: GABAPENTIN 300 MG CAPSULE PO SCH ×3 (05:32→21:15)
[2018-03-15 05:38] LABS: ALANINE AMINOTRANSFERASE 47 U/L (21-72); ALBUMIN 2.8 g/dL (3.5-5.0); ALKALINE PHOSPHATASE 89 U/L (38-126); ANION GAP 5 (5-19); ASPARTATE AMINO TRANSFERASE 32 U/L (17-59); BILIRUBIN,DIRECT 0.3 mg/dL (0.0-0.4); BILIRUBIN,TOTAL 0.4 mg/dL (0.2-1.3); BLOOD UREA NITROGEN 33 mg/dL (7-20); CALCIUM 8.7 mg/dL (8.4-10.2); CARBON DIOXIDE 34 mmol/L (22-30); CHLORIDE 101 mmol/L (98-107); GLUCOSE 96 mg/dL (75-110); POTASSIUM 4.5 mmol/L (3.6-5.0); SODIUM 139.7 mmol/L (137-145); TOTAL PROTEIN 5.7 g/dL (6.3-8.2)
[2018-03-15] MEDS: VANCOMYCIN HCL 750 MG in DEXTROSE 5%-WATER 250 ML IV SCH ×2 (08:42→20:23)
[2018-03-15] MEDS: LEVOFLOXACIN 750 MG/D5W RTU 750 MG/150 ML RTUPB IV SCH (10:09)
[2018-03-15] MEDS: DIGOXIN 0.125 MG TABLET PO SCH (10:10)
[2018-03-15] MEDS: TAMSULOSIN HCL 0.4 MG CAP.SR.24H PO SCH (10:10)
[2018-03-15] MEDS: DOCUSATE SODIUM 100 MG CAPSULE PO SCH ×2 (10:11→21:15)
[2018-03-15] MEDS: ASPIRIN 325 MG TABLET PO SCH (10:11)
[2018-03-15] MEDS: FLUTICASONE NASAL SPRAY 50 MCG/SPRY 120 SPRAY/16 GM NASL SCH ×2 (10:12→21:15)
[2018-03-15] MEDS: OXYCODONE-ACETAMINOPHEN 5-325 MG TABLET PO PRN (13:51)
[2018-03-15] MEDS ORDERED: PIPERACILLIN/TAZOBACTAM 3.375 GM VIAL IV SCH (15:00)
[2018-03-15] MEDS ORDERED: METHYLPREDNISOLONE INJ 125 MG/2 ML SDV IV ONE (15:02)
[2018-03-15] MEDS ORDERED: IPRATROPIUM/ALBUTEROL 0.5-2.5 MG/3 ML AMPUL NEB PRN (15:17)
--- NOTE | 2018-03-15 15:19 | PDOC PROGRESS REPORT ---
Subjective Progress Note for:: 03/15/18 Subjective:: Reports she feels better currently. States that he initially felt better after discharge but declined rapidly. Reason For Visit: PNEUMONIA, AFIB CHF Physical Exam Vital Signs: Temp Pulse Resp BP Pulse Ox 98.1 F 79 18 101/53 L 100 03/15/18 12:20 03/15/18 14:27 03/15/18 14:27 03/15/18 12:20 03/15/18 14:27 Pulse Oximeter Continuous Start: 03/14/18 05: 44 Freq: RTQ4 Status: Active Document 03/15/18 11:55 HCR (Rec: 03/15/18 12:34 HCR [email or web address]) Pulse Oximetry Assessment Oxygen Saturation (92-100) 100 Oxygen Flow Rate (L/min) 30 Oxygen Delivery Method Bi-pap Equipment Usage Equipment in Use Continuous SpO2 Machine # 2 Intake & Output 03/14/18 03/15/18 03/16/18 06:59 06:59 06:59 Intake Total 1864 449 Output Total 800 500 Balance 1064 -51 Weight 72.7 kg General appearance: PRESENT: no acute distress GI/Abdominal exam: PRESENT: soft Extremities exam: ABSENT: +1 edema Neurological exam: PRESENT: alert Psychiatric exam: PRESENT: normal mood Skin exam: PRESENT: warm Results Laboratory Results: 03/15/18 04:55 03/15/18 04:55 03/15/18 03/15/18 04:55 04:55 WBC 15.2 H RBC 3.51 L Hgb 8.8 L Hct 27.9 L MCV 80 MCH 25.2 L MCHC 31.6 L RDW 19.6 H Plt Count 230 Seg Neutrophils % 62.1 Lymphocytes % 21.2 Monocytes % 13.1 H Eosinophils % 3.2 Basophils % 0.4 Absolute Neutrophils 9.5 H Absolute Lymphocytes 3.2 Absolute Monocytes 2.0 H Absolute Eosinophils 0.5 Absolute Basophils 0.1 Sodium 139.7 Potassium 4.5 Chloride 101 Carbon Dioxide 34 H Anion Gap 5 BUN 33 H Creatinine 1.05 Est GFR ( Amer) > 60 Est GFR (Non-Af Amer) > 60 Glucose 96 Calcium 8.7 Total Bilirubin 0.4 AST 32 ALT 47 Alkaline Phosphatase 89 Total Protein 5.7 L Albumin 2.8 L 03/14/18 03/14/18 03/14/18 14:28 14:28 21:20 Creatine Kinase 34 L 44 L CK-MB (CK-2) 0.86 Troponin I 0.180 03/14/18 21:20 Creatine Kinase CK-MB (CK-2) 1.13 Troponin I 0.123 Impressions: Chest X-Ray 03/14/18 03:43 IMPRESSION: Interval worsening includes moderate right lower lobar opacity-effusion. Status: Image reviewed by me - Chest x-ray shows significant underlying COPD with progressive right lower infiltrate Assessment & Plan - Diagnosis (1) Healthcare-associated pneumonia Is this a current diagnosis for this admission?: Yes Plan: Continue vancomycin, change Levaquin to Zosyn because of his history of Pseudomonas and Acinitobacter (2) Acute on chronic diastolic heart failure Is this a current diagnosis for this admission?: Yes Plan: Continue present management for now. Blood pressure is marginal. I would expect that he would diuresis some with respiratory improvement and better rate control (3) Acute on chronic respiratory failure with hypoxemia Is this a current diagnosis for this admission?: Yes (4) Anemia Qualifiers: Anemia type: unspecified type Qualified Code(s): D64.9 - Anemia, unspecified Is this a current diagnosis for this admission?: Yes Plan: We will send off iron studies. No need for transfusion currently (5) Bronchiectasis Qualifiers: Bronchiectasis type: with acute exacerbation Qualified Code(s): J47.1 - Bronchiectasis with (acute) exacerbation Is this a current diagnosis for this admission?: Yes (6) COPD with acute exacerbation Is this a current diagnosis for this admission?: Yes Plan: Nebulizers, steroids, aggressive pulmonary toilet. (7) Atrial fibrillation Qualifiers: Atrial fibrillation type: chronic Qualified Code(s): I48.2 - Chronic atrial fibrillation Is this a current diagnosis for this admission?: Yes Plan: Rate controlled (8) HLD (hyperlipidemia) Qualifiers: Hyperlipidemia type: unspecified Qualified Code(s): E78.5 - Hyperlipidemia , unspecified Is this a current diagnosis for this admission?: Yes Plan: Continue home medication
[2018-03-15 16:00] LABS: ALBUMIN 2.7 g/dL (3.5-5.0); ANION GAP 6 (5-19); BLOOD UREA NITROGEN 30 mg/dL (7-20); CALCIUM 8.5 mg/dL (8.4-10.2); CARBON DIOXIDE 32 mmol/L (22-30); CHLORIDE 100 mmol/L (98-107); GLUCOSE 97 mg/dL (75-110); PHOSPHORUS 3.7 mg/dL (2.5-4.5); POTASSIUM 5.1 mmol/L (3.6-5.0); SODIUM 137.8 mmol/L (137-145)
[2018-03-15 16:38] LABS: ABSOLUTE RETICS # 0.027 10^6/uL (0.028-0.122); RETICULOCYTE COUNT (AUTO) 0.78 % (0.66-2.85)
[2018-03-15] MEDS: PIPERACILLIN SODIUM/TAZOBACTAM 3.375 GM in NORMAL SALINE 100 ML IV SCH ×2 (17:18→22:59)
[2018-03-15] MEDS ORDERED: LORAZEPAM 1 MG TABLET PO PRN (18:21)
[2018-03-15] MEDS: IPRATROPIUM/ALBUTEROL 0.5-2.5 MG/3 ML AMPUL NEB SCH (20:08)
[2018-03-15] MEDS: MAG HYDROX/AL HYDROX/SIMETH SUSP 30 ML UDCUP PO PRN (21:15)
[2018-03-15] MEDS: ATORVASTATIN CALCIUM 80 MG TABLET PO SCH (21:15)
[2018-03-15] MEDS: METHYLPREDNISOLONE INJ 40 MG/1 ML SDV IV SCH (21:15)
[2018-03-15] MEDS: BUDESONIDE/FORMOTEROL 160-4.5 MCG 60 PUFF/6 GM MDI IH SCH (21:15)
[2018-03-16] MEDS: DILTIAZEM HCL 60 MG TABLET PO SCH ×3 (05:06→22:25)
[2018-03-16] MEDS: METHYLPREDNISOLONE INJ 40 MG/1 ML SDV IV SCH (05:06)
[2018-03-16] MEDS: GABAPENTIN 300 MG CAPSULE PO SCH ×3 (05:06→22:25)
[2018-03-16] MEDS: HEPARIN SOD (PORCINE) 5,000 UNIT/ML 1 ML SYRINGE SUBCUT SCH ×3 (05:06→22:25)
[2018-03-16] MEDS: PIPERACILLIN SODIUM/TAZOBACTAM 3.375 GM in NORMAL SALINE 100 ML IV SCH ×3 (05:06→18:21)
[2018-03-16 07:57] LABS: ABSOLUTE LYMPHOCYTES (AUTO) 1.1 10^3/uL (0.5-4.7); ABSOLUTE MONOCYTES (AUTO) 0.2 10^3/uL (0.1-1.4); BASOPHILS % (AUTO) 0.1 % (0-2); HEMATOCRIT 28.7 % (37.9-51.0); HEMOGLOBIN 9.2 g/dL (13.5-17.0); LYMPHOCYTES % (AUTO) 10.8 % (13-45); MEAN CORPUSCULAR HEMOGLOBIN 25.5 pg (27.0-33.4); MEAN CORPUSCULAR HGB CONC 32.1 g/dL (32.0-36.0); MEAN CORPUSCULAR VOLUME 80 fl (80-97); MONOCYTES % (AUTO) 2.3 % (3-13); PLATELET COUNT 225 10^3/uL (150-450); RED BLOOD COUNT 3.61 10^6/uL (4.35-5.55); RED CELL DISTRIBUTION WIDTH 19.7 % (11.5-14.0); SEGMENTED NEUTROPHILS % (AUTO) 86.8 % (42-78); TOTAL CELLS COUNTED % (AUTO) 100 %; WHITE BLOOD COUNT 10.4 10^3/uL (4.0-10.5)
[2018-03-16 08:15] LABS: VANCOMYCIN,TROUGH 12.9 ug/mL (5.0-20.0)
[2018-03-16] MEDS: IPRATROPIUM/ALBUTEROL 0.5-2.5 MG/3 ML AMPUL NEB SCH ×3 (08:40→20:10)
[2018-03-16] MEDS: TAMSULOSIN HCL 0.4 MG CAP.SR.24H PO SCH (09:17)
[2018-03-16] MEDS: ASPIRIN 325 MG TABLET PO SCH (09:17)
[2018-03-16] MEDS: VANCOMYCIN HCL 750 MG in DEXTROSE 5%-WATER 250 ML IV SCH ×2 (09:17→20:44)
[2018-03-16] MEDS: DIGOXIN 0.125 MG TABLET PO SCH (09:17)
[2018-03-16] MEDS: DOCUSATE SODIUM 100 MG CAPSULE PO SCH ×2 (09:17→22:25)
[2018-03-16] MEDS: FLUTICASONE NASAL SPRAY 50 MCG/SPRY 120 SPRAY/16 GM NASL SCH ×2 (09:18→22:24)
[2018-03-16] MEDS: BUDESONIDE/FORMOTEROL 160-4.5 MCG 60 PUFF/6 GM MDI IH SCH ×2 (09:19→22:24)
[2018-03-16] MEDS ORDERED: LEVOFLOXACIN 750 MG TABLET PO SCH (10:00)
--- NOTE | 2018-03-16 12:04 | PDOC PROGRESS REPORT ---
Subjective Progress Note for:: 03/16/18 Subjective:: Got pretty confused with Ativan last night. Still a little cloudy. No other complaints. Reason For Visit: PNEUMONIA, AFIB CHF Physical Exam Vital Signs: Temp Pulse Resp BP Pulse Ox 97.8 F 72 19 117/56 L 100 03/16/18 07:46 03/16/18 08:40 03/16/18 08:40 03/16/18 07:46 03/16/18 08:40 Pulse Oximeter Continuous Start: 03/14/18 05: 44 Freq: RTQ4 Status: Active Document 03/16/18 08:40 HCR (Rec: 03/16/18 10:26 HCR [email or web address]) Pulse Oximetry Assessment Oxygen Saturation (92-100) 100 Oxygen Flow Rate (L/min) 2 Oxygen Delivery Method Nasal Cannula Equipment Usage Equipment in Use Continuous SpO2 Machine # 2 Intake & Output 03/15/18 03/16/18 03/17/18 06:59 06:59 06:59 Intake Total 1864 2489 Output Total 800 1175 Balance 1064 1314 Weight 72.7 kg 73.1 kg General appearance: PRESENT: no acute distress Cardiovascular exam: PRESENT: other - Irregularly irregular GI/Abdominal exam: PRESENT: soft Extremities exam: PRESENT: +2 edema - Below the knees bilaterally Neurological exam: PRESENT: alert, other - A little clouded Results Laboratory Results: 03/16/18 07:30 03/16/18 07:30 03/15/18 03/15/18 03/15/18 04:55 15:35 15:35 WBC RBC Hgb Hct MCV MCH MCHC RDW Plt Count Seg Neutrophils % Lymphocytes % Monocytes % Eosinophils % Basophils % Absolute Neutrophils Absolute Lymphocytes Absolute Monocytes Absolute Eosinophils Absolute Basophils Retic Count (auto) 0.78 Absolute Retic 0.027 L Sodium 137.8 Potassium 5.1 H Chloride 100 Carbon Dioxide 32 H Anion Gap 6 BUN 30 H Creatinine 1.10 Est GFR ( Amer) > 60 Est GFR (Non-Af Amer) > 60 Glucose 97 Calcium 8.5 Phosphorus 3.7 Magnesium 2.0 Iron Albumin 2.7 L TSH 1.43 03/15/18 03/16/18 03/16/18 15:35 07:30 07:30 WBC 10.4 RBC 3.61 L Hgb 9.2 L Hct 28.7 L MCV 80 MCH 25.5 L MCHC 32.1 RDW 19.7 H Plt Count 225 Seg Neutrophils % 86.8 H Lymphocytes % 10.8 L Monocytes % 2.3 L Eosinophils % 0.0 Basophils % 0.1 Absolute Neutrophils 9.0 H Absolute Lymphocytes 1.1 Absolute Monocytes 0.2 Absolute Eosinophils 0.0 Absolute Basophils 0.0 Retic Count (auto) Absolute Retic Sodium Potassium Chloride Carbon Dioxide Anion Gap BUN Creatinine 0.98 Est GFR ( Amer) > 60 Est GFR (Non-Af Amer) > 60 Glucose Calcium Phosphorus Magnesium Iron 11.8 L Albumin TSH 03/14/18 18:50 Sputum Gram Stain - Final 03/14/18 03/14/18 03/14/18 14:28 14:28 21:20 Creatine Kinase 34 L 44 L CK-MB (CK-2) 0.86 Troponin I 0.180 03/14/18 21:20 Creatine Kinase CK-MB (CK-2) 1.13 Troponin I 0.123 Impressions: Chest X-Ray 03/14/18 03:43 IMPRESSION: Interval worsening includes moderate right lower lobar opacity-effusion. Assessment & Plan - Diagnosis (1) Healthcare-associated pneumonia Is this a current diagnosis for this admission?: Yes Plan: Continue vancomycin, Zosyn because of his history of Pseudomonas and Acinitobacter (2) Acute on chronic diastolic heart failure Is this a current diagnosis for this admission?: Yes Plan: His pressure is better today so I will diurese him a little more (3) Acute on chronic respiratory failure with hypoxemia Is this a current diagnosis for this admission?: Yes (4) Anemia Qualifiers: Anemia type: iron deficiency Iron deficiency anemia type: unspecified iron deficiency Qualified Code(s): D50.9 - Iron deficiency anemia, unspecified Is this a current diagnosis for this admission?: Yes Plan: Replace his iron (5) Bronchiectasis Qualifiers: Bronchiectasis type: with acute exacerbation Qualified Code(s): J47.1 - Bronchiectasis with (acute) exacerbation Is this a current diagnosis for this admission?: Yes (6) COPD with acute exacerbation Is this a current diagnosis for this admission?: Yes Plan: Nebulizers, steroids, aggressive pulmonary toilet. Change steroids to oral (7) Atrial fibrillation Qualifiers: Atrial fibrillation type: chronic Qualified Code(s): I48.2 - Chronic atrial fibrillation Is this a current diagnosis for this admission?: Yes Plan: Rate controlled (8) HLD (hyperlipidemia) Qualifiers: Hyperlipidemia type: unspecified Qualified Code(s): E78.5 - Hyperlipidemia , unspecified Is this a current diagnosis for this admission?: Yes Plan: Continue home medication
[2018-03-16] MEDS ORDERED: FUROSEMIDE INJ/PF 40 MG/4 ML SDV IV ONE (12:05)
[2018-03-16] MEDS ORDERED: IRON SUCROSE COMPLEX INJ/PF 100 MG/5 ML SDV IV ONE (13:00)
[2018-03-16 14:45] LABS: ANION GAP 8 (5-19); BLOOD UREA NITROGEN 31 mg/dL (7-20); CALCIUM 9.2 mg/dL (8.4-10.2); CARBON DIOXIDE 28 mmol/L (22-30); CHLORIDE 102 mmol/L (98-107); GLUCOSE 104 mg/dL (75-110); PHOSPHORUS 3.4 mg/dL (2.5-4.5); POTASSIUM 4.3 mmol/L (3.6-5.0); SODIUM 138.4 mmol/L (137-145)
[2018-03-16] MEDS: OXYCODONE-ACETAMINOPHEN 5-325 MG TABLET PO PRN (18:24)
--- NOTE | 2018-03-16 18:27 | Progress Note ---
Provider Note Provider Note: ID Consult Note Asked to review patient's chart by Pharmacy. Pt not seen or examined. Chart reviewed and discussed with pharmacist. Mr. Figueroa is an 82 [facility] male [facility] who has pmh including COPD, anxiety, CAD s/p CABG, atrial fibrillation s/p PPM and multiple admissions over the past few months for SOB. Most recent preceding admission was from 03/06- for a diagnosis of pneumonia with pleural effusion that required thoracentesis. During that admission his sputum culture grew 4+ Acinetobacter baumanii that was reported as susceptible to amikacin, ampicillin/sulbactam, gentamicin, meropenem, and tobramycin; it was intermediate to cefepime and resistant to Levaquin, Timentin, and bactrim among others. He returned to the hospital on 03/14 with AF with RVR, leukocytosis of 29k, and CXR read as showing interval worsening with R>L opacities. He has been treated empirically with Levaquin/vancomycin. Levaquin was then changed to Zosyn. Sputum Gram stain on has been reported as showing 4+ GNRs on Gram stain. Impression: Gram negative bacillary healthcare associated pneumonia - The sputum Gram stain has yielded 4+ GNRs on Gram stain. Quality of the sputum appears to be acceptable, given that there were 1+ PMNs and few epithelial cells. No GPCs were seen. Culture is in process. Based on the preliminary information, vancomycin is not likely to be needed. Based on the patient's most recent sputum culture prior to this admission, which grew the GNR Acinetobacter baumanii, meropenem may be a better choice than Zosyn or Levaquin while awaiting further data. Zosyn was not part of the panel tested, and susceptibility reported to ampicillin/sulbactam reflects the activity of sulbactam, rather than that of ampicillin, and does not shed light on whether Zosyn is likely to be effective. Recommendations - Recommend meropenem empirically instead of Zosyn. If culture growth is only that of a GNR, vancomycin can be discontinued. - F/u identification and susceptibilities for the GNR and modify antibiotic therapy accordingly Sam Lundberg MD [facility] Infectious Diseases pager [phone]
[2018-03-16] MEDS ORDERED: LORAZEPAM 0.5 MG TABLET PO PRN (19:40)
[2018-03-16] MEDS: ATORVASTATIN CALCIUM 80 MG TABLET PO SCH (22:25)
[2018-03-17] MEDS: PIPERACILLIN SODIUM/TAZOBACTAM 3.375 GM in NORMAL SALINE 100 ML IV SCH ×2 (00:28→05:06)
[2018-03-17] MEDS: HEPARIN SOD (PORCINE) 5,000 UNIT/ML 1 ML SYRINGE SUBCUT SCH ×3 (05:05→22:23)
[2018-03-17] MEDS: GABAPENTIN 300 MG CAPSULE PO SCH ×3 (05:05→22:23)
[2018-03-17] MEDS: DILTIAZEM HCL 60 MG TABLET PO SCH ×3 (05:06→22:23)
[2018-03-17] MEDS: IPRATROPIUM/ALBUTEROL 0.5-2.5 MG/3 ML AMPUL NEB SCH ×3 (08:20→20:09)
[2018-03-17] MEDS: ASPIRIN 325 MG TABLET PO SCH (09:22)
[2018-03-17] MEDS: TAMSULOSIN HCL 0.4 MG CAP.SR.24H PO SCH (09:22)
[2018-03-17] MEDS: IRON SUCROSE COMPLEX INJ/PF 100 MG/5 ML SDV IV SCH (09:22)
[2018-03-17] MEDS: PREDNISONE 20 MG TABLET PO SCH (09:22)
[2018-03-17] MEDS: DIGOXIN 0.125 MG TABLET PO SCH (09:22)
[2018-03-17] MEDS: DOCUSATE SODIUM 100 MG CAPSULE PO SCH ×2 (09:23→22:23)
[2018-03-17] MEDS: VANCOMYCIN HCL 750 MG in DEXTROSE 5%-WATER 250 ML IV SCH ×2 (09:24→20:35)
[2018-03-17] MEDS: FLUTICASONE NASAL SPRAY 50 MCG/SPRY 120 SPRAY/16 GM NASL SCH ×2 (09:26→22:23)
[2018-03-17] MEDS: BUDESONIDE/FORMOTEROL 160-4.5 MCG 60 PUFF/6 GM MDI IH SCH ×2 (09:26→22:23)
[2018-03-17] MEDS: MEROPENEM 500 MG in NORMAL SALINE 50 ML IV SCH ×2 (14:09→22:22)
[2018-03-17] MEDS: OXYCODONE-ACETAMINOPHEN 5-325 MG TABLET PO PRN (14:11)
--- NOTE | 2018-03-17 14:45 | PDOC PROGRESS REPORT ---
Subjective Progress Note for:: 03/17/18 Subjective:: No new complaints. Reason For Visit: PNEUMONIA, AFIB CHF Physical Exam Vital Signs: Temp Pulse Resp BP Pulse Ox 97.9 F 80 18 98/44 L 97 03/17/18 12:39 03/17/18 14:00 03/17/18 14:00 03/17/18 12:39 03/17/18 14:00 Pulse Oximeter Continuous Start: 03/14/18 05: 44 Freq: RTQ4 Status: Complete Document 03/16/18 08:40 HCR (Rec: 03/16/18 10:26 HCR [email or web address]) Pulse Oximetry Assessment Oxygen Saturation (92-100) 100 Oxygen Flow Rate (L/min) 2 Oxygen Delivery Method Nasal Cannula Equipment Usage Equipment in Use Continuous SpO2 Machine # 2 Intake & Output 03/16/18 03/17/18 03/18/18 06:59 06:59 06:59 Intake Total 2489 2812 237 Output Total 1175 2100 Balance 1314 712 237 Weight 73.1 kg 72.1 kg General appearance: PRESENT: no acute distress, thin Respiratory exam: PRESENT: crackles - Right basilar, decreased breath sounds, prolonged expiratory phas Cardiovascular exam: PRESENT: other - Irregularly irregular GI/Abdominal exam: PRESENT: soft Extremities exam: PRESENT: +1 edema - Below the knees Neurological exam: PRESENT: awake, oriented to person, oriented to place Psychiatric exam: PRESENT: appropriate affect Skin exam: PRESENT: dry, warm Results Laboratory Results: 03/16/18 07:30 03/16/18 13:53 03/16/18 13:53 Sodium 138.4 Potassium 4.3 Chloride 102 Carbon Dioxide 28 Anion Gap 8 BUN 31 H Creatinine 0.96 Est GFR ( Amer) > 60 Est GFR (Non-Af Amer) > 60 Glucose 104 Calcium 9.2 Phosphorus 3.4 Magnesium 2.3 Albumin 3.0 L 03/14/18 18:50 Sputum Gram Stain - Final 03/14/18 18:50 Sputum Sputum Culture - Final Acinetobacter Species Normal Brittny Absent 03/14/18 03/14/18 03/14/18 14:28 14:28 21:20 Creatine Kinase 34 L 44 L CK-MB (CK-2) 0.86 Troponin I 0.180 03/14/18 21:20 Creatine Kinase CK-MB (CK-2) 1.13 Troponin I 0.123 Impressions: Chest X-Ray 03/14/18 03:43 IMPRESSION: Interval worsening includes moderate right lower lobar opacity-effusion. Assessment & Plan - Diagnosis (1) Healthcare-associated pneumonia Is this a current diagnosis for this admission?: Yes Plan: Sputum cultures grew out Acinitobacter so changed to Zosyn and Levaquin to meropenem. I would prefer to leave the vancomycin in place for now. I will stop it at discharge. He will need another week of meropenem. I will have a PICC line placed and ask the discharge planners to see if we can either move him home or in to an extended care facility to complete his antibiotic course. (2) Acute on chronic diastolic heart failure Is this a current diagnosis for this admission?: Yes Plan: Blood pressure continues to limit how much we can diuresis him (3) Acute on chronic respiratory failure with hypoxemia Is this a current diagnosis for this admission?: Yes (4) Anemia Qualifiers: Anemia type: iron deficiency Iron deficiency anemia type: unspecified iron deficiency Qualified Code(s): D50.9 - Iron deficiency anemia, unspecified Is this a current diagnosis for this admission?: Yes Plan: Replace his iron (5) Bronchiectasis Qualifiers: Bronchiectasis type: with acute exacerbation Qualified Code(s): J47.1 - Bronchiectasis with (acute) exacerbation Is this a current diagnosis for this admission?: Yes (6) COPD with acute exacerbation Is this a current diagnosis for this admission?: Yes Plan: Nebulizers, steroids, aggressive pulmonary toilet. (7) Atrial fibrillation Qualifiers: Atrial fibrillation type: chronic Qualified Code(s): I48.2 - Chronic atrial fibrillation Is this a current diagnosis for this admission?: Yes Plan: Rate controlled (8) HLD (hyperlipidemia) Qualifiers: Hyperlipidemia type: unspecified Qualified Code(s): E78.5 - Hyperlipidemia , unspecified Is this a current diagnosis for this admission?: Yes Plan: Continue home medication
[2018-03-17 15:03] LABS: HEMATOCRIT 26.7 % (37.9-51.0); HEMOGLOBIN 8.9 g/dL (13.5-17.0); MEAN CORPUSCULAR HEMOGLOBIN 25.9 pg (27.0-33.4); MEAN CORPUSCULAR HGB CONC 33.1 g/dL (32.0-36.0); MEAN CORPUSCULAR VOLUME 78 fl (80-97); PLATELET COUNT 202 10^3/uL (150-450); RED BLOOD COUNT 3.42 10^6/uL (4.35-5.55); RED CELL DISTRIBUTION WIDTH 20.4 % (11.5-14.0); WHITE BLOOD COUNT 19.9 10^3/uL (4.0-10.5)
[2018-03-17 15:26] LABS: ABSOLUTE LYMPHOCYTES# (MANUAL) 0.6 10^3/uL (0.5-4.7); ABSOLUTE MONOCYTES # (MANUAL) 0.4 10^3/uL (0.1-1.4); ABSOLUTE NEUTROPHILS# (MANUAL) 18.9 10^3/uL (1.7-8.2); BASOPHILS % (MANUAL) 0 % (0-2); EOSINOPHILS % (MANUAL) 0 % (0-6); LYMPHOCYTES % (MANUAL) 3 % (13-45); MONOCYTES % (MANUAL) 2 % (3-13); SEGMENTED NEUTROPHILS % (MAN) 95 % (42-78); TOTAL CELLS COUNTED 100
[2018-03-17 15:28] LABS: ANISOCYTOSIS 2+; BURR CELLS SLIGHT; OVALOCYTES SLIGHT; PLATELET COMMENT ADEQUATE; POIKILOCYTOSIS SLIGHT; TOXIC GRANULATION SLIGHT
[2018-03-17] MEDS ORDERED: VENLAFAXINE HCL 37.5 MG CAP.SR.24H PO ONE (15:30)
[2018-03-17 15:32] LABS: ALBUMIN 3.1 g/dL (3.5-5.0); ANION GAP 9 (5-19); BLOOD UREA NITROGEN 32 mg/dL (7-20); CALCIUM 9.1 mg/dL (8.4-10.2); CARBON DIOXIDE 29 mmol/L (22-30); CHLORIDE 99 mmol/L (98-107); GLUCOSE 141 mg/dL (75-110); PHOSPHORUS 3.5 mg/dL (2.5-4.5); POTASSIUM 4.3 mmol/L (3.6-5.0); SODIUM 137.3 mmol/L (137-145)
[2018-03-17] MEDS: MAG HYDROX/AL HYDROX/SIMETH SUSP 30 ML UDCUP PO PRN (22:23)
[2018-03-17] MEDS: ATORVASTATIN CALCIUM 80 MG TABLET PO SCH (22:23)
[2018-03-18] MEDS: HEPARIN SOD (PORCINE) 5,000 UNIT/ML 1 ML SYRINGE SUBCUT SCH ×2 (05:27→13:48)
[2018-03-18] MEDS: GABAPENTIN 300 MG CAPSULE PO SCH ×2 (05:28→13:49)
[2018-03-18] MEDS: DILTIAZEM HCL 60 MG TABLET PO SCH ×2 (05:28→13:49)
[2018-03-18] MEDS: MEROPENEM 500 MG in NORMAL SALINE 50 ML IV SCH ×2 (05:28→13:48)
[2018-03-18] MEDS: VANCOMYCIN HCL 750 MG in DEXTROSE 5%-WATER 250 ML IV SCH (08:27)
[2018-03-18] MEDS: IPRATROPIUM/ALBUTEROL 0.5-2.5 MG/3 ML AMPUL NEB SCH ×2 (08:54→14:26)
[2018-03-18] MEDS: ASPIRIN 325 MG TABLET PO SCH (09:32)
[2018-03-18] MEDS: DIGOXIN 0.125 MG TABLET PO SCH (09:32)
[2018-03-18] MEDS: DOCUSATE SODIUM 100 MG CAPSULE PO SCH (09:32)
[2018-03-18] MEDS: IRON SUCROSE COMPLEX INJ/PF 100 MG/5 ML SDV IV SCH (09:33)
[2018-03-18] MEDS: PREDNISONE 20 MG TABLET PO SCH (09:33)
[2018-03-18] MEDS: TAMSULOSIN HCL 0.4 MG CAP.SR.24H PO SCH (09:33)
[2018-03-18] MEDS: BUDESONIDE/FORMOTEROL 160-4.5 MCG 60 PUFF/6 GM MDI IH SCH (09:34)
[2018-03-18] MEDS: FLUTICASONE NASAL SPRAY 50 MCG/SPRY 120 SPRAY/16 GM NASL SCH (09:34)
[2018-03-18] MEDS ORDERED: VENLAFAXINE HCL 37.5 MG CAP.SR.24H PO SCH (10:00)
--- NOTE | 2018-03-18 11:14 | RADIOLOGY REPORT (SQ) ---
EXAM DESCRIPTION: PICC INSERTION; U/S GUIDE FOR VASCULAR ACCESS; FLUORO/CV PLACEMENT COMPLETED DATE/TIME: 03/18/2018 10:51 am REASON FOR STUDY: Out patient abx; IV ABX COMPARISON: None. FLUOROSCOPY TIME: 6 seconds. 1 images saved to PACS. TECHNIQUE: Fluoroscopic and ultrasound guided PICC placement. LIMITATIONS: None. PROCEDURE: After written consent and assessment were obtained, the patient was brought into the fluo roscopy room and place supine on the table. Ultrasound was used on the patient's right arm for PICC access. The right arm was prepped and draped in a sterile fashion along with the ultrasound probe. Th e entry site was anesthetized with 1% lidocaine. A 21 gauge 7 cm needle was advanced through the skin and into the basilic vein under live ultrasound guidance. An ultrasound image was saved to PACS con firming access site. A .018 guide wire was then inserted through the needle and into the venous syst em. The needle was the removed and an 11 blade scalpel was used to make a 1cm skin incision. A 5 fr peel-away sheath was advanced over the wire and into the venous system. A measurement was then made u sing the existing wire and live fluoroscopic guidance. The wire was then removed and the trimmed. The PICC was advanced through the peel-away sheath and into the venous system. The peel-away sheath was removed and the catheter was adhered to the patients arm with a stat lock. The catheter was then aspi rated and flushed and a sterile bandage was placed over the access site. A fluoroscopic spot image w as saved to PACS confirming the catheter tip within the superior vena cava. IMPRESSION: SUCCESSFUL PLACEMENT OF A 5 FR DUAL LUMEN 44 CM PICC IN THE RIGHT BASILIC VEIN. COMMENT: Patient medication list reviewed: Yes- Quality ID# 130:Eligible professional attests to doc umenting in the medical record they obtained, updated, or reviewed the patient's current medications. . Quality ID 145: Final reports for procedures using fluoroscopy that document radiation exposure munira fer, or exposure time and number of fluorographic images (if radiation exposure indices are not avail able) Quality ID #76: The patient was prepped and draped using maximum sterile barrier technique including cap, mask, sterile gown, sterile gloves, a large sterile sheet, hand hygiene, and 2% Chlorhexidine fo r cutaneous antisepsis. When ultrasound is used, sterile ultrasound techniques are followed requiring sterile gel and sterile probes. TECHNICAL DOCUMENTATION: JOB ID: [id number] [employer]- All Rights Reserved Reading location - IP/workstation name: [email or web address]
--- NOTE | 2018-03-18 11:16 | PDOC PROGRESS REPORT ---
Subjective Progress Note for:: 03/18/18 Subjective:: Roughly stable since yesterday. No new complaints. Discharge planning discussed with family Reason For Visit: PNEUMONIA, AFIB CHF Physical Exam Vital Signs: Temp Pulse Resp BP Pulse Ox 97.8 F 89 18 110/57 L 95 03/18/18 07:36 03/18/18 08:54 03/18/18 08:54 03/18/18 07:36 03/18/18 08:54 Pulse Oximeter Continuous Start: 03/14/18 05: 44 Freq: RTQ4 Status: Complete Document 03/16/18 08:40 HCR (Rec: 03/16/18 10:26 HCR [email or web address]) Pulse Oximetry Assessment Oxygen Saturation (92-100) 100 Oxygen Flow Rate (L/min) 2 Oxygen Delivery Method Nasal Cannula Equipment Usage Equipment in Use Continuous SpO2 Machine # 2 Intake & Output 03/17/18 03/18/18 03/19/18 06:59 06:59 06:59 Intake Total 2812 1689 Output Total 2100 600 Balance 712 1089 Weight 72.1 kg 76.5 kg General appearance: PRESENT: no acute distress Respiratory exam: PRESENT: clear to auscultation alicia, decreased breath sounds, prolonged expiratory phas, unlabored Cardiovascular exam: PRESENT: other - Irregularly irregular GI/Abdominal exam: PRESENT: soft Extremities exam: PRESENT: +1 edema - Below the knees Musculoskeletal exam: PRESENT: normal inspection Neurological exam: PRESENT: alert, oriented to person, oriented to place Skin exam: PRESENT: warm Results Laboratory Results: 03/17/18 14:37 03/17/18 14:37 03/17/18 03/17/18 14:37 14:37 WBC 19.9 H RBC 3.42 L Hgb 8.9 L Hct 26.7 L MCV 78 L MCH 25.9 L MCHC 33.1 RDW 20.4 H Plt Count 202 Seg Neutrophils % Not Reportable Lymphocytes % Not Reportable Monocytes % Not Reportable Eosinophils % Not Reportable Basophils % Not Reportable Absolute Neutrophils Not Reportable Absolute Lymphocytes Not Reportable Absolute Monocytes Not Reportable Absolute Eosinophils Not Reportable Absolute Basophils Not Reportable Sodium 137.3 Potassium 4.3 Chloride 99 Carbon Dioxide 29 Anion Gap 9 BUN 32 H Creatinine 1.13 Est GFR ( Amer) > 60 Est GFR (Non-Af Amer) > 60 Glucose 141 H Calcium 9.1 Phosphorus 3.5 Magnesium 2.2 Albumin 3.1 L 03/14/18 18:50 Sputum Gram Stain - Final 03/14/18 18:50 Sputum Sputum Culture - Final Acinetobacter Species Normal Brittny Absent 03/14/18 03/14/18 03/14/18 14:28 14:28 21:20 Creatine Kinase 34 L 44 L CK-MB (CK-2) 0.86 Troponin I 0.180 NT-Pro-B Natriuret Pep 03/14/18 03/17/18 21:20 14:37 Creatine Kinase CK-MB (CK-2) 1.13 Troponin I 0.123 NT-Pro-B Natriuret Pep 2700 H Impressions: Chest X-Ray 03/14/18 03:43 IMPRESSION: Interval worsening includes moderate right lower lobar opacity-effusion. Assessment & Plan - Diagnosis (1) Healthcare-associated pneumonia Is this a current diagnosis for this admission?: Yes Plan: Sputum cultures grew out Acinitobacter so changed to Zosyn and Levaquin to meropenem. I will stop his vancomycin. He will need another week of meropenem. I will have a PICC line placed and ask the discharge planners to see if we can either move him home or in to an extended care facility to complete another week of meropenem. (2) Acute on chronic diastolic heart failure Is this a current diagnosis for this admission?: Yes Plan: Blood pressure continues to limit how much we can diuresis him (3) Acute on chronic respiratory failure with hypoxemia Is this a current diagnosis for this admission?: Yes Plan: I think he is approaching baseline. As noted we will continue treating his Acinetobacter for another week. He will probably need home O2 for a while. He has been on O2 at night. (4) Anemia Qualifiers: Anemia type: iron deficiency Iron deficiency anemia type: unspecified iron deficiency Qualified Code(s): D50.9 - Iron deficiency anemia, unspecified Is this a current diagnosis for this admission?: Yes Plan: Replace his iron (5) Bronchiectasis Qualifiers: Bronchiectasis type: with acute exacerbation Qualified Code(s): J47.1 - Bronchiectasis with (acute) exacerbation Is this a current diagnosis for this admission?: Yes (6) COPD with acute exacerbation Is this a current diagnosis for this admission?: Yes Plan: Nebulizers, steroids, aggressive pulmonary toilet. (7) Atrial fibrillation Qualifiers: Atrial fibrillation type: chronic Qualified Code(s): I48.2 - Chronic atrial fibrillation Is this a current diagnosis for this admission?: Yes Plan: Rate controlled (8) HLD (hyperlipidemia) Qualifiers: Hyperlipidemia type: unspecified Qualified Code(s): E78.5 - Hyperlipidemia , unspecified Is this a current diagnosis for this admission?: Yes Plan: Continue home medication
--- NOTE | 2018-03-18 17:21 | PDOC DISCHARGE SUMMARY ---
General - Admit/Disc Date/PCP Admission Date/Primary Care Provider: 03/14/18 05:53 KELLIE BASSETT Discharge Date: 03/18/18 - Discharge Diagnosis (1) Healthcare-associated pneumonia Is this a current diagnosis for this admission?: Yes Summary: Cultures grew out Acinetobacter, he was started on meropenem and he will need a total of 10 days treatment, and he is currently stable to go home and get that treatment as an outpatient with home health. (2) Acute on chronic diastolic heart failure Is this a current diagnosis for this admission?: Yes Summary: He was diuresed as tolerated. Blood pressure was a limiting factor. He has not had any diuretics in 2 days due to his marginal blood pressure. He still has about 2 mm of pretibial edema. (3) Acute on chronic respiratory failure with hypoxemia Is this a current diagnosis for this admission?: Yes Summary: Improving. He is down to 1/2-1 L per nasal cannula which will be continued at home and monitored by home health. He had previously been on oxygen at night so he already has the equipment in the home. (4) Anemia Is this a current diagnosis for this admission?: Yes Summary: Iron deficient. Started on Venofer here in the hospital, and he will be discharged on ferrous sulfate with vitamin C (5) Bronchiectasis Is this a current diagnosis for this admission?: Yes (6) COPD with acute exacerbation Is this a current diagnosis for this admission?: Yes Summary: I am arranging for him to get a nebulizer, and I will send him out with eli hendricks. He is on Symbicort, he will be sent on 5 day prednisone taper. (7) Atrial fibrillation Is this a current diagnosis for this admission?: Yes Summary: Started on Cardizem this admission for rate control. I think he is very high risk for bleeding and so I did not anticoagulate him. (8) HLD (hyperlipidemia) Is this a current diagnosis for this admission?: Yes Summary: Home medications were continued - Additional Information Resuscitation Status: Do Not Resuscitate Discharge Diet: Cardiac Discharge Activity: Activity As Tolerated, Balance Activity w/Rest, Weigh Daily Prescriptions: Ascorbic Acid [C-500] 500 mg PO ASDIR PRN #60 tablet.er PRN Reason: Diltiazem HCl [Cardizem 60 mg Tablet] 60 mg PO Q8 #90 tablet Ferrous Sulfate [Ferosul] 325 mg PO ASDIR #60 tablet Gabapentin [Neurontin 300 mg Capsule] 600 mg PO Q8 #180 capsule Ipratropium/Albuterol Sulfate [Duoneb 3 ml Ampul] 3 ml NEB [id number] #180 vial.neb Nebulizer [Aeroneb Go Nebulizer] 1 each ASDIR PRN #1 each PRN Reason: Prednisone [Deltasone 20 mg Tablet] 20 mg PO ASDIR PRN #15 tablet PRN Reason: Tamsulosin HCl [Flomax 0.4 mg Cap.sr] 0.4 mg PO DAILY #30 cap.sr.24h Venlafaxine HCl ER [Effexor Xr 37.5 mg Cap.sr] 37.5 mg PO DAILY #30 cap.sr.24h Home Medications: Albuterol Sulfate [Proair HFA Inhalation Aerosol 8.5 gm MDI] 1 puff IH Q4HP PRN 03/14/18 Atorvastatin Calcium [Lipitor 80 mg Tablet] 80 mg PO QHS 03/14/18 Budesonide/Formoterol Fumarate [Symbicort HFA 160-4.5 mcg Inhaler 6 gm] 2 puff IH Q12 03/14/18 Digoxin [Lanoxin 0.125 mg Tablet] 0.125 mg PO DAILY 03/14/18 Ascorbic Acid [C-500] 500 mg PO ASDIR PRN #60 tablet.er 03/18/18 Diltiazem HCl [Cardizem 60 mg Tablet] 60 mg PO Q8 #90 tablet 03/18/18 Ferrous Sulfate [Ferosul] 325 mg PO ASDIR #60 tablet 03/18/18 Fluticasone Propionate [Flonase Nasal [place] 50 Mcg/[place] 16 gm] 2 spray NASL Q12 spray.pump 03/18/18 Gabapentin [Neurontin 300 mg Capsule] 600 mg PO Q8 #180 capsule 03/18/18 Ipratropium/Albuterol Sulfate [Duoneb 3 ml Ampul] 3 ml NEB RTQ4HP PRN vial.neb 03/18/18 Ipratropium/Albuterol Sulfate [Duoneb 3 ml Ampul] 3 ml NEB [id number] #180 vial.neb 03/18/18 Meropenem [Merrem 500 mg Vial] 500 mg IV Q8 #21 vial 03/18/18 Nebulizer [Aeroneb Go Nebulizer] 1 each ASDIR PRN #1 each 03/18/18 Normal Saline [NaCl 0.9% 50 ml IV Soln] 50 ml IV Q8 #21 iv.soln 03/18/18 Prednisone [Deltasone 20 mg Tablet] 20 mg PO ASDIR PRN #15 tablet 03/18/18 Tamsulosin HCl [Flomax 0.4 mg Cap.sr] 0.4 mg PO DAILY #30 cap.sr.24h 03/18/18 Venlafaxine HCl ER [Effexor Xr 37.5 mg Cap.sr] 37.5 mg PO DAILY #30 cap.sr.24h 03/18/18 History of Present Illness Patient complains of: Short of breath History of Present Illness: JEAN-PIERRE OLIVAREZ is a 82 year old male with a past medical history of atrial fibrillation, COPD, chronic bronchitis, recurrent MRSA pneumonia, anxiety, coronary artery disease status post bypass grafting with permanent pacemaker. Patient is chronically ill with admission [facility] 28 days of the past 2 months. [facility] returning to the emergency room with shortness of breath found to be in A. fib with RVR in the 140s and a leukocytosis of 29,000 and left-sided infiltrate on chest x-ray. He started on IV Cardizem, BiPAP, vancomycin and referred to the hospitalist for admission. Patient denies chest pain nausea vomiting diaphoresis. Hospital Course Hospital Course: He was initially treated with vancomycin and Zosyn. Sputum cultures came back positive for Acinetobacter so he was changed over to meropenem. He will need to complete another 7 days as an outpatient. He was initially placed on a Cardizem drip, that has been transitioned to oral Cardizem. His COPD was treated with nebulizers, steroids, and aggressive pulmonary toilet. Oxygen requirements have decreased to half to 1 L. I would anticipate that he will get back to only requiring oxygen at night as previous. Physical Exam Vital Signs: Temp Pulse Resp BP Pulse Ox 97.8 F 83 18 114/72 98 03/18/18 11:38 03/18/18 14:26 03/18/18 14:26 03/18/18 11:38 03/18/18 14:26 Pulse Oximeter Continuous Start: 03/14/18 05: 44 Freq: RTQ4 Status: Complete Document 03/16/18 08:40 HCR (Rec: 03/16/18 10:26 HCR [email or web address]) Pulse Oximetry Assessment Oxygen Saturation (92-100) 100 Oxygen Flow Rate (L/min) 2 Oxygen Delivery Method Nasal Cannula Equipment Usage Equipment in Use Continuous SpO2 Machine # 2 Intake & Output 03/17/18 03/18/18 03/19/18 06:59 06:59 06:59 Intake Total 2812 1689 100 Output Total 2100 600 200 Balance 712 1089 -100 Weight 72.1 kg 76.5 kg General appearance: PRESENT: no acute distress Respiratory exam: PRESENT: clear to auscultation alicia, decreased breath sounds, prolonged expiratory phas Cardiovascular exam: PRESENT: other - Irregularly irregular GI/Abdominal exam: PRESENT: soft Extremities exam: PRESENT: +1 edema Musculoskeletal exam: PRESENT: normal inspection Neurological exam: PRESENT: alert Psychiatric exam: PRESENT: appropriate affect Skin exam: PRESENT: warm Results Laboratory Results: 03/17/18 14:37 03/17/18 14:37 03/14/18 03/14/18 03/14/18 14:28 14:28 21:20 Creatine Kinase 34 L 44 L CK-MB (CK-2) 0.86 Troponin I 0.180 NT-Pro-B Natriuret Pep 03/14/18 03/17/18 21:20 14:37 Creatine Kinase CK-MB (CK-2) 1.13 Troponin I 0.123 NT-Pro-B Natriuret Pep 2700 H Impressions: Chest X-Ray 03/14/18 03:43 IMPRESSION: Interval worsening includes moderate right lower lobar opacity-effusion. Guidance Fluoroscopy 03/18/18 00:00 IMPRESSION: SUCCESSFUL PLACEMENT OF A 5 FR DUAL LUMEN 44 CM PICC IN THE RIGHT BASILIC VEIN. Interventional Vascular Procedure 03/18/18 00:00 IMPRESSION: SUCCESSFUL PLACEMENT OF A 5 FR DUAL LUMEN 44 CM PICC IN THE RIGHT BASILIC VEIN. PICC Line Insertion 03/18/18 00:00 IMPRESSION: SUCCESSFUL PLACEMENT OF A 5 FR DUAL LUMEN 44 CM PICC IN THE RIGHT BASILIC VEIN. Qualifiers - * PATEINT BEING DISCHARGED WITH ANY OF THE FOLLOWING DIAGNOSIS?: Heart Failure HF Pt being discharged on ACEI for LVEF less than 40%?: No Reason(s) for not prescribing ACEI:: Not indicated HF Pt being discharged on ARBS for LVEF less than 40%?: No Reason(s) for not prescribing ARBS:: Not indicated HF Pt with Afib discharged with Warfarin?: No Reason(s) for not prescribing Warfarin:: Propensity to reaction HF Pt discharged on evidence-based Beta Paulette:: No Reason(s) for not prescribing evidence-based Beta Paulette:: Drug intolerance
[2018-03-18 18:24] VITALS: BP 95/48
== END 2018-03-18 18:37 | disposition home health service (06) | DRG 177 ==
LOC: ER 03:37 → EH 05:53 → 3W 11:35
PROVIDERS: ADMIT Internal Medicine; ATTEND Internal Medicine
PROC: 5A09557 Assistance with Respiratory Ventilation, Greater than 96 Consecutive Hours, Continuous Positive Airway Pressure (ICD-10-PCS; 2018-03-14)
PROC: 02HV33Z Insertion of Infusion Device into Superior Vena Cava, Percutaneous Approach (ICD-10-PCS; principal; 2018-03-18)
PROC: B518ZZA Fluoroscopy of Superior Vena Cava, Guidance (ICD-10-PCS; 2018-03-18)
DX: J15.8 Pneumonia due to other specified bacteria (principal); I50.33 Acute on chronic diastolic (congestive) heart failure; J96.21 Acute and chronic respiratory failure with hypoxia; J44.0 Chronic obstructive pulmonary disease with (acute) lower respiratory infection; J44.1 Chronic obstructive pulmonary disease with (acute) exacerbation; J15.6 Pneumonia due to other Gram-negative bacteria; I48.2 Chronic atrial fibrillation; F41.9 Anxiety disorder, unspecified; I11.0 Hypertensive heart disease with heart failure; I25.10 Atherosclerotic heart disease of native coronary artery without angina pectoris; Z66 Do not resuscitate; D64.9 Anemia, unspecified; E78.5 Hyperlipidemia, unspecified; K21.9 Gastro-esophageal reflux disease without esophagitis; M19.90 Unspecified osteoarthritis, unspecified site; F03.90 Unspecified dementia, unspecified severity, without behavioral disturbance, psychotic disturbance, mood disturbance, and anxiety; Z90.49 Acquired absence of other specified parts of digestive tract; Z79.82 Long term (current) use of aspirin; Z79.899 Other long term (current) drug therapy; Z87.01 Personal history of pneumonia (recurrent); I25.2 Old myocardial infarction; Z86.14 Personal history of Methicillin resistant Staphylococcus aureus infection; Z95.1 Presence of aortocoronary bypass graft; Z95.0 Presence of cardiac pacemaker
CPT/HCPCS: 36415; 36569; 71045; 76937; 77001; 80053; 80069; 80202; 82550; 82553; 82565; 83540; 83605; 83735; 83880; 84443; 84484; 85025; 85045; 85610; 87070; 87077; 87186; 87205; 93005; 93010; 94640; 94660; 94668; 94762; 94799; 96365; 96375; 99285; J1642; J1644; J1756; J1940; J1956; J2185; J2543; J2920; J2930; J3370; J3490; J7060; J7512; J7620

== ENCOUNTER 2018-03-24 22:36 | Inpatient (IN) | payer MEDICARE, BC ==
[2018-03-24] MEDS ORDERED: IPRATROPIUM/ALBUTEROL 0.5-2.5 MG/3 ML AMPUL NEB ONE (22:49)
--- NOTE | 2018-03-24 22:56 | ER Document Report ---
ED Respiratory Problem - General Chief Complaint: Shortness Of Breath Stated Complaint: TROUBLE BREATHING Time Seen by Provider: 03/24/18 22:41 Notes: Patient is an 82-year-old male with a history of CHF and COPD that comes emergency department for chief complaint of respiratory distress. Patient states that he was doing okay until this evening when he started to have increased difficulty getting around and then severe difficulty breathing. He is on 2 L nasal cannula at home with pulse oxygenation in the low 80s on initial presentation per EMS. He received multiple nebulizer treatments and Solu-Medrol in route, was given CPAP in route. Patient currently has a PICC line and is being treated with meropenem for Acinobacter culture growth. He was discharged about 1 week ago from the hospital after being admitted for pneumonia. He is on digoxin, Lasix, and has been compliant, but does report worsening lower extremity edema. He denies fever, new cough, chest pain. TRAVEL OUTSIDE OF THE [place] IN LAST 30 DAYS: No - Related Data Allergies/Adverse Reactions: tobramycin Adverse Reaction (Unknown, Verified 03/14/18 04:27) Past Medical History - General Information source: Patient - Social History Smoking Status: Former Smoker Frequency of alcohol use: None Drug Abuse: None Lives with: Spouse/Significant other Family History: COPD, Malignancy - Brain tumor - Past Medical History Cardiac Medical History: Reports: Hx Atrial Fibrillation - Aspirin only due to epistaxis with systemic anticoagulation., Hx Coronary Artery Disease, Hx Heart Attack - 08/2009, Hx Hypercholesterolemia, Hx Hypertension Denies: Hx DVT, Hx Pulmonary Embolism Pulmonary Medical History: Reports: Hx Bronchitis, Hx COPD, Hx Pneumonia Denies: Hx Asthma, Hx Sleep Apnea Neurological Medical History: Denies: Hx Cerebrovascular Accident, Hx Seizures Endocrine Medical History: Denies: Hx Diabetes Mellitus Type 1, Hx Diabetes Mellitus Type 2, Hx Hyperthyroidism, Hx Hypothyroidism Renal/ Medical History: Denies: Hx Peritoneal Dialysis Malignancy Medical History: Reports Hx Skin Cancer GI Medical History: Reports: Hx Gastroesophageal Reflux Disease. Denies: Hx Cirrhosis, Hx Hepatitis, Hx Hiatal Hernia, Hx Ulcer Musculoskeltal Medical History: Reports Hx Arthritis, Reports Hx Musculoskeletal Trauma Psychiatric Medical History: Reports: Hx Anxiety, Hx Dementia Denies: Hx Depression Infectious Medical History: Reports: Hx MRSA. Denies: Hx C-Diff, Hx Hepatitis Past Surgical History: Reports: Hx Appendectomy, Hx Coronary Artery Bypass Graft , Hx Open Heart Surgery, Hx Orthopedic Surgery - back surgery, Hx Pacemaker - Immunizations Immunizations up to date: Yes Hx Diphtheria, Pertussis, Tetanus Vaccination: Yes Review of Systems - Review of Systems Constitutional: No symptoms reported EENT: No symptoms reported Cardiovascular: See HPI Respiratory: See HPI Gastrointestinal: No symptoms reported Genitourinary: No symptoms reported Male Genitourinary: No symptoms reported Musculoskeletal: No symptoms reported Skin: No symptoms reported Hematologic/Lymphatic: No symptoms reported Neurological/Psychological: No symptoms reported Physical Exam - Vital signs Vitals: Resp Pulse Ox 14 100 03/24/18 22:47 03/24/18 22:47 Interpretation: Normal - General General appearance: Alert In distress: Mild - HEENT Head: Normocephalic, Atraumatic Eyes: Normal Pupils: PERRL - Respiratory Respiratory status: Respiratory distress, Labored, Tachypnea Chest status: Nontender Breath sounds: Decreased air movement, Rhonchi, Wheezing Chest palpation: Normal - Cardiovascular Rhythm: Regular. No: Tachycardia Heart sounds: Normal auscultation, S1 appreciated, S2 appreciated Murmur: No Normal capillary refill: Yes - Abdominal Inspection: Normal Distension: No distension Bowel sounds: Normal Tenderness: Nontender Organomegaly: No organomegaly - Back Back: Normal, Nontender - Extremities General upper extremity: Normal inspection, Nontender, Normal color, Normal ROM , Normal temperature General lower extremity: Nontender, Edema - Bilateral 3+ pitting edema, Normal ROM - Neurological Neuro grossly intact: Yes Cognition: Normal Orientation: AAOx4 Quinn Coma Scale Eye Opening: Spontaneous [place] Coma Scale Verbal: Oriented [place] Coma Scale Motor: Obeys Commands Quinn Coma Scale Total: 15 Speech: Normal Motor strength normal: LUE, RUE, LLE, RLE Sensory: Normal - Psychological Associated symptoms: Normal affect, Normal mood - Skin Skin Temperature: Warm Skin Moisture: Dry Skin Color: Normal Course - Re-evaluation Re-evalutation: On initial presentation patient in respiratory distress with tachypnea and labored breathing, patient was immediately placed on BiPAP, he had rapid significant improvement on this. Pulmonary auscultation showing expiratory wheezes, rhonchi, no overt rales, however patient has peripheral edema with significant pitting lower extremity edema bilaterally. Chest x-ray with the appearance of vascular congestion per my read and with Dr. Everett, opacity still present, no significant change from prior. BNP with no severe difference from prior but patient reports lower extremity edema has significantly worsened to the point that he can barely stand. confirms. Patient was given initial DuoNeb's, Solu-Medrol, given Lasix. Concern because of respiratory distress, hypoxia, lower extremity edema, COPD exacerbation, CHF exacerbation, will discuss for hospitalist admission. Discussed with Dr. Zapata, internal medicine, patient will be admitted to telemetry. Patient and state understanding and agreement. - Vital Signs Vital signs: Temp Pulse Resp BP Pulse Ox 97.6 F 74 16 106/57 L 98 03/25/18 04:11 03/25/18 04:11 03/25/18 04:11 03/25/18 04:11 03/25/18 04:11 - Laboratory Result Diagrams: 03/24/18 22:45 03/24/18 22:45 Laboratory results interpreted by me: 03/24/18 03/24/18 03/24/18 22:45 22:45 22:45 WBC 18.5 H RBC 3.65 L Hgb 9.4 L Hct 29.7 L MCH 25.8 L MCHC 31.6 L RDW 21.5 H Seg Neutrophils % 81.0 H Lymphocytes % 12.4 L Absolute Neutrophils 15.0 H Potassium 5.1 H Carbon Dioxide 35 H BUN 29 H AST 64 H Creatine Kinase 25 L NT-Pro-B Natriuret Pep 2310 H Total Protein 6.0 L Albumin 3.2 L Discharge - Discharge Clinical Impression: Respiratory distress, COPD exacerbation, Lower extremity edema, Hypoxia Acute exacerbation of congestive heart failure Qualifiers: Heart failure type: diastolic Qualified Code(s): I50.33 - Acute on chronic diastolic (congestive) heart failure Condition: Stable Disposition: ADMITTED INPATIENT Admitting Provider: Hospitalist Unit Admitted: Telemetry
[2018-03-24 23:14] LABS: VENOUS BLOOD BASE EXCESS 5.1 mmol/L; VENOUS BLOOD HCO3 31.8 mmol/L (20-32); VENOUS BLOOD PH 7.37 (7.30-7.42)
[2018-03-24 23:16] LABS: ABSOLUTE LYMPHOCYTES (AUTO) 2.3 10^3/uL (0.5-4.7); ABSOLUTE MONOCYTES (AUTO) 1.1 10^3/uL (0.1-1.4); BASOPHILS % (AUTO) 0.3 % (0-2); EOSINOPHILS % (AUTO) 0.1 % (0-6); HEMATOCRIT 29.7 % (37.9-51.0); HEMOGLOBIN 9.4 g/dL (13.5-17.0); LYMPHOCYTES % (AUTO) 12.4 % (13-45); MEAN CORPUSCULAR HEMOGLOBIN 25.8 pg (27.0-33.4); MEAN CORPUSCULAR HGB CONC 31.6 g/dL (32.0-36.0); MEAN CORPUSCULAR VOLUME 81 fl (80-97); MONOCYTES % (AUTO) 6.2 % (3-13); PLATELET COUNT 288 10^3/uL (150-450); RED BLOOD COUNT 3.65 10^6/uL (4.35-5.55); RED CELL DISTRIBUTION WIDTH 21.5 % (11.5-14.0); TOTAL CELLS COUNTED % (AUTO) 100 %; WHITE BLOOD COUNT 18.5 10^3/uL (4.0-10.5)
[2018-03-24 23:30] LABS: ALANINE AMINOTRANSFERASE 72 U/L (21-72); ALBUMIN 3.2 g/dL (3.5-5.0); ALKALINE PHOSPHATASE 103 U/L (38-126); ANION GAP 5 (5-19); ASPARTATE AMINO TRANSFERASE 64 U/L (17-59); BILIRUBIN,DIRECT 0.3 mg/dL (0.0-0.4); BILIRUBIN,TOTAL 0.4 mg/dL (0.2-1.3); BLOOD UREA NITROGEN 29 mg/dL (7-20); CALCIUM 8.8 mg/dL (8.4-10.2); CARBON DIOXIDE 35 mmol/L (22-30); CHLORIDE 100 mmol/L (98-107); CREATINE KINASE 25 U/L (55-170); DIGOXIN 1.14 ng/mL (0.8-2.0); GLUCOSE 99 mg/dL (75-110); POTASSIUM 5.1 mmol/L (3.6-5.0); SODIUM 139.5 mmol/L (137-145)
--- NOTE | 2018-03-24 23:31 | RADIOLOGY REPORT (SQ) ---
EXAM DESCRIPTION: CHEST SINGLE VIEW CLINICAL HISTORY: 82 years Male, shortness of breath COMPARISON: March 14, 2018 NUMBER OF VIEWS/TECHNIQUE: 1/AP FINDINGS: Mixed moderate interstitial and mild airspace opacities of the lower lung hernandez, small right pleural effusion, normal cardiac silhouette, right subclavian PICC tip at the cavoatrial junction, median sternotomy, left cardiac stimulation device with leads. No pneumothorax. No acute bone defect. IMPRESSION: No significant change.
[2018-03-24 23:39] LABS: CREATINE KINASE MB 0.93 ng/mL (<4.55); TROPONIN I 0.021 ng/mL
[2018-03-25] MEDS ORDERED: FUROSEMIDE INJ/PF 40 MG/4 ML SDV IV ONE (00:02)
[2018-03-25] MEDS ORDERED: LACTULOSE SYRUP 20 GM/30 ML UDCUP PO ONE (00:08)
[2018-03-25] MEDS ORDERED: HYDRALAZINE HCL INJ/PF 20 MG/1 ML SDV IV PRN (00:08)
[2018-03-25] MEDS ORDERED: CHLORPHENIRAMINE MALEATE 4 MG TABLET PO ONE ×2 (00:08→05:54)
[2018-03-25] MEDS ORDERED: GUAIFENESIN SYRP 200 MG/10 ML UDC PO PRN (00:10)
[2018-03-25] MEDS ORDERED: IPRATROPIUM/ALBUTEROL 0.5-2.5 MG/3 ML AMPUL NEB PRN (00:10)
[2018-03-25] MEDS ORDERED: MEROPENEM 1 GM VIAL IV PRN (01:10)
[2018-03-25] MEDS ORDERED: MEROPENEM 1 GM in NORMAL SALINE 50 ML IV ONE (01:15)
[2018-03-25] MEDS ORDERED: DILTIAZEM HCL 60 MG TABLET PO ONE (01:15)
[2018-03-25] MEDS ORDERED: TAMSULOSIN HCL 0.4 MG CAP.SR.24H PO ONE (02:00)
[2018-03-25] MEDS: IPRATROPIUM/ALBUTEROL 0.5-2.5 MG/3 ML AMPUL NEB SCH ×4 (02:21→20:04)
[2018-03-25] MEDS: HEPARIN SOD (PORCINE) 5,000 UNIT/ML 1 ML SYRINGE SUBCUT SCH ×3 (05:35→22:00)
[2018-03-25] MEDS: DILTIAZEM HCL 60 MG TABLET PO SCH ×3 (05:35→22:01)
[2018-03-25] MEDS: GABAPENTIN 300 MG CAPSULE PO SCH ×3 (05:36→22:01)
--- NOTE | 2018-03-25 05:54 | PDOC H&P ---
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 Chronically ill with acute care hospitalization 33 days of the last 9 weeks. Patient discharged 5 days ago with diagnosis of Acinetobacte, pneumonia sensitive to meropenem. Patient completed 10 day course of meropenem, denying fever chills nausea vomiting or chest pain. Today he presents with shortness of breath and complains of edema. Workup reveals persistent leukocytosis and Imaging reveals a small right-sided pleural effusion and bilateral basal infiltrate suggestive of pneumonia versus atelectasis. Labs also notable for hyperkalemia and chronic anemia. He started on empiric antibiotics and referred to the hospitalist for admission. Past Medical History Cardiac Medical History: Reports: Atrial Fibrillation - Aspirin only due to epistaxis with systemic anticoagulation., Coronary Artery Disease, Myocardial Infarction - 08/2009, Hyperlipidema, Hypertension Denies: DVT, Pulmonary Embolism Pulmonary Medical History: Reports: Bronchitis, Chronic Obstructive Pulmonary Disease (COPD), Pneumonia Denies: Asthma, Sleep Apnea Neurological Medical History: Denies: Seizures Endocrine Medical History: Denies: Diabetes Mellitus Type 1, Diabetes Mellitus Type 2, Hyperthyroidism, Hypothyroidism Malignancy Medical History: Reports: Skin Cancer GI Medical History: Reports: Gastroesophageal Reflux Disease Denies: Cirrhosis, Hepatitis, Hiatal Hernia Musculoskeltal Medical History: Reports: Arthritis Psychiatric Medical History: Reports: Dementia Denies: Depression Hematology: Reports: Anemia Denies: Sickle Cell Disease Infectious Medical History: Reports: Methicillin-Resistant Staph Aureus Denies: Clostridium Difficile Past Surgical History Past Surgical History: Reports: Appendectomy, Coronary Artery Bypass Graft, Orthopedic Surgery - back surgery, Pacemaker Social History Information Source: Patient, Relative, [facility] Records Lives with: Family Smoking Status: Former Smoker Frequency of Alcohol Use: None Hx Recreational Drug Use: No Drugs: None Hx Prescription Drug Abuse: No - Advance Directive Resuscitation Status: Full Code Family History Family History: COPD, Malignancy - Brain tumor Parental Family History Reviewed: Yes Children Family History Reviewed: Yes Sibling(s) Family History Reviewed.: Yes Medication/Allergy Home Medications: Albuterol Sulfate [Proair HFA Inhalation Aerosol 8.5 gm MDI] 1 puff IH Q4HP PRN 03/14/18 Atorvastatin Calcium [Lipitor 80 mg Tablet] 80 mg PO QHS 03/14/18 Budesonide/Formoterol Fumarate [Symbicort HFA 160-4.5 mcg Inhaler 6 gm] 2 puff IH Q12 03/14/18 Digoxin [Lanoxin 0.125 mg Tablet] 0.125 mg PO DAILY 03/14/18 Ascorbic Acid [C-500] 500 mg PO ASDIR PRN #60 tablet.er 03/18/18 Diltiazem HCl [Cardizem 60 mg Tablet] 60 mg PO Q8 #90 tablet 03/18/18 Ferrous Sulfate [Ferosul] 325 mg PO ASDIR #60 tablet 03/18/18 Fluticasone Propionate [Flonase Nasal [place]mer 50 Mcg/[place] 16 gm] 2 spray NASL Q12 spray.pump 03/18/18 Gabapentin [Neurontin 300 mg Capsule] 600 mg PO Q8 #180 capsule 03/18/18 Ipratropium/Albuterol Sulfate [Duoneb 3 ml Ampul] 3 ml NEB RTQ4HP PRN vial.neb 03/18/18 Ipratropium/Albuterol Sulfate [Duoneb 3 ml Ampul] 3 ml NEB [id number] #180 vial.neb 03/18/18 Meropenem [Merrem 500 mg Vial] 500 mg IV Q8 #21 vial 03/18/18 Nebulizer [Aeroneb Go Nebulizer] 1 each MC ASDIR PRN #1 each 03/18/18 Normal Saline [NaCl 0.9% 50 ml IV Soln] 50 ml IV Q8 #21 iv.soln 03/18/18 Prednisone [Deltasone 20 mg Tablet] 20 mg PO ASDIR PRN #15 tablet 03/18/18 Tamsulosin HCl [Flomax 0.4 mg Cap.sr] 0.4 mg PO DAILY #30 cap.sr.24h 03/18/18 Venlafaxine HCl ER [Effexor Xr 37.5 mg Cap.sr] 37.5 mg PO DAILY #30 cap.sr.24h 03/18/18 Allergies/Adverse Reactions: tobramycin Adverse Reaction (Unknown, Verified 03/14/18 04:27) Review of Systems Constitutional: PRESENT: as per HPI, fatigue, weakness. ABSENT: anorexia, chills Eyes: ABSENT: visual disturbances Ears: ABSENT: hearing changes Cardiovascular: PRESENT: as per HPI, dyspnea on exertion, edema, orthropnea. ABSENT: chest pain, palpitations Respiratory: PRESENT: as per HPI, cough, dyspnea. ABSENT: hemoptysis, sputum Gastrointestinal: ABSENT: abdominal pain, constipation, diarrhea, hematemesis, hematochezia, nausea, vomiting Genitourinary: ABSENT: dysuria, hematuria Musculoskeletal: ABSENT: joint swelling Integumentary: ABSENT: rash, wounds Neurological: ABSENT: abnormal gait, abnormal speech, confusion, dizziness, focal weakness, syncope Psychiatric: ABSENT: anxiety, depression, homidical ideation, suicidal ideation Endocrine: ABSENT: cold intolerance, heat intolerance, polydipsia, polyuria Hematologic/Lymphatic: ABSENT: easy bleeding, easy bruising Physical Exam Vital Signs: Temp Pulse Resp BP Pulse Ox 97.6 F 74 16 106/57 L 98 03/25/18 04:11 03/25/18 04:11 03/25/18 04:11 03/25/18 04:11 03/25/18 04:11 Intake & Output 03/23/18 03/24/18 03/25/18 11:59 11:59 11:59 Weight 69.1 kg General appearance: PRESENT: cooperative, disheveled, mild distress, thin, well- developed, well-nourished. ABSENT: obese, severe distress Head exam: PRESENT: atraumatic, normocephalic Eye exam: PRESENT: conjunctiva pink, EOMI, PERRLA. ABSENT: scleral icterus Ear exam: PRESENT: normal external ear exam Mouth exam: PRESENT: moist, tongue midline Neck exam: ABSENT: carotid bruit, JVD, lymphadenopathy, thyromegaly Respiratory exam: PRESENT: accessory muscle use, crackles, prolonged expiratory phas, retraction, rhonchi. ABSENT: tachypnea Cardiovascular exam: PRESENT: RRR. ABSENT: diastolic murmur, rubs, systolic murmur Pulses: PRESENT: normal dorsalis pedis pul Vascular exam: PRESENT: normal capillary refill GI/Abdominal exam: PRESENT: normal bowel sounds, soft. ABSENT: distended, guarding, mass, organolmegaly, rebound, tenderness Rectal exam: PRESENT: deferred Extremities exam: PRESENT: full ROM, pedal edema, +1 edema. ABSENT: calf tenderness, clubbing Neurological exam: PRESENT: alert, awake, oriented to person, oriented to place , oriented to time, oriented to situation, CN II-XII grossly intact. ABSENT: motor sensory deficit Psychiatric exam: PRESENT: appropriate affect, normal mood. ABSENT: homicidal ideation, suicidal ideation Skin exam: PRESENT: dry, intact, warm. ABSENT: cyanosis, rash Results Impressions: Chest X-Ray 03/24/18 22:47 IMPRESSION: No significant change. Assessment & Plan - Diagnosis (1) Acute exacerbation of congestive heart failure Qualifiers: Heart failure type: diastolic Qualified Code(s): I50.33 - Acute on chronic diastolic (congestive) heart failure Is this a current diagnosis for this admission?: Yes Plan: Optimize blood pressure and pulse, gentle diuresis, serial cardiac enzymes. (2) COPD exacerbation Is this a current diagnosis for this admission?: Yes Plan: Flonase, chlorpheniramine, incentive spirometry, flutter valve, albuterol and Atrovent. (3) Lower extremity edema Is this a current diagnosis for this admission?: Yes Plan: KRISTEN stockings and diuresis. (4) Anemia Qualifiers: Anemia type: iron deficiency Iron deficiency anemia type: unspecified iron deficiency Qualified Code(s): D50.9 - Iron deficiency anemia, unspecified Is this a current diagnosis for this admission?: Yes Plan: Iron deficiency anemia, iron of only 18 on last admission, outpatient follow-up for colonoscopy. Continue supplemental iron. (5) Constipation Qualifiers: Constipation type: drug induced constipation Qualified Code(s): K59.03 - Drug induced constipation Is this a current diagnosis for this admission?: Yes Plan: Complicated by iron, bowel regiment initiated (6) Hyperkalemia Is this a current diagnosis for this admission?: Yes Plan: Secondary to constipation, bowel regiment initiated follow-up chemistry. (7) Bronchiectasis Qualifiers: Bronchiectasis type: with acute exacerbation Qualified Code(s): J47.1 - Bronchiectasis with (acute) exacerbation Is this a current diagnosis for this admission?: Yes Plan: With recent Acinetobacter pneumonia. Continue meropenem - Time Time Spent: 50 to 70 Minutes - Inpatient Certification Medical Necessity: Need Close Monitoring Due to Risk of Patient Decompensation
[2018-03-25] MEDS ORDERED: CHLORPHENIRAMINE MALEATE 4 MG TABLET ONE (06:34)
--- NOTE | 2018-03-25 07:49 | EKG REPORT ---
SEVERITY:- ABNORMAL ECG - VENTRICULAR-PACED COMPLEXES PVC NONSPECIFIC ST-T CHANGES : Confirmed by: Tima Rendon MD 25-Mar-2018 07:48:56
[2018-03-25] MEDS: MEROPENEM 1 GM in NORMAL SALINE 50 ML IV SCH ×2 (11:34→19:56)
[2018-03-25] MEDS: DIGOXIN 0.125 MG TABLET PO SCH (11:34)
[2018-03-25] MEDS: FLUTICASONE NASAL SPRAY 50 MCG/SPRY 120 SPRAY/16 GM NASL SCH ×2 (11:34→22:02)
[2018-03-25] MEDS: BUDESONIDE/FORMOTEROL 160-4.5 MCG 60 PUFF/6 GM MDI IH SCH ×2 (11:36→22:02)
[2018-03-25] MEDS: VENLAFAXINE HCL 37.5 MG CAP.SR.24H PO SCH (11:36)
[2018-03-25] MEDS: PSYLLIUM SEED-SF 5.85 GM PACKET PO SCH (11:38)
[2018-03-25] MEDS ORDERED: CLONAZEPAM 1 MG TABLET PO PRN (11:49)
[2018-03-25 13:52] LABS: CREATINE KINASE < 20 U/L (55-170)
[2018-03-25] MEDS: HYDROCODONE/ACETAMINOPHEN 7.5-325 MG TABLET PO PRN (13:55)
[2018-03-25 13:57] LABS: CREATINE KINASE MB 1.04 ng/mL (<4.55); TROPONIN I 0.019 ng/mL
[2018-03-25 14:08] LABS: HEMATOCRIT 28.3 % (37.9-51.0); HEMOGLOBIN 9.2 g/dL (13.5-17.0); MEAN CORPUSCULAR HEMOGLOBIN 26.1 pg (27.0-33.4); MEAN CORPUSCULAR HGB CONC 32.4 g/dL (32.0-36.0); MEAN CORPUSCULAR VOLUME 81 fl (80-97); PLATELET COUNT 264 10^3/uL (150-450); RED BLOOD COUNT 3.52 10^6/uL (4.35-5.55); RED CELL DISTRIBUTION WIDTH 21.5 % (11.5-14.0); WHITE BLOOD COUNT 21.8 10^3/uL (4.0-10.5)
--- NOTE | 2018-03-25 18:35 | Progress Note ---
Provider Note Provider Note: This is an 82-year-old man who has been admitted to the hospital with chest of heart failure exacerbation. He is concurrently being treated with IV meropenem as an outpatient for recent pneumonia. He was admitted after midnight by the hospitalist. He is feeling better. He slept relatively well for a few hours but does still feel tired. His breathing has improved. No fevers or chills. No sputum production. No bleeding. No dysuria. On exam he is lying in his hospital bed, frail and pale appearing. Awake alert and oriented no acute distress. Neck supple without lymphadenopathy, trace bilateral basilar rales, irregularly irregular heart rhythm, non-tachycardic. Abdomen soft nontender nondistended. She has 2+ pitting edema in the distal legs up to the knees. Assessment and plan: Patient has very difficult to treat heart failure. He has A. fib with RVR and has on diltiazem which contributes to hypotension. This makes it hard to diuresis patient, this has been a persistent problem. I have consulted cardiology to assist with optimizing his heart failure and A. fib medications to see if we can more aggressively diurese this patient. COPD is stable and will continue current medications. Will continue the patient's meropenem for a recently diagnosed Acinetobacter pneumonia. Patient has a persistent leukocytosis of not entirely clear etiology. He is not on steroids. Infection is being treated unless there is an undiagnosed infection. Blood cultures are not yet final, I have ordered sputum and urine cultures. This patient has been hospitalized multiple times in the past year. I had a maira discussion, with his permission, about the likelihood that he would qualify for hospice care. Continue the discussion tomorrow.
[2018-03-25 19:58] LABS: ANION GAP 5 (5-19); BLOOD UREA NITROGEN 32 mg/dL (7-20); CALCIUM 9.1 mg/dL (8.4-10.2); CARBON DIOXIDE 36 mmol/L (22-30); CHLORIDE 98 mmol/L (98-107); GLUCOSE 111 mg/dL (75-110); POTASSIUM 5.2 mmol/L (3.6-5.0); SODIUM 139.3 mmol/L (137-145)
[2018-03-25 20:01] LABS: CREATINE KINASE < 20 U/L (55-170)
[2018-03-25 20:11] LABS: CREATINE KINASE MB 0.88 ng/mL (<4.55); TROPONIN I 0.023 ng/mL
--- NOTE | 2018-03-25 20:57 | PDOC CONSULTATION ---
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 Chronically ill with acute care hospitalization 33 days of the last 9 weeks. Patient discharged 5 days ago with diagnosis of Acinetobacte, pneumonia sensitive to meropenem. Patient completed 10 day course of meropenem, denying fever chills nausea vomiting or chest pain. Today he presents with shortness of breath and complains of edema. Workup reveals persistent leukocytosis and Imaging reveals a small right-sided pleural effusion and bilateral basal infiltrate suggestive of pneumonia versus atelectasis. Labs also notable for hyperkalemia and chronic anemia. He started on empiric antibiotics and referred to the hospitalist for admission. This history obtained by the hospitalist was reviewed and confirmed. When examined patient noted to be quite concerned about his recurrent admission. He claims to be short of breath and also complains of significant pedal edema. He is somewhat upset that the diuretic response is not fast enough. Patient has also been noted to have intermittently low blood pressure. This is causing some difficulty with adjustment of diuretic therapy. Patient main concern would be to get his edema relieved and shortness of breath relieved. She is currently a DNR. Patient's at bedside. Past Medical History Cardiac Medical History: Reports: Atrial Fibrillation - Aspirin only due to epistaxis with systemic anticoagulation., Coronary Artery Disease, Myocardial Infarction - 08/2009, Hyperlipidema, Hypertension Denies: DVT, Pulmonary Embolism Pulmonary Medical History: Reports: Bronchitis, Chronic Obstructive Pulmonary Disease (COPD), Pneumonia Denies: Asthma, Sleep Apnea Neurological Medical History: Denies: Seizures Endocrine Medical History: Denies: Diabetes Mellitus Type 1, Diabetes Mellitus Type 2, Hyperthyroidism, Hypothyroidism Malignancy Medical History: Reports: Skin Cancer GI Medical History: Reports: Gastroesophageal Reflux Disease Denies: Cirrhosis, Hepatitis, Hiatal Hernia Musculoskeltal Medical History: Reports: Arthritis Psychiatric Medical History: Reports: Dementia Denies: Depression Hematology: Reports: Anemia Denies: Sickle Cell Disease Infectious Medical History: Reports: Methicillin-Resistant Staph Aureus Denies: Clostridium Difficile Past Surgical History Past Surgical History: Reports: Appendectomy, Coronary Artery Bypass Graft, Orthopedic Surgery - back surgery, Pacemaker Social History Information Source: Patient Lives with: Spouse/Significant other Smoking Status: Former Smoker Frequency of Alcohol Use: None Hx Recreational Drug Use: No Drugs: None Hx Prescription Drug Abuse: No - Advance Directive Resuscitation Status: Full Code Surrogate healthcare decision maker:: Patient's is the surrogate decision-maker Family History Family History: COPD, Malignancy - Brain tumor Parental Family History Reviewed: Yes Children Family History Reviewed: Yes Sibling(s) Family History Reviewed.: Yes Medication/Allergy Home Medications: Budesonide/Formoterol Fumarate [Symbicort 160-4.5 Mcg Inhaler] 2 puff IH Q12 Clonazepam [Klonopin] 0.5 mg PO Q8 03/25/18 Diltiazem HCl [Cardizem 60 mg Tablet] 60 mg PO Q8 03/25/18 Furosemide [Lasix 20 mg Tablet] 10 mg PO DAILY 03/25/18 Gabapentin [Neurontin 300 mg Capsule] 600 mg PO Q8 03/25/18 Hydrocodone/Acetaminophen [Hydrocodone-Acetamin 7.5-325] 1 tab PO Q8HP PRN 03/25 Tamsulosin HCl [Flomax 0.4 mg Cap.sr] 0.4 mg PO DAILY 03/25/18 Venlafaxine HCl ER [Effexor Xr 37.5 mg Cap.sr] 37.5 mg PO DAILY 03/25/18 Allergies/Adverse Reactions: tobramycin Adverse Reaction (Unknown, Verified 03/14/18 04:27) Review of Systems Review of Systems: Please see history of present illness and past medical history as wall. Constitutional: Intermittent low-grade fever or chills reported. Head : No recent chronic headaches, recent head injury. Eyes: No recent eye pain, diplopia, redness, discharge, acute visual changes. Ears: No recent chronic ear pain, acute hearing loss, ear discharge. Oral cavity: No recent ulcerations, bleeding, oral cavity discomfort. Neck: No recent acute neck pain reported. Hematologic: No recent easy bruising or bleeding. Lymphatic: No recent lymph node enlargement reported. Cardiovascular system review: See history of present illness. Denies chest pain. Denies recent syncope. Respiratory system review: No hemoptysis or blood clots in the lungs reported. Mild Shortness of breath on exertion. History of recurrent pneumonia. Gastrointestinal system review: Negative for any recent acute hematemesis, melena. Genitourinary system review: No recent acute or chronic hematuria, flank pain, UTI etc. reported. Skin system review: Negative for any recent abnormal bruising, no rash, no pruritus reported. Neurologic: No prior history of strokes, mini strokes, seizure disorder. Psychologic: No history of major psychosis or major depression reported. Minor depression reported. Musculoskeletal: Minor aches and pains reported. No acute joint swelling reported. Endocrine: No recent polyuria, polydipsia, recent heat or cold intolerance. Physical Exam Vital Signs: Temp Pulse Resp BP Pulse Ox 98.5 F 87 18 109/53 L 99 03/25/18 20:00 03/25/18 20:05 03/25/18 20:05 03/25/18 20:00 03/25/18 20:05 Intake & Output 03/24/18 03/25/18 03/26/18 06:59 06:59 06:59 Intake Total 200 458 Output Total 500 525 Balance -300 -67 Weight 67.5 kg Exam: GENERAL: well-nourished and in no acute distress. Alert and oriented x3 HEAD: Atraumatic, normocephalic. EYES: Pupils equal round and reactive to light, extraocular movements intact, sclera anicteric, conjunctiva are normal. ENT: TMs normal, nares patent, oropharynx clear without exudates. Moist mucous membranes. No oral ulcerations or bleeding gums noted NECK: supple without lymphadenopathy. Trachea is central. No cervical or axillary lymphadenopathy noted. Carotids are 2+, JVD 10 cm LUNGS: Respiration seems nonlabored, no significant accessory muscle action noted. Bibasilar fine crackles and scattered bilateral wheezes rales or rhonchi noted. No significant dullness noted on percussion. CHEST: Palpation of the chest wall shows no significant chest wall tenderness. 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 ABDOMEN: Soft, no significant tenderness appreciated, normoactive bowel sounds. No guarding, no rebound. No rigidity noted . No masses appreciated. EXTREMITIES: Pedal pulses are 1-2+, no calf tenderness noted. No clubbing or cyanosis. 2+ pedal edema noted NEUROLOGICAL: Focused neurological exam showed no significant neurologic deficit. Normal speech, no focal weakness appreciated. PSYCH: Normal mood, normal affect. Judgment and insight within normal limits. SKIN: No significant ecchymosis, skin is noted to be warm. MUSCULOSKELETAL EXAM: No significant acute joint swelling noted. Results Laboratory Results: 03/25/18 13:47 03/25/18 19:35 03/25/18 03/25/18 03/25/18 13:04 13:47 19:35 WBC 21.8 H RBC 3.52 L Hgb 9.2 L Hct 28.3 L MCV 81 MCH 26.1 L MCHC 32.4 RDW 21.5 H Plt Count 264 Sodium 139.3 Potassium 5.2 H Chloride 98 Carbon Dioxide 36 H Anion Gap 5 BUN 32 H Creatinine 0.79 Est GFR ( Amer) > 60 Est GFR (Non-Af Amer) > 60 Glucose 111 H Calcium 9.1 Magnesium 2.0 03/25/18 03/25/18 03/25/18 13:04 13:04 19:35 Creatine Kinase < 20 L < 20 L CK-MB (CK-2) 1.04 Troponin I 0.019 03/25/18 19:35 Creatine Kinase CK-MB (CK-2) 0.88 Troponin I 0.023 EKG Comments: Atrial fibrillation with intermittent ventricular paced beats Impressions: Chest X-Ray 03/24/18 22:47 IMPRESSION: No significant change. Assessment & Plan - Diagnosis (1) Acute on chronic diastolic heart failure Is this a current diagnosis for this admission?: Yes (2) COPD exacerbation Is this a current diagnosis for this admission?: Yes (3) Hypotension Is this a current diagnosis for this admission?: Yes (4) Lower extremity edema Is this a current diagnosis for this admission?: Yes (5) Atrial fibrillation Qualifiers: Atrial fibrillation type: chronic Qualified Code(s): I48.2 - Chronic atrial fibrillation (6) CAD (coronary artery disease) Qualifiers: Coronary Disease-Associated Artery/Lesion type: [place] artery Is this a current diagnosis for this admission?: Yes (7) HLD (hyperlipidemia) Qualifiers: Hyperlipidemia type: unspecified Qualified Code(s): E78.5 - Hyperlipidemia , unspecified Is this a current diagnosis for this admission?: Yes (8) HTN (hypertension) Qualifiers: Hypertension type: essential hypertension Is this a current diagnosis for this admission?: Yes (9) Cardiac pacemaker in situ Is this a current diagnosis for this admission?: Yes - Notes Notes: Placed patient on torsemide 20 mg p.o. daily and also Midodrin 2.5 mg p.o. 3 times daily. Patient will benefit from support stockings, CHF pathway education. Patient is also requesting pulmonary consultation by Dr. Red. Acute on chronic diastolic heart failure: Patient may actually have also component of right heart failure. Will start patient on torsemide 20 mg p.o. daily. Monitor electrolytes and renal functions. COPD exacerbation: Continue current management plans. Hypotension: Have placed patient on Midodrin so that we can use diuretics. Lower extremity edema: Mostly related to right-sided heart failure but contribution from venous insufficiency and dependency also there. Will monitor central blood volume closely. Atrial fibrillation: Currently rate is well controlled. Patient has underlying pacemaker. Considered a borderline candidate for chronic anticoagulation. Coronary artery disease: Currently without any symptoms of angina or angina equivalent symptoms. Hyperlipidemia: Continue statin therapy. Hypertension: Currently patient noted to have relatively low blood pressure. However patient mentating well. Cardiac pacemaker in situ: Currently functioning adequately. - Time Time Spent: 30 to 50 Minutes - CODE STATUS : was discussed, patient remains DO NOT RESUSCITATE. Surrogate decision-maker unchanged. Multiple medical problems were addressed. More than 50% of the time spent coordinating care, discussing management plans with involved caregivers. Management plans discussed with involved personnels. Medical decision making was of moderate to high complexity, patient's has multiple comorbidities. Medications reviewed and adjusted accordingly: Yes
[2018-03-25] MEDS: ATORVASTATIN CALCIUM 80 MG TABLET PO SCH (22:01)
[2018-03-26] MEDS: MEROPENEM 1 GM in NORMAL SALINE 50 ML IV SCH ×3 (01:32→20:27)
[2018-03-26] MEDS: IPRATROPIUM/ALBUTEROL 0.5-2.5 MG/3 ML AMPUL NEB SCH ×4 (02:09→19:59)
[2018-03-26 04:40] LABS: ABSOLUTE LYMPHOCYTES (AUTO) 1.3 10^3/uL (0.5-4.7); ABSOLUTE MONOCYTES (AUTO) 0.8 10^3/uL (0.1-1.4); BASOPHILS % (AUTO) 0.1 % (0-2); HEMATOCRIT 27.6 % (37.9-51.0); HEMOGLOBIN 8.7 g/dL (13.5-17.0); LYMPHOCYTES % (AUTO) 8.8 % (13-45); MEAN CORPUSCULAR HEMOGLOBIN 25.7 pg (27.0-33.4); MEAN CORPUSCULAR HGB CONC 31.7 g/dL (32.0-36.0); MEAN CORPUSCULAR VOLUME 81 fl (80-97); MONOCYTES % (AUTO) 5.2 % (3-13); PLATELET COUNT 270 10^3/uL (150-450); RED CELL DISTRIBUTION WIDTH 22.2 % (11.5-14.0); SEGMENTED NEUTROPHILS % (AUTO) 85.9 % (42-78); TOTAL CELLS COUNTED % (AUTO) 100 %; WHITE BLOOD COUNT 15.1 10^3/uL (4.0-10.5)
[2018-03-26 04:50] LABS: BLOOD UREA NITROGEN 29 mg/dL (7-20); CALCIUM 8.9 mg/dL (8.4-10.2); CARBON DIOXIDE 37 mmol/L (22-30); CHLORIDE 99 mmol/L (98-107); GLUCOSE 115 mg/dL (75-110); POTASSIUM 4.5 mmol/L (3.6-5.0)
[2018-03-26 04:56] LABS: SODIUM 139.1 mmol/L (137-145)
[2018-03-26 04:59] LABS: ANION GAP 3 (5-19)
[2018-03-26 05:03] LABS: CREATINE KINASE MB 0.68 ng/mL (<4.55); TROPONIN I 0.024 ng/mL
[2018-03-26] MEDS: DILTIAZEM HCL 60 MG TABLET PO SCH ×3 (05:38→21:43)
[2018-03-26] MEDS: HEPARIN SOD (PORCINE) 5,000 UNIT/ML 1 ML SYRINGE SUBCUT SCH ×3 (05:38→21:43)
[2018-03-26] MEDS: GABAPENTIN 300 MG CAPSULE PO SCH ×3 (05:38→21:43)
[2018-03-26] MEDS ORDERED: FUROSEMIDE 20 MG TABLET PO SCH (10:00)
[2018-03-26] MEDS: TORSEMIDE 20 MG TABLET PO SCH (11:43)
[2018-03-26] MEDS: TAMSULOSIN HCL 0.4 MG CAP.SR.24H PO SCH (11:45)
[2018-03-26] MEDS: DIGOXIN 0.125 MG TABLET PO SCH (11:46)
[2018-03-26] MEDS: FLUTICASONE NASAL SPRAY 50 MCG/SPRY 120 SPRAY/16 GM NASL SCH ×2 (11:47→21:43)
[2018-03-26] MEDS: BUDESONIDE/FORMOTEROL 160-4.5 MCG 60 PUFF/6 GM MDI IH SCH ×2 (11:48→21:43)
[2018-03-26] MEDS: MIDODRINE HCL 5 MG TABLET PO SCH ×3 (11:48→20:26)
[2018-03-26] MEDS: VENLAFAXINE HCL 37.5 MG CAP.SR.24H PO SCH (11:51)
[2018-03-26] MEDS: PSYLLIUM SEED-SF 5.85 GM PACKET PO SCH (11:52)
[2018-03-26] MEDS: HYDROCODONE/ACETAMINOPHEN 7.5-325 MG TABLET PO PRN ×2 (13:44→21:44)
--- NOTE | 2018-03-26 17:34 | PDOC PROGRESS REPORT ---
Subjective Progress Note for:: 03/26/18 Subjective:: Patient breathing well today. His swelling has not really changed much. He slept well last night. No anxiety. No acute pain. No chest pain. Patient and I had a long discussion today about hospice. His daughter and and son- in-law were present. Reason For Visit: COPD EXACERBATION PNEUMONIA Physical Exam Vital Signs: Temp Pulse Resp BP Pulse Ox 97.7 F 80 16 94/49 L 99 03/26/18 12:00 03/26/18 14:08 03/26/18 14:08 03/26/18 12:00 03/26/18 14:08 Intake & Output 03/25/18 03/26/18 03/27/18 06:59 06:59 06:59 Intake Total 200 726 Output Total 500 775 Balance -300 -49 Weight 67.5 kg 76.1 kg General appearance: PRESENT: no acute distress Head exam: PRESENT: atraumatic, normocephalic Eye exam: PRESENT: conjunctiva pink. ABSENT: scleral icterus Mouth exam: PRESENT: moist, neck supple, tongue midline Respiratory exam: PRESENT: decreased breath sounds, rales, unlabored, wheezes Pulses: PRESENT: normal radial pulses GI/Abdominal exam: PRESENT: normal bowel sounds, soft. ABSENT: distended, guarding, tenderness Rectal exam: PRESENT: deferred Extremities exam: PRESENT: pedal edema, +2 edema. ABSENT: calf tenderness Musculoskeletal exam: PRESENT: ambulatory Neurological exam: PRESENT: alert, awake, oriented to person, oriented to place , oriented to situation, CN II-XII grossly intact Psychiatric exam: PRESENT: anxious. ABSENT: appropriate affect Skin exam: PRESENT: dry, warm Results Laboratory Results: 03/26/18 04:14 03/26/18 04:14 03/25/18 03/26/18 03/26/18 19:35 04:14 04:14 WBC 15.1 H RBC 3.40 L Hgb 8.7 L Hct 27.6 L MCV 81 MCH 25.7 L MCHC 31.7 L RDW 22.2 H Plt Count 270 Seg Neutrophils % 85.9 H Lymphocytes % 8.8 L Monocytes % 5.2 Eosinophils % 0.0 Basophils % 0.1 Absolute Neutrophils 13.0 H Absolute Lymphocytes 1.3 Absolute Monocytes 0.8 Absolute Eosinophils 0.0 Absolute Basophils 0.0 Sodium 139.3 139.1 Potassium 5.2 H 4.5 Chloride 98 99 Carbon Dioxide 36 H 37 H Anion Gap 5 3 L BUN 32 H 29 H Creatinine 0.79 0.71 Est GFR ( Amer) > 60 > 60 Est GFR (Non-Af Amer) > 60 > 60 Glucose 111 H 115 H Calcium 9.1 8.9 03/25/18 03/25/18 03/25/18 13:04 13:04 19:35 Creatine Kinase < 20 L < 20 L CK-MB (CK-2) 1.04 Troponin I 0.019 03/25/18 03/26/18 03/26/18 19:35 04:14 04:14 Creatine Kinase < 20 L CK-MB (CK-2) 0.88 0.68 Troponin I 0.023 0.024 Impressions: Chest X-Ray 03/24/18 22:47 IMPRESSION: No significant change. Assessment & Plan - Diagnosis (1) Hypotension Is this a current diagnosis for this admission?: Yes Plan: Heart failure and medication related. Dr. Mccall started him on midodrine today. We hope to bring his blood pressure up so that we could more effectively diurese him. Will monitor closely. (2) Acute exacerbation of congestive heart failure Qualifiers: Heart failure type: diastolic Qualified Code(s): I50.33 - Acute on chronic diastolic (congestive) heart failure Is this a current diagnosis for this admission?: Yes Plan: I have consulted Dr. Mccall to assist with diuresis and medication optimization. (3) COPD exacerbation Is this a current diagnosis for this admission?: Yes Plan: Patient seems stable from this perspective. Will continue current plan and monitor him closely. (4) Anxiety Is this a current diagnosis for this admission?: Yes Plan: She has intermittent anxiety related to dyspnea and also due to the hospitalization. He has as needed benzodiazepine available, he uses this at home from time to time. (5) Atrial fibrillation with RVR Is this a current diagnosis for this admission?: Yes Plan: Patient's heart rate has been controlled. Will continue current diltiazem dosing. He is not on anticoagulation secondary to bleeding risks. (6) CAD (coronary artery disease) Qualifiers: Coronary Disease-Associated Artery/Lesion type: [place] artery Is this a current diagnosis for this admission?: Yes Plan: Stable. Continue current cardiac medications. - Time Time Spent with patient: 35 or more minutes Medications reviewed and adjusted accordingly: Yes Anticipated discharge: Home with Homehealth - Inpatient Certification Based on my medical assessment, after consideration of the patient's comorbidities, presenting symptoms, or acuity I expect that the services needed warrant INPATIENT care.: Yes I certify that my determination is in accordance with my understanding of Medicare's requirements for reasonable and necessary INPATIENT services [42 CFR 412.3e].: Yes Medical Necessity: Significant Comorbidiites Make Outpatient Treatment Too Risky , Need Close Monitoring Due to Risk of Patient Decompensation, Risk of Complication if Not Cared For in Hospital
--- NOTE | 2018-03-26 18:28 | PDOC PROGRESS REPORT ---
Subjective Progress Note for:: 03/26/18 Subjective:: Patient seems to be doing better with gradual improvement. Breathing better but still has pedal edema. Pt is denying any chest arm or neck discomfort. Patient denying any PND, orthopnea. Patient denied any sustained palpitations, dizziness, syncope, near syncope. Patient denying any fever chills. Patient denying any other significant discomfort. Patient is maintaining atrial fibrillation with intermittent ventricular paced beats. Review of systems: Rest review of systems negative. Medications: Medications have been reviewed. Reason For Visit: COPD EXACERBATION PNEUMONIA Physical Exam Vital Signs: Temp Pulse Resp BP Pulse Ox 97.8 F 75 18 86/58 L 98 03/26/18 16:34 03/26/18 16:34 03/26/18 16:34 03/26/18 16:34 03/26/18 16:34 Intake & Output 03/25/18 03/26/18 03/27/18 06:59 06:59 06:59 Intake Total 200 726 Output Total 500 775 Balance -300 -49 Weight 67.5 kg 76.1 kg Exam: GENERAL: well-nourished and in no acute distress. Alert and oriented x3 HEAD: Atraumatic, normocephalic. EYES: Pupils equal round and reactive to light, extraocular movements intact, sclera anicteric, conjunctiva are normal. ENT: TMs normal, nares patent, oropharynx clear without exudates. Moist mucous membranes. No oral ulcerations or bleeding gums noted NECK: supple without lymphadenopathy. Trachea is central. No cervical or axillary lymphadenopathy noted. Carotids are 2+, JVD 8-10 cm LUNGS: Respiration seems nonlabored, no significant accessory muscle action noted. Bibasilar fine crackles and few a scattered wheezes rales or rhonchi noted. No significant dullness noted on percussion. CHEST: Palpation of the chest wall shows no significant chest wall tenderness. 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 ABDOMEN: Soft, no significant tenderness appreciated, normoactive bowel sounds. No guarding, no rebound. No rigidity noted . No masses appreciated. EXTREMITIES: Pedal pulses are 1-2+, no calf tenderness noted. No clubbing or cyanosis. 2+ pedal edema noted NEUROLOGICAL: Focused neurological exam showed no significant neurologic deficit. Normal speech, no focal weakness appreciated. PSYCH: Normal mood, normal affect. Judgment and insight within normal limits. SKIN: No significant ecchymosis, skin is noted to be warm. MUSCULOSKELETAL EXAM: No significant acute joint swelling noted. Results Laboratory Results: 03/26/18 04:14 03/26/18 04:14 03/25/18 03/26/18 03/26/18 19:35 04:14 04:14 WBC 15.1 H RBC 3.40 L Hgb 8.7 L Hct 27.6 L MCV 81 MCH 25.7 L MCHC 31.7 L RDW 22.2 H Plt Count 270 Seg Neutrophils % 85.9 H Lymphocytes % 8.8 L Monocytes % 5.2 Eosinophils % 0.0 Basophils % 0.1 Absolute Neutrophils 13.0 H Absolute Lymphocytes 1.3 Absolute Monocytes 0.8 Absolute Eosinophils 0.0 Absolute Basophils 0.0 Sodium 139.3 139.1 Potassium 5.2 H 4.5 Chloride 98 99 Carbon Dioxide 36 H 37 H Anion Gap 5 3 L BUN 32 H 29 H Creatinine 0.79 0.71 Est GFR ( Amer) > 60 > 60 Est GFR (Non-Af Amer) > 60 > 60 Glucose 111 H 115 H Calcium 9.1 8.9 03/25/18 03/25/18 03/25/18 13:04 13:04 19:35 Creatine Kinase < 20 L < 20 L CK-MB (CK-2) 1.04 Troponin I 0.019 03/25/18 03/26/18 03/26/18 19:35 04:14 04:14 Creatine Kinase < 20 L CK-MB (CK-2) 0.88 0.68 Troponin I 0.023 0.024 EKG Comments: Telemetry shows atrial fibrillation with intermittent ventricular paced beats Impressions: Chest X-Ray 03/24/18 22:47 IMPRESSION: No significant change. Assessment & Plan - Diagnosis (1) Acute on chronic diastolic heart failure Is this a current diagnosis for this admission?: Yes (2) COPD exacerbation Is this a current diagnosis for this admission?: Yes (3) Hypotension Is this a current diagnosis for this admission?: Yes (4) Lower extremity edema Is this a current diagnosis for this admission?: Yes (5) Atrial fibrillation Qualifiers: Atrial fibrillation type: chronic Qualified Code(s): I48.2 - Chronic atrial fibrillation (6) CAD (coronary artery disease) Qualifiers: Coronary Disease-Associated Artery/Lesion type: [place] artery Is this a current diagnosis for this admission?: Yes (7) HLD (hyperlipidemia) Qualifiers: Hyperlipidemia type: unspecified Qualified Code(s): E78.5 - Hyperlipidemia , unspecified Is this a current diagnosis for this admission?: Yes (8) HTN (hypertension) Qualifiers: Hypertension type: essential hypertension Is this a current diagnosis for this admission?: Yes (9) Cardiac pacemaker in situ Is this a current diagnosis for this admission?: Yes - Notes Notes: Acute on chronic diastolic heart failure: Continue patient on torsemide 20 mg p.o. daily. Monitor electrolytes and renal functions. COPD exacerbation: Continue current management plans. Hypotension: Have placed patient on Midodrin so that we can use diuretics. Patient on Midodrin 5 mg p.o. twice daily. Blood pressures are stable. Lower extremity edema: Mostly related to right-sided heart failure but contribution from venous insufficiency and dependency also there. Will monitor central blood volume closely. Atrial fibrillation: Currently rate is well controlled. Patient has underlying pacemaker. Considered a borderline candidate for chronic anticoagulation. Coronary artery disease: Currently without any symptoms of angina or angina equivalent symptoms. Hyperlipidemia: Continue statin therapy. Hypertension: Currently patient noted to have relatively low blood pressure. However patient mentating well. Cardiac pacemaker in situ: Currently functioning adequately. - Time Time with patient: Greater than 35 minutes - CODE STATUS : was discussed, patient remains DO NOT RESUSCITATE. Surrogate decision-maker unchanged. Multiple medical problems were addressed. More than 50% of the time spent coordinating care, discussing management plans with involved caregivers. Management plans discussed with involved personnels. Medical decision making was of moderate to high complexity, patient's has multiple comorbidities. Medications reviewed and adjusted accordingly: Yes
[2018-03-26] MEDS: ATORVASTATIN CALCIUM 80 MG TABLET PO SCH (21:43)
[2018-03-27] MEDS: IPRATROPIUM/ALBUTEROL 0.5-2.5 MG/3 ML AMPUL NEB SCH ×4 (02:30→19:55)
[2018-03-27] MEDS: MEROPENEM 1 GM in NORMAL SALINE 50 ML IV SCH ×3 (03:24→18:05)
[2018-03-27 05:50] LABS: ABSOLUTE EOSINOPHILS # (AUTO) 0.1 10^3/uL (0.0-0.6); ABSOLUTE LYMPHOCYTES (AUTO) 2.5 10^3/uL (0.5-4.7); ABSOLUTE MONOCYTES (AUTO) 1.2 10^3/uL (0.1-1.4); ABSOLUTE NEUT (AUTO) 9.7 10^3/uL (1.7-8.2); BASOPHILS % (AUTO) 0.2 % (0-2); HEMATOCRIT 27.8 % (37.9-51.0); HEMOGLOBIN 9.1 g/dL (13.5-17.0); LYMPHOCYTES % (AUTO) 18.1 % (13-45); MEAN CORPUSCULAR HEMOGLOBIN 26.4 pg (27.0-33.4); MEAN CORPUSCULAR HGB CONC 32.5 g/dL (32.0-36.0); MEAN CORPUSCULAR VOLUME 81 fl (80-97); MONOCYTES % (AUTO) 9.2 % (3-13); PLATELET COUNT 302 10^3/uL (150-450); RED BLOOD COUNT 3.42 10^6/uL (4.35-5.55); SEGMENTED NEUTROPHILS % (AUTO) 71.5 % (42-78); TOTAL CELLS COUNTED % (AUTO) 100 %; WHITE BLOOD COUNT 13.6 10^3/uL (4.0-10.5)
[2018-03-27 06:09] LABS: ANION GAP 6 (5-19); BLOOD UREA NITROGEN 29 mg/dL (7-20); CALCIUM 8.5 mg/dL (8.4-10.2); CARBON DIOXIDE 39 mmol/L (22-30); CHLORIDE 97 mmol/L (98-107); GLUCOSE 80 mg/dL (75-110); SODIUM 142.4 mmol/L (137-145)
[2018-03-27] MEDS: DILTIAZEM HCL 60 MG TABLET PO SCH ×3 (06:56→21:20)
[2018-03-27] MEDS: GABAPENTIN 300 MG CAPSULE PO SCH ×3 (06:56→21:20)
[2018-03-27] MEDS: HEPARIN SOD (PORCINE) 5,000 UNIT/ML 1 ML SYRINGE SUBCUT SCH ×3 (06:56→21:21)
[2018-03-27] MEDS: HYDROCODONE/ACETAMINOPHEN 7.5-325 MG TABLET PO PRN ×2 (10:44→21:20)
[2018-03-27] MEDS: VENLAFAXINE HCL 37.5 MG CAP.SR.24H PO SCH (10:45)
[2018-03-27] MEDS: MIDODRINE HCL 5 MG TABLET PO SCH ×3 (10:45→18:05)
[2018-03-27] MEDS: PSYLLIUM SEED-SF 5.85 GM PACKET PO SCH (10:45)
[2018-03-27] MEDS: TORSEMIDE 20 MG TABLET PO SCH (10:46)
[2018-03-27] MEDS: DIGOXIN 0.125 MG TABLET PO SCH (10:46)
[2018-03-27] MEDS: TAMSULOSIN HCL 0.4 MG CAP.SR.24H PO SCH (10:46)
[2018-03-27] MEDS: FLUTICASONE NASAL SPRAY 50 MCG/SPRY 120 SPRAY/16 GM NASL SCH ×2 (10:47→21:20)
[2018-03-27] MEDS: BUDESONIDE/FORMOTEROL 160-4.5 MCG 60 PUFF/6 GM MDI IH SCH ×2 (10:47→21:20)
--- NOTE | 2018-03-27 14:28 | PDOC PROGRESS REPORT ---
Subjective Progress Note for:: 03/27/18 Subjective:: Patient seems to be doing better with gradual improvement. Patient is quite happy with diuresis yesterday and today. His leg swelling is less, breathing is more comfortable Pt is denying any chest arm or neck discomfort. Patient denying any PND, orthopnea. Patient denied any sustained palpitations, dizziness, syncope, near syncope. Patient denying any fever chills. Patient denying any other significant discomfort. Patient is maintaining atrial fibrillation with intermittent ventricular paced beats. Review of systems: Rest review of systems negative. Medications: Medications have been reviewed. Reason For Visit: COPD EXACERBATION PNEUMONIA Physical Exam Vital Signs: Temp Pulse Resp BP Pulse Ox 97.7 F 84 16 99/62 L 96 03/27/18 08:23 03/27/18 13:21 03/27/18 13:21 03/27/18 08:23 03/27/18 13:21 Intake & Output 03/26/18 03/27/18 03/28/18 06:59 06:59 06:59 Intake Total 726 815 Output Total 775 800 Balance -49 15 Weight 76.1 kg 74.3 kg Exam: GENERAL: well-nourished and in no acute distress. Alert and oriented x3 HEAD: Atraumatic, normocephalic. EYES: Pupils equal round and reactive to light, extraocular movements intact, sclera anicteric, conjunctiva are normal. ENT: TMs normal, nares patent, oropharynx clear without exudates. Moist mucous membranes. No oral ulcerations or bleeding gums noted NECK: supple without lymphadenopathy. Trachea is central. No cervical or axillary lymphadenopathy noted. Carotids are 2+, JVD 8-10 cm LUNGS: Respiration seems nonlabored, no significant accessory muscle action noted. Bibasilar fine crackles with few scattered wheezes rales or rhonchi noted. No significant dullness noted on percussion. CHEST: Palpation of the chest wall shows no significant chest wall tenderness. HEART: [place] TEAM COORDINATOR, No PSH, 1/6 BROOKS aortic area, 1/6 [place] systolic murmur mitral area, no rubs, no gallops. ABDOMEN: Soft, no significant tenderness appreciated, normoactive bowel sounds. No guarding, no rebound. No rigidity noted . No masses appreciated. EXTREMITIES: Pedal pulses are 1-2+, no calf tenderness noted. No clubbing or cyanosis. 1-2+ pedal edema noted NEUROLOGICAL: Focused neurological exam showed no significant neurologic deficit. Normal speech, no focal weakness appreciated. PSYCH: Normal mood, normal affect. Judgment and insight within normal limits. SKIN: No significant ecchymosis, skin is noted to be warm. MUSCULOSKELETAL EXAM: No significant acute joint swelling noted. Results Laboratory Results: 03/27/18 04:49 03/27/18 04:49 03/27/18 03/27/18 04:49 04:49 WBC 13.6 H RBC 3.42 L Hgb 9.1 L Hct 27.8 L MCV 81 MCH 26.4 L MCHC 32.5 RDW 22.0 H Plt Count 302 Seg Neutrophils % 71.5 Lymphocytes % 18.1 Monocytes % 9.2 Eosinophils % 1.0 Basophils % 0.2 Absolute Neutrophils 9.7 H Absolute Lymphocytes 2.5 Absolute Monocytes 1.2 Absolute Eosinophils 0.1 Absolute Basophils 0.0 Sodium 142.4 Potassium 4.0 Chloride 97 L Carbon Dioxide 39 H Anion Gap 6 BUN 29 H Creatinine 0.89 Est GFR ( Amer) > 60 Est GFR (Non-Af Amer) > 60 Glucose 80 Calcium 8.5 03/25/18 03/25/18 03/25/18 13:04 13:04 19:35 Creatine Kinase < 20 L < 20 L CK-MB (CK-2) 1.04 Troponin I 0.019 03/25/18 03/26/18 03/26/18 19:35 04:14 04:14 Creatine Kinase < 20 L CK-MB (CK-2) 0.88 0.68 Troponin I 0.023 0.024 EKG Comments: Atrial fibrillation with controlled ventricular response and intermittent ventricular paced beats Impressions: Chest X-Ray 03/24/18 22:47 IMPRESSION: No significant change. Assessment & Plan - Diagnosis (1) Acute on chronic diastolic heart failure Is this a current diagnosis for this admission?: Yes (2) COPD exacerbation Is this a current diagnosis for this admission?: Yes (3) Hypotension Is this a current diagnosis for this admission?: Yes (4) Lower extremity edema Is this a current diagnosis for this admission?: Yes (5) Atrial fibrillation Qualifiers: Atrial fibrillation type: chronic Qualified Code(s): I48.2 - Chronic atrial fibrillation (6) CAD (coronary artery disease) Qualifiers: Coronary Disease-Associated Artery/Lesion type: [place] artery Is this a current diagnosis for this admission?: Yes (7) HLD (hyperlipidemia) Qualifiers: Hyperlipidemia type: unspecified Qualified Code(s): E78.5 - Hyperlipidemia , unspecified Is this a current diagnosis for this admission?: Yes (8) HTN (hypertension) Qualifiers: Hypertension type: essential hypertension Qualified Code(s): I10 - Essential (primary) hypertension Is this a current diagnosis for this admission?: Yes (9) Cardiac pacemaker in situ Is this a current diagnosis for this admission?: Yes - Notes Notes: Acute on chronic diastolic heart failure: Continue patient on torsemide 20 mg p.o. daily. Monitor electrolytes and renal functions. Consider reducing to 10 mg p.o. daily once edema subsides. COPD exacerbation: Continue current management plans. Hypotension: Have placed patient on Midodrin so that we can use diuretics. Continue patient on Midodrin 5 mg p.o. twice daily. Blood pressures are stable. Lower extremity edema: Mostly related to right-sided heart failure but contribution from venous insufficiency and dependency also there. Will monitor central blood volume closely. Atrial fibrillation: Currently rate is well controlled. Patient has underlying pacemaker. Considered a borderline candidate for chronic anticoagulation. Coronary artery disease: Currently without any symptoms of angina or angina equivalent symptoms. Hyperlipidemia: Continue statin therapy. Hypertension: Currently patient noted to have relatively low blood pressure but seems to have stabilized now. However patient mentating well. Cardiac pacemaker in situ: Currently functioning adequately. - Time Time with patient: Greater than 35 minutes - CODE STATUS was discussed, patient remains DNR. Surrogate decision-maker unchanged. Multiple medical problems were addressed. More than 50% of the time spent coordinating care, discussing management plans with involved caregivers. Management plans discussed with involved personnels. Medical decision making was of moderate to high complexity , patient's has multiple comorbidities. Medications reviewed and adjusted accordingly: Yes
--- NOTE | 2018-03-27 15:16 | PDOC PROGRESS REPORT ---
Subjective Progress Note for:: 03/27/18 Subjective:: Patient feeling good today. No chest pain or difficulty breathing. Slept well. No anxiety. Constipation. No dysuria. He thinks he is losing a little bit of fluid in his legs. No dizziness. Reason For Visit: COPD EXACERBATION PNEUMONIA Physical Exam Vital Signs: Temp Pulse Resp BP Pulse Ox 98.5 F 84 16 102/79 96 03/27/18 12:40 03/27/18 13:21 03/27/18 13:21 03/27/18 12:40 03/27/18 13:21 Intake & Output 03/26/18 03/27/18 03/28/18 06:59 06:59 06:59 Intake Total 726 815 476 Output Total 775 800 Balance -49 15 476 Weight 76.1 kg 74.3 kg General appearance: PRESENT: no acute distress, cooperative Eye exam: PRESENT: EOMI Mouth exam: PRESENT: neck supple, tongue midline Respiratory exam: PRESENT: clear to auscultation alicia, unlabored. ABSENT: rales , rhonchi, wheezes Cardiovascular exam: PRESENT: irregular rhythm. ABSENT: tachycardia GI/Abdominal exam: PRESENT: normal bowel sounds, soft. ABSENT: distended, tenderness Extremities exam: PRESENT: +1 edema Neurological exam: PRESENT: alert, awake, oriented to person, oriented to place , oriented to situation, CN II-XII grossly intact Psychiatric exam: PRESENT: appropriate affect. ABSENT: anxious Skin exam: PRESENT: normal color, warm. ABSENT: pallor Results Laboratory Results: 03/27/18 04:49 03/27/18 04:49 03/27/18 03/27/18 04:49 04:49 WBC 13.6 H RBC 3.42 L Hgb 9.1 L Hct 27.8 L MCV 81 MCH 26.4 L MCHC 32.5 RDW 22.0 H Plt Count 302 Seg Neutrophils % 71.5 Lymphocytes % 18.1 Monocytes % 9.2 Eosinophils % 1.0 Basophils % 0.2 Absolute Neutrophils 9.7 H Absolute Lymphocytes 2.5 Absolute Monocytes 1.2 Absolute Eosinophils 0.1 Absolute Basophils 0.0 Sodium 142.4 Potassium 4.0 Chloride 97 L Carbon Dioxide 39 H Anion Gap 6 BUN 29 H Creatinine 0.89 Est GFR ( Amer) > 60 Est GFR (Non-Af Amer) > 60 Glucose 80 Calcium 8.5 03/25/18 03/25/18 03/25/18 13:04 13:04 19:35 Creatine Kinase < 20 L < 20 L CK-MB (CK-2) 1.04 Troponin I 0.019 03/25/18 03/26/18 03/26/18 19:35 04:14 04:14 Creatine Kinase < 20 L CK-MB (CK-2) 0.88 0.68 Troponin I 0.023 0.024 Impressions: Chest X-Ray 03/24/18 22:47 IMPRESSION: No significant change. Assessment & Plan - Diagnosis (1) Hypotension Is this a current diagnosis for this admission?: Yes Plan: Improved with midodrine and gentle diuresis. Continue current care. Appreciate cardiology consultation. (2) Acute exacerbation of congestive heart failure Qualifiers: Heart failure type: diastolic Qualified Code(s): I50.33 - Acute on chronic diastolic (congestive) heart failure Is this a current diagnosis for this admission?: Yes Plan: Appreciate cardiology consultation. Will continue current medical management which includes mid a drain and diuresis with torsemide. Will monitor renal function, electrolytes and blood pressure. (3) COPD exacerbation Is this a current diagnosis for this admission?: Yes Plan: Exacerbation resolved. Continue current care. (4) Anxiety Is this a current diagnosis for this admission?: Yes Plan: Under good control, continue his as needed benzodiazepine. His anxiety is usually related to dyspnea. (5) Atrial fibrillation with RVR Is this a current diagnosis for this admission?: Yes Plan: Heart rate is well controlled on current dose of diltiazem, will continue this. Patient is not on anticoagulation as he has been deemed too high risk due to fall risk. (6) CAD (coronary artery disease) Qualifiers: Coronary Disease-Associated Artery/Lesion type: [place] artery Is this a current diagnosis for this admission?: Yes Plan: No angina, stable, cont current meds. Patient not on aspirin, will discuss with automatic dry starch operator. (7) Pneumonia Qualifiers: Pneumonia type: due to unspecified organism Laterality: unspecified laterality Lung location: unspecified part of lung Qualified Code(s): J18.9 - Pneumonia, unspecified organism Is this a current diagnosis for this admission?: Yes Plan: Patient was recently hospitalized and diagnosed with Acinetobacter pneumonia discharged with 10 days of meropenem, difficult to tell exactly when that was started by my counting it appears that tomorrow will be the last day of meropenem. We will see if I can learn more, perhaps speak with the pharmacy about this. We will stop his meropenem when the treatment is complete. PICC can be removed at that time as well. - Time Time Spent with patient: 15-24 minutes Medications reviewed and adjusted accordingly: Yes - Inpatient Certification Based on my medical assessment, after consideration of the patient's comorbidities, presenting symptoms, or acuity I expect that the services needed warrant INPATIENT care.: Yes I certify that my determination is in accordance with my understanding of Medicare's requirements for reasonable and necessary INPATIENT services [42 CFR 412.3e].: Yes Medical Necessity: Need Close Monitoring Due to Risk of Patient Decompensation, Need for IV Antibiotics
[2018-03-27] MEDS: ATORVASTATIN CALCIUM 80 MG TABLET PO SCH (21:20)
[2018-03-28] MEDS: MEROPENEM 1 GM in NORMAL SALINE 50 ML IV SCH (01:23)
[2018-03-28] MEDS: IPRATROPIUM/ALBUTEROL 0.5-2.5 MG/3 ML AMPUL NEB SCH ×4 (02:02→20:09)
[2018-03-28] MEDS: GABAPENTIN 300 MG CAPSULE PO SCH ×3 (06:04→21:38)
[2018-03-28] MEDS: HEPARIN SOD (PORCINE) 5,000 UNIT/ML 1 ML SYRINGE SUBCUT SCH ×3 (06:04→21:39)
[2018-03-28] MEDS: DILTIAZEM HCL 60 MG TABLET PO SCH ×3 (06:04→21:38)
--- NOTE | 2018-03-28 06:55 | EKG REPORT ---
SEVERITY:- ABNORMAL ECG - VENTRICULAR-PACED COMPLEXES BORDERLINE LEFT AXIS DEVIATION A FIB : Confirmed by: Martha Mccall 28-Mar-2018 06:54:47
[2018-03-28 06:58] LABS: ABSOLUTE EOSINOPHILS # (AUTO) 0.8 10^3/uL (0.0-0.6); ABSOLUTE LYMPHOCYTES (AUTO) 2.2 10^3/uL (0.5-4.7); ABSOLUTE MONOCYTES (AUTO) 1.1 10^3/uL (0.1-1.4); ABSOLUTE NEUT (AUTO) 6.4 10^3/uL (1.7-8.2); BASOPHILS % (AUTO) 0.3 % (0-2); HEMATOCRIT 28.7 % (37.9-51.0); HEMOGLOBIN 9.4 g/dL (13.5-17.0); LYMPHOCYTES % (AUTO) 20.8 % (13-45); MEAN CORPUSCULAR HEMOGLOBIN 26.5 pg (27.0-33.4); MEAN CORPUSCULAR HGB CONC 32.6 g/dL (32.0-36.0); MEAN CORPUSCULAR VOLUME 81 fl (80-97); MONOCYTES % (AUTO) 10.2 % (3-13); PLATELET COUNT 302 10^3/uL (150-450); RED BLOOD COUNT 3.53 10^6/uL (4.35-5.55); RED CELL DISTRIBUTION WIDTH 22.1 % (11.5-14.0); SEGMENTED NEUTROPHILS % (AUTO) 60.7 % (42-78); TOTAL CELLS COUNTED % (AUTO) 100 %; WHITE BLOOD COUNT 10.6 10^3/uL (4.0-10.5)
[2018-03-28 07:16] LABS: BLOOD UREA NITROGEN 25 mg/dL (7-20); CALCIUM 8.5 mg/dL (8.4-10.2); CHLORIDE 94 mmol/L (98-107); GLUCOSE 80 mg/dL (75-110); POTASSIUM 4.2 mmol/L (3.6-5.0); SODIUM 141.1 mmol/L (137-145)
[2018-03-28 07:32] LABS: ANION GAP 4 (5-19)
[2018-03-28 07:55] LABS: CARBON DIOXIDE 43 mmol/L (22-30)
[2018-03-28] MEDS: FLUTICASONE NASAL SPRAY 50 MCG/SPRY 120 SPRAY/16 GM NASL SCH ×2 (10:29→21:39)
[2018-03-28] MEDS: VENLAFAXINE HCL 37.5 MG CAP.SR.24H PO SCH (10:29)
[2018-03-28] MEDS: TORSEMIDE 20 MG TABLET PO SCH (10:29)
[2018-03-28] MEDS: MIDODRINE HCL 5 MG TABLET PO SCH ×3 (10:29→19:00)
[2018-03-28] MEDS: BUDESONIDE/FORMOTEROL 160-4.5 MCG 60 PUFF/6 GM MDI IH SCH ×2 (10:29→21:39)
[2018-03-28] MEDS: TAMSULOSIN HCL 0.4 MG CAP.SR.24H PO SCH (10:29)
[2018-03-28] MEDS: DIGOXIN 0.125 MG TABLET PO SCH (10:30)
[2018-03-28] MEDS: PSYLLIUM SEED-SF 5.85 GM PACKET PO SCH (10:34)
[2018-03-28] MEDS: HYDROCODONE/ACETAMINOPHEN 7.5-325 MG TABLET PO PRN ×2 (11:50→21:42)
--- NOTE | 2018-03-28 18:51 | PDOC PROGRESS REPORT ---
Subjective Subjective:: Patient breathing fine today. No fevers or chills. His leg swelling is improving. No abdominal pain nausea or vomiting. Reason For Visit: COPD EXACERBATION PNEUMONIA Physical Exam Vital Signs: Temp Pulse Resp BP Pulse Ox 98.2 F 90 19 99/53 L 100 03/28/18 16:00 03/28/18 16:00 03/28/18 16:00 03/28/18 16:00 03/28/18 16:00 Intake & Output 03/27/18 03/28/18 03/29/18 06:59 06:59 06:59 Intake Total 815 2124 Output Total 800 1900 Balance 15 224 Weight 74.3 kg 71.8 kg General appearance: PRESENT: no acute distress, thin Head exam: PRESENT: atraumatic, normocephalic Eye exam: PRESENT: EOMI Mouth exam: PRESENT: moist, tongue midline Respiratory exam: PRESENT: decreased breath sounds, unlabored, wheezes - Mild expiratory. ABSENT: rales GI/Abdominal exam: PRESENT: normal bowel sounds, soft. ABSENT: distended, firm , tenderness Extremities exam: PRESENT: +1 edema - Edema improving Neurological exam: PRESENT: alert, awake, oriented to person, oriented to place , oriented to situation, CN II-XII grossly intact Psychiatric exam: PRESENT: appropriate affect. ABSENT: anxious Skin exam: PRESENT: dry, warm Results Laboratory Results: 03/28/18 05:50 03/28/18 05:50 03/28/18 03/28/18 05:50 05:50 WBC 10.6 H RBC 3.53 L Hgb 9.4 L Hct 28.7 L MCV 81 MCH 26.5 L MCHC 32.6 RDW 22.1 H Plt Count 302 Seg Neutrophils % 60.7 Lymphocytes % 20.8 Monocytes % 10.2 Eosinophils % 8.0 H Basophils % 0.3 Absolute Neutrophils 6.4 Absolute Lymphocytes 2.2 Absolute Monocytes 1.1 Absolute Eosinophils 0.8 H Absolute Basophils 0.0 Sodium 141.1 Potassium 4.2 Chloride 94 L Carbon Dioxide 43 H* Anion Gap 4 L BUN 25 H Creatinine 0.82 Est GFR ( Amer) > 60 Est GFR (Non-Af Amer) > 60 Glucose 80 Calcium 8.5 03/26/18 03:45 Clean Catch Midstream Urine Culture - Final Yeast, Not [place] 03/25/18 03/25/1818 13:04 13:04 19:35 Creatine Kinase < 20 L < 20 L CK-MB (CK-2) 1.04 Troponin I 0.019 03/25/18 03/26/18 03/26/18 19:35 04:14 04:14 Creatine Kinase < 20 L CK-MB (CK-2) 0.88 0.68 Troponin I 0.023 0.024 Impressions: Chest X-Ray 03/24/18 22:47 IMPRESSION: No significant change. Assessment & Plan - Diagnosis (1) Hypotension Is this a current diagnosis for this admission?: Yes Plan: Patient continues on midodrine and with this we are able to diurese him. Cardiology consulting. (2) Acute exacerbation of congestive heart failure Qualifiers: Heart failure type: diastolic Qualified Code(s): I50.33 - Acute on chronic diastolic (congestive) heart failure Is this a current diagnosis for this admission?: Yes Plan: Aside from the lower extremity edema his heart failure is stable. Diastolic failure seems stable. (3) COPD exacerbation Is this a current diagnosis for this admission?: Yes Plan: Back to baseline. Continue current medical management. (4) Anxiety Is this a current diagnosis for this admission?: Yes Plan: Doing well. Continue as needed Ativan. (5) Atrial fibrillation with RVR Is this a current diagnosis for this admission?: Yes Plan: Rate well controlled. Continue diltiazem. May want to speak with health aid about these of this medication given his hypotension. (6) CAD (coronary artery disease) Qualifiers: Coronary Disease-Associated Artery/Lesion type: [place] artery Is this a current diagnosis for this admission?: Yes Plan: Stable continue current medications. Is pain-free. (7) Pneumonia Qualifiers: Pneumonia type: due to unspecified organism Laterality: unspecified laterality Lung location: unspecified part of lung Qualified Code(s): J18.9 - Pneumonia, unspecified organism Is this a current diagnosis for this admission?: Yes Plan: Today he completed the meropenem that was started during the last hospitalization. Patient and I have ordered for the PICC line to be removed. - Time Time Spent with patient: 25-34 minutes Medications reviewed and adjusted accordingly: Yes Anticipated discharge: Home with Homehealth - Inpatient Certification Based on my medical assessment, after consideration of the patient's comorbidities, presenting symptoms, or acuity I expect that the services needed warrant INPATIENT care.: Yes I certify that my determination is in accordance with my understanding of Medicare's requirements for reasonable and necessary INPATIENT services [42 CFR 412.3e].: Yes Medical Necessity: Significant Comorbidiites Make Outpatient Treatment Too Risky , Need Close Monitoring Due to Risk of Patient Decompensation, Risk of Complication if Not Cared For in Hospital
[2018-03-28] MEDS: ACETAMINOPHEN 325 MG TABLET PO PRN (19:00)
[2018-03-28 20:39] LABS: BLOOD UREA NITROGEN 29 mg/dL (7-20); CALCIUM 8.4 mg/dL (8.4-10.2); CHLORIDE 90 mmol/L (98-107); GLUCOSE 112 mg/dL (75-110); POTASSIUM 3.9 mmol/L (3.6-5.0); SODIUM 137.5 mmol/L (137-145)
[2018-03-28 20:51] LABS: ANION GAP 6 (5-19)
[2018-03-28 20:54] LABS: CARBON DIOXIDE 42 mmol/L (22-30)
[2018-03-28] MEDS: ATORVASTATIN CALCIUM 80 MG TABLET PO SCH (21:38)
[2018-03-29] MEDS: IPRATROPIUM/ALBUTEROL 0.5-2.5 MG/3 ML AMPUL NEB SCH ×4 (02:05→20:57)
[2018-03-29] MEDS: HYDROCODONE/ACETAMINOPHEN 7.5-325 MG TABLET PO PRN ×2 (06:46→14:49)
[2018-03-29] MEDS: HEPARIN SOD (PORCINE) 5,000 UNIT/ML 1 ML SYRINGE SUBCUT SCH ×3 (06:46→21:30)
[2018-03-29] MEDS: DILTIAZEM HCL 60 MG TABLET PO SCH ×2 (06:47→14:49)
[2018-03-29] MEDS: GABAPENTIN 300 MG CAPSULE PO SCH ×3 (06:47→21:30)
[2018-03-29 07:18] LABS: BLOOD UREA NITROGEN 27 mg/dL (7-20); CALCIUM 8.9 mg/dL (8.4-10.2); CHLORIDE 92 mmol/L (98-107); GLUCOSE 83 mg/dL (75-110); POTASSIUM 4.1 mmol/L (3.6-5.0); SODIUM 139.9 mmol/L (137-145)
[2018-03-29 07:28] LABS: ANION GAP 4 (5-19)
[2018-03-29 07:31] LABS: CARBON DIOXIDE 44 mmol/L (22-30)
[2018-03-29] MEDS: DIGOXIN 0.125 MG TABLET PO SCH (10:00)
[2018-03-29] MEDS: TAMSULOSIN HCL 0.4 MG CAP.SR.24H PO SCH (10:00)
[2018-03-29] MEDS: TORSEMIDE 20 MG TABLET PO SCH (10:01)
[2018-03-29] MEDS: BUDESONIDE/FORMOTEROL 160-4.5 MCG 60 PUFF/6 GM MDI IH SCH ×2 (10:02→21:30)
[2018-03-29] MEDS: FLUTICASONE NASAL SPRAY 50 MCG/SPRY 120 SPRAY/16 GM NASL SCH ×2 (10:03→21:30)
[2018-03-29] MEDS: VENLAFAXINE HCL 37.5 MG CAP.SR.24H PO SCH (10:04)
[2018-03-29] MEDS: MIDODRINE HCL 5 MG TABLET PO SCH ×3 (10:04→17:27)
[2018-03-29] MEDS: PSYLLIUM SEED-SF 5.85 GM PACKET PO SCH (10:10)
[2018-03-29] MEDS: ACETAMINOPHEN 325 MG TABLET PO PRN ×2 (11:18→17:32)
[2018-03-29] MEDS ORDERED: NORMAL SALINE 250 ML IV ONE (19:45)
--- NOTE | 2018-03-29 20:39 | PDOC PROGRESS REPORT ---
Subjective Progress Note for:: 03/29/18 Subjective:: Doing okay, no chest pain or shortness of breath or palpitations. No nausea or vomiting, no abdominal pain. Still with episodes of hypotension, received 250 cc bolus of fluid today. Reason For Visit: COPD EXACERBATION PNEUMONIA Physical Exam Vital Signs: Temp Pulse Resp BP Pulse Ox 97.9 F 74 20 98/54 L 98 03/29/18 16:00 03/29/18 19:00 03/29/18 16:00 03/29/18 16:00 03/29/18 16:00 Intake & Output 03/28/18 03/29/18 03/30/18 06:59 06:59 06:59 Intake Total 2124 1745 1550 Output Total 1900 1122 Balance 206 924 6140 Weight 71.8 kg 71.8 kg General appearance: PRESENT: no acute distress, thin Head exam: PRESENT: atraumatic, normocephalic Eye exam: PRESENT: EOMI Mouth exam: PRESENT: moist, tongue midline Respiratory exam: PRESENT: decreased breath sounds, unlabored, wheezes - Mild expiratory. ABSENT: rales GI/Abdominal exam: PRESENT: normal bowel sounds, soft. ABSENT: distended, firm , tenderness Extremities exam: PRESENT: +1 edema - Edema improving Neurological exam: PRESENT: alert, awake, oriented to person, oriented to place , oriented to situation, CN II-XII grossly intact Psychiatric exam: PRESENT: appropriate affect. ABSENT: anxious Skin exam: PRESENT: dry, warm Results Laboratory Results: 03/28/18 05:50 03/29/18 06:35 03/28/18 03/29/18 19:55 06:35 Sodium 137.5 139.9 Potassium 3.9 4.1 Chloride 90 L 92 L Carbon Dioxide 42 H* 44 H* Anion Gap 6 4 L BUN 29 H 27 H Creatinine 1.00 0.77 Est GFR ( Amer) > 60 > 60 Est GFR (Non-Af Amer) > 60 > 60 Glucose 112 H 83 Calcium 8.4 8.9 Magnesium 2.0 03/26/18 08:05 Sputum Gram Stain - Final 03/25/18 03/25/18 03/25/18 13:04 13:04 19:35 Creatine Kinase < 20 L < 20 L CK-MB (CK-2) 1.04 Troponin I 0.019 03/25/18 03/26/18 03/26/18 19:35 04:14 04:14 Creatine Kinase < 20 L CK-MB (CK-2) 0.88 0.68 Troponin I 0.023 0.024 Impressions: Chest X-Ray 03/24/18 22:47 IMPRESSION: No significant change. Assessment & Plan - Plan Summary Plan Summary: (1) Hypotension Is this a current diagnosis for this admission?: Yes Plan: Patient continues on midodrine but still with episodes of hypotension. Cardiology consulting. Spoke with Dr. Mccall, agree D/C diltiazem and start digoxin (2) Acute exacerbation of congestive heart failure Qualifiers: Heart failure type: diastolic Qualified Code(s): I50.33 - Acute on chronic diastolic (congestive) heart failure Is this a current diagnosis for this admission?: Yes Plan: Aside from the lower extremity edema his heart failure is stable. Diastolic failure seems stable. (3) COPD exacerbation Is this a current diagnosis for this admission?: Yes Plan: Back to baseline. Continue current medical management. (4) Anxiety Is this a current diagnosis for this admission?: Yes Plan: Doing well. Continue as needed Ativan. (5) Atrial fibrillation with RVR Is this a current diagnosis for this admission?: Yes Plan: Rate well controlled but discontinue diltiazem to episodes of hypotension. This is doing clinically continue CBC and to move around [place] assuming the same renal given his hypotension. (6) CAD (coronary artery disease) Qualifiers: Coronary Disease-Associated Artery/Lesion type: [place] artery Is this a current diagnosis for this admission?: Yes Plan: Stable continue current medications. Is pain-free. (7) Pneumonia Qualifiers: Pneumonia type: due to unspecified organism Laterality: unspecified laterality Lung location: unspecified part of lung Qualified Code(s): J18.9 - Pneumonia, unspecified organism Is this a current diagnosis for this admission?: Yes Plan: 03/28-completed the meropenem that was started during the last hospitalization. PICC d/c.
--- NOTE | 2018-03-29 20:54 | PDOC PROGRESS REPORT ---
Subjective Progress Note for:: 03/29/18 Subjective:: Patient seems to be doing better with gradual improvement. His leg swelling is less, breathing is more comfortable Pt is denying any chest arm or neck discomfort. Patient denying any PND, orthopnea. Patient denied any sustained palpitations, dizziness, syncope, near syncope. Patient denying any fever chills. Patient denying any other significant discomfort. Patient is maintaining atrial fibrillation with intermittent ventricular paced beats. Review of systems: Rest review of systems negative. Medications: Medications have been reviewed. Reason For Visit: COPD EXACERBATION PNEUMONIA Physical Exam Vital Signs: Temp Pulse Resp BP Pulse Ox 97.9 F 74 20 98/54 L 98 03/29/18 16:00 03/29/18 19:00 03/29/18 16:00 03/29/18 16:00 03/29/18 16:00 Intake & Output 03/28/18 03/29/18 03/30/18 06:59 06:59 06:59 Intake Total 2124 1745 1550 Output Total 1900 1122 Balance 255 386 2006 Weight 71.8 kg 71.8 kg Exam: GENERAL: well-nourished and in no acute distress. Alert and oriented x3 HEAD: Atraumatic, normocephalic. EYES: Pupils equal round and reactive to light, extraocular movements intact, sclera anicteric, conjunctiva are normal. ENT: TMs normal, nares patent, oropharynx clear without exudates. Moist mucous membranes. No oral ulcerations or bleeding gums noted NECK: supple without lymphadenopathy. Trachea is central. No cervical or axillary lymphadenopathy noted. Carotids are 2+, JVD WNL LUNGS: Respiration seems nonlabored, no significant accessory muscle action noted. Bibasilar fine crackles with few scattered wheezes rales or rhonchi noted. No significant dullness noted on percussion. CHEST: Palpation of the chest wall shows no significant chest wall tenderness. 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 ABDOMEN: Soft, no significant tenderness appreciated, normoactive bowel sounds. No guarding, no rebound. No rigidity noted . No masses appreciated. EXTREMITIES: Pedal pulses are 1-2+, no calf tenderness noted. No clubbing or cyanosis. 2+ pedal edema noted NEUROLOGICAL: Focused neurological exam showed no significant neurologic deficit. Normal speech, no focal weakness appreciated. PSYCH: Normal mood, normal affect. Judgment and insight within normal limits. SKIN: No significant ecchymosis, skin is noted to be warm. MUSCULOSKELETAL EXAM: No significant acute joint swelling noted. Results Laboratory Results: 03/28/18 05:50 03/29/18 06:35 03/28/18 03/29/18 19:55 06:35 Sodium 137.5 139.9 Potassium 3.9 4.1 Chloride 90 L 92 L Carbon Dioxide 42 H* 44 H* Anion Gap 6 4 L BUN 29 H 27 H Creatinine 1.00 0.77 Est GFR ( Amer) > 60 > 60 Est GFR (Non-Af Amer) > 60 > 60 Glucose 112 H 83 Calcium 8.4 8.9 Magnesium 2.0 03/26/18 08:05 Sputum Gram Stain - Final 03/25/18 03/25/18 03/25/18 13:04 13:04 19:35 Creatine Kinase < 20 L < 20 L CK-MB (CK-2) 1.04 Troponin I 0.019 03/25/18 03/26/18 03/26/18 19:35 04:14 04:14 Creatine Kinase < 20 L CK-MB (CK-2) 0.88 0.68 Troponin I 0.023 0.024 Impressions: Chest X-Ray 03/24/18 22:47 IMPRESSION: No significant change. Assessment & Plan - Diagnosis (1) Acute on chronic diastolic heart failure Is this a current diagnosis for this admission?: Yes (2) COPD exacerbation Is this a current diagnosis for this admission?: Yes (3) Hypotension Is this a current diagnosis for this admission?: Yes (4) Lower extremity edema Is this a current diagnosis for this admission?: Yes (5) Atrial fibrillation Qualifiers: Atrial fibrillation type: chronic Qualified Code(s): I48.2 - Chronic atrial fibrillation (6) CAD (coronary artery disease) Qualifiers: Coronary Disease-Associated Artery/Lesion type: [place] artery Is this a current diagnosis for this admission?: Yes (7) HLD (hyperlipidemia) Qualifiers: Hyperlipidemia type: unspecified Qualified Code(s): E78.5 - Hyperlipidemia , unspecified Is this a current diagnosis for this admission?: Yes (8) HTN (hypertension) Qualifiers: Hypertension type: essential hypertension Qualified Code(s): I10 - Essential (primary) hypertension Is this a current diagnosis for this admission?: Yes (9) Cardiac pacemaker in situ Is this a current diagnosis for this admission?: Yes - Notes Notes: I was told by the hospitalist that patient has been noted to have low blood pressure. Patient is on diltiazem therapy. So far review of rhythm strip did not show any significant tachycardia. At this point feel that patient could be taken off diltiazem and placed on digoxin. Patient was also placed on support stockings. If blood pressure remains low, we may need to go up on the Midodrin dose or back off the diuretics. - Time Time with patient: 15-25 minutes - CODE STATUS : was discussed, patient remains DO NOT RESUSCITATE. Surrogate decision-maker unchanged. Multiple medical problems were addressed. More than 50% of the time spent coordinating care, discussing management plans with involved caregivers. Management plans discussed with involved personnels. Medical decision making was of moderate to high complexity, patient's has multiple comorbidities. Medications reviewed and adjusted accordingly: Yes
[2018-03-29] MEDS: ATORVASTATIN CALCIUM 80 MG TABLET PO SCH (21:30)
[2018-03-30] MEDS: IPRATROPIUM/ALBUTEROL 0.5-2.5 MG/3 ML AMPUL NEB SCH ×4 (02:37→19:38)
[2018-03-30] MEDS: ACETAMINOPHEN 325 MG TABLET PO PRN ×2 (05:56→19:36)
[2018-03-30] MEDS: GABAPENTIN 300 MG CAPSULE PO SCH ×3 (05:56→22:32)
[2018-03-30] MEDS: HEPARIN SOD (PORCINE) 5,000 UNIT/ML 1 ML SYRINGE SUBCUT SCH ×3 (05:57→22:33)
[2018-03-30 06:10] LABS: ABSOLUTE EOSINOPHILS # (AUTO) 1.1 10^3/uL (0.0-0.6); ABSOLUTE LYMPHOCYTES (AUTO) 2.3 10^3/uL (0.5-4.7); ABSOLUTE MONOCYTES (AUTO) 1.1 10^3/uL (0.1-1.4); ABSOLUTE NEUT (AUTO) 5.3 10^3/uL (1.7-8.2); BASOPHILS % (AUTO) 0.5 % (0-2); HEMATOCRIT 28.5 % (37.9-51.0); HEMOGLOBIN 9.6 g/dL (13.5-17.0); LYMPHOCYTES % (AUTO) 23.1 % (13-45); MEAN CORPUSCULAR HEMOGLOBIN 26.8 pg (27.0-33.4); MEAN CORPUSCULAR HGB CONC 33.5 g/dL (32.0-36.0); MEAN CORPUSCULAR VOLUME 80 fl (80-97); MONOCYTES % (AUTO) 11.6 % (3-13); PLATELET COUNT 300 10^3/uL (150-450); RED BLOOD COUNT 3.57 10^6/uL (4.35-5.55); RED CELL DISTRIBUTION WIDTH 21.6 % (11.5-14.0); SEGMENTED NEUTROPHILS % (AUTO) 53.8 % (42-78); TOTAL CELLS COUNTED % (AUTO) 100 %; WHITE BLOOD COUNT 9.8 10^3/uL (4.0-10.5)
[2018-03-30 06:20] LABS: BLOOD UREA NITROGEN 23 mg/dL (7-20); CALCIUM 8.7 mg/dL (8.4-10.2); CHLORIDE 93 mmol/L (98-107); GLUCOSE 85 mg/dL (75-110); POTASSIUM 3.9 mmol/L (3.6-5.0)
[2018-03-30 06:31] LABS: ANION GAP 5 (5-19); CARBON DIOXIDE 41 mmol/L (22-30)
[2018-03-30] MEDS: HYDROCODONE/ACETAMINOPHEN 7.5-325 MG TABLET PO PRN ×2 (08:55→17:04)
[2018-03-30] MEDS: BUDESONIDE/FORMOTEROL 160-4.5 MCG 60 PUFF/6 GM MDI IH SCH ×2 (12:04→22:33)
[2018-03-30] MEDS: TORSEMIDE 20 MG TABLET PO SCH (12:05)
[2018-03-30] MEDS: FLUTICASONE NASAL SPRAY 50 MCG/SPRY 120 SPRAY/16 GM NASL SCH ×2 (12:05→22:33)
[2018-03-30] MEDS: TAMSULOSIN HCL 0.4 MG CAP.SR.24H PO SCH (12:05)
[2018-03-30] MEDS: DIGOXIN 0.125 MG TABLET PO SCH (12:06)
[2018-03-30] MEDS: MIDODRINE HCL 5 MG TABLET PO SCH ×3 (12:06→19:31)
[2018-03-30] MEDS: VENLAFAXINE HCL 37.5 MG CAP.SR.24H PO SCH (12:07)
[2018-03-30] MEDS: PSYLLIUM SEED-SF 5.85 GM PACKET PO SCH (12:08)
[2018-03-30] MEDS ORDERED: DILTIAZEM HCL 30 MG TABLET PO ONE (16:45)
--- NOTE | 2018-03-30 18:58 | PDOC PROGRESS REPORT ---
Subjective Progress Note for:: 03/30/18 Subjective:: Doing okay, no chest pain or shortness of breath or palpitations. No nausea or vomiting, no abdominal pain. Received 250 cc bolus of saline last night due to hypotension. Cardizem 60 mg every 8 was also discontinued. Today patient with episodes of tachycardia to 130s, blood pressure doing better. Reason For Visit: COPD EXACERBATION PNEUMONIA Physical Exam Vital Signs: Temp Pulse Resp BP Pulse Ox 98.2 F 70 18 141/75 H 97 03/30/18 16:00 03/30/18 16:00 03/30/18 16:00 03/30/18 16:00 03/30/18 16:00 Intake & Output 03/29/18 03/30/18 03/31/18 06:59 06:59 06:59 Intake Total 1745 2412 598 Output Total 1122 Balance 623 2412 598 Weight 71.8 kg 73.3 kg GEN: NAD, well-developed, well-nourished CV: Irregularly irregular, NL S1S2 LUNGS: Few wheezes/rhonchi bilaterally ABDOMEN Soft, NT, +BS EXTERMITIES: Vitals were extremity edema NEURO: Alert, oriented 3, no focal Results Laboratory Results: 03/30/18 05:55 03/30/18 05:55 03/30/18 03/30/18 05:55 05:55 WBC 9.8 RBC 3.57 L Hgb 9.6 L Hct 28.5 L MCV 80 MCH 26.8 L MCHC 33.5 RDW 21.6 H Plt Count 300 Seg Neutrophils % 53.8 Lymphocytes % 23.1 Monocytes % 11.6 Eosinophils % 11.0 H Basophils % 0.5 Absolute Neutrophils 5.3 Absolute Lymphocytes 2.3 Absolute Monocytes 1.1 Absolute Eosinophils 1.1 H Absolute Basophils 0.0 Sodium 139.0 Potassium 3.9 Chloride 93 L Carbon Dioxide 41 H* Anion Gap 5 BUN 23 H Creatinine 0.70 Est GFR ( Amer) > 60 Est GFR (Non-Af Amer) > 60 Glucose 85 Calcium 8.7 03/26/18 08:05 Sputum Gram Stain - Final 03/26/18 08:05 Sputum Sputum Culture - Final Stenotrophomonas Maltophilia Yeast, Not Ngoc Albicans Normal Brittny Absent 03/25/18 03/25/18 03/25/18 13:04 13:04 19:35 Creatine Kinase < 20 L < 20 L CK-MB (CK-2) 1.04 Troponin I 0.019 03/25/18 03/26/18 03/26/18 19:35 04:14 04:14 Creatine Kinase < 20 L CK-MB (CK-2) 0.88 0.68 Troponin I 0.023 0.024 Impressions: Chest X-Ray 03/24/18 22:47 IMPRESSION: No significant change. Assessment & Plan - Plan Summary Plan Summary: (1) Hypotension Is this a current diagnosis for this admission?: Yes Plan: Patient will continues on midodrine. Cardiology consulting. Patient was already on digoxin and it is therapeutic. We will restart Cardizem at a lower dose 30 mg every 8 hours for now due to spikes of RVR of a-fib. (2) Acute exacerbation of congestive heart failure Qualifiers: Heart failure type: diastolic Qualified Code(s): I50.33 - Acute on chronic diastolic (congestive) heart failure Is this a current diagnosis for this admission?: Yes Plan: Aside from the lower extremity edema his heart failure is stable. Diastolic failure seems stable. (3) COPD exacerbation Is this a current diagnosis for this admission?: Yes Plan: Back to baseline. Continue current medical management. (4) Anxiety Is this a current diagnosis for this admission?: Yes Plan: Doing well. Continue as needed Ativan. (5) Atrial fibrillation with RVR Is this a current diagnosis for this admission?: Yes Plan: Rate with history of RVR with discontinue the diltiazem. Will restart at 30 every 8 hours in addition to digoxin. (6) CAD (coronary artery disease) Qualifiers: Coronary Disease-Associated Artery/Lesion type: [place] artery Is this a current diagnosis for this admission?: Yes Plan: Stable continue current medications. He is pain-free. (7) Pneumonia Qualifiers: Pneumonia type: due to unspecified organism Laterality: unspecified laterality Lung location: unspecified part of lung Qualified Code(s): J18.9 - Pneumonia, unspecified organism Is this a current diagnosis for this admission?: Yes Plan: 03/28-completed the meropenem that was started during the last hospitalization. PICC d/c.
[2018-03-30] MEDS ORDERED: MAG HYDROX/AL HYDROX/SIMETH SUSP 30 ML UDCUP PO PRN (19:14)
[2018-03-30] MEDS: DILTIAZEM HCL 30 MG TABLET PO SCH (22:32)
[2018-03-30] MEDS: ATORVASTATIN CALCIUM 80 MG TABLET PO SCH (22:32)
[2018-03-31] MEDS: IPRATROPIUM/ALBUTEROL 0.5-2.5 MG/3 ML AMPUL NEB SCH ×4 (01:57→19:55)
[2018-03-31] MEDS: DILTIAZEM HCL 30 MG TABLET PO SCH ×3 (05:31→22:33)
[2018-03-31] MEDS: HEPARIN SOD (PORCINE) 5,000 UNIT/ML 1 ML SYRINGE SUBCUT SCH ×3 (05:31→22:35)
[2018-03-31] MEDS: HYDROCODONE/ACETAMINOPHEN 7.5-325 MG TABLET PO PRN (05:32)
[2018-03-31] MEDS: GABAPENTIN 300 MG CAPSULE PO SCH ×3 (05:32→22:33)
[2018-03-31 06:27] LABS: HEMATOCRIT 32.4 % (37.9-51.0); HEMOGLOBIN 10.6 g/dL (13.5-17.0); MEAN CORPUSCULAR HEMOGLOBIN 26.5 pg (27.0-33.4); MEAN CORPUSCULAR HGB CONC 32.6 g/dL (32.0-36.0); MEAN CORPUSCULAR VOLUME 81 fl (80-97); PLATELET COUNT 331 10^3/uL (150-450); RED CELL DISTRIBUTION WIDTH 21.5 % (11.5-14.0)
[2018-03-31 06:42] LABS: ANION GAP 7 (5-19); BLOOD UREA NITROGEN 23 mg/dL (7-20); CALCIUM 8.4 mg/dL (8.4-10.2); CARBON DIOXIDE 37 mmol/L (22-30); CHLORIDE 95 mmol/L (98-107); GLUCOSE 88 mg/dL (75-110); POTASSIUM 4.4 mmol/L (3.6-5.0); SODIUM 139.2 mmol/L (137-145)
[2018-03-31 06:52] LABS: WHITE BLOOD COUNT 20.5 10^3/uL (4.0-10.5)
[2018-03-31 06:55] LABS: ABSOLUTE LYMPHOCYTES# (MANUAL) 1.6 10^3/uL (0.5-4.7); ABSOLUTE MONOCYTES # (MANUAL) 1.6 10^3/uL (0.1-1.4); ABSOLUTE NEUTROPHILS# (MANUAL) 16.4 10^3/uL (1.7-8.2); BASOPHILS % (MANUAL) 0 % (0-2); EOSINOPHILS % (MANUAL) 4 % (0-6); LYMPHOCYTES % (MANUAL) 8 % (13-45); MONOCYTES % (MANUAL) 8 % (3-13); SEGMENTED NEUTROPHILS % (MAN) 80 % (42-78); TOTAL CELLS COUNTED 100
[2018-03-31 06:56] LABS: ANISOCYTOSIS 2+; OVALOCYTES SLIGHT; PLATELET COMMENT ADEQUATE; POIKILOCYTOSIS SLIGHT; SCHISTOCYTES SLIGHT
[2018-03-31] MEDS: BUDESONIDE/FORMOTEROL 160-4.5 MCG 60 PUFF/6 GM MDI IH SCH ×2 (09:35→22:34)
[2018-03-31] MEDS: VENLAFAXINE HCL 37.5 MG CAP.SR.24H PO SCH (09:45)
[2018-03-31] MEDS: TAMSULOSIN HCL 0.4 MG CAP.SR.24H PO SCH (09:45)
[2018-03-31] MEDS: DIGOXIN 0.125 MG TABLET PO SCH (09:45)
[2018-03-31] MEDS: TORSEMIDE 20 MG TABLET PO SCH (09:45)
[2018-03-31] MEDS: FLUTICASONE NASAL SPRAY 50 MCG/SPRY 120 SPRAY/16 GM NASL SCH ×2 (09:46→22:34)
[2018-03-31] MEDS: MIDODRINE HCL 5 MG TABLET PO SCH ×3 (09:46→18:09)
[2018-03-31] MEDS: PSYLLIUM SEED-SF 5.85 GM PACKET PO SCH (09:46)
[2018-03-31] MEDS: ACETAMINOPHEN 325 MG TABLET PO PRN (18:13)
--- NOTE | 2018-03-31 22:31 | PDOC PROGRESS REPORT ---
Subjective Progress Note for:: 03/31/18 Subjective:: Doing okay, no chest pain or shortness of breath or palpitations. No nausea or vomiting, no abdominal pain. Received 250 cc bolus of saline 2 nights ago due to hypotension. Cardizem 60 mg every 8 was also discontinued but restarted yesterday at 30 mg per hr due to episodes of tachycardia to 130s and improvement in blood pressure doing better. Patient remains on Midodrin. I had a long discussion with patient and family, including and daughter, today about hospice, as his condition is very tenuous and this is his fifth hospitalization since November. They are open to talking to [facility] and/or [facility]. Case management was called and involved. Reason For Visit: COPD EXACERBATION PNEUMONIA Physical Exam Vital Signs: Temp Pulse Resp BP Pulse Ox 98.5 F 108 H 18 92/64 L 97 03/31/18 11:04 03/31/18 14:00 03/31/18 13:38 03/31/18 15:42 03/31/18 13:38 Intake & Output 03/30/18 03/31/18 04/01/18 06:59 06:59 06:59 Intake Total 2412 1089 150 Balance 2412 1089 150 Weight 73.3 kg 73.6 kg GEN: NAD, well-developed, well-nourished CV: Irregularly irregular, NL S1S2 LUNGS: Few wheezes/rhonchi bilaterally ABDOMEN Soft, NT, +BS EXTERMITIES: Bilateral lower extremity edema NEURO: Alert, oriented 3, no focal Results Laboratory Results: 03/31/18 05:45 03/31/18 05:45 03/31/18 03/31/18 05:45 05:45 WBC 20.5 H D RBC 4.00 L Hgb 10.6 L Hct 32.4 L MCV 81 MCH 26.5 L MCHC 32.6 RDW 21.5 H Plt Count 331 Seg Neutrophils % Not Reportable Lymphocytes % Not Reportable Monocytes % Not Reportable Eosinophils % Not Reportable Basophils % Not Reportable Absolute Neutrophils Not Reportable Absolute Lymphocytes Not Reportable Absolute Monocytes Not Reportable Absolute Eosinophils Not Reportable Absolute Basophils Not Reportable Sodium 139.2 Potassium 4.4 Chloride 95 L Carbon Dioxide 37 H Anion Gap 7 BUN 23 H Creatinine 0.76 Est GFR ( Amer) > 60 Est GFR (Non-Af Amer) > 60 Glucose 88 Calcium 8.4 03/25/18 03/25/18 03/25/18 13:04 13:04 19:35 Creatine Kinase < 20 L < 20 L CK-MB (CK-2) 1.04 Troponin I 0.019 03/25/18 03/26/18 03/26/18 19:35 04:14 04:14 Creatine Kinase < 20 L CK-MB (CK-2) 0.88 0.68 Troponin I 0.023 0.024 Impressions: Chest X-Ray 03/24/18 22:47 IMPRESSION: No significant change. Assessment & Plan - Plan Summary Plan Summary: (1) Hypotension Is this a current diagnosis for this admission?: Yes Plan: Will continue patient on midodrine. Cardiology consulting. Patient was already on digoxin and it is therapeutic. We will continue Cardizem at a lower dose 30 mg every 8 hours for now due to spikes of RVR of a-fib. (2) Acute exacerbation of congestive heart failure Qualifiers: Heart failure type: diastolic Qualified Code(s): I50.33 - Acute on chronic diastolic (congestive) heart failure Is this a current diagnosis for this admission?: Yes Plan: Aside from the lower extremity edema diastolic failure seems stable. (3) COPD exacerbation Is this a current diagnosis for this admission?: Yes Plan: Back to baseline. Continue current medical management. (4) Anxiety Is this a current diagnosis for this admission?: Yes Plan: Doing well. Continue as needed Ativan. (5) Atrial fibrillation with RVR Is this a current diagnosis for this admission?: Yes Plan: Rate with history of RVR with discontinuation of diltiazem. Will continue at 30 every 8 hours in addition to digoxin. (6) CAD (coronary artery disease) Qualifiers: Coronary Disease-Associated Artery/Lesion type: [place] artery Is this a current diagnosis for this admission?: Yes Plan: Stable ,continue current medications. He is pain-free. (7) Pneumonia Qualifiers: Pneumonia type: due to unspecified organism Laterality: unspecified laterality Lung location: unspecified part of lung Qualified Code(s): J18.9 - Pneumonia, unspecified organism Is this a current diagnosis for this admission?: Yes Plan: 03/28-completed the meropenem that was started during the last hospitalization. Concerning though is a spike of WBC today, after initial improvement in leukocytosis. We will recheck chest x-ray, UA, blood cultures. We will hold off restarting antibiotics at this time pending these results. Consider restarting antibiotics if patient spikes temperature. Palliative/psychosocial/disposition: Possible hospice evaluation.
[2018-03-31] MEDS: ATORVASTATIN CALCIUM 80 MG TABLET PO SCH (22:34)
[2018-04-01] MEDS: IPRATROPIUM/ALBUTEROL 0.5-2.5 MG/3 ML AMPUL NEB SCH ×3 (02:26→14:16)
[2018-04-01] MEDS: HEPARIN SOD (PORCINE) 5,000 UNIT/ML 1 ML SYRINGE SUBCUT SCH ×2 (06:20→13:20)
[2018-04-01] MEDS: GABAPENTIN 300 MG CAPSULE PO SCH ×2 (06:20→14:23)
[2018-04-01] MEDS: DILTIAZEM HCL 30 MG TABLET PO SCH ×2 (06:20→13:20)
[2018-04-01 07:32] LABS: ABSOLUTE BASOPHILS # (AUTO) 0.1 10^3/uL (0.0-0.2); ABSOLUTE EOSINOPHILS # (AUTO) 0.7 10^3/uL (0.0-0.6); ABSOLUTE LYMPHOCYTES (AUTO) 2.4 10^3/uL (0.5-4.7); ABSOLUTE MONOCYTES (AUTO) 1.5 10^3/uL (0.1-1.4); ABSOLUTE NEUT (AUTO) 7.8 10^3/uL (1.7-8.2); BASOPHILS % (AUTO) 0.6 % (0-2); EOSINOPHILS % (AUTO) 5.8 % (0-6); HEMATOCRIT 29.4 % (37.9-51.0); HEMOGLOBIN 9.6 g/dL (13.5-17.0); LYMPHOCYTES % (AUTO) 19.4 % (13-45); MEAN CORPUSCULAR HEMOGLOBIN 26.6 pg (27.0-33.4); MEAN CORPUSCULAR HGB CONC 32.7 g/dL (32.0-36.0); MEAN CORPUSCULAR VOLUME 82 fl (80-97); PLATELET COUNT 287 10^3/uL (150-450); RED BLOOD COUNT 3.61 10^6/uL (4.35-5.55); RED CELL DISTRIBUTION WIDTH 21.5 % (11.5-14.0); SEGMENTED NEUTROPHILS % (AUTO) 62.2 % (42-78); TOTAL CELLS COUNTED % (AUTO) 100 %; WHITE BLOOD COUNT 12.5 10^3/uL (4.0-10.5)
[2018-04-01 07:46] LABS: ANION GAP 8 (5-19); BLOOD UREA NITROGEN 23 mg/dL (7-20); CALCIUM 8.5 mg/dL (8.4-10.2); CARBON DIOXIDE 38 mmol/L (22-30); CHLORIDE 95 mmol/L (98-107); GLUCOSE 91 mg/dL (75-110); POTASSIUM 3.9 mmol/L (3.6-5.0); SODIUM 140.6 mmol/L (137-145)
[2018-04-01] MEDS: FLUTICASONE NASAL SPRAY 50 MCG/SPRY 120 SPRAY/16 GM NASL SCH (09:17)
[2018-04-01] MEDS: BUDESONIDE/FORMOTEROL 160-4.5 MCG 60 PUFF/6 GM MDI IH SCH (09:18)
[2018-04-01] MEDS: TORSEMIDE 20 MG TABLET PO SCH (09:18)
[2018-04-01] MEDS: TAMSULOSIN HCL 0.4 MG CAP.SR.24H PO SCH (09:18)
[2018-04-01] MEDS: DIGOXIN 0.125 MG TABLET PO SCH (09:24)
[2018-04-01] MEDS: MIDODRINE HCL 5 MG TABLET PO SCH ×2 (09:31→14:21)
[2018-04-01] MEDS: VENLAFAXINE HCL 37.5 MG CAP.SR.24H PO SCH (09:33)
[2018-04-01] MEDS: PSYLLIUM SEED-SF 5.85 GM PACKET PO SCH (09:35)
[2018-04-01] MEDS: HYDROCODONE/ACETAMINOPHEN 7.5-325 MG TABLET PO PRN (09:39)
[2018-04-01 10:26] LABS: APPEARANCE,URINE CLEAR; BILIRUBIN,URINE NEGATIVE (NEGATIVE); COLOR,URINE YELLOW; GLUCOSE, URINE NEGATIVE (NEGATIVE); KETONES,URINE NEGATIVE (NEGATIVE); LEUKOCYTE ESTERASE,URINE NEGATIVE (NEGATIVE); NITRITE,URINE NEGATIVE (NEGATIVE); PROTEIN,URINE 30 mg/dL (NEGATIVE); UROBILINOGEN,URINE NEGATIVE mg/dL (<2.0)
--- NOTE | 2018-04-01 10:41 | RADIOLOGY REPORT (SQ) ---
EXAM DESCRIPTION: CHEST 2 VIEWS COMPLETED DATE/TIME: 04/01/2018 10:30 am REASON FOR STUDY: Leukocytosis, pneumonia COMPARISON: 10/30/2016 EXAM PARAMETERS: NUMBER OF VIEWS: two views TECHNIQUE: Digital Frontal and Lateral radiographic views of the chest acquired. RADIATION DOSE: NA LIMITATIONS: none FINDINGS: LUNGS AND PLEURA: There is increased opacification in the right base. There is a small ri ght pleural effusion that appears somewhat loculated. There is hyperexpansion of the lungs with flat tening of the diaphragms. There is thickening along the major fissure as seen on the lateral view. MEDIASTINUM AND HILAR STRUCTURES: No masses or contour abnormalities. HEART AND VASCULAR STRUCTURES: Heart normal size. No evidence for failure. BONES: No acute findings. HARDWARE: Pacemaker. Sternotomy wires. OTHER: No other significant finding. IMPRESSION: 1. Right lower lobe pneumonia. 2. Right pleural effusion. 3. There may be some pleural fluid in the fissure on the right. TECHNICAL DOCUMENTATION: JOB ID: [id number] [facility]- All Rights Reserved Reading location - IP/workstation name: [email or web address]
--- NOTE | 2018-04-01 11:02 | PDOC PROGRESS REPORT ---
Subjective Progress Note for:: 03/30/18 Subjective:: Patient seems to be doing better with gradual improvement. His leg swelling is less, breathing is more comfortable Pt is denying any chest arm or neck discomfort. Patient denying any PND, orthopnea. Patient denied any sustained palpitations, dizziness, syncope, near syncope. Patient denying any fever chills. Patient denying any other significant discomfort. Patient is maintaining atrial fibrillation with intermittent ventricular paced beats. Review of systems: Rest review of systems negative. Medications: Medications have been reviewed. Reason For Visit: COPD EXACERBATION PNEUMONIA Physical Exam Vital Signs: Temp Pulse Resp BP Pulse Ox 98.2 F 110 H 18 141/75 H 90 L 03/30/18 16:00 03/30/18 19:39 03/30/18 19:39 03/30/18 16:00 03/30/18 19:39 Intake & Output 03/29/18 03/30/18 03/31/18 06:59 06:59 06:59 Intake Total 1745 2412 598 Output Total 1122 Balance 623 2412 598 Weight 71.8 kg 73.3 kg Exam: GENERAL: well-nourished and in no acute distress. Alert and oriented x3 HEAD: Atraumatic, normocephalic. EYES: Pupils equal round and reactive to light, extraocular movements intact, sclera anicteric, conjunctiva are normal. ENT: TMs normal, nares patent, oropharynx clear without exudates. Moist mucous membranes. No oral ulcerations or bleeding gums noted NECK: supple without lymphadenopathy. Trachea is central. No cervical or axillary lymphadenopathy noted. Carotids are 2+, JVD WNL LUNGS: Respiration seems nonlabored, no significant accessory muscle action noted. Bibasilar fine crackles and few a scattered wheezes rales or rhonchi noted. No significant dullness noted on percussion. CHEST: Palpation of the chest wall shows no significant chest wall tenderness. 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 ABDOMEN: Soft, no significant tenderness appreciated, normoactive bowel sounds. No guarding, no rebound. No rigidity noted . No masses appreciated. EXTREMITIES: Pedal pulses are 1-2+, no calf tenderness noted. No clubbing or cyanosis. 1-2+ pedal edema noted NEUROLOGICAL: Focused neurological exam showed no significant neurologic deficit. Normal speech, no focal weakness appreciated. PSYCH: Normal mood, normal affect. Judgment and insight within normal limits. SKIN: No significant ecchymosis, skin is noted to be warm. MUSCULOSKELETAL EXAM: No significant acute joint swelling noted. Results Laboratory Results: 03/30/18 05:55 03/30/18 05:55 03/30/18 03/30/18 05:55 05:55 WBC 9.8 RBC 3.57 L Hgb 9.6 L Hct 28.5 L MCV 80 MCH 26.8 L MCHC 33.5 RDW 21.6 H Plt Count 300 Seg Neutrophils % 53.8 Lymphocytes % 23.1 Monocytes % 11.6 Eosinophils % 11.0 H Basophils % 0.5 Absolute Neutrophils 5.3 Absolute Lymphocytes 2.3 Absolute Monocytes 1.1 Absolute Eosinophils 1.1 H Absolute Basophils 0.0 Sodium 139.0 Potassium 3.9 Chloride 93 L Carbon Dioxide 41 H* Anion Gap 5 BUN 23 H Creatinine 0.70 Est GFR ( Amer) > 60 Est GFR (Non-Af Amer) > 60 Glucose 85 Calcium 8.7 03/26/18 08:05 Sputum Gram Stain - Final 03/26/18 08:05 Sputum Sputum Culture - Final Stenotrophomonas Maltophilia Yeast, Not Ngoc Albicans Normal Brittny Absent 03/25/18 03/25/18 03/25/18 13:04 13:04 19:35 Creatine Kinase < 20 L < 20 L CK-MB (CK-2) 1.04 Troponin I 0.019 03/25/18 03/26/18 03/26/18 19:35 04:14 04:14 Creatine Kinase < 20 L CK-MB (CK-2) 0.88 0.68 Troponin I 0.023 0.024 EKG Comments: Telemetry shows atrial fibrillation with intermittent high ventricular response and ventricular paced beats Impressions: Chest X-Ray 03/24/18 22:47 IMPRESSION: No significant change. Assessment & Plan - Diagnosis (1) Acute on chronic diastolic heart failure Is this a current diagnosis for this admission?: Yes (2) COPD exacerbation Is this a current diagnosis for this admission?: Yes (3) Hypotension Is this a current diagnosis for this admission?: Yes (4) Lower extremity edema Is this a current diagnosis for this admission?: Yes (5) Atrial fibrillation Qualifiers: Atrial fibrillation type: chronic Qualified Code(s): I48.2 - Chronic atrial fibrillation (6) CAD (coronary artery disease) Qualifiers: Coronary Disease-Associated Artery/Lesion type: [place] artery Is this a current diagnosis for this admission?: Yes (7) HLD (hyperlipidemia) Qualifiers: Hyperlipidemia type: unspecified Qualified Code(s): E78.5 - Hyperlipidemia , unspecified Is this a current diagnosis for this admission?: Yes (8) HTN (hypertension) Qualifiers: Hypertension type: essential hypertension Qualified Code(s): I10 - Essential (primary) hypertension Is this a current diagnosis for this admission?: Yes (9) Cardiac pacemaker in situ Is this a current diagnosis for this admission?: Yes - Notes Notes: Agree with considering to reduce dose of diltiazem because of hypotension. Continue digoxin in current dose. Dig level is noted to be in therapeutic range. Acute on chronic diastolic heart failure: Continue patient on torsemide 20 mg p.o. daily. Monitor electrolytes and renal functions. Consider reducing to 10 mg p.o. daily once edema subsides. COPD exacerbation: Continue current management plans. Hypotension: Have placed patient on Midodrin so that we can use diuretics. Continue patient on Midodrin 5 mg p.o. twice daily. Blood pressures are stable. Lower extremity edema: Mostly related to right-sided heart failure but contribution from venous insufficiency and dependency also there. Will monitor central blood volume closely. Atrial fibrillation: Currently rate is well controlled. Patient has underlying pacemaker. Considered a borderline candidate for chronic anticoagulation. Coronary artery disease: Currently without any symptoms of angina or angina equivalent symptoms. Hyperlipidemia: Continue statin therapy. Hypertension: Currently patient noted to have relatively low blood pressure but seems to have stabilized now. However patient mentating well. Cardiac pacemaker in situ: Currently functioning adequately. - Time Time with patient: 15-25 minutes - CODE STATUS : was discussed, patient remains DO NOT RESUSCITATE. Surrogate decision-maker unchanged. Multiple medical problems were addressed. More than 50% of the time spent coordinating care, discussing management plans with involved caregivers. Management plans discussed with involved personnels. Medical decision making was of moderate to high complexity, patient's has multiple comorbidities.
--- NOTE | 2018-04-01 11:05 | PDOC PROGRESS REPORT ---
Subjective Progress Note for:: 03/31/18 Subjective:: Patient on reduced dose of Cardizem. Heart rate control is better. Blood pressure has been stable. Patient being referred for hospice services or at least discussion is now ongoing. Patient seems to be doing better with gradual improvement. His leg swelling is less, breathing is more comfortable Pt is denying any chest arm or neck discomfort. Patient denying any PND, orthopnea. Patient denied any sustained palpitations, dizziness, syncope, near syncope. Patient denying any fever chills. Patient denying any other significant discomfort. Patient is maintaining atrial fibrillation with intermittent ventricular paced beats. Review of systems: Rest review of systems negative. Medications: Medications have been reviewed. Reason For Visit: COPD EXACERBATION PNEUMONIA Physical Exam Vital Signs: Temp Pulse Resp BP Pulse Ox 98.5 F 108 H 18 92/64 L 97 03/31/18 11:04 03/31/18 14:00 03/31/18 13:38 03/31/18 15:42 03/31/18 13:38 Intake & Output 03/30/18 03/31/18 04/01/18 06:59 06:59 06:59 Intake Total 2412 1089 150 Balance 2412 1089 150 Weight 73.3 kg 73.6 kg Exam: GENERAL: well-nourished and in no acute distress. Alert and oriented x3 HEAD: Atraumatic, normocephalic. EYES: Pupils equal round and reactive to light, extraocular movements intact, sclera anicteric, conjunctiva are normal. ENT: TMs normal, nares patent, oropharynx clear without exudates. Moist mucous membranes. No oral ulcerations or bleeding gums noted NECK: supple without lymphadenopathy. Trachea is central. No cervical or axillary lymphadenopathy noted. Carotids are 2+, JVD WNL LUNGS: Respiration seems nonlabored, no significant accessory muscle action noted. Bibasilar fine crackles with few a scattered wheezes rales or rhonchi noted. No significant dullness noted on percussion. CHEST: Palpation of the chest wall shows no significant chest wall tenderness. 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 ABDOMEN: Soft, no significant tenderness appreciated, normoactive bowel sounds. No guarding, no rebound. No rigidity noted . No masses appreciated. EXTREMITIES: Pedal pulses are 1-2+, no calf tenderness noted. No clubbing or cyanosis. negative pedal edema noted NEUROLOGICAL: Focused neurological exam showed no significant neurologic deficit. Normal speech, no focal weakness appreciated. PSYCH: Normal mood, normal affect. Judgment and insight within normal limits. SKIN: No significant ecchymosis, skin is noted to be warm. MUSCULOSKELETAL EXAM: No significant acute joint swelling noted. Results Laboratory Results: 03/31/18 05:45 03/31/18 05:45 03/31/18 03/31/18 05:45 05:45 WBC 20.5 H D RBC 4.00 L Hgb 10.6 L Hct 32.4 L MCV 81 MCH 26.5 L MCHC 32.6 RDW 21.5 H Plt Count 331 Seg Neutrophils % Not Reportable Lymphocytes % Not Reportable Monocytes % Not Reportable Eosinophils % Not Reportable Basophils % Not Reportable Absolute Neutrophils Not Reportable Absolute Lymphocytes Not Reportable Absolute Monocytes Not Reportable Absolute Eosinophils Not Reportable Absolute Basophils Not Reportable Sodium 139.2 Potassium 4.4 Chloride 95 L Carbon Dioxide 37 H Anion Gap 7 BUN 23 H Creatinine 0.76 Est GFR ( Amer) > 60 Est GFR (Non-Af Amer) > 60 Glucose 88 Calcium 8.4 03/25/18 03/25/18 03/25/18 13:04 13:04 19:35 Creatine Kinase < 20 L < 20 L CK-MB (CK-2) 1.04 Troponin I 0.019 03/25/18 03/26/18 03/26/18 19:35 04:14 04:14 Creatine Kinase < 20 L CK-MB (CK-2) 0.88 0.68 Troponin I 0.023 0.024 EKG Comments: Atrial fibrillation with relatively well-controlled heart rate response and intermittent ventricular paced beats. Impressions: Chest X-Ray 03/24/18 22:47 IMPRESSION: No significant change. Assessment & Plan - Diagnosis (1) Acute on chronic diastolic heart failure Is this a current diagnosis for this admission?: Yes (2) COPD exacerbation Is this a current diagnosis for this admission?: Yes (3) Hypotension Is this a current diagnosis for this admission?: Yes (4) Lower extremity edema Is this a current diagnosis for this admission?: Yes (5) Atrial fibrillation Qualifiers: Atrial fibrillation type: chronic Qualified Code(s): I48.2 - Chronic atrial fibrillation (6) CAD (coronary artery disease) Qualifiers: Coronary Disease-Associated Artery/Lesion type: [place] artery Is this a current diagnosis for this admission?: Yes (7) HLD (hyperlipidemia) Qualifiers: Hyperlipidemia type: unspecified Qualified Code(s): E78.5 - Hyperlipidemia , unspecified Is this a current diagnosis for this admission?: Yes (8) HTN (hypertension) Qualifiers: Hypertension type: essential hypertension Qualified Code(s): I10 - Essential (primary) hypertension Is this a current diagnosis for this admission?: Yes (9) Cardiac pacemaker in situ Is this a current diagnosis for this admission?: Yes - Notes Notes: Currently on Cardizem 30 mg every 6. Tolerating this dose well. Heart rate now reasonably well controlled. Continue other supportive care. Patient has significant COPD therefore beta-sung would be second choice but may need to be on it if needed. Acute on chronic diastolic heart failure: Continue patient on torsemide 20 mg p.o. daily. Monitor electrolytes and renal functions. Consider reducing to 10 mg p.o. daily once edema subsides. COPD exacerbation: Continue current management plans. Hypotension: Have placed patient on Midodrin so that we can use diuretics. Continue patient on Midodrin 5 mg p.o. twice daily. Blood pressures are stable. Lower extremity edema: Mostly related to right-sided heart failure but contribution from venous insufficiency and dependency also there. Will monitor central blood volume closely. Atrial fibrillation: Currently rate is well controlled. Patient has underlying pacemaker. Considered a borderline candidate for chronic anticoagulation. Coronary artery disease: Currently without any symptoms of angina or angina equivalent symptoms. Hyperlipidemia: Continue statin therapy. Hypertension: Currently patient noted to have relatively low blood pressure but seems to have stabilized now. However patient mentating well. Cardiac pacemaker in situ: Currently functioning adequately. - Time Time with patient: 15-25 minutes - CODE STATUS : was discussed, patient remains DO NOT RESUSCITATE. Surrogate decision-maker unchanged. Multiple medical problems were addressed. More than 50% of the time spent coordinating care, discussing management plans with involved caregivers. Management plans discussed with involved personnels. Medical decision making was of moderate to high complexity, patient's has multiple comorbidities. Medications reviewed and adjusted accordingly: Yes
--- NOTE | 2018-04-01 11:11 | PDOC PROGRESS REPORT ---
Subjective Progress Note for:: 04/01/18 Subjective:: Patient on reduced dose of Cardizem. Heart rate control is better. Blood pressure has been stable. Patient tells me that he wants to go home and has agreed for hospice services. Chest x-ray reviewed. Patient seems to be doing better with gradual improvement. His leg swelling is less, breathing is more comfortable Pt is denying any chest arm or neck discomfort. Patient denying any PND, orthopnea. Patient denied any sustained palpitations, dizziness, syncope, near syncope. Patient denying any fever chills. Patient denying any other significant discomfort. Patient is maintaining atrial fibrillation with intermittent ventricular paced beats. Review of systems: Rest review of systems negative. Medications: Medications have been reviewed. Reason For Visit: COPD EXACERBATION PNEUMONIA Physical Exam Vital Signs: Temp Pulse Resp BP Pulse Ox 97.4 F 80 20 105/45 L 100 04/01/18 08:13 04/01/18 08:13 04/01/18 08:05 04/01/18 08:13 04/01/18 08:13 Intake & Output 03/31/18 04/01/18 04/02/18 06:59 06:59 06:59 Intake Total 1089 710 Balance 1089 710 Weight 73.6 kg 73.6 kg Exam: GENERAL: well-nourished and in no acute distress. Alert and oriented x3 HEAD: Atraumatic, normocephalic. EYES: Pupils equal round and reactive to light, extraocular movements intact, sclera anicteric, conjunctiva are normal. ENT: TMs normal, nares patent, oropharynx clear without exudates. Moist mucous membranes. No oral ulcerations or bleeding gums noted NECK: supple without lymphadenopathy. Trachea is central. No cervical or axillary lymphadenopathy noted. Carotids are 2+, JVD WNL LUNGS: Respiration seems nonlabored, no significant accessory muscle action noted. Bibasilar coarse crackles at the extreme base and few a scattered wheezes rales or rhonchi noted. No significant dullness noted on percussion. CHEST: Palpation of the chest wall shows no significant chest wall tenderness. 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 ABDOMEN: Soft, no significant tenderness appreciated, normoactive bowel sounds. No guarding, no rebound. No rigidity noted . No masses appreciated. EXTREMITIES: Pedal pulses are 1-2+, no calf tenderness noted. No clubbing or cyanosis. 1+ pedal edema noted NEUROLOGICAL: Focused neurological exam showed no significant neurologic deficit. Normal speech, no focal weakness appreciated. PSYCH: Normal mood, normal affect. Judgment and insight within normal limits. SKIN: No significant ecchymosis, skin is noted to be warm. MUSCULOSKELETAL EXAM: No significant acute joint swelling noted. Results Laboratory Results: 04/01/18 06:30 04/01/18 06:30 04/01/18 04/01/18 04/01/18 06:30 06:30 09:30 WBC 12.5 H RBC 3.61 L Hgb 9.6 L Hct 29.4 L MCV 82 MCH 26.6 L MCHC 32.7 RDW 21.5 H Plt Count 287 Seg Neutrophils % 62.2 Lymphocytes % 19.4 Monocytes % 12.0 Eosinophils % 5.8 Basophils % 0.6 Absolute Neutrophils 7.8 Absolute Lymphocytes 2.4 Absolute Monocytes 1.5 H Absolute Eosinophils 0.7 H Absolute Basophils 0.1 Sodium 140.6 Potassium 3.9 Chloride 95 L Carbon Dioxide 38 H Anion Gap 8 BUN 23 H Creatinine 0.81 Est GFR ( Amer) > 60 Est GFR (Non-Af Amer) > 60 Glucose 91 Calcium 8.5 Urine Color YELLOW Urine Appearance CLEAR Urine pH 9.0 Ur Specific [place] 1.010 Urine Protein 30 H Urine Glucose (UA) NEGATIVE Urine Ketones NEGATIVE Urine Blood LARGE H Urine Nitrite NEGATIVE Ur Leukocyte Esterase NEGATIVE Urine WBC (Auto) 2 Urine RBC (Auto) 60 03/25/18 03/25/18 03/25/18 13:04 13:04 19:35 Creatine Kinase < 20 L < 20 L CK-MB (CK-2) 1.04 Troponin I 0.019 03/25/18 03/26/18 03/26/18 19:35 04:14 04:14 Creatine Kinase < 20 L CK-MB (CK-2) 0.88 0.68 Troponin I 0.023 0.024 Impressions: Chest X-Ray 04/01/18 07:00 IMPRESSION: 1. Right lower lobe pneumonia. 2. Right pleural effusion. 3. There may be some pleural fluid in the fissure on the right. Assessment & Plan - Diagnosis (1) Acute on chronic diastolic heart failure Is this a current diagnosis for this admission?: Yes (2) COPD exacerbation Is this a current diagnosis for this admission?: Yes (3) Hypotension Is this a current diagnosis for this admission?: Yes (4) Lower extremity edema Is this a current diagnosis for this admission?: Yes (5) Atrial fibrillation Qualifiers: Atrial fibrillation type: chronic Qualified Code(s): I48.2 - Chronic atrial fibrillation (6) CAD (coronary artery disease) Qualifiers: Coronary Disease-Associated Artery/Lesion type: [place] artery Is this a current diagnosis for this admission?: Yes (7) HLD (hyperlipidemia) Qualifiers: Hyperlipidemia type: unspecified Qualified Code(s): E78.5 - Hyperlipidemia , unspecified Is this a current diagnosis for this admission?: Yes (8) HTN (hypertension) Qualifiers: Hypertension type: essential hypertension Qualified Code(s): I10 - Essential (primary) hypertension Is this a current diagnosis for this admission?: Yes (9) Cardiac pacemaker in situ Is this a current diagnosis for this admission?: Yes - Notes Notes: Chest x-ray reviewed. Noted to have minimal CHF. Possible right basal pneumonia. Marked emphysema and COPD changes noted. Patient has been stable from cardiac standpoint for last several days. Chest x-ray shows relatively well controlled CHF. Blood pressure has been stable. Will sign off. Please reconsult if needed. Acute on chronic diastolic heart failure: Continue patient on torsemide 20 mg p.o. daily. Monitor electrolytes and renal functions. Consider reducing to 10 mg p.o. daily once edema subsides. COPD exacerbation: Continue current management plans. Hypotension: Have placed patient on Midodrin so that we can use diuretics. Continue patient on Midodrin 5 mg p.o. twice daily. Blood pressures are stable. Lower extremity edema: Mostly related to right-sided heart failure but contribution from venous insufficiency and dependency also there. Will monitor central blood volume closely. Atrial fibrillation: Currently rate is well controlled. Patient has underlying pacemaker. Considered a borderline candidate for chronic anticoagulation. Coronary artery disease: Currently without any symptoms of angina or angina equivalent symptoms. Hyperlipidemia: Continue statin therapy. Hypertension: Currently patient noted to have relatively low blood pressure but seems to have stabilized now. However patient mentating well. Cardiac pacemaker in situ: Currently functioning adequately. Will sign off. Please reconsult if needed. - Time Time with patient: Greater than 35 minutes - CODE STATUS : was discussed, patient remains DO NOT RESUSCITATE. Surrogate decision-maker unchanged. Multiple medical problems were addressed. More than 50% of the time spent coordinating care, discussing management plans with involved caregivers. Management plans discussed with involved personnels. Medical decision making was of moderate to high complexity, patient's has multiple comorbidities. Medications reviewed and adjusted accordingly: Yes
[2018-04-01 11:55] VITALS: BP 94/52
--- NOTE | 2018-04-01 12:56 | PDOC TRANSFER SUMMARY ---
General - Admit/Disc Date/PCP Admission Date/Primary Care Provider: 03/25/18 00:23 Discharge Date: 04/01/18 - Discharge Diagnosis (1) Encounter for home hospice care Is this a current diagnosis for this admission?: Yes Summary: Patient has had multiple recent hospitalizations with declining health. Long discussion on 03/31/18 regarding goals of care and transitioning to hospice. Patient and family met with hospice agency and agreed to transition care. Most medical supplies are already at home. Hospice agency will see patient on 04/04. Non-essential medications were discontinued at discharge. (2) Anxiety Is this a current diagnosis for this admission?: Yes Summary: Stable. Will continue home Klonopin. Dose can be adjusted as needed (3) Atrial fibrillation with RVR Is this a current diagnosis for this admission?: Yes Summary: Stable. Was followed by Cardiology this admission. Given transition to hospice, will discontinue cardiac medications as these are life sustaining and are not oriented towards comfort. (4) Do not resuscitate Is this a current diagnosis for this admission?: Yes Summary: Code status documented in chart (5) Pneumonia Is this a current diagnosis for this admission?: Yes Summary: Noted on admission CXR and subsequent Xrays. Was initially treated with antibiotics however now discontinued. - Additional Information Resuscitation Status: Full Code Discharge Diet: Cardiac Discharge Activity: Activity As Tolerated, Balance Activity w/Rest, Weigh Daily Home Medications: Budesonide/Formoterol Fumarate [Symbicort 160-4.5 Mcg Inhaler] 2 puff IH Q12 Clonazepam [Klonopin] 0.5 mg PO Q8 03/25/18 Hydrocodone/Acetaminophen [Hydrocodone-Acetamin 7.5-325] 1 tab PO Q8HP PRN 03/25 Venlafaxine HCl ER [Effexor Xr 37.5 mg Cap.sr] 37.5 mg PO DAILY 03/25/18 History of Present Illness Admission Date/PCP: 03/25/18 00:23 Patient complains of: SOB and lower extremity edema History of Present Illness: JEAN-PIERRE OLIVAREZ is a 82 year old male with past medical history of atrial fibrillation, COPD, chronic bronchitis, recurrent MRSA pneumonia, anxiety, 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 Chronically ill with acute care hospitalization 33 days of the last 9 weeks. Patient discharged 5 days ago with diagnosis of Acinetobacte, pneumonia sensitive to meropenem. Patient completed 10 day course of meropenem, denying fever chills nausea vomiting or chest pain. Today he presents with shortness of breath and complains of edema. Workup reveals persistent leukocytosis and Imaging reveals a small right-sided pleural effusion and bilateral basal infiltrate suggestive of pneumonia versus atelectasis. Labs also notable for hyperkalemia and chronic anemia. He was started on empiric antibiotics and referred to the hospitalist for admission. Physical Exam Vital Signs: Temp Pulse Resp BP Pulse Ox 98.3 F 98 18 94/52 L 95 04/01/18 11:54 04/01/18 11:54 04/01/18 11:54 04/01/18 11:54 04/01/18 11:54 Intake & Output 03/31/18 04/01/18 04/02/18 06:59 06:59 06:59 Intake Total 1089 710 Balance 1089 710 Weight 73.6 kg 73.6 kg General appearance: PRESENT: thin, other - Very pleasant, chronically ill appearing Mouth exam: PRESENT: dry mucosa Respiratory exam: PRESENT: crackles, decreased breath sounds, rhonchi Cardiovascular exam: PRESENT: irregular rhythm. ABSENT: tachycardia GI/Abdominal exam: PRESENT: soft. ABSENT: tenderness Neurological exam: PRESENT: alert, awake, oriented to time, oriented to situation Psychiatric exam: PRESENT: appropriate affect Results Laboratory Results: 04/01/18 06:30 04/01/18 06:30 04/01/18 04/01/18 04/01/18 06:30 06:30 09:30 WBC 12.5 H RBC 3.61 L Hgb 9.6 L Hct 29.4 L MCV 82 MCH 26.6 L MCHC 32.7 RDW 21.5 H Plt Count 287 Seg Neutrophils % 62.2 Lymphocytes % 19.4 Monocytes % 12.0 Eosinophils % 5.8 Basophils % 0.6 Absolute Neutrophils 7.8 Absolute Lymphocytes 2.4 Absolute Monocytes 1.5 H Absolute Eosinophils 0.7 H Absolute Basophils 0.1 Sodium 140.6 Potassium 3.9 Chloride 95 L Carbon Dioxide 38 H Anion Gap 8 BUN 23 H Creatinine 0.81 Est GFR ( Amer) > 60 Est GFR (Non-Af Amer) > 60 Glucose 91 Calcium 8.5 Urine Color YELLOW Urine Appearance CLEAR Urine pH 9.0 Ur Specific [place] 1.010 Urine Protein 30 H Urine Glucose (UA) NEGATIVE Urine Ketones NEGATIVE Urine Blood LARGE H Urine Nitrite NEGATIVE Ur Leukocyte Esterase NEGATIVE Urine WBC (Auto) 2 Urine RBC (Auto) 60 03/25/18 03/25/18 03/25/18 13:04 13:04 19:35 Creatine Kinase < 20 L < 20 L CK-MB (CK-2) 1.04 Troponin I 0.019 03/25/18 03/26/18 03/26/18 19:35 04:14 04:14 Creatine Kinase < 20 L CK-MB (CK-2) 0.88 0.68 Troponin I 0.023 0.024 Impressions: Chest X-Ray 04/01/18 07:00 IMPRESSION: 1. Right lower lobe pneumonia. 2. Right pleural effusion. 3. There may be some pleural fluid in the fissure on the right. Transfer Plan - Disposition Transfer Plan: Home with home hospice - Time Spent with Patient Time spent with patient: Less than 30 Minutes Qualifiers - * PATIENT BEING DISCHARGED WITH ANY OF THE FOLLOWING DIAGNOSIS: No
== END 2018-04-01 14:33 | disposition hospice, home (50) | DRG 291 ==
LOC: ER 22:36 → 4N 03-25 00:23 → EH 03-25 00:57 → 5 03-25 02:25
PROVIDERS: ADMIT Internal Medicine; ATTEND Internal Medicine
PROC: 5A09457 Assistance with Respiratory Ventilation, 24-96 Consecutive Hours, Continuous Positive Airway Pressure (ICD-10-PCS; principal; 2018-03-24)
PROC: 3E0F73Z Introduction of Anti-inflammatory into Respiratory Tract, Via Natural or Artificial Opening (ICD-10-PCS; 2018-03-25)
DX: I11.0 Hypertensive heart disease with heart failure (principal); J18.9 Pneumonia, unspecified organism; J44.1 Chronic obstructive pulmonary disease with (acute) exacerbation; J44.0 Chronic obstructive pulmonary disease with (acute) lower respiratory infection; I50.33 Acute on chronic diastolic (congestive) heart failure; Z66 Do not resuscitate; Z51.5 Encounter for palliative care; F41.9 Anxiety disorder, unspecified; I48.2 Chronic atrial fibrillation; E87.5 Hyperkalemia; I25.10 Atherosclerotic heart disease of native coronary artery without angina pectoris; E78.00 Pure hypercholesterolemia, unspecified; K21.9 Gastro-esophageal reflux disease without esophagitis; M19.90 Unspecified osteoarthritis, unspecified site; F03.90 Unspecified dementia, unspecified severity, without behavioral disturbance, psychotic disturbance, mood disturbance, and anxiety; K59.03 Drug induced constipation; D50.9 Iron deficiency anemia, unspecified; I95.9 Hypotension, unspecified; I25.2 Old myocardial infarction; Z86.14 Personal history of Methicillin resistant Staphylococcus aureus infection; Z95.0 Presence of cardiac pacemaker; Z85.828 Personal history of other malignant neoplasm of skin; Z95.1 Presence of aortocoronary bypass graft; Z87.891 Personal history of nicotine dependence; Z79.899 Other long term (current) drug therapy; Z88.3 Allergy status to other anti-infective agents; Z83.6 Family history of other diseases of the respiratory system; Z80.8 Family history of malignant neoplasm of other organs or systems; Z79.51 Long term (current) use of inhaled steroids; Z79.52 Long term (current) use of systemic steroids
CPT/HCPCS: 36415; 71045; 71046; 80048; 80053; 80162; 81001; 82550; 82553; 82803; 83735; 83880; 84484; 85025; 85027; 87040; 87070; 87077; 87086; 87088; 87186; 87205; 93005; 93010; 94640; 94660; 94667; 94668; 94799; 99285; J1642; J1644; J1940; J2185; J3490; J7620